=== PATIENT | female | born 1945 | race Caucasian/White ===

== ENCOUNTER 2020-01-23 12:45 | Outpatient (REF) | payer MEDICARE, SELFPAY ==
--- NOTE | 2020-01-23 12:53 | XR_ITS ---
EXAMINATION: XR HIP, LEFT CLINICAL INFORMATION: Follow-up fracture COMPARISON: Previous x-rays most recent November 2019 TECHNIQUE: Two views of the left hip. FINDINGS: There is an intramedullary bruce, proximal compression/lag screw single distal cortical screw transfixing the left femoral intertrochanteric fracture. Orthopedic hardware is unchanged. Fracture lines are still seen. Lesser trochanter fracture is displaced. There is bony callus formation seen adjacent to the greater and lesser trochanters. Soft tissues are unremarkable. IMPRESSION: ORIF of left femoral intertrochanteric fracture. Fracture line still seen.
== END 2020-01-23 12:46 | disposition home or self-care (01) ==
LOC: HO.XRAY 12:45
PROVIDERS: PCP Internal Medicine; Visit Provider Physician Assistant
DX: M25.552 Pain in left hip (principal); S72.143D Displaced intertrochanteric fracture of unspecified femur, subsequent encounter for closed fracture with routine healing
CPT/HCPCS: 73502; 99212

== ENCOUNTER → 2020-02-13 10:11 | Outpatient (BNVA) | payer MEDICARE, SELFPAY | PROVIDERS: PCP Internal Medicine; Visit Provider Surgery | DX: Z76.89 Persons encountering health services in other specified circumstances (principal) ==

== ENCOUNTER → 2020-02-17 11:36 | Outpatient (BNVA) | payer MEDICARE, SELFPAY | PROVIDERS: PCP Internal Medicine; Referring Provider Internal Medicine; Visit Provider Internal Medicine | DX: J44.9 Chronic obstructive pulmonary disease, unspecified (principal); R91.1 Solitary pulmonary nodule; Z79.52 Long term (current) use of systemic steroids | CPT/HCPCS: 99212 ==

== ENCOUNTER 2020-03-12 13:45 | Outpatient (REF) | payer MEDICARE, SELFPAY ==
--- NOTE | 2020-03-12 13:47 | CT_ITS ---
EXAMINATION: CT CHEST WITHOUT CONTRAST CLINICAL INFORMATION: Solitary pulmonary nodule COMPARISON: CT chest 12/21/2019 TECHNIQUE: Multidetector volumetric CT imaging of the chest was done. Axial MIP volume rendering provided. Sagittal and coronal reformatted images were obtained. This CT examination was performed using dose optimization techniques as appropriate, variously including the following: *Automated exposure control *Adjustment of mA and/or kV according to patient size (this includes techniques or standardized protocols for targeted exams where dose is matched to indication/reason for exam; i.e. 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 LUNGS: The lungs are hyperinflated with postsurgical changes in the right upper lobe following partial resection. There is a spiculated noted left lung apex measuring 8 x 7 mm surrounded with spiculations extending to the anterior pleura and adjacent parenchyma. It is suspicious. There is a left upper lobe anterior segment linear reticulation extending from the hilum to the anterior pleural surface consistent with a thick scar or postradiation pneumonitis. Similar findings also seen in the right upper lobe anterior segment at the same level. There is underlying mild emphysema with no new pulmonary nodule or mass seen. MEDIASTINUM: The central trachea and the bronchi are widely patent. The heart size and the great vessels are normal caliber. Small shotty lymph nodes are seen in the mediastinum. There are coronary artery calcifications. No pericardial effusion seen. Partially visualized thyroid lobes are symmetrical. PLEURA: There is no pleural effusion. No pleural mass or thickening. AXILLA: No abnormal sized axillary lymph nodes seen. There is 1.5 x 1.0 cm inferior left breast density on axial image 27/3. It appears unchanged to last exam and as back as CT chest from 2012. The rest of the chest wall is unremarkable. UPPER ABDOMEN: The liver, spleen, pancreas and bilateral adrenal glands are unremarkable. OSSEOUS STRUCTURES: There is moderate dextroscoliosis. There are degenerative disc changes with spondylosis in mid dorsal spine. No lytic or sclerotic process seen. There is S-shaped thoracal lumbar scoliosis with upper dorsal dextroscoliosis. CT/CT chest wo con IMPRESSION: 1. Emphysema with scoliosis. 2. Postsurgical changes right upper lobe posteriorly, stable. 3. Linear atelectasis in both upper lobe anterior segment likely post radiation changes, stable. 4. Spiculated lesion left lung apex is stable. 5. Left breast solitary density unchanged since 2012 likely residual seroma.
== END 2020-03-12 13:46 | disposition home or self-care (01) ==
LOC: HO.CT 13:45
PROVIDERS: Visit Provider Surgery
DX: R91.1 Solitary pulmonary nodule (principal); C34.11 Malignant neoplasm of upper lobe, right bronchus or lung; Z79.01 Long term (current) use of anticoagulants
CPT/HCPCS: 71250; 85610; 99211

== ENCOUNTER → 2020-03-26 10:38 | Outpatient (BNVA) | payer MEDICARE, SELFPAY | PROVIDERS: PCP Internal Medicine; Visit Provider Internal Medicine | DX: I26.99 Other pulmonary embolism without acute cor pulmonale (principal); Z51.81 Encounter for therapeutic drug level monitoring; Z79.01 Long term (current) use of anticoagulants | CPT/HCPCS: 85610; 99211; 99215 ==

== ENCOUNTER 2020-04-06 12:53 | Outpatient (REF) | payer MEDICARE, SELFPAY ==
--- NOTE | 2020-04-06 17:35 | PFT_ITS ---
INDICATION: Pulmonary nodule. SPIROMETRY: The FEV1 to FVC 38% with an FEV1 of 0.79 L, which is 44% predicted and an FVC of 2.05 L, which is 86% predicted. There was a significant response to bronchodilators noted. Maximum voluntary ventilation only 41% predicted. LUNG VOLUMES: Total lung capacity 108% predicted. The residual volume elevated at 132% predicted. DIFFUSION CAPACITY: DLCO 33% predicted. COMPARISONS: None. INTERPRETATION: There is an obstructive ventilatory defect consistent with severe COPD. Significant response to bronchodilators noted. There is also a severe decrease in maximum voluntary ventilation secondary to deconditioning and worsening dynamic inspiratory capacity. Lung volumes do demonstrate significant air trapping due to the COPD. There is severe diffusion impairment secondary to likely emphysema and other lung conditions. If surgery is being considered, a quantitative ventilation study may be warranted. should also be assessed. Clinical correlation warranted. Allen Weaver MD MR/MODL / [id number]
== END 2020-04-06 12:54 | disposition home or self-care (01) ==
LOC: HO.RESP 12:53
PROVIDERS: PCP Internal Medicine; Visit Provider Surgery
DX: R91.1 Solitary pulmonary nodule (principal)
CPT/HCPCS: 94060; 94727; 94729

== ENCOUNTER → 2020-04-08 14:13 | Outpatient (BNVA) | payer MEDICARE, SELFPAY | PROVIDERS: PCP Internal Medicine; Visit Provider Internal Medicine | DX: I26.99 Other pulmonary embolism without acute cor pulmonale (principal); Z51.81 Encounter for therapeutic drug level monitoring; Z79.01 Long term (current) use of anticoagulants | CPT/HCPCS: 85610; 99211 ==

== ENCOUNTER 2020-04-19 09:02 | Outpatient (REF) | payer MEDICARE, SELFPAY ==
[2020-04-19 09:59] LABS: MANUAL DIFF FLAG NO
[2020-04-19 10:02] LABS: Basophils Absolute Auto 0.1 X10*3/uL (0.0-0.2); Eosinophils Absolute Auto 0.3 X10*3/uL (0.0-0.4); Eosinophils Percent Auto 5.3 % (0-4); Hematocrit 41.9 % (37-47); Hemoglobin 13.3 g/dl (12.0-16.0); Imm Gran Abs Auto 0.02 X10*3/uL (0.00-0.03); Imm Gran Pct Auto 0.3 % (0.0-0.4); Lymphocytes Absolute Auto 1.6 X10*3/uL (1.2-4.9); Lymphocytes Percent Auto 26.3 % (20-40); Mean Corpuscular HGB Conc 31.7 g/dl (31.0-35.0); Mean Corpuscular Hemoglobin 32.1 pg (27.0-33.0); Mean Corpuscular Volume 101.2 fL (80-98); Mean Platelet Volume 10.6 fL (9.4-12.3); Monocytes Absolute Auto 0.5 X10*3/uL (0.1-1.2); Monocytes Percent Auto 8.3 % (2-11); Neutrophils Absolute Auto 3.6 X10*3/uL (2.0-8.3); Neutrophils Percent Auto 58.8 % (45-73); Platelet Count 235 X10*3/uL (160-400); Red Blood Count 4.14 X10*6/uL (4.20-5.50); Red Cell Distribution Width 16.5 % (11.0-16.0)
[2020-04-19 10:44] LABS: Alanine Aminotransferase 15 U/L (0-31); Albumin Level 3.9 g/dL (3.5-5.0); Alkaline Phosphatase 70 U/L (39-117); Anion Gap 12 (12-20); Aspartate Amino Transferase 19 U/L (5-31); Bilirubin Total 0.8 mg/dL (0.0-1.0); Blood Urea Nitrogen 18 mg/dL (9-16); Calcium 8.7 mg/dL (8.4-10.2); Carbon Dioxide 31 mmol/L (22-29); Chloride 106 mmol/L (96-108); Cholesterol 253 mg/dL; Estimated Glomerular Filt Rate > 60; Glucose Fasting 82 mg/dL (60-99); HDL Cholesterol 107 mg/dL; LDL Cholesterol Calculated 130 mg/dl; Potassium 4.8 mmol/l (3.3-5.1); Sodium 144 mmol/L (135-145); Total Protein 6.7 g/dL (6.5-8.0); Triglycerides 83 mg/dL
[2020-04-19 11:00] LABS: Vitamin D 25-OH Total 44.9 ng/mL (>30)
[2020-04-19 11:37] LABS: Glucose Urine UA NEG (NEG); Leukocyte Esterase Urine 1+ (NEG); Nitrite Urine NEG (NEG); Urine Blood NEG (NEG); Urine Ketones NEG (NEG); Urine Protein NEG (NEG-TRACE)
[2020-04-19 12:00] LABS: Appearance Urine HAZY; Color Urine YELLOW
[2020-04-19 12:14] LABS: Bacteria Urine 2+ /LPF; RBC Urine 0 /HPF (0); Squamous Epithelial Cell Urine 3+ /LPF
== END 2020-04-19 09:03 | disposition home or self-care (01) ==
LOC: HO.LAB 09:02
PROVIDERS: PCP Internal Medicine; Visit Provider Internal Medicine
DX: E78.00 Pure hypercholesterolemia, unspecified (principal); I10 Essential (primary) hypertension; E87.6 Hypokalemia; E55.9 Vitamin D deficiency, unspecified
CPT/HCPCS: 36415; 80053; 80061; 81001; 81003; 82306; 85025

== ENCOUNTER → 2020-04-29 14:03 | Outpatient (BNVA) | payer MEDICARE, SELFPAY | PROVIDERS: PCP Internal Medicine; Visit Provider Internal Medicine | DX: I26.99 Other pulmonary embolism without acute cor pulmonale (principal); Z51.81 Encounter for therapeutic drug level monitoring; Z79.01 Long term (current) use of anticoagulants | CPT/HCPCS: 85610; 99211 ==

== ENCOUNTER 2020-05-23 09:35 | Emergency (ER) | payer MEDICARE, SELFPAY ==
--- NOTE | ~2020-05-23 | CT_ITS ---
EXAMINATION: CT ANGIOGRAM OF THE CHEST WITH AND WITHOUT CONTRAST (CT PULMONARY ANGIOGRAM FOR PE) CLINICAL INFORMATION: Left lung pain status post VATS, history of lung cancer COMPARISON: CT chest from 03/12/2020 TECHNIQUE: Prior to contrast administration, noncontrast localization images were obtained. Subsequently, multidetector volumetric imaging was performed from the thoracic inlet to below the diaphragms following the administration of 65 mL Omnipaque 350 intravenous contrast. No contrast reaction reported Sagittal, coronal, and MIP oblique sagittal reformatted images were obtained on the CT workstation, uploaded to PACS, and reviewed. This CT examination was performed using dose optimization techniques as appropriate, variously including the following: *Automated exposure control *Adjustment of mA and/or kV according to patient size (this includes techniques or standardized protocols for targeted exams where dose is matched to indication/reason for exam; i.e. extremities or head) *Use of iterative reconstruction technique Total exam dose-length product 276.92 mGy-cm FINDINGS: QUALITY OF STUDY/CONTRAST BOLUS: Satisfactory. PULMONARY ARTERIES: No central or segmental pulmonary emboli. Enlargement of the main pulmonary artery suggesting pulmonary arterial hypertension. THORACIC AORTA: No aneurysm or dissection. Attending aorta measures up to 3.8 cm at the level of the main pulmonary artery. The descending thoracic aorta demonstrates a tortuous configuration with atherosclerotic calcification. LUNG/PLEURA: Stable postsurgical changes of the right upper lobe. New postsurgical changes of the left upper lobe now with a small left apical pneumothorax. The previously identified spiculated focus in the left lung apex is is not definitively visualized though there is a similar appearing region in the left lung apex along the surgical margins. Mild pleural thickening along the left upper lobe anterior pleura (series 10, image 172), possibly postsurgical in etiology. Redemonstration of left upper lobe anterior segment linear reticulations extending from the hilum to the pleural surface likely representing scar versus sequela of radiation. Central airways are otherwise patent. There is a small left pleural effusion with compressive atelectasis. There is right basilar atelectasis. PLEURA: No pleural effusion or pneumothorax. MEDIASTINUM: The heart is not enlarged. There is no pericardial effusion. Coronary artery calcifications are noted. No enlarged lymph nodes per size criteria. Visualized portions of the thyroid are unremarkable. No evidence of septal bowing or right heart strain. Redemonstration of a left breast lesion with a punctate calcification measuring1.6 cm, stable. AXILLA: No axillary or internal mammary lymphadenopathy. OSSEOUS STRUCTURES: Minimally displaced fractures of the left lateral seventh and eighth rib with subcutaneous emphysema. Pronounced S-shaped curvature of the thoracolumbar spine. Multilevel degenerative changes. No large lytic or blastic lesions are noted. UPPER ABDOMEN: Unremarkable. No reflux of contrast into the hepatic veins to suggest elevated right heart pressures. CT/CT angio chest PE protocol IMPRESSION: 1. No central or segmental pulmonary emboli. Enlargement of the main pulmonary artery suggesting pulmonary arterial hypertension. 2. New postsurgical changes of the left upper lobe/apex now with a small left apical pneumothorax. 3. Minimally displaced fractures of the left lateral seventh and eighth rib with subcutaneous emphysema. 4. Small left-sided pleural effusion with compressive atelectasis. 5. Previously identified spiculated focus in the left lung apex is is not definitively visualized though there is a similar appearing region in the left lung apex along the surgical margins. 6. Mild ectatic configuration of the ascending aorta measuring up to 3.8 cm the level of the main pulmonary artery. 7. Redemonstration of a left breast lesion with a punctate calcification measuring 1.6 cm, stable. This critical result was discussed with DARIELA ERIC by telephone on 05/23/2020 1:37 PM and it was ascertained that the content and urgency of the report was understood at the time of direct communication.
--- NOTE | ~2020-05-23 | XR_ITS ---
EXAMINATION: XR CHEST CLINICAL INFORMATION: Left chest pain status post VATS. History lung cancer. COMPARISON: March 12, 2020 and December 21, 2019 TECHNIQUE: AP portable view of the chest was obtained. FINDINGS: There is scoliosis of the thoracic spine convex right with bilateral regions of scarring and suture line in the left upper lobe. Heart normal size. No pulmonary edema. No pneumothorax. Old healed right rib fractures seen. XR/XR chest 1V IMPRESSION: No acute disease.
[2020-05-23 10:17] VITALS: BP 189/84; PULSE 66; RESP 18; TEMP 36.6; O2SAT 95; BMI 3782.9
[2020-05-23 10:52] VITALS: RESP 18
[2020-05-23] MEDS: HYDROmorphone HCl 0.5 MG/0.5 ML SYRINGE IVPUSH ×2 (10:52→13:10)
--- NOTE | 2020-05-23 10:52 | ED.GENADULT ---
HPI - General Adult General Chief complaint: General Medical Stated complaint: LEFT LUNG PAIN POST SURGERY Time Seen by Provider: 05/23/20 10:31 Source: patient Mode of arrival: ambulatory Limitations: no limitations History of Present Illness HPI narrative: 75 y/o female with history of COPD, history of RUL lung cancer s/p resection July 2019, history of PEx2 on Coumadin, history of LLL lung cancer s/p resection [address] Jacques at [facility] who presents to the ER from home with reports severe left lung pain for the last 5 days. She states post-operatively she was doing well and her pain was well controlled. She says on Sunday that she started with left lung pain mild at first and it became more severe by the end of the day. She has been taking Oxycodone and Tylenol for the pain. Today she took 2 Oxycodone with no relief so she came to the ER for further evaluation. She denies SOB or chest pain. She admits to congested cough but the pain inhibits her from taking deep breaths or coughing. No fevers at home. She has been compliant with her Coumadin. MD complaint: left lung pain Related Data Home Medications Medication Instructions Recorded Confirmed albuterol sulfate 4 mg 4 mg PO Q12H 01/23/20 03/26/20 tablet,extended release,12 hr erythromycin 250 mg tablet 250 mg PO BID 01/23/20 03/26/20 prednisone 5 mg tablet 5 mg PO DAILY 01/23/20 03/26/20 warfarin 3 mg tablet 3 mg PO Q OTHER DAY 01/23/20 04/29/20 alendronate 70 mg tablet 70 mg PO QWEEK 02/12/20 03/26/20 cholecalciferol (vitamin D3) 50 50 mcg PO DAILY 02/12/20 03/26/20 mcg (2,000 unit) capsule formoterol fumarate 20 mcg/2 mL 2 ml INHALATION BID 02/12/20 03/26/20 solution for nebulization guaifenesin 600 mg tablet, 600 mg PO Q12H PRN 02/12/20 03/26/20 extended release 12 hr ipratropium 0.5 mg-albuterol 3 mg 3 ml INHALATION Q6H PRN 02/12/20 03/26/20 (2.5 mg base)/3 mL nebulization soln celecoxib 200 mg capsule 200 mg PO DAILY PRN 02/13/20 03/26/20 Previous Rx's Medication Instructions Recorded formoterol fumarate 20 mcg/2 mL 2 ml INHALATION BID #60 ml 02/06/20 solution for nebulization azithromycin 250 mg tablet 250 mg PO Q OTHER DAY 30 Days #15 04/06/20 tab hydromorphone [Dilaudid] 2 mg PO Q4-6H PRN #12 tab 05/23/20 lidocaine [Lidoderm] 1 patch TOPICAL DAILY #15 ea 05/23/20 Allergies Allergy/AdvReac Type Severity Reaction Status Date / Time No Known Allergies Allergy Verified 04/29/20 14:04 Review of Systems Review of Systems: Constitutional: No Fever, No Chills ENT/Mouth: No sore throat, No Rhinorrhea, No Swallowing Difficulty Cardiovascular: + Chest Pain, + SOB (only when in severe pain), No Orthopnea, No Edema Respiratory: + Cough, No Sputum, No Wheezing, No dyspnea Gastrointestinal: No Nausea, No Vomiting, No Diarrhea, No abdominal Pain Genitourinary: No Dysuria, No Urinary Frequency, No Hematuria Musculoskeletal: No joint pain, No Myalgias Skin: No Skin Lesions, No rash Neuro: No Weakness, No Numbness, No Dizziness, No Headache Psych: No Anxiety/Panic, No Depression Heme/Lymph: No Bruising, No Lymphadenopathy Endocrine: No Polyuria, No Polydipsia PMFSH Past Medical History Attestation statement: The following information was validated with the patient. Medical History Chronic bronchitis COPD (chronic obstructive pulmonary disease) COPD (chronic obstructive pulmonary disease) Deficient knowledge of open reduction and internal (ORIF) fixation of hip History of lung cancer Surgical History H/O lumpectomy History of appendectomy History of lung surgery Social History Social History Alcohol intake: never Smoking Status: Former smoker Use of substances other than those prescribed or required for medical reasons: No Advance Directives: No Advance Directives Information Provided: Yes Physical Exam Vital Signs: Vital Signs: Last Vital Signs Temp 98.0 F 05/23/20 16:00 Pulse 57 05/23/20 16:00 Resp 16 05/23/20 16:00 BP 130/71 05/23/20 16:00 Pulse Ox 1 L 05/23/20 16:00 Body Mass Index 3782.9 Appearance: Alert. Oriented X3. No acute distress. Eyes: Pupils equal, round and reactive to light. ENT: Pharynx normal. Neck: Normal inspection. Neck supple. CVS: Normal heart rate and rhythm. Pulses normal. Respiratory: No respiratory distress. Breath sounds diminished at left lower lobe, congested cough noted. Poor inspiratory effort due to pain. 3 small well healed surgical sites on left lateral chest wall consistent with prior VATS Abdomen: Soft and non-tender. +BS x4 Skin: Skin warm and dry. Normal skin color. Normal skin turgor. No rashes. Extremities: No lower extremity edema. Neuro: Oriented X 3. No motor deficit. No sensory deficit. Course Course Course Narrative: 75 y/o female presenting with left lateral chest pain 2 weeks after lung resection done at [facility]. Concern for post-op pneumonia with weak cough, splinting. She also has history of PE x2 and is on Coumadin, will check INR and if subtherapeutic concern for recurrent PE in setting of recent surgery. She is not hypoxic or working to breath but appers uncomfortable. Dilaudid ordered as well as labs, EKG, and CTA chest for further assessment. Reevaluation(s) Reevaluation #1: Pain persists after IV dilaudid. Asking for additional pain control. She feels congested but trying not to cough due to the pain. When she got up to use the commode she desaturated to 82%, placed on 5L NC with recovery. Will repeat dose of IV dilaudid and give Tylenol now for pain. CTA pending. INR is subtherapeutic raising concern for recurrent PE. Reevaluation #2: CT scan showing small apical PTX and non-displaced rib fractures. Small left effusion with compressive atelectasis. Thoracic Surgery paged and discussed results with Reyna Diamond PA-C - apical PTX is normal post-operatively. No further intervention required. Patient continues to have significant pain with any movement. She has received 2 doses of IV dilaudid. She is agreeable to admission to the hospital for pain control and monitoring of respiratory status. Spoke with Riya Collado PA-C who discussed case with medical team - patient is not appropriate for admission to medical team, recommended admission to thoracic with medicine consult. Reevaluation #3: Reyna Diamond spoke with Dr. Altamirano who is unwilling to admit the patient at this time. He does not admit patients for pain control. He recommended changing pain med from oxycodone to oral diaudid, ATC Tylenol, NSAID and lidoderm patches. She was seen in the Thoracic Office on Sunday. Her CT finding of tiny PTX is normal post-operatively. Her hypoxia is chronic and she is supposed to be on chronic home O2 but she doesn't not wear it. He reports discharging patient on 3L NC. Patient states she has not been wearing it because her sats have been 94-95 at home. She monitors them closely. She has not been SOB or having difficulty breathing. Recommend PT evaluation and possible placement to rehab however patient is refusing. She would rather be discharged home with new pain regimen. She agrees to wear her oxygen, use her IS and follow up with her doctor. Will perform ambulatory pulse oximetry prior to d/c. Patient has been ambulated with 2L NC, Spo2 remained 98% without WOB. Her pain is adequately controlled. She is stable for discharge to the care of her son with trial of PO dilaudid. Encouraged to f/u with Thoracic & her PCP for further management. Consultations Consultation #1: Thoracic Surgery - Syed Diamond PA-C. Apical PTX is to be expected. Rib fx 7-8, non-displaced. Rec admission to medicine for pain control. Medical Decision Making Lab Data Result diagrams: 05/23/20 10:43 05/23/20 10:43 Labs: Lab Results 05/23/20 05/23/20 05/23/20 Range/Units 10:43 10:43 10:43 WBC 8.7 (4.8-10.8) X10*3/uL RBC 3.86 L (4.20-5.50) X10*6/uL Hgb 12.6 (12.0-16.0) g/dl Hct 40.1 (37-47) % MCV 103.9 H (80-98) fL MCH 32.6 (27.0-33.0) pg MCHC 31.4 (31.0-35.0) g/dl RDW 15.1 (11.0-16.0) % Plt Count 274 (160-400) X10*3/uL MPV 10.5 (9.4-12.3) fL Immature Gran % (Auto) 0.5 H (0.0-0.4) % Neut % (Auto) 72.9 (45-73) % Lymph % (Auto) 16.3 L (20-40) % [place] % (Auto) 6.7 (2-11) % Eos % (Auto) 3.1 (0-4) % Baso % (Auto) 0.5 (0-2) % Lymph # (Auto) 1.4 (1.2-4.9) X10*3/uL [place]win # (Auto) 0.6 (0.1-1.2) X10*3/uL Eos # (Auto) 0.3 (0.0-0.4) X10*3/uL Baso # (Auto) 0.0 (0.0-0.2) X10*3/uL Abs Immat Gran (auto) 0.04 H (0.00-0.03) X10*3/uL Absolute Neuts (auto) 6.3 (2.0-8.3) X10*3/uL Absolute Nucleated RBC 0.000 (0.0-0.012) X10*3/uL Nucleated RBC % (auto) 0.0 (0.0-0.2) /100WBC PT 17.1 H (10.8-13.0) SEC INR 1.4 H (0.9-1.1) APTT 35.2 (24.1-38.0) SEC Sodium 141 (135-145) mmol/L Potassium 4.1 (3.3-5.1) mmol/L Chloride 105 (96-108) mmol/L Carbon Dioxide 26 (22-29) mmol/L Anion Gap 14 (12-20) BUN 15 (9-16) mg/dL Creatinine 0.86 (0.5-1.4) mg/dL Estim Creat Clear Calc -19.1 Estimated GFR > 60 Random Glucose 82 (60-115) mg/dL Lactic Acid (0.5-2.0) mmol/L Calcium 8.8 (8.4-10.2) mg/dL Magnesium 2.0 (1.6-2.6) mg/dL Total Bilirubin 0.9 (0.0-1.0) mg/dL Direct Bilirubin 0.3 (0.0-0.5) mg/dL AST 36 H D (5-31) U/L ALT 91 H (0-31) U/L Alkaline Phosphatase 205 H D (39-117) U/L Troponin I High Sens (<3.5-17.0) ng/L B-Natriuretic Peptide (<100) pg/mL Total Protein 6.7 (6.5-8.0) g/dL Albumin 3.9 (3.5-5.0) g/dL Procalcitonin ng/mL Urine Color Urine Appearance Urine pH (5.0-8.0) Ur Specific [place] (1.005-1.025) Urine Protein (NEG-TRACE) MG/DL Urine Glucose (UA) (NEG) MG/DL Urine Ketones (NEG) MG/DL Urine Blood (NEG) Urine Nitrite (NEG) Ur Leukocyte Esterase (NEG) COVID-19 (CONSTANZA) (Negative) COVID-19 Clin Com 05/23/20 05/23/20 05/23/20 Range/Units 10:43 10:43 10:43 WBC (4.8-10.8) X10*3/uL RBC (4.20-5.50) X10*6/uL Hgb (12.0-16.0) g/dl Hct (37-47) % MCV (80-98) fL MCH (27.0-33.0) pg MCHC (31.0-35.0) g/dl RDW (11.0-16.0) % Plt Count (160-400) X10*3/uL MPV (9.4-12.3) fL Immature Gran % (Auto) (0.0-0.4) % Neut % (Auto) (45-73) % Lymph % (Auto) (20-40) % Irwin % (Auto) (2-11) % Eos % (Auto) (0-4) % Baso % (Auto) (0-2) % Lymph # (Auto) (1.2-4.9) X10*3/uL [place]win # (Auto) (0.1-1.2) X10*3/uL Eos # (Auto) (0.0-0.4) X10*3/uL Baso # (Auto) (0.0-0.2) X10*3/uL Abs Immat Gran (auto) (0.00-0.03) X10*3/uL Absolute Neuts (auto) (2.0-8.3) X10*3/uL Absolute Nucleated RBC (0.0-0.012) X10*3/uL Nucleated RBC % (auto) (0.0-0.2) /100WBC PT (10.8-13.0) SEC INR (0.9-1.1) APTT (24.1-38.0) SEC Sodium (135-145) mmol/L Potassium (3.3-5.1) mmol/L Chloride (96-108) mmol/L Carbon Dioxide (22-29) mmol/L Anion Gap (12-20) BUN (9-16) mg/dL Creatinine (0.5-1.4) mg/dL Estim Creat Clear Calc Estimated GFR Random Glucose (60-115) mg/dL Lactic Acid 1.0 (0.5-2.0) mmol/L Calcium (8.4-10.2) mg/dL Magnesium (1.6-2.6) mg/dL Total Bilirubin (0.0-1.0) mg/dL Direct Bilirubin (0.0-0.5) mg/dL AST (5-31) U/L ALT (0-31) U/L Alkaline Phosphatase (39-117) U/L Troponin I High Sens 6.1 (<3.5-17.0) ng/L B-Natriuretic Peptide 210 H (<100) pg/mL Total Protein (6.5-8.0) g/dL Albumin (3.5-5.0) g/dL Procalcitonin 0.02 ng/mL Urine Color Urine Appearance Urine pH (5.0-8.0) Ur Specific [place] (1.005-1.025) Urine Protein (NEG-TRACE) MG/DL Urine Glucose (UA) (NEG) MG/DL Urine Ketones (NEG) MG/DL Urine Blood (NEG) Urine Nitrite (NEG) Ur Leukocyte Esterase (NEG) COVID-19 (CONSTANZA) (Negative) COVID-19 Clin Com 05/23/20 05/23/20 05/23/20 Range/Units 13:12 14:06 14:35 WBC (4.8-10.8) X10*3/uL RBC (4.20-5.50) X10*6/uL Hgb (12.0-16.0) g/dl Hct (37-47) % MCV (80-98) fL MCH (27.0-33.0) pg MCHC (31.0-35.0) g/dl RDW (11.0-16.0) % Plt Count (160-400) X10*3/uL MPV (9.4-12.3) fL Immature Gran % (Auto) (0.0-0.4) % Neut % (Auto) (45-73) % Lymph % (Auto) (20-40) % Irwin % (Auto) (2-11) % Eos % (Auto) (0-4) % Baso % (Auto) (0-2) % Lymph # (Auto) (1.2-4.9) X10*3/uL [place] # (Auto) (0.1-1.2) X10*3/uL Eos # (Auto) (0.0-0.4) X10*3/uL Baso # (Auto) (0.0-0.2) X10*3/uL Abs Immat Gran (auto) (0.00-0.03) X10*3/uL Absolute Neuts (auto) (2.0-8.3) X10*3/uL Absolute Nucleated RBC (0.0-0.012) X10*3/uL Nucleated RBC % (auto) (0.0-0.2) /100WBC PT (10.8-13.0) SEC INR (0.9-1.1) APTT (24.1-38.0) SEC Sodium (135-145) mmol/L Potassium (3.3-5.1) mmol/L Chloride (96-108) mmol/L Carbon Dioxide (22-29) mmol/L Anion Gap (12-20) BUN (9-16) mg/dL Creatinine (0.5-1.4) mg/dL Estim Creat Clear Calc Estimated GFR Random Glucose (60-115) mg/dL Lactic Acid (0.5-2.0) mmol/L Calcium (8.4-10.2) mg/dL Magnesium (1.6-2.6) mg/dL Total Bilirubin (0.0-1.0) mg/dL Direct Bilirubin (0.0-0.5) mg/dL AST (5-31) U/L ALT (0-31) U/L Alkaline Phosphatase (39-117) U/L Troponin I High Sens 6.9 (<3.5-17.0) ng/L B-Natriuretic Peptide (<100) pg/mL Total Protein (6.5-8.0) g/dL Albumin (3.5-5.0) g/dL Procalcitonin ng/mL Urine Color YELLOW Urine Appearance CLEAR Urine pH 5.5 (5.0-8.0) Ur Specific [place] 1.010 (1.005-1.025) Urine Protein NEG (NEG-TRACE) MG/DL Urine Glucose (UA) NEG (NEG) MG/DL Urine Ketones NEG (NEG) MG/DL Urine Blood NEG (NEG) Urine Nitrite NEG (NEG) Ur Leukocyte Esterase NEG (NEG) COVID-19 (CONSTANZA) Negative (Negative) COVID-19 Clin Com See Note ECG Data Attestation: I personally reviewed and interpreted this ECG as follows: Interpretation: sinus bradycardia, HR 57 bpm, normal IL interval, normal QTc, isolated t-wave inversion in V1 Discharge Plan Discharge Clinical Impression: Fracture of rib Qualifiers: Encounter type: subsequent encounter Rib fracture type: multiple ribs Fracture type: closed Laterality: left Fracture healing: with routine healing Qualified Code(s): S22.42XD - Multiple fractures of ribs, left side, subsequent encounter for fracture with routine healing Patient Disposition: Home, Self-Care Instructions: Rib Fracture (ED), Video Assisted Thoracoscopic Surgery (DC) Additional Instructions: Your Coumadin level was low with an INR of 1.4. Follow up with your doctor for dosing recommendations. Your CT scan showed 2 rib fractures on the left side. Thoracic team recommends pain control and discharge home with oxygen. Use oxygen at home and monitor your oxygen saturations. Goal is 89-93%. Take the prescribed medication as needed for severe pain. Take Tylenol 1,000 mg every 6 hours around the clock. Maximum dose per day is 4,000 mg. Recommend Mucinex 1,200 mg every 12 hours for the next 5 days. It is very important to use your incentive spirometer every hour while awake at home. Follow up with your doctor on Sunday. If you develop shortness of breath, difficulty breathing, or if your oxygen saturations are less than 88% then come back to the ER. Prescriptions: New hydromorphone [Dilaudid] 2 mg tablet 2 mg PO Q4-6H PRN (Reason: pain) Qty: 12 RF: 0 lidocaine [Lidoderm] 5 % adhesive patch,medicated 1 patch topical DAILY Qty: 15 RF: 0 No Action formoterol fumarate [Perforomist] 20 mcg/2 mL solution for nebulization 2 ml inhalation BID Qty: 60 RF: 11 cholecalciferol (vitamin D3) 50 mcg (2,000 unit) capsule 50 mcg PO DAILY RF: 0 alendronate 70 mg tablet 70 mg PO QWEEK RF: 0 ipratropium-albuterol 0.5 mg-3 mg(2.5 mg base)/3 mL solution for nebulization 3 ml inhalation Q6H PRNRF: 0 Perforomist 20 mcg/2 mL solution for nebulization 2 ml inhalation BID RF: 0 guaifenesin [Mucus Relief ER] 600 mg tablet extended release 12hr 600 mg PO Q12H PRNRF: 0 azithromycin 250 mg tablet 250 mg PO Q OTHER DAY 30 Days Qty: 15 RF: 3 warfarin 3 mg tablet 3 mg PO Q OTHER DAY RF: 0 prednisone 5 mg tablet 5 mg PO DAILY RF: 0 erythromycin 250 mg tablet 250 mg PO BID RF: 0 albuterol sulfate 4 mg tablet extended release 12 hr 4 mg PO Q12H RF: 0 celecoxib 200 mg capsule 200 mg PO DAILY PRNRF: 0 Referrals: Endy Diamond PA [[facility]] - 3 days
[2020-05-23 10:59] LABS: MANUAL DIFF FLAG NO
[2020-05-23 11:01] LABS: INTERNATIONAL NORM RATIO 1.4 (0.9-1.1); Prothrombin Time 17.1 SEC (10.8-13.0)
[2020-05-23 11:03] LABS: Partial Thromboplastin Time 35.2 SEC (24.1-38.0)
[2020-05-23 11:04] LABS: Basophils Percent Auto 0.5 % (0-2); Eosinophils Absolute Auto 0.3 X10*3/uL (0.0-0.4); Eosinophils Percent Auto 3.1 % (0-4); Hematocrit 40.1 % (37-47); Hemoglobin 12.6 g/dl (12.0-16.0); Imm Gran Abs Auto 0.04 X10*3/uL (0.00-0.03); Imm Gran Pct Auto 0.5 % (0.0-0.4); Lymphocytes Absolute Auto 1.4 X10*3/uL (1.2-4.9); Lymphocytes Percent Auto 16.3 % (20-40); Mean Corpuscular HGB Conc 31.4 g/dl (31.0-35.0); Mean Corpuscular Hemoglobin 32.6 pg (27.0-33.0); Mean Corpuscular Volume 103.9 fL (80-98); Mean Platelet Volume 10.5 fL (9.4-12.3); Monocytes Absolute Auto 0.6 X10*3/uL (0.1-1.2); Monocytes Percent Auto 6.7 % (2-11); Neutrophils Absolute Auto 6.3 X10*3/uL (2.0-8.3); Neutrophils Percent Auto 72.9 % (45-73); Platelet Count 274 X10*3/uL (160-400); Red Blood Count 3.86 X10*6/uL (4.20-5.50); Red Cell Distribution Width 15.1 % (11.0-16.0); White Blood Count 8.7 X10*3/uL (4.8-10.8)
--- NOTE | 2020-05-23 11:31 | ECG_ITS ---
Test Reason : LEFT SIDE CHEST PAIN Blood Pressure : / mmHG Vent. Rate : 057 BPM Atrial Rate : 057 BPM P-R Int : 178 ms QRS Dur : 074 ms QT Int : 484 ms P-R-T Axes : 034 -14 042 degrees QTc Int : 471 ms Sinus bradycardia Moderate voltage criteria for LVH, may be normal variant Borderline ECG When compared to the previous EKG of Premature atrial complexes not present Referred By: Viry Patel Electronically Signed By:Philip Nagel
[2020-05-23 11:33] LABS: Alanine Aminotransferase 91 U/L (0-31); Albumin Level 3.9 g/dL (3.5-5.0); Alkaline Phosphatase 205 U/L (39-117); Anion Gap 14 (12-20); Aspartate Amino Transferase 36 U/L (5-31); Bilirubin Direct 0.3 mg/dL (0.0-0.5); Bilirubin Total 0.9 mg/dL (0.0-1.0); Blood Urea Nitrogen 15 mg/dL (9-16); Calcium 8.8 mg/dL (8.4-10.2); Carbon Dioxide 26 mmol/L (22-29); Chloride 105 mmol/L (96-108); Creatinine Clr Calc Pharmacy -19.1; Estimated Glomerular Filt Rate > 60; Glucose Random 82 mg/dL (60-115); Potassium 4.1 mmol/L (3.3-5.1); Sodium 141 mmol/L (135-145); Total Protein 6.7 g/dL (6.5-8.0)
[2020-05-23 11:37] LABS: Procalcitonin 0.02 ng/mL
[2020-05-23 11:41] LABS: B Type Natriuretic Peptide 210 pg/mL (<100)
--- NOTE | 2020-05-23 11:50 | PC.NURSE ---
PT UP TO COMMODE, SPO2 DOWN TO 81% ON RA. TO BE KEPT ON 2L O2 FOR NOW, SPO2>95%
[2020-05-23 11:54] LABS: Troponin-I High Sensitivity 6.1 ng/L (<3.5-17.0)
[2020-05-23 13:00] VITALS: BP 189/92; PULSE 73; RESP 16; TEMP 36.6; O2SAT 92
[2020-05-23] MEDS: iohexoL 350 MG/ML 100 ML INFUS..BTL IV (13:06)
[2020-05-23 13:10] VITALS: RESP 22
[2020-05-23] MEDS: Acetaminophen 325 MG TABLET 975 MG PO (13:10)
[2020-05-23 13:36] LABS: Glucose Urine UA NEG (NEG); Leukocyte Esterase Urine NEG (NEG); Nitrite Urine NEG (NEG); PH 5.5 (5.0-8.0); Urine Blood NEG (NEG); Urine Ketones NEG (NEG); Urine Protein NEG (NEG-TRACE)
[2020-05-23 13:38] LABS: Appearance Urine CLEAR; Color Urine YELLOW
[2020-05-23 14:28] LABS: COVID-19 Test Negative (Negative); IDNOW Serial# 9DD0AD1C
[2020-05-23] MEDS: Ipratropium Bromide 0.5 MG/2.5 ML SOLUTION INHALE (14:47)
[2020-05-23 14:48] VITALS: PULSE 76; O2SAT 99
[2020-05-23 15:06] LABS: Troponin-I High Sensitivity 6.9 ng/L (<3.5-17.0)
[2020-05-23] MEDS: HYDROmorphone HCl 2 MG TABLET PO (15:19)
[2020-05-23] MEDS: Lidocaine 4 % Patch ADH..PATCH 1 PATCH TRANSDERMA (15:20)
[2020-05-23 16:00] VITALS: BP 130/71; PULSE 57; RESP 16; TEMP 36.7; O2SAT 1
--- NOTE | 2020-05-23 17:18 | PC.NURSE ---
PT TOLERATED TRIAL TO AMBULATE WITH 2L O2. SPO2 REMAINED >95% THROUGHOUT. PT STILL C//O PAIN.
== END 2020-05-23 18:18 | disposition home or self-care (01) ==
PROVIDERS: Physician Assistant; Emergency Provider Emergency Medicine Emergency Medical Services; PCP Internal Medicine
DX: S22.42XA Multiple fractures of ribs, left side, initial encounter for closed fracture (principal); R07.9 Chest pain, unspecified; R05 Cough; X58.XXXA Exposure to other specified factors, initial encounter; Y93.9 Activity, unspecified; Y92.9 Unspecified place or not applicable; Y99.9 Unspecified external cause status; Z20.822 Contact with and (suspected) exposure to COVID-19; Z79.899 Other long term (current) drug therapy; Z79.01 Long term (current) use of anticoagulants; Z87.891 Personal history of nicotine dependence; Z91.14 Patient's other noncompliance with medication regimen
CPT/HCPCS: 36415; 71045; 71275; 80048; 80076; 81003; 83605; 83735; 83880; 84145; 84484; 85025; 85610; 85730; 87040; 87635; 93005; 94640; 96374; 96376; 99284; J1170; Q9967

== ENCOUNTER → 2020-06-15 13:28 | Outpatient (BNVA) | payer MEDICARE, SELFPAY | PROVIDERS: PCP Internal Medicine; Visit Provider Internal Medicine | DX: J44.9 Chronic obstructive pulmonary disease, unspecified (principal); R91.1 Solitary pulmonary nodule; Z79.51 Long term (current) use of inhaled steroids; Z87.891 Personal history of nicotine dependence | CPT/HCPCS: 99212 ==

== ENCOUNTER → 2020-06-17 13:03 | Outpatient (BNVA) | payer MEDICARE, SELFPAY | PROVIDERS: PCP Internal Medicine; Visit Provider Internal Medicine | DX: I26.99 Other pulmonary embolism without acute cor pulmonale (principal); Z51.81 Encounter for therapeutic drug level monitoring; Z79.01 Long term (current) use of anticoagulants | CPT/HCPCS: 85610; 99211 ==

== ENCOUNTER → 2020-06-25 14:02 | Outpatient (BNVA) | payer MEDICARE, SELFPAY | PROVIDERS: PCP Internal Medicine; Visit Provider Internal Medicine | DX: I26.99 Other pulmonary embolism without acute cor pulmonale (principal); Z51.81 Encounter for therapeutic drug level monitoring; Z79.01 Long term (current) use of anticoagulants | CPT/HCPCS: 85610; 99211 ==

== ENCOUNTER → 2020-07-09 14:23 | Outpatient (BNVA) | payer MEDICARE, SELFPAY | PROVIDERS: PCP Internal Medicine; Visit Provider Internal Medicine | DX: I26.99 Other pulmonary embolism without acute cor pulmonale (principal); Z51.81 Encounter for therapeutic drug level monitoring; Z79.01 Long term (current) use of anticoagulants | CPT/HCPCS: 85610; 99211 ==

== ENCOUNTER → 2020-07-30 13:18 | Outpatient (BNVA) | payer MEDICARE, SELFPAY | PROVIDERS: PCP Internal Medicine; Visit Provider Internal Medicine | DX: I26.99 Other pulmonary embolism without acute cor pulmonale (principal); Z79.01 Long term (current) use of anticoagulants; Z51.81 Encounter for therapeutic drug level monitoring | CPT/HCPCS: 85610; 99211 ==

== ENCOUNTER 2020-08-18 12:00 | Outpatient (REF) | payer MEDICARE, SELFPAY ==
--- NOTE | ~2020-08-18 | MM_ITS ---
EXAMINATION: MM SCREENING DIGITAL BREAST TOMOSYNTHESIS, BILATERAL CLINICAL INFORMATION: Screening. Asymptomatic. Prior history left lumpectomy for breast cancer 2009. Due for yearly. COMPARISON: Mammography: 05/23/2019, 07/31/2018, 07/30/2017, 07/25/2016 TECHNIQUE: Digital breast tomosynthesis is performed in both the craniocaudal and mediolateral oblique views along with computer-aided detection (CAD). Synthesized 2D images are generated from the tomosynthesis. FINDINGS: There are scattered areas of fibroglandular density (ACR BI-RADS breast composition Category b). Parenchymal pattern is similar to prior exams. The left breast has post surgical changes with mild reduced breast size and stable scarring posterior breast. There are scattered bilateral parenchymal densities, similar pattern to previous exams. No developing density or interval mass or interval architectural changes. No abnormal calcifications. No significant changes. MM/MM tomosynthesis screening BI IMPRESSION: No mammographic evidence of malignancy. Post therapy changes left breast. ASSESSMENT: BI-RADS 2: Benign RECOMMENDATION: Routine annual mammography screening. This patient's information was entered into a reminder system with a target due date for their next mammogram.
== END 2020-08-18 12:01 | disposition home or self-care (01) ==
LOC: HO.MAMMO 12:00
PROVIDERS: Visit Provider Internal Medicine
DX: Z12.31 Encounter for screening mammogram for malignant neoplasm of breast (principal)
CPT/HCPCS: 77063; 77067

== ENCOUNTER → 2020-08-20 13:21 | Outpatient (BNVA) | payer MEDICARE, SELFPAY | PROVIDERS: PCP Internal Medicine; Visit Provider Internal Medicine | DX: I26.99 Other pulmonary embolism without acute cor pulmonale (principal); Z51.81 Encounter for therapeutic drug level monitoring; Z79.01 Long term (current) use of anticoagulants | CPT/HCPCS: 85610; 99211 ==

== ENCOUNTER → 2020-09-03 13:39 | Outpatient (BNVA) | payer MEDICARE, SELFPAY | PROVIDERS: PCP Internal Medicine; Visit Provider Internal Medicine | DX: I26.99 Other pulmonary embolism without acute cor pulmonale (principal); Z51.81 Encounter for therapeutic drug level monitoring; Z79.01 Long term (current) use of anticoagulants | CPT/HCPCS: 85610; 99211 ==

== ENCOUNTER → 2020-09-17 13:35 | Outpatient (BNVA) | payer MEDICARE, SELFPAY | PROVIDERS: PCP Internal Medicine; Visit Provider Internal Medicine | DX: I26.99 Other pulmonary embolism without acute cor pulmonale (principal); Z51.81 Encounter for therapeutic drug level monitoring; Z79.01 Long term (current) use of anticoagulants | CPT/HCPCS: 85610; 99211 ==

== ENCOUNTER → 2020-09-29 13:58 | Outpatient (BNVA) | payer MEDICARE, SELFPAY | PROVIDERS: PCP Internal Medicine; Visit Provider Internal Medicine | DX: Z95.2 Presence of prosthetic heart valve (principal); Z51.81 Encounter for therapeutic drug level monitoring; Z79.01 Long term (current) use of anticoagulants | CPT/HCPCS: 85610; 99211 ==

== ENCOUNTER → 2020-10-18 13:40 | Outpatient (BNVA) | payer MEDICARE, SELFPAY | PROVIDERS: PCP Internal Medicine; Visit Provider Internal Medicine | DX: J44.9 Chronic obstructive pulmonary disease, unspecified (principal); J42 Unspecified chronic bronchitis; C34.11 Malignant neoplasm of upper lobe, right bronchus or lung | CPT/HCPCS: 99212 ==

== ENCOUNTER → 2020-10-20 14:07 | Outpatient (BNVA) | payer MEDICARE, SELFPAY | PROVIDERS: PCP Internal Medicine; Visit Provider Internal Medicine | DX: I26.99 Other pulmonary embolism without acute cor pulmonale (principal); Z51.81 Encounter for therapeutic drug level monitoring; Z79.01 Long term (current) use of anticoagulants | CPT/HCPCS: 85610; 99211 ==

== ENCOUNTER 2020-10-28 13:00 | Outpatient (REF) | payer MEDICARE, SELFPAY ==
--- NOTE | ~2020-10-28 | CT_ITS ---
EXAMINATION: CT CHEST WITHOUT CONTRAST CLINICAL INFORMATION: Solitary pulmonary nodule. COMPARISON: None TECHNIQUE: Multidetector volumetric CT imaging of the chest was done. Axial MIP volume rendering provided. Sagittal and coronal reformatted images were obtained. This CT examination was performed using dose optimization techniques as appropriate, variously including the following: *Automated exposure control *Adjustment of mA and/or kV according to patient size (this includes techniques or standardized protocols for targeted exams where dose is matched to indication/reason for exam; i.e. extremities or head) *Use of iterative reconstruction technique DLP: 150 mGy-cm FINDINGS: BANK BOSS: Well-inflated lungs with moderate dextrorotoscoliosis dorsal spine. LUNGS: The lungs are expanded. There are bilateral postsurgical changes in the upper lobes. There is no spiculated lesion or nodule seen in the left or the right upper lobe. Linear striations extending from the suprahilar region to the anterior pleural space are stable, likely chronic scarring. Minimal atelectatic changes or scarring is seen in the right upper lobe anteriorly. There is a 1 mm nodule left lower lobe axial image 406/7. No additional pulmonary nodules, mass or consolidation seen. MEDIASTINUM: The thyroid lobes are symmetrical and normal. The central trachea and the bronchi are widely patent. The heart size and the great vessels are normal caliber. There are coronary artery calcifications present. No pericardial effusion seen. PLEURA: There is no pleural effusion. No pleural mass or thickening. AXILLA: No lymphadenopathy. There is a 1.9 cm left breast lesion, previously measured 1.6 cm. UPPER ABDOMEN: Visualized liver, spleen, pancreas, and bilateral adrenal glands are unremarkable. OSSEOUS STRUCTURES: There is dextroscoliosis dorsal spine. No lytic or sclerotic process seen. There are healing fractures left lateral 6th through 9th ribs. CT/CT chest wo con IMPRESSION: Postsurgical changes with scarring both upper lobes and reticular interstitial thickening left upper lobe anterior segment, likely chronic scarring or atelectasis. Scoliosis. Healing left 6th through 9th rib fractures.
== END 2020-10-28 13:01 | disposition home or self-care (01) ==
LOC: HO.CT 13:00
PROVIDERS: Visit Provider Surgery
DX: C34.11 Malignant neoplasm of upper lobe, right bronchus or lung (principal); J44.9 Chronic obstructive pulmonary disease, unspecified; R91.1 Solitary pulmonary nodule
CPT/HCPCS: 71250

== ENCOUNTER 2020-10-31 09:18 | Emergency (ER) | payer MEDICARE, SELFPAY ==
--- NOTE | ~2020-10-31 | CT_ITS ---
EXAMINATION: CT ANGIOGRAM OF THE CHEST WITH AND WITHOUT CONTRAST (CT PULMONARY ANGIOGRAM FOR PE) CLINICAL INFORMATION: Reason for Exam Worsening SOB/new oxygen requirement. History of PE COMPARISON: October 28, 2020 and May 23, 2020 TECHNIQUE: Prior to contrast administration, noncontrast localization images were obtained. Subsequently, multidetector volumetric imaging was performed from the thoracic inlet to below the diaphragms following the administration of 65 mL Omnipaque 350 intravenous contrast. No contrast reaction reported Sagittal, coronal, and MIP oblique sagittal reformatted images were obtained on the CT workstation, uploaded to PACS, and reviewed. This CT examination was performed using dose optimization techniques as appropriate, variously including the following: *Automated exposure control *Adjustment of mA and/or kV according to patient size (this includes techniques or standardized protocols for targeted exams where dose is matched to indication/reason for exam; i.e. extremities or head) *Use of iterative reconstruction technique Total exam dose-length product 351 mGy-cm FINDINGS: QUALITY OF STUDY/CONTRAST BOLUS: Satisfactory. PULMONARY ARTERIES: No central or segmental pulmonary emboli. THORACIC AORTA: No aneurysm or dissection. LUNG: There are stable postsurgical change within the central airways are patent. Calcified granulomas present. Adjacent to the left hilum within the left upper lobe there is an 8 mm noncalcified circumscribed density on image 150 of 603 on series #8. This may represent a lung mass or lymph node. This was not definitely identified on previous study of May 23, 2020. PLEURA: No pleural effusion or pneumothorax. MEDIASTINUM: Visualized thyroid gland unremarkable. Normal heart size. No pericardial effusion. Cardia artery calcification present. Pulmonary arteries are prominent consistent with pulmonary artery hypertension. No thoracic aortic aneurysm or dissection. 8 mm either left hilar lymph node or mass. There remains some stable bilateral hilar interstitial prominence. No evidence of septal bowing or right heart strain. CHEST WALL/AXILLA: No axillary or internal mammary lymphadenopathy. OSSEOUS STRUCTURES: There is scoliosis of the thoracic spine convex right and lumbar spine convex left. Multilevel degenerative disc disease is seen. There is calcific tendinitis of the right shoulder. There are bilateral healed rib fractures. There is a nondisplaced left ninth rib fracture posterior laterally with fracture line still being evident and no definite evidence of healing. This may represent an acute fracture. UPPER ABDOMEN: Unremarkable. No reflux of contrast into the hepatic veins to suggest elevated right heart pressures. CT/CT angio chest PE protocol IMPRESSION: No evidence of acute pulmonary artery embolus. No evidence of thoracic aortic aneurysm or dissection. Postsurgical change bilaterally. Prominence of the pulmonary arteries consistent with pulmonary artery hypertension. Question new 8 mm nodular density adjacent to the left hilum which could be related to malignancy. VTE: negative
[2020-10-31 09:26] VITALS: BP 181/91; PULSE 87; RESP 18; TEMP 36.8; O2SAT 88; BMI 28.3
[2020-10-31 09:30] VITALS: O2SAT 97
--- NOTE | 2020-10-31 10:01 | ECG_ITS ---
Test Reason : SOB Blood Pressure : / mmHG Vent. Rate : 082 BPM Atrial Rate : 082 BPM P-R Int : 158 ms QRS Dur : 068 ms QT Int : 410 ms P-R-T Axes : 059 000 031 degrees QTc Int : 479 ms Normal sinus rhythm Normal ECG When compared with ECG of 23-MAY-2020 11:41, Premature atrial complexes are no longer Present Referred By: Nettie Ellis Electronically Signed By:ANAT [email or web address]
--- NOTE | 2020-10-31 10:03 | ED.SOB ---
HPI - SOB/Dyspnea General Chief Complaint: Dyspnea <BRODIE Mccarthy - Last Filed: 10/31/20 15:46> Stated Complaint: DIFF BREATHING <BRODIE Mccarthy - Last Filed: 10/31/20 15:46> Time Seen by Provider: 10/31/20 09:33 <BRODIE Mccarthy - Last Filed: 10/31/20 15:46> Source: patient <BRODIE Mccarthy - Last Filed: 10/31/20 15:46> History of Present Illness HPI Narrative: 75 y/o female with history of COPD on 5 mg of Prednisone daily, bronchitis, Hx RUL lung cancer s/p resection July, Hx of PEx2 on Coumadin, Hx of LLL lung cancer, home O2 p.r.n., presenting to the ED complaining of increased SOB x2 weeks worsening over the past 3 days. Also reports cough, fever T-max 99.7?, LE edema and O2 requirement. Reports pain feels similar to prior PE. Denies chills, chest pain, abdominal pain, nausea/vomiting <BRODIE Mccarthy - Last Filed: 10/31/20 15:46> MD elicited complaint: shortness of breath, cough and pain with inspiration <BRODIE Mccarthy Last Filed: 10/31/20 15:46> Related Data Home Medications: Home Medications Medication Instructions Recorded Confirmed warfarin 3 mg tablet 3 mg PO Q OTHER DAY 01/23/20 10/20/20 alendronate 70 mg tablet 70 mg PO QWEEK 02/12/20 10/20/20 cholecalciferol (vitamin D3) 50 50 mcg PO DAILY 02/12/20 10/20/20 mcg (2,000 unit) capsule guaifenesin 600 mg tablet, 600 mg PO Q12H PRN 02/12/20 10/20/20 extended release 12 hr celecoxib 200 mg capsule 200 mg PO DAILY PRN 02/13/20 10/20/20 COVID-19 vacc,mRNA(Pfizer)(PF) 30 0.3 ml IM Q3W 09/17/20 10/20/20 mcg/0.3 mL IM susp (EUA) Previous Rx's Medication Instructions Recorded formoterol fumarate 20 mcg/2 mL 2 ml INHALATION BID #60 ml 02/05/ solution for nebulization prednisone 5 mg tablet 5 mg PO DAILY #30 tab 06/07/20 Ventolin HFA 90 mcg/actuation 2 puff INHALATION Q4-6H PRN #18 g 06/08/20 aerosol inhaler NS azithromycin 250 mg tablet 250 mg PO 3XW 90 Days #39 tab 06/15/20 prednisone 5 mg tablet 5 mg PO DAILY 90 Days #90 tab 06/15/20 azithromycin 250 mg tablet 250 mg PO Q OTHER DAY #15 cap 07/29/20 azithromycin 250 mg tablet 250 mg PO DAILY 90 Days #90 tab 10/18/20 ipratropium 0.5 mg-albuterol 3 mg 3 ml INHALATION Q6H PRN 30 Days 10/25/20 (2.5 mg base)/3 mL nebulization #270 ml soln prednisone 10 mg PO DAILY #26 tab 10/31/20 <BRODIE Mccarthy - Last Filed: 10/31/20 15:46> Allergies/Adverse Reactions: Allergies Allergy/AdvReac Type Severity Reaction Status Date / Time No Known Allergies Allergy Verified 10/18/20 13:50 <BRODIE Mccarthy Last Filed: 10/31/20 15:46> Review of Systems Review of Systems: Constitutional: +Fever, No Chills, No Night Sweats, No Fatigue, No Malaise ENT/Mouth: No Ear Pain, No Nasal Congestion, No sore throat, No Rhinorrhea Cardiovascular: No Chest Pain, + SOB, + Dyspnea on Exertion, No Orthopnea, + Edema, No Palpitations Respiratory: + Cough, No Sputum, + Wheezing, + Dyspnea Gastrointestinal: No Nausea, No Vomiting, No Abdominal pain Genitourinary: No Dysuria, No Urinary Frequency, No Hematuria Musculoskeletal: No joint pain, No Myalgias Skin: No Skin Lesions, No rash Neuro: No Weakness, No Headache <BRODIE Mccarthy Last Filed: 10/31/20 15:46> Yes all other systems are reviewed and are negative <BRODIE Mccarthy Last Filed: 10/31/20 15:46> PMFSH Past Medical History Attestation statement: The following information was validated with the patient. <BRODIE Mccarthy Last Filed: 10/31/20 15:46> Medical History: Medical History Chronic bronchitis COPD (chronic obstructive pulmonary disease) COPD (chronic obstructive pulmonary disease) Deficient knowledge of open reduction and internal (ORIF) fixation of hip History of lung cancer <BRODIE Mccarthy - Last Filed: 10/31/20 15:46> Surgical History: Surgical History H/O lumpectomy History of appendectomy History of lung surgery <BROIDE Mccarthy - Last Filed: 10/31/20 15:46> Social History Social History: Social History Alcohol intake: never Advance Directives: Yes Advance Directives Information Provided: Yes Advance Directives on File: No <BRODIE Mccarthy - Last Filed: 10/31/20 15:46> Physical Exam Vital Signs: Vital Signs: Last Vital Signs Temp 98.2 F 10/31/20 09:26 Pulse 81 10/31/20 13:16 Resp 18 10/31/20 09:26 BP 181/91 H 10/31/20 09:26 Pulse Ox 97 10/31/20 09:30 Body Mass Index 28.3 <BRODIE Mccarthy - Last Filed: 10/31/20 15:46> Vital Signs: Last Vital Signs Temp 98.2 F 10/31/20 09:26 Pulse 81 10/31/20 13:16 Resp 18 10/31/20 09:26 BP 181/91 H 10/31/20 09:26 Pulse Ox 97 10/31/20 09:30 Body Mass Index 28.3 <Josue Burch MD - Last Filed: 10/31/20 15:34> Const: General: cooperative, alert and awake <BRODIE Mccarthy - Last Filed: 10/31/20 15:46> Orientation/consciousness: patient oriented x3 <BRODIE Mccarthy - Last Filed: 10/31/20 15:46> Limitations: no limitations <BRODIE Mccarthy - Last Filed: 10/31/20 15:46> HENMT: Head: Yes normal to inspection <BRODIE Mccarthy - Last Filed: 10/31/20 15:46> Ears: hearing grossly normal bilaterally <Nettie Rhonda [place] - Last Filed: 10/31/20 15:46> General nose exam: Normal external nose present <Nettie Rhonda [place] - Last Filed: 10/31/20 15:46> Face and sinus: Yes normal facial exam <Nettie Rhonda [place] - Last Filed: 10/31/20 15:46> Eyes: General: appearance normal, both eyes and all related structures <Nettie Rhonda [place] - Last Filed: 10/31/20 15:46> EOM: EOMs intact bilaterally <Nettie Rhonda [place] - Last Filed: 10/31/20 15:46> Neck: Neck: Yes normal visual inspection and Yes no meningeal signs <Nettie Rhonda [place] - Last Filed: 10/31/20 15:46> Resp: Effort & Inspection: normal respiratory effort <Nettie Rhonda [place] - Last Filed: 10/31/20 15:46> Auscultation: wheezes expiratory wheezes and throughout and diminished lung sounds on the right in the lower lung [place] <Nettie Rhonda [place] - Last Filed: 10/31/20 15:46> Cardio: Rate: regular rate <Nettie Ellis [place] - Last Filed: 10/31/20 15:46> Heart sounds: S1 normal heart sound present and S2 normal heart sound present <Nettie [facility] [place] - Last Filed: 10/31/20 15:46> GI: Inspection: Yes normal to inspection <Nettie Rhonda [place] - Last Filed: 10/31/20 15:46> Palpation (GI): Soft to palpation, nontender and no guarding <Nettie Rhonda [place] - Last Filed: 10/31/20 15:46> Skin: Rashes: no rashes <Nettie Rhonda [place] - Last Filed: 10/31/20 15:46> Wounds: no wounds <Nettie Rhonda [place] - Last Filed: 10/31/20 15:46> Neuro: General: patient oriented x3 and no meningeal signs <Nettie Rhonda [place] - Last Filed: 10/31/20 15:46> Gait exam (Neuro): Normal gait present <Nettiemaya Ellis [place] - Last Filed: 10/31/20 15:46> Extrem: General: Yes normal to inspection <BRODIE Mccarthy - Last Filed: 10/31/20 15:46> Course Course Course Narrative: -1130--no leukocytosis, H&H is stable, INR therapeutic at 2.9, troponin elevated at 10.2 elevated in the past >will obtain 3 hour repeat -1251--Lactic negative, COVID-19/influenza/RSV negative CT angio chest PE protocol IMPRESSION: No evidence of acute pulmonary artery embolus. No evidence of thoracic aortic aneurysm or dissection. Postsurgical change bilaterally. Prominence of the pulmonary arteries consistent with pulmonary artery hypertension. Question new 8 mm nodular density adjacent to the left hilum which could be related to malignancy. VTE: negative -1538--repeat troponin without 50% rise. Patient is satting 95-96% on 2L NC which she has at home. Results discussed with patient including possible new nodular density in lungs related to malignancy. Patient would like to be discharged home, attempted to speak with patient's artist relationship manager however was unable to reach. Plan to increase patient's prednisone and DC home with close pulmonology follow-up. Worrisome signs and symptoms and strict return precautions discussed, she verbalized understanding feel safe for discharge <BRODIE Mccarthy - Last Filed: 10/31/20 15:46> Reevaluation(s) Reevaluation #1: I have discussed the case and management with the LAKHW[facility]ER. Would increase steriods and dc home <Josue Burch MD - Last Filed: 10/31/20 15:34> Time: 15:33 <Josue Burch MD - Last Filed: 10/31/20 15:34> MDM - SOB/Dyspnea MDM Narrative Medical decision making narrative: 75 y/o female with history of COPD on 5 mg of Prednisone daily, bronchitis, Hx RUL lung cancer s/p resection July, Hx of PEx2 on Coumadin, Hx of LLL lung cancer, home O2 p.r.n., presenting to the ED complaining of increased SOB x2 weeks worsening over the past 3 days. On exam satting 97% on 2 L NC, prolonged expiratory wheeze, diminished breath sounds in RLL, no pedal edema. Concern for COPD exacerbation vs viral syndrome/COVID-19 vs pneumonia vs PE. Lower concern for CHF Low suspicion for severe sepsis at this time Plan: EKG, labs, CXR, anticipated CTA, DuoNeb, Magnesium, Solu-Medrol, reassess <BRODIE Mccarthy - Last Filed: 10/31/20 15:46> Medical Records Attestation: I reviewed the patient's medical records. <BRODIE Mccarthy - Last Filed: 10/31/20 15:46> Lab Data Attestation: I reviewed the patient's lab results. <BRODIE Mccarthy - Last Filed: 10/31/20 15:46> Result diagrams: : 10/31/20 10:19 10/31/20 10:19 <BRODIE Mccarthy - Last Filed: 10/31/20 15:46> Labs: Lab Results 10/31/20 10/31/20 10/31/20 Range/Units 10:19 10:19 10:19 WBC 7.8 (4.8-10.8) X10*3/uL RBC 3.82 L (4.20-5.50) X10*6/uL Hgb 13.4 (12.0-16.0) g/dl Hct 40.5 (37-47) % MCV 106.0 H (80-98) fL MCH 35.1 H (27.0-33.0) pg MCHC 33.1 (31.0-35.0) g/dl RDW 14.6 (11.0-16.0) % Plt Count 190 D (160-400) X10*3/uL MPV 10.9 (9.4-12.3) fL Immature Gran % (Auto) 0.5 H (0.0-0.4) % Neut % (Auto) 75.6 H (45-73) % Lymph % (Auto) 12.4 L (20-40) % Mcintosh % (Auto) 7.3 (2-11) % Eos % (Auto) 3.7 (0-4) % Baso % (Auto) 0.5 (0-2) % Lymph # (Auto) 1.0 L (1.2-4.9) X10*3/uL Mcintosh # (Auto) 0.6 (0.1-1.2) X10*3/uL Eos # (Auto) 0.3 (0.0-0.4) X10*3/uL Baso # (Auto) 0.0 (0.0-0.2) X10*3/uL Abs Immat Gran (auto) 0.04 H (0.00-0.03) X10*3/uL Absolute Neuts (auto) 5.9 (2.0-8.3) X10*3/uL Absolute Nucleated RBC 0.000 (0.0-0.012) X10*3/uL Nucleated RBC % (auto) 0.0 (0.0-0.2) /100WBC PT (9.9-13.0) SEC INR (0.9-1.1) APTT (24.1-38.0) SEC Sodium 140 (135-145) mmol/L Potassium 4.4 (3.3-5.1) mmol/L Chloride 101 (96-108) mmol/L Carbon Dioxide 28 (22-29) mmol/L Anion Gap 15 (12-20) BUN 14 (9-16) mg/dL Creatinine 0.97 (0.5-1.4) mg/dL Estim Creat Clear Calc 44.5 Estimated GFR 56 Random Glucose 81 (60-115) mg/dL Lactic Acid 1.0 (0.5-2.0) mmol/L Calcium 9.2 (8.4-10.2) mg/dL Magnesium 1.6 (1.6-2.6) mg/dL Total Bilirubin 1.4 H (0.0-1.0) mg/dL Direct Bilirubin 0.5 (0.0-0.5) mg/dL AST 23 (5-31) U/L ALT 14 (0-31) U/L Alkaline Phosphatase 78 D (39-117) U/L Troponin I High Sens (<3.5-17.0) ng/L B-Natriuretic Peptide (<100) pg/mL Total Protein 7.3 (6.5-8.0) g/dL Albumin 4.1 (3.5-5.0) g/dL Coronavirus (PCR) (Negative) Influenza Type A (PCR) (Negative) Influenza Type B (PCR) (Negative) RSV RNA Qual (PCR) (Negative) 10/31/20 10/31/20 10/31/20 Range/Units 10:19 10:45 10:53 WBC (4.8-10.8) X10*3/uL RBC (4.20-5.50) X10*6/uL Hgb (12.0-16.0) g/dl Hct (37-47) % MCV (80-98) fL MCH (27.0-33.0) pg MCHC (31.0-35.0) g/dl RDW (11.0-16.0) % Plt Count (160-400) X10*3/uL MPV (9.4-12.3) fL Immature Gran % (Auto) (0.0-0.4) % Neut % (Auto) (45-73) % Lymph % (Auto) (20-40) % Mcintosh % (Auto) (2-11) % Eos % (Auto) (0-4) % Baso % (Auto) (0-2) % Lymph # (Auto) (1.2-4.9) X10*3/uL Mcintosh # (Auto) (0.1-1.2) X10*3/uL Eos # (Auto) (0.0-0.4) X10*3/uL Baso # (Auto) (0.0-0.2) X10*3/uL Abs Immat Gran (auto) (0.00-0.03) X10*3/uL Absolute Neuts (auto) (2.0-8.3) X10*3/uL Absolute Nucleated RBC (0.0-0.012) X10*3/uL Nucleated RBC % (auto) (0.0-0.2) /100WBC PT 33.3 H (9.9-13.0) SEC INR 2.9 H (0.9-1.1) APTT 47.6 H (24.1-38.0) SEC Sodium (135-145) mmol/L Potassium (3.3-5.1) mmol/L Chloride (96-108) mmol/L Carbon Dioxide (22-29) mmol/L Anion Gap (12-20) BUN (9-16) mg/dL Creatinine (0.5-1.4) mg/dL Estim Creat Clear Calc Estimated GFR Random Glucose (60-115) mg/dL Lactic Acid (0.5-2.0) mmol/L Calcium (8.4-10.2) mg/dL Magnesium (1.6-2.6) mg/dL Total Bilirubin (0.0-1.0) mg/dL Direct Bilirubin (0.0-0.5) mg/dL AST (5-31) U/L ALT (0-31) U/L Alkaline Phosphatase (39-117) U/L Troponin I High Sens 10.2 (<3.5-17.0) ng/L B-Natriuretic Peptide 50 (<100) pg/mL Total Protein (6.5-8.0) g/dL Albumin (3.5-5.0) g/dL Coronavirus (PCR) NEGATIVE (Negative) Influenza Type A (PCR) NEGATIVE (Negative) Influenza Type B (PCR) NEGATIVE (Negative) RSV RNA Qual (PCR) NEGATIVE (Negative) 10/31/20 Range/Units 13:07 WBC (4.8-10.8) X10*3/uL RBC (4.20-5.50) X10*6/uL Hgb (12.0-16.0) g/dl Hct (37-47) % MCV (80-98) fL MCH (27.0-33.0) pg MCHC (31.0-35.0) g/dl RDW (11.0-16.0) % Plt Count (160-400) X10*3/uL MPV (9.4-12.3) fL Immature Gran % (Auto) (0.0-0.4) % Neut % (Auto) (45-73) % Lymph % (Auto) (20-40) % Mcintosh % (Auto) (2-11) % Eos % (Auto) (0-4) % Baso % (Auto) (0-2) % Lymph # (Auto) (1.2-4.9) X10*3/uL Mcintosh # (Auto) (0.1-1.2) X10*3/uL Eos # (Auto) (0.0-0.4) X10*3/uL Baso # (Auto) (0.0-0.2) X10*3/uL Abs Immat Gran (auto) (0.00-0.03) X10*3/uL Absolute Neuts (auto) (2.0-8.3) X10*3/uL Absolute Nucleated RBC (0.0-0.012) X10*3/uL Nucleated RBC % (auto) (0.0-0.2) /100WBC PT (9.9-13.0) SEC INR (0.9-1.1) APTT (24.1-38.0) SEC Sodium (135-145) mmol/L Potassium (3.3-5.1) mmol/L Chloride (96-108) mmol/L Carbon Dioxide (22-29) mmol/L Anion Gap (12-20) BUN (9-16) mg/dL Creatinine (0.5-1.4) mg/dL Estim Creat Clear Calc Estimated GFR Random Glucose (60-115) mg/dL Lactic Acid (0.5-2.0) mmol/L Calcium (8.4-10.2) mg/dL Magnesium (1.6-2.6) mg/dL Total Bilirubin (0.0-1.0) mg/dL Direct Bilirubin (0.0-0.5) mg/dL AST (5-31) U/L ALT (0-31) U/L Alkaline Phosphatase (39-117) U/L Troponin I High Sens 9.0 (<3.5-17.0) ng/L B-Natriuretic Peptide (<100) pg/mL Total Protein (6.5-8.0) g/dL Albumin (3.5-5.0) g/dL Coronavirus (PCR) (Negative) Influenza Type A (PCR) (Negative) Influenza Type B (PCR) (Negative) RSV RNA Qual (PCR) (Negative) <BRODIE Mccarthy - Last Filed: 10/31/20 15:46> Lab Results 10/31/20 10/31/20 10/31/20 Range/Units 10:19 10:19 10:19 WBC 7.8 (4.8-10.8) X10*3/uL RBC 3.82 L (4.20-5.50) X10*6/uL Hgb 13.4 (12.0-16.0) g/dl Hct 40.5 (37-47) % MCV 106.0 H (80-98) fL MCH 35.1 H (27.0-33.0) pg MCHC 33.1 (31.0-35.0) g/dl RDW 14.6 (11.0-16.0) % Plt Count 190 D (160-400) X10*3/uL MPV 10.9 (9.4-12.3) fL Immature Gran % (Auto) 0.5 H (0.0-0.4) % Neut % (Auto) 75.6 H (45-73) % Lymph % (Auto) 12.4 L (20-40) % Mcintosh % (Auto) 7.3 (2-11) % Eos % (Auto) 3.7 (0-4) % Baso % (Auto) 0.5 (0-2) % Lymph # (Auto) 1.0 L (1.2-4.9) X10*3/uL Mcintosh # (Auto) 0.6 (0.1-1.2) X10*3/uL Eos # (Auto) 0.3 (0.0-0.4) X10*3/uL Baso # (Auto) 0.0 (0.0-0.2) X10*3/uL Abs Immat Gran (auto) 0.04 H (0.00-0.03) X10*3/uL Absolute Neuts (auto) 5.9 (2.0-8.3) X10*3/uL Absolute Nucleated RBC 0.000 (0.0-0.012) X10*3/uL Nucleated RBC % (auto) 0.0 (0.0-0.2) /100WBC PT (9.9-13.0) SEC INR (0.9-1.1) APTT (24.1-38.0) SEC Sodium 140 (135-145) mmol/L Potassium 4.4 (3.3-5.1) mmol/L Chloride 101 (96-108) mmol/L Carbon Dioxide 28 (22-29) mmol/L Anion Gap 15 (12-20) BUN 14 (9-16) mg/dL Creatinine 0.97 (0.5-1.4) mg/dL Estim Creat Clear Calc 44.5 Estimated GFR 56 Random Glucose 81 (60-115) mg/dL Lactic Acid 1.0 (0.5-2.0) mmol/L Calcium 9.2 (8.4-10.2) mg/dL Magnesium 1.6 (1.6-2.6) mg/dL Total Bilirubin 1.4 H (0.0-1.0) mg/dL Direct Bilirubin 0.5 (0.0-0.5) mg/dL AST 23 (5-31) U/L ALT 14 (0-31) U/L Alkaline Phosphatase 78 D (39-117) U/L Troponin I High Sens (<3.5-17.0) ng/L B-Natriuretic Peptide (<100) pg/mL Total Protein 7.3 (6.5-8.0) g/dL Albumin 4.1 (3.5-5.0) g/dL Coronavirus (PCR) (Negative) Influenza Type A (PCR) (Negative) Influenza Type B (PCR) (Negative) RSV RNA Qual (PCR) (Negative) 10/31/20 10/31/20 10/31/20 Range/Units 10:19 10:45 10:53 WBC (4.8-10.8) X10*3/uL RBC (4.20-5.50) X10*6/uL Hgb (12.0-16.0) g/dl Hct (37-47) % MCV (80-98) fL MCH (27.0-33.0) pg MCHC (31.0-35.0) g/dl RDW (11.0-16.0) % Plt Count (160-400) X10*3/uL MPV (9.4-12.3) fL Immature Gran % (Auto) (0.0-0.4) % Neut % (Auto) (45-73) % Lymph % (Auto) (20-40) % Mcintosh % (Auto) (2-11) % Eos % (Auto) (0-4) % Baso % (Auto) (0-2) % Lymph # (Auto) (1.2-4.9) X10*3/uL Mcintosh # (Auto) (0.1-1.2) X10*3/uL Eos # (Auto) (0.0-0.4) X10*3/uL Baso # (Auto) (0.0-0.2) X10*3/uL Abs Immat Gran (auto) (0.00-0.03) X10*3/uL Absolute Neuts (auto) (2.0-8.3) X10*3/uL Absolute Nucleated RBC (0.0-0.012) X10*3/uL Nucleated RBC % (auto) (0.0-0.2) /100WBC PT 33.3 H (9.9-13.0) SEC INR 2.9 H (0.9-1.1) APTT 47.6 H (24.1-38.0) SEC Sodium (135-145) mmol/L Potassium (3.3-5.1) mmol/L Chloride (96-108) mmol/L Carbon Dioxide (22-29) mmol/L Anion Gap (12-20) BUN (9-16) mg/dL Creatinine (0.5-1.4) mg/dL Estim Creat Clear Calc Estimated GFR Random Glucose (60-115) mg/dL Lactic Acid (0.5-2.0) mmol/L Calcium (8.4-10.2) mg/dL Magnesium (1.6-2.6) mg/dL Total Bilirubin (0.0-1.0) mg/dL Direct Bilirubin (0.0-0.5) mg/dL AST (5-31) U/L ALT (0-31) U/L Alkaline Phosphatase (39-117) U/L Troponin I High Sens 10.2 (<3.5-17.0) ng/L B-Natriuretic Peptide 50 (<100) pg/mL Total Protein (6.5-8.0) g/dL Albumin (3.5-5.0) g/dL Coronavirus (PCR) NEGATIVE (Negative) Influenza Type A (PCR) NEGATIVE (Negative) Influenza Type B (PCR) NEGATIVE (Negative) RSV RNA Qual (PCR) NEGATIVE (Negative) 10/31/20 Range/Units 13:07 WBC (4.8-10.8) X10*3/uL RBC (4.20-5.50) X10*6/uL Hgb (12.0-16.0) g/dl Hct (37-47) % MCV (80-98) fL MCH (27.0-33.0) pg MCHC (31.0-35.0) g/dl RDW (11.0-16.0) % Plt Count (160-400) X10*3/uL MPV (9.4-12.3) fL Immature Gran % (Auto) (0.0-0.4) % Neut % (Auto) (45-73) % Lymph % (Auto) (20-40) % Mcintosh % (Auto) (2-11) % Eos % (Auto) (0-4) % Baso % (Auto) (0-2) % Lymph # (Auto) (1.2-4.9) X10*3/uL Mcintosh # (Auto) (0.1-1.2) X10*3/uL Eos # (Auto) (0.0-0.4) X10*3/uL Baso # (Auto) (0.0-0.2) X10*3/uL Abs Immat Gran (auto) (0.00-0.03) X10*3/uL Absolute Neuts (auto) (2.0-8.3) X10*3/uL Absolute Nucleated RBC (0.0-0.012) X10*3/uL Nucleated RBC % (auto) (0.0-0.2) /100WBC PT (9.9-13.0) SEC INR (0.9-1.1) APTT (24.1-38.0) SEC Sodium (135-145) mmol/L Potassium (3.3-5.1) mmol/L Chloride (96-108) mmol/L Carbon Dioxide (22-29) mmol/L Anion Gap (12-20) BUN (9-16) mg/dL Creatinine (0.5-1.4) mg/dL Estim Creat Clear Calc Estimated GFR Random Glucose (60-115) mg/dL Lactic Acid (0.5-2.0) mmol/L Calcium (8.4-10.2) mg/dL Magnesium (1.6-2.6) mg/dL Total Bilirubin (0.0-1.0) mg/dL Direct Bilirubin (0.0-0.5) mg/dL AST (5-31) U/L ALT (0-31) U/L Alkaline Phosphatase (39-117) U/L Troponin I High Sens 9.0 (<3.5-17.0) ng/L B-Natriuretic Peptide (<100) pg/mL Total Protein (6.5-8.0) g/dL Albumin (3.5-5.0) g/dL Coronavirus (PCR) (Negative) Influenza Type A (PCR) (Negative) Influenza Type B (PCR) (Negative) RSV RNA Qual (PCR) (Negative) <Josue Burch MD - Last Filed: 10/31/20 15:34> Discharge Plan Discharge Clinical Impression: COPD (chronic obstructive pulmonary disease), Dyspnea <BRODIE Mccarthy - Last Filed: 10/31/20 15:46> Patient Disposition: Home, Self-Care <BRODIE Mccarthy - Last Filed: 10/31/20 15:46> Instructions: COPD (Chronic Obstructive Pulmonary Disease) (ED) <BRODIE Mccarthy - Last Filed: 10/31/20 15:46> Additional Instructions: You have a 8 mm new nodule seen in her lung which is concerning for cancer You also are having likely a COPD exacerbation, continue to use her neb machine in all your home prescribed medication Start taking increased dose of prednisone as prescribed for the next 8 days, you need to follow-up with her artist relationship manager If her symptoms persist or worsen, shortness of breath becomes unbearable, worsening, her oxygen is low, have chest pain or fever please return to the ED immediately <BRODIE Mccarthy - Last Filed: 10/31/20 15:46> Prescriptions: New prednisone 10 mg tablet 10 mg PO DAILY Qty: 26 RF: 0 No Action formoterol fumarate [Perforomist] 20 mcg/2 mL solution for nebulization 2 ml inhalation BID Qty: 60 RF: 11 cholecalciferol (vitamin D3) 50 mcg (2,000 unit) capsule 50 mcg PO DAILY RF: 0 alendronate 70 mg tablet 70 mg PO QWEEK RF: 0 guaifenesin [Mucus Relief ER] 600 mg tablet extended release 12hr 600 mg PO Q12H PRNRF: 0 prednisone 5 mg tablet 5 mg PO DAILY Qty: 30 RF: 0 albuterol sulfate [Ventolin HFA] 90 mcg/actuation HFA aerosol inhaler 2 puff inhalation Q4-6H PRN (Reason: shortness of breath or wheezing) Qty: 18 RF: 2 azithromycin 250 mg tablet 250 mg PO Q OTHER DAY Qty: 15 RF: 3 ipratropium-albuterol 0.5 mg-3 mg(2.5 mg base)/3 mL solution for nebulization 3 ml inhalation Q6H PRN (Reason: COPD) 30 Days Qty: 270 RF: 3 warfarin 3 mg tablet 3 mg PO Q OTHER DAY RF: 0 celecoxib 200 mg capsule 200 mg PO DAILY PRNRF: 0 prednisone 5 mg tablet 5 mg PO DAILY 90 Days Qty: 90 RF: 3 azithromycin 250 mg tablet 250 mg PO 3XW 90 Days Qty: 39 RF: 3 azithromycin 250 mg tablet 250 mg PO DAILY 90 Days Qty: 90 RF: 3 COVID-19 vacc,mRNA([employer])(PF) 30 mcg/0.3 mL suspension for reconstitution 0.3 ml IM Q3W RF: 0 <BRODIE Mccarthy - Last Filed: 10/31/20 15:46> Referrals: Brie Lopez MD [Physician] - 2 days <BRODIE Mccarthy - Last Filed: 10/31/20 15:46>
[2020-10-31] MEDS: Albuterol/Iprat 2.5/0.5MG 3 ML AMPUL.NEB INHALE ×2 (10:13→13:13)
[2020-10-31 10:16] VITALS: PULSE 82; O2SAT 98
[2020-10-31 10:24] LABS: MANUAL DIFF FLAG NO
[2020-10-31 10:28] LABS: Basophils Percent Auto 0.5 % (0-2); Eosinophils Absolute Auto 0.3 X10*3/uL (0.0-0.4); Eosinophils Percent Auto 3.7 % (0-4); Hematocrit 40.5 % (37-47); Hemoglobin 13.4 g/dl (12.0-16.0); Imm Gran Abs Auto 0.04 X10*3/uL (0.00-0.03); Imm Gran Pct Auto 0.5 % (0.0-0.4); Lymphocytes Percent Auto 12.4 % (20-40); Mean Corpuscular HGB Conc 33.1 g/dl (31.0-35.0); Mean Corpuscular Hemoglobin 35.1 pg (27.0-33.0); Mean Platelet Volume 10.9 fL (9.4-12.3); Monocytes Absolute Auto 0.6 X10*3/uL (0.1-1.2); Monocytes Percent Auto 7.3 % (2-11); Neutrophils Absolute Auto 5.9 X10*3/uL (2.0-8.3); Neutrophils Percent Auto 75.6 % (45-73); Platelet Count 190 X10*3/uL (160-400); Red Blood Count 3.82 X10*6/uL (4.20-5.50); Red Cell Distribution Width 14.6 % (11.0-16.0); White Blood Count 7.8 X10*3/uL (4.8-10.8)
[2020-10-31 10:50] LABS: Alanine Aminotransferase 14 U/L (0-31); Albumin Level 4.1 g/dL (3.5-5.0); Alkaline Phosphatase 78 U/L (39-117); Anion Gap 15 (12-20); Aspartate Amino Transferase 23 U/L (5-31); Bilirubin Direct 0.5 mg/dL (0.0-0.5); Bilirubin Total 1.4 mg/dL (0.0-1.0); Blood Urea Nitrogen 14 mg/dL (9-16); Calcium 9.2 mg/dL (8.4-10.2); Carbon Dioxide 28 mmol/L (22-29); Chloride 101 mmol/L (96-108); Creatinine Clr Calc Pharmacy 44.5; Estimated Glomerular Filt Rate 56; Glucose Random 81 mg/dL (60-115); Magnesium 1.6 mg/dL (1.6-2.6); Potassium 4.4 mmol/L (3.3-5.1); Sodium 140 mmol/L (135-145); Total Protein 7.3 g/dL (6.5-8.0)
[2020-10-31 10:51] LABS: B Type Natriuretic Peptide 50 pg/mL (<100); Troponin-I High Sensitivity 10.2 ng/L (<3.5-17.0)
[2020-10-31] MEDS: Magnesium Sulfate/H2O 2 GM/50 ML PIGGYBACK IV (11:01)
[2020-10-31] MEDS: methylPREDNISolone Sod Succ 125 MG/2 ML VIAL IVPUSH (11:01)
[2020-10-31 11:05] LABS: INTERNATIONAL NORM RATIO 2.9 (0.9-1.1); Prothrombin Time 33.3 SEC (9.9-13.0)
[2020-10-31 11:07] LABS: Partial Thromboplastin Time 47.6 SEC (24.1-38.0)
[2020-10-31 11:43] LABS: Influenza A PCR NEGATIVE (Negative); Influenza B PCR NEGATIVE (Negative); Resp Syncy Virus RNA Qual PCR NEGATIVE (Negative); SARS COV2 PCR INHOUSE NEGATIVE (Negative)
[2020-10-31] MEDS: iohexoL 350 MG/ML 100 ML INFUS..BTL IV (12:59)
[2020-10-31 13:16] VITALS: PULSE 81; O2SAT 95
[2020-10-31 14:00] VITALS: O2SAT 97
== END 2020-10-31 16:49 | disposition home or self-care (01) ==
PROVIDERS: Physician Assistant; Emergency Provider Emergency Medicine; PCP Internal Medicine
DX: J44.9 Chronic obstructive pulmonary disease, unspecified (principal); R06.02 Shortness of breath; R91.1 Solitary pulmonary nodule; Z20.822 Contact with and (suspected) exposure to COVID-19; Z86.711 Personal history of pulmonary embolism; Z85.3 Personal history of malignant neoplasm of breast; Z85.118 Personal history of other malignant neoplasm of bronchus and lung
CPT/HCPCS: 0241U; 36415; 71275; 80048; 80076; 83605; 83735; 83880; 84484; 85025; 85610; 85730; 87040; 87147; 87205; 93005; 94640; 96365; 96366; 96374; 96375; 99284; J2930; J3475; Q9967

== ENCOUNTER 2020-11-04 12:19 | Inpatient (IN) | payer MEDICARE, SELFPAY ==
--- NOTE | ~2020-11-04 | XR_ITS ---
EXAMINATION: XR CHEST CLINICAL INFORMATION: Shortness of breath COMPARISON: October 31, 2020 and May 23, 2020 TECHNIQUE: AP portable view of the chest was obtained. FINDINGS: There is scoliosis of the thoracic spine convex right. There is a region of scarring seen within the left lower lung. Patient status post previous left lung surgery with suture lines evident. There is no evidence of acute parenchymal disease, pneumothorax, or pleural effusion. Heart normal size. No evidence of pulmonary edema. Old right rib fractures noted. XR/XR chest 1V IMPRESSION: No acute disease.
[2020-11-04 12:46] VITALS: BP 150/82; PULSE 81; RESP 20; TEMP 36.6; O2SAT 90; BMI 28.3
[2020-11-04 14:46] VITALS: BP 191/98; PULSE 83; RESP 16; O2SAT 89
--- NOTE | 2020-11-04 14:53 | ED.SOB ---
HPI - SOB/Dyspnea General Chief Complaint: Dyspnea Stated Complaint: SOB Time Seen by Provider: 11/04/20 14:48 Source: patient Mode of arrival: wheelchair Limitations: no limitations History of Present Illness HPI Narrative: Pleasant 75-year-old female with past medical history that is significant for COPD currently maintained on maintenance 5 mg prednisone and right now she is taking 10 due to recent ED visit for shortness of breath, right upper lung cancer status post resection in July, history of pulmonary embolism x2 she is maintained on Coumadin, she is chronically on home O2 p.r.n. in addition to other history as noted below she was seen here on the 31 of October for shortness of breath she subsequently underwent extensive testing including PE study which was negative she was sent home with increased prednisone dose however she reports she has been feeling worse with worsening shortness of breath and productive cough with yellow phlegm. There is no fever. Denies any chest pain. Denies any abdominal pain nausea or vomiting. In addition to this she does report she has had some mild left hip pain which she has had since fall of last year after a fall and a hip replacement but no recent fall or injury. She denies any back pain. She denies any GI symptoms. Patient upon arrival having productive cough with SpO2 of 90% on room air. MD elicited complaint: shortness of breath and cough Exacerbating factors: coughing and other (Walking) Relieving factors: nothing Known history of: COPD Associated symptoms: cough and wheezing Treatment prior to arrival: oxygen, bronchodilator and other (Prednisone) Related Data Home oxygen amount: other (P.r.n. at night) Home Medications Medication Instructions Recorded Confirmed warfarin 3 mg tablet 3 mg PO DAILY 01/23/20 11/04/20 cholecalciferol (vitamin D3) 50 50 mcg PO DAILY 02/12/20 11/04/20 mcg (2,000 unit) capsule guaifenesin 600 mg tablet, 600 mg PO Q12H PRN 02/12/20 11/04/20 extended release 12 hr (Mucus Relief ER) Previous Rx's Medication Instructions Recorded formoterol fumarate 20 mcg/2 mL 2 ml INHALATION BID #60 ml 02/06/20 solution for nebulization (Perforomist) prednisone 5 mg tablet 5 mg PO DAILY #30 tab 06/07/20 Ventolin HFA 90 mcg/actuation 2 puff INHALATION Q4-6H PRN #18 g 06/08/20 aerosol inhaler (albuterol sulfate) NS azithromycin 250 mg tablet 250 mg PO DAILY 90 Days #90 tab 10/18/20 ipratropium 0.5 mg-albuterol 3 mg 3 ml INHALATION Q6H PRN 30 Days 10/25/20 (2.5 mg base)/3 mL nebulization #270 ml soln prednisone 10 mg tablet 10 mg PO DAILY #26 tab 10/31/20 Allergies Allergy/AdvReac Type Severity Reaction Status Date / Time No Known Allergies Allergy Verified 10/18/20 13:50 Review of Systems Review of Systems: Constitutional: No Weight loss, No Fever, No Chills, No Night Sweats, No Fatigue, No Malaise ENT/Mouth: No Hearing loss, No Ear Pain, No Nasal Congestion, No Sinus Pain, No Hoarseness, No sore throat, No Rhinorrhea, No Swallowing Difficulty Eyes: No Eye Pain, No Swelling, No Redness, No Foreign Body, No Discharge, No Vision Changes Cardiovascular: No Chest Pain, No SOB, No Dyspnea on Exertion, No Orthopnea, No Edema, No Palpitations Respiratory: + Cough, + Sputum, No Wheezing, No Dyspnea Gastrointestinal: No Nausea, No Vomiting, No Diarrhea, No Constipation, No abdominal Pain, No Hematochezia, No Melena Genitourinary: no irregular bleeding, No Dysuria, No Urinary Frequency, No Hematuria, No Urinary Incontinence, No Urgency, No Flank Pain, No Urinary Flow Changes, No Hesitancy Musculoskeletal: No joint pain, No Myalgias, No Joint Swelling Skin: No Skin Lesions, No rash Neuro: No Weakness, No Numbness, No Paresthesias, No Loss of Consciousness, No Dizziness, No Headache Psych: No Social Issues Heme/Lymph: No Bruising, No Bleeding,No Lymphadenopathy Endocrine: No Polyuria, No Polydipsia, No Temperature Intolerance [facility] Past Medical History Medical History Cancer of upper lobe of left lung (~2020) Cancer of upper lobe of right lung (~2019) Chronic bronchitis Closed intertrochanteric fracture with routine healing (~2019) COPD (chronic obstructive pulmonary disease) Current use of anticoagulant therapy (~2011) History of left breast cancer (~2008) History of pulmonary embolism (~2011) Osteoporosis (~2009) Tubular adenoma of colon (~2014) Surgical History (Updated 11/04/20 @ 09:58 by Concepcion Carranza PA-C) History of appendectomy (~09/2012) History of colonoscopy (~07/2014) History of hip surgery (~11/2019) History of left breast biopsy (~03/2009) History of lumpectomy of left breast (~04/2009) History of lung surgery (~07/2019) History of lung surgery (~05/2020) History of tonsillectomy History of tubal ligation Social History Social History (Updated 11/04/20 @ 08:53 by Concepcion Carranza PA-C) Alcohol intake: never Patient Tobacco Use Status: Former Tobacco user Years Smoked: 35pyh - quit 1997 Advance Directives: No Advance Directives Information Provided: Yes Physical Exam Vital Signs: Vital Signs: Last Vital Signs Temp 97.9 F 11/04/20 12:46 Pulse 72 11/04/20 15:42 Resp 16 11/04/20 14:46 BP 191/98 H 11/04/20 14:46 Pulse Ox 89 L 11/04/20 14:46 Body Mass Index 28.3 Const: General: cooperative and healthy appearing; No acute distress or intoxicated appearing Nutritional Appearance: average body habitus Orientation/consciousness: patient oriented x3 HENMT: Head: Yes normal to inspection Ears: hearing grossly normal bilaterally Eyes: General: appearance normal, both eyes and all related structures Visual Sanchez: normal visual sanchez by confrontation Neck: Neck: Yes normal visual inspection, No positive Brudzinski's sign, No positive Kernig's sign and No tender Thyroid: Thyroid normal Chest: Chest palpation & inspection: normal inspection of the chest Resp: Effort & Inspection: audible wheezes, Actively coughing and labored (Slightly) Auscultation: wheezes Cardio: Jugular venous distension: no JVD Rate: regular rate Rhythm: regular rhythm Heart sounds: S1 normal heart sound present and S2 normal heart sound present GI: Inspection: Yes normal to inspection Percussion: Yes normal to percussion Auscultation: normal bowel sounds : General: Yes no CVA tenderness Back/Spine/Pelvis: Back: no CVA tenderness Skin: General skin exam: no rashes or lesions noted Neuro: General: patient oriented x3 Extrem: General: Yes normal to inspection Course Reevaluation(s) Reevaluation #1: 1450 Interview 75-year-old female with extensive pulmonary history as noted above rib presenting with complaint of shortness of breath in the setting of COPD with productive cough she is on home O2 p.r.n. she on arrival is 89% on room air with productive cough and coarse lung sounds. She will require labs, repeat chest x-ray and will treat her with nebs, IV steroids and likely require admission for COPD exacerbation. Reevaluation #2: Marginal improvement after IV Solu-Medrol, 5 mg neb even being on the phone she will drop to 87% on room air failed ambulation trial she walked about 10 ft became very short of breath and 87%. Patient will be given additional neb plan for admission. Otherwise labs overall reassuring, chest x-ray negative. Consultations Consultation #1: Hospitalist for admission Dr. Sherman MDM - SOB/Dyspnea Lab Data Result diagrams: 11/04/20 15:15 11/04/20 15:15 Labs: Lab Results 11/04/20 11/04/20 11/04/20 Range/Units 15:14 15:14 15:14 WBC (4.8-10.8) X10*3/uL RBC (4.20-5.50) X10*6/uL Hgb (12.0-16.0) g/dl Hct (37-47) % MCV (80-98) fL MCH (27.0-33.0) pg MCHC (31.0-35.0) g/dl RDW (11.0-16.0) % Plt Count (160-400) X10*3/uL MPV (9.4-12.3) fL Immature Gran % (Auto) (0.0-0.4) % Neut % (Auto) (45-73) % Lymph % (Auto) (20-40) % [place] % (Auto) (2-11) % Eos % (Auto) (0-4) % Baso % (Auto) (0-2) % Lymph # (Auto) (1.2-4.9) X10*3/uL [place] # (Auto) (0.1-1.2) X10*3/uL Eos # (Auto) (0.0-0.4) X10*3/uL Baso # (Auto) (0.0-0.2) X10*3/uL Abs Immat Gran (auto) (0.00-0.03) X10*3/uL Absolute Neuts (auto) (2.0-8.3) X10*3/uL Absolute Nucleated RBC (0.0-0.012) X10*3/uL Nucleated RBC % (auto) (0.0-0.2) /100WBC PT 37.5 H (9.9-13.0) SEC INR 3.2 H (0.9-1.1) APTT 41.2 H (24.1-38.0) SEC Sodium (135-145) mmol/L Potassium (3.3-5.1) mmol/L Chloride (96-108) mmol/L Carbon Dioxide (22-29) mmol/L Anion Gap (12-20) BUN (9-16) mg/dL Creatinine (0.5-1.4) mg/dL Estim Creat Clear Calc Estimated GFR Random Glucose (60-115) mg/dL Lactic Acid 1.7 (0.5-2.0) mmol/L Calcium (8.4-10.2) mg/dL Total Bilirubin (0.0-1.0) mg/dL AST (5-31) U/L ALT (0-31) U/L Alkaline Phosphatase (39-117) U/L Troponin I High Sens 9.5 (<3.5-17.0) ng/L B-Natriuretic Peptide (<100) pg/mL Total Protein (6.5-8.0) g/dL Albumin (3.5-5.0) g/dL Coronavirus (PCR) (Negative) Influenza Type A (PCR) (Negative) Influenza Type B (PCR) (Negative) RSV RNA Qual (PCR) (Negative) 11/04/20 11/04/20 11/04/20 Range/Units 15:15 15:15 15:15 WBC (4.8-10.8) X10*3/uL RBC (4.20-5.50) X10*6/uL Hgb (12.0-16.0) g/dl Hct (37-47) % MCV (80-98) fL MCH (27.0-33.0) pg MCHC (31.0-35.0) g/dl RDW (11.0-16.0) % Plt Count (160-400) X10*3/uL MPV (9.4-12.3) fL Immature Gran % (Auto) (0.0-0.4) % Neut % (Auto) (45-73) % Lymph % (Auto) (20-40) % [place] % (Auto) (2-11) % Eos % (Auto) (0-4) % Baso % (Auto) (0-2) % Lymph # (Auto) (1.2-4.9) X10*3/uL [place] # (Auto) (0.1-1.2) X10*3/uL Eos # (Auto) (0.0-0.4) X10*3/uL Baso # (Auto) (0.0-0.2) X10*3/uL Abs Immat Gran (auto) (0.00-0.03) X10*3/uL Absolute Neuts (auto) (2.0-8.3) X10*3/uL Absolute Nucleated RBC (0.0-0.012) X10*3/uL Nucleated RBC % (auto) (0.0-0.2) /100WBC PT (9.9-13.0) SEC INR (0.9-1.1) APTT (24.1-38.0) SEC Sodium 142 (135-145) mmol/L Potassium 4.9 (3.3-5.1) mmol/L Chloride 105 (96-108) mmol/L Carbon Dioxide 25 (22-29) mmol/L Anion Gap 17 (12-20) BUN 18 H (9-16) mg/dL Creatinine 1.03 (0.5-1.4) mg/dL Estim Creat Clear Calc 42.0 Estimated GFR 52 Random Glucose 112 D (60-115) mg/dL Lactic Acid (0.5-2.0) mmol/L Calcium 9.6 (8.4-10.2) mg/dL Total Bilirubin 1.4 H (0.0-1.0) mg/dL AST 23 (5-31) U/L ALT 17 (0-31) U/L Alkaline Phosphatase 60 D (39-117) U/L Troponin I High Sens (<3.5-17.0) ng/L B-Natriuretic Peptide 115 H (<100) pg/mL Total Protein 7.0 (6.5-8.0) g/dL Albumin 4.1 (3.5-5.0) g/dL Coronavirus (PCR) NEGATIVE (Negative) Influenza Type A (PCR) NEGATIVE (Negative) Influenza Type B (PCR) NEGATIVE (Negative) RSV RNA Qual (PCR) NEGATIVE (Negative) 11/04/20 Range/Units 15:15 WBC 10.7 (4.8-10.8) X10*3/uL RBC 3.26 L (4.20-5.50) X10*6/uL Hgb 11.5 L (12.0-16.0) g/dl Hct 35.3 L (37-47) % MCV 108.3 H (80-98) fL MCH 35.3 H (27.0-33.0) pg MCHC 32.6 (31.0-35.0) g/dl RDW 15.1 (11.0-16.0) % Plt Count 221 (160-400) X10*3/uL MPV 10.8 (9.4-12.3) fL Immature Gran % (Auto) 3.9 H (0.0-0.4) % Neut % (Auto) 85.0 H (45-73) % Lymph % (Auto) 5.4 L (20-40) % [place] % (Auto) 5.4 (2-11) % Eos % (Auto) 0.2 (0-4) % Baso % (Auto) 0.1 (0-2) % Lymph # (Auto) 0.6 L (1.2-4.9) X10*3/uL [place] # (Auto) 0.6 (0.1-1.2) X10*3/uL Eos # (Auto) 0.0 (0.0-0.4) X10*3/uL Baso # (Auto) 0.0 (0.0-0.2) X10*3/uL Abs Immat Gran (auto) 0.42 H (0.00-0.03) X10*3/uL Absolute Neuts (auto) 9.1 H (2.0-8.3) X10*3/uL Absolute Nucleated RBC 0.030 H (0.0-0.012) X10*3/uL Nucleated RBC % (auto) 0.3 H (0.0-0.2) /100WBC PT (9.9-13.0) SEC INR (0.9-1.1) APTT (24.1-38.0) SEC Sodium (135-145) mmol/L Potassium (3.3-5.1) mmol/L Chloride (96-108) mmol/L Carbon Dioxide (22-29) mmol/L Anion Gap (12-20) BUN (9-16) mg/dL Creatinine (0.5-1.4) mg/dL Estim Creat Clear Calc Estimated GFR Random Glucose (60-115) mg/dL Lactic Acid (0.5-2.0) mmol/L Calcium (8.4-10.2) mg/dL Total Bilirubin (0.0-1.0) mg/dL AST (5-31) U/L ALT (0-31) U/L Alkaline Phosphatase (39-117) U/L Troponin I High Sens (<3.5-17.0) ng/L B-Natriuretic Peptide (<100) pg/mL Total Protein (6.5-8.0) g/dL Albumin (3.5-5.0) g/dL Coronavirus (PCR) (Negative) Influenza Type A (PCR) (Negative) Influenza Type B (PCR) (Negative) RSV RNA Qual (PCR) (Negative) Discharge Plan Discharge Clinical Impression: Acute exacerbation of chronic obstructive pulmonary disease, Chronic bronchitis with COPD (chronic obstructive pulmonary disease) Patient Disposition: Admitted As Inpatient Prescriptions: No Action formoterol fumarate [Perforomist] 20 mcg/2 mL solution for nebulization 2 ml inhalation BID Qty: 60 RF: 11 cholecalciferol (vitamin D3) 50 mcg (2,000 unit) capsule 50 mcg PO DAILY RF: 0 guaifenesin [Mucus Relief ER] 600 mg tablet extended release 12hr 600 mg PO Q12H PRN (Reason: Congestion) RF: 0 prednisone 5 mg tablet 5 mg PO DAILY Qty: 30 RF: 0 albuterol sulfate [Ventolin HFA] 90 mcg/actuation HFA aerosol inhaler 2 puff inhalation Q4-6H PRN (Reason: shortness of breath or wheezing) Qty: 18 RF: 2 ipratropium-albuterol 0.5 mg-3 mg(2.5 mg base)/3 mL solution for nebulization 3 ml inhalation Q6H PRN (Reason: COPD) 30 Days Qty: 270 RF: 3 prednisone 10 mg tablet 10 mg PO DAILY Qty: 26 RF: 0 warfarin 3 mg tablet 3 mg PO DAILY RF: 0 azithromycin 250 mg tablet 250 mg PO DAILY 90 Days Qty: 90 RF: 3
--- NOTE | 2020-11-04 14:58 | ECG_ITS ---
Test Reason : SOB Blood Pressure : / mmHG Vent. Rate : 070 BPM Atrial Rate : 070 BPM P-R Int : 162 ms QRS Dur : 070 ms QT Int : 416 ms P-R-T Axes : 060 -03 024 degrees QTc Int : 449 ms Normal sinus rhythm Left ventricular hypertrophy with repolarization abnormality Abnormal ECG When compared with ECG of 31-OCT-2020 10:36, Nonspecific T wave abnormality no longer evident in Anterior leads Referred By: Jose David Daley Electronically Signed By:ANAT ZEPEDA
[2020-11-04 15:20] LABS: MANUAL DIFF FLAG NO
[2020-11-04] MEDS: methylPREDNISolone Sod Succ 125 MG/2 ML VIAL IVPUSH (15:21)
[2020-11-04 15:22] LABS: Basophils Percent Auto 0.1 % (0-2); Eosinophils Percent Auto 0.2 % (0-4); Hematocrit 35.3 % (37-47); Hemoglobin 11.5 g/dl (12.0-16.0); Imm Gran Abs Auto 0.42 X10*3/uL (0.00-0.03); Imm Gran Pct Auto 3.9 % (0.0-0.4); Lymphocytes Absolute Auto 0.6 X10*3/uL (1.2-4.9); Lymphocytes Percent Auto 5.4 % (20-40); Mean Corpuscular HGB Conc 32.6 g/dl (31.0-35.0); Mean Corpuscular Hemoglobin 35.3 pg (27.0-33.0); Mean Corpuscular Volume 108.3 fL (80-98); Mean Platelet Volume 10.8 fL (9.4-12.3); Monocytes Absolute Auto 0.6 X10*3/uL (0.1-1.2); Monocytes Percent Auto 5.4 % (2-11); NRBC Pct Auto 0.3 /100WBC (0.0-0.2); Neutrophils Absolute Auto 9.1 X10*3/uL (2.0-8.3); Platelet Count 221 X10*3/uL (160-400); Red Blood Count 3.26 X10*6/uL (4.20-5.50); Red Cell Distribution Width 15.1 % (11.0-16.0); White Blood Count 10.7 X10*3/uL (4.8-10.8)
[2020-11-04] MEDS: 0.9 % Sodium Chloride 500 ML IV (15:24)
[2020-11-04] MEDS: cefTRIAXone sodium 1 GM in 0.9 % Sodium Chloride 50 ML IV (15:26)
[2020-11-04 15:30] LABS: INTERNATIONAL NORM RATIO 3.2 (0.9-1.1); Prothrombin Time 37.5 SEC (9.9-13.0)
[2020-11-04 15:33] LABS: Partial Thromboplastin Time 41.2 SEC (24.1-38.0)
[2020-11-04 15:41] LABS: Lactic Acid 1.7 mmol/L (0.5-2.0)
[2020-11-04] MEDS: Albuterol Sulfate (0.083%) 2.5 MG/3 ML VIAL.NEB 5 MG INHALE (15:41)
[2020-11-04 15:42] VITALS: PULSE 72; O2SAT 97
--- NOTE | 2020-11-04 15:43 | PHA.MEDREC ---
Pharmacy Consult ? Medication Reconciliation Pharmacy has completed the medication reconciliation. PT reports taking first dose of prednisone 20mg x 2 days (as part of taper) today. She reports she will return to prednisone 5mg daily when done with taper. She reports her warfarin dosing has been changed to 3mg every day and that she took her dose this morning.
[2020-11-04 15:47] LABS: Alanine Aminotransferase 17 U/L (0-31); Albumin Level 4.1 g/dL (3.5-5.0); Alkaline Phosphatase 60 U/L (39-117); Anion Gap 17 (12-20); Aspartate Amino Transferase 23 U/L (5-31); Bilirubin Total 1.4 mg/dL (0.0-1.0); Blood Urea Nitrogen 18 mg/dL (9-16); Calcium 9.6 mg/dL (8.4-10.2); Carbon Dioxide 25 mmol/L (22-29); Chloride 105 mmol/L (96-108); Estimated Glomerular Filt Rate 52; Glucose Random 112 mg/dL (60-115); Potassium 4.9 mmol/L (3.3-5.1); Sodium 142 mmol/L (135-145)
[2020-11-04 15:50] LABS: Troponin-I High Sensitivity 9.5 ng/L (<3.5-17.0)
[2020-11-04 15:50] LABS: B Type Natriuretic Peptide 115 pg/mL (<100)
[2020-11-04 16:25] LABS: Influenza A PCR NEGATIVE (Negative); Influenza B PCR NEGATIVE (Negative); Resp Syncy Virus RNA Qual PCR NEGATIVE (Negative); SARS COV2 PCR INHOUSE NEGATIVE (Negative)
[2020-11-04 17:14] LABS: Glucose Urine UA NEG (NEG); Leukocyte Esterase Urine 1+ (NEG); Nitrite Urine NEG (NEG); Specific Gravity - Urine 1.015 (1.005-1.025); UACC Culture Trigger YES; Urine Blood NEG (NEG); Urine Ketones NEG (NEG); Urine Protein NEG (NEG-TRACE)
[2020-11-04 17:25] LABS: Appearance Urine CLEAR; Color Urine YELLOW
[2020-11-04 17:28] LABS: UACC CULT YES
[2020-11-04 17:31] LABS: RBC Urine 0 /HPF (0)
[2020-11-04 17:32] LABS: Bacteria Urine 1+ /LPF; Squamous Epithelial Cell Urine 3+ /LPF
[2020-11-04] MEDS: Heparin Sodium,Porcine 5,000 UNIT/ML VIAL 5000 UNIT SUBCUT (17:54)
[2020-11-04] MEDS: Folic Acid 1 MG TABLET PO (17:54)
[2020-11-04] MEDS: guaiFENesin 100 MG/5 ML LIQUID PO ×2 (17:54→21:33)
[2020-11-04] MEDS: Thiamine HCL 100 MG TABLET PO (17:54)
[2020-11-04] MEDS: Albuterol/Iprat 2.5/0.5MG 3 ML AMPUL.NEB INHALE ×2 (17:58→23:51)
[2020-11-04 17:59] VITALS: PULSE 81; O2SAT 84
--- NOTE | 2020-11-04 18:22 | PC.NURSE ---
ATTEMPTED TO CALL REPORT X1
--- NOTE | 2020-11-04 18:42 | PM.IMHP ---
History of Present Illness Date of Service: 11/04/20 Chief Complaint: shortness of breath ,cough 75-year-old female who came to the hospital because of having cough and shortness of breath for few days- she has history of COPD/ lung cancer probably- status post surgery in May 2020 and also in November 2019 as per patient: she follows up with Dr. Jacques, she says that her shortness of breath was getting worse and was having difficulty talking as well as with mild adjacent she was getting short of breath so decided to go come to the hospital- recent workup including CTA 2days back negative. she has cough and phlegm yellowish. lab imaging reviewed. Review of Systems Review of Systems: patient still short of breath, speaks in short sentences. , cough denies any nausea or vomiting or abdominal pain or diarrhea or chills or weakness or numbness or any rash denies any falling down denies any rhinorrhea or otorrhea [facility] Medical History Cancer of upper lobe of left lung (~2020) Cancer of upper lobe of right lung (~2019) Chronic bronchitis Closed intertrochanteric fracture with routine healing (~2019) COPD (chronic obstructive pulmonary disease) Current use of anticoagulant therapy (~2011) History of left breast cancer (~2008) History of pulmonary embolism (~2011) Osteoporosis (~2009) Tubular adenoma of colon (~2014) Surgical History History of appendectomy (~09/2012) History of colonoscopy (~07/2014) History of hip surgery (~11/2019) History of left breast biopsy (~03/2009) History of lumpectomy of left breast (~04/2009) History of lung surgery (~07/2019) History of lung surgery (~05/2020) History of tonsillectomy History of tubal ligation Social History Household Members: Children Housing: House Alcohol intake: never Patient Tobacco Use Status: Former Tobacco user Years Smoked: 35pyh - quit 1998 Use of substances other than those prescribed or required for medical reasons: No Currently Displaying Signs/Symptoms of Drug Intoxication Withdrawal: No Have you been hit, kicked, punched, or otherwise hurt by someone within the past year? If so, by whom?: No Do you feel safe in your current relationship?: No Current Relationship Is there a partner from a previous relationship who is making you feel unsafe now?: No Are you made to feel afraid or neglected: No Advance Directives: No Advance Directives Information Provided: Yes Do you have thoughts of harming others: None Do you have a plan to hurt others: No Plan Recently lost weight without trying: No Nutrition Risks: No Nutritional Risk service: No Current occupational status: disabled Meds Allergies Allergy/AdvReac Type Severity Reaction Status Date / Time No Known Allergies Allergy Verified 10/18/20 13:50 Active Medications: Current Medications Generic Name Dose Route Start Last Admin Trade Name Freq PRN Reason Stop Dose Admin Albuterol/Ipratropium 3 ml 11/04/20 20:00 Albuterol/Iprat 2.5/0.5mg 3 Ml Ampul.Neb INHALE RQ4H [facility] Guaifenesin 5 ml 11/04/20 17:45 11/04/20 17:54 Guaifenesin 100 Mg/5 Ml Liquid PO 5 ml Q4H ANJELICA Administration Heparin Sodium (Porcine) 5,000 unit 11/04/20 18:00 11/04/20 17:54 Heparin Sodium,Porcine 5,000 Unit/Ml Vial SUBCUT 5,000 unit Q8H ANJELICA Administration Melatonin 6 mg 11/05/20 09:00 Melatonin 3 Mg Tablet PO DAILY [facility] Methylprednisolone Sodium Succinate 40 mg 11/04/20 21:00 Methylprednisolone Sod Succ 40 Mg/Ml Vial IVPUSH BID [facility] Pharmacy Consult 1 each 11/04/20 15:00 Consult Rx Perform Med Rec MISCELLANE ONCE PRN Consult order Sodium Chloride 3 ml 11/05/20 00:00 0.9 % Sodium Chloride Flush 3 Ml Syringe IVFLUSH QSHIFT [facility] Home Medications Medication Instructions Recorded Confirmed Last Taken Type warfarin 3 mg tablet 3 mg PO DAILY 01/23/20 11/04/20 11/04/20 History cholecalciferol (vitamin D3) 50 50 mcg PO DAILY 02/12/20 11/04/20 11/04/20 History mcg (2,000 unit) capsule guaifenesin 600 mg tablet, 600 mg PO Q12H PRN 02/12/20 11/04/20 Unknown History extended release 12 hr (Mucus Relief ER) Physical Exam Vital Signs and Narrative: Vital Signs: Last Vital Signs Temp 97.9 F 11/04/20 12:46 Pulse 81 11/04/20 17:59 Resp 16 11/04/20 14:46 BP 191/98 H 11/04/20 14:46 Pulse Ox 89 L 11/04/20 14:46 Body Mass Index 28.3 Phsyical exam: ?physical exam: Constitutional:? ? speaking in short sentences short of breath, pleasant female heent:eye: anicteric , no discharge oral mucosa moist. cvs: RRR, S1-S2 heard ?pulmonary:? air entry diminished at bases, bilateral wheezing. Musculoskeletal: Reports no additional musculoskeletal complaints. ?abdominal: ? soft no, nondistended, nontender, bowel sounds are present. Skin:? no? swelling, no rashes Psychiatric: Reports no additional psychiatric complaints Results Labs CBC and Chem 7: 11/04/20 15:15 11/04/20 15:15 Labs: Laboratory Results - last 24 hr 11/04/20 11/04/20 11/04/20 15:14 15:14 15:14 MCV MCH MCHC RDW Plt Count MPV Immature Gran % (Auto) Neut % (Auto) Lymph % (Auto) [place] % (Auto) Eos % (Auto) Baso % (Auto) Lymph # (Auto) [place] # (Auto) Eos # (Auto) Baso # (Auto) Abs Immat Gran (auto) Absolute Neuts (auto) Absolute Nucleated RBC Nucleated RBC % (auto) PT 37.5 H INR 3.2 H APTT 41.2 H Anion Gap Estim Creat Clear Calc Estimated GFR Random Glucose Lactic Acid 1.7 Calcium Total Bilirubin AST ALT Alkaline Phosphatase Troponin I High Sens 9.5 B-Natriuretic Peptide Total Protein Albumin Urine Color Urine Appearance Urine pH Ur Specific [place] Urine Protein Urine Glucose (UA) Urine Ketones Urine Blood Urine Nitrite Ur Leukocyte Esterase Urine RBC Urine WBC Ur Squamous Epith Cells Urine Bacteria Coronavirus (PCR) Influenza Type A (PCR) Influenza Type B (PCR) RSV RNA Qual (PCR) 11/04/20 11/04/20 11/04/20 15:15 15:15 15:15 MCV MCH MCHC RDW Plt Count MPV Immature Gran % (Auto) Neut % (Auto) Lymph % (Auto) [place] % (Auto) Eos % (Auto) Baso % (Auto) Lymph # (Auto) [place] # (Auto) Eos # (Auto) Baso # (Auto) Abs Immat Gran (auto) Absolute Neuts (auto) Absolute Nucleated RBC Nucleated RBC % (auto) PT INR APTT Anion Gap 17 Estim Creat Clear Calc 42.0 Estimated GFR 52 Random Glucose 112 D Lactic Acid Calcium 9.6 Total Bilirubin 1.4 H AST 23 ALT 17 Alkaline Phosphatase 60 D Troponin I High Sens B-Natriuretic Peptide 115 H Total Protein 7.0 Albumin 4.1 Urine Color Urine Appearance Urine pH Ur Specific [place] Urine Protein Urine Glucose (UA) Urine Ketones Urine Blood Urine Nitrite Ur Leukocyte Esterase Urine RBC Urine WBC Ur Squamous Epith Cells Urine Bacteria Coronavirus (PCR) NEGATIVE Influenza Type A (PCR) NEGATIVE Influenza Type B (PCR) NEGATIVE RSV RNA Qual (PCR) NEGATIVE 11/04/20 11/04/20 15:15 17:06 MCV 108.3 H MCH 35.3 H MCHC 32.6 RDW 15.1 Plt Count 221 MPV 10.8 Immature Gran % (Auto) 3.9 H Neut % (Auto) 85.0 H Lymph % (Auto) 5.4 L [place] % (Auto) 5.4 Eos % (Auto) 0.2 Baso % (Auto) 0.1 Lymph # (Auto) 0.6 L [place] # (Auto) 0.6 Eos # (Auto) 0.0 Baso # (Auto) 0.0 Abs Immat Gran (auto) 0.42 H Absolute Neuts (auto) 9.1 H Absolute Nucleated RBC 0.030 H Nucleated RBC % (auto) 0.3 H PT INR APTT Anion Gap Estim Creat Clear Calc Estimated GFR Random Glucose Lactic Acid Calcium Total Bilirubin AST ALT Alkaline Phosphatase Troponin I High Sens B-Natriuretic Peptide Total Protein Albumin Urine Color YELLOW Urine Appearance CLEAR Urine pH 6.0 Ur Specific [place] 1.015 Urine Protein NEG Urine Glucose (UA) NEG Urine Ketones NEG Urine Blood NEG Urine Nitrite NEG Ur Leukocyte Esterase 1+ H Urine RBC 0 Urine WBC 1-4 Ur Squamous Epith Cells 3+ Urine Bacteria 1+ Coronavirus (PCR) Influenza Type A (PCR) Influenza Type B (PCR) RSV RNA Qual (PCR) Imaging Radiologist's Impressions: Impressions Chest X-Ray 11/04/20 14:58 IMPRESSION: No acute disease. Assessment and Plan (1) Acute exacerbation of chronic obstructive pulmonary disease: Status: Acute (2) Cancer of upper lobe of right lung: Status: Acute (3) Current use of anticoagulant therapy: Status: Acute 1. COPD exacerbation: continue Solu-Medrol, nebs, antibiotic ceftriaxone also given by ED. Patient is on baseline 2 L oxygen at home Cough syrup 2. history of lung cancer: She follows up with Dr. Chavira and also outpatient. 3. History of pulmonary embolism: On warfarin, INR is 3.2 we will hold warfarin today and will check INR in the morning again. Quality Stroke Does the patient have a stroke diagnosis?: No VTE Prior VTE?: No VTE Risk Level:: Medical - moderate - high VTE Device Contraindication: N/A - Device Ordered VTE Drug Contraindication: N/A - Med Ordered
[2020-11-04 19:00] VITALS: BP 158/78; PULSE 88; RESP 22; TEMP 36.2; O2SAT 89
--- NOTE | 2020-11-04 20:49 | PC.NURSE ---
Admission to [facility] Room 376. Active order for telemetry air sampling and monitoring. Patient arrived to unit without a air sampling and monitoring. Notified Dr. Ahumada regarding the need for air sampling and monitoring. Per MD, no need for quality assurance monitor body.
[2020-11-04] MEDS: Melatonin 3 MG TABLET 6 MG PO (21:33)
[2020-11-04] MEDS: methylPREDNISolone Sod Succ 40 MG/ML VIAL IVPUSH (21:33)
[2020-11-04 23:31] VITALS: BP 150/65; PULSE 83; RESP 20; TEMP 36.1; O2SAT 91
[2020-11-04] MEDS: 0.9 % Sodium Chloride Flush 3 ML SYRINGE IVFLUSH (23:33)
[2020-11-04] MEDS: traZODone HCL 25 MG HALFTAB PO (23:59)
[2020-11-05] VITALS (15 sets, daily range): BP systolic 134–165; BP diastolic 63–77; PULSE 60–81; RESP 14–20; TEMP 36.1–36.6; O2SAT 92–98; BMI 29.0
[2020-11-05] MEDS: guaiFENesin 100 MG/5 ML LIQUID PO ×6 (02:47→20:49)
[2020-11-05] MEDS: Heparin Sodium,Porcine 5,000 UNIT/ML VIAL 5000 UNIT SUBCUT ×3 (02:50→18:22)
[2020-11-05] MEDS: Albuterol/Iprat 2.5/0.5MG 3 ML AMPUL.NEB INHALE ×6 (04:44→23:55)
[2020-11-05 07:00] LABS: INTERNATIONAL NORM RATIO 2.7 (0.9-1.1)
[2020-11-05] MEDS: Warfarin Sodium 3 MG TABLET PO (08:32)
[2020-11-05] MEDS: methylPREDNISolone Sod Succ 40 MG/ML VIAL IVPUSH ×2 (08:32→20:49)
[2020-11-05] MEDS: 0.9 % Sodium Chloride Flush 3 ML SYRINGE IVFLUSH ×3 (08:33→20:49)
--- NOTE | 2020-11-05 08:55 | P.CDIC_ITS ---
CDI Concurrent Query Service Date: 11/08/20 Documentation Clarification: Please clarify if you are treating a proba ble/suspected/likely or confirmed: Type: - Respiratory failure with hypoxia - Other (please specify): - Unable to determine Acuity: - Chronic - Acute on chronic - Unable to determine Provider Response: Other Other Diagnosis: never saw the patient PLEASE DO NOT DELETE/MODIFY EXISTING CONTENT Additional information is needed in order to code to the highest accuracy and appropriate Severity of Illness (SOI). Please clarify the information noted below in your progress notes and discharge summary. Risk Factors/Clinical Indicators/Treatments Respiratory rate 16 - 22 shortness of breath, speaks in short sentences On oxygen at 2L NC at home ED Impression: Acute Exacerbation COPD CDS: Alicia Brady RN Contact Number: [phone] Please Review the information above and exercise your independent professional judgment in responding to the query. If you concur, pleas document in the PROGRESS NOTES and DISCHARGE SUMMARY. If you do not agree with the query, pleas e document in the query above. THIS QUERY IS PART OF THE PERMANENT MEDICAL RECORD
--- NOTE | 2020-11-05 12:26 | MHC.CLN ---
NUTRITION PATIENT REPORTS WEIGHT GAIN IN PAST 8 MONTHS BUT UNABLE TO QUANTIFY. REPORTS GOOD INTAKE. ASKED FOR REGULAR RATHER THAN LOW SODIUM DIET. DIET CHANGED TO REGULAR.
--- NOTE | 2020-11-05 14:11 | MHC.CM.PN ---
NURSE BENCH LOOM WEAVER NOTE ELECTRONIC MEDICAL RECORD REVIEWED ALONG WITH CASE DISCUSSED WITH STAFF NURSE AND ON MULTIPLE DISCIPLINARY ROUNDS. MET WITH PATIENT AWAKE ALERT , SHE REPORTED HER SON LIVES WITH HER , SHE BEFORE GETTING SICK WAS INDEPENDENT IN ALL ALDS AND MOBILITY AND USED A WALKER FOR LONGER DISTANCES. SHE REPORTED SHE ALSO HAS A NEBULIZER AND HOME OXYGEN FROM [facility], SHE ATTENDS THE [facility] FOR HER INRS AND IS FOLLOWED BY HER PCP DR Jack COOPER , DR FLYNN PULMONARY,, NAHUM MONTEZ AT [facility] , DR VARGAS HER SURGEON FOR HER LUNG HERE AT [facility] DISCHARGE PLAN AT THIS TIME PATIENT DOES NOT WANT THE VNA (ACTIVE, INDEPENDENT IN HER OWN HOUSECLEANING,COOKING LAUNDRY AND GROCERY SHOPPING) AND CONTINUES TO DRIVE HER CARE. SELF RESUMPTION OF HER [facility] SELF RESUMPTION OF HER [facility] FOR HER HOME OXYGEN AND NEBULIZER PCP DR TONI COOPER PATIENT TO CALL [facility] DISCHARGE FOLLOW UP TRANSPORTATION FAMILY
--- NOTE | 2020-11-05 16:15 | HO.PM.IMPN ---
Subjective Subjective Date of Service: 11/05/20 Interval History: copd exceerbation Review of Systems still sob with little walking, denies any chest pain abdominal pain pain or abdominal pain Physical Exam Vital Signs: Vital Signs: Last Vital Signs Temp 97.3 F 11/05/20 15:21 Pulse 76 11/05/20 15:49 Resp 16 11/05/20 15:21 BP 152/75 H 11/05/20 15:21 Pulse Ox 96 11/05/20 15:21 Body Mass Index 29.0 Physical exam: talking with short sentences Cvs: rrr, [id number] , no murmur res: dimished bretah sounds , has wheezing abd: no rebound or guarding ,nt, bs present. ext pulses present , no cyanosis neuro: axo3 , nonfocal. Objective Data Current Medications Generic Name Dose Route Start Last Admin Trade Name Freq PRN Reason Stop Dose Admin Albuterol/Ipratropium 3 ml 11/04/20 20:00 11/05/20 15:47 Albuterol/Iprat 2.5/0.5mg 3 Ml Ampul.Neb INHALE 3 ml RQ4H ANJELICA Administration Cefuroxime Axetil 500 mg 11/05/20 12:00 11/05/20 14:17 Cefuroxime Axetil 500 Mg Tablet PO 500 mg Q12H ANJELICA Administration Guaifenesin 5 ml 11/04/20 17:45 11/05/20 14:17 Guaifenesin 100 Mg/5 Ml Liquid PO 5 ml Q4H ANJELICA Administration Heparin Sodium (Porcine) 5,000 unit 11/04/20 18:00 11/05/20 08:32 Heparin Sodium,Porcine 5,000 Unit/Ml Vial SUBCUT 5,000 unit Q8H ANJELICA Administration Melatonin 6 mg 11/04/20 21:25 11/05/20 08:33 Melatonin 3 Mg Tablet PO Not Given DAILY ANJELICA Methylprednisolone Sodium Succinate 40 mg 11/04/20 21:00 11/05/20 08:32 Methylprednisolone Sod Succ 40 Mg/Ml Vial IVPUSH 40 mg BID ANJELICA Administration Pharmacy Consult 1 each 11/04/20 15:00 Consult Rx Perform Med Rec MISCELLANE ONCE PRN Consult order Sodium Chloride 3 ml 11/05/20 00:00 11/05/20 14:19 0.9 % Sodium Chloride Flush 3 Ml Syringe IVFLUSH 3 ml QSHIFT ANJELICA Administration Warfarin Sodium 3 mg 11/05/20 09:00 11/05/20 08:32 Warfarin Sodium 3 Mg Tablet PO 3 mg DAILY ANJELICA Administration Labs CBC & Chem 7: 11/04/20 15:15 11/04/20 15:15 Labs: Laboratory Results - last 24 hr 11/04/20 11/04/20 11/05/20 15:15 17:06 06:12 PT 31.0 H INR 2.7 H Urine Color YELLOW Urine Appearance CLEAR Urine pH 6.0 Ur Specific [place] 1.015 Urine Protein NEG Urine Glucose (UA) NEG Urine Ketones NEG Urine Blood NEG Urine Nitrite NEG Ur Leukocyte Esterase 1+ H Urine RBC 0 Urine WBC 1-4 Ur Squamous Epith Cells 3+ Urine Bacteria 1+ Coronavirus (PCR) NEGATIVE Influenza Type A (PCR) NEGATIVE Influenza Type B (PCR) NEGATIVE RSV RNA Qual (PCR) NEGATIVE Microbiology Microbiology Results: Microbiology 11/04/20 17:33 Urine Culture - Preliminary Urine clean catch - Urine luna top No growth to date. Assessment and Plan (1) Acute exacerbation of chronic obstructive pulmonary disease: Status: Acute Assessment and Plan: 1.? COPD exacerbation: throat culture ? ? Patient is on baseline 2 L oxygen at home continue Solu-Medrol, nebs, antibiotic ceftriaxone also given by ED, switched to ceftin . ? Cough syrup, incentive spirometry, , chest physio 2. history of lung cancer:? She follows up with Dr. Lopez and also outpatient. 3.? History of pulmonary embolism:? On warfarin, INR is 2.7 ?started warfarin today and will check INR in the morning again. Quality Stroke Does the patient have a stroke diagnosis?: No VTE Prior VTE?: No VTE Risk Level:: Medical - moderate - high VTE Device Contraindication: N/A - Device Ordered VTE Drug Contraindication: N/A - Med Ordered
[2020-11-05] MEDS: traZODone HCL 25 MG HALFTAB PO (23:30)
[2020-11-06] MEDS: guaiFENesin 100 MG/5 ML LIQUID PO ×3 (03:04→08:58)
[2020-11-06] MEDS: Heparin Sodium,Porcine 5,000 UNIT/ML VIAL 5000 UNIT SUBCUT ×2 (03:04→08:58)
[2020-11-06 04:00] VITALS: BP 135/69; PULSE 64; RESP 19; TEMP 36.1; O2SAT 96
[2020-11-06 06:34] VITALS: PULSE 65; O2SAT 94
[2020-11-06] MEDS: Albuterol/Iprat 2.5/0.5MG 3 ML AMPUL.NEB INHALE ×2 (06:34→11:46)
[2020-11-06 07:23] LABS: INTERNATIONAL NORM RATIO 2.6 (0.9-1.1); Prothrombin Time 29.9 SEC (9.9-13.0)
[2020-11-06 08:00] VITALS: BP 160/78; PULSE 73; RESP 19; TEMP 36.7; O2SAT 97
[2020-11-06] MEDS: methylPREDNISolone Sod Succ 40 MG/ML VIAL IVPUSH (08:58)
[2020-11-06] MEDS: 0.9 % Sodium Chloride Flush 3 ML SYRINGE IVFLUSH (08:59)
--- NOTE | 2020-11-06 09:09 | HO.PM.IMPN ---
Subjective Subjective Date of Service: 11/06/20 Interval History: Seen in f/u for COPD exacerbation, still feels SOB, Review of Systems Gen: no fever Resp: + sob, + cough CV: no chest, no NIELSEN, no leg edema GI: No n/v, no abd pain Neuro: No confusion Physical Exam Vital Signs: Vital Signs: Last Vital Signs Temp 98.1 F 11/06/20 08:00 Pulse 73 11/06/20 08:00 Resp 19 11/06/20 08:00 BP 160/78 H 11/06/20 08:00 Pulse Ox 97 11/06/20 08:00 Body Mass Index 29.0 General: AO X 3, no acute distress Resp: Festus rhconchi, rare use CVS: S1,S2,RRR GI: +BS, NT, no distention Skin: No rash Neuro: motor grossly intact Psych: appropriate affect Objective Data Current Medications Generic Name Dose Route Start Last Admin Trade Name Freq PRN Reason Stop Dose Admin Albuterol/Ipratropium 3 ml 11/04/20 20:00 11/06/20 06:34 Albuterol/Iprat 2.5/0.5mg 3 Ml Ampul.Neb INHALE 3 ml RQ4H ANJELICA Administration Cefuroxime Axetil 500 mg 11/05/20 12:00 11/05/20 23:30 Cefuroxime Axetil 500 Mg Tablet PO 500 mg Q12H ANJELICA Administration Guaifenesin 5 ml 11/04/20 17:45 11/06/20 08:58 Guaifenesin 100 Mg/5 Ml Liquid PO 5 ml Q4H ANJELICA Administration Heparin Sodium (Porcine) 5,000 unit 11/04/20 18:00 11/06/20 08:58 Heparin Sodium,Porcine 5,000 Unit/Ml Vial SUBCUT 5,000 unit Q8H ANJELICA Administration Melatonin 6 mg 11/06/20 21:00 Melatonin 3 Mg Tablet PO BEDTIME ANJELICA Methylprednisolone Sodium Succinate 40 mg 11/04/20 21:00 11/06/20 08:58 Methylprednisolone Sod Succ 40 Mg/Ml Vial IVPUSH 40 mg BID ANJELICA Administration Pharmacy Consult 1 each 11/04/20 15:00 Consult Rx Perform Med Rec MISCELLANE ONCE PRN Consult order Sodium Chloride 3 ml 11/05/20 00:00 11/06/20 08:59 0.9 % Sodium Chloride Flush 3 Ml Syringe IVFLUSH 3 ml QSHIFT [facility] Administration Warfarin Sodium 3 mg 11/06/20 18:00 Warfarin Sodium 3 Mg Tablet PO DAILY@1800 [facility] Labs CBC & Chem 7: 11/04/20 15:15 11/04/20 15:15 Labs: Laboratory Results - last 24 hr 11/06/20 11/06/20 06:30 06:30 PT 29.9 H Cancelled INR 2.6 H Cancelled Microbiology Microbiology Results: Microbiology 11/05/20 12:30 Throat Culture - Preliminary Throat No Group A Beta-hemolytic Streptococci isolated to date. 11/04/20 17:33 Urine Culture - Final Urine clean catch - Urine luna top 11/04/20 15:29 Blood Culture - Preliminary Blood - Venous No growth after 24 hours. 11/04/20 15:14 Blood Culture - Preliminary Blood - Venous No growth after 24 hours. Assessment and Plan (1) Acute exacerbation of chronic obstructive pulmonary disease: Status: Acute (2) Current use of anticoagulant therapy: Status: Acute Assessment and Plan: 75/F with exacerbation of COPD 1.? COPD exacerbation: Improving -[place] to oral steroid -Continue Bronchodilation -Ceftin for bronchitis. -cough syrup PRN -continue O2, uses it at [place] ? \2.? History of pulmonary embolism:? On warfarin, INR is 2.6 ?started warfarin today and will check INR in the morning again. Possible DC later today if better Quality Stroke Does the patient have a stroke diagnosis?: No VTE Prior VTE?: No VTE Risk Level:: Medical - moderate - high VTE Device Contraindication: N/A - Device Ordered VTE Drug Contraindication: N/A - Med Ordered
--- NOTE | 2020-11-06 10:37 | PM.DS ---
DS: Providers Provider Date of Service: 11/06/20 Date of admission: 11/04/20 17:40 Primary care physician: Angel Montiel MD DS: Diagnosis Discharge Diagnosis (1) Acute exacerbation of chronic obstructive pulmonary disease: Status: Acute (2) Current use of anticoagulant therapy: Status: Acute DS: Medications Discharge Medications Home Medications: Home Medications Medication Instructions Recorded Confirmed warfarin 3 mg tablet 3 mg PO DAILY 01/23/20 11/04/20 cholecalciferol (vitamin D3) 50 50 mcg PO DAILY 02/12/20 11/04/20 mcg (2,000 unit) capsule guaifenesin 600 mg tablet, 600 mg PO Q12H PRN 02/12/20 11/04/20 extended release 12 hr (Mucus Relief ER) Previous Rx's Medication Instructions Recorded formoterol fumarate 20 mcg/2 mL 2 ml INHALATION BID #60 ml 02/06/20 solution for nebulization (Perforomist) prednisone 5 mg tablet 5 mg PO DAILY #30 tab 06/07/20 Ventolin HFA 90 mcg/actuation 2 puff INHALATION Q4-6H PRN #18 g 06/08/20 aerosol inhaler (albuterol sulfate) NS azithromycin 250 mg tablet 250 mg PO DAILY 90 Days #90 tab 10/18/20 ipratropium 0.5 mg-albuterol 3 mg 3 ml INHALATION Q6H PRN 30 Days 10/25/20 (2.5 mg base)/3 mL nebulization #270 ml soln prednisone 10 mg tablet 10 mg PO DAILY #26 tab 10/31/20 prednisone 20 mg tablet 40 mg PO DAILY #4 tab 11/06/20 DS: Summary Hospital Course Hospital Course: Chief Complaint:? shortness of breath ,cough ?75-year-old female who came to the hospital because of having cough and shortness of breath for few days- she has history of COPD/ lung? cancer probably- status post surgery in May 2020 and also in November 2019 as per patient:? she follows up with Dr. Jacques,? she says that her shortness of breath was getting worse and was having difficulty talking as well as with mild adjacent she was getting short of breath so decided to go come to the hospital- recent workup including CTA 2days back negative. Hospital course: Patient was admitted with exacerbation of COPD and treated with IV steroid and bronchodilaors by Neb until she improved and then was transitioned to oral Prednisone and to continue home Oxygen and inhlers. She feels comfortable going home today. Time Spent with Patient Time attestation: Total time spent providing and/or coordinating discharge services: Discharge coordination time: Greater than 30 minutes Quality: Stroke Does the patient have a stroke diagnosis?: No Physical Exam Vital Signs: Vital Signs: Last Vital Signs Temp 98.1 F 11/06/20 08:00 Pulse 73 11/06/20 08:00 Resp 19 11/06/20 08:00 BP 160/78 H 11/06/20 08:00 Pulse Ox 97 11/06/20 08:00 Body Mass Index 29.0 .see pogress note DS: Data Data Completed and Pending Labs on day of discharge: Laboratory Results - last 24 hr 11/06/20 11/06/20 06:30 06:30 PT 29.9 H Cancelled INR 2.6 H Cancelled Preliminary micro results at discharge 11/05/20 12:30 Throat Culture - Preliminary Throat No Group A Beta-hemolytic Streptococci isolated to date. 11/04/20 15:29 Blood Culture - Preliminary Blood - Venous No growth after 24 hours. 11/04/20 15:14 Blood Culture - Preliminary Blood - Venous No growth after 24 hours. Discharge Plan Discharge Anticipated Discharge Date/Time: 11/06/20 10:31 Patient Disposition: Home, Self-Care Discharge Diagnosis: COPD exacacerbation Referrals: Angel Montiel MD [Primary Care Provider] - 1 Week Discharge Medications: New prednisone 20 mg tablet 40 mg PO DAILY Qty: 4 RF: 0 Continued formoterol fumarate [Perforomist] 20 mcg/2 mL solution for nebulization 2 ml inhalation BID Qty: 60 RF: 11 cholecalciferol (vitamin D3) 50 mcg (2,000 unit) capsule 50 mcg PO DAILY RF: 0 guaifenesin [Mucus Relief ER] 600 mg tablet extended release 12hr 600 mg PO Q12H PRN (Reason: Congestion) RF: 0 prednisone 5 mg tablet 5 mg PO DAILY Qty: 30 RF: 0 albuterol sulfate [Ventolin HFA] 90 mcg/actuation HFA aerosol inhaler 2 puff inhalation Q4-6H PRN (Reason: shortness of breath or wheezing) Qty: 18 RF: 2 ipratropium-albuterol 0.5 mg-3 mg(2.5 mg base)/3 mL solution for nebulization 3 ml inhalation Q6H PRN (Reason: COPD) 30 Days Qty: 270 RF: 3 prednisone 10 mg tablet 10 mg PO DAILY Qty: 26 RF: 0 warfarin 3 mg tablet 3 mg PO DAILY RF: 0 azithromycin 250 mg tablet 250 mg PO DAILY 90 Days Qty: 90 RF: 3 Discharge Orders: Discharge Order (Routine); Ordered 11/06/20 Ordered By: Anderson Gr Diet: advance to usual diet Activity on Discharge: As tolerated Stand Alone Forms: Patient Portal Discharge page Care Plan Goals: prevent rehospitalization from COPD Health Concerns: COPD on home O2 Plan of Treatment: Use inhaler and take Prednisone as directed and follow up with your Doctor in a week Assessment: As above
--- NOTE | 2020-11-06 11:43 | MHC.CM.PN ---
nurse transitional care liaison note electronic medical record reviewed along with case discussed with hospitlist and staff nurse , met with patient , she reported that she just wants to go home, orders were written and she will be dischagred home no services discharge plan home no new services aself resumption of her home nebulier and home oxygen from [facility] - dr demi hodge patient instructed to call for post hospitla discharge follow up transportation family encouraged her if still not better yo call her pcp for appointment or to order the visisting nurses , at this time she is still declining the servcies and does not want to be home bound,
[2020-11-06 11:48] VITALS: PULSE 63; O2SAT 94
== END 2020-11-06 13:32 | disposition home or self-care (01) | DRG 192 ==
LOC: HO.ED 17:37 → HO.S3 18:02
PROVIDERS: Nurse Practitioner Primary Care; Admitting Provider Internal Medicine; Emergency Provider Emergency Medicine Emergency Medical Services; PCP Internal Medicine; Visit Provider Internal Medicine
DX: J44.1 Chronic obstructive pulmonary disease with (acute) exacerbation (principal); Z20.822 Contact with and (suspected) exposure to COVID-19; Z86.711 Personal history of pulmonary embolism; Z99.81 Dependence on supplemental oxygen; Z85.118 Personal history of other malignant neoplasm of bronchus and lung; Z87.891 Personal history of nicotine dependence; Z79.01 Long term (current) use of anticoagulants; Z79.52 Long term (current) use of systemic steroids; Z79.899 Other long term (current) drug therapy
CPT/HCPCS: 0241U; 36415; 71045; 80053; 81001; 83605; 83880; 84484; 85025; 85610; 85730; 87040; 87071; 87086; 93005; 94640; 99285; J0696; J2920; J2930

== ENCOUNTER → 2020-11-17 14:08 | Outpatient (BNVA) | payer MEDICARE, SELFPAY | PROVIDERS: PCP Internal Medicine; Visit Provider Internal Medicine | DX: I26.99 Other pulmonary embolism without acute cor pulmonale (principal); Z79.01 Long term (current) use of anticoagulants; Z51.81 Encounter for therapeutic drug level monitoring | CPT/HCPCS: 85610; 99211 ==

== ENCOUNTER → 2020-11-18 14:44 | Outpatient (BNVA) | payer MEDICARE, SELFPAY | PROVIDERS: PCP Internal Medicine; Visit Provider Internal Medicine | DX: J44.9 Chronic obstructive pulmonary disease, unspecified (principal); C34.12 Malignant neoplasm of upper lobe, left bronchus or lung; C34.11 Malignant neoplasm of upper lobe, right bronchus or lung; F41.9 Anxiety disorder, unspecified | CPT/HCPCS: 99212 ==

== ENCOUNTER → 2020-11-19 10:27 | Outpatient (BNVA) | payer MEDICARE, SELFPAY | PROVIDERS: PCP Internal Medicine; Visit Provider Surgery | DX: C34.12 Malignant neoplasm of upper lobe, left bronchus or lung (principal); C34.11 Malignant neoplasm of upper lobe, right bronchus or lung; Z79.899 Other long term (current) drug therapy; Z79.01 Long term (current) use of anticoagulants; Z99.81 Dependence on supplemental oxygen | CPT/HCPCS: 99212 ==

== ENCOUNTER → 2020-12-08 14:16 | Outpatient (BNVA) | payer MEDICARE, SELFPAY | PROVIDERS: PCP Internal Medicine; Visit Provider Internal Medicine | DX: I26.99 Other pulmonary embolism without acute cor pulmonale (principal); Z51.81 Encounter for therapeutic drug level monitoring; Z79.01 Long term (current) use of anticoagulants | CPT/HCPCS: 85610; 99211 ==

== ENCOUNTER → 2020-12-15 14:08 | Outpatient (BNVA) | payer MEDICARE, SELFPAY | PROVIDERS: PCP Internal Medicine; Visit Provider Internal Medicine | DX: I26.99 Other pulmonary embolism without acute cor pulmonale (principal); Z51.81 Encounter for therapeutic drug level monitoring; Z79.01 Long term (current) use of anticoagulants | CPT/HCPCS: 85610; 99211 ==

== ENCOUNTER → 2020-12-21 13:11 | Outpatient (BNVA) | payer MEDICARE, SELFPAY | PROVIDERS: PCP Internal Medicine; Visit Provider Internal Medicine | DX: J44.1 Chronic obstructive pulmonary disease with (acute) exacerbation (principal); J44.9 Chronic obstructive pulmonary disease, unspecified; J42 Unspecified chronic bronchitis; C34.12 Malignant neoplasm of upper lobe, left bronchus or lung; C34.11 Malignant neoplasm of upper lobe, right bronchus or lung | CPT/HCPCS: 85610; 99211; 99212 ==

== ENCOUNTER → 2020-12-29 13:58 | Outpatient (BNVA) | payer MEDICARE, SELFPAY | PROVIDERS: PCP Internal Medicine; Visit Provider Internal Medicine | DX: I26.99 Other pulmonary embolism without acute cor pulmonale (principal); Z51.81 Encounter for therapeutic drug level monitoring; Z79.01 Long term (current) use of anticoagulants | CPT/HCPCS: 85610; 99211 ==

== ENCOUNTER → 2021-01-12 14:39 | Outpatient (BNVA) | payer MEDICARE, SELFPAY | PROVIDERS: PCP Internal Medicine; Visit Provider Internal Medicine | DX: I26.99 Other pulmonary embolism without acute cor pulmonale (principal); Z51.81 Encounter for therapeutic drug level monitoring; Z79.01 Long term (current) use of anticoagulants | CPT/HCPCS: 85610; 99211 ==

== ENCOUNTER → 2021-01-26 14:15 | Outpatient (BNVA) | payer MEDICARE, SELFPAY | PROVIDERS: PCP Internal Medicine; Visit Provider Internal Medicine | DX: I26.99 Other pulmonary embolism without acute cor pulmonale (principal); Z51.81 Encounter for therapeutic drug level monitoring; Z79.01 Long term (current) use of anticoagulants | CPT/HCPCS: 85610; 99211 ==

== ENCOUNTER → 2021-02-01 13:56 | Outpatient (BNVA) | payer MEDICARE, SELFPAY | PROVIDERS: PCP Internal Medicine; Visit Provider Internal Medicine | DX: J44.9 Chronic obstructive pulmonary disease, unspecified (principal); J42 Unspecified chronic bronchitis; F41.9 Anxiety disorder, unspecified; C34.11 Malignant neoplasm of upper lobe, right bronchus or lung; C34.12 Malignant neoplasm of upper lobe, left bronchus or lung | CPT/HCPCS: 99212 ==

== ENCOUNTER 2021-02-08 12:50 | Outpatient (REF) | payer MEDICARE, SELFPAY ==
--- NOTE | ~2021-02-08 | CT_ITS ---
EXAMINATION: CT CHEST WITH CONTRAST CLINICAL INFORMATION: Follow-up pulmonary nodule COMPARISON: Previous chest CT scans, most recent August CTA of the chest from October 2020 TECHNIQUE: Multidetector volumetric CT imaging of the chest was obtained after the administration of 65 mL of Omnipaque 350 intravenous contrast without immediate adverse reactions. Axial MIP volume rendering provided. Sagittal and coronal reformatted images were obtained. This CT examination was performed using dose optimization techniques as appropriate, variously including the following: *Automated exposure control *Adjustment of mA and/or kV according to patient size (this includes techniques or standardized protocols for targeted exams where dose is matched to indication/reason for exam; i.e. extremities or head) *Use of iterative reconstruction technique DLP: 133 mGy-cm FINDINGS: LUNGS: There are postsurgical changes to the bilateral upper lobes. There is a 3 mm calcified right lower lobe nodule axial image 58 series 7 that is stable. There is a 2 mm right lower lobe nodule axial image 76 series 7 that is stable. There is a 2 mm left lower lobe nodule axial image 133 series 7 that is stable. There is an 8 x 11 mm central left upper lobe nodule versus hilar lymphadenopathy axial image 58 series 7. This measured 4 x 8 mm on October 2020 exam and is slightly increased in size. There is a peripheral scarring seen in the anterior left upper lobe and right anterior lateral lower lobe that appears unchanged. No endobronchial or endotracheal lesion is seen. MEDIASTINUM: There is a 1.3 cm right thyroid nodule that is stable. No imaging follow-up needed. There is a likely increasing left superior hilar lymph node that is upper normal in size as described above. There are additional smaller mediastinal and hilar lymph nodes. The heart is upper normal in size. There is coronary artery calcification. The thoracic aorta is tortuous but normal in caliber. The pulmonary arteries appear prominent, main pulmonary artery measuring 3.3 cm. PLEURA: There is no pleural effusion. No pleural mass or thickening. AXILLA: No lymphadenopathy. UPPER ABDOMEN: There is diverticulosis of the colon. OSSEOUS STRUCTURES: There is scoliosis of the spine and degenerative changes. There are multiple bilateral rib rib fractures of varying ages. No new rib fracture the in the interval from October [address]/CT chest w con IMPRESSION: Stable postsurgical changes. Increasing central left upper lobe nodule probably representing a left suprahilar lymph node. This is upper normal in size now measuring 8 x 11 mm. Other small pulmonary nodules are stable.
[2021-02-08 13:14] LABS: Blood Urea Nitrogen 17 mg/dL (9-16); Estimated Glomerular Filt Rate 50
[2021-02-08] MEDS: iohexoL 350 MG/ML 100 ML INFUS..BTL IV (14:49)
== END 2021-02-08 12:51 | disposition home or self-care (01) ==
LOC: HO.CT 12:50
PROVIDERS: PCP Internal Medicine; Visit Provider Surgery
DX: R91.1 Solitary pulmonary nodule (principal)
CPT/HCPCS: 36415; 71260; 82565; 84520; Q9967

== ENCOUNTER → 2021-02-16 14:32 | Outpatient (BNVA) | payer MEDICARE, SELFPAY | PROVIDERS: PCP Internal Medicine; Visit Provider Internal Medicine | DX: I26.99 Other pulmonary embolism without acute cor pulmonale (principal); Z51.81 Encounter for therapeutic drug level monitoring; Z79.01 Long term (current) use of anticoagulants | CPT/HCPCS: 85610; 99211 ==

== ENCOUNTER → 2021-02-18 11:16 | Outpatient (BNVA) | payer MEDICARE, SELFPAY | PROVIDERS: PCP Internal Medicine; Visit Provider Surgery | DX: C34.12 Malignant neoplasm of upper lobe, left bronchus or lung (principal); C34.11 Malignant neoplasm of upper lobe, right bronchus or lung; R91.1 Solitary pulmonary nodule; Z79.899 Other long term (current) drug therapy; Z79.01 Long term (current) use of anticoagulants; Z90.2 Acquired absence of lung [part of]; Z99.81 Dependence on supplemental oxygen; Z87.891 Personal history of nicotine dependence | CPT/HCPCS: 99212 ==

== ENCOUNTER → 2021-03-09 14:31 | Outpatient (BNVA) | payer MEDICARE, SELFPAY | PROVIDERS: PCP Internal Medicine; Visit Provider Internal Medicine | DX: I26.99 Other pulmonary embolism without acute cor pulmonale (principal); Z51.81 Encounter for therapeutic drug level monitoring; Z79.01 Long term (current) use of anticoagulants | CPT/HCPCS: 85610; 99211 ==

== ENCOUNTER → 2021-03-31 14:32 | Outpatient (BNVA) | payer MEDICARE, SELFPAY | PROVIDERS: PCP Internal Medicine; Visit Provider Internal Medicine | DX: I26.99 Other pulmonary embolism without acute cor pulmonale (principal); Z51.81 Encounter for therapeutic drug level monitoring; Z79.01 Long term (current) use of anticoagulants | CPT/HCPCS: 85610; 99211 ==

== ENCOUNTER → 2021-04-14 14:12 | Outpatient (BNVA) | payer MEDICARE, SELFPAY | PROVIDERS: PCP Internal Medicine; Visit Provider Internal Medicine | DX: J44.9 Chronic obstructive pulmonary disease, unspecified (principal); F41.9 Anxiety disorder, unspecified; C34.12 Malignant neoplasm of upper lobe, left bronchus or lung; I26.99 Other pulmonary embolism without acute cor pulmonale; Z87.891 Personal history of nicotine dependence; Z99.81 Dependence on supplemental oxygen; Z79.899 Other long term (current) drug therapy; Z51.81 Encounter for therapeutic drug level monitoring; Z79.01 Long term (current) use of anticoagulants | CPT/HCPCS: 85610; 99211; 99212 ==

== ENCOUNTER 2021-04-26 10:30 | Outpatient (REF) | payer MEDICARE, SELFPAY ==
[2021-04-26 10:33] LABS: MANUAL DIFF FLAG NO
[2021-04-26 11:02] LABS: Basophils Percent Auto 0.4 % (0-2); Eosinophils Absolute Auto 0.1 X10*3/uL (0.0-0.4); Eosinophils Percent Auto 1.5 % (0-4); Hematocrit 43.2 % (37.0-47.0); Hemoglobin 13.8 g/dl (12.0-16.0); Imm Gran Abs Auto 0.11 X10*3/uL (0.00-0.03); Imm Gran Pct Auto 1.2 % (0.0-0.4); Lymphocytes Absolute Auto 2.2 X10*3/uL (1.2-4.9); Lymphocytes Percent Auto 23.9 % (20-40); Mean Corpuscular HGB Conc 31.9 g/dl (31.0-35.0); Mean Corpuscular Volume 109.6 fL (80.0-98.0); Mean Platelet Volume 11.2 fL (9.4-12.3); Monocytes Absolute Auto 0.8 X10*3/uL (0.1-1.2); Neutrophils Absolute Auto 5.9 x10*3/uL (2.0-8.3); Platelet Count 250 X10*3/uL (160-400); Red Blood Count 3.94 X10*6/uL (4.20-5.50); Red Cell Distribution Width 15.2 % (11.0-16.0); White Blood Count 9.3 X10*3/uL (4.8-10.8)
[2021-04-26 11:17] LABS: Appearance Urine CLOUDY; Color Urine YELLOW; Glucose Urine UA NEG (NEG); Leukocyte Esterase Urine 2+ (NEG); Nitrite Urine NEG (NEG); PH 5.5 (5.0-8.0); Specific Gravity - Urine 1.025 (1.005-1.025); Urine Blood NEG (NEG); Urine Ketones NEG (NEG); Urine Protein NEG (NEG-TRACE)
[2021-04-26 11:48] LABS: Alanine Aminotransferase 17 U/L (0-31); Albumin Level 3.5 g/dL (3.5-5.0); Alkaline Phosphatase 50 U/L (39-117); Anion Gap 15 (12-20); Aspartate Amino Transferase 17 U/L (5-31); Blood Urea Nitrogen 24 mg/dL (9-16); Calcium 9.2 mg/dL (8.4-10.2); Carbon Dioxide 30 mmol/L (22-29); Chloride 106 mmol/L (96-108); Cholesterol 293 mg/dL; Estimated Glomerular Filt Rate 45; Glucose Fasting 78 mg/dL (60-99); HDL Cholesterol 108 mg/dL; LDL Cholesterol Calculated 161 mg/dl; Potassium 4.6 mmol/L (3.3-5.1); Sodium 146 mmol/L (135-145); Total Protein 5.8 g/dL (6.5-8.0); Triglycerides 121 mg/dL
[2021-04-26 11:51] LABS: Amorphous Sediment Urine 1+ /LPF; Bacteria Urine 2+ /LPF; RBC Urine 0 /HPF (0); Squamous Epithelial Cell Urine 2+ /LPF
== END 2021-04-26 10:31 | disposition home or self-care (01) ==
LOC: HO.LNP 10:30
PROVIDERS: Visit Provider Internal Medicine
DX: I10 Essential (primary) hypertension (principal)
CPT/HCPCS: 80053; 80061; 81001; 81003; 82306; 85025

== ENCOUNTER → 2021-04-28 14:35 | Outpatient (BNVA) | payer MEDICARE, SELFPAY | PROVIDERS: PCP Internal Medicine; Visit Provider Internal Medicine | DX: I26.99 Other pulmonary embolism without acute cor pulmonale (principal); Z51.81 Encounter for therapeutic drug level monitoring; Z79.01 Long term (current) use of anticoagulants | CPT/HCPCS: 85610; 99211 ==

== ENCOUNTER 2021-05-03 14:01 | Outpatient (REF) | payer MEDICARE, SELFPAY ==
--- NOTE | ~2021-05-03 | CT_ITS ---
EXAMINATION: CT CHEST WITH CONTRAST CLINICAL INFORMATION: Solitary pulmonary nodule. COMPARISON: Previous chest CT most recent October 2020 TECHNIQUE: Multidetector volumetric CT imaging of the chest was obtained after the administration of 65 mL of Omnipaque 350 intravenous contrast without immediate adverse reactions. Axial MIP volume rendering provided. Sagittal and coronal reformatted images were obtained. This CT examination was performed using dose optimization techniques as appropriate, variously including the following: *Automated exposure control. *Adjustment of mA and/or kV according to patient size (this includes techniques or standardized protocols for targeted exams where dose is matched to indication/reason for exam; i.e. extremities or head). *Use of iterative reconstruction technique. DLP: 118 mGy-cm FINDINGS: LUNGS: There are postsurgical changes to both upper lobes. There is a right upper lobe lobectomy and partial left upper lobe lobectomy. The 8 x 11 mm question central left upper lobe nodule versus hilar lymph node appears unchanged, axial image 153 series 7. Other smaller micronodules are stable. There is peripheral scarring seen in the anterior left upper lobe and anterior lateral right lower lobe that is stable. MEDIASTINUM: There is a 1.5 cm right thyroid nodule that is stable. Heart does not appear enlarged. There is no pericardial effusion. The thoracic aorta is very tortuous. There are small hilar and mediastinal lymph nodes that are stable. The pulmonary arteries are upper normal in size. PLEURA: There is no pleural effusion. No pleural mass or thickening. AXILLA: There is a left breast nodule that measures 6 x 13 mm. This does not appear appreciably changed. There may be postsurgical changes to the left breast. There are are no enlarged axillary lymph nodes. UPPER ABDOMEN: Unremarkable. OSSEOUS STRUCTURES: There is severe thoracolumbar scoliosis. There are degenerative changes of the spine. There are multiple bilateral old or healing rib fractures, left greater than right. CT/CT chest w con IMPRESSION: Stable 8 x 11 mm central left upper lobe nodule versus hilar lymph node. Fleischner guidelines were followed.
[2021-05-03] MEDS: iohexoL 350 MG/ML 100 ML INFUS..BTL IV (14:50)
== END 2021-05-03 14:02 | disposition home or self-care (01) ==
LOC: HO.CT 14:01
PROVIDERS: PCP Internal Medicine; Visit Provider Surgery
DX: R91.1 Solitary pulmonary nodule (principal)
CPT/HCPCS: 71260; Q9967

== ENCOUNTER → 2021-05-20 11:15 | Outpatient (BNVA) | payer MEDICARE, SELFPAY | PROVIDERS: PCP Internal Medicine; Visit Provider Surgery | DX: I26.99 Other pulmonary embolism without acute cor pulmonale (principal); Z51.81 Encounter for therapeutic drug level monitoring; Z79.01 Long term (current) use of anticoagulants; C34.12 Malignant neoplasm of upper lobe, left bronchus or lung; C34.11 Malignant neoplasm of upper lobe, right bronchus or lung; R91.1 Solitary pulmonary nodule | CPT/HCPCS: 85610; 99211; 99212 ==

== ENCOUNTER → 2021-05-27 14:41 | Outpatient (BNVA) | payer MEDICARE, SELFPAY | PROVIDERS: PCP Internal Medicine; Visit Provider Internal Medicine | DX: I26.99 Other pulmonary embolism without acute cor pulmonale (principal); Z51.81 Encounter for therapeutic drug level monitoring; Z79.01 Long term (current) use of anticoagulants | CPT/HCPCS: 85610; 99211 ==

== ENCOUNTER → 2021-06-07 15:06 | Outpatient (BNVA) | payer MEDICARE, SELFPAY | PROVIDERS: PCP Internal Medicine; Visit Provider Internal Medicine | DX: I26.99 Other pulmonary embolism without acute cor pulmonale (principal); Z51.81 Encounter for therapeutic drug level monitoring; Z79.01 Long term (current) use of anticoagulants | CPT/HCPCS: 85610; 99211 ==

== ENCOUNTER → 2021-06-14 14:11 | Outpatient (BNVA) | payer MEDICARE, SELFPAY | PROVIDERS: PCP Internal Medicine; Visit Provider Internal Medicine | DX: J44.9 Chronic obstructive pulmonary disease, unspecified (principal); C34.12 Malignant neoplasm of upper lobe, left bronchus or lung; C34.11 Malignant neoplasm of upper lobe, right bronchus or lung; M81.0 Age-related osteoporosis without current pathological fracture; F41.9 Anxiety disorder, unspecified; Z87.891 Personal history of nicotine dependence; Z85.3 Personal history of malignant neoplasm of breast; Z79.52 Long term (current) use of systemic steroids; Z79.01 Long term (current) use of anticoagulants; Z79.899 Other long term (current) drug therapy | CPT/HCPCS: 99212 ==

== ENCOUNTER → 2021-06-21 14:56 | Outpatient (BNVA) | payer MEDICARE, SELFPAY | PROVIDERS: PCP Internal Medicine; Visit Provider Internal Medicine | DX: I26.99 Other pulmonary embolism without acute cor pulmonale (principal); Z51.81 Encounter for therapeutic drug level monitoring; Z79.01 Long term (current) use of anticoagulants | CPT/HCPCS: 85610; 99211 ==

== ENCOUNTER → 2021-07-07 15:43 | Outpatient (BNVA) | payer MEDICARE, SELFPAY | PROVIDERS: PCP Internal Medicine; Visit Provider Internal Medicine | DX: J44.9 Chronic obstructive pulmonary disease, unspecified (principal); F41.9 Anxiety disorder, unspecified; C34.12 Malignant neoplasm of upper lobe, left bronchus or lung; C34.11 Malignant neoplasm of upper lobe, right bronchus or lung | CPT/HCPCS: 99212 ==

== ENCOUNTER → 2021-07-12 14:14 | Outpatient (BNVA) | payer MEDICARE, SELFPAY | PROVIDERS: PCP Internal Medicine; Visit Provider Internal Medicine | DX: I26.99 Other pulmonary embolism without acute cor pulmonale (principal); Z51.81 Encounter for therapeutic drug level monitoring; Z79.01 Long term (current) use of anticoagulants | CPT/HCPCS: 85610; 99211 ==

== ENCOUNTER 2021-07-24 12:52 | Emergency (ER) | payer MEDICARE, SELFPAY ==
--- NOTE | ~2021-07-24 | XR_ITS ---
EXAMINATION: XR CHEST CLINICAL INFORMATION: SOB and hypoxia COMPARISON: CT chest 05/03/2021 TECHNIQUE: 2 views of the chest were obtained. FINDINGS: The lungs are hyperinflated but clear of acute process. There is minimal atelectatic changes left lung base. The heart size and pulmonary vascularity is normal. There is dextroscoliosis dorsal spine. XR/XR chest 2V IMPRESSION: No acute cardiopulmonary process seen. Hyperinflated lungs with minimal atelectatic changes left lung base.
--- NOTE | ~2021-07-24 | CT_ITS ---
EXAMINATION: CT ANGIOGRAM OF THE CHEST WITH AND WITHOUT CONTRAST (CT PULMONARY ANGIOGRAM FOR PE) CLINICAL INFORMATION: Reason for Exam SOB, congestion, right lower rib pain COMPARISON: None TECHNIQUE: Prior to contrast administration, noncontrast localization images were obtained. Subsequently, multidetector volumetric imaging was performed from the thoracic inlet to below the diaphragms following the administration of 80 mL Omnipaque 350 intravenous contrast. No contrast reaction reported Sagittal, coronal, and MIP oblique sagittal reformatted images were obtained on the CT workstation, uploaded to PACS, and reviewed. This CT examination was performed using dose optimization techniques as appropriate, variously including the following: *Automated exposure control *Adjustment of mA and/or kV according to patient size (this includes techniques or standardized protocols for targeted exams where dose is matched to indication/reason for exam; i.e. extremities or head) *Use of iterative reconstruction technique Total exam dose-length product 315 mGy-cm FINDINGS: QUALITY OF STUDY/CONTRAST BOLUS: Satisfactory. PULMONARY ARTERIES: No central or segmental pulmonary emboli. THORACIC AORTA: No aneurysm or dissection. LUNG: There is mild emphysematous both lungs with right upper lobectomy and postsurgical sutures medially and partial lobectomy left upper lobe anterior segment. There is an 11 mm round nodule in the suprahilar region of axial image 19/5 and image 50/12 with adjacent vessels traversing the the lesion. This may represent a intrathoracic or suprahilar lymph node. PLEURA: There is minimal left posterior pleural thickening. MEDIASTINUM: Enlarged right thyroid gland with a small nodule, stable. The heart size is normal. There is no pericardial effusion. Central trachea and the bronchi widely patent. The right thyroid lobe is slightly enlarged. No evidence of septal bowing or right heart strain. CHEST WALL/AXILLA: No axillary or internal mammary lymphadenopathy. OSSEOUS STRUCTURES: No lytic or sclerotic process seen. There is mild rotoscoliosis of dorsal spine. UPPER ABDOMEN: Unremarkable. No reflux of contrast into the hepatic veins to suggest elevated right heart pressures. CT/CT angio chest PE protocol IMPRESSION: No evidence of PE. No evidence of aortic dissection or aneurysm. Left suprahilar nodule measuring 1.1 cm, stable. Bilateral upper lobe surgical changes with hyperinflated lungs but no acute pneumonic process. Right thyroid nodule, stable. VTE: negative
[2021-07-24 13:14] VITALS: BP 146/87; PULSE 84; RESP 18; TEMP 36.3; O2SAT 95; BMI 27.4
--- NOTE | 2021-07-24 15:30 | ECG_ITS ---
Test Reason : DYSPNEA Blood Pressure : / mmHG Vent. Rate : 066 BPM Atrial Rate : 066 BPM P-R Int : 156 ms QRS Dur : 070 ms QT Int : 430 ms P-R-T Axes : 047 -10 037 degrees QTc Int : 450 ms Sinus rhythm with Premature ventricular complexes Otherwise normal ECG When compared with ECG of 04-NOV-2020 15:10, Premature ventricular complexes are now Present Referred By: Viry Patel Electronically Signed By:JOHN RECINOS MD
--- NOTE | 2021-07-24 15:38 | ED.SOB ---
HPI - SOB/Dyspnea General Chief Complaint: Dyspnea Stated Complaint: r rib pain diff beathing Time Seen by Provider: 07/24/21 15:28 Source: patient Mode of arrival: ambulatory Limitations: no limitations History of Present Illness HPI Narrative: 76 y/o female with history of COPD, RUL lung cancer s/p resection July 2019, history of PE on Coumadin x2, LLL lung cancer s/p resection 2020, hx breast cancer s/p chemo/radiation who presents to the ER with worsening SOB, congested cough and need for constant oxygen in the last 3 days. She reports rib pain on the right side below her breast and around her back, she feels like she broke a rib from coughing. She has been taking Mucinex and using her nebulizers Q4 at home with minimal relief. She states at baseline she would be able to take her O2 off to go out to dinner and only use her O2 PRN (Dr. Lopez told her to use 2L 30/10). She says the last 3 days when she takes her O2 off she desaturates to 83% within 1 minute. She denies any fever or chills. No known sick contacts. She is fully vaccinated for COVID-19. MD elicited complaint: shortness of breath Pertinent past history: COPD Onset (ago): day(s) (3) Timing: constant Severity: moderate Exacerbating factors: exertion Relieving factors: oxygen and rest Known history of: COPD and PE Associated symptoms: chest pain, pain with inspiration, cough, sputum production and chest congestion Treatment prior to arrival: oxygen and bronchodilator Related Data Home oxygen amount: 2 liters Home Medications Medication Instructions Recorded Confirmed warfarin 3 mg tablet 3 mg PO DAILY 01/23/20 07/12/21 cholecalciferol (vitamin D3) 50 50 mcg PO DAILY 02/12/20 07/12/21 mcg (2,000 unit) capsule ciclopirox 0.77 % topical cream appl TOPICAL BID 11/18/20 07/12/21 azithromycin 250 mg tablet 250 mg PO .qod tab 04/14/21 07/12/21 cholecalciferol (vitamin D3) 50 50 mcg PO DAILY 06/14/21 07/12/21 mcg (2,000 unit) capsule omega 7-nnn-poy-fish oil 60 mg-90 1 cap PO DAILY 06/14/21 07/12/21 mg-500 mg capsule (Fish Oil) Previous Rx's Medication Instructions Recorded formoterol fumarate 20 mcg/2 mL 2 ml INHALATION BID #60 ml 02/06/20 solution for nebulization (Perforomist) Ventolin HFA 90 mcg/actuation 2 puff INHALATION Q4-6H PRN #18 g 06/08/20 aerosol inhaler (albuterol sulfate) NS ipratropium 0.5 mg-albuterol 3 mg 3 ml INHALATION Q6H PRN #270 ml 03/15/21 (2.5 mg base)/3 mL nebulization soln lorazepam 0.5 mg tablet 0.5 mg PO TID PRN #30 tab 04/22/21 prednisone 20 mg tablet 20 mg PO DAILY #30 tab 07/06/21 Allergies Allergy/AdvReac Type Severity Reaction Status Date / Time No Known Allergies Allergy Verified 07/12/21 14:28 Review of Systems Review of Systems: Constitutional: No Fever, No Chills ENT/Mouth: No sore throat, No Rhinorrhea, No Swallowing Difficulty Cardiovascular: + Chest Pain, + SOB, No Orthopnea, No Edema Respiratory: + Cough, + Sputum, + Wheezing, + dyspnea Gastrointestinal: No Nausea, No Vomiting, No Diarrhea, No abdominal Pain Genitourinary: No Dysuria, No Urinary Frequency, No Hematuria Musculoskeletal: No joint pain, No Myalgias Skin: No Skin Lesions, No rash Neuro: No Weakness, No Numbness, No Dizziness, + Headache Psych: No Anxiety/Panic, No Depression Heme/Lymph: No Bruising, No Lymphadenopathy Endocrine: No Polyuria, No Polydipsia PMFSH Past Medical History Attestation statement: The following information was validated with the patient. Source: unable to obtain Medical History Anxiety Cancer of upper lobe of left lung (~2020) Cancer of upper lobe of right lung (~2019) Chronic bronchitis Closed intertrochanteric fracture with routine healing (~2019) COPD (chronic obstructive pulmonary disease) Current use of anticoagulant therapy (~2011) History of left breast cancer (~2008) History of pulmonary embolism (~2011) Osteoporosis (~2009) Tubular adenoma of colon (~2014) Surgical History History of appendectomy (~09/2012) History of colonoscopy (~07/2014) History of hip surgery (~11/2019) History of left breast biopsy (~03/2009) History of lumpectomy of left breast (~04/2009) History of lung surgery (~07/2019) History of lung surgery (~05/2020) History of tonsillectomy History of tubal ligation Social History Social History Household Members: Children Housing: House Alcohol intake: never Patient Tobacco Use Status: Former Tobacco user Years Smoked: 35pyh - quit 1997 Advance Directives: No Advance Directives Information Provided: No service: No Current occupational status: disabled Physical Exam Vital Signs: Vital Signs: Last Vital Signs Temp 98.3 F 07/24/21 17:05 Pulse 69 07/24/21 17:05 Resp 18 07/24/21 17:05 BP 153/86 H 07/24/21 17:05 Pulse Ox 95 07/24/21 17:05 BMI result Body Mass Index 27.4 Appearance: Alert. Oriented X3. No acute distress. Eyes: Pupils equal, round and reactive to light. ENT: Pharynx normal. Neck: Normal inspection. Neck supple. CVS: Normal heart rate and rhythm. Pulses normal. Respiratory: No respiratory distress. Breath sounds coarse, with diminished at the bases, splinting due to pain Abdomen: Soft and nontender. +BS x4 Skin: Skin warm and dry. Normal skin color. Normal skin turgor. No rashes. Extremities: Trace lower extremity edema, LE cool with 1+ dp pulses bilaterally. Neuro: Oriented X 3. No motor deficit. No sensory deficit. No asterixis, nonfocal. Course Course Course Narrative: 76-year-old female with a history of bilateral lung cancer status post resection x2, COPD, history of PE x2 on lifelong anticoagulation with Coumadin who presents to the ER with SOB, congested cough, increased O2 requirement. On arrival to the ED SpO2 95% on 3L NC, splinting due to right rib pain with Diminished lung sounds at the bilateral bases and diffuse scattered rhonchi throughout. She is not in any respiratory distress. Will plan to check two-view chest x-ray, lab workup including INR to make sure INR is therapeutic. Reevaluation(s) Reevaluation #1: INR 1.9. Her chest x-ray is clear. Will plan to do a CTA to rule out recurrent pulmonary embolism. Her white blood cell count is 15.4, she is chronically on either 10 or 20 mg of prednisone she cannot recall which. She is also on azithromycin for prophylaxis. Given concern for acute bronchitis and respiratory infection will cover with a dose of IV Levaquin now. Anticipate she will require admission given her increased O2 demands and shortness of breath. She is complaining of worsening shortness of breath, time for her neb treatment - DuoNeb ordered. MDM - SOB/Dyspnea Medical Records Attestation: I reviewed the patient's medical records. Lab Data Attestation: I reviewed the patient's lab results. Result diagrams: 07/24/21 16:24 07/24/21 16:24 Labs: Lab Results 07/24/21 07/24/21 07/24/21 Range/Units 16:24 16:24 16:24 WBC 15.4 H (4.8-10.8) X10*3/uL RBC 3.70 L (4.20-5.50) X10*6/uL Hgb 13.1 (12.0-16.0) g/dl Hct 40.3 (37.0-47.0) % MCV 108.9 H (80.0-98.0) fL MCH 35.4 H (27.0-33.0) pg MCHC 32.5 (31.0-35.0) g/dl RDW 14.8 (11.0-16.0) % Plt Count 241 (160-400) X10*3/uL MPV 11.2 (9.4-12.3) fL Immature Gran % (Auto) 0.8 H (0.0-0.4) % Neut % (Auto) 93.9 H (45-73) % Lymph % (Auto) 2.1 L (20-40) % Travis % (Auto) 2.9 (2-11) % Eos % (Auto) 0.2 (0-4) % Baso % (Auto) 0.1 (0-2) % Lymph # (Auto) 0.3 L (1.2-4.9) X10*3/uL Travis # (Auto) 0.4 (0.1-1.2) X10*3/uL Eos # (Auto) 0.0 (0.0-0.4) X10*3/uL Baso # (Auto) 0.0 (0.0-0.2) X10*3/uL Abs Immat Gran (auto) 0.13 H (0.00-0.03) X10*3/uL Absolute Neuts (auto) 14.5 H (2.0-8.3) x10*3/uL Absolute Nucleated RBC 0.000 (0.0-0.012) X10*3/uL Nucleated RBC % (auto) 0.0 (0.0-0.2) /100WBC Smear Tech's Comments VERIFIED PT (9.9-13.0) SEC INR (0.9-1.1) APTT (24.1-38.0) SEC Sodium 141 (135-145) mmol/L Potassium 4.6 (3.3-5.1) mmol/L Chloride 104 (96-108) mmol/L Carbon Dioxide 25 (22-29) mmol/L Anion Gap 17 (12-20) BUN 17 H (9-16) mg/dL Creatinine 0.87 (0.5-1.4) mg/dL Estim Creat Clear Calc 48.1 Estimated GFR > 60 Random Glucose 116 H (60-115) mg/dL Calcium 9.0 (8.4-10.2) mg/dL Magnesium 1.9 (1.6-2.6) mg/dL Total Bilirubin 1.1 H (0.0-1.0) mg/dL Direct Bilirubin 0.3 (0.0-0.5) mg/dL AST 25 D (5-31) U/L ALT 15 (0-31) U/L Alkaline Phosphatase 51 (39-117) U/L Troponin I High Sens 12.8 (<3.5-17.0) ng/L B-Natriuretic Peptide (<100) pg/mL Total Protein 6.0 L (6.5-8.0) g/dL Albumin 3.3 L (3.5-5.0) g/dL COVID-19 ([facility]) (Negative) COVID-19 Clin Com 04/17/22 04/17/22 04/17/22 Range/Units 16:24 16:24 16:59 WBC (4.8-10.8) X10*3/uL RBC (4.20-5.50) X10*6/uL Hgb (12.0-16.0) g/dl Hct (37.0-47.0) % MCV (80.0-98.0) fL MCH (27.0-33.0) pg MCHC (31.0-35.0) g/dl RDW (11.0-16.0) % Plt Count (160-400) X10*3/uL MPV (9.4-12.3) fL Immature Gran % (Auto) (0.0-0.4) % Neut % (Auto) (45-73) % Lymph % (Auto) (20-40) % Travis % (Auto) (2-11) % Eos % (Auto) (0-4) % Baso % (Auto) (0-2) % Lymph # (Auto) (1.2-4.9) X10*3/uL Travis # (Auto) (0.1-1.2) X10*3/uL Eos # (Auto) (0.0-0.4) X10*3/uL Baso # (Auto) (0.0-0.2) X10*3/uL Abs Immat Gran (auto) (0.00-0.03) X10*3/uL Absolute Neuts (auto) (2.0-8.3) x10*3/uL Absolute Nucleated RBC (0.0-0.012) X10*3/uL Nucleated RBC % (auto) (0.0-0.2) /100WBC Smear Tech's Comments PT 22.4 H (9.9-13.0) SEC INR 1.9 H (0.9-1.1) APTT 36.6 (24.1-38.0) SEC Sodium (135-145) mmol/L Potassium (3.3-5.1) mmol/L Chloride (96-108) mmol/L Carbon Dioxide (22-29) mmol/L Anion Gap (12-20) BUN (9-16) mg/dL Creatinine (0.5-1.4) mg/dL Estim Creat Clear Calc Estimated GFR Random Glucose (60-115) mg/dL Calcium (8.4-10.2) mg/dL Magnesium (1.6-2.6) mg/dL Total Bilirubin (0.0-1.0) mg/dL Direct Bilirubin (0.0-0.5) mg/dL AST (5-31) U/L ALT (0-31) U/L Alkaline Phosphatase (39-117) U/L Troponin I High Sens (<3.5-17.0) ng/L B-Natriuretic Peptide 127 H (<100) pg/mL Total Protein (6.5-8.0) g/dL Albumin (3.5-5.0) g/dL COVID-19 ([facility]) Negative (Negative) COVID-19 Clin Com See Note ECG Data Attestation: I personally reviewed and interpreted this ECG as follows: ECG interpretation date: 07/24/21 ECG interpretation time: 17:55 Prior ECG tracings: available for review Interpretation: normal sinus rhythm with PVCs noted, heart rate 66 beats per minute, normal OH interval, no ST segment elevations or depressions. Critical Care Time Critical Care Time Critical Care Time: Yes Total Critical Care Time: 35 Attestation: I have personally provided critical care time exclusive of time spent on separately billable procedures. Time includes review of lab data, radiology results, frequent bedside reassessment, and monitoring for potential decompensation. Intervention performed as documented. Discharge Plan Discharge Clinical Impression: COPD (chronic obstructive pulmonary disease), Acute bronchitis, Rib pain on right side Patient Disposition: Still a Patient Prescriptions: No Action formoterol fumarate [Perforomist] 20 mcg/2 mL solution for nebulization 2 ml inhalation BID Qty: 60 11RF cholecalciferol (vitamin D3) 50 mcg (2,000 unit) capsule 50 mcg PO DAILY 0RF albuterol sulfate [Ventolin HFA] 90 mcg/actuation HFA aerosol inhaler 2 puff inhalation Q4-6H PRN (Reason: shortness of breath or wheezing) Qty: 18 2RF ipratropium-albuterol 0.5 mg-3 mg(2.5 mg base)/3 mL solution for nebulization 3 ml inhalation Q6H PRN (Reason: shortness of breath or wheezing) Qty: 270 3RF lorazepam 0.5 mg tablet 0.5 mg PO TID PRN (Reason: anxiety) Qty: 30 2RF prednisone 20 mg tablet 20 mg PO DAILY Qty: 30 1RF warfarin 3 mg tablet 3 mg PO DAILY 0RF Protocol: Dose Management Condition: Sunday ( One) Dose/Route: 3 mg Instruction: 1 x 3 mg tablet Condition: Sunday Dose/Route: 1.5 mg Instruction: 0.5 x 3 mg tablets Condition: Sunday Dose/Route: 3 mg Instruction: 1 x 3 mg tablet Condition: Sunday Dose/Route: 3 mg Instruction: 1 x 3 mg tablet Condition: Dose/Route: 3 mg Instruction: 1 x 3 mg tablet Condition: Sunday Dose/Route: 3 mg Instruction: 1 x 3 mg tablet Condition: Sunday Dose/Route: 3 mg Instruction: 1 x 3 mg tablet Condition: Sunday ( Two) Dose/Route: 3 mg Instruction: 1 x 3 mg tablet Condition: Sunday Dose/Route: 1.5 mg Instruction: 0.5 x 3 mg tablets Condition: Sunday Dose/Route: 3 mg Instruction: 1 x 3 mg tablet Condition: Sunday Dose/Route: 3 mg Instruction: 1 x 3 mg tablet Condition: Dose/Route: 3 mg Instruction: 1 x 3 mg tablet Condition: Sunday Dose/Route: 3 mg Instruction: 1 x 3 mg tablet Condition: Sunday Dose/Route: 3 mg Instruction: 1 x 3 mg tablet Protocol Text: Adjustment Start Date: Sunday07/12/21 INR Value: 2.5 INR Date: 07/12/21 Recheck Date: 08/02/21 Additional Instructions: INR is in range continue same warfarin dosing balance greens and reds in diet ciclopirox 0.77 % cream topical BID 0RF azithromycin 250 mg tablet 250 mg PO .qod 0RF Rx Instructions: start on day 2 of therapy omega 9-ovz-oez-fish oil [Fish Oil] 60-90-500 mg capsule 1 cap PO DAILY 0RF cholecalciferol (vitamin D3) 50 mcg (2,000 unit) capsule 50 mcg PO DAILY 0RF
[2021-07-24 16:33] LABS: Basophils Percent Auto 0.1 % (0-2); Eosinophils Percent Auto 0.2 % (0-4); Hematocrit 40.3 % (37.0-47.0); Hemoglobin 13.1 g/dl (12.0-16.0); Imm Gran Abs Auto 0.13 X10*3/uL (0.00-0.03); Imm Gran Pct Auto 0.8 % (0.0-0.4); Lymphocytes Absolute Auto 0.3 X10*3/uL (1.2-4.9); Lymphocytes Percent Auto 2.1 % (20-40); MANUAL DIFF FLAG SCAN; Mean Corpuscular HGB Conc 32.5 g/dl (31.0-35.0); Mean Corpuscular Hemoglobin 35.4 pg (27.0-33.0); Mean Corpuscular Volume 108.9 fL (80.0-98.0); Mean Platelet Volume 11.2 fL (9.4-12.3); Monocytes Absolute Auto 0.4 X10*3/uL (0.1-1.2); Monocytes Percent Auto 2.9 % (2-11); Neutrophils Absolute Auto 14.5 x10*3/uL (2.0-8.3); Neutrophils Percent Auto 93.9 % (45-73); Platelet Count 241 X10*3/uL (160-400); Red Cell Distribution Width 14.8 % (11.0-16.0); SCAN SMEAR FLAG 1; White Blood Count 15.4 X10*3/uL (4.8-10.8)
[2021-07-24 16:48] LABS: COVID-19 Test Negative (Negative); IDNOW Serial# 16C4AD1C
[2021-07-24 16:52] LABS: Alanine Aminotransferase 15 U/L (0-31); Albumin Level 3.3 g/dL (3.5-5.0); Alkaline Phosphatase 51 U/L (39-117); Anion Gap 17 (12-20); Aspartate Amino Transferase 25 U/L (5-31); Bilirubin Direct 0.3 mg/dL (0.0-0.5); Bilirubin Total 1.1 mg/dL (0.0-1.0); Blood Urea Nitrogen 17 mg/dL (9-16); Carbon Dioxide 25 mmol/L (22-29); Chloride 104 mmol/L (96-108); Creatinine Clr Calc Pharmacy 48.1; Estimated Glomerular Filt Rate > 60; Glucose Random 116 mg/dL (60-115); Magnesium 1.9 mg/dL (1.6-2.6); Potassium 4.6 mmol/L (3.3-5.1); Sodium 141 mmol/L (135-145)
[2021-07-24 16:54] LABS: Troponin-I High Sensitivity 12.8 ng/L (<3.5-17.0)
[2021-07-24 16:55] LABS: B Type Natriuretic Peptide 127 pg/mL (<100)
[2021-07-24 17:01] LABS: SLIDE REVIEW VERIFIED
[2021-07-24 17:05] VITALS: BP 153/86; PULSE 69; RESP 18; TEMP 36.8; O2SAT 95
[2021-07-24 17:09] LABS: INTERNATIONAL NORM RATIO 1.9 (0.9-1.1); Prothrombin Time 22.4 SEC (9.9-13.0)
[2021-07-24 17:11] LABS: Partial Thromboplastin Time 36.6 SEC (24.1-38.0)
[2021-07-24] MEDS: Albuterol/Iprat 2.5/0.5MG 3 ML AMPUL.NEB INHALE (18:05)
[2021-07-24 18:06] VITALS: PULSE 69; RESP 20; O2SAT 95
[2021-07-24] MEDS: iohexoL 350 MG/ML 100 ML INFUS..BTL IV (18:27)
[2021-07-24] MEDS: levoFLOXacin/D5W 750 MG/150 ML PIGGYBACK 100 MG IV (18:28)
[2021-07-24] MEDS: methylPREDNISolone Sod Succ 125 MG/2 ML VIAL IVPUSH (18:28)
[2021-07-24 18:45] LABS: Procalcitonin 0.03 ng/mL
--- NOTE | 2021-07-24 18:56 | PHA.MEDREC ---
Pharmacy Consult ? Medication Reconciliation Pharmacy has completed the medication reconciliation. Spoke with patient in ED who had a list of her medications with her. She took all her morning medications. She takes warfarin 3 mg on all days except sunday she takes 1.5 mg.
[2021-07-24 19:23] LABS: Appearance Urine CLEAR; Color Urine YELLOW; Glucose Urine UA 100 MG/DL (NEG); Leukocyte Esterase Urine NEG (NEG); Nitrite Urine NEG (NEG); PH 5.5 (5.0-8.0); Urine Blood NEG (NEG); Urine Ketones 5 MG/DL (NEG); Urine Protein NEG (NEG-TRACE)
[2021-07-24] MEDS: HYDROmorphone HCl 2 MG TABLET PO (19:37)
[2021-07-24] MEDS: Morphine Sulfate 2 MG/ML CARTRIDGE IVPUSH (19:37)
[2021-07-24] MEDS: LORazepam 2 MG/ML VIAL 0.5 MG IVPUSH (19:38)
== END 2021-07-24 21:21 | disposition home or self-care (01) ==
PROVIDERS: Physician Assistant; Emergency Provider Emergency Medicine; PCP Internal Medicine
DX: J44.0 Chronic obstructive pulmonary disease with (acute) lower respiratory infection (principal); J20.9 Acute bronchitis, unspecified; R07.81 Pleurodynia; Z85.118 Personal history of other malignant neoplasm of bronchus and lung; Z85.3 Personal history of malignant neoplasm of breast; Z86.711 Personal history of pulmonary embolism; Z79.01 Long term (current) use of anticoagulants; Z92.21 Personal history of antineoplastic chemotherapy; Z92.3 Personal history of irradiation; Z20.822 Contact with and (suspected) exposure to COVID-19
CPT/HCPCS: 36415; 71046; 71275; 80048; 80076; 81003; 83735; 83880; 84145; 84484; 85025; 85610; 85730; 87635; 93005; 94640; 96365; 96375; 99284; 99291; J1956; J2060; J2270; J2930; Q9967

== ENCOUNTER → 2021-08-04 13:57 | Outpatient (BNVA) | payer MEDICARE, SELFPAY | PROVIDERS: PCP Internal Medicine; Visit Provider Internal Medicine | DX: I26.99 Other pulmonary embolism without acute cor pulmonale (principal); Z79.01 Long term (current) use of anticoagulants; Z51.81 Encounter for therapeutic drug level monitoring | CPT/HCPCS: 85610; 99211 ==

== ENCOUNTER 2021-08-19 13:13 | Outpatient (REF) | payer MEDICARE, SELFPAY ==
--- NOTE | ~2021-08-19 | MM_ITS ---
EXAMINATION: MM SCREENING DIGITAL BREAST TOMOSYNTHESIS, BILATERAL CLINICAL INFORMATION: Screening. Asymptomatic. Prior left lumpectomy for breast cancer, 2009. COMPARISON: Mammography: 08/18/2020, 05/23/2019, 07/31/2018, 07/30/2017 TECHNIQUE: Digital breast tomosynthesis is performed in both the craniocaudal and mediolateral oblique views along with computer-aided detection (CAD). Synthesized 2D images are generated from the tomosynthesis. FINDINGS: There are scattered areas of fibroglandular density (ACR BI-RADS breast composition Category b). Parenchymal pattern is similar to prior exams and there is no interval mass or architectural abnormality or abnormal calcifications. Again, there are post therapy changes on the left with reduced breast size and stable scarring posterior central breast. There are scattered bilateral predominantly vascular calcifications. The skin contours are smooth. No significant changes. MM/MM tomosynthesis screening BI IMPRESSION: No mammographic evidence of malignancy. Post therapy changes left breast, stable. ASSESSMENT: BI-RADS 2: Benign RECOMMENDATION: Routine annual mammography screening. This patient's information was entered into a reminder system with a target due date for their next mammogram.
== END 2021-08-19 13:14 | disposition home or self-care (01) ==
LOC: HO.MAMMO 13:13
PROVIDERS: Visit Provider Internal Medicine
DX: Z13.89 Encounter for screening for other disorder (principal)
CPT/HCPCS: 77063; 77067; 85610; 99212

== ENCOUNTER 2021-08-19 15:02 | Outpatient (REF) | payer MEDICARE, SELFPAY ==
[2021-08-19 15:38] LABS: Hematocrit 37.7 % (37.0-47.0); Hemoglobin 12.1 g/dl (12.0-16.0); Mean Corpuscular HGB Conc 32.1 g/dl (31.0-35.0); Mean Corpuscular Hemoglobin 33.8 pg (27.0-33.0); Mean Corpuscular Volume 105.3 fL (80.0-98.0); Mean Platelet Volume 10.4 fL (9.4-12.3); Platelet Count 194 X10*3/uL (160-400); Red Blood Count 3.58 X10*6/uL (4.20-5.50); Red Cell Distribution Width 14.5 % (11.0-16.0); White Blood Count 12.4 X10*3/uL (4.8-10.8)
[2021-08-19 15:51] LABS: Prothrombin Time 71.1 SEC (9.9-13.0)
== END 2021-08-19 15:03 | disposition home or self-care (01) ==
LOC: HO.LAB 15:02
PROVIDERS: Visit Provider Internal Medicine
DX: I26.99 Other pulmonary embolism without acute cor pulmonale (principal); Z12.31 Encounter for screening mammogram for malignant neoplasm of breast; Z51.81 Encounter for therapeutic drug level monitoring; Z79.01 Long term (current) use of anticoagulants
CPT/HCPCS: 36415; 77063; 77067; 85027; 85610; 99212

== ENCOUNTER → 2021-08-22 14:55 | Outpatient (BNVA) | payer MEDICARE, SELFPAY | PROVIDERS: PCP Internal Medicine; Visit Provider Internal Medicine | DX: I26.99 Other pulmonary embolism without acute cor pulmonale (principal); Z79.01 Long term (current) use of anticoagulants; Z51.81 Encounter for therapeutic drug level monitoring | CPT/HCPCS: 85610; 99211 ==

== ENCOUNTER → 2021-08-29 14:35 | Outpatient (BNVA) | payer MEDICARE, SELFPAY | PROVIDERS: PCP Internal Medicine; Visit Provider Internal Medicine | DX: I26.99 Other pulmonary embolism without acute cor pulmonale (principal); Z79.01 Long term (current) use of anticoagulants; Z51.81 Encounter for therapeutic drug level monitoring | CPT/HCPCS: 85610; 99211 ==

== ENCOUNTER → 2021-09-13 14:24 | Outpatient (BNVA) | payer MEDICARE, SELFPAY | PROVIDERS: PCP Internal Medicine; Visit Provider Internal Medicine | DX: J44.9 Chronic obstructive pulmonary disease, unspecified (principal); C34.11 Malignant neoplasm of upper lobe, right bronchus or lung; C34.12 Malignant neoplasm of upper lobe, left bronchus or lung; I48.91 Unspecified atrial fibrillation; F41.9 Anxiety disorder, unspecified; Z79.52 Long term (current) use of systemic steroids; Z79.899 Other long term (current) drug therapy; I26.99 Other pulmonary embolism without acute cor pulmonale; Z51.81 Encounter for therapeutic drug level monitoring; Z79.01 Long term (current) use of anticoagulants | CPT/HCPCS: 85610; 99211; 99212 ==

== ENCOUNTER → 2021-09-30 11:04 | Outpatient (REF) | payer MEDICARE, SELFPAY ==
--- NOTE | ~2021-09-30 | NM_ITS ---
EXAMINATION: NM BONE SCAN OF THE WHOLE BODY CLINICAL INFORMATION: Pleurodynia. Rib pain. History of lung and breast cancer. History of osteoporosis. COMPARISON: CTA chest 07/24/2021 TECHNIQUE: Multiple gamma scintillation camera images of the whole body were performed 3 hours following the intravenous administration of 25 mCi Tc-99m MDP. FINDINGS: In the head, no abnormal activity seen. In the thoracic cage and upper extremities, there is moderate levoscoliosis of lumbar spine. Moderate activity seen at the right T10 costovertebral junction and T9 posterior vertebra likely related to traumatic injury. There is moderate activity seen in the right glenohumeral joint likely related to degenerative arthritis. A fracture cannot be excluded no bony abnormality was seen on the CT chest exam 07/24/2021. Nonspecific mild activity seen in bilateral lateral 8th ribs which corresponds to healing fractures on the CT chest exam In the spine, there is moderate levoscoliosis with no abnormal metallic activity seen within the vertebra. In the pelvis, no abnormal activity seen. In the lower extremities, there is mild increase activity seen in left femoral neck question healing fracture. No other definite bony abnormalities are noted. The urinary bladder and faint visualization of both kidneys are noted. NM/NM bone scan whole body IMPRESSION: Mild activity seen in bilateral lateral eighth ribs corresponding to healing fractures on CTA chest exam 07/24/2021. There is significant increased activity seen in the right T10 costovertebral junction and T9 posterior ribs. This is likely related to recent trauma. Abnormality was not seen on the previous CTA chest exam. However there is significant left facet joint hypertrophy and arthropathy on the left T10 11-12, T10-T11 and T9-T10 facet joints. Mild increased activity left femoral neck likely healing fracture. Moderate levoscoliosis lumbar spine.
== END ==
LOC: HO.NUCMED 11:04
PROVIDERS: Visit Provider Internal Medicine
DX: R07.81 Pleurodynia (principal)
CPT/HCPCS: 78306; A9503

== ENCOUNTER → 2021-10-04 14:59 | Outpatient (BNVA) | payer MEDICARE, SELFPAY | PROVIDERS: PCP Internal Medicine; Visit Provider Internal Medicine | DX: I26.99 Other pulmonary embolism without acute cor pulmonale (principal); Z79.01 Long term (current) use of anticoagulants; Z51.81 Encounter for therapeutic drug level monitoring | CPT/HCPCS: 85610; 99211 ==

== ENCOUNTER → 2021-10-27 14:01 | Outpatient (BNVA) | payer MEDICARE, SELFPAY | PROVIDERS: PCP Internal Medicine; Visit Provider Internal Medicine | DX: I26.99 Other pulmonary embolism without acute cor pulmonale (principal); Z79.01 Long term (current) use of anticoagulants; Z51.81 Encounter for therapeutic drug level monitoring | CPT/HCPCS: 85610; 99211 ==

== ENCOUNTER → 2021-11-08 14:26 | Outpatient (BNVA) | payer MEDICARE, SELFPAY | PROVIDERS: PCP Internal Medicine; Visit Provider Internal Medicine | DX: J44.9 Chronic obstructive pulmonary disease, unspecified (principal); J42 Unspecified chronic bronchitis; C34.11 Malignant neoplasm of upper lobe, right bronchus or lung; C34.12 Malignant neoplasm of upper lobe, left bronchus or lung; F41.9 Anxiety disorder, unspecified | CPT/HCPCS: 99212 ==

== ENCOUNTER → 2021-11-10 14:01 | Outpatient (BNVA) | payer MEDICARE, SELFPAY | PROVIDERS: PCP Internal Medicine; Visit Provider Internal Medicine | DX: I26.99 Other pulmonary embolism without acute cor pulmonale (principal); Z79.01 Long term (current) use of anticoagulants; Z51.81 Encounter for therapeutic drug level monitoring | CPT/HCPCS: 85610; 99211 ==

== ENCOUNTER 2021-11-18 12:55 | Outpatient (REF) | payer MEDICARE, SELFPAY ==
--- NOTE | ~2021-11-18 | CT_ITS ---
EXAMINATION: CT CHEST WITHOUT CONTRAST CLINICAL INFORMATION: Solitary pulmonary nodule COMPARISON: CT chest 05/03/[address] angiogram of 07/24/2021. TECHNIQUE: Multidetector volumetric CT imaging of the chest was done. Axial MIP volume rendering provided. Sagittal and coronal reformatted images were obtained. This CT examination was performed using dose optimization techniques as appropriate, variously including the following: *Automated exposure control *Adjustment of mA and/or kV according to patient size (this includes techniques or standardized protocols for targeted exams where dose is matched to indication/reason for exam; i.e. extremities or head) *Use of iterative reconstruction technique DLP: 155 mGy-cm FINDINGS: NIP WRAPPER: Unremarkable. LUNGS: There are postsurgical changes bilateral upper lobes likely partial lobectomy or wedge resection similar to previous study. Previously described left suprahilar nodule likely is a partial volume averaging with end on vessel or a lymph node. It is unchanged. No additional nodules, mass or consolidation seen. No ground-glass attenuation. Punctate 1 mm calcification seen in left lower lobe on axial image 372/7. MEDIASTINUM: There is mild asymmetrical thyroid lobes, right larger than left, but otherwise unremarkable. The trachea and the bronchi are widely patent. No abnormal size mediastinal or hilar lymph nodes seen. Heart size and the great vessels are normal caliber. There is mild coronary artery calcifications. No pericardial effusion seen. PLEURA: There is no pleural effusion. No pleural mass or thickening. AXILLA: No abnormal axillary lymph nodes seen. There is a 1.9 cm density, left breast, oriented in AP direction. Previously it was directed in oblique view. The chest wall otherwise is unremarkable. UPPER ABDOMEN: Visualized liver, spleen, pancreas and bilateral adrenal glands unremarkable. . OSSEOUS STRUCTURES: No gross bony abnormality seen. There are healed fractures left lateral ribs. There is scoliosis, unchanged. CT/CT chest wo con IMPRESSION: 1. Bilateral upper lobectomy or wedge resection surgical changes are stable. Suprahilar nodule is likely a lymph node or a volume averaging or end on vessel. There are no abnormal-sized pulmonary nodules, mass, consolidation. Punctate 1 mm calcification left lung base and smaller micronodules described. 2. 1.9 cm density left breast is stable. Fleischner guidelines were followed.
== END 2021-11-18 12:56 | disposition home or self-care (01) ==
LOC: HO.CT 12:55
PROVIDERS: PCP Internal Medicine; Visit Provider Surgery
DX: R91.1 Solitary pulmonary nodule (principal)
CPT/HCPCS: 71250

== ENCOUNTER → 2021-11-25 10:36 | Outpatient (BNVA) | payer MEDICARE, SELFPAY | PROVIDERS: PCP Internal Medicine; Visit Provider Surgery | DX: C34.12 Malignant neoplasm of upper lobe, left bronchus or lung (principal); C34.11 Malignant neoplasm of upper lobe, right bronchus or lung; R91.1 Solitary pulmonary nodule | CPT/HCPCS: 99212 ==

== ENCOUNTER → 2021-12-01 13:55 | Outpatient (BNVA) | payer MEDICARE, SELFPAY | PROVIDERS: PCP Internal Medicine; Visit Provider Internal Medicine | DX: I26.99 Other pulmonary embolism without acute cor pulmonale (principal); Z79.01 Long term (current) use of anticoagulants; Z51.81 Encounter for therapeutic drug level monitoring | CPT/HCPCS: 85610; 99211 ==

== ENCOUNTER → 2021-12-22 14:17 | Outpatient (BNVA) | payer MEDICARE, SELFPAY | PROVIDERS: PCP Internal Medicine; Visit Provider Internal Medicine | DX: I26.99 Other pulmonary embolism without acute cor pulmonale (principal); Z79.01 Long term (current) use of anticoagulants; Z51.81 Encounter for therapeutic drug level monitoring | CPT/HCPCS: 85610; 99211 ==

== ENCOUNTER → 2022-01-10 14:23 | Outpatient (BNVA) | payer MEDICARE, SELFPAY | PROVIDERS: PCP Internal Medicine; Visit Provider Internal Medicine | DX: J44.1 Chronic obstructive pulmonary disease with (acute) exacerbation (principal); R91.1 Solitary pulmonary nodule; C34.11 Malignant neoplasm of upper lobe, right bronchus or lung; C34.12 Malignant neoplasm of upper lobe, left bronchus or lung; F41.9 Anxiety disorder, unspecified | CPT/HCPCS: 99212 ==

== ENCOUNTER → 2022-01-12 14:21 | Outpatient (BNVA) | payer MEDICARE, SELFPAY | PROVIDERS: PCP Internal Medicine; Visit Provider Internal Medicine | DX: I26.99 Other pulmonary embolism without acute cor pulmonale (principal); Z51.81 Encounter for therapeutic drug level monitoring; Z79.01 Long term (current) use of anticoagulants | CPT/HCPCS: 85610; 99211 ==

== ENCOUNTER → 2022-01-19 14:27 | Outpatient (BNVA) | payer MEDICARE, SELFPAY | PROVIDERS: PCP Internal Medicine; Visit Provider Internal Medicine | DX: I26.99 Other pulmonary embolism without acute cor pulmonale (principal); Z79.01 Long term (current) use of anticoagulants; Z51.81 Encounter for therapeutic drug level monitoring | CPT/HCPCS: 85610; 99211 ==

== ENCOUNTER → 2022-01-24 14:45 | Outpatient (BNVA) | payer MEDICARE, SELFPAY | PROVIDERS: PCP Internal Medicine; Visit Provider Internal Medicine | DX: I26.99 Other pulmonary embolism without acute cor pulmonale (principal); Z79.01 Long term (current) use of anticoagulants; Z51.81 Encounter for therapeutic drug level monitoring | CPT/HCPCS: 85610; 99211 ==

== ENCOUNTER 2022-01-31 10:37 | Emergency (ER) | payer MEDICARE, SELFPAY ==
[2022-01-31] VITALS (7 sets, daily range): BP systolic 140–203; BP diastolic 11–153; PULSE 76–83; RESP 18–22; TEMP 36.6; O2SAT 96–100; BMI 28.1
--- NOTE | ~2022-01-31 | XR_ITS ---
EXAMINATION: XR LUMBOSACRAL SPINE CLINICAL INFORMATION: Back pain. COMPARISON: None TECHNIQUE: Three views of the lumbosacral spine. FINDINGS: There is an approximate 50 degree thoracolumbar levoscoliosis with apex at L2. Moderate to severe multilevel degenerative changes are seen. There is generalized osteopenia. No overt acute fracture. The soft tissues are unremarkable. Moderate to severe atherosclerosis is noted in the abdominal aorta and iliac vessels. Surgical clips overlie the right hemipelvis. XR/XR lumbar spine 2-3V IMPRESSION: Thoracolumbar levoscoliosis, generalized osteopenia and multilevel degenerative changes without acute abnormality.
--- NOTE | ~2022-01-31 | CT_ITS ---
EXAMINATION: NONCONTRAST HEAD CT NONCONTRAST CERVICAL SPINE CT INDICATION INFORMATION: Trauma COMPARISON: PET/CT dated 08/19/2014 TECHNIQUE: Separate noncontrast CT examinations of the head and cervical spine were performed. Coronal and sagittal images were created for each examination at the technologist workstation. This CT examination was performed using dose optimization techniques as appropriate, variously including the following: *Automated exposure control *Adjustment of mA and/or kV according to patient size (this includes techniques or standardized protocols for targeted exams where dose is matched to indication/reason for exam; i.e. extremities or head) *Use of iterative reconstruction technique DLP: 1012 mGy-cm FINDINGS: Head: There is no evidence of acute intracranial hemorrhage or territorial infarction. No abnormal mass effect or midline shift is seen. Benson to white matter differentiation is well preserved. No extra-axial fluid collections are identified. No hydrocephalus. No significant volume loss. Patchy periventricular and deep white matter hypoattenuation is consistent with moderate small vessel ischemic changes. No acute osseous or soft tissue abnormality. The mastoid air cells and visualized portions of the paranasal sinuses are well aerated. Cervical spine: There is anatomic alignment of the vertebral bodies and posterior elements. The atlantoaxial and atlantooccipital articulations are intact. Vertebral body heights maintained. Moderate loss of disc space height at C4-C5, C5-C6 and C6-C7 with accompanying endplate osteophytes. Facet arthropathy present throughout the cervical spine, worse on the left. No evidence of acute fracture. No prevertebral soft tissue swelling. Postsurgical changes at the lung apices bilaterally. There is a 2.0 cm nodule within the right thyroid. CT/CT cervical spine wo IV con IMPRESSION: * No acute intracranial bleed or territorial infarction. * No acute fracture or malalignment of the cervical spine. * Incidental 2.0 cm nodule right thyroid gland. This was not present in 2015. Recommend dedicated thyroid ultrasound on a nonemergent basis.
--- NOTE | 2022-01-31 11:16 | ED.GENADULT ---
HPI - General Adult General Chief complaint: Fall Stated complaint: l side/neck pain,hit head Time Seen by Provider: 01/31/22 11:16 Source: patient and EMS Mode of arrival: EMS Limitations: no limitations History of Present Illness HPI narrative: Patient is a 77 year old assigned female at with a history of lung cancer, COPD, and anti-coagulant use presenting to the emergency department today with neck pain after a fall. Patient states that she tripped and fell and now her neck hurts. Patient states that she always has left leg, left hip, and low back pain / weakness and is concerned it might be worse now. Patient denies hitting her head with the fall. Patient denies any loss of consciousness. Patient denies any dizziness, lightheadedness, abdominal pain, nausea, vomiting, fever, chills, blurry vision, double vision, loss of vision, chest pain, difficulty breathing, shortness of breath, back pain, night sweats, pain with urination, increased urinary frequency, increased urinary urgency, blood in her urine or stool, syncope or a near syncopal episode, bowel incontinence, bladder incontinence, bowel retention, bladder retention, or any other complaints at this time. Onset (ago): hour(s) Location: neck Radiation: non-radiation Severity: mild Severity scale (1-10): 3 Quality: dull Relieving factors: none Exacerbating factors: none Associated symptoms: denies other symptoms Treatments prior to arrival: none Related Data Home Medications Medication Instructions Recorded Confirmed cholecalciferol (vitamin D3) 50 50 mcg PO DAILY 06/14/21 01/24/22 mcg (2,000 unit) capsule omega 5-gun-eye-fish oil 60 mg-90 1 cap PO DAILY 06/14/21 01/24/22 mg-500 mg capsule (Fish Oil) warfarin 3 mg tablet 1.5 mg PO MO@1800 07/24/21 01/24/22 warfarin 3 mg tablet (Jantoven) 3 mg PO SUTUWETHFRSA@1800 07/24/21 01/24/22 Previous Rx's Medication Instructions Recorded formoterol fumarate 20 mcg/2 mL 2 ml inhalation BID #60 mL 02/05/ solution for nebulization (Perforomist) Ventolin HFA 90 mcg/actuation 2 puff inhalation Q4-6H PRN 09/27/21 aerosol inhaler (albuterol sulfate) shortness of breath or wheezing #18 grams ipratropium 0.5 mg-albuterol 3 mg 1 ml inhalation Q6H PRN for 12/06/21 (2.5 mg base)/3 mL nebulization wheezing #270 mL soln prednisone 20 mg tablet 20 mg PO DAILY #30 tabs 01/09/22 azithromycin 250 mg tablet 250 mg PO .every other day #90 tabs 01/19/22 lorazepam 0.5 mg tablet 0.5 mg PO TID PRN anxiety/rESP. 01/26/22 DISTRESS #45 tabs Allergies Allergy/AdvReac Type Severity Reaction Status Date / Time No Known Allergies Allergy Verified 01/24/22 14:47 Review of Systems Constitutional: Constitutional: Reports no additional constitutional complaints, Denies chills, Denies fever(s) and Denies night sweats Eyes: Eyes: Reports no additional eye complaints, Denies blurry vision, Denies change in vision, Denies diplopia, Denies eye discharge, Denies loss of vision and Denies eye pain ENT: Denies dizziness and Reports neck pain Cardiovascular: Cardiovascular: Reports no additional cardiovascular complaints, Denies chest pain, Denies lightheadedness, Denies Loss of Consciousness and Denies dyspnea Respiratory: Respiratory: Reports no additional respiratory complaints and Denies dyspnea Gastrointestinal: Gastrointestinal: Reports no additional gastrointestinal complaints, Denies abdominal pain, Denies melena, Denies hematochezia, Denies change in bowel habits and Denies change in stool character Genitourinary: Genitourinary: Denies hematuria, Denies urinary frequency, Denies dysuria, Denies urinary incontinence, Denies urinary hesitancy and Denies urinary urgency Musculoskeletal: Musculoskeletal: Reports no additional musculoskeletal complaints, Reports neck pain, Denies numbness and Denies tingling Neurologic: Denies dizziness, Denies loss of vision, Denies numbness and Denies tingling Psychiatric: Psychiatric: Reports no additional psychiatric complaints Endocrine: Endocrine: Reports no additional endocrine complaints Hematologic/Lymphatic: Hematologic/Lymphatic: Reports no additional hematologic/lymphatic complaints Allergic/Immunologic: Allergic/Immunologic: Reports no additional allergic/immunologic complaints PMFSH Past Medical History Attestation statement: The following information was validated with the patient. Source: old records reviewed Medical History Anxiety Cancer of upper lobe of left lung (~2020) Cancer of upper lobe of right lung (~2019) Chronic bronchitis Closed intertrochanteric fracture with routine healing (~2019) COPD (chronic obstructive pulmonary disease) Current use of anticoagulant therapy (~2011) History of left breast cancer (~2008) History of pulmonary embolism (~2011) Osteoporosis (~2009) Tubular adenoma of colon (~2014) Surgical History History of appendectomy (~09/2012) History of colonoscopy (~07/2014) History of hip surgery (~11/2019) History of left breast biopsy (~03/2009) History of lumpectomy of left breast (~04/2009) History of lung surgery (~07/2019) History of lung surgery (~05/2020) History of tonsillectomy History of tubal ligation Social History Social History Household Members: Children Housing: House Alcohol intake: never Patient Tobacco Use Status: Former Tobacco user Years Smoked: 35pyh - quit 1997 Advance Directives: No service: No Current occupational status: disabled Physical Exam ED Vital Signs: Vital Signs - 24 hr 01/31/22 11:16 01/31/22 12:25 01/31/22 13:17 Temperature 97.9 F Pulse Rate 81 80 83 Respiratory Rate 22 H 18 Blood Pressure 203/153 H 192/11 H Pulse Oximetry 100 Oxygen Delivery Method Nasal Cannula Oxygen Flow Rate 01/31/22 13:26 01/31/22 14:43 Temperature Pulse Rate 78 78 Respiratory Rate 20 Blood Pressure 144/100 H 162/103 H Pulse Oximetry 99 98 Oxygen Delivery Method Nasal Cannula Room Air Oxygen Flow Rate 2 BMI result Body Mass Index 28.1 Const General: cooperative, no acute distress, alert and awake Nutritional Appearance: well nourished Orientation/consciousness: patient oriented x3 Limitations: no limitations HENMT Head: Yes normal to inspection and Yes atraumatic Ears: hearing grossly normal bilaterally and external ears normal General nose exam: Normal external nose present, no nasal discharge noted and no epistaxis Face and sinus: Yes normal facial exam, No abrasion and No laceration Mouth: Normal oral and palatal mucosa present, no drooling and no muffled voice Eyes General: appearance normal, both eyes and all related structures Periorbital: periorbital findings normal Eyelids: Yes eyelids normal Conjunctivae: conjunctivae normal Pupils: Equal, round and reactive pupils present EOM: EOMs intact bilaterally Neck Neck: Yes normal visual inspection, Yes full ROM and Yes no lymphadenopathy Chest Chest palpation & inspection: normal inspection of the chest Resp Effort & Inspection: normal respiratory effort and able to speak in complete sentences Auscultation: clear to auscultation bilaterally Cardio Rate: regular rate Rhythm: regular rhythm GI Inspection: Yes normal to inspection Neuro General: patient oriented x3 and moves all extremities Cranial nerves: Yes Equal, round and reactive pupils present Cognition (Neuro): normal cognition Motor exam (neuro): 5/5 motor strength present throughout Sensory Exam: Normal double simultaneous stimulation for sensation Coordination: [id number] test normal Extrem General: Yes normal to inspection, Yes full ROM and Yes capillary refill normal Psych Appearance: grossly normal Mental Status: mental status grossly normal Affect: normal affect Attitude: cooperative Thought process: Normal thought process present Thought content: Normal thought content present Insight: Good insight present (Psych) Medical Decision Making [facility] Narrative Medical decision making narrative: Patient is a 77 year old assigned female at with a history of COPD and lung cancer presenting to the emergency department today after a trip and fall. Patient's physical exam was unremarkable. Patient's blood work showed a troponin of 25.9 with a repeat of 37.0 which is less than a 50% delta. Patient's EKG was unremarkable. Patient's chest and lumbar spine x-rays showed no acute process. Patient's CT head, chest, and c-spine showed no acute process. Patient's neck pain resolved while in the department. I explained my physical exam findings as well as all test results to the patient. I answered all questions asked by the patient. I stressed the importance of the patient taking his medication as prescribed. I stressed the importance of the patient following up with her primary care provider. I stressed the importance of the patient returning to the emergency department immediately if her symptoms were to worsen or if she were to develop any dizziness, shortness of breath, difficulty breathing, chest pain, blurry vision, loss of vision, nausea, vomiting, abdominal pain, fever, chills, back pain, or any other complaints. Patient verbalized agreement and understanding with this treatment plan and discharge. Medical Records Medical records reviewed: Yes I reviewed the patient's medical records. Lab Data Lab results reviewed: Yes I reviewed the patient's lab results. Result diagrams: 01/31/22 12:04 01/31/22 12:04 Labs: Lab Results 01/31/22 01/31/22 01/31/22 Range/Units 12:04 12:04 12:04 WBC 11.6 H (4.8-10.8) X10*3/uL RBC 3.40 L (4.20-5.50) X10*6/uL Hgb 11.4 L (12.0-16.0) g/dl Hct 35.0 L (37.0-47.0) % MCV 102.9 H (80.0-98.0) fL MCH 33.5 H (27.0-33.0) pg MCHC 32.6 (31.0-35.0) g/dl RDW 14.5 (11.0-16.0) % Plt Count 162 (160-400) X10*3/uL MPV 10.3 (9.4-12.3) fL Immature Gran % (Auto) 0.7 H (0.0-0.4) % Neut % (Auto) 85.0 H (45-73) % Lymph % (Auto) 5.5 L (20-40) % [place] % (Auto) 7.7 (2-11) % Eos % (Auto) 0.9 (0-4) % Baso % (Auto) 0.2 (0-2) % Lymph # (Auto) 0.6 L (1.2-4.9) X10*3/uL [place] # (Auto) 0.9 (0.1-1.2) X10*3/uL Eos # (Auto) 0.1 (0.0-0.4) X10*3/uL Baso # (Auto) 0.0 (0.0-0.2) X10*3/uL Abs Immat Gran (auto) 0.08 H (0.00-0.03) X10*3/uL Absolute Neuts (auto) 9.9 H (2.0-8.3) x10*3/uL Absolute Nucleated RBC 0.000 (0.0-0.012) X10*3/uL Nucleated RBC % (auto) 0.0 (0.0-0.2) /100WBC PT (10.0-13.1) SEC INR (0.9-1.1) APTT (26.0-36.4) SEC Sodium 141 (135-145) mmol/L Potassium 4.0 (3.3-5.1) mmol/L Chloride 101 (96-108) mmol/L Carbon Dioxide 28 (22-29) mmol/L Anion Gap 16 (12-20) BUN 20 H (9-16) mg/dL Creatinine 1.25 (0.5-1.4) mg/dL Estim Creat Clear Calc 33.3 Estimated GFR 41 Random Glucose 92 (60-115) mg/dL Calcium 8.7 (8.4-10.2) mg/dL Magnesium 1.8 (1.6-2.6) mg/dL Total Bilirubin 0.8 (0.0-1.0) mg/dL AST 16 (5-31) U/L ALT 11 (0-31) U/L Alkaline Phosphatase 45 (39-117) U/L Total Creatine Kinase 48 (26-140) U/L Troponin I High Sens 25.9 H D (<3.5-17.0) ng/L Total Protein 5.0 L (6.5-8.0) g/dL Albumin 3.1 L (3.5-5.0) g/dL COVID-19 (CONSTANZA) (Negative) COVID-19 Clin Com 01/31/22 01/31/22 01/31/22 Range/Units 12:04 12:04 14:31 WBC (4.8-10.8) X10*3/uL RBC (4.20-5.50) X10*6/uL Hgb (12.0-16.0) g/dl Hct (37.0-47.0) % MCV (80.0-98.0) fL MCH (27.0-33.0) pg MCHC (31.0-35.0) g/dl RDW (11.0-16.0) % Plt Count (160-400) X10*3/uL MPV (9.4-12.3) fL Immature Gran % (Auto) (0.0-0.4) % Neut % (Auto) (45-73) % Lymph % (Auto) (20-40) % [place] % (Auto) (2-11) % Eos % (Auto) (0-4) % Baso % (Auto) (0-2) % Lymph # (Auto) (1.2-4.9) X10*3/uL [place] # (Auto) (0.1-1.2) X10*3/uL Eos # (Auto) (0.0-0.4) X10*3/uL Baso # (Auto) (0.0-0.2) X10*3/uL Abs Immat Gran (auto) (0.00-0.03) X10*3/uL Absolute Neuts (auto) (2.0-8.3) x10*3/uL Absolute Nucleated RBC (0.0-0.012) X10*3/uL Nucleated RBC % (auto) (0.0-0.2) /100WBC PT 20.2 H (10.0-13.1) SEC INR 1.7 H D (0.9-1.1) APTT 31.9 (26.0-36.4) SEC Sodium (135-145) mmol/L Potassium (3.3-5.1) mmol/L Chloride (96-108) mmol/L Carbon Dioxide (22-29) mmol/L Anion Gap (12-20) BUN (9-16) mg/dL Creatinine (0.5-1.4) mg/dL Estim Creat Clear Calc Estimated GFR Random Glucose (60-115) mg/dL Calcium (8.4-10.2) mg/dL Magnesium (1.6-2.6) mg/dL Total Bilirubin (0.0-1.0) mg/dL AST (5-31) U/L ALT (0-31) U/L Alkaline Phosphatase (39-117) U/L Total Creatine Kinase (26-140) U/L Troponin I High Sens 37.0 H (<3.5-17.0) ng/L Total Protein (6.5-8.0) g/dL Albumin (3.5-5.0) g/dL COVID-19 (CONSTANZA) Negative (Negative) COVID-19 Clin Com See Note Imaging Data Lumbar spine x-ray: Attestation: I personally reviewed and interpreted this imaging study as follows: My impression: No acute process. Radiologist's impression: EXAMINATION: XR LUMBOSACRAL SPINE CLINICAL INFORMATION: Back pain. COMPARISON: None TECHNIQUE: Three views of the lumbosacral spine. FINDINGS: There is an approximate 50 degree thoracolumbar levoscoliosis with apex at L2. Moderate to severe multilevel degenerative changes are seen. There is generalized osteopenia. No overt acute fracture. The soft tissues are unremarkable. Moderate to severe atherosclerosis is noted in the abdominal aorta and iliac vessels. Surgical clips overlie the right hemipelvis. XR/XR lumbar spine 2-3V IMPRESSION: Thoracolumbar levoscoliosis, generalized osteopenia and multilevel degenerative changes without acute abnormality. Dictated By: Emiliano Jacques MD Signed By: Electronically signed by Emiliano Jacques MD 01/31/[address] scan - head and C-Spine: Attestation: I personally reviewed and interpreted this imaging study as follows: My impression: No acute process. Radiologist's impression: EXAMINATION: NONCONTRAST HEAD CT NONCONTRAST CERVICAL SPINE CT INDICATION INFORMATION: Trauma COMPARISON: PET/CT dated 08/19/2014 TECHNIQUE: Separate noncontrast CT examinations of the head and cervical spine were performed. Coronal and sagittal images were created for each examination at the technologist workstation. This CT examination was performed using dose optimization techniques as appropriate, variously including the following: *Automated exposure control *Adjustment of mA and/or kV according to patient size (this includes techniques or standardized protocols for targeted exams where dose is matched to indication/reason for exam; i.e. extremities or head) *Use of iterative reconstruction technique DLP: 1012 mGy-cm FINDINGS: Head: There is no evidence of acute intracranial hemorrhage or territorial infarction. No abnormal mass effect or midline shift is seen. Benson to white matter differentiation is well preserved. No extra-axial fluid collections are identified. No hydrocephalus. No significant volume loss. Patchy periventricular and deep white matter hypoattenuation is consistent with moderate small vessel ischemic changes. No acute osseous or soft tissue abnormality. The mastoid air cells and visualized portions of the paranasal sinuses are well aerated. Cervical spine: There is anatomic alignment of the vertebral bodies and posterior elements. The atlantoaxial and atlantooccipital articulations are intact. Vertebral body heights maintained. Moderate loss of disc space height at C4-C5, C5-C6 and C6-C7 with accompanying endplate osteophytes. Facet arthropathy present throughout the cervical spine, worse on the left. No evidence of acute fracture. No prevertebral soft tissue swelling. Postsurgical changes at the lung apices bilaterally. There is a 2.0 cm nodule within the right thyroid. CT/CT head/brain wo IV con IMPRESSION: *? No acute intracranial bleed or territorial infarction. *? No acute fracture or malalignment of the cervical spine. *? Incidental 2.0 cm nodule right thyroid gland. This was not present in 2015. Recommend dedicated thyroid ultrasound on a nonemergent basis. Dictated By: Raul Siu MD Signed By: Electronically signed by Raul Siu MD 01/31/[address] scan - chest: Attestation: I personally reviewed and interpreted this imaging study as follows: My impression: No acute process. Radiologist's impression: EXAMINATION: CT CHEST WITHOUT CONTRAST CLINICAL INFORMATION: Solitary pulmonary nodule? COMPARISON: CT chest 05/03/[address] angiogram of 07/24/2021. TECHNIQUE: Multidetector volumetric CT imaging of the chest was done. Axial MIP volume rendering provided. Sagittal and coronal reformatted images were obtained.? This CT examination was performed using dose optimization techniques as appropriate, variously including the following: *Automated exposure control *Adjustment of mA and/or kV according to patient size (this includes techniques or standardized protocols for targeted exams where dose is matched to indication/reason for exam; i.e. extremities or head) *Use of iterative reconstruction technique DLP: 155 mGy-cm FINDINGS: WHITE SOURER: Unremarkable. LUNGS: There are postsurgical changes bilateral upper lobes likely partial lobectomy or wedge resection similar to previous study. Previously described left suprahilar nodule likely is a partial volume averaging with end on? vessel or a lymph node. It is unchanged. No additional nodules, mass or consolidation seen. No ground-glass attenuation. Punctate 1 mm calcification seen in left lower lobe on axial image 372/7. MEDIASTINUM: There is mild asymmetrical thyroid lobes, right larger than left, but otherwise unremarkable. The trachea and the bronchi are widely patent. No abnormal size mediastinal or hilar lymph nodes seen. Heart size and the great vessels are normal caliber. There is mild coronary artery calcifications. No pericardial effusion seen.? PLEURA: There is no pleural effusion. No pleural mass or thickening.? AXILLA: No abnormal axillary lymph nodes seen. There is a 1.9 cm density, left breast, oriented in AP direction. Previously it was directed in oblique view. The chest wall otherwise is unremarkable.? UPPER ABDOMEN: Visualized liver, spleen, pancreas and bilateral adrenal glands unremarkable. .? OSSEOUS STRUCTURES: No gross bony abnormality seen. There are healed fractures left lateral ribs. There is scoliosis, unchanged.? CT/CT chest wo con IMPRESSION: 1. Bilateral upper lobectomy or wedge resection surgical changes are stable. Suprahilar nodule is likely a lymph node or a volume averaging or end on vessel. There are no abnormal-sized pulmonary nodules, mass, consolidation. Punctate 1 mm calcification left lung base and smaller micronodules described. ? 2. 1.9 cm density left breast is stable. ? Fleischner guidelines were followed. Dictated By: aMximino Hummel MD Signed By: Electronically signed by Maximino Hummel MD 11/21/21 1611 ECG Data Attestation: I personally reviewed and interpreted this ECG as follows: Prior ECG tracings: available for review Interpretation: Vent. Rate: 082 BPM ? ? Atrial Rate: 082 BPM P-R Int: 162 ms? QRS Dur: 072 ms QT Int: 408 ms ? ? ? P-R-T Axes: 054 -12 031 degrees QTc Int: 476 ms ? Sinus rhythm with Premature atrial complexes with Aberrant conduction Minimal voltage criteria for LVH, may be normal variant ( R in aVL ) Left axis deviation Nonspecific ST abnormality Lateral leads Abnormal ECG When compared with ECG of 24-JUL-2021 16:40, Premature ventricular complexes are no longer Present Aberrant conduction is now Present ? Electronically Signed By:CAITIE WHITE MD Dictated By: Leonardo White MD Signed By: Electronically signed by Leonardo White MD 01/31/22 1219 Discharge Plan Discharge Clinical Impression: Fall, Sciatica Patient Disposition: Home, Self-Care Instructions: Fall Prevention for Older Adults (ED) Additional Instructions: Follow up with your primary care provider and a neurologist. Return to the emergency department immediately if your symptoms worsen or if you develop any dizziness, shortness of breath, difficulty breathing, chest pain, blurry vision, loss of vision, nausea, vomiting, abdominal pain, fever, chills, back pain, or any other complaints. Prescriptions: No Action formoterol fumarate [Perforomist] 20 mcg/2 mL solution for nebulization 2 ml inhalation BID Qty: 60 11RF albuterol sulfate [Ventolin HFA] 90 mcg/actuation HFA aerosol inhaler 2 puff inhalation Q4-6H PRN (Reason: shortness of breath or wheezing) Qty: 18 2RF ipratropium-albuterol 0.5 mg-3 mg(2.5 mg base)/3 mL solution for nebulization 1 ml inhalation Q6H PRN (Reason: for wheezing) Qty: 270 3RF prednisone 20 mg tablet 20 mg PO DAILY Qty: 30 1RF lorazepam 0.5 mg tablet 0.5 mg PO TID PRN (Reason: anxiety/rESP. DISTRESS) Qty: 45 3RF warfarin [Jantoven] 3 mg tablet 3 mg PO SUTUWETHFRSA@1800 Protocol: Dose Management Condition: Sunday (Week One) Dose/Route: 3 mg Instruction: 1 x 3 mg tablet Condition: Sunday Dose/Route: 3 mg Instruction: 1 x 3 mg tablet Condition: Sunday Dose/Route: 3 mg Instruction: 1 x 3 mg tablet Condition: Sunday Dose/Route: 1.5 mg Instruction: 0.5 x 3 mg tablets Condition: Dose/Route: 3 mg Instruction: 1 x 3 mg tablet Condition: Sunday Dose/Route: 3 mg Instruction: 1 x 3 mg tablet Condition: Sunday Dose/Route: 3 mg Instruction: 1 x 3 mg tablet Condition: Sunday (Week Two) Dose/Route: 3 mg Instruction: 1 x 3 mg tablet Condition: Sunday Dose/Route: 3 mg Instruction: 1 x 3 mg tablet Condition: Sunday Dose/Route: 3 mg Instruction: 1 x 3 mg tablet Condition: Sunday Dose/Route: 1.5 mg Instruction: 0.5 x 3 mg tablets Condition: Dose/Route: 3 mg Instruction: 1 x 3 mg tablet Condition: Sunday Dose/Route: 3 mg Instruction: 1 x 3 mg tablet Condition: Sunday Dose/Route: 3 mg Instruction: 1 x 3 mg tablet Protocol Text: Adjustment Start Date: Sunday01/24/22 INR Value: 2.5 INR Date: 01/24/22 Recheck Date: 02/07/22 Additional Instructions: INR is PERFECT!! continue usual dosing balance greens and reds in diet Rx Instructions: 3 MG ALL DAYS EXCEPT SUNDAY 1.5 MG warfarin 3 mg Tablet 1.5 mg PO MO@1800 Protocol: Dose Management Condition: Sunday (Week One) Dose/Route: 3 mg Instruction: 1 x 3 mg tablet Condition: Sunday Dose/Route: 3 mg Instruction: 1 x 3 mg tablet Condition: Sunday Dose/Route: 3 mg Instruction: 1 x 3 mg tablet Condition: Sunday Dose/Route: 1.5 mg Instruction: 0.5 x 3 mg tablets Condition: Dose/Route: 3 mg Instruction: 1 x 3 mg tablet Condition: Sunday Dose/Route: 3 mg Instruction: 1 x 3 mg tablet Condition: Sunday Dose/Route: 3 mg Instruction: 1 x 3 mg tablet Condition: Sunday ( Two) Dose/Route: 3 mg Instruction: 1 x 3 mg tablet Condition: Sunday Dose/Route: 3 mg Instruction: 1 x 3 mg tablet Condition: Sunday Dose/Route: 3 mg Instruction: 1 x 3 mg tablet Condition: Sunday Dose/Route: 1.5 mg Instruction: 0.5 x 3 mg tablets Condition: Dose/Route: 3 mg Instruction: 1 x 3 mg tablet Condition: Sunday Dose/Route: 3 mg Instruction: 1 x 3 mg tablet Condition: Sunday Dose/Route: 3 mg Instruction: 1 x 3 mg tablet Protocol Text: Adjustment Start Date: Sunday01/24/22 INR Value: 2.5 INR Date: 01/24/22 Recheck Date: 02/07/22 Additional Instructions: INR is PERFECT!! continue usual dosing balance greens and reds in diet Rx Instructions: 3 MG ALL DAYS EXCEPT SUNDAY 1.5 MG azithromycin 250 mg tablet 250 mg PO .every other day Qty: 90 3RF omega 7-bvi-xrx-fish oil [Fish Oil] 60-90-500 mg capsule 1 cap PO DAILY cholecalciferol (vitamin D3) 50 mcg (2,000 unit) capsule 50 mcg PO DAILY Referrals: Angel Montiel MD [Primary Care Provider] - Print Language: Georgian
--- NOTE | 2022-01-31 11:40 | ECG_ITS ---
Test Reason : weakness Blood Pressure : / mmHG Vent. Rate : 082 BPM Atrial Rate : 082 BPM P-R Int : 162 ms QRS Dur : 072 ms QT Int : 408 ms P-R-T Axes : 054 -12 031 degrees QTc Int : 476 ms Sinus rhythm with Premature atrial complexes with Aberrant conduction Minimal voltage criteria for LVH, may be normal variant ( R in aVL ) Left axis deviation Nonspecific ST abnormality Lateral leads Abnormal ECG When compared with ECG of 24-JUL-2021 16:40, Premature ventricular complexes are no longer Present Aberrant conduction is now Present Referred By: Jennifer Dao Electronically Signed By:CAITIE WHITE MD
[2022-01-31 12:08] LABS: MANUAL DIFF FLAG NO
[2022-01-31 12:10] LABS: Basophils Percent Auto 0.2 % (0-2); Eosinophils Absolute Auto 0.1 X10*3/uL (0.0-0.4); Eosinophils Percent Auto 0.9 % (0-4); Hemoglobin 11.4 g/dl (12.0-16.0); Imm Gran Abs Auto 0.08 X10*3/uL (0.00-0.03); Imm Gran Pct Auto 0.7 % (0.0-0.4); Lymphocytes Absolute Auto 0.6 X10*3/uL (1.2-4.9); Lymphocytes Percent Auto 5.5 % (20-40); Mean Corpuscular HGB Conc 32.6 g/dl (31.0-35.0); Mean Corpuscular Hemoglobin 33.5 pg (27.0-33.0); Mean Corpuscular Volume 102.9 fL (80.0-98.0); Mean Platelet Volume 10.3 fL (9.4-12.3); Monocytes Absolute Auto 0.9 X10*3/uL (0.1-1.2); Monocytes Percent Auto 7.7 % (2-11); Neutrophils Absolute Auto 9.9 x10*3/uL (2.0-8.3); Platelet Count 162 X10*3/uL (160-400); Red Cell Distribution Width 14.5 % (11.0-16.0); White Blood Count 11.6 X10*3/uL (4.8-10.8)
[2022-01-31 12:21] LABS: INTERNATIONAL NORM RATIO 1.7 (0.9-1.1); Prothrombin Time 20.2 SEC (10.0-13.1)
[2022-01-31 12:24] LABS: Partial Thromboplastin Time 31.9 SEC (26.0-36.4)
[2022-01-31 12:28] LABS: COVID-19 Test Negative (Negative); IDNOW Serial# 55D5AD1C
[2022-01-31 12:32] LABS: Alanine Aminotransferase 11 U/L (0-31); Albumin Level 3.1 g/dL (3.5-5.0); Alkaline Phosphatase 45 U/L (39-117); Anion Gap 16 (12-20); Aspartate Amino Transferase 16 U/L (5-31); Bilirubin Total 0.8 mg/dL (0.0-1.0); Blood Urea Nitrogen 20 mg/dL (9-16); Calcium 8.7 mg/dL (8.4-10.2); Carbon Dioxide 28 mmol/L (22-29); Chloride 101 mmol/L (96-108); Creatinine Clr Calc Pharmacy 33.3; Estimated Glomerular Filt Rate 41; Glucose Random 92 mg/dL (60-115); Magnesium 1.8 mg/dL (1.6-2.6); Sodium 141 mmol/L (135-145)
[2022-01-31 12:36] LABS: Troponin-I High Sensitivity 25.9 ng/L (<3.5-17.0)
[2022-01-31] MEDS: Albuterol/Iprat 2.5/0.5MG 3 ML AMPUL.NEB INHALE ×2 (13:16→16:51)
[2022-01-31] MEDS: Morphine Sulfate 2 MG/ML CARTRIDGE 1 MG IM (14:47)
--- NOTE | 2022-01-31 15:12 | PC.NURSE ---
PT WAS MEDICATED FOR PAIN. SHE WILL REPOSITION HERSELF PRN. SHE REMAINS ON O2 NC
--- NOTE | 2022-01-31 16:26 | PC.NURSE ---
PT ASSISTED TO WC IN PREPARATION FOR DISCHARGE HOME. SHE IS REQUESTING AN NEB TREATMENT WHILE WAITING FOR HER SON FOR TRANSPORT
== END 2022-01-31 17:07 | disposition home or self-care (01) ==
PROVIDERS: Physician Assistant Medical; Emergency Provider Emergency Medicine Emergency Medical Services; PCP Internal Medicine
DX: M54.42 Lumbago with sciatica, left side (principal); M54.2 Cervicalgia; R91.1 Solitary pulmonary nodule; R51.9 Headache, unspecified; Z20.822 Contact with and (suspected) exposure to COVID-19; Z87.891 Personal history of nicotine dependence; Z79.899 Other long term (current) drug therapy
CPT/HCPCS: 36415; 70450; 72100; 72125; 80053; 82550; 83735; 84484; 85025; 85610; 85730; 87635; 93005; 94640; 96372; 99284; J2270

== ENCOUNTER → 2022-02-14 14:46 | Outpatient (BNVA) | payer MEDICARE, SELFPAY | PROVIDERS: PCP Internal Medicine; Visit Provider Internal Medicine | DX: I26.99 Other pulmonary embolism without acute cor pulmonale (principal); Z79.01 Long term (current) use of anticoagulants; Z51.81 Encounter for therapeutic drug level monitoring | CPT/HCPCS: 85610; 99211 ==

== ENCOUNTER 2022-02-16 13:03 | Emergency (ER) | payer MEDICARE, SELFPAY ==
--- NOTE | ~2022-02-16 | CT_ITS ---
EXAMINATION: CT PELVIS WITHOUT CONTRAST CLINICAL INFORMATION: Pain COMPARISON: 08/18/2018 AP pelvis same date TECHNIQUE: Helical scanning was performed with submillimeter collimation through the pelvis. Sagittal and coronal multiplanar 2-D reconstructions were obtained. This CT examination was performed using dose optimization techniques as appropriate, variously including the following: *Automated exposure control *Adjustment of mA and/or kV according to patient size (this includes techniques or standardized protocols for targeted exams where dose is matched to indication/reason for exam; i.e. extremities or head) *Use of iterative reconstruction technique DLP: 287.77 mGy-cm FINDINGS: PELVIS: Marked sigmoid diverticulosis. Bilateral diverticulosis without diverticulitis. High intensity foci near the cecal tip likely appendectomy. Small fat-containing left inguinal hernia without bowel involvement. Uterus and adnexa within normal limits. No pelvic free fluid or adenopathy. OSSEOUS STRUCTURES: ORIF left proximal femur with exuberant hypertrophic calcifications. No acute pelvic fracture identified. Degenerative changes in the sacroiliac joints and lower lumbar spine. CT/CT pelvis wo IV con IMPRESSION: ORIF left proximal femur. No acute pelvic fracture identified. Bilateral diverticulosis without diverticulitis. Appendectomy.
--- NOTE | ~2022-02-16 | CT_ITS ---
EXAMINATION: CT HEAD WITHOUT CONTRAST CT CERVICAL SPINE WITHOUT CONTRAST CLINICAL INFORMATION: Fall. On blood thinners. COMPARISON: CT head CT cervical spine 01/31/2022 TECHNIQUE: Imaging was performed from the skull base to vertex without intravenous administration of contrast. In addition, helical noncontrast CT imaging was acquired through the cervical spine and source images were reviewed along with axial reconstructions and sagittal and coronal MPRs. [This CT examination was performed using dose optimization techniques as appropriate, variously including the following: *Automated exposure control *Adjustment of mA and/or kV according to patient size (this includes techniques or standardized protocols for targeted exams where dose is matched to indication/reason for exam; i.e. extremities or head) *Use of iterative reconstruction technique] DLP: 1138 mGy-cm FINDINGS: HEAD: No intracranial mass, hemorrhage, or midline shift is visualized. There is generalized global volume loss. There is moderate prominence of the ventricles and the sulci . There is mild hypodensity of the periventricular white matter due to chronic small vessel ischemic disease. There are vascular calcifications of the internal carotid arteries bilaterally. No extra-axial collections are identified. The paranasal sinuses and mastoid air cells are well aerated. CERVICAL SPINE: There is no evidence of acute cervical spine fracture. Vertebral bodies remain normal in height. Cervical vertebrae have normal alignment. There is multilevel degenerative spondylosis of the cervical spine with disc height narrowing and endplate spurs and facet joint arthrosis Redemonstration of the 2 cm nodule in the right lobe of thyroid. Linear postsurgical scarring at both lung apices. Vascular calcifications of aorta and carotid arteries. CT/CT cervical spine wo IV con IMPRESSION: 1. No acute intracranial pathology. 2. No CT evidence of acute cervical spine fracture or traumatic subluxation. 3. Redemonstration of 2 cm right lobe thyroid nodule. Recommend follow-up thyroid ultrasound.
--- NOTE | ~2022-02-16 | XR_ITS ---
EXAMINATION: XR HIP, RIGHT CLINICAL INFORMATION: Question of right hip fracture COMPARISON: Left hip 01/23/2020 TECHNIQUE: Single view pelvis with 3 additional views of the right hip. FINDINGS: There is an intramedullary bruce and screw present in the left hip. Surgical clips are present in the pelvis. Some minimal degenerative changes are seen in the right hip but no fractures are identified. No pelvic fracture is seen. XR/XR hip RT w PEL1V IMPRESSION: No evidence of an acute fracture. Postoperative changes as described above on the left.
[2022-02-16 13:31] VITALS: BP 138/75; BP 152/104; PULSE 70; PULSE 81; RESP 16; TEMP 36.8; O2SAT 94; O2SAT 96; BMI 27.4
--- NOTE | 2022-02-16 13:59 | PC.NURSE ---
PT reports fall early this AM. Denies LOC, unknown head strike, c/o right hip pain and unable to bare weight. Reports pain 09/16. Received fentanyl from EMS. Reports 3 falls since January. PT on 2-3L o2 baseline. LSCTA. Reports cough.
--- NOTE | 2022-02-16 14:16 | ED_ITS ---
HPI - Fall General Chief Complaint: Fall Stated Complaint: FALL W/HIP PAIN THIS AM PER EMS Time Seen by Provider: 02/16/22 14:03 Source: patient and EMS Mode of arrival: EMS Limitations: no limitations History of Present Illness HPI Narrative: Patient comes to the emergency room complaining of a fall and right-sided hip pain. Patient states that in the last 2 weeks she has had 3 falls. Today, patient states that she was trying to walk across the room, there was a bump in the carpet, patient fell. Patient states that she was unable to get up, dragged herself to a coffee table and pulled the phone to call for help. Patient states that she did not hit her head, did not lose consciousness. Patient is on blood thinners for history of pulmonary embolisms. Patient denies chest pain or shortness of breath. Patient states that she is unable to put any weight on the right hip. Patient has history of left hip fracture Related Data Home Medications Medication Instructions Recorded Confirmed cholecalciferol (vitamin D3) 50 50 mcg PO DAILY 06/14/21 02/14/22 mcg (2,000 unit) capsule omega 4-wkk-pub-fish oil 60 mg-90 1 cap PO DAILY 06/14/21 02/14/22 mg-500 mg capsule (Fish Oil) warfarin 3 mg tablet 1.5 mg PO MO@1800 07/24/21 02/14/22 warfarin 3 mg tablet (Jantoven) 3 mg PO SUTUWETHFRSA@1800 07/24/21 02/14/22 Previous Rx's Medication Instructions Recorded formoterol fumarate 20 mcg/2 mL 2 ml inhalation BID #60 mL 02/06/20 solution for nebulization (Perforomist) Ventolin HFA 90 mcg/actuation 2 puff inhalation Q4-6H PRN 09/27/21 aerosol inhaler (albuterol sulfate) shortness of breath or wheezing #18 grams ipratropium 0.5 mg-albuterol 3 mg 1 ml inhalation Q6H PRN for 12/06/21 (2.5 mg base)/3 mL nebulization wheezing #270 mL soln azithromycin 250 mg tablet 250 mg PO .every other day #90 tabs 01/19/22 lorazepam 0.5 mg tablet 0.5 mg PO TID PRN anxiety/rESP. 01/26/22 DISTRESS #45 tabs prednisone 20 mg tablet 20 mg PO DAILY #30 tabs 02/10/22 Allergies Allergy/AdvReac Type Severity Reaction Status Date / Time No Known Allergies Allergy Verified 02/14/22 14:59 Review of Systems Review of Systems: Constitutional : No Weight loss, No Fever, No Chills, No Night Sweats, No Fatigue, No Malaise ENT/Mouth : No Hearing loss, No Ear Pain, No Nasal Congestion, No Sinus Pain, No Hoarseness, No sore throat, No Rhinorrhea, No Swallowing Difficulty Eyes: No Eye Pain, No Swelling, No Redness, No Foreign Body, No Discharge, No Vision Changes Cardiovascular : No Chest Pain, No SOB, No Dyspnea on Exertion, No Orthopnea, No Edema, No Palpitations Respiratory : No Cough, No Sputum, No Wheezing, No Smoke Exposure, No Dyspnea Gastrointestinal : No Nausea, No Vomiting, No Diarrhea, No Constipation, No abdominal Pain, No Hematochezia, No Melena Genitourinary : no irregular bleeding, No Dysuria, No Urinary Frequency, No Hematuria, No Urinary Incontinence, No Urgency, No Flank Pain, No Urinary Flow Changes, No Hesitancy Musculoskeletal : Patient complaining of right-sided hip pain Skin : No Skin Lesions, No rash Neuro : No Weakness, No Numbness, No Paresthesias, No Loss of Consciousness, No Dizziness, No Headache Psych : No Anxiety/Panic, No Depression, No SI/HI/AH/VH, No Social Issues, Heme/Lymph: No Bruising, No Bleeding,No Lymphadenopathy Endocrine : No Polyuria, No Polydipsia, No Temperature Intolerance PMFSH Past Medical History Medical History Anxiety Cancer of upper lobe of left lung (~2020) Cancer of upper lobe of right lung (~2019) Chronic bronchitis Closed intertrochanteric fracture with routine healing (~2019) COPD (chronic obstructive pulmonary disease) Current use of anticoagulant therapy (~2011) History of left breast cancer (~2008) History of pulmonary embolism (~2011) Osteoporosis (~2009) Tubular adenoma of colon (~2014) Surgical History History of appendectomy (~09/2012) History of colonoscopy (~07/2014) History of hip surgery (~11/2019) History of left breast biopsy (~03/2009) History of lumpectomy of left breast (~04/2009) History of lung surgery (~07/2019) History of lung surgery (~05/2020) History of tonsillectomy History of tubal ligation Social History Social History Household Members: Children Housing: House Alcohol intake: never Patient Tobacco Use Status: Former Tobacco user Years Smoked: 35pyh - quit 1997 Advance Directives: Yes Advance Directives Information Provided: No Advance Directives on File: No service: No Current occupational status: disabled Physical Exam Vital Signs: Vital Signs: Last Vital Signs Temp 98.2 F 02/16/22 13:31 Pulse 72 02/16/22 22:26 Resp 16 02/16/22 22:26 BP 145/73 H 02/16/22 22:26 Pulse Ox 95 02/16/22 22:26 O2 Del Method 02/16/22 22:26 O2 Flow Rate 2 02/16/22 14:25 Oxygen Flow Rate 2 02/16/22 13:31 BMI result Body Mass Index 27.4 Const: Other: Appearance: Alert. Oriented X3. No acute distress. Eyes: Pupils equal, round and reactive to light. ENT: Pharynx normal. Neck: Normal inspection. Neck supple. No lymph nodes noted. No crepitus CVS: Normal heart rate and rhythm. Pulses normal. Normal S1 and S2 Respiratory: No respiratory distress. Breath sounds normal. No Wheezing. No rales Abdomen: Soft and nontender. No rigidity. No distention. Skin: Skin warm and dry. Normal skin color. Normal skin turgor. Extremities: No lower extremity edema. Patient is able to flex and extend the left hip, no pain. Patient is able to flex and extend the right hip but with pain doing so Neuro: Oriented X 3. No motor deficit. No sensory deficit. Moving all extremities. No slurred speech. CN 2 through 12 grossly intact Psych: calm, cooperative, normal affect Course Course Course Narrative: Patient's labs and imaging are pending. Patient received 975 mg of acetaminophen X-ray does not show any fracture. However, patient is very uncomfortable, has significant pain trying to stand up. Possibly x-ray did not show a smaller fracture. CT scan is pending Head and cervical spine CT does not show any significant abnormality. Patient's blood cell count elevation is likely reactive leukocytosis, lactic acid normal, no fever, vitals within normal limits. CT scan of the hip does not show any fractures. Patient is insistent that she wants to go home. We attempted to have the patient walk. Patient had difficulty time standing up but she was able to do so. However patient was unable to walk at all. Patient is still insistent that she would like to go home in the morning. But throughout the night, she will reconsider getting a physical therapy and Case Management consult. Urinalysis pending. Physician observation started at 23:00 Sign-out given to Dr. Gillis Medications Administered Discontinued Medications Generic Name Dose Route Start Last Admin Trade Name Freq PRN Reason Stop Dose Admin Acetaminophen 975 mg 02/16/22 14:13 02/16/22 14:29 Acetaminophen 325 Mg Tablet PO 02/16/22 14:14 975 mg ONCE ONE Administration Albuterol Sulfate 2.5 mg/ 0 mg 02/16/22 18:22 02/16/22 18:29 Albuterol/Ipratropium 3 ml INHALE 02/16/22 18:23 5 each ONCE ONE Administration MDM - Fall Lab Data Result diagrams: 02/16/22 14:40 02/16/22 14:40 Labs: Lab Results 02/16/22 02/16/22 02/16/22 Range/Units 14:40 14:40 14:40 WBC 14.9 H (4.8-10.8) X10*3/uL RBC 3.50 L (4.20-5.50) X10*6/uL Hgb 11.5 L (12.0-16.0) g/dl Hct 36.3 L (37.0-47.0) % MCV 103.7 H (80.0-98.0) fL MCH 32.9 (27.0-33.0) pg MCHC 31.7 (31.0-35.0) g/dl RDW 14.6 (11.0-16.0) % Plt Count 330 D (160-400) X10*3/uL MPV 10.1 (9.4-12.3) fL Immature Gran % (Auto) 1.2 H (0.0-0.4) % Neut % (Auto) 92.2 H (45-73) % Lymph % (Auto) 2.8 L (20-40) % Woodward % (Auto) 3.2 (2-11) % Eos % (Auto) 0.4 (0-4) % Baso % (Auto) 0.2 (0-2) % Lymph # (Auto) 0.4 L (1.2-4.9) X10*3/uL Woodward # (Auto) 0.5 (0.1-1.2) X10*3/uL Eos # (Auto) 0.1 (0.0-0.4) X10*3/uL Baso # (Auto) 0.0 (0.0-0.2) X10*3/uL Abs Immat Gran (auto) 0.18 H (0.00-0.03) X10*3/uL Absolute Neuts (auto) 13.7 H (2.0-8.3) x10*3/uL Absolute Nucleated RBC 0.000 (0.0-0.012) X10*3/uL Nucleated RBC % (auto) 0.0 (0.0-0.2) /100WBC Smear Tech's Comments VERIFIED PT 30.3 H (10.0-13.1) SEC INR 2.5 H (0.9-1.1) Sodium 146 H (135-145) mmol/L Potassium 4.1 (3.3-5.1) mmol/L Chloride 107 (96-108) mmol/L Carbon Dioxide 27 (22-29) mmol/L Anion Gap 16 (12-20) BUN 17 H (9-16) mg/dL Creatinine 1.14 (0.5-1.4) mg/dL Estim Creat Clear Calc 36.1 Estimated GFR 46 Random Glucose 110 (60-115) mg/dL Calcium 8.6 (8.4-10.2) mg/dL Total Creatine Kinase (26-140) U/L 02/16/22 Range/Units 14:40 WBC (4.8-10.8) X10*3/uL RBC (4.20-5.50) X10*6/uL Hgb (12.0-16.0) g/dl Hct (37.0-47.0) % MCV (80.0-98.0) fL MCH (27.0-33.0) pg MCHC (31.0-35.0) g/dl RDW (11.0-16.0) % Plt Count (160-400) X10*3/uL MPV (9.4-12.3) fL Immature Gran % (Auto) (0.0-0.4) % Neut % (Auto) (45-73) % Lymph % (Auto) (20-40) % Woodward % (Auto) (2-11) % Eos % (Auto) (0-4) % Baso % (Auto) (0-2) % Lymph # (Auto) (1.2-4.9) X10*3/uL Woodward # (Auto) (0.1-1.2) X10*3/uL Eos # (Auto) (0.0-0.4) X10*3/uL Baso # (Auto) (0.0-0.2) X10*3/uL Abs Immat Gran (auto) (0.00-0.03) X10*3/uL Absolute Neuts (auto) (2.0-8.3) x10*3/uL Absolute Nucleated RBC (0.0-0.012) X10*3/uL Nucleated RBC % (auto) (0.0-0.2) /100WBC Smear Tech's Comments PT (10.0-13.1) SEC INR (0.9-1.1) Sodium (135-145) mmol/L Potassium (3.3-5.1) mmol/L Chloride (96-108) mmol/L Carbon Dioxide (22-29) mmol/L Anion Gap (12-20) BUN (9-16) mg/dL Creatinine (0.5-1.4) mg/dL Estim Creat Clear Calc Estimated GFR Random Glucose (60-115) mg/dL Calcium (8.4-10.2) mg/dL Total Creatine Kinase 43 (26-140) U/L Imaging Data Head and cervical spine CT: Radiologist's impression: HEAD: No intracranial mass, hemorrhage, or midline shift is visualized. There is generalized global volume loss. There is moderate prominence of the ventricles and the sulci . There is mild hypodensity of the periventricular white matter due to chronic small vessel ischemic disease. There are vascular calcifications of the internal carotid arteries bilaterally. No extra-axial collections are identified. The paranasal sinuses and mastoid air cells are well aerated. CERVICAL SPINE: There is no evidence of acute cervical spine fracture. Vertebral bodies remain normal in height. Cervical vertebrae have normal alignment. There is multilevel degenerative spondylosis of the cervical spine with disc height narrowing and endplate spurs and facet joint arthrosis Redemonstration of the 2 cm nodule in the right lobe of thyroid. Linear postsurgical scarring at both lung apices. Vascular calcifications of aorta and carotid arteries. CT/CT head/brain wo IV con IMPRESSION: 1.? No acute intracranial pathology. 2.? No CT evidence of acute cervical spine fracture or traumatic subluxation. 3.? Redemonstration of 2 cm right lobe thyroid nodule. Recommend follow-up thyroid ultrasound. Pelvis CT scan: Radiologist's impression: FINDINGS: PELVIS: Marked sigmoid diverticulosis. Bilateral diverticulosis without diverticulitis. High intensity foci near the cecal tip likely appendectomy. Small fat-containing left inguinal hernia without bowel involvement. Uterus and adnexa within normal limits. No pelvic free fluid or adenopathy.? OSSEOUS STRUCTURES: ORIF left proximal femur with exuberant hypertrophic calcifications. No acute pelvic fracture identified. Degenerative changes in the sacroiliac joints and lower lumbar spine. CT/CT pelvis wo IV con IMPRESSION: ORIF left proximal femur. ? No acute pelvic fracture identified. ? Bilateral diverticulosis without diverticulitis. ? Appendectomy.? Discharge Plan Discharge Clinical Impression: Fall, Acute hip pain Patient Disposition: Still a Patient Prescriptions: No Action formoterol fumarate [Perforomist] 20 mcg/2 mL solution for nebulization 2 ml inhalation BID Qty: 60 11RF albuterol sulfate [Ventolin HFA] 90 mcg/actuation HFA aerosol inhaler 2 puff inhalation Q4-6H PRN (Reason: shortness of breath or wheezing) Qty: 18 2RF ipratropium-albuterol 0.5 mg-3 mg(2.5 mg base)/3 mL solution for nebulization 1 ml inhalation Q6H PRN (Reason: for wheezing) Qty: 270 3RF lorazepam 0.5 mg tablet 0.5 mg PO TID PRN (Reason: anxiety/rESP. DISTRESS) Qty: 45 3RF prednisone 20 mg tablet 20 mg PO DAILY Qty: 30 1RF warfarin [] 3 mg tablet 3 mg PO UWETH@1800 Protocol: Dose Management Condition: Sunday (Week One) Dose/Route: 3 mg Instruction: 1 x 3 mg tablet Condition: Sunday Dose/Route: 3 mg Instruction: 1 x 3 mg tablet Condition: Sunday Dose/Route: 0 mg Instruction: 0 tablets Condition: Sunday Dose/Route: 1.5 mg Instruction: 0.5 x 3 mg tablets Condition: Dose/Route: 3 mg Instruction: 1 x 3 mg tablet Condition: Sunday Dose/Route: 3 mg Instruction: 1 x 3 mg tablet Condition: Sunday Dose/Route: 3 mg Instruction: 1 x 3 mg tablet Condition: Sunday ( Two) Dose/Route: 3 mg Instruction: 1 x 3 mg tablet Condition: Sunday Dose/Route: 3 mg Instruction: 1 x 3 mg tablet Condition: Sunday Dose/Route: 3 mg Instruction: 1 x 3 mg tablet Condition: Sunday Dose/Route: 1.5 mg Instruction: 0.5 x 3 mg tablets Condition: Dose/Route: 3 mg Instruction: 1 x 3 mg tablet Condition: Sunday Dose/Route: 3 mg Instruction: 1 x 3 mg tablet Condition: Sunday Dose/Route: 3 mg Instruction: 1 x 3 mg tablet Protocol Text: Adjustment Start Date: Sunday02/14/22 INR Value: 4.2 INR Date: 02/14/22 Recheck Date: 02/17/22 Additional Instructions: INR is elevated do not take warfarin today resume usual dosing Sunday have a serving dark leafy greens today then balance greens and reds in diet Rx Instructions: 3 MG ALL DAYS EXCEPT SUNDAY 1.5 MG warfarin 3 mg Tablet 1.5 mg PO MO@1800 Protocol: Dose Management Condition: Sunday ( One) Dose/Route: 3 mg Instruction: 1 x 3 mg tablet Condition: Sunday Dose/Route: 3 mg Instruction: 1 x 3 mg tablet Condition: Sunday Dose/Route: 0 mg Instruction: 0 tablets Condition: Sunday Dose/Route: 1.5 mg Instruction: 0.5 x 3 mg tablets Condition: Dose/Route: 3 mg Instruction: 1 x 3 mg tablet Condition: Sunday Dose/Route: 3 mg Instruction: 1 x 3 mg tablet Condition: Sunday Dose/Route: 3 mg Instruction: 1 x 3 mg tablet Condition: Sunday (Week Two) Dose/Route: 3 mg Instruction: 1 x 3 mg tablet Condition: Sunday Dose/Route: 3 mg Instruction: 1 x 3 mg tablet Condition: Sunday Dose/Route: 3 mg Instruction: 1 x 3 mg tablet Condition: Sunday Dose/Route: 1.5 mg Instruction: 0.5 x 3 mg tablets Condition: Dose/Route: 3 mg Instruction: 1 x 3 mg tablet Condition: Sunday Dose/Route: 3 mg Instruction: 1 x 3 mg tablet Condition: Sunday Dose/Route: 3 mg Instruction: 1 x 3 mg tablet Protocol Text: Adjustment Start Date: Sunday02/14/22 INR Value: 4.2 INR Date: 02/14/22 Recheck Date: 02/17/22 Additional Instructions: INR is elevated do not take warfarin today resume usual dosing Sunday have a serving dark leafy greens today then balance greens and reds in diet Rx Instructions: 3 MG ALL DAYS EXCEPT SUNDAY 1.5 MG azithromycin 250 mg tablet 250 mg PO .every other day Qty: 90 3RF omega 4-gae-xko-fish oil [Fish Oil] 60-90-500 mg capsule 1 cap PO DAILY cholecalciferol (vitamin D3) 50 mcg (2,000 unit) capsule 50 mcg PO DAILY
[2022-02-16 14:25] VITALS: BP 144/81; PULSE 67; RESP 18; O2SAT 98
[2022-02-16] MEDS: Acetaminophen 325 MG TABLET 975 MG PO (14:29)
[2022-02-16 14:50] LABS: Basophils Percent Auto 0.2 % (0-2); Eosinophils Absolute Auto 0.1 X10*3/uL (0.0-0.4); Eosinophils Percent Auto 0.4 % (0-4); Hematocrit 36.3 % (37.0-47.0); Hemoglobin 11.5 g/dl (12.0-16.0); Imm Gran Abs Auto 0.18 X10*3/uL (0.00-0.03); Imm Gran Pct Auto 1.2 % (0.0-0.4); Lymphocytes Absolute Auto 0.4 X10*3/uL (1.2-4.9); Lymphocytes Percent Auto 2.8 % (20-40); MANUAL DIFF FLAG SCAN; Mean Corpuscular HGB Conc 31.7 g/dl (31.0-35.0); Mean Corpuscular Hemoglobin 32.9 pg (27.0-33.0); Mean Corpuscular Volume 103.7 fL (80.0-98.0); Mean Platelet Volume 10.1 fL (9.4-12.3); Monocytes Absolute Auto 0.5 X10*3/uL (0.1-1.2); Monocytes Percent Auto 3.2 % (2-11); Neutrophils Absolute Auto 13.7 x10*3/uL (2.0-8.3); Neutrophils Percent Auto 92.2 % (45-73); Platelet Count 330 X10*3/uL (160-400); Red Cell Distribution Width 14.6 % (11.0-16.0); SCAN SMEAR FLAG 1; White Blood Count 14.9 X10*3/uL (4.8-10.8)
[2022-02-16 15:00] LABS: INTERNATIONAL NORM RATIO 2.5 (0.9-1.1); Prothrombin Time 30.3 SEC (10.0-13.1)
[2022-02-16 15:12] LABS: Anion Gap 16 (12-20); Blood Urea Nitrogen 17 mg/dL (9-16); Calcium 8.6 mg/dL (8.4-10.2); Carbon Dioxide 27 mmol/L (22-29); Chloride 107 mmol/L (96-108); Creatinine Clr Calc Pharmacy 36.1; Estimated Glomerular Filt Rate 46; Glucose Random 110 mg/dL (60-115); Potassium 4.1 mmol/L (3.3-5.1); Sodium 146 mmol/L (135-145)
[2022-02-16 15:36] LABS: SLIDE REVIEW VERIFIED
[2022-02-16] MEDS: Albuterol Sulfate 2.5 MG, Albuterol/Iprat 2.5/0.5MG 3 ML 3 ML INHALE (18:29)
[2022-02-16 18:30] VITALS: PULSE 84; RESP 16
[2022-02-16 22:26] VITALS: BP 145/73; PULSE 72; RESP 16; O2SAT 95
--- NOTE | 2022-02-16 22:59 | PC.NURSE ---
provider approached me to see if we can do an ambulation test on the pt. pt was able to get herself sitting upright on the bed and up but when it came to ambulation pt needed help. I explained to pt that she will be here for tonight and we will figure out a plan for her tomorrow. pt stated she is very uncomfortable so I spoke with charge nurse and is agreeable to getting the pt a hospital bed. RN and Provider aware
[2022-02-16] MEDS: Albuterol Sulfate (0.083%) 2.5 MG/3 ML VIAL.NEB INHALE (23:25)
[2022-02-16 23:26] VITALS: PULSE 68; RESP 16; O2SAT 93
[2022-02-17 00:04] VITALS: BP 169/90; PULSE 76; RESP 17; TEMP 36.5; O2SAT 93
[2022-02-17 00:21] LABS: Appearance Urine Clear; Color Urine Yellow; Glucose Urine UA Negative (Negative); Leukocyte Esterase Urine Large (3+) (Negative); Nitrite Urine Negative (Negative); PH 5.5 (5.0-9.0); UMIC TRIGGER UACC YES; Urine Blood Negative (Negative); Urine Ketones Trace mg/dL (Negative); Urine Protein Negative (Neg-Trace)
[2022-02-17 00:35] LABS: Bacteria Urine Trace (None Seen); Hyaline Casts Urine 0-2 /LPF (0-2); Leucine Crystal Present; RBC Urine 0-2 /HPF (0-2); UACC Culture Trigger YES; WBC Urine 21-50 /HPF (0-5)
[2022-02-17 04:28] VITALS: BP 151/77; PULSE 63; RESP 18; TEMP 36.6; O2SAT 99
[2022-02-17 05:40] VITALS: BP 165/90; PULSE 74; RESP 13; TEMP 36.4; O2SAT 96
[2022-02-17] MEDS: Acetaminophen 325 MG TABLET 650 MG PO (06:48)
[2022-02-17 07:36] VITALS: PULSE 74; O2SAT 96
--- NOTE | 2022-02-17 09:05 | PHA.MEDREC ---
Pharmacy Consult ? Medication Reconciliation Pharmacy has completed the medication reconciliation. Patient reports alternating Formoterol and Duoneb taking one every 6 hours. Patient confirmed all other medications. Sana Selby, RahelD
[2022-02-17] MEDS: Albuterol/Iprat 2.5/0.5MG 3 ML AMPUL.NEB INHALE ×2 (09:34→16:44)
[2022-02-17 09:37] VITALS: PULSE 67; RESP 16; O2SAT 97
[2022-02-17] MEDS: predniSONE 20 MG TABLET PO (09:41)
[2022-02-17] MEDS: Cholecalciferol (Vitamin D3) 25 MCG TABLET 50 MCG PO (09:41)
[2022-02-17] MEDS: Azithromycin 250 MG TABLET PO (09:41)
--- NOTE | 2022-02-17 10:07 | MHC.CM.ED ---
Recieved CM consult for assessment of d/c needs: pt resides alone and uses a walker - no services at present time - drives or has family who assist her. PT eval recommends STR; Pt has been to acute and STR in the past - would consider a return to [facility] - discussed criteria for admission and obtained secondary STR choices. Covid vax x3. HCP on file. Will refer to [facility] and then to broad STR sites.
[2022-02-17 10:45] LABS: INTERNATIONAL NORM RATIO 2.3 (0.9-1.1); Prothrombin Time 27.3 SEC (10.0-13.1)
--- NOTE | 2022-02-17 12:57 | MHC.CM.ED ---
Pt has accepted an offer from [facility] for a private room with a [facility] time [facility] 3:30 pm [facility] Pt's dtr in law updated with plan. ED Care team aware and in agreement with above.
[2022-02-17 13:22] LABS: COVID-19 Test Negative (Negative)
--- NOTE | 2022-02-17 16:31 | PC.NURSE ---
Melinda called at 1630 for an update on transfer.Dispatch said within the hour,Rn aware
[2022-02-17 16:45] VITALS: PULSE 73; RESP 20; O2SAT 95
== END 2022-02-17 18:57 | disposition skilled nursing facility (03) ==
PROVIDERS: Physician Assistant; Emergency Provider Emergency Medicine; PCP Internal Medicine
DX: M25.551 Pain in right hip (principal); N39.0 Urinary tract infection, site not specified; R29.6 Repeated falls; Z91.81 History of falling; Z20.822 Contact with and (suspected) exposure to COVID-19; Z86.711 Personal history of pulmonary embolism; Z85.118 Personal history of other malignant neoplasm of bronchus and lung; Z85.3 Personal history of malignant neoplasm of breast; Z79.01 Long term (current) use of anticoagulants; Z79.899 Other long term (current) drug therapy
CPT/HCPCS: 36415; 70450; 72125; 72192; 73502; 80048; 81001; 82550; 85025; 85610; 87086; 87635; 94640; 97162; 99284; 99285

== ENCOUNTER 2022-03-10 14:53 | Outpatient (REF) | payer MEDICARE, SELFPAY ==
--- NOTE | ~2022-03-10 | XR_ITS ---
EXAMINATION: XR HUMERUS, LEFT CLINICAL INFORMATION: Left upper extremity pain. COMPARISON: None TECHNIQUE: AP and lateral views of the left humerus. FINDINGS: There is mild cephalic migration of humeral head in relation to glenoid. There is lateral acromial spurring. The glenohumeral and AC joint space appears preserved. There is soft tissue calcification laterally. No visible acute fracture or dislocation seen. XR/XR humerus LT IMPRESSION: 1. Cephalic migration of humeral head in relation to glenoid suggestive of rotator cuff tear. There is lateral acromial spurring. 2. There is soft tissue calcification laterally.
== END 2022-03-10 14:54 | disposition home or self-care (01) ==
LOC: HO.XRAY 14:53
PROVIDERS: PCP Internal Medicine; Visit Provider Internal Medicine
DX: M79.602 Pain in left arm (principal)
CPT/HCPCS: 73060

== ENCOUNTER → 2022-03-16 14:04 | Outpatient (BNVA) | payer MEDICARE, SELFPAY | PROVIDERS: PCP Internal Medicine; Visit Provider Internal Medicine | DX: J44.9 Chronic obstructive pulmonary disease, unspecified (principal); J96.91 Respiratory failure, unspecified with hypoxia; F41.9 Anxiety disorder, unspecified; Z85.118 Personal history of other malignant neoplasm of bronchus and lung; Z79.52 Long term (current) use of systemic steroids; Z79.899 Other long term (current) drug therapy | CPT/HCPCS: 99212 ==

== ENCOUNTER → 2022-03-27 14:54 | Outpatient (BNVA) | payer MEDICARE, SELFPAY | PROVIDERS: PCP Internal Medicine; Visit Provider Internal Medicine | DX: Z79.01 Long term (current) use of anticoagulants (principal) ==

== ENCOUNTER → 2022-04-04 12:24 | Outpatient (BNVA) | payer MEDICARE, SELFPAY | PROVIDERS: PCP Internal Medicine; Visit Provider Internal Medicine | DX: Z79.01 Long term (current) use of anticoagulants (principal) ==

== ENCOUNTER → 2022-04-11 12:08 | Outpatient (BNVA) | payer MEDICARE, SELFPAY | PROVIDERS: PCP Internal Medicine; Visit Provider Internal Medicine | DX: Z79.01 Long term (current) use of anticoagulants (principal) ==

== ENCOUNTER → 2022-04-21 14:12 | Outpatient (BNVA) | payer MEDICARE, SELFPAY | PROVIDERS: PCP Internal Medicine; Visit Provider Internal Medicine | DX: I26.99 Other pulmonary embolism without acute cor pulmonale (principal); Z79.01 Long term (current) use of anticoagulants; Z51.81 Encounter for therapeutic drug level monitoring | CPT/HCPCS: 85610; 99211 ==

== ENCOUNTER → 2022-04-24 13:59 | Outpatient (BNVA) | payer MEDICARE, SELFPAY | PROVIDERS: PCP Internal Medicine; Visit Provider Internal Medicine | DX: I26.99 Other pulmonary embolism without acute cor pulmonale (principal); Z79.01 Long term (current) use of anticoagulants; Z51.81 Encounter for therapeutic drug level monitoring | CPT/HCPCS: 85610; 99211 ==

== ENCOUNTER → 2022-04-28 14:13 | Outpatient (BNVA) | payer MEDICARE, SELFPAY | PROVIDERS: PCP Internal Medicine; Visit Provider Internal Medicine | DX: I26.99 Other pulmonary embolism without acute cor pulmonale (principal); Z79.01 Long term (current) use of anticoagulants; Z51.81 Encounter for therapeutic drug level monitoring | CPT/HCPCS: 85610; 99211 ==

== ENCOUNTER → 2022-05-05 14:40 | Outpatient (BNVA) | payer MEDICARE, SELFPAY | PROVIDERS: PCP Internal Medicine; Visit Provider Internal Medicine | DX: I26.99 Other pulmonary embolism without acute cor pulmonale (principal); Z79.01 Long term (current) use of anticoagulants; Z51.81 Encounter for therapeutic drug level monitoring | CPT/HCPCS: 85610; 99211 ==

== ENCOUNTER → 2022-05-11 15:40 | Outpatient (BNVA) | payer MEDICARE, SELFPAY | PROVIDERS: PCP Internal Medicine; Visit Provider Internal Medicine | DX: I26.99 Other pulmonary embolism without acute cor pulmonale (principal); Z79.01 Long term (current) use of anticoagulants; Z51.81 Encounter for therapeutic drug level monitoring | CPT/HCPCS: 85610; 99211 ==

== ENCOUNTER 2022-05-15 16:34 | Outpatient (REF) | payer MEDICARE, SELFPAY ==
--- NOTE | ~2022-05-15 | US_ITS ---
EXAMINATION: US THYROID CLINICAL INFORMATION: Thyroid nodule. COMPARISON: CT cervical spine 02/16/2022. TECHNIQUE: Linear transducer grayscale and color Doppler examination with attention to the region of the thyroid. FINDINGS: SIZE: Measurements of the thyroid lobes and nodules are given in sagittal, anteroposterior and transverse dimensions respectively. Right Thyroid Lobe: 4.4 x 1.8 x 2.0 cm, volume 8.3 mL. Parenchyma: The gland echotexture is homogeneous. Thyroid vascularity is normal. Left Thyroid Lobe: 4.0 x 1.3 x 1.1 cm, volume 3.0 mL. Parenchyma: The gland echotexture is homogeneous. Thyroid vascularity is normal. Isthmus: 0.4 cm in maximum AP dimension. Estimated total number of nodules greater than or equal to 1 cm: 2. [employer] nodules are described as follows: 1. Location: Right mid pole. Size: 2.1 x 1.4 x 2.0 cm, volume 3.1 mL. Nodule characteristics: Composition: Mixed cystic and solid (1). Echogenicity: Anechoic (0). Shape: Not taller than wide (0). Margins: Irregular (2). Echogenic Foci: None (0). ACR TI-RADS total points: 3 ACR TI-RADS category: 3 2. Location: Left upper pole. Size: 1.0 x 0.8 x 1.1 cm, volume 0.5 mL. Nodule characteristics: Composition: Mixed cystic and solid (1). Echogenicity: Anechoic (0). Shape: Not taller than wide (0). Margins: Irregular (2). Echogenic Foci: None (0). ACR TI-RADS total points: 3 ACR TI-RADS category: 3 There are multiple anechoic cysts seen in both thyroid lobes. NODES: No lymphadenopathy is seen in the tissue surrounding the thyroid gland. US/US thyroid IMPRESSION: 1. Multiple bilateral thyroid nodules. The largest nodule is in the midpole right lobe measuring 2.1 cm. The nodules are nonsuspicious. 2. Multiple bilateral small thyroid cysts. 3. TR1 (0 point) and TR 2 (2 points): 4. TR4 (4-6 points): FNA if more than or equal to 1.5 cm in maximum dimension, followup ultrasound in 1, 2, 3 and 5 years if 1 to 1.4 cm in maximum dimension. 5. TR5 (more than or equal to 7 points): FNA if more than or equal to 1 cm in maximum dimension, followup ultrasound every year for 5 years if 0.5 to 0.9 cm in maximum dimension.
== END 2022-05-15 16:35 | disposition home or self-care (01) ==
LOC: HO.US 16:34
PROVIDERS: PCP Internal Medicine; Visit Provider Internal Medicine
DX: E05.31 Thyrotoxicosis from ectopic thyroid tissue with thyrotoxic crisis or storm (principal)
CPT/HCPCS: 76536

== ENCOUNTER 2022-05-19 12:21 | Outpatient (REF) | payer MEDICARE, SELFPAY ==
--- NOTE | ~2022-05-19 | CT_ITS ---
EXAMINATION: CT CHEST WITHOUT CONTRAST CLINICAL INFORMATION: Solitary pulmonary nodule COMPARISON: 11/18/2021 and studies dating back to 03/12/2020 TECHNIQUE: Multidetector volumetric CT imaging of the chest was done. Axial MIP volume rendering provided. Sagittal and coronal reformatted images were obtained. This CT examination was performed using dose optimization techniques as appropriate, variously including the following: *Automated exposure control *Adjustment of mA and/or kV according to patient size (this includes techniques or standardized protocols for targeted exams where dose is matched to indication/reason for exam; i.e. extremities or head) *Use of iterative reconstruction technique DLP: 136 mGy-cm FINDINGS: LUNGS: Patient is again noted to be status post bilateral upper lobe lung surgery. Central airways are patent. There is mild bronchial wall thickening seen bilaterally without evidence of bronchiectasis. No confluent parenchymal disease is noted. Mild changes of centrilobular emphysema seen bilaterally. There are some sub-4 mm densities present. There are some normal-appearing perifissural lymph nodes. Calcified granulomas present. The left suprahilar region appears similar to other post surgical studies with no specific mass appreciated in this location. MEDIASTINUM: The right thyroid gland is larger than the left without definite nodule identified. Heart normal size. Coronary artery calcification present. Aortic valve calcification is seen. No pericardial effusion. The main pulmonary artery is prominent at 4 cm in diameter. The left pulmonary artery is prominent at 3 cm in diameter. The right pulmonary artery measures 2.7 cm in diameter. There is dilatation of the distal ascending thoracic aorta to approximately 4 cm in diameter just proximal to the takeoff of the right innominate artery. There is nonocclusive calcified plaque seen in the aortic arch. There is mild scattered calcified plaque within the descending thoracic aorta. No mediastinal or hilar lymphadenopathy is appreciated. CORONARY ARTERY CALCIFICATION: Moderate coronary artery calcification is present. PLEURA: There is no pleural effusion. AXILLA: No lymphadenopathy. There is a left breast 1.4 x 1.0 cm soft tissue mass in this patient status post left lumpectomy. This likely represents postsurgical change and is stable. UPPER ABDOMEN: Unremarkable. OSSEOUS STRUCTURES: Old bilateral rib fractures present. There is calcific tendinitis of the right shoulder as well as loss of the glenohumeral joint space. There is scoliosis of the thoracic spine with multilevel degenerative disc disease without significant change. No suspicious destructive lesions identified. CT/CT chest wo IV con IMPRESSION: 1. Bilateral upper lobe postsurgical change. Old granulomatous disease without new suspicious lung nodule identified. No lymphadenopathy is seen. 2. Prominent thoracic aorta and pulmonary arteries. Fleischner guidelines were followed.
[2022-05-19 12:57] LABS: MANUAL DIFF FLAG NO
[2022-05-19 13:18] LABS: Appearance Urine Clear; Color Urine Yellow; Glucose Urine UA Negative (Negative); Leukocyte Esterase Urine Moderate (2+) (Negative); Nitrite Urine Negative (Negative); PH 5.5 (5.0-9.0); Specific Gravity - Urine 1.025 (1.005-1.025); UMIC TRIGGER UACC YES; Urine Blood Negative (Negative); Urine Ketones Trace mg/dL (Negative); Urine Protein Negative (Neg-Trace)
[2022-05-19 13:19] LABS: Basophils Percent Auto 0.4 % (0-2); Eosinophils Absolute Auto 0.1 X10*3/uL (0.0-0.4); Eosinophils Percent Auto 1.2 % (0-4); Hematocrit 39.1 % (37.0-47.0); Hemoglobin 12.4 g/dl (12.0-16.0); Lymphocytes Absolute Auto 1.3 X10*3/uL (1.2-4.9); Lymphocytes Percent Auto 13.3 % (20-40); Mean Corpuscular HGB Conc 31.7 g/dl (31.0-35.0); Mean Corpuscular Hemoglobin 32.9 pg (27.0-33.0); Mean Corpuscular Volume 103.7 fL (80.0-98.0); Mean Platelet Volume 10.5 fL (9.4-12.3); Monocytes Absolute Auto 0.7 X10*3/uL (0.1-1.2); Monocytes Percent Auto 7.5 % (2-11); Neutrophils Absolute Auto 7.5 x10*3/uL (2.0-8.3); Neutrophils Percent Auto 76.6 % (45-73); Platelet Count 265 X10*3/uL (160-400); Red Blood Count 3.77 X10*6/uL (4.20-5.50); White Blood Count 9.8 X10*3/uL (4.8-10.8)
[2022-05-19 13:21] LABS: Bacteria Urine None Seen (None Seen); Hyaline Casts Urine 0-2 /LPF (0-2); RBC Urine 0-2 /HPF (0-2); UACC Culture Trigger YES
[2022-05-19 14:01] LABS: Alanine Aminotransferase 10 U/L (0-31); Albumin Level 3.4 g/dL (3.5-5.0); Alkaline Phosphatase 65 U/L (39-117); Anion Gap 14 (12-20); Aspartate Amino Transferase 14 U/L (5-31); Blood Urea Nitrogen 24 mg/dL (9-16); Calcium 8.9 mg/dL (8.4-10.2); Carbon Dioxide 27 mmol/L (22-29); Chloride 105 mmol/L (96-108); Cholesterol 237 mg/dL; Estimated Glomerular Filt Rate 51; Glucose Random 75 mg/dL (60-115); HDL Cholesterol 85 mg/dL; LDL Cholesterol Calculated 121 mg/dl; Potassium 4.2 mmol/L (3.3-5.1); Sodium 142 mmol/L (135-145); Total Protein 5.3 g/dL (6.5-8.0); Triglycerides 155 mg/dL
[2022-05-19 14:15] LABS: Vitamin D 25-OH Total 44.6 ng/mL (>30)
== END 2022-05-19 12:22 | disposition home or self-care (01) ==
LOC: HO.CT 12:21
PROVIDERS: Absent Provider Internal Medicine; PCP Internal Medicine; Visit Provider Surgery
DX: I26.99 Other pulmonary embolism without acute cor pulmonale (principal); R91.1 Solitary pulmonary nodule; Z51.81 Encounter for therapeutic drug level monitoring; Z79.01 Long term (current) use of anticoagulants; I10 Essential (primary) hypertension; E87.6 Hypokalemia; E78.00 Pure hypercholesterolemia, unspecified; E55.9 Vitamin D deficiency, unspecified; E04.1 Nontoxic single thyroid nodule; R82.71 Bacteriuria
CPT/HCPCS: 36415; 71250; 80053; 80061; 81001; 82306; 85025; 85610; 87086; 87088; 87186; 99211

== ENCOUNTER → 2022-05-22 13:26 | Outpatient (BNVA) | payer MEDICARE, SELFPAY | PROVIDERS: PCP Internal Medicine; Visit Provider Internal Medicine | DX: J96.91 Respiratory failure, unspecified with hypoxia (principal); J44.9 Chronic obstructive pulmonary disease, unspecified; C34.12 Malignant neoplasm of upper lobe, left bronchus or lung; C34.11 Malignant neoplasm of upper lobe, right bronchus or lung; F41.1 Generalized anxiety disorder; Z85.3 Personal history of malignant neoplasm of breast; Z99.81 Dependence on supplemental oxygen; Z51.5 Encounter for palliative care | CPT/HCPCS: 99212 ==

== ENCOUNTER → 2022-05-25 13:59 | Outpatient (BNVA) | payer MEDICARE, SELFPAY | PROVIDERS: PCP Internal Medicine; Visit Provider Internal Medicine | DX: I26.99 Other pulmonary embolism without acute cor pulmonale (principal); Z79.01 Long term (current) use of anticoagulants; Z51.81 Encounter for therapeutic drug level monitoring | CPT/HCPCS: 85610; 99211 ==

== ENCOUNTER → 2022-05-26 11:06 | Outpatient (BNVA) | payer MEDICARE, SELFPAY | PROVIDERS: PCP Internal Medicine; Visit Provider Surgery | DX: C34.12 Malignant neoplasm of upper lobe, left bronchus or lung (principal); C34.11 Malignant neoplasm of upper lobe, right bronchus or lung; R91.1 Solitary pulmonary nodule | CPT/HCPCS: 99212 ==

== ENCOUNTER 2022-06-08 11:15 | Emergency (ER) | payer MEDICARE, SELFPAY ==
--- NOTE | ~2022-06-08 | XR_ITS ---
EXAMINATION: XR CHEST CLINICAL INFORMATION: Cough. COMPARISON: 07/24/2021 chest radiographs. TECHNIQUE: Frontal view of the chest was obtained. FINDINGS: The lungs are clear. The heart and mediastinal structures are unremarkable. Moderate thoracic dextro scoliosis without interval change. XR/XR chest 1V IMPRESSION: No acute cardiopulmonary process.
[2022-06-08 11:25] VITALS: BP 146/86; BP 155/79; PULSE 89; RESP 17; TEMP 35.9; O2SAT 95; BMI 24.7
--- NOTE | 2022-06-08 11:59 | ED_ITS ---
HPI - Back Pain/Injury General Chief Complaint: Back Pain/Injury Stated Complaint: L SIDE BACK PAIN,NO INJURY,HOME O2 @2LPM PER EMS Time Seen by Provider: 06/08/22 11:52 Source: patient and EMS Mode of arrival: EMS History of Present Illness HPI Narrative: 77y/o female with PMHx of COPD on chronic O2, lung CA, chronic bronchitis, PE on Coumadin, presenting to the ED complaining left flank pain since Sunday. Patient reports took Toradol this morning without relief. Admits pain worse with movement & coughing. Reports chronic SOB. Denies fever, chills, new or worsening cough, abdominal pain, nausea/vomiting, hematuria/dysuria, injury/fall or trauma MD elicited complaint: back pain and back injury Onset (ago): day(s) Related Data Home Medications Medication Instructions Recorded Confirmed cholecalciferol (vitamin D3) 50 50 mcg PO DAILY 06/14/21 05/26/22 mcg (2,000 unit) capsule warfarin 3 mg tablet 1.5 mg PO WE@1800 07/24/21 05/26/22 warfarin 3 mg tablet (Jantoven) 3 mg PO SUTUWETHFRSA@1800 07/24/21 05/26/22 albuterol sulfate 90 mcg/actuation 2 puff inhalation Q4-6H PRN 02/17/22 05/26/22 aerosol inhaler (Ventolin HFA) Wheezing formoterol fumarate 20 mcg/2 mL 2 ml inhalation BID@0000,1200 02/17/22 05/26/22 solution for nebulization (Perforomist) tramadol 50 mg tablet 50 mg PO TID PRN 05/19/22 05/26/22 Previous Rx's Medication Instructions Recorded formoterol fumarate 20 mcg/2 mL 2 ml inhalation Q12H 15 days #60 mL 02/17/22 solution for nebulization (Perforomist) azithromycin 250 mg tablet 250 mg PO Q48H copd/chronic 03/09/22 Bronchitis 90 days #45 tabs prednisone 20 mg tablet 20 mg PO DAILY #30 tabs 05/08/22 ipratropium 0.5 mg-albuterol 3 mg 3 ml inhalation Q6H PRN for 05/09/22 (2.5 mg base)/3 mL nebulization wheezing #270 mL soln lorazepam 0.5 mg tablet 0.5 mg PO TID PRN anxiety 30 days 06/05/22 #90 tabs lorazepam 0.5 mg tablet 0.5 mg PO TID PRN anxiety/resp. 06/05/22 distress 30 days #45 tabs gabapentin 100 mg capsule 100 mg PO TID PRN pain (scale 06/08/22 score 4-6) #15 caps hydrocodone 5 mg-acetaminophen 325 1 tab PO Q8H PRN pain, severe 3 06/08/22 mg tablet days #5 tabs valacyclovir 1 gram tablet 1,000 mg PO TID 7 days #21 tabs 06/08/22 Allergies Allergy/AdvReac Type Severity Reaction Status Date / Time No Known Allergies Allergy Verified 05/26/22 11:20 Review of Systems Review of Systems: Constitutional: No Fever, No Chills, No Fatigue, No Malaise ENT/Mouth: No Ear Pain, No Nasal Congestion, No sore throat, No Rhinorrhea, No Swallowing Difficulty Eyes: No Eye Pain, No Swelling, No Redness, No Vision Changes Cardiovascular: No Chest Pain, +chronic SOB, No Dyspnea on Exertion, No Edema, No Palpitations Respiratory: +chronic Cough, No Sputum, No Wheezing, No Dyspnea Gastrointestinal: No Nausea, No Vomiting, No Diarrhea, No Constipation, No Abdominal pain, Genitourinary: No irregular bleeding, No Dysuria, No Urinary Frequency, No Hematuria, No Urinary Incontinence/retention, No Urgency, + Flank Pain Musculoskeletal: + joint pain, +Myalgias, No Joint Swelling Skin: No Skin Lesions, No rash Neuro: No Weakness, No Dizziness, No Headache Yes all other systems are reviewed and are negative Constitutional: Constitutional: Reports as per [facility] Past Medical History Attestation statement: The following information was validated with the patient. Medical History Anxiety Cancer of upper lobe of left lung (~2020) Cancer of upper lobe of right lung (~2019) Chronic bronchitis Closed intertrochanteric fracture with routine healing (~2019) COPD (chronic obstructive pulmonary disease) Current use of anticoagulant therapy (~2011) History of left breast cancer (~2008) History of pulmonary embolism (~2011) Osteoporosis (~2018) Respiratory failure with hypoxia Tubular adenoma of colon (~2014) Surgical History History of appendectomy (~09/2012) History of colonoscopy (~07/2014) History of hip surgery (~11/2019) History of left breast biopsy (~03/2009) History of lumpectomy of left breast (~04/2009) History of lung surgery (~07/2019) History of lung surgery (~05/2020) History of tonsillectomy History of tubal ligation Social History Social History Household Members: Children Housing: House Alcohol intake: never Patient Tobacco Use Status: Former Tobacco user Years Smoked: 35pyh - quit 1997 Advance Directives: Yes Advance Directives Information Provided: No Advance Directives on File: No service: No Current occupational status: disabled Physical Exam Vital Signs: Vital Signs: Last Vital Signs Temp 96.7 F L 06/08/22 11:25 Pulse 98 06/08/22 14:45 Resp 18 06/08/22 14:45 BP 144/75 H 06/08/22 14:45 Pulse Ox 96 06/08/22 14:45 O2 Del Method 06/08/22 14:45 O2 Flow Rate 2 06/08/22 14:45 Oxygen Flow Rate 2 06/08/22 11:25 BMI result Body Mass Index 24.7 Const: Other: in pain General: cooperative and no acute distress Orie ntation/consciousness: patient oriented x3 Limitations: no limitations HEENT: Head: Yes normal to inspection and Yes atraumatic Ears: hearing grossly normal bilaterally (Pt hard of hearing) General nose exam: Normal external nose present Face and sinus: Yes normal facial exam Eyes: General: appearance normal, both eyes and all related structures EOM: EOMs intact bilaterally Neck: Neck: Yes normal visual inspection and Yes no meningeal signs Resp: Effort & Inspection: normal respiratory effort (on chronic O2) and no respiratory distress Auscultation: clear to auscultation bilaterally, no rales, no rhonchi and no wheezes Cardio: Rate: regular rate Heart sounds: S1 normal heart sound present and S2 normal heart sound present GI: Inspection: Yes normal to inspection Palpation (GI): Soft to palpation, nontender, no guarding and not rigid : General: Yes no CVA tenderness Back/Spine/Pelvis: Back: no CVA tenderness Thoracic/Lumbar Spine: paraspinal muscle tenderness Skin: Other: + vesicular rash noted to left flank extending beneath the left breast with slight erythematous base. No open wounds/lesions. Rashes: rashes noted Wounds: no wounds Neuro: General: patient oriented x3, tone normal and no meningeal signs Gait exam (Neuro): Normal gait present Extrem: General: Yes normal to inspection and Yes no pedal edema Course Course Course Narrative: XR chest 1V IMPRESSION: No acute cardiopulmonary process. Results discussed with patient including worrisome signs and symptoms and strict return precautions, and when to return to the emergency department. They verbalized understanding and feel safe for discharge at this time. Medications Administered Discontinued Medications Generic Name Dose Route Start Last Admin Trade Name Freq PRN Reason Stop Dose Admin Albuterol Sulfate 2.5 mg/ 0 mg 06/08/22 13:26 06/08/22 13:59 [employer]pr[employer] 0.5 mg INHALE 06/08/22 13:27 2.5 each ONCE ONE Administration Gabapentin 300 mg 06/08/22 12:32 06/08/22 13:22 Gabapentin 300 Mg Capsule PO 06/08/22 12:33 300 mg ONCE ONE Administration Oxycodone HCl 5 mg 06/08/22 14:11 06/08/22 14:32 Oxycodone Hcl Immed Release 5 Mg Tablet PO 06/08/22 14:12 5 mg ONCE ONE Administration Valacyclovir HCl 1,000 mg 06/08/22 12:32 06/08/22 13:22 Valacyclovir Hcl 1,000 Mg Tablet PO 06/08/22 12:33 1,000 mg ONCE ONE Administration Medical Decision Making Medical Decision Making MDM Narrative: 77y/o female with PMHx of COPD on chronic O2, lung CA, chronic bronchitis, PE on Coumadin, presenting to the ED complaining left flank pain since Sunday. On exam vital signs stable, lungs CTA, patient on baseline O2, no pedal edema. Zoster rash noted to left flank extending to left abdomen in a dermatomal fashion. No overlying/underlying cellulitis. No open wounds. Plan: P.o. Valtrex, gabapentin, CXR Please refer to course for remaining clinical decision making, interpretation of labs/imaging results, and discussions with consultants and/or family members. Differential Diagnosis Differential Diagnoses: The differential diagnosis associated with the presentation includes Radiology Impression Discussion of test interpretation with radiology: I have reviewed the radiologist's reading. External Record Review External record reviewed: Office record, Outpatient record, Prior outpatient labs, Prior outpatient radiology and Primary care record Prescription Management I considered prescription management with: Pain Medication and Antiviral Chronic Conditions Patient?s care impacted by: Cancer and Other Discharge Plan Discharge Clinical Impression: Herpes zoster Patient Disposition: Home, Self-Care Instructions: Shingles (ED) Additional Instructions: You shingles. Valtrex is a antiviral medication please take as prescribed. Gabapentin is for neuropathic pain, take as needed [place] as an opiate pain medication, take only when pain is severe for the next 3 days Continue home prescribed medications This disease can be spread, avoid older people, people and children. Rash is contagious until fully crusts over If area begins look infected, is red, you fever or drainage from area return to the emergency department Shingles, also known as herpes zoster, is a painful rash caused by varicella- zoster virus (the same virus that causes chickenpox). After a person has had chickenpox, the virus continues to reside in the body, causing no symptoms. Later in life, it can become active again, causing the shingles rash. The term shingles comes from the Latin word cingulum, which means belt or girdle; this is because the rash usually appears in a band or belt-like pattern. Shingles can affect people of all ages. It is particularly common in adults over age 50 years. It is also more common in people of all ages with conditions that weaken the immune system. Prescriptions: New valacyclovir 1 gram tablet 1,000 mg PO TID 7 Days Qty: 21 0RF gabapentin 100 mg capsule 100 mg PO TID PRN (Reason: pain (scale score 4-6)) Qty: 15 0RF hydrocodone-acetaminophen 5-325 mg tablet 1 tab PO Q8H PRN (Reason: pain, severe) 3 Days Qty: 5 0RF Rx Instructions: Partial Fill upon patient request. No Action formoterol fumarate [Perforomist] 20 mcg/2 mL solution for nebulization 2 ml inhalation Q12H 15 Days Qty: 60 0RF azithromycin 250 mg tablet 250 mg PO Q48H 90 Days Qty: 45 2RF prednisone 20 mg tablet 20 mg PO DAILY Qty: 30 1RF ipratropium-albuterol 0.5 mg-3 mg(2.5 mg base)/3 mL solution for nebulization 3 ml inhalation Q6H PRN (Reason: for wheezing) Qty: 270 3RF lorazepam 0.5 mg tablet 0.5 mg PO TID PRN (Reason: anxiety/resp. distress) 30 Days Qty: 45 3RF lorazepam 0.5 mg tablet 0.5 mg PO TID PRN (Reason: anxiety) 30 Days Qty: 90 2RF albuterol sulfate [Ventolin HFA] 90 mcg/actuation HFA aerosol inhaler 2 puff INHALATION Q4-6H PRN (Reason: Wheezing) formoterol fumarate [Perforomist] 20 mcg/2 mL solution for nebulization 2 ml inhalation BID@0000,1200 warfarin [Jantoven] 3 mg tablet 3 mg PO SUTUWETHFRSA@1800 Protocol: Dose Management Condition: Sunday (Week One) Dose/Route: 1.5 mg Instruction: 0.5 x 3 mg tablets Condition: Sunday Dose/Route: 0 mg Instruction: 0 tablets Condition: Sunday Dose/Route: 1.5 mg Instruction: 0.5 x 3 mg tablets Condition: Sunday Dose/Route: 1.5 mg Instruction: 0.5 x 3 mg tablets Condition: Dose/Route: 3 mg Instruction: 1 x 3 mg tablet Condition: Sunday Dose/Route: 3 mg Instruction: 1 x 3 mg tablet Condition: Sunday Dose/Route: 1.5 mg Instruction: 0.5 x 3 mg tablets Condition: Sunday (Week Two) Dose/Route: 1.5 mg Instruction: 0.5 x 3 mg tablets Condition: Sunday Dose/Route: 1.5 mg Instruction: 0.5 x 3 mg tablets Condition: Sunday Dose/Route: 1.5 mg Instruction: 0.5 x 3 mg tablets Condition: Sunday Dose/Route: 1.5 mg Instruction: 0.5 x 3 mg tablets Condition: Dose/Route: 3 mg Instruction: 1 x 3 mg tablet Condition: Sunday Dose/Route: 1.5 mg Instruction: 0.5 x 3 mg tablets Condition: Sunday Dose/Route: 1.5 mg Instruction: 0.5 x 3 mg tablets Protocol Text: Adjustment Start Date: 05/25/22 INR Value: 1.9 INR Date: 05/25/22 Recheck Date: 06/08/22 Additional Instructions: take 3mg today and tomm then cont prev dosing no greens for 2 days call with any medication changes warfarin 3 mg Tablet 1.5 mg PO WE@1800 Protocol: Dose Management Condition: Sunday (Week One) Dose/Route: 1.5 mg Instruction: 0.5 x 3 mg tablets Condition: Sunday Dose/Route: 0 mg Instruction: 0 tablets Condition: Sunday Dose/Route: 1.5 mg Instruction: 0.5 x 3 mg tablets Condition: Sunday Dose/Route: 1.5 mg Instruction: 0.5 x 3 mg tablets Condition: Dose/Route: 3 mg Instruction: 1 x 3 mg tablet Condition: Sunday Dose/Route: 3 mg Instruction: 1 x 3 mg tablet Condition: Sunday Dose/Route: 1.5 mg Instruction: 0.5 x 3 mg tablets Condition: Sunday (Week Two) Dose/Route: 1.5 mg Instruction: 0.5 x 3 mg tablets Condition: Sunday Dose/Route: 1.5 mg Instruction: 0.5 x 3 mg tablets Condition: Sunday Dose/Route: 1.5 mg Instruction: 0.5 x 3 mg tablets Condition: Sunday Dose/Route: 1.5 mg Instruction: 0.5 x 3 mg tablets Condition: Dose/Route: 3 mg Instruction: 1 x 3 mg tablet Condition: Sunday Dose/Route: 1.5 mg Instruction: 0.5 x 3 mg tablets Condition: Sunday Dose/Route: 1.5 mg Instruction: 0.5 x 3 mg tablets Protocol Text: Adjustment Start Date: 05/25/22 INR Value: 1.9 INR Date: 05/25/22 Recheck Date: 06/08/22 Additional Instructions: take 3mg today and tomm then cont prev dosing no greens for 2 days call with any medication changes tramadol 50 mg tablet 50 mg PO TID PRN cholecalciferol (vitamin D3) 50 mcg (2,000 unit) capsule 50 mcg PO DAILY Referrals: Angel Montiel MD [Primary Care Provider] - 5 days Interventions: ED Discharge Assessment Last Done: 06/08/22 16:09 Discharge Date/Time: 06/08/22 16:10
[2022-06-08] MEDS: Gabapentin 300 MG CAPSULE PO (13:22)
[2022-06-08] MEDS: valACYclovir HCL 1,000 MG TABLET 1000 MG PO (13:22)
[2022-06-08 13:59] VITALS: PULSE 89; RESP 18; O2SAT 98
[2022-06-08] MEDS: oxyCODONE HCl Immed Release 5 MG TABLET PO (14:32)
[2022-06-08 14:45] VITALS: BP 144/75; PULSE 98; RESP 18; O2SAT 96
== END 2022-06-08 16:10 | disposition home or self-care (01) ==
PROVIDERS: Emergency Provider Student in an Organized Health Care Education/Training Program; PCP Internal Medicine
DX: M54.50 Low back pain, unspecified (principal); B02.9 Zoster without complications; Z87.891 Personal history of nicotine dependence; J44.9 Chronic obstructive pulmonary disease, unspecified; Z79.01 Long term (current) use of anticoagulants; Z99.81 Dependence on supplemental oxygen
CPT/HCPCS: 71045; 94640; 99284

== ENCOUNTER 2022-06-09 12:45 | Outpatient (REF) | payer MEDICARE, SELFPAY ==
[2022-06-09 12:34] LABS: INTERNATIONAL NORM RATIO 2.1 (0.9-1.1); Prothrombin Time 25.3 SEC (10.0-13.1)
== END 2022-06-09 12:46 | disposition home or self-care (01) ==
LOC: HO.LHD 12:45
PROVIDERS: Visit Provider Internal Medicine
DX: Z86.711 Personal history of pulmonary embolism (principal)
CPT/HCPCS: 36415; 85610

== ENCOUNTER 2022-06-09 15:20 | Outpatient (REF) | payer MEDICARE, SELFPAY | END 2022-06-09 15:21 | disposition home or self-care (01) | LOC: HO.LAB 15:20 | PROVIDERS: Visit Provider Internal Medicine | DX: Z13.89 Encounter for screening for other disorder (principal) ==

== ENCOUNTER 2022-06-16 05:43 | Outpatient (REF) | payer MEDICARE, SELFPAY ==
[2022-06-16 08:58] LABS: INTERNATIONAL NORM RATIO 1.7 (0.9-1.1); Prothrombin Time 19.9 SEC (10.0-13.1)
== END 2022-06-16 05:44 | disposition home or self-care (01) ==
LOC: HO.LHD 05:43
PROVIDERS: Visit Provider Internal Medicine
DX: I26.99 Other pulmonary embolism without acute cor pulmonale (principal); Z51.81 Encounter for therapeutic drug level monitoring; Z79.01 Long term (current) use of anticoagulants
CPT/HCPCS: 36415; 85610

== ENCOUNTER 2022-06-23 12:42 | Outpatient (REF) | payer MEDICARE, SELFPAY ==
[2022-06-23 10:21] LABS: INTERNATIONAL NORM RATIO 3.3 (0.9-1.1); Prothrombin Time 39.8 SEC (10.0-13.1)
== END 2022-06-23 12:43 | disposition home or self-care (01) ==
LOC: HO.LHD 12:42
PROVIDERS: Visit Provider Internal Medicine
DX: I26.99 Other pulmonary embolism without acute cor pulmonale (principal); Z51.81 Encounter for therapeutic drug level monitoring; Z79.01 Long term (current) use of anticoagulants
CPT/HCPCS: 36415; 85610

== ENCOUNTER → 2022-06-30 13:58 | Outpatient (BNVA) | payer MEDICARE, SELFPAY | PROVIDERS: PCP Internal Medicine; Visit Provider Internal Medicine | DX: Z79.01 Long term (current) use of anticoagulants (principal) ==

== ENCOUNTER 2022-07-03 07:10 | Outpatient (REF) | payer MEDICARE, SELFPAY ==
[2022-07-03 10:50] LABS: INTERNATIONAL NORM RATIO 1.9 (0.9-1.1); Prothrombin Time 22.8 SEC (10.0-13.1)
== END 2022-07-03 07:11 | disposition home or self-care (01) ==
LOC: HO.LHD 07:10
PROVIDERS: Visit Provider Internal Medicine
DX: I26.99 Other pulmonary embolism without acute cor pulmonale (principal)
CPT/HCPCS: 36415; 85610

== ENCOUNTER 2022-07-10 09:31 | Outpatient (REF) | payer MEDICARE, SELFPAY ==
[2022-07-10 11:42] LABS: INTERNATIONAL NORM RATIO 1.6 (0.9-1.1); Prothrombin Time 18.9 SEC (10.0-13.1)
== END 2022-07-10 09:32 | disposition home or self-care (01) ==
LOC: HO.LHD 09:31
PROVIDERS: Visit Provider Internal Medicine
DX: I26.99 Other pulmonary embolism without acute cor pulmonale (principal); Z51.81 Encounter for therapeutic drug level monitoring; Z79.01 Long term (current) use of anticoagulants
CPT/HCPCS: 36415; 85610

== ENCOUNTER → 2022-07-11 11:54 | Outpatient (BNVA) | payer MEDICARE, SELFPAY | PROVIDERS: PCP Internal Medicine; Visit Provider Internal Medicine ==

== ENCOUNTER 2022-07-17 06:41 | Outpatient (REF) | payer MEDICARE, SELFPAY ==
[2022-07-17 11:05] LABS: INTERNATIONAL NORM RATIO 1.2 (0.9-1.1); Prothrombin Time 13.5 SEC (10.0-13.1)
== END 2022-07-17 06:42 | disposition home or self-care (01) ==
LOC: HO.LHD 06:41
PROVIDERS: Visit Provider Internal Medicine
DX: I26.99 Other pulmonary embolism without acute cor pulmonale (principal); Z51.81 Encounter for therapeutic drug level monitoring; Z79.01 Long term (current) use of anticoagulants
CPT/HCPCS: 36415; 85610

== ENCOUNTER → 2022-07-18 13:48 | Outpatient (BNVA) | payer MEDICARE, SELFPAY | PROVIDERS: PCP Internal Medicine; Visit Provider Internal Medicine | DX: J44.9 Chronic obstructive pulmonary disease, unspecified (principal); J96.91 Respiratory failure, unspecified with hypoxia; J42 Unspecified chronic bronchitis; F41.9 Anxiety disorder, unspecified | CPT/HCPCS: 99212 ==

== ENCOUNTER 2022-07-21 | Outpatient (REF) | payer MEDICARE, SELFPAY ==
[2022-07-21 10:26] LABS: INTERNATIONAL NORM RATIO 4.1 (0.9-1.1); Prothrombin Time 49.8 SEC (10.0-13.1)
== END 2022-07-21 00:01 | disposition home or self-care (01) ==
LOC: HO.LHD
PROVIDERS: Visit Provider Internal Medicine
DX: I26.99 Other pulmonary embolism without acute cor pulmonale (principal); Z51.81 Encounter for therapeutic drug level monitoring; Z79.01 Long term (current) use of anticoagulants
CPT/HCPCS: 36415; 85610

== ENCOUNTER 2022-07-23 07:58 | Emergency (ER) | payer MEDICARE, SELFPAY ==
[2022-07-23] VITALS (16 sets, daily range): BP systolic 132–186; BP diastolic 69–110; PULSE 54–99; RESP 16–20; TEMP 36.6–36.9; O2SAT 94–100; BMI 22.8
--- NOTE | ~2022-07-23 | CT_ITS ---
EXAMINATION: CT CHEST, ABDOMEN AND PELVIS WITH CONTRAST CLINICAL INFORMATION: Fall. Pain. Patient on Coumadin. Patient with history of lung cancer and bilateral VATS procedure. COMPARISON: CT scan of the pelvis dated 02/16/2022 CT scan of the chest dated 11/18/[address] scans of the chest dating back to at least 05/23/2020. CT scan of the abdomen and pelvis dated 08/18/2018. TECHNIQUE: Multidetector CT helical images of the chest, abdomen and pelvis were performed following the administration of 85 mL of intravenous Omnipaque 350. The data set was reformatted in the coronal and sagittal planes and reviewed on an independent workstation. This CT examination was performed using dose optimization techniques as appropriate, variously including the following: *Automated exposure control *Adjustment of mA and/or kV according to patient size (this includes techniques or standardized protocols for targeted exams where dose is matched to indication/reason for exam; i.e. extremities or head) *Use of iterative reconstruction technique DLP: 272 mGy-cm. FINDINGS: CHEST: LUNGS: There is evidence of bilateral procedure in the lung apices bilaterally. Chronic linear areas of scarring noted bilaterally. Some subpleural reticulation and linear opacity in the anterolateral right lower lobe seen, consistent with atelectasis or scarring. Moderate centrilobular emphysema seen. No effusion or pneumothorax is seen. Central airways are patent. Please see lymphovascular structures section for description upper left hilar nodular area. LYMPHOVASCULAR STRUCTURES: Ascending aorta borderline normal in size with maximal AP diameter at the level of the right main pulmonary artery measuring 3.7 cm. Mild atherosclerotic calcifications of the aorta and great vessels. Mild coronary artery calcifications. Heart size are normal. No pericardial effusion is seen. No significant mediastinal or axillary adenopathy is present. There is again noted left hilar adenopathy, measuring 1.6 cm in short axis and 2.4 cm anteroposteriorly (series 29, images 155 through 174), causing extrinsic mass effect upon the pulmonary arterial bifurcation. Alternatively, this finding may represent a central enlarging pulmonary nodule. Asymmetric chronic pulmonary arterial thrombus could be considered in the differential, though is felt to be less likely given components of this structure which appear to be definitely outside of the central pulmonary arteries. THYROID GLAND: There is a smoothly marginated 1.8 x 1.5 cm hypoenhancing nodule in the right lobe of the thyroid gland, only minimally included on previous CT scans. Further evaluation of this finding with thyroid ultrasound is recommended. CHEST: Again noted is a lobulated 1.3 x 0.9 cm nodular asymmetry in the inner left breast at the level of the nipple (series 27, image 35), unchanged dating back to at least 05/23/2020, consistent with a benign finding. BONES: There are multiple old fracture deformities seen bilaterally, including the following: Right anterior fourth rib, right lateral sixth rib, right posterior ninth rib, right lateral eighth rib, right posterior medial 10th rib at the costovertebral junction, the right anterior seventh rib, right anterolateral eighth rib (fractured in 2 places), right anterior ninth rib, and right lateral 10th rib Left anterolateral sixth rib, left lateral seventh rib, left lateral ninth rib, left anterior eighth rib left lateral 10th rib ABDOMEN AND PELVIS: LIVER, GALLBLADDER, BILIARY TREE: Liver normal size and attenuation. No focal cystic or solid mass or intra-or extrahepatic ductal dilatation. Hepatic and portal veins patent. The gallbladder partially distended and within normal limits. PANCREAS: Diffuse pancreatic parenchymal atrophy with fatty infiltration, most prominent in the pancreatic head. No ductal dilatation, mass, or surrounding stranding. SPLEEN: Normal size and appearance. Splenic vein patent. ADRENAL GLANDS AND KIDNEYS: Adrenal glands normal. Kidneys bilaterally symmetric in size and function. A few punctate 1 to 2 mm calcifications are seen in the mid and upper pole of the right kidney and in the upper pole of the left kidney, question vascular calcifications versus tiny nonobstructing calculi. No focal mass, hydronephrosis, or perinephric stranding. URETERS AND BLADDER: Ureters decompressed and within normal limits. Bladder partially distended and within normal limits. PELVIC VISCERA: Unremarkable. BOWEL LOOPS: Moderate sigmoid colonic diverticulosis and other scattered pancolonic diverticula are noted. No evidence of acute diverticulitis. Small and large bowel loops decompressed. Appendix surgically absent. ABDOMINAL WALL: There is a tiny fat-containing umbilical hernia. LYMPHOVASCULAR STRUCTURES: Abdominal aorta normal in caliber with moderate atherosclerotic calcification seen. Course of the aorta is tortuous, paralleling the prominent convex left lumbar scoliosis.. No periaortic collections. No abdominal or pelvic adenopathy or free fluid collection. No intra-abdominal hematoma MUSCULOSKELETAL STRUCTURES: No soft tissue contusion. Fatty marbling of the gluteal, paraspinal, and abdominal wall muscles is seen, consistent with deconditioning. Subacute/old fracture deformity of the posterior right ninth rib is seen. There is also acute fracture of the left superior and inferior pubic rami, nondisplaced. The pubic symphysis remains intact. Prominent convex left thoracolumbar scoliosis is seen with diffuse osteopenia and multilevel mild to moderate vertebral spondylosis, most prominent in the mid and upper lumbar spine. Superior endplate compression deformity at T10 partially included, new compared to 08/18/2018. Prominent Schmorl's node seen at T11 and T12 at the superior endplates, similar to the prior exam. Severe facet arthropathy is seen in the lumbar spine. Left femoral compression screw with long stem intramedullary bruce is partially imaged. Extensive surrounding hypertrophic/heterotopic bone formation noted. Abnormal sclerotic densities in the femoral head seen bilaterally, consistent with chronic AVN. CT/CT abdomen pelvis w IV con IMPRESSION: 1. Acute nondisplaced fractures of the left superior and inferior pubic rami. 2. Superior endplate compression deformity at T10, new compared to 08/18/2018. 3. No evidence of intra-abdominal or retroperitoneal hematoma. 4. Multiple old bilateral rib fractures are seen, similar to the prior exam. 5. Persistent left hilar adenopathy is seen, similar to the previous exam. As discussed above, this structure causes extrinsic mass effect upon the pulmonary arterial bifurcation. Alternatively, this finding may represent a central pulmonary nodule. Asymmetric chronic pulmonary arterial thrombus could be considered in the differential, though is felt to be less likely given components of this structure which appear to be definitely outside of the central pulmonary arteries. Consider further evaluation with nonemergent PET CT scan. 6. Chronic nodular asymmetry in the inner left breast, unchanged dating back to at least 05/23/2020, consistent with a benign finding. 7. Hypodense 1.8 cm nodule in the right lobe of the thyroid gland. Further evaluation with thyroid ultrasound is recommended in the nonemergent setting. 8. Pancolonic diverticulosis with no evidence of acute diverticulitis. 9. Tiny fat-containing umbilical hernia.
--- NOTE | ~2022-07-23 | XR_ITS ---
EXAMINATION: XR SHOULDER, RIGHT CLINICAL INFORMATION: Fall. Pain. COMPARISON: Right shoulder CT dated 04/28/2019. TECHNIQUE: AP, Grashey, and scapular Y views of the right shoulder. FINDINGS: Chronic superior subluxation of the humeral head indicating underlying rotator cuff tendon tears. Bony remodeling of the acromial undersurface. Severe glenohumeral joint space narrowing with bony remodeling of the superior glenoid and marginal osteophytes, increased when compared to the prior CT. No acute fracture. No abnormal soft tissue calcification. XR/XR shoulder RT min 2V IMPRESSION: 1. Chronic superior subluxation of the humeral head with thickening of the underlying rotator cuff tendon tears. Bony remodeling of the acromial undersurface. 2. Severe glenohumeral osteoarthritis, increased when compared to the prior CT. 3. No acute fracture or dislocation.
--- NOTE | ~2022-07-23 | CT_ITS ---
EXAMINATION: CT HEAD WITHOUT CONTRAST CT CERVICAL SPINE WITHOUT CONTRAST CLINICAL INFORMATION: Fall on anticoagulation. Neck pain. COMPARISON: Most recent CT head and cervical spine dated 02/16/2022. TECHNIQUE: Contiguous axial imaging was performed from the skull base to vertex without intravenous administration of contrast. Contiguous axial CT images of the cervical spine were obtained without contrast. Sagittal and coronal reformats were provided and reviewed. This CT examination was performed using dose optimization techniques as appropriate, variously including the following: *Automated exposure control *Adjustment of mA and/or kV according to patient size (this includes techniques or standardized protocols for targeted exams where dose is matched to indication/reason for exam; i.e. extremities or head) *Use of iterative reconstruction technique DLP: 1827 mGy-cm FINDINGS: HEAD: There is no evidence of acute intracranial hemorrhage or territorial infarction. No abnormal mass effect or midline shift is seen. Benson to white matter differentiation is well preserved. No extra-axial fluid collections are identified. Prominence of the ventricles and sulci with periventricular hypoattenuation, consistent with diffuse atrophy and chronic microvascular ischemic disease, similar when compared to the prior examination. The osseous structures and soft tissues are normal. The mastoid air cells and visualized portions of the paranasal sinuses are well aerated. CERVICAL SPINE: Mild reversal of the normal cervical lordosis, unchanged. Grade 1 anterolisthesis of C4 on C5 and C5 on C6, unchanged. No acute fracture or subluxation. No loss of vertebral body height. Multilevel loss of intervertebral disc height with degenerative endplate changes, similar when compared to the prior examination. Prominent multilevel bilateral facet arthropathy and associated facet effusions, unchanged. No lytic or blastic osseous lesion. Unremarkable prevertebral soft tissues. No abnormal soft tissue mass or fluid collection. Stable right thyroid nodule. Visualized lung apices are clear. Multilevel bilateral neural foraminal stenosis, unchanged. CT/CT cervical spine wo IV con IMPRESSION: HEAD: No acute intracranial hemorrhage or mass effect. Diffuse atrophy and chronic microvascular ischemic disease, similar when compared to the prior examination. CERVICAL SPINE: No acute fracture or subluxation. Reversal of the normal cervical lordosis, unchanged. Grade 1 anterolisthesis of C4 on C5 and C5 on C6, unchanged. Multilevel degenerative disc disease and bilateral facet arthropathy with bilateral neural foraminal stenosis, unchanged.
--- NOTE | 2022-07-23 08:08 | ECG_ITS ---
Test Reason : FALL Blood Pressure : / mmHG Vent. Rate : 096 BPM Atrial Rate : 096 BPM P-R Int : 152 ms QRS Dur : 068 ms QT Int : 382 ms P-R-T Axes : 000 -17 135 degrees QTc Int : 482 ms Sinus rhythm with Premature atrial complexes Left ventricular hypertrophy with repolarization abnormality ( R in aVL ) Abnormal ECG When compared with ECG of 31-JAN-2022 11:51, T wave inversion now evident in Anterolateral leads Referred By: Dalia Lincoln Electronically Signed By:JOHN RECINOS MD
--- NOTE | 2022-07-23 08:13 | ED_ITS ---
HPI - Fall General Chief Complaint: Fall <Dalia Lincoln NP - Last Filed: 07/23/22 16:19> Stated Complaint: Fall, R shoulder injury per EMS <Dalia Lincoln NP - Last Filed: 07/23/22 16:19> Time Seen by Provider: 07/23/22 08:12 <Dalia Lincoln NP - Last Filed: 07/23/22 16:19> Source: patient and EMS <Dalia Lincoln NP - Last Filed: 07/23/22 16:19> Mode of arrival: EMS <Dalia Lincoln NP - Last Filed: 07/23/22 16:19> Limitations: no limitations <Dalia Lincoln NP - Last Filed: 07/23/22 16:19> History of Present Illness HPI Narrative: 77-year-old female with a history of COPD who is on 2 L of oxygen chronically, history of pulmonary embolism on Coumadin, lung cancer who presents to the ER after a fall yesterday. Patient reports she was walking and she went to hold on to a plastic cigarette container but the container fell so she fell landing on her back. She denies hitting her head or loss of consciousness. She reports right shoulder pain, left hip pain, back pain. Unable to walk since the fall <Dalia Lincoln NP - Last Filed: 07/23/22 16:19> Related Data Home Medications: Home Medications Medication Instructions Recorded Confirmed cholecalciferol (vitamin D3) 50 50 mcg PO DAILY 06/14/21 07/23/22 mcg (2,000 unit) capsule warfarin 3 mg tablet 3 mg PO MOTH@1800 07/24/21 07/23/22 warfarin 3 mg tablet (Jantoven) 1.5 mg PO SUTUWEFRSA@1800 07/24/21 07/23/22 diclofenac sodium 1 % topical gel 1 ea topical TID PRN Pain 06/09/22 07/23/22 oxycodone 5 mg tablet 5 - 10 mg PO Q6H 06/09/22 07/23/22 albuterol sulfate 90 mcg/actuation 2 puff PO Q6H 07/23/22 07/23/22 aerosol inhaler (Ventolin HFA) azithromycin 250 mg tablet 250 mg PO Q OTHER DAY copd/chronic 07/23/22 07/23/22 Bronchitis formoterol fumarate 20 mcg/2 mL 2 ml inhalation Q4H 07/23/22 07/23/22 solution for nebulization (Perforomist) ipratropium 0.5 mg-albuterol 3 mg 3 ml inhalation Q6H 07/23/22 07/23/22 (2.5 mg base)/3 mL nebulization soln lorazepam 0.5 mg tablet 0.5 mg PO BID PRN anxiety/resp. 07/23/22 07/23/22 distress Previous Rx's Medication Instructions Recorded prednisone 20 mg tablet 20 mg PO DAILY #30 tabs 07/11/22 <Dalia Lincoln NP - Last Filed: 07/23/22 16:19> Allergies/Adverse Reactions: Allergies Allergy/AdvReac Type Severity Reaction Status Date / Time No Known Allergies Allergy Verified 07/21/22 17:50 <Dalia Lincoln NP - Last Filed: 07/23/22 16:19> Review of Systems Review of Systems: Yes all other systems are reviewed and are negative <Dalia Lincoln NP - Last Filed: 07/23/22 16:19> Constitutional: Constitutional: Reports no additional constitutional complaints, Denies body ache(s), Denies chills, Denies fever(s), Denies headac he(s) and Denies weakness <Dalia Lincoln NP - Last Filed: 07/23/22 16:19> Eyes: Eyes: Reports no additional eye complaints and Denies change in vision <Dalia Lincoln NP - Last Filed: 07/23/22 16:19> ENT: Reports system reviewed and no additional complaints, except as documented, Denies dizziness, Denies headache(s), Denies nasal congestion, Denies nasal discharge and Denies neck pain <Dalia Lincoln NP - Last Filed: 07/23/22 16:19> Cardiovascular: Cardiovascular: Reports no additional cardiovascular complaints, Denies chest pain, Denies leg edema and Denies dyspnea <Dalia Lincoln NP - Last Filed: 07/23/22 16:19> Respiratory: Respiratory: Reports no additional respiratory complaints, Denies cough and Denies dyspnea <Dalia Lincoln NP - Last Filed: 07/23/22 16:19> Gastrointestinal: Gastrointestinal: Reports no additional gastrointestinal complaints, Denies abdominal pain, Denies diarrhea, Denies nausea and Denies vomiting <Dalia Lincoln NP - Last Filed: 07/23/22 16:19> Genitourinary: Genitourinary: Reports no additional female genitourinary complaints and Denies urinary incontinence <Dalia Lincoln NP - Last Filed: 07/23/22 16:19> Musculoskeletal: Musculoskeletal: Reports no additional musculoskeletal complaints, Denies back pain, Reports arthralgias, Denies joint swelling, Reports limited range of motion, Denies neck pain, Denies numbness and Denies tingling <Dalia Lincoln NP - Last Filed: 07/23/22 16:19> Integumentary/Breasts: Skin/Breast: Reports system reviewed and no additional complaints, except as docu and Denies rash <Dalia Lincoln NP - Last Filed: 07/23/22 16:19> Neurologic: Reports system reviewed and no additional complaints, except as documented, Denies Abnormal speech present, Denies dizziness, Denies headache(s), Denies numbness, Denies tingling and Denies weakness <Dalia Lincoln NP - Last Filed: 07/23/22 16:19> PMFSH Past Medical History Attestation statement: The following information was validated with the patient. <Dalia Lincoln NP - Last Filed: 07/23/22 16:19> Source: old records reviewed and nursing notes reviewed <Dalia Lincoln NP - Last Filed: 07/23/22 16:19> Medical History: Medical History Anxiety Cancer of upper lobe of left lung (~2020) Cancer of upper lobe of right lung (~2019) Chronic bronchitis Closed intertrochanteric fracture with routine healing (~2019) COPD (chronic obstructive pulmonary disease) Current use of anticoagulant therapy (~2011) History of left breast cancer (~2008) History of pulmonary embolism (~2011) Osteoporosis (~2018) Respiratory failure with hypoxia Tubular adenoma of colon (~2014) <Dalia Lincoln NP - Last Filed: 07/23/22 16:19> Surgical History: Surgical History History of appendectomy (~09/2012) History of colonoscopy (~07/2014) History of hip surgery (~11/2019) History of left breast biopsy (~03/2009) History of lumpectomy of left breast (~04/2009) History of lung surgery (~07/2019) History of lung surgery (~05/2020) History of tonsillectomy History of tubal ligation <Dalia Lincoln NP - Last Filed: 07/23/22 16:19> Social History Social History: Social History Household Members: Children Housing: House Alcohol intake: never Patient Tobacco Use Status: Former Tobacco user Years Smoked: 35pyh - quit 1998 Smoked in Last 30 Days: No Use of substances other than those prescribed or required for medical reasons: No Advance Directives: Yes Advance Directives Information Provided: Yes Advance Directives on File: No service: No Current occupational status: disabled <Dalia Lincoln NP - Last Filed: 07/23/22 16:19> Physical Exam Vital Signs: Vital Signs: Last Vital Signs Temp 98.3 F 07/24/22 05:30 Pulse 78 07/24/22 07:41 Resp 20 07/24/22 07:41 BP 153/95 H 07/24/22 05:30 Pulse Ox 96 07/24/22 07:41 O2 Del Method Room Air 07/24/22 07:41 O2 Flow Rate 2 07/24/22 05:30 Oxygen Flow Rate 2 07/23/22 08:05 BMI result Body Mass Index 22.8 <Dalia Lincoln NP - Last Filed: 07/23/22 16:19> Vital Signs: Last Vital Signs Temp 98.3 F 07/24/22 05:30 Pulse 78 07/24/22 07:41 Resp 20 07/24/22 07:41 BP 153/95 H 07/24/22 05:30 Pulse Ox 96 07/24/22 07:41 O2 Del Method Room Air 07/24/22 07:41 O2 Flow Rate 2 07/24/22 05:30 Oxygen Flow Rate 2 07/23/22 08:05 BMI result Body Mass Index 22.8 <BRODIE Cox - Last Filed: 07/24/22 08:24> Const: General: cooperative, healthy appearing, comfortable and no acute distress <Dalia Lincoln NP - Last Filed: 07/23/22 16:19> Orientation/consciousness: patient oriented x3 <Dalia Lincoln NP - Last Filed: 07/23/22 16:19> Limitations: no limitations <Dalia Lincoln NP - Last Filed: 07/23/22 16:19> HEENT: Head: Yes normal to inspection, No Hardy's sign and No raccoon eyes <Dalia Lincoln NP - Last Filed: 07/23/22 16:19> Ears: hearing grossly normal bilaterally and TM's normal bilaterally <Dalia Lincoln NP - Last Filed: 07/23/22 16:19> General nose exam: Normal external nose present <Dalia Lincoln NP - Last Filed: 07/23/22 16:19> Face and sinus: Yes normal facial exam <Dalia Lincoln NP - Last Filed: 07/23/22 16:19> Mouth: Normal oral and palatal mucosa present <Dalia Lincoln NP - Last Filed: 07/23/22 16:19> Throat: Yes posterior oropharynx normal <Dalia Lincoln NP - Last Filed: 07/23/22 16:19> Eyes: General: appearance normal, both eyes and all related structures <Dalia Lincoln NP - Last Filed: 07/23/22 16:19> Pupils: Equal, round and reactive pupils present <Dalia Lincoln NP - Last Filed: 07/23/22 16:19> Neck: Other: No cervical midline tenderness, step-offs or deformities <Dalia Lincoln NP - Last Filed: 07/23/22 16:19> Neck: Yes normal visual inspection <Dalia Lincoln NP - Last Filed: 07/23/22 16:19> Chest: Chest palpation & inspection: normal inspection of the chest <Dalia Lincoln LEAD MANUFACTURING ENGINEERING TECH - Last Filed: 07/23/22 16:19> Resp: Effort & Inspection: normal respiratory effort <Dalia Lincoln LEAD MANUFACTURING ENGINEERING TECH - Last Filed: 07/23/22 16:19> Auscultation: clear to auscultation bilaterally <Dlaia Lincoln LEAD MANUFACTURING ENGINEERING TECH - Last Filed: 07/23/22 16:19> Cardio: Rate: regular rate <Dalia Lincoln LEAD MANUFACTURING ENGINEERING TECH - Last Filed: 07/23/22 16:19> Rhythm: regular rhythm <Dalia Lincoln LEAD MANUFACTURING ENGINEERING TECH - Last Filed: 07/23/22 16:19> Peripheral pulses: Peripheral pulses 2+ throughout <Dalia Lincoln LEAD MANUFACTURING ENGINEERING TECH - Last Filed: 07/23/22 16:19> GI: Inspection: Yes normal to inspection <Dalia Lincoln LEAD MANUFACTURING ENGINEERING TECH - Last Filed: 07/23/22 16:19> Palpation (GI): Soft to palpation and nontender <Dalia Lincoln LEAD MANUFACTURING ENGINEERING TECH - Last Filed: 07/23/22 16:19> Auscultation: normal bowel sounds <Dalia Lincoln LEAD MANUFACTURING ENGINEERING TECH - Last Filed: 07/23/22 16:19> Back/Spine/Pelvis: Back/spine/pelvis image: 1. Small abrasion an area of ecchymosis <Dalia Lincoln LEAD MANUFACTURING ENGINEERING TECH - Last Filed: 07/23/22 16:19> Skin: General skin exam: no rashes or lesions noted <Dalia Lincoln LEAD MANUFACTURING ENGINEERING TECH - Last Filed: 07/23/22 16:19> Neuro: General: patient oriented x3, no focal motor deficits and normal sensation to monofilament <Dalia Lincoln LEAD MANUFACTURING ENGINEERING TECH - Last Filed: 07/23/22 16:19> Cranial nerves: Yes Equal, round and reactive pupils present <Dalia Lincoln LEAD MANUFACTURING ENGINEERING TECH - Last Filed: 07/23/22 16:19> Cognition (Neuro): normal cognition <Dalia Lincoln LEAD MANUFACTURING ENGINEERING TECH - Last Filed: 07/23/22 16:19> Speech: No Abnormal speech present <Dalia Lincoln NP - Last Filed: 07/23/22 16:19> Gait exam (Neuro): Normal gait present <Dalia Lincoln NP - Last Filed: 07/23/22 16:19> Motor exam (neuro): 5/5 motor strength present throughout <Dalia Lincoln NP - Last Filed: 07/23/22 16:19> Extrem: Other: There is tenderness the right proximal humerus with no obvious swelling or deformity. There is limited abduction due to pain. There are palpable radial and ulnar pulses. Sensation is intact distally. There is tenderness over the left anterior groin with no shortening, rotation, deformity of left lower extremity. Without palpable DP and PT pulses <Dalia Lincoln NP - Last Filed: 07/23/22 16:19> General: Yes normal to inspection <Dalia Lincoln NP - Last Filed: 07/23/22 16:19> Course Course Course Narrative: CT head and cervical spine show no acute finding. CT of the abdomen and pelvis shows an acute nondisplaced fracture of the left superior and inferior pubic rami, compression deformity at T10. Multiple old rib fractures are seen. No intra-abdominal or retroperitoneal hematoma. There is persistent left hilar adenopathy seen. This is causing some extrinsic mass effect upon the pulmonary artery bifurcation. Report spencer on this may represent a central pulmonary nodule or chronic arterial thrombus. Doubt thrombus as patient is currently on Coumadin with a therapeutic INR. Patient has history of lung cancer which she tells me was treated surgically at [facility]. She has not received any chemo or radiation and she tells me that this was not required. Patient is still having a considerable amount of pain. I do feel that she would need short-term rehab and physical therapy. I spoke to her and her family. We will place a physical therapy evaluation, case management consultation so patien t may go to short-term rehab. placed in physician observation <Dalia Lincoln NP - Last Filed: 07/23/22 16:19> Reevaluation(s) Reevaluation #1: 07/24/2022--822--Physician observation continued. Vital signs stable. Labs and imaging reviewed. Patient with nondisplaced left superior and inferior pubic rami fracture as well as compression deformity of T10. Pending PT/case management for suspected STR <BRODIE Cox - Last Filed: 07/24/22 08:24> Medications Administered Generic Name Dose Route Start Last Admin Trade Name Freq PRN Reason Stop Dose Admin Albuterol Sulfate 2 puff 07/23/22 14:30 07/24/22 07:45 Albuterol Sulfate 90 Mcg 8 Gm Inhaler INHALE 2 puff Q6H ANJELICA Administration Albuterol/Ipratropium 3 ml 07/23/22 18:00 07/24/22 06:08 Albuterol/Iprat 2.5/0.5mg 3 Ml Ampul.Neb INHALE Not Given RQ6H ANJELICA Lorazepam 0.5 mg 07/23/22 14:16 07/23/22 22:44 Lorazepam 0.5 Mg Tablet PO 0.5 mg BID PRN Administration anxiety/resp. distress Oxycodone HCl 10 mg 07/23/22 14:13 07/24/22 05:22 Oxycodone Hcl Immed Release 5 Mg Tablet PO 10 mg Q6H PRN Administration Pain, Moderate (Pain Scale 4-6 Discontinued Medications Generic Name Dose Route Start Last Admin Trade Name Freq PRN Reason Stop Dose Admin Albuterol Sulfate 5 mg 07/23/22 13:56 07/23/22 14:10 Albuterol Sulfate (0.083%) 2.5 Mg/3 Ml Vial.Neb INHALE 07/23/22 13:57 5 mg ONCE ONE Administration Albuterol/Ipratropium 3 ml 07/23/22 10:17 07/23/22 10:36 Albuterol/Iprat 2.5/0.5mg 3 Ml Ampul.Neb INHALE 07/23/22 10:18 3 ml ONCE ONE Administration Iohexol 100 ml 07/23/22 09:58 07/23/22 09:58 Iohexol 350 Mg/Ml 100 Ml Infus..Btl IV 07/23/22 09:59 85 ml ONCE ONE Administration Morphine Sulfate 2 mg 07/23/22 08:07 07/23/22 08:48 Morphine Sulfate 2 Mg/Ml Cartridge IVPUSH 07/23/22 08:08 2 mg ONCE ONE Administration Protocol Morphine Sulfate 2 mg 07/23/22 09:17 07/23/22 09:38 Morphine Sulfate 2 Mg/Ml Cartridge IVPUSH 07/23/22 09:18 2 mg ONCE ONE Administration Protocol Morphine Sulfate 4 mg 07/23/22 10:56 07/23/22 11:03 Morphine Sulfate 4 Mg/Ml Cartridge IVPUSH 07/23/22 10:57 4 mg ONCE ONE Administration Protocol Ondansetron HCl 4 mg 07/23/22 08:07 07/23/22 08:46 Ondansetron Hcl 4 Mg/2 Ml Vial IVPUSH 07/23/22 08:08 4 mg ONCE ONE Administration Oxycodone HCl 10 mg 07/23/22 11:24 07/23/22 12:36 Oxycodone Hcl Immed Release 5 Mg Tablet PO 07/23/22 11:25 10 mg ONCE ONE Administration Oxycodone HCl 10 mg 07/23/22 18:18 07/23/22 19:19 Oxycodone Hcl Immed Release 5 Mg Tablet PO 07/23/22 18:19 10 mg ONCE ONE Administration <Dalia Lincoln LEAD MANUFACTURING ENGINEERING TECH - Last Filed: 07/23/22 16:19> Medications Administered Generic Name Dose Route Start Last Admin Trade Name Freq PRN Reason Stop Dose Admin Albuterol Sulfate 2 puff 07/23/22 14:30 07/24/22 07:45 Albuterol Sulfate 90 Mcg 8 Gm Inhaler INHALE 2 puff Q6H ANJELICA Administration Albuterol/Ipratropium 3 ml 07/23/22 18:00 07/24/22 06:08 Albuterol/Iprat 2.5/0.5mg 3 Ml Ampul.Neb INHALE Not Given RQ6H ANJELICA Lorazepam 0.5 mg 07/23/22 14:16 07/23/22 22:44 Lorazepam 0.5 Mg Tablet PO 0.5 mg BID PRN Administration anxiety/resp. distress Oxycodone HCl 10 mg 07/23/22 14:13 07/24/22 05:22 Oxycodone Hcl Immed Release 5 Mg Tablet PO 10 mg Q6H PRN Administration Pain, Moderate (Pain Scale 4-6 Discontinued Medications Generic Name Dose Route Start Last Admin Trade Name Freq PRN Reason Stop Dose Admin Albuterol Sulfate 5 mg 07/23/22 13:56 07/23/22 14:10 Albuterol Sulfate (0.083%) 2.5 Mg/3 Ml Vial.Neb INHALE 07/23/22 13:57 5 mg ONCE ONE Administration Albuterol/Ipratropium 3 ml 07/23/22 10:17 07/23/22 10:36 Albuterol/Iprat 2.5/0.5mg 3 Ml Ampul.Neb INHALE 07/23/22 10:18 3 ml ONCE ONE Administration Iohexol 100 ml 07/23/22 09:58 07/23/22 09:58 Iohexol 350 Mg/Ml 100 Ml Infus..Btl IV 07/23/22 09:59 85 ml ONCE ONE Administration Morphine Sulfate 2 mg 07/23/22 08:07 07/23/22 08:48 Morphine Sulfate 2 Mg/Ml Cartridge IVPUSH 07/23/22 08:08 2 mg ONCE ONE Administration Protocol Morphine Sulfate 2 mg 07/23/22 09:17 07/23/22 09:38 Morphine Sulfate 2 Mg/Ml Cartridge IVPUSH 07/23/22 09:18 2 mg ONCE ONE Administration Protocol Morphine Sulfate 4 mg 07/23/22 10:56 07/23/22 11:03 Morphine Sulfate 4 Mg/Ml Cartridge IVPUSH 07/23/22 10:57 4 mg ONCE ONE Administration Protocol Ondansetron HCl 4 mg 07/23/22 08:07 07/23/22 08:46 Ondansetron Hcl 4 Mg/2 Ml Vial IVPUSH 07/23/22 08:08 4 mg ONCE ONE Administration Oxycodone HCl 10 mg 07/23/22 11:24 07/23/22 12:36 Oxycodone Hcl Immed Release 5 Mg Tablet PO 07/23/22 11:25 10 mg ONCE ONE Administration Oxycodone HCl 10 mg 07/23/22 18:18 07/23/22 19:19 Oxycodone Hcl Immed Release 5 Mg Tablet PO 07/23/22 18:19 10 mg ONCE ONE Administration <BRODIE Cox - Last Filed: 07/24/22 08:24> Medical Decision Making Medical Decision Making MDM Narrative: This is a 77-year-old female who had a mechanical fall yesterday who presents to the ER with complaints of right shoulder pain, left anterior hip pain and lower back pain. She is on the Coumadin for history of pulmonary embolisms. There is no reports of hitting of the head or loss of consciousness. Patient with swelling, tenderness over the right shoulder with limited range of motion, left anterior hip pain with no obvious shortening, rotation or deformity. Patient also with some abrasions and ecchymosis over the lower back with no midline tenderness, step-offs deformities. No flank tenderness. No abdominal pain. Patient has shortness of breath which she tells me is chronic for her. She is on oxygen as a history of COPD and lung cancer. Will obtain CT head/cervical spine/chest/abdomen, x-rays of right shoulder, l abs, EKG <Dalia Lincoln NP - Last Filed: 07/23/22 16:19> Differential Diagnosis Differential Diagnoses: The differential diagnosis associated with the presentation includes <Dalia Lincoln NP - Last Filed: 07/23/22 16:19> Retroperitoneal bleed, fracture, contusion <Dalia Lincoln NP - Last Filed: 07/23/22 16:19> Lab Data MDM Lab Attestation statement: I reviewed the patient's lab results. <Dalia Lincoln NP - Last Filed: 07/23/22 16:19> Result Diagrams: 07/23/22 08:41 07/23/22 08:42 <Dalia Lincoln NP - Last Filed: 07/23/22 16:19> Labs: Lab Results 07/23/22 07/23/22 07/23/22 Range/Units 08:41 08:41 08:41 WBC 13.6 H (4.8-10.8) X10*3/uL RBC 3.74 L (4.20-5.50) X10*6/uL Hgb 12.3 (12.0-16.0) g/dl Hct 38.9 (37.0-47.0) % MCV 104.0 H (80.0-98.0) fL MCH 32.9 (27.0-33.0) pg MCHC 31.6 (31.0-35.0) g/dl RDW 15.0 (11.0-16.0) % Plt Count 189 D (160-400) X10*3/uL MPV 10.3 (9.4-12.3) fL Immature Gran % (Auto) 1.2 H (0.0-0.4) % Neut % (Auto) 89.6 H (45-73) % Lymph % (Auto) 4.4 L (20-40) % Reagan % (Auto) 4.4 (2-11) % Eos % (Auto) 0.3 (0-4) % Baso % (Auto) 0.1 (0-2) % Lymph # (Auto) 0.6 L (1.2-4.9) X10*3/uL Reagan # (Auto) 0.6 (0.1-1.2) X10*3/uL Eos # (Auto) 0.0 (0.0-0.4) X10*3/uL Baso # (Auto) 0.0 (0.0-0.2) X10*3/uL Abs Immat Gran (auto) 0.16 H (0.00-0.03) X10*3/uL Absolute Neuts (auto) 12.2 H (2.0-8.3) x10*3/uL Absolute Nucleated RBC 0.000 (0.0-0.012) X10*3/uL Nucleated RBC % (auto) 0.0 (0.0-0.2) /100WBC PT 40.0 H (10.0-13.1) SEC INR 3.3 H (0.9-1.1) Sodium (135-145) mmol/L Potassium (3.3-5.1) mmol/L Chloride (96-108) mmol/L Carbon Dioxide (22-29) mmol/L Anion Gap (12-20) BUN (9-16) mg/dL Creatinine (0.5-1.4) mg/dL Estim Creat Clear Calc Estimated GFR Random Glucose (60-115) mg/dL Calcium (8.4-10.2) mg/dL Magnesium (1.6-2.6) mg/dL Total Bilirubin (0.0-1.0) mg/dL Direct Bilirubin (0.0-0.5) mg/dL AST (5-31) U/L ALT (0-31) U/L Alkaline Phosphatase (39-117) U/L Total Creatine Kinase (26-140) U/L Troponin I High Sens 40.4 H (<3.5-17.0) ng/L Total Protein (6.5-8.0) g/dL Albumin (3.5-5.0) g/dL COVID-19 ([facility]ANZA) (Negative) COVID-19 Clin Com 07/23/22 07/23/22 07/23/22 Range/Units 08:41 08:42 10:14 WBC (4.8-10.8) X10*3/uL RBC (4.20-5.50) X10*6/uL Hgb (12.0-16.0) g/dl Hct (37.0-47.0) % MCV (80.0-98.0) fL MCH (27.0-33.0) pg MCHC (31.0-35.0) g/dl RDW (11.0-16.0) % Plt Count (160-400) X10*3/uL MPV (9.4-12.3) fL Immature Gran % (Auto) (0.0-0.4) % Neut % (Auto) (45-73) % Lymph % (Auto) (20-40) % Reagan % (Auto) (2-11) % Eos % (Auto) (0-4) % Baso % (Auto) (0-2) % Lymph # (Auto) (1.2-4.9) X10*3/uL Reagan # (Auto) (0.1-1.2) X10*3/uL Eos # (Auto) (0.0-0.4) X10*3/uL Baso # (Auto) (0.0-0.2) X10*3/uL Abs Immat Gran (auto) (0.00-0.03) X10*3/uL Absolute Neuts (auto) (2.0-8.3) x10*3/uL Absolute Nucleated RBC (0.0-0.012) X10*3/uL Nucleated RBC % (auto) (0.0-0.2) /100WBC PT (10.0-13.1) SEC INR (0.9-1.1) Sodium 140 (135-145) mmol/L Potassium 4.3 (3.3-5.1) mmol/L Chloride 104 (96-108) mmol/L Carbon Dioxide 28 (22-29) mmol/L Anion Gap 12 (12-20) BUN 22 H (9-16) mg/dL Creatinine 1.12 (0.5-1.4) mg/dL Estim Creat Clear Calc 32.1 Estimated GFR 47 Random Glucose 83 (60-115) mg/dL Calcium 8.6 (8.4-10.2) mg/dL Magnesium 1.9 (1.6-2.6) mg/dL Total Bilirubin 1.7 H (0.0-1.0) mg/dL Direct Bilirubin 0.5 (0.0-0.5) mg/dL AST 16 (5-31) U/L ALT 25 (0-31) U/L Alkaline Phosphatase 66 (39-117) U/L Total Creatine Kinase 33 (26-140) U/L Troponin I High Sens (<3.5-17.0) ng/L Total Protein 5.3 L (6.5-8.0) g/dL Albumin 3.5 (3.5-5.0) g/dL COVID-19 ([facility]ZA) Negative (Negative) COVID-19 Clin Com See Note 07/23/22 Range/Units 12:28 WBC (4.8-10.8) X10*3/uL RBC (4.20-5.50) X10*6/uL Hgb (12.0-16.0) g/dl Hct (37.0-47.0) % MCV (80.0-98.0) fL MCH (27.0-33.0) pg MCHC (31.0-35.0) g/dl RDW (11.0-16.0) % Plt Count (160-400) X10*3/uL MPV (9.4-12.3) fL Immature Gran % (Auto) (0.0-0.4) % Neut % (Auto) (45-73) % Lymph % (Auto) (20-40) % Reagan % (Auto) (2-11) % Eos % (Auto) (0-4) % Baso % (Auto) (0-2) % Lymph # (Auto) (1.2-4.9) X10*3/uL Reagan # (Auto) (0.1-1.2) X10*3/uL Eos # (Auto) (0.0-0.4) X10*3/uL Baso # (Auto) (0.0-0.2) X10*3/uL Abs Immat Gran (auto) (0.00-0.03) X10*3/uL Absolute Neuts (auto) (2.0-8.3) x10*3/uL Absolute Nucleated RBC (0.0-0.012) X10*3/uL Nucleated RBC % (auto) (0.0-0.2) /100WBC PT (10.0-13.1) SEC INR (0.9-1.1) Sodium (135-145) mmol/L Potassium (3.3-5.1) mmol/L Chloride (96-108) mmol/L Carbon Dioxide (22-29) mmol/L Anion Gap (12-20) BUN (9-16) mg/dL Creatinine (0.5-1.4) mg/dL Estim Creat Clear Calc Estimated GFR Random Glucose (60-115) mg/dL Calcium (8.4-10.2) mg/dL Magnesium (1.6-2.6) mg/dL Total Bilirubin (0.0-1.0) mg/dL Direct Bilirubin (0.0-0.5) mg/dL AST (5-31) U/L ALT (0-31) U/L Alkaline Phosphatase (39-117) U/L Total Creatine Kinase (26-140) U/L Troponin I High Sens (<3.5-17.0) ng/L Total Protein (6.5-8.0) g/dL Albumin (3.5-5.0) g/dL COVID-19 ([facility]) Negative (Negative) COVID-19 Clin Com See Note <Dalia Lincoln NP - Last Filed: 07/23/22 16:19> Lab Results 07/23/22 07/23/22 07/23/22 Range/Units 08:41 08:41 08:41 WBC 13.6 H (4.8-10.8) X10*3/uL RBC 3.74 L (4.20-5.50) X10*6/uL Hgb 12.3 (12.0-16.0) g/dl Hct 38.9 (37.0-47.0) % MCV 104.0 H (80.0-98.0) fL MCH 32.9 (27.0-33.0) pg MCHC 31.6 (31.0-35.0) g/dl RDW 15.0 (11.0-16.0) % Plt Count 189 D (160-400) X10*3/uL MPV 10.3 (9.4-12.3) fL Immature Gran % (Auto) 1.2 H (0.0-0.4) % Neut % (Auto) 89.6 H (45-73) % Lymph % (Auto) 4.4 L (20-40) % Reagan % (Auto) 4.4 (2-11) % Eos % (Auto) 0.3 (0-4) % Baso % (Auto) 0.1 (0-2) % Lymph # (Auto) 0.6 L (1.2-4.9) X10*3/uL Reagan # (Auto) 0.6 (0.1-1.2) X10*3/uL Eos # (Auto) 0.0 (0.0-0.4) X10*3/uL Baso # (Auto) 0.0 (0.0-0.2) X10*3/uL Abs Immat Gran (auto) 0.16 H (0.00-0.03) X10*3/uL Absolute Neuts (auto) 12.2 H (2.0-8.3) x10*3/uL Absolute Nucleated RBC 0.000 (0.0-0.012) X10*3/uL Nucleated RBC % (auto) 0.0 (0.0-0.2) /100WBC PT 40.0 H (10.0-13.1) SEC INR 3.3 H (0.9-1.1) Sodium (135-145) mmol/L Potassium (3.3-5.1) mmol/L Chloride (96-108) mmol/L Carbon Dioxide (22-29) mmol/L Anion Gap (12-20) BUN (9-16) mg/dL Creatinine (0.5-1.4) mg/dL Estim Creat Clear Calc Estimated GFR Random Glucose (60-115) mg/dL Calcium (8.4-10.2) mg/dL Magnesium (1.6-2.6) mg/dL Total Bilirubin (0.0-1.0) mg/dL Direct Bilirubin (0.0-0.5) mg/dL AST (5-31) U/L ALT (0-31) U/L Alkaline Phosphatase (39-117) U/L Total Creatine Kinase (26-140) U/L Troponin I High Sens 40.4 H (<3.5-17.0) ng/L Total Protein (6.5-8.0) g/dL Albumin (3.5-5.0) g/dL COVID-19 (CONSTANZA) (Negative) COVID-19 Clin Com 07/23/22 07/23/22 07/23/22 Range/Units 08:41 08:42 10:14 WBC (4.8-10.8) X10*3/uL RBC (4.20-5.50) X10*6/uL Hgb (12.0-16.0) g/dl Hct (37.0-47.0) % MCV (80.0-98.0) fL MCH (27.0-33.0) pg MCHC (31.0-35.0) g/dl RDW (11.0-16.0) % Plt Count (160-400) X10*3/uL MPV (9.4-12.3) fL Immature Gran % (Auto) (0.0-0.4) % Neut % (Auto) (45-73) % Lymph % (Auto) (20-40) % Reagan % (Auto) (2-11) % Eos % (Auto) (0-4) % Baso % (Auto) (0-2) % Lymph # (Auto) (1.2-4.9) X10*3/uL Reagan # (Auto) (0.1-1.2) X10*3/uL Eos # (Auto) (0.0-0.4) X10*3/uL Baso # (Auto) (0.0-0.2) X10*3/uL Abs Immat Gran (auto) (0.00-0.03) X10*3/uL Absolute Neuts (auto) (2.0-8.3) x10*3/uL Absolute Nucleated RBC (0.0-0.012) X10*3/uL Nucleated RBC % (auto) (0.0-0.2) /100WBC PT (10.0-13.1) SEC INR (0.9-1.1) Sodium 140 (135-145) mmol/L Potassium 4.3 (3.3-5.1) mmol/L Chloride 104 (96-108) mmol/L Carbon Dioxide 28 (22-29) mmol/L Anion Gap 12 (12-20) BUN 22 H (9-16) mg/dL Creatinine 1.12 (0.5-1.4) mg/dL Estim Creat Clear Calc 32.1 Estimated GFR 47 Random Glucose 83 (60-115) mg/dL Calcium 8.6 (8.4-10.2) mg/dL Magnesium 1.9 (1.6-2.6) mg/dL Total Bilirubin 1.7 H (0.0-1.0) mg/dL Direct Bilirubin 0.5 (0.0-0.5) mg/dL AST 16 (5-31) U/L ALT 25 (0-31) U/L Alkaline Phosphatase 66 (39-117) U/L Total Creatine Kinase 33 (26-140) U/L Troponin I High Sens (<3.5-17.0) ng/L Total Protein 5.3 L (6.5-8.0) g/dL Albumin 3.5 (3.5-5.0) g/dL COVID-19 ([facility]) Negative (Negative) COVID-19 Clin Com See Note 07/23/22 Range/Units 12:28 WBC (4.8-10.8) X10*3/uL RBC (4.20-5.50) X10*6/uL Hgb (12.0-16.0) g/dl Hct (37.0-47.0) % MCV (80.0-98.0) fL MCH (27.0-33.0) pg MCHC (31.0-35.0) g/dl RDW (11.0-16.0) % Plt Count (160-400) X10*3/uL MPV (9.4-12.3) fL Immature Gran % (Auto) (0.0-0.4) % Neut % (Auto) (45-73) % Lymph % (Auto) (20-40) % Reagan % (Auto) (2-11) % Eos % (Auto) (0-4) % Baso % (Auto) (0-2) % Lymph # (Auto) (1.2-4.9) X10*3/uL Reagan # (Auto) (0.1-1.2) X10*3/uL Eos # (Auto) (0.0-0.4) X10*3/uL Baso # (Auto) (0.0-0.2) X10*3/uL Abs Immat Gran (auto) (0.00-0.03) X10*3/uL Absolute Neuts (auto) (2.0-8.3) x10*3/uL Absolute Nucleated RBC (0.0-0.012) X10*3/uL Nucleated RBC % (auto) (0.0-0.2) /100WBC PT (10.0-13.1) SEC INR (0.9-1.1) Sodium (135-145) mmol/L Potassium (3.3-5.1) mmol/L Chloride (96-108) mmol/L Carbon Dioxide (22-29) mmol/L Anion Gap (12-20) BUN (9-16) mg/dL Creatinine (0.5-1.4) mg/dL Estim Creat Clear Calc Estimated GFR Random Glucose (60-115) mg/dL Calcium (8.4-10.2) mg/dL Magnesium (1.6-2.6) mg/dL Total Bilirubin (0.0-1.0) mg/dL Direct Bilirubin (0.0-0.5) mg/dL AST (5-31) U/L ALT (0-31) U/L Alkaline Phosphatase (39-117) U/L Total Creatine Kinase (26-140) U/L Troponin I High Sens (<3.5-17.0) ng/L Total Protein (6.5-8.0) g/dL Albumin (3.5-5.0) g/dL COVID-19 ([facility]) Negative (Negative) COVID-19 Clin Com See Note <BRODIE Cox - Last Filed: 07/24/22 08:24> Independent Interpretation I performed an independent interpretation of an: EKG <Dalia Lincoln NP - Last Filed: 07/23/22 16:19> Interpretation: I indepedentely reviewed the EKG which shows sinus rhythm with PACs with a rate 96, normal QRS, normal QT I independently reviewed the x-ray, ct head/neck/abdomen/pelvis/chest and agree with radiologist's report <Dalia Lincoln NP - Last Filed: 07/23/22 16:19> Radiology Impression Discussion of test interpretation with radiology: I have reviewed the radiologist's reading. <Dalia Lincoln NP - Last Filed: 07/23/22 16:19> Radiologist Impression: FINDINGS: Chronic superior subluxation of the humeral head indicating underlying rotator cuff tendon tears. Bony remodeling of the acromial undersurface. Severe glenohumeral joint space narrowing with bony remodeling of the superior glenoid and marginal osteophytes, increased when compared to the prior CT. No acute fracture. No abnormal soft tissue calcification.? XR/XR shoulder RT min 2V IMPRESSION: 1. Chronic superior subluxation of the humeral head with thickening of the underlying rotator cuff tendon tears. Bony remodeling of the acromial undersurface. ? 2. Severe glenohumeral osteoarthritis, increased when compared to the prior CT. ? 3. No acute fracture or dislocation. IMPRESSION: HEAD: No acute intracranial hemorrhage or mass effect. Diffuse atrophy and chronic microvascular ischemic disease, similar when compared to the prior examination. ? CERVICAL SPINE: No acute fracture or subluxation. Reversal of the normal cervical lordosis, unchanged. Grade 1 anterolisthesis of C4 on C5 and C5 on C6, unchanged. Multilevel degenerative disc disease and bilateral facet arthropathy with bilateral neural foraminal stenosis, unchanged. CT/CT abdomen pelvis w IV con IMPRESSION: 1.? Acute nondisplaced fractures of the left superior and inferior pubic rami. 2.? Superior endplate compression deformity at T10, new compared to 08/18/2018. 3.? No evidence of intra-abdominal or retroperitoneal hematoma. 4.? Multiple old bilateral rib fractures are seen, similar to the prior exam. 5.? Persistent left hilar adenopathy is seen, similar to the previous exam. As discussed above, this structure causes extrinsic mass effect upon the pulmonary arterial bifurcation. Alternatively, this finding may represent a central pulmonary nodule. Asymmetric chronic pulmonary arterial thrombus could be considered in the differential, though is felt to be less likely given components of this structure which appear to be definitely outside of the central pulmonary arteries. Consider further evaluation with nonemergent PET CT scan. 6.? Chronic nodular asymmetry in the inner left breast, unchanged dating back to at least 05/23/2020, consistent with a benign finding. 7.? Hypodense 1.8 cm nodule in the right lobe of the thyroid gland. Further evaluation with thyroid ultrasound is recommended in the nonemergent setting. 8.? Pancolonic diverticulosis with no evidence of acute diverticulitis. 9.? Tiny fat-containing umbilical hernia. <Dalia Lincoln NP - Last Filed: 07/23/22 16:19> Independent Historian Clinical information obtained from an independent historian. History obtained from or confirmed by: EMS <Dalia Lincoln NP - Last Filed: 07/23/22 16:19> Discharge Plan Discharge Clinical Impression: Closed fracture of pubic ramus <Dalia Lincoln NP - Last Filed: 07/23/22 16:19> Patient Disposition: Still a Patient <Dalia Lincoln NP - Last Filed: 07/23/22 16:19> Prescriptions: No Action prednisone 20 mg tablet 20 mg PO DAILY Qty: 30 1RF warfarin [Jantoven] 3 mg tablet 1.5 mg PO [id number]@1800 Protocol: Dose Management Condition: Sunday (Week One) Dose/Route: 1.5 mg Instruction: 0.5 x 3 mg tablets Condition: Sunday Dose/Route: 3 mg Instruction: 1 x 3 mg tablet Condition: Sunday Dose/Route: 3 mg Instruction: 1 x 3 mg tablet Condition: Sunday Dose/Route: 3 mg Instruction: 1 x 3 mg tablet Condition: Dose/Route: 3 mg Instruction: 1 x 3 mg tablet Condition: Sunday Dose/Route: 0 mg Instruction: 0 tablets Condition: Sunday Dose/Route: 1.5 mg Instruction: 0.5 x 3 mg tablets Condition: Sunday (Week Two) Dose/Route: 1.5 mg Instruction: 0.5 x 3 mg tablets Condition: Sunday Dose/Route: 3 mg Instruction: 1 x 3 mg tablet Condition: Sunday Dose/Route: 1.5 mg Instruction: 0.5 x 3 mg tablets Condition: Sunday Dose/Route: 1.5 mg Instruction: 0.5 x 3 mg tablets Condition: Dose/Route: 3 mg Instruction: 1 x 3 mg tablet Condition: Sunday Dose/Route: 1.5 mg Instruction: 0.5 x 3 mg tablets Condition: Sunday Dose/Route: 1.5 mg Instruction: 0.5 x 3 mg tablets Protocol Text: Adjustment Start Date: Sunday07/21/22 INR Value: 4.1 INR Date: 07/21/22 Recheck Date: 07/28/22 Additional Instructions: INR is above range hold warfarin today take 1.5mg tomorr and Sunday, 3mg on sunday, 1.5mg Sunday and Sunday, 3mg on warfarin 3 mg Tablet 3 mg PO [id number]@1800 Protocol: Dose Management Condition: Sunday (Week One) Dose/Route: 1.5 mg Instruction: 0.5 x 3 mg tablets Condition: Sunday Dose/Route: 3 mg Instruction: 1 x 3 mg tablet Condition: Sunday Dose/Route: 3 mg Instruction: 1 x 3 mg tablet Condition: Sunday Dose/Route: 3 mg Instruction: 1 x 3 mg tablet Condition: Dose/Route: 3 mg Instruction: 1 x 3 mg tablet Condition: Sunday Dose/Route: 0 mg Instruction: 0 tablets Condition: Sunday Dose/Route: 1.5 mg Instruction: 0.5 x 3 mg tablets Condition: Sunday (Week Two) Dose/Route: 1.5 mg Instruction: 0.5 x 3 mg tablets Condition: Sunday Dose/Route: 3 mg Instruction: 1 x 3 mg tablet Condition: Sunday Dose/Route: 1.5 mg Instruction: 0.5 x 3 mg tablets Condition: Sunday Dose/Route: 1.5 mg Instruction: 0.5 x 3 mg tablets Condition: Dose/Route: 3 mg Instruction: 1 x 3 mg tablet Condition: Sunday Dose/Route: 1.5 mg Instruction: 0.5 x 3 mg tablets Condition: Sunday Dose/Route: 1.5 mg Instruction: 0.5 x 3 mg tablets Protocol Text: Adjustment Start Date: Sunday07/21/22 INR Value: 4.1 INR Date: 07/21/22 Recheck Date: 07/28/22 Additional Instructions: INR is above range hold warfarin today take 1.5mg tomorrow and Sunday, 3mg on sunday, 1.5mg Sunday and Sunday, 3mg on ipratropium-albuterol 0.5 mg-3 mg(2.5 mg base)/3 mL solution for nebulization 3 ml inhalation Q6H Rx Instructions: alternate with perforomist azithromycin 250 mg tablet 250 mg PO Q OTHER DAY lorazepam 0.5 mg tablet 0.5 mg PO BID PRN (Reason: anxiety/resp. distress) albuterol sulfate [Ventolin HFA] 90 mcg/actuation HFA aerosol inhaler 2 puff PO Q6H formoterol fumarate [Perforomist] 20 mcg/2 mL solution for nebulization 2 ml inhalation Q4H Rx Instructions: alternate with ipratropium cholecalciferol (vitamin D3) 50 mcg (2,000 unit) capsule 50 mcg PO DAILY oxycodone 5 mg tablet 5 - 10 mg PO Q6H diclofenac sodium 1 % gel 1 ea topical TID PRN (Reason: Pain) <Dalia Lincoln NP - Last Filed: 07/23/22 16:19>
[2022-07-23 08:46] LABS: MANUAL DIFF FLAG NO
[2022-07-23] MEDS: ondansetron HCL 4 MG/2 ML VIAL IVPUSH (08:46)
[2022-07-23] MEDS: Morphine Sulfate 2 MG/ML CARTRIDGE IVPUSH ×2 (08:48→09:38)
[2022-07-23 08:50] LABS: Basophils Percent Auto 0.1 % (0-2); Eosinophils Percent Auto 0.3 % (0-4); Hematocrit 38.9 % (37.0-47.0); Hemoglobin 12.3 g/dl (12.0-16.0); Imm Gran Abs Auto 0.16 X10*3/uL (0.00-0.03); Imm Gran Pct Auto 1.2 % (0.0-0.4); Lymphocytes Absolute Auto 0.6 X10*3/uL (1.2-4.9); Lymphocytes Percent Auto 4.4 % (20-40); Mean Corpuscular HGB Conc 31.6 g/dl (31.0-35.0); Mean Corpuscular Hemoglobin 32.9 pg (27.0-33.0); Mean Platelet Volume 10.3 fL (9.4-12.3); Monocytes Absolute Auto 0.6 X10*3/uL (0.1-1.2); Monocytes Percent Auto 4.4 % (2-11); Neutrophils Absolute Auto 12.2 x10*3/uL (2.0-8.3); Neutrophils Percent Auto 89.6 % (45-73); Platelet Count 189 X10*3/uL (160-400); Red Blood Count 3.74 X10*6/uL (4.20-5.50); White Blood Count 13.6 X10*3/uL (4.8-10.8)
[2022-07-23 08:53] LABS: INTERNATIONAL NORM RATIO 3.3 (0.9-1.1)
[2022-07-23 09:07] LABS: Alanine Aminotransferase 25 U/L (0-31); Albumin Level 3.5 g/dL (3.5-5.0); Alkaline Phosphatase 66 U/L (39-117); Anion Gap 12 (12-20); Aspartate Amino Transferase 16 U/L (5-31); Bilirubin Direct 0.5 mg/dL (0.0-0.5); Bilirubin Total 1.7 mg/dL (0.0-1.0); Blood Urea Nitrogen 22 mg/dL (9-16); Calcium 8.6 mg/dL (8.4-10.2); Carbon Dioxide 28 mmol/L (22-29); Chloride 104 mmol/L (96-108); Creatinine Clr Calc Pharmacy 32.1; Estimated Glomerular Filt Rate 47; Glucose Random 83 mg/dL (60-115); Magnesium 1.9 mg/dL (1.6-2.6); Potassium 4.3 mmol/L (3.3-5.1); Sodium 140 mmol/L (135-145); Total Protein 5.3 g/dL (6.5-8.0)
[2022-07-23 09:08] LABS: Troponin-I High Sensitivity 40.4 ng/L (<3.5-17.0)
--- NOTE | 2022-07-23 09:46 | PC.NURSE ---
pt a&ox4, hard of hearing, on 2L O2 via NC at baseline. changed over to hospotal gown, IV placed, labs drawn, EKG done. significant pain to the right side and back, medicated per jun. currently in CT. vss. wctm
[2022-07-23] MEDS: iohexoL 350 MG/ML 100 ML INFUS..BTL IV (09:58)
[2022-07-23 10:29] LABS: COVID-19 Test Negative (Negative); IDNOW Serial# 08D9AD1C
[2022-07-23] MEDS: Albuterol/Iprat 2.5/0.5MG 3 ML AMPUL.NEB INHALE ×2 (10:36→18:12)
[2022-07-23] MEDS: Morphine Sulfate 4 MG/ML CARTRIDGE IVPUSH (11:03)
--- NOTE | 2022-07-23 11:58 | MHC.CM.ED ---
PATIENT ASKS FOR A REFERRAL TO [facility], NOW PLACED. SHE DOES NOT HAVE ANOTHER CHOICE AT THIS TIME. HCP IS IN FILE AND VERIFIED. AWAITING PT EVAL.
--- NOTE | 2022-07-23 12:30 | MHC.EDTECH ---
Covid swab collected and sent
[2022-07-23] MEDS: oxyCODONE HCl Immed Release 5 MG TABLET 10 MG PO ×3 (12:36→22:44)
[2022-07-23 12:50] LABS: COVID-19 Test Negative (Negative); IDNOW Serial# 6674DD1D
[2022-07-23] MEDS: Albuterol Sulfate (0.083%) 2.5 MG/3 ML VIAL.NEB 5 MG INHALE (14:10)
--- NOTE | 2022-07-23 14:16 | PHA.MEDREC ---
Pharmacy Consult ? Medication Reconciliation Pharmacy has completed the medication reconciliation. spoke with patient. She was only unsure about the warfarin dosing since she has been switching regimens lately due to out of range INR. Per AC note from 07/21/22 in medical record: pt will hold her 1.5mg warfarin today then resume usual dosing 3mg Sunday and and 1.5mg all other days, pt noted dosing and read back accurate days and dosing
--- NOTE | 2022-07-23 15:04 | PC.NURSE ---
pt pleasant, calm, and cooperative. confused to the time of day but alert and oriented otherwise. still complaining of pain to the right side of the pt's body and mid back after medicated multiple times per mar. uses bedpan to void as too painful for the pt to get out of bed and complains of left hip pain. pt has complained of sob/needing breathing treatments and given an updraft x2 today by respiratory staff. audible crackles on inspiration. currently resting quietly in stretcher. rr even/unlabored. awaiting PT consult. vss. wctm
--- NOTE | 2022-07-23 19:55 | MHC.EDTECH ---
pt ate 50 % of dinner ,drank 240 ml fluids ,pt was given a bed bath ,bedding pure pure wick in place .
--- NOTE | 2022-07-23 21:41 | MHC.EDTECH ---
2200 rounding done ,vitals sign taken ,pt w3as reposition and boosted up in bed ,pt is dry and is resting quietly in bed .
[2022-07-23] MEDS: LORazepam 0.5 MG TABLET PO (22:44)
[2022-07-24] VITALS (8 sets, daily range): BP systolic 153–160; BP diastolic 77–95; PULSE 54–86; RESP 16–20; TEMP 36.2–36.8; O2SAT 95–97
[2022-07-24] MEDS: Albuterol/Iprat 2.5/0.5MG 3 ML AMPUL.NEB INHALE ×4 (00:49→23:02)
--- NOTE | 2022-07-24 01:54 | MHC.EDTECH ---
PT WAS TRANSFER TO HOSPITAL BED .
[2022-07-24] MEDS: Albuterol Sulfate 90 MCG 8 GM INHALER 2 PUFF INHALE ×2 (04:11→07:45)
--- NOTE | 2022-07-24 04:32 | PC.NURSE ---
Pt had lorazepam and oxycodone in purse at bedside meds taken and counted with second nurse, placed in white envelope and sealed. Pt refused to sign envelope, states I need those, I am leaving tomorrow, my son is picking me up, I will not sign .
[2022-07-24] MEDS: oxyCODONE HCl Immed Release 5 MG TABLET 10 MG PO ×3 (05:22→22:23)
--- NOTE | 2022-07-24 05:32 | MHC.EDTECH ---
ROUNDING DONE VITALS SIGN TAKEN PT AWAKE ALL NIGHT LONG .
--- NOTE | 2022-07-24 07:38 | PC.NURSE ---
Pt A&Ox2, states I can't breath, I need my breathing treatment that is in my purse, I need you to call the fourth floor . Pt speaking in full sentences, RR 20, sat O2 96% on 2L via NC. Lung sounds clear.
--- NOTE | 2022-07-24 08:26 | PC.NURSE ---
Physical therapist at bedside.
[2022-07-24] MEDS: predniSONE 20 MG TABLET PO (08:31)
[2022-07-24] MEDS: Cholecalciferol (Vitamin D3) 25 MCG TABLET 50 MCG PO (08:31)
[2022-07-24] MEDS: Azithromycin 250 MG TABLET PO (09:36)
[2022-07-24 10:21] LABS: INTERNATIONAL NORM RATIO 1.7 (0.9-1.1); Prothrombin Time 20.4 SEC (10.0-13.1)
[2022-07-24] MEDS: LORazepam 0.5 MG TABLET PO ×2 (11:01→23:02)
--- NOTE | 2022-07-24 12:03 | PC.NURSE ---
PT DAUGHTER IN LAW [employer] AT BEDSIDE. PT HAS BEEN DISGRUNTLED WITH NOT HAVING PAIN MEDICATIONS AT BEDSIDE, FRUSTRATED WITH HAVING TO BE HERE. ATTEMPTED TO EXPLAIN PROCESS OF ADMISSION TO SNF, AND DELAYS GIVEN HOLIDAY WEEKEND. PT HAS BEEN MEDICATED WITH ALL PRNS, REPOSITIONED FOR COMFORT, DIFFICULT TO SATISFY.
--- NOTE | 2022-07-24 14:32 | PC.NURSE ---
PT SLEEPING THIS AFTERNOON, WOKEN TO EAT LUNCH. NO COMPLAINTS OFFERED AT THIS TIME.
--- NOTE | 2022-07-24 17:15 | PC.NURSE ---
LINENS & PUREWICK CHANGED. PT PROVIDED WITH BED BATH, SKIN BARRIER LOTION APPLIED. NO OPEN AREAS AREAS NOTED. ABLE TO REPOSITION SELF WITH MINIMAL ASSISTANCE IN BED. ALERT, ORIENTED X2.
[2022-07-24] MEDS: Warfarin Sodium 3 MG TABLET PO (19:21)
[2022-07-25 00:28] VITALS: BP 142/92; PULSE 83; RESP 18; O2SAT 97
[2022-07-25] MEDS: Morphine Sulfate 4 MG/ML CARTRIDGE IVPUSH (00:30)
[2022-07-25] MEDS: ondansetron HCL 4 MG/2 ML VIAL IVPUSH (00:33)
--- NOTE | 2022-07-25 02:11 | PC.NURSE ---
pt appears to be more comfortable s/p previous medication administration. the pt is no longer yelling out for assistance and/or pain and appears to be more relaxed at this moment. call diaz remains in place, pt requires frequent repeating/reminding of what is to come and why she has the pain she is experiencing
[2022-07-25] MEDS: oxyCODONE HCl Immed Release 5 MG TABLET 10 MG PO ×2 (04:23→11:33)
[2022-07-25 05:48] VITALS: PULSE 83; RESP 18; O2SAT 95
[2022-07-25] MEDS: Albuterol/Iprat 2.5/0.5MG 3 ML AMPUL.NEB INHALE ×2 (05:48→11:48)
[2022-07-25 06:22] LABS: INTERNATIONAL NORM RATIO 1.6 (0.9-1.1); Prothrombin Time 18.6 SEC (10.0-13.1)
[2022-07-25 06:52] VITALS: BP 163/78; PULSE 78; RESP 16; O2SAT 94
[2022-07-25] MEDS: Acetaminophen 325 MG TABLET 650 MG PO (07:08)
[2022-07-25] MEDS: Cholecalciferol (Vitamin D3) 25 MCG TABLET 50 MCG PO (08:05)
[2022-07-25] MEDS: predniSONE 20 MG TABLET PO (08:05)
--- NOTE | 2022-07-25 08:36 | MHC.CM.ED ---
Addendum entered by Veronique Mcgarry 07/25/22 09:19: [facility] is able to accept patient. Patient can leave at 2pm. Melinda MACHADO booked. [facility] with chart. Patient aware and agreeable. T/W offered to call patient's family. Patient will contact her family. Patient, Jose David PARKER and Nettie CALLOWAY aware. Original Note: Patient remains in ER. Physical therapy eval completed. Short term rehab is recommended. Clinical updates sent to [facility]. Continue to monitor for d/c needs.
[2022-07-25 10:22] VITALS: BP 123/84; PULSE 93; RESP 16; O2SAT 97
[2022-07-25] MEDS: Azithromycin 250 MG TABLET PO (11:34)
[2022-07-25 11:50] VITALS: PULSE 93; RESP 16; O2SAT 96
[2022-07-25] MEDS: LORazepam 0.5 MG TABLET PO (12:25)
--- NOTE | 2022-07-25 13:50 | PC.NURSE ---
Nurse to nurse report sr to [facility]
[2022-07-25 13:51] VITALS: BP 150/82; PULSE 80; RESP 16; O2SAT 94
== END 2022-07-25 14:13 | disposition skilled nursing facility (03) ==
PROVIDERS: Nurse Practitioner Family; Emergency Provider Emergency Medicine; PCP Internal Medicine
DX: S40.011A Contusion of right shoulder, initial encounter (principal); S79.912A Unspecified injury of left hip, initial encounter; W01.10XA Fall on same level from slipping, tripping and stumbling with subsequent striking against unspecified object, initial encounter; Y93.9 Activity, unspecified; Y92.9 Unspecified place or not applicable; Y99.9 Unspecified external cause status; M54.50 Low back pain, unspecified; M54.2 Cervicalgia; R51.9 Headache, unspecified; R26.81 Unsteadiness on feet; R10.30 Lower abdominal pain, unspecified; R94.31 Abnormal electrocardiogram [ECG] [EKG]; R07.89 Other chest pain; M25.552 Pain in left hip; M25.511 Pain in right shoulder; Z20.822 Contact with and (suspected) exposure to COVID-19; Z20.828 Contact with and (suspected) exposure to other viral communicable diseases; Z79.899 Other long term (current) drug therapy; Z87.891 Personal history of nicotine dependence
CPT/HCPCS: 36415; 70450; 71260; 72125; 73030; 74177; 80048; 80076; 82550; 83735; 84484; 85025; 85610; 87635; 93005; 94640; 96374; 96375; 96376; 97162; 99285; J2270; J2405; Q9967

== ENCOUNTER → 2022-08-18 17:22 | Outpatient (BNVA) | payer MEDICARE, SELFPAY | PROVIDERS: PCP Internal Medicine; Visit Provider Internal Medicine ==

== ENCOUNTER → 2022-08-22 16:02 | Outpatient (BNVA) | payer MEDICARE, SELFPAY | PROVIDERS: PCP Internal Medicine; Visit Provider Internal Medicine ==

== ENCOUNTER 2022-08-25 06:41 | Outpatient (REF) | payer MEDICARE, SELFPAY ==
[2022-08-25 10:48] LABS: INTERNATIONAL NORM RATIO 2.2 (0.9-1.1); Prothrombin Time 26.6 SEC (10.0-13.1)
== END 2022-08-25 06:42 | disposition home or self-care (01) ==
LOC: HO.LHD 06:41
PROVIDERS: Visit Provider Internal Medicine
DX: I26.99 Other pulmonary embolism without acute cor pulmonale (principal); Z51.81 Encounter for therapeutic drug level monitoring; Z79.01 Long term (current) use of anticoagulants
CPT/HCPCS: 36415; 85610

== ENCOUNTER 2022-09-01 06:07 | Outpatient (REF) | payer MEDICARE, SELFPAY ==
--- NOTE | ~2022-09-01 | XR_ITS ---
EXAMINATION: XR PELVIS CLINICAL INFORMATION: Pain COMPARISON: Abdominal and pelvic CT July 2022 TECHNIQUE: AP view of the pelvis. FINDINGS: There is an intramedullary bruce and compression/lag screw in the left proximal femur. There is an old left femoral intertrochanteric fracture. This appears unchanged. There is mild arthritis at the hip joints with small osteophytes. Increased subchondral sclerosis in both femoral head suggestive of mild bilateral femoral head AVN. Nondisplaced left superior-inferior pubic rami fractures unchanged from previous CT. Question new fracture of the lateral left superior ramus/ischial bone/acetabulum. Bones of the pelvis are otherwise normal. Sacroiliac joints are normal. Degenerative changes and scoliosis of the visualized lower lumbar spine. Constipation and atherosclerotic disease. XR/XR pelvis 1-2V IMPRESSION: Nondisplaced left superior-inferior pubic rami fractures similar to recent CT. Question new fracture of the lateral superior pubic ramus/medial ischial bone/acetabulum. ORIF of left proximal femoral fracture unchanged. 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 Findings will be communicated by the [place] work flow transplanter
--- NOTE | ~2022-09-01 | XR_ITS ---
EXAMINATION: XR SHOULDER, RIGHT CLINICAL INFORMATION: Pain COMPARISON: Prior study 07/23/2022 TECHNIQUE: Chest frontal and scapular Y view of the right shoulder. FINDINGS: Redemonstration of chronic cephalad superior dislocation, there is abutment of the humeral head against the acromion process, this is commonly associated with chronic underlying rotator cuff derangement's. Included adjacent lungs and ribs are intact. Advanced arthritis of the AC joint. XR/XR shoulder RT min 2V IMPRESSION: Redemonstration of chronic cephalad superior dislocation of the humeral head against the acromion process, this is commonly associated with chronic underlying rotator cuff derangement's. MRI could be utilized to assess for possible underlying soft tissue derangement's.
== END 2022-09-01 06:08 | disposition home or self-care (01) ==
LOC: HO.HOSX 06:07
PROVIDERS: Visit Provider Physician Assistant
DX: S32.591A Other specified fracture of right pubis, initial encounter for closed fracture (principal); M12.811 Other specific arthropathies, not elsewhere classified, right shoulder; Z86.711 Personal history of pulmonary embolism
CPT/HCPCS: 20610; 36415; 72170; 73030; 85610; 99202; J1040

== ENCOUNTER 2022-09-01 09:48 | Outpatient (REF) | payer MEDICARE, SELFPAY ==
[2022-09-01 11:06] LABS: Prothrombin Time 36.5 SEC (10.0-13.1)
== END 2022-09-01 09:49 | disposition home or self-care (01) ==
LOC: HO.10HDL 09:48
PROVIDERS: Visit Provider Internal Medicine
DX: Z13.89 Encounter for screening for other disorder (principal)
CPT/HCPCS: 36415; 85610

== ENCOUNTER 2022-09-11 07:58 | Outpatient (REF) | payer MEDICARE, SELFPAY | END 2022-09-11 07:59 | disposition home or self-care (01) | LOC: HO.LHD 07:58 | PROVIDERS: Visit Provider Internal Medicine | DX: Z13.89 Encounter for screening for other disorder (principal) ==

== ENCOUNTER 2022-09-15 07:35 | Outpatient (REF) | payer MEDICARE, SELFPAY ==
[2022-09-15 11:56] LABS: INTERNATIONAL NORM RATIO 1.5 (0.9-1.1); Prothrombin Time 16.9 SEC (10.0-13.1)
== END 2022-09-15 07:36 | disposition home or self-care (01) ==
LOC: HO.LHD 07:35
PROVIDERS: Visit Provider Internal Medicine
DX: J42 Unspecified chronic bronchitis (principal); Z86.718 Personal history of other venous thrombosis and embolism; Z51.81 Encounter for therapeutic drug level monitoring; Z79.01 Long term (current) use of anticoagulants
CPT/HCPCS: 36415; 85610

== ENCOUNTER → 2022-09-22 14:54 | Outpatient (BNVA) | payer MEDICARE, SELFPAY | PROVIDERS: PCP Internal Medicine; Visit Provider Internal Medicine | DX: I26.99 Other pulmonary embolism without acute cor pulmonale (principal); Z79.01 Long term (current) use of anticoagulants; Z51.81 Encounter for therapeutic drug level monitoring | CPT/HCPCS: 85610; 99211 ==

== ENCOUNTER → 2022-09-29 13:41 | Outpatient (BNVA) | payer MEDICARE, SELFPAY | PROVIDERS: PCP Internal Medicine; Visit Provider Internal Medicine | DX: I26.99 Other pulmonary embolism without acute cor pulmonale (principal); Z79.01 Long term (current) use of anticoagulants; Z51.81 Encounter for therapeutic drug level monitoring | CPT/HCPCS: 85610; 99211 ==

== ENCOUNTER 2022-10-13 12:33 | Outpatient (REF) | payer MEDICARE, SELFPAY ==
--- NOTE | ~2022-10-13 | XR_ITS ---
EXAMINATION: XR PELVIS CLINICAL INFORMATION: Pain COMPARISON: Pelvis radiographs 08/12/2022 TECHNIQUE: AP view of the pelvis. FINDINGS: Degenerative disc disease of the visualized lower lumbosacral spine. Advanced degenerative changes of the pubic symphysis with complete loss of joint space. Mild degenerative changes of the hips with subchondral sclerosis. Healing fractures of the left superior and inferior pubic rami. Interval clips in the right pelvis. Status post ORIF of the left femur with intramedullary nail and screw fixation incompletely imaged with similar appearance of a left chronic intertrochanteric fracture. No evidence of hardware fracture or complication. XR/XR pelvis 1-2V IMPRESSION: 1. Status post ORIF of the left femur with intramedullary nail and screw fixation incompletely imaged with similar appearance of a remote left intertrochanteric fracture. 2. Healing fractures of the left superior and inferior pubic rami. 3. Advanced degenerative changes of the pubic symphysis with complete loss of joint space. 4. Mild degenerative changes of the hips with subchondral sclerosis. 5. Degenerative disc disease of the visualized lower lumbosacral spine.
== END 2022-10-13 12:34 | disposition home or self-care (01) ==
LOC: HO.HOSX 12:33
PROVIDERS: Visit Provider Physician Assistant
DX: S32.592D Other specified fracture of left pubis, subsequent encounter for fracture with routine healing (principal); M12.811 Other specific arthropathies, not elsewhere classified, right shoulder
CPT/HCPCS: 72170

== ENCOUNTER 2022-10-17 14:12 | Outpatient (AMB) | payer MEDICARE, SELFPAY ==
--- NOTE | 2022-10-17 14:18 | MHC.OFFVISCO ---
Intake Intake Visit Reasons: Anticoagulation Allergies No Known Allergies Allergy (Verified 10/17/22 14:14) Medication List - Last Reconciled 10/17/22 by Danette Pugh RN albuterol sulfate 90 mcg/actuation (Ventolin HFA) 2 puffs PO Q6H azithromycin 250 mg PO Q OTHER DAY cholecalciferol (vitamin D3) 50 mcg PO DAILY diclofenac sodium 1% 1 ea topical TID PRN formoterol fumarate (Perforomist) 20 mcg (2 mL) inhalation BID ipratropium-albuterol 0.5 mg-3 mg(2.5 mg base)/3 mL 3 mL inhalation Q6H PRN lorazepam 0.5 mg PO BID PRN oxycodone 5 - 10 mg PO Q6H oxycodone 10 mg PO Q6H PRN prednisone 20 mg PO DAILY warfarin (Jantoven) 1.5 mg See Protocol PO SUTUWEFRSA@1800 warfarin 3 mg See Protocol PO MOTH@1800 Nursing Note INR 4.5 out of therapeutic range Medications and supplements reviewed Patient status: TAKING TYLNOL AND OXYCODONE FOR SHOULDER PAIN, HAS A F/U APPT TODAY WITH DR FLYNN Medications or supplements: NO OTHER CHANGES Diet: GOOD Denies any signs and symptoms of bleeding or clotting or unusual bruising Bleeding, bruising, clotting discussed Nutritional guidance given: EAT GREENS TODAY Dose: HOLD TODAY THEN DECREASE WEEKLY DOSE 3MG X 1 DAY/ 1.5MG X 6 DAYS F/U INR Date : 1 WEEK?? Patient verbalizing understanding of instructions given. Anti-Coag Initial Assessment Social Hx Patient Tobacco Use Status: Former Tobacco user alcohol intake: never Alcohol intake frequency: 0-2 drinks per day Coding Level of Care Code Est Patient Level 1 Diagnoses Current use of anticoagulant therapy Z79.01 Assessment & Plan Assessment & Plan (1) Current use of anticoagulant therapy: Onset Date: ~2011 Comment: (On Warfarin - hx PE & Right leg DVT 05/2011) Code(s): Z79.01 - [facility] (current) use of anticoagulants Category: Medical Medications: Discontinued azithromycin 250 mg PO Q48H 90 days 45 tabs 2RF copd/chronic Bronchitis J42 - Unspecified chronic bronchitis, J44.9 - Chronic obstructive pulmonary disease, unspecified lorazepam 0.5 mg PO TID 30 days PRN 45 tabs 3RF anxiety/resp. distress formoterol fumarate 2 mL inhalation Q12H 15 days 60 mL 0RF ipratropium-albuterol 0.5 mg-3 mg(2.5 mg base)/3 mL 3 mL inhalation Q6H PRN 270 mL 3RF for wheezing J44.9 - Chronic obstructive pulmonary disease, unspecified Ventolin HFA 90 mcg/actuation 2 puffs PO Q4-6H PRN 18 ea 2RF shortness of breath or wheezing NS
[2022-10-17 14:19] LABS: Prothrombin Time Whole Bld POC 54.2 sec (11.1-13.5); ~PT, ~INR - Anti Coag Clinic 4.5 (0.9-1.1)
== END 2022-10-17 14:32 | disposition home or self-care (01) ==
LOC: HO.ACS 14:12
PROVIDERS: PCP Internal Medicine; Visit Provider Internal Medicine
DX: Z79.01 Long term (current) use of anticoagulants (principal)

== ENCOUNTER → 2022-10-17 14:12 | Outpatient (BNVA) | payer MEDICARE, SELFPAY | PROVIDERS: PCP Internal Medicine; Visit Provider Internal Medicine | DX: J44.9 Chronic obstructive pulmonary disease, unspecified (principal); J96.91 Respiratory failure, unspecified with hypoxia; C34.11 Malignant neoplasm of upper lobe, right bronchus or lung; F41.9 Anxiety disorder, unspecified; I26.99 Other pulmonary embolism without acute cor pulmonale; Z79.01 Long term (current) use of anticoagulants; Z51.81 Encounter for therapeutic drug level monitoring | CPT/HCPCS: 85610; 99211; 99212 ==

== ENCOUNTER 2022-10-17 14:51 | Outpatient (AMB) | payer MEDICARE, SELFPAY ==
[2022-10-17 14:55] VITALS: BP 130/60; PULSE 66; O2SAT 97; BMI 21.0
--- NOTE | 2022-10-17 14:55 | MHC.OFFVIS ---
Intake Vital Signs 10/17/22 14:55 Height 5 ft 2 in Weight 115 lb BMI 21.0 BP 130/60 Blood Pressure Location Lt brachial Position Sitting Pulse 66 Pulse Source Pulse Oximeter Pulse Oximetry (%) 97 Oxygen Delivery Method Nasal Cannula Oxygen Flow Rate 2 Intake Visit Reasons: COPD Intake Note: pt is here for follow up and states she is at her baseline, using updraft duoneb and performist also. Tire Room Supervisor Required: No Allergies No Known Allergies Allergy (Verified 10/17/22 15:12) Medication List - Last Reconciled 10/17/22 by Brie Lopez MD albuterol sulfate 90 mcg/actuation (Ventolin HFA) 2 puffs PO Q6H azithromycin 250 mg PO Q OTHER DAY cholecalciferol (vitamin D3) 50 mcg PO DAILY diclofenac sodium 1% 1 ea topical TID PRN formoterol fumarate (Perforomist) 20 mcg (2 mL) inhalation BID ipratropium-albuterol 0.5 mg-3 mg(2.5 mg base)/3 mL 3 mL inhalation Q6H PRN lorazepam 0.5 mg PO BID PRN oxycodone 5 - 10 mg PO Q6H oxycodone 10 mg PO Q6H PRN prednisone 20 mg PO DAILY warfarin (Jantoven) 1.5 mg See Protocol PO SUTUWEFRSA@1800 warfarin 3 mg See Protocol PO MOTH@1800 Do you need a note to return to daycare/school/sports/work: No HPI COPD HPI Details 77 years old female is a case of end-stage chronic obstructive pulmonary disease with ongoing respiratory failure, past history of pulmonary embolism, 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 Comes after 2 months for follow-up. She remains severely disabled and dyspneic almost all the times. She is mostly in the wheelchair but at home can walk short distance with the walker. She remains on maximum treatment including DuoNeb updrafts Q i.d., Perforomist 20 mcg in nebulizer b.i.d. prednisone 20 mg daily. And lorazepam 0.5 mg b.i.d. For pain control she is on oxycodone 5-10 mg Q 6 hours p.r.n.. which is prescribed by her primary care physician Dr. Angel Edgar. PATIENT IS BEING TREATED AT A PALLIATIVE CARE LEVEL. SHE IS FULLY AWARE OF POOR MEDICAL PROGNOSIS. [facility] Medical History Anxiety Cancer of upper lobe of left lung (~2020) Cancer of upper lobe of right lung (~2019) Chronic bronchitis Closed intertrochanteric fracture with routine healing (~2019) COPD (chronic obstructive pulmonary disease) Current use of anticoagulant therapy (~2011) History of left breast cancer (~2008) History of pulmonary embolism (~2011) Osteoporosis (~2018) Respiratory failure with hypoxia Tubular adenoma of colon (~2014) Surgical History History of appendectomy (~09/2012) History of colonoscopy (~07/2014) History of hip surgery (~11/2019) History of left breast biopsy (~03/2009) History of lumpectomy of left breast (~04/2009) History of lung surgery (~07/2019) History of lung surgery (~05/2020) History of tonsillectomy History of tubal ligation Social History Household Members: Children Housing: House Alcohol intake: never Patient Tobacco Use Status: Former Tobacco user Years Smoked: 35pyh - quit 1997 service: No Current occupational status: disabled Review of Systems Const All systems reviewed & are unremarkable except as noted in HPI and below Eyes Reports no additional complaints ENT Reports no additional complaints, Reports nasal congestion and Reports nasal discharge (Mild postnasal discharge) Card Denies chest pain, Reports irregular heart rhythm and Denies leg edema Resp Reports as per HPI GI Reports no additional complaints Reports no additional complaints Musc Reports back pain (MILD) Skin/Breast Reports system reviewed and no additional complaints, except as documented Neuro Reports no additional complaints Psych Reports anxiety Physical Exam Const General: comfortable (BUT SOMEWHAT DEPRESSED AND SLOW), no acute distress, alert and awake Orientation/consciousness: patient oriented x3 HEENT Head: Yes normal to inspection General nose exam: No nasal polyps present and No nasal discharge present Face and sinus: Yes sinuses nontender Mouth: oropharynx normal Throat: Yes posterior oropharynx normal Eyes General: appearance normal, both eyes and all related structures Neck Neck: Yes normal visual inspection, Yes no lymphadenopathy, Yes trachea midline and Yes no JVD Thyroid: Thyroid normal Chest Chest palpation & inspection: normal inspection of the chest, normal palpation of entire chest wall and no tenderness Resp Other: Percussion note is resonant, breath sounds are very distant with prolonged expiratory phase. No wheezes rhonchi A few crepitations are heard over bases . Cardio Palpation: normal PMI Rate: regular rate Rhythm: abnormal rhythm (Atrial fibrillation) Heart sounds: no gallops and no murmurs GI Palpation (GI): Soft to palpation, nontender, No hepatosplenomegaly present and no masses Auscultation: normal bowel sounds Back/Spine/Pelvis Thoracic/Lumbar Spine: thoracic and lumbar spine normal to inspection Skin General skin exam: no rashes or lesions noted Neuro General: patient oriented x3 and no focal motor deficits Cranial nerves: Yes CN's II-XII intact bilaterally Extrem General: Yes normal to inspection, Yes no calf tenderness, Yes edema (Moderate edema around the ankles and of both feet) and Yes venous stasis dermatitis (Both legs) Psych Appearance: grossly normal and well kempt Speech and movement: Normal speech and movement present Assessment & Plan Assessment & Plan (1) COPD (chronic obstructive pulmonary disease): Comment: (Advanced COPD, currently stable) TX: continue on maximum treatment, including: Perforomist 2 ml in nebulizer twice a day. DuoNeb updrafts Q 4-6 hours during the daytime and may also use about once during the night. Prednisone 20 mg to continue . Ventolin 2 puffs Q 4-6 hours p.r.n. when outdoors Azithromycin 250 mg p.o. on alt. days . Do use Oxygen 2-3 L/minute use all the times . * Explained to the patient that she is already on maximum medical treatment for her COPD. There is not much else that we can add. Prognosis is poor. She should think about, and plan for palliative care's/comfort measures only. Code(s): J44.9 - Chronic obstructive pulmonary disease, unspecified (2) Respiratory failure with hypoxia: Comment: (Hypoxemia secondary to advanced COPD) TX : Advised to continue on oxygen 2-3 L/minute 24 hours 7 days a week. Goal is to keep O2 sat at or above 92 % Code(s): J96.91 - Respiratory failure, unspecified with hypoxia (3) Cancer of upper lobe of right lung: Onset Date: ~2019 Comment: (RUL Stage I Adenocarcinoma - s/p resection 07/2019) Code(s): C34.11 - Malignant neoplasm of upper lobe, right bronchus or lung (4) Anxiety: Comment: BECAUSE OF HER SEVERE OBSTRUCTIVE AIRWAY DISORDER AND MARKEDLY LIMITED PHYSICAL ACTIVITY, SHE IS HAVING FREQUENT ANXIETY ATTACKS . SHE IS AT A STAGE WHERE SHE WOULD NEED JUST PALLIATIVE/COMFORT LEVEL OF CARE. TO ALLEVIATE HER RESPIRATORY DISTRESS SHE CAN EITHER USE ANXIOLYTIC AGENT SMALL DOSE OF LORAZEPAM P.R.N. OR WE CAN GO TO MORPHINE SULFATE 5 MG Q 4-6 HOURS P.R.N.. SHE HAS OPTED TO STAY ON LORAZEPAM BUT LIKES TO INCREASE THE DOSE TO 0.5 MG TID . I DID TELL HER THAT SHE HAS TO LIMIT HER EXPECTATIONS FOR PHYSICAL ACTIVITY , OR DOING MORE WORK. TX NEEDS LOT OF EMOTIONAL SUPPORT. TALKED TO HER IN DETAIL AND TRIED TO REASSURE. WILL PRESCRIBE LORAZEPAM 0.5 MG TO TAKE Q 4-6 HOURS P.R.N. FOR ANXIETY. ( MAY USE 0.5 MG UP TO THREE TIMES A DAY ) Code(s): F41.9 - Anxiety disorder, unspecified Medications: Discontinued azithromycin 250 mg PO Q48H 90 days 45 tabs 2RF copd/chronic Bronchitis J42 - Unspecified chronic bronchitis, J44.9 - Chronic obstructive pulmonary disease, unspecified lorazepam 0.5 mg PO TID 30 days PRN 45 tabs 3RF anxiety/resp. distress formoterol fumarate 2 mL inhalation Q12H 15 days 60 mL 0RF ipratropium-albuterol 0.5 mg-3 mg(2.5 mg base)/3 mL 3 mL inhalation Q6H PRN 270 mL 3RF for wheezing J44.9 - Chronic obstructive pulmonary disease, unspecified Ventolin HFA 90 mcg/actuation 2 puffs PO Q4-6H PRN 18 ea 2RF shortness of breath or wheezing NS Coding Level of Care Code Est Pt Level 4 (72136) Diagnoses COPD (chronic obstructive pulmonary disease) J44.9 Respiratory failure with hypoxia J96.91 Cancer of upper lobe of right lung C34.11 Anxiety F41.9
== END 2022-10-17 15:15 | disposition home or self-care (01) ==
PROVIDERS: PCP Internal Medicine; Visit Provider Internal Medicine
DX: J44.9 Chronic obstructive pulmonary disease, unspecified (principal); J96.91 Respiratory failure, unspecified with hypoxia; C34.11 Malignant neoplasm of upper lobe, right bronchus or lung; F41.9 Anxiety disorder, unspecified
CPT/HCPCS: 99214

== ENCOUNTER 2022-10-26 13:56 | Outpatient (AMB) | payer MEDICARE, SELFPAY ==
[2022-10-26 14:06] LABS: Prothrombin Time Whole Bld POC 23.5 sec (11.1-13.5)
--- NOTE | 2022-10-26 14:13 | MHC.OFFVISCO ---
Intake Intake Visit Reasons: Anticoagulation Allergies No Known Allergies Allergy (Verified 10/26/22 13:57) Medication List - Last Reconciled 10/26/22 by Jhoana Egan, RN albuterol sulfate 90 mcg/actuation (Ventolin HFA) 2 puffs PO Q6H azithromycin 250 mg PO Q OTHER DAY cholecalciferol (vitamin D3) 50 mcg PO DAILY diclofenac sodium 1% 1 ea topical TID PRN formoterol fumarate (Perforomist) 20 mcg (2 mL) inhalation BID ipratropium-albuterol 0.5 mg-3 mg(2.5 mg base)/3 mL 3 mL inhalation Q6H PRN lorazepam 0.5 mg PO BID PRN oxycodone 5 - 10 mg PO Q6H oxycodone 10 mg PO Q6H PRN prednisone 20 mg PO DAILY warfarin (Jantoven) 1.5 mg See Protocol PO SUTUWEFRSA@1800 warfarin 3 mg See Protocol PO MOTH@1800 Nursing Note To [facility] via WC, accomp by daughter, feeling good, indicates that breathing not going to get any better no O2 on today, no noted SOB, sts because she is WC. Sts no pelvic pain and pain in shoulders has decreased to 3-4/10 sts she has stopped the tylenol and is taking oxy most days twice a day and occ 3 times a day Medications and supplements reviewed No other changes in health, diet, medications, or supplements Denies any unusual signs and symptoms of bruising, bleeding, continues with noted areas of ecchymosis both arms, superficial, no noted swelling Denies any new Chest pain, SOB, or clotting INR: 2.0 just in therapeutic range after previous 4.5 Nutritional guidance given: no greens today then balance greens and reds in diet, if notices needs tylenol encouraged to increase greens Dose: continue usual dosing;3mg Mondays and 1.5mg all other days F/U INR: 2 weeks Patient verbalizes understanding of instructions given with accurate read back/ teach back of dosing Anti-Coag Initial Assessment Social Hx Patient Tobacco Use Status: Former Tobacco user alcohol intake: never Alcohol intake frequency: 0-2 drinks per day Coding Level of Care Code Est Patient Level 1 Diagnoses Current use of anticoagulant therapy Z79.01 Time Spent (min) 15 Assessment & Plan Assessment & Plan (1) Current use of anticoagulant therapy: Onset Date: ~2011 Comment: (On Warfarin - hx PE & Right leg DVT 05/2011) Code(s): Z79.01 - [facility] (current) use of anticoagulants Category: Medical Medications: Discontinued azithromycin 250 mg PO Q48H 90 days 45 tabs 2RF copd/chronic Bronchitis J42 - Unspecified chronic bronchitis, J44.9 - Chronic obstructive pulmonary disease, unspecified lorazepam 0.5 mg PO TID 30 days PRN 45 tabs 3RF anxiety/resp. distress formoterol fumarate 2 mL inhalation Q12H 15 days 60 mL 0RF ipratropium-albuterol 0.5 mg-3 mg(2.5 mg base)/3 mL 3 mL inhalation Q6H PRN 270 mL 3RF for wheezing J44.9 - Chronic obstructive pulmonary disease, unspecified Ventolin HFA 90 mcg/actuation 2 puffs PO Q4-6H PRN 18 ea 2RF shortness of breath or wheezing NS
== END 2022-10-26 14:21 | disposition home or self-care (01) ==
LOC: HO.ACS 13:56
PROVIDERS: PCP Internal Medicine; Visit Provider Internal Medicine
DX: Z79.01 Long term (current) use of anticoagulants (principal)

== ENCOUNTER → 2022-10-26 13:56 | Outpatient (BNVA) | payer MEDICARE, SELFPAY | PROVIDERS: PCP Internal Medicine; Visit Provider Internal Medicine | DX: I26.99 Other pulmonary embolism without acute cor pulmonale (principal); Z79.01 Long term (current) use of anticoagulants; Z51.81 Encounter for therapeutic drug level monitoring | CPT/HCPCS: 85610; 99211 ==

== ENCOUNTER 2022-11-09 13:45 | Outpatient (AMB) | payer MEDICARE, SELFPAY ==
--- NOTE | 2022-11-09 13:55 | MHC.OFFVISCO ---
Intake Intake Visit Reasons: Anticoagulation Allergies No Known Allergies Allergy (Verified 11/09/22 13:49) Medication List - Last Reconciled 11/09/22 by Shyla Rojas RN albuterol sulfate 90 mcg/actuation (Ventolin HFA) 2 puffs PO Q6H azithromycin 250 mg PO Q OTHER DAY cholecalciferol (vitamin D3) 50 mcg PO DAILY diclofenac sodium 1% 1 ea topical TID PRN formoterol fumarate (Perforomist) 20 mcg (2 mL) inhalation BID ipratropium-albuterol 0.5 mg-3 mg(2.5 mg base)/3 mL 3 mL inhalation Q6H PRN lorazepam 0.5 mg PO BID PRN lorazepam 0.5 mg PO TID PRN 30 days oxycodone 5 - 10 mg PO Q6H oxycodone 10 mg PO Q6H PRN prednisone 20 mg PO DAILY warfarin (Jantoven) 1.5 mg See Protocol PO SUTUWEFRSA@1800 warfarin 3 mg See Protocol PO MOTH@1800 Nursing Note INR 1.7-?? out of therapeutic range Medications and supplements reviewed Patient status: pt to acs in w/c accompanied by family, c.o back pain Medications or supplements: no changes Diet: appetite is fair Denies any signs and symptoms of bleeding or clotting or unusual bruising Bleeding, bruising, clotting discussed Nutritional guidance given: no greens for 2 days, eat a red today Dose: 3mg today then cont reg -3mg x 1. 1.5mg x 6 F/U INR Date : 1 week per pt req? Patient verbalizing understanding of instructions given. Anti-Coag Initial Assessment Social Hx Patient Tobacco Use Status: Former Tobacco user alcohol intake: never Alcohol intake frequency: 0-2 drinks per day Coding Level of Care Code Est Patient Level 1 Diagnoses Current use of anticoagulant therapy Z79.01 Assessment & Plan Assessment & Plan (1) Current use of anticoagulant therapy: Onset Date: ~2011 Comment: (On Warfarin - hx PE & Right leg DVT 05/2011) Code(s): Z79.01 - [facility] ([facility]) use of anticoagulants Category: Medical Medications: Discontinued azithromycin 250 mg PO Q48H 90 days 45 tabs 2RF copd/chronic Bronchitis J42 - Unspecified chronic bronchitis, J44.9 - Chronic obstructive pulmonary disease, unspecified lorazepam 0.5 mg PO TID 30 days PRN 45 tabs 3RF anxiety/resp. distress formoterol fumarate 2 mL inhalation Q12H 15 days 60 mL 0RF ipratropium-albuterol 0.5 mg-3 mg(2.5 mg base)/3 mL 3 mL inhalation Q6H PRN 270 mL 3RF for wheezing J44.9 - Chronic obstructive pulmonary disease, unspecified Ventolin HFA 90 mcg/actuation 2 puffs PO Q4-6H PRN 18 ea 2RF shortness of breath or wheezing NS
[2022-11-09 13:56] LABS: Prothrombin Time Whole Bld POC 20.8 sec (11.1-13.5); ~PT, ~INR - Anti Coag Clinic 1.7 (0.9-1.1)
== END 2022-11-09 14:02 | disposition home or self-care (01) ==
LOC: HO.ACS 13:45
PROVIDERS: PCP Internal Medicine; Visit Provider Internal Medicine
DX: Z79.01 Long term (current) use of anticoagulants (principal)

== ENCOUNTER → 2022-11-09 13:45 | Outpatient (BNVA) | payer MEDICARE, SELFPAY | PROVIDERS: PCP Internal Medicine; Visit Provider Internal Medicine | DX: I26.99 Other pulmonary embolism without acute cor pulmonale (principal); Z79.01 Long term (current) use of anticoagulants; Z51.81 Encounter for therapeutic drug level monitoring | CPT/HCPCS: 85610; 99211 ==

== ENCOUNTER 2022-11-17 14:20 | Outpatient (AMB) | payer MEDICARE, SELFPAY ==
[2022-11-17 14:29] LABS: Prothrombin Time Whole Bld POC 17.4 sec (11.1-13.5); ~PT, ~INR - Anti Coag Clinic 1.4 (0.9-1.1)
--- NOTE | 2022-11-17 14:39 | MHC.OFFVISCO ---
Intake Intake Visit Reasons: Anticoagulation Allergies No Known Allergies Allergy (Verified 11/17/22 14:23) Medication List - Last Reconciled 11/17/22 by Jhoana Egan RN albuterol sulfate 90 mcg/actuation (Ventolin HFA) 2 puffs PO Q6H azithromycin 250 mg PO Q OTHER DAY cholecalciferol (vitamin D3) 50 mcg PO DAILY diclofenac sodium 1% 1 ea topical TID PRN formoterol fumarate (Perforomist) 20 mcg (2 mL) inhalation BID ipratropium-albuterol 0.5 mg-3 mg(2.5 mg base)/3 mL 3 mL inhalation Q6H PRN lorazepam 0.5 mg PO BID PRN lorazepam 0.5 mg PO TID PRN 30 days oxycodone 5 - 10 mg PO Q6H oxycodone 10 mg PO Q6H PRN prednisone 20 mg PO DAILY warfarin (Jantoven) 1.5 mg See Protocol PO SUTUWEFRSA@1800 warfarin 3 mg See Protocol PO MOTH@1800 Nursing Note To [facility] via WC feeling ok, accomp by daughter Medications and supplements reviewed No changes in health, diet, medications, or supplements other than sts not taking any tylenol, cutting back on oxycodones, and not really eating any vegetables I really have a hard time standing to cook them when questioned regarding meals on wheels sts had it before and really didn't like it sts only pain is in shoulders Denies any unusual signs and symptoms of bruising, bleeding Denies any new Chest pain, SOB, or clotting INR:1.4 critical low, denies any missed doses Nutritional guidance given: no greens until seen, have osage tomatoes and other reds to help raise Dose: increase dose today and tomorrow to 3mg (vs 1.5 mg) then resume usual dosing and will increase weekly back to 3mg x 2 days and 1.5mg x 5 days; F/U INR: Wednesday 11/22 Patient verbalizes understanding of instructions given with accurate read back/ teach back of dosing Call to PCP Dr Montiel, spoke with Lise critical INR 1.4 reported, dosing plan, no S/S clotting, diet, and F/U Anti-Coag Initial Assessment Social Hx Patient Tobacco Use Status: Former Tobacco user alcohol intake: never Alcohol intake frequency: 0-2 drinks per day Coding Level of Care Code Est Patient Level 1 Diagnoses Current use of anticoagulant therapy Z79.01 Time Spent (min) 20 Assessment & Plan Assessment & Plan (1) Current use of anticoagulant therapy: Onset Date: ~2011 Comment: (On Warfarin - hx PE & Right leg DVT 05/2011) Code(s): Z79.01 - term[facility] (current) use of anticoagulants Category: Medical Medications: Discontinued azithromycin 250 mg PO Q48H 90 days 45 tabs 2RF copd/chronic Bronchitis J42 - Unspecified chronic bronchitis, J44.9 - Chronic obstructive pulmonary disease, unspecified lorazepam 0.5 mg PO TID 30 days PRN 45 tabs 3RF anxiety/resp. distress formoterol fumarate 2 mL inhalation Q12H 15 days 60 mL 0RF ipratropium-albuterol 0.5 mg-3 mg(2.5 mg base)/3 mL 3 mL inhalation Q6H PRN 270 mL 3RF for wheezing J44.9 - Chronic obstructive pulmonary disease, unspecified Ventolin HFA 90 mcg/actuation 2 puffs PO Q4-6H PRN 18 ea 2RF shortness of breath or wheezing NS
== END 2022-11-17 14:55 | disposition home or self-care (01) ==
LOC: HO.ACS 14:20
PROVIDERS: PCP Internal Medicine; Visit Provider Internal Medicine
DX: Z79.01 Long term (current) use of anticoagulants (principal)

== ENCOUNTER → 2022-11-17 14:20 | Outpatient (BNVA) | payer MEDICARE, SELFPAY | PROVIDERS: PCP Internal Medicine; Visit Provider Internal Medicine | DX: I26.99 Other pulmonary embolism without acute cor pulmonale (principal); Z79.01 Long term (current) use of anticoagulants; Z51.81 Encounter for therapeutic drug level monitoring | CPT/HCPCS: 85610; 99211 ==

== ENCOUNTER 2022-11-22 14:02 | Outpatient (AMB) | payer MEDICARE, SELFPAY ==
[2022-11-22 14:17] LABS: Prothrombin Time Whole Bld POC 21.1 sec (11.1-13.5); ~PT, ~INR - Anti Coag Clinic 1.8 (0.9-1.1)
--- NOTE | 2022-11-22 14:19 | MHC.OFFVISCO ---
Intake Intake Visit Reasons: Anticoagulation Allergies No Known Allergies Allergy (Verified 11/17/22 14:23) Nursing Note INR 1.8 out of therapeutic range BUT IS UP FROM 1.4 Medications and supplements reviewed Patient status: UNCHANGED, COMIN VIA WHEEEL CHAIR WITH FAMILY Medications or supplements: TAKING OXYCODONE FOR PAIN, SHE ASKED IF STOPPING THE PAIN WOULD HELP HER BREATHING- IT WAS EXPLAINED THE HER PAIN MED COULD SLIGHTLY DECREASE HER BREATHING IT MAY IMPROVE SOME - BUT ALSO DEPENDS ON HER LUNG STATUS Diet: GOOD Denies any signs and symptoms of bleeding or clotting or unusual bruising Bleeding, bruising, clotting discussed Nutritional guidance given: AVOID GREENS TODAY AND TOMORROW, EATO ORANGE AND REDS Dose: 3MG X 2 DAYS/ 1.5MG X 5 DAYS F/U INR Date : 11/23/22?? Patient verbalizing understanding of instructions given. Anti-Coag Initial Assessment Social Hx Patient Tobacco Use Status: Former Tobacco user alcohol intake: never Alcohol intake frequency: 0-2 drinks per day Coding Level of Care Code Est Patient Level 1 Diagnoses Current use of anticoagulant therapy Z79.01 Results AMB INR Fingerstick AMB INR Fingerstick 1.8 Last Edit by Danette Pugh RN on 11/22/22 14:12 MANUAL ENTRY Assessment & Plan Assessment & Plan (1) Current use of anticoagulant therapy: Onset Date: ~2011 Comment: (On Warfarin - hx PE & Right leg DVT 05/2011) Code(s): Z79.01 - long-term (current) use of anticoagulants Category: Medical Medications: Discontinued azithromycin 250 mg PO Q48H 90 days 45 tabs 2RF copd/chronic Bronchitis J42 - Unspecified chronic bronchitis, J44.9 - Chronic obstructive pulmonary disease, unspecified lorazepam 0.5 mg PO TID 30 days PRN 45 tabs 3RF anxiety/resp. distress formoterol fumarate 2 mL inhalation Q12H 15 days 60 mL 0RF ipratropium-albuterol 0.5 mg-3 mg(2.5 mg base)/3 mL 3 mL inhalation Q6H PRN 270 mL 3RF for wheezing J44.9 - Chronic obstructive pulmonary disease, unspecified Ventolin HFA 90 mcg/actuation 2 puffs PO Q4-6H PRN 18 ea 2RF shortness of breath or wheezing NS
== END 2022-11-22 14:26 | disposition home or self-care (01) ==
LOC: HO.ACS 14:02
PROVIDERS: PCP Internal Medicine; Visit Provider Internal Medicine
DX: Z79.01 Long term (current) use of anticoagulants (principal)

== ENCOUNTER → 2022-11-22 14:02 | Outpatient (BNVA) | payer MEDICARE, SELFPAY | PROVIDERS: PCP Internal Medicine; Visit Provider Internal Medicine | DX: I26.99 Other pulmonary embolism without acute cor pulmonale (principal); Z79.01 Long term (current) use of anticoagulants; Z51.81 Encounter for therapeutic drug level monitoring | CPT/HCPCS: 85610; 99211 ==

== ENCOUNTER 2022-12-01 14:31 | Outpatient (AMB) | payer MEDICARE, SELFPAY ==
--- NOTE | 2022-12-01 14:46 | MHC.OFFVISCO ---
Intake Intake Visit Reasons: Anticoagulation Allergies No Known Allergies Allergy (Verified 12/01/22 14:34) Medication List - Last Reconciled 12/01/22 by Danette Pugh RN albuterol sulfate 90 mcg/actuation (Ventolin HFA) 2 puffs PO Q6H azithromycin 250 mg PO Q OTHER DAY cholecalciferol (vitamin D3) 50 mcg PO DAILY diclofenac sodium 1% 1 ea topical TID PRN formoterol fumarate (Perforomist) 20 mcg (2 mL) inhalation BID ipratropium-albuterol 0.5 mg-3 mg(2.5 mg base)/3 mL 3 mL inhalation Q6H PRN lorazepam 0.5 mg PO BID PRN lorazepam 0.5 mg PO TID PRN 30 days oxycodone 5 - 10 mg PO Q6H oxycodone 10 mg PO Q6H PRN prednisone 20 mg PO DAILY warfarin (Jantoven) 1.5 mg See Protocol PO SUTUWEFRSA@1800 warfarin 3 mg See Protocol PO MOTH@1800 Nursing Note PT CAME WITH DAUGHTER AND GRANDAUGTHER INR: 1.7 NOT in therapeutic range- HAVE BEEN LOW SEVERAL WEEKS Medications and supplements reviewed- NO CHANGES Denies any signs and symptoms of bleeding or bruising or clotting. Bleeding, bruising, clotting discussed Nutritional guidance given - AVOID GREENS TODAY AND TOMORROW - HAVE REDS TODAY Dose: INCREASE DOSE 3MG X 3 DAYS/ 1.5MG X 4 DAYS F/U INR: 1 WEEK AFTER HER PODIETRY APPT Patient verbalizes understanding of instructions given Anti-Coag Initial Assessment Social Hx Patient Tobacco Use Status: Former Tobacco user alcohol intake: never Alcohol intake frequency: 0-2 drinks per day Coding Level of Care Code Est Patient Level 1 Diagnoses Current use of anticoagulant therapy Z79.01 Results AMB INR Fingerstick AMB INR Fingerstick 1.7 Last Edit by Danette Pugh RN on 12/01/22 14:42 MANUAL ENTRY Assessment & Plan Assessment & Plan (1) Current use of anticoagulant therapy: Onset Date: ~2011 Comment: (On Warfarin - hx PE & Right leg DVT 05/2011) Code(s): Z79.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 distress formoterol fumarate 2 mL inhalation Q12H 15 days 60 mL 0RF ipratropium-albuterol 0.5 mg-3 mg(2.5 mg base)/3 mL 3 mL inhalation Q6H PRN 270 mL 3RF for wheezing J44.9 - Chronic obstructive pulmonary disease, unspecified Ventolin HFA 90 mcg/actuation 2 puffs PO Q4-6H PRN 18 ea 2RF shortness of breath or wheezing NS
[2022-12-02 11:10] LABS: Prothrombin Time Whole Bld POC 20.5 sec (11.1-13.5); ~PT, ~INR - Anti Coag Clinic 1.7 (0.9-1.1)
== END 2022-12-01 14:50 | disposition home or self-care (01) ==
LOC: HO.ACS 14:31
PROVIDERS: PCP Internal Medicine; Visit Provider Internal Medicine
DX: Z79.01 Long term (current) use of anticoagulants (principal)

== ENCOUNTER → 2022-12-01 14:31 | Outpatient (BNVA) | payer MEDICARE, SELFPAY | PROVIDERS: PCP Internal Medicine; Visit Provider Internal Medicine | DX: I26.99 Other pulmonary embolism without acute cor pulmonale (principal); Z79.01 Long term (current) use of anticoagulants; Z51.81 Encounter for therapeutic drug level monitoring | CPT/HCPCS: 85610; 99211 ==

== ENCOUNTER 2022-12-08 14:00 | Outpatient (AMB) | payer MEDICARE, SELFPAY ==
[2022-12-08 14:07] LABS: Prothrombin Time Whole Bld POC 29.8 sec (11.1-13.5); ~PT, ~INR - Anti Coag Clinic 2.5 (0.9-1.1)
--- NOTE | 2022-12-08 14:24 | MHC.OFFVISCO ---
Intake Intake Visit Reasons: Anticoagulation Allergies No Known Allergies Allergy (Verified 12/08/22 14:10) Medication List - Last Reconciled 12/08/22 by Rosana Felipe RN albuterol sulfate 90 mcg/actuation (Ventolin HFA) 2 puffs PO Q6H azithromycin 250 mg PO Q OTHER DAY cholecalciferol (vitamin D3) 50 mcg PO DAILY diclofenac sodium 1% 1 ea topical TID PRN formoterol fumarate (Perforomist) 20 mcg (2 mL) inhalation BID ipratropium-albuterol 0.5 mg-3 mg(2.5 mg base)/3 mL 3 mL inhalation Q6H PRN lorazepam 0.5 mg PO BID PRN lorazepam 0.5 mg PO TID PRN 30 days oxycodone 5 - 10 mg PO Q6H oxycodone 10 mg PO Q6H PRN prednisone 20 mg PO DAILY warfarin (Jantoven) 1.5 mg See Protocol PO SUTUWEFRSA@1800 warfarin 3 mg See Protocol PO MOTH@1800 Nursing Note NO CP,SOB,DIET/MED CHANGES,FALLS OR SX OF BLEEDING. CONTINUE PRESENT DOSE AND FOLLOW-UP IN 2 WEEKS. GOOD UNDERSTANDING OF DOSING INSTR. Anti-Coag Initial Assessment Social Hx Patient Tobacco Use Status: Former Tobacco user alcohol intake: never Alcohol intake frequency: 0-2 drinks per day Coding Level of Care Code Est Patient Level 1 Diagnoses Current use of anticoagulant therapy Z79.01 Assessment & Plan Assessment & Plan (1) Current use of anticoagulant therapy: Onset Date: ~2011 Comment: (On Warfarin - hx PE & Right leg DVT 05/2011) Code(s): Z79.01 - longterm (current) use of anticoagulants Category: Medical Medications: Discontinued azithromycin 250 mg PO Q48H 90 days 45 tabs 2RF copd/chronic Bronchitis J42 - Unspecified chronic bronchitis, J44.9 - Chronic obstructive pulmonary disease, unspecified lorazepam 0.5 mg PO TID 30 days PRN 45 tabs 3RF anxiety/resp. distress formoterol fumarate 2 mL inhalation Q12H 15 days 60 mL 0RF ipratropium-albuterol 0.5 mg-3 mg(2.5 mg base)/3 mL 3 mL inhalation Q6H PRN 270 mL 3RF for wheezing J44.9 - Chronic obstructive pulmonary disease, unspecified Ventolin HFA 90 mcg/actuation 2 puffs PO Q4-6H PRN 18 ea 2RF shortness of breath or wheezing NS
== END 2022-12-08 14:28 | disposition home or self-care (01) ==
LOC: HO.ACS 14:00
PROVIDERS: PCP Internal Medicine; Visit Provider Internal Medicine
DX: Z79.01 Long term (current) use of anticoagulants (principal)

== ENCOUNTER → 2022-12-08 14:00 | Outpatient (BNVA) | payer MEDICARE, SELFPAY | PROVIDERS: PCP Internal Medicine; Visit Provider Internal Medicine | DX: I26.99 Other pulmonary embolism without acute cor pulmonale (principal); Z79.01 Long term (current) use of anticoagulants; Z51.81 Encounter for therapeutic drug level monitoring | CPT/HCPCS: 85610; 99211 ==

== ENCOUNTER 2022-12-22 13:01 | Outpatient (AMB) | payer MEDICARE, SELFPAY ==
[2022-12-22 13:13] LABS: Prothrombin Time Whole Bld POC 22.5 sec (11.1-13.5); ~PT, ~INR - Anti Coag Clinic 1.9 (0.9-1.1)
--- NOTE | 2022-12-22 13:18 | MHC.OFFVISCO ---
Intake Intake Visit Reasons: Anticoagulation Allergies No Known Allergies Allergy (Verified 12/22/22 13:08) Medication List - Last Reconciled 12/22/22 by Jhoana Egan, RN albuterol sulfate 90 mcg/actuation (Ventolin HFA) 2 puffs PO Q6H azithromycin 250 mg PO Q OTHER DAY cholecalciferol (vitamin D3) 50 mcg PO DAILY diclofenac sodium 1% 1 ea topical TID PRN formoterol fumarate (Perforomist) 20 mcg (2 mL) inhalation BID ipratropium-albuterol 0.5 mg-3 mg(2.5 mg base)/3 mL 3 mL inhalation Q6H PRN lorazepam 0.5 mg PO BID PRN lorazepam 0.5 mg PO TID PRN 30 days oxycodone 5 - 10 mg PO Q6H oxycodone 10 mg PO Q6H PRN prednisone 20 mg PO DAILY warfarin (Jantoven) 1.5 mg See Protocol PO SUTUWEFRSA@1800 warfarin 3 mg See Protocol PO MOTH@1800 Nursing Note To [facility] via WC accomp by daughter and grandaughter feeling ok tired not wearing O2 here today Medications and supplements reviewed No changes in health, diet, medications, or supplements Denies any unusual signs and symptoms of bruising, bleeding Denies any new Chest pain, SOB, or clotting INR: 1.9 just below therapeutic range (recent increases in weekly dosing) pt denies any missed doses or increase in greens sts eating more sweets even though I haven't been able to taste anything for a couple years Nutritional guidance given: balance greens and reds in diet Dose: increase dose today to 3mg then resume usual dosing; 3mg x 3 days and 1.5mg x 4 days F/U INR: 01/02 as has an appointment with Dr Lopez same day Patient verbalizes understanding of instructions given with accurate read back/ teach back of dosing Anti-Coag Initial Assessment Social Hx Patient Tobacco Use Status: Former Tobacco user alcohol intake: never Alcohol intake frequency: 0-2 drinks per day Coding Level of Care Code Est Patient Level 1 Diagnoses Current use of anticoagulant therapy Z79.01 Time Spent (min) 15 Assessment & Plan Assessment & Plan (1) Current use of anticoagulant therapy: Onset Date: ~2011 Comment: (On Warfarin - hx PE & Right leg DVT 05/2011) Code(s): 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
== END 2022-12-22 13:25 | disposition home or self-care (01) ==
LOC: HO.ACS 13:02
PROVIDERS: PCP Internal Medicine; Visit Provider Internal Medicine
DX: Z79.01 Long term (current) use of anticoagulants (principal)

== ENCOUNTER → 2022-12-22 13:01 | Outpatient (BNVA) | payer MEDICARE, SELFPAY | PROVIDERS: PCP Internal Medicine; Visit Provider Internal Medicine | DX: I26.99 Other pulmonary embolism without acute cor pulmonale (principal); Z79.01 Long term (current) use of anticoagulants; Z51.81 Encounter for therapeutic drug level monitoring | CPT/HCPCS: 85610; 99211 ==

== ENCOUNTER 2022-12-29 08:18 | Outpatient (RCR) | payer MEDICARE, SELFPAY | END 2023-03-28 17:00 | disposition home or self-care (01) | LOC: HO.WCC 08:18 | PROVIDERS: PCP Internal Medicine; Referring Provider Internal Medicine; Visit Provider Physician Assistant | DX: L97.312 Non-pressure chronic ulcer of right ankle with fat layer exposed (principal); I87.022 Postthrombotic syndrome with inflammation of left lower extremity; I73.9 Peripheral vascular disease, unspecified; I26.99 Other pulmonary embolism without acute cor pulmonale; Z79.891 Long term (current) use of opiate analgesic; Z79.52 Long term (current) use of systemic steroids; Z87.891 Personal history of nicotine dependence; Z86.711 Personal history of pulmonary embolism | CPT/HCPCS: 11042; 99212 ==

== ENCOUNTER 2023-01-02 13:53 | Outpatient (AMB) | payer MEDICARE, SELFPAY ==
[2023-01-02 13:58] LABS: Prothrombin Time Whole Bld POC 19.8 sec (11.1-13.5); ~PT, ~INR - Anti Coag Clinic 1.6 (0.9-1.1)
--- NOTE | 2023-01-02 14:19 | MHC.OFFVISCO ---
Intake Intake Visit Reasons: Anticoagulation Allergies No Known Allergies Allergy (Verified 01/02/23 14:31) Medication List - Last Reconciled 01/02/23 by Danette Pugh, RN albuterol sulfate 90 mcg/actuation (Ventolin HFA) 2 puffs PO Q6H azithromycin 250 mg PO Q OTHER DAY cholecalciferol (vitamin D3) 50 mcg PO DAILY ciclopirox 0.77% topical diclofenac sodium 1% 1 ea topical TID PRN formoterol fumarate (Perforomist) 20 mcg (2 mL) inhalation BID ipratropium-albuterol 0.5 mg-3 mg(2.5 mg base)/3 mL 3 mL inhalation Q6H PRN lorazepam 0.5 mg PO BID PRN lorazepam 0.5 mg PO TID PRN 30 days oxycodone 5 - 10 mg PO Q6H oxycodone 10 mg PO Q6H PRN prednisone 20 mg PO DAILY warfarin (Jantoven) 1.5 mg See Protocol PO SUTUWEFRSA@1800 warfarin 3 mg See Protocol PO MOTH@1800 Nursing Note INR 1.6?? out of therapeutic range Medications and supplements reviewed Patient status: bruising on chest and arms, appetite ok i just dont have the energy to stand and cook for myself has a wound that she has wound clinic managing Medications or supplements: no changes Diet: ok -eating quick easy meals due to lack of strength/ or sob to prepare her own meals Denies any signs and symptoms of bleeding or clotting or unusual bruising Bleeding, bruising, clotting discussed Nutritional guidance given: avoid greens x 3 days, eat orange and reds to help raise the INR, Dose: increase weekly dose 4.5mg today then increase 3mg x 4 days/ 1.5mg x 3 days F/U INR Date : 2 weeks or sooner per MD or any med changes will wait until md appt to see if she has any labs drawn- may see pt in 1 week instead of 2 due to bruising and increased warfarin dose ?? Patient verbalizing understanding of instructions given. Anti-Coag Initial Assessment Social Hx Patient Tobacco Use Status: Former Tobacco user alcohol intake: never Alcohol intake frequency: 0-2 drinks per day Coding Level of Care Code Est Patient Level 1 Diagnoses Current use of anticoagulant therapy Z79.01 Results AMB INR Fingerstick AMB INR Fingerstick 1.6 Last Edit by Danette Pugh RN on 01/02/23 13:59 MANUAL ENTRY DELAYED INTERFACING Assessment & Plan Assessment & Plan (1) Current use of anticoagulant therapy: Onset Date: ~2011 Comment: (On Warfarin - hx PE & Right leg DVT 05/2011) Code(s): Z79.01 - detention (current) use of anticoagulants Category: Medical
== END 2023-01-02 14:35 | disposition home or self-care (01) ==
LOC: HO.ACS 13:53
PROVIDERS: PCP Internal Medicine; Visit Provider Internal Medicine
DX: Z79.01 Long term (current) use of anticoagulants (principal)

== ENCOUNTER → 2023-01-02 13:53 | Outpatient (BNVA) | payer MEDICARE, SELFPAY | PROVIDERS: PCP Internal Medicine; Visit Provider Internal Medicine | DX: J44.9 Chronic obstructive pulmonary disease, unspecified (principal); J42 Unspecified chronic bronchitis; J96.91 Respiratory failure, unspecified with hypoxia; R91.1 Solitary pulmonary nodule; F41.9 Anxiety disorder, unspecified; I26.99 Other pulmonary embolism without acute cor pulmonale; Z79.01 Long term (current) use of anticoagulants; Z51.81 Encounter for therapeutic drug level monitoring | CPT/HCPCS: 85610; 99211; 99212 ==

== ENCOUNTER 2023-01-02 14:16 | Outpatient (AMB) | payer MEDICARE, SELFPAY ==
[2023-01-02 14:27] VITALS: BP 140/80; PULSE 81; O2SAT 95; BMI 21.8
--- NOTE | 2023-01-02 14:27 | MHC.OFFVIS ---
Intake Vital Signs 01/02/23 14:27 Height 5 ft 2 in Weight 119 lb BMI 21.8 BP 140/80 H Blood Pressure Location Rt brachial Position Sitting Pulse 81 Pulse Source Pulse Oximeter Pulse Oximetry (%) 95 Oxygen Delivery Method Room Air Intake Visit Reasons: COPD Intake Note: pt is here for follow up and states her breathing is getting worse, but expected, using oxygen prn Pesticide Control Inspector Required: No Allergies No Known Allergies Allergy (Verified 01/02/23 14:42) Medication List - Last Reconciled 01/02/23 by Brie Lopez MD albuterol sulfate 90 mcg/actuation (Ventolin HFA) 2 puffs PO Q6H azithromycin 250 mg PO Q OTHER DAY cholecalciferol (vitamin D3) 50 mcg PO DAILY ciclopirox 0.77% topical diclofenac sodium 1% 1 ea topical TID PRN formoterol fumarate (Perforomist) 20 mcg (2 mL) inhalation BID ipratropium-albuterol 0.5 mg-3 mg(2.5 mg base)/3 mL 3 mL inhalation Q6H PRN lorazepam 0.5 mg PO BID PRN lorazepam 0.5 mg PO TID PRN 30 days oxycodone 5 - 10 mg PO Q6H oxycodone 10 mg PO Q6H PRN prednisone 20 mg PO DAILY warfarin (Jantoven) 1.5 mg See Protocol PO SUTUWEFRSA@1800 warfarin 3 mg See Protocol PO MOTH@1800 Do you need a note to return to daycare/school/sports/work: No HPI COPD HPI Details SUSANNE IS 77 YEARS OLD VERY PLEASANT FEMALE WITH END-STAGE CHRONIC OBSTRUCTIVE PULMONARY DISEASE. SHE IS HERE AFTER. 2 MONTHS FOR FOLLOW-UP SHE GETS SHORT OF BREATH WITH ANY MOVEMENTS BUT AT REST SHE SHE IS DOING OKAY. SHE DOES HAVE MILD INTERMITTENT. COUGH BUT NOT MUCH EXPECTORATION DOES NOT. 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 AND IS BEING TREATED WITH OXYCODONE FOR PAIN CONTROL. THUS SHE IS NOT USING LORAZEPAM AT THIS TIME. SHE STAYS MOSTLY IN THE CHAIR, LUCKILY SHE HAS HAD NO ACUTE EXACERBATION OR ACUTE INFECTION. [facility] Medical History Respiratory failure with hypoxia Anxiety Tubular adenoma of colon (~2014) Cancer of upper lobe of left lung (~2020) Osteoporosis (~2018) History of pulmonary embolism (~2011) History of left breast cancer (~2008) Current use of anticoagulant therapy (~2011) Chronic bronchitis COPD (chronic obstructive pulmonary disease) Cancer of upper lobe of right lung (~2019) Closed intertrochanteric fracture with routine healing (~2019) Surgical History History of colonoscopy (~07/2014) History of tubal ligation History of lung surgery (~05/2020) History of tonsillectomy History of left breast biopsy (~03/2009) History of hip surgery (~11/2019) History of lumpectomy of left breast (~04/2009) History of appendectomy (~09/2012) History of lung surgery (~07/2019) Social History Household Members: Children Housing: House Alcohol intake: never Patient Tobacco Use Status: Former Tobacco user Years Smoked: 35pyh - quit 1997 service: No Current occupational status: disabled Review of Systems Const All systems reviewed & are unremarkable except as noted in HPI and below Eyes Reports no additional complaints ENT Reports no additional complaints, Reports nasal congestion and Reports nasal discharge (Mild postnasal discharge) Card Denies chest pain, Reports irregular heart rhythm and Denies leg edema Resp Reports as per HPI GI Reports no additional complaints Reports no additional complaints Musc Reports back pain (MILD) Skin/Breast Reports system reviewed and no additional complaints, except as documented Neuro Reports no additional complaints Psych Reports anxiety Physical Exam Vital Signs: Last Vital Signs Pulse 81 01/02/23 14:27 BP 140/80 H 01/02/23 14:27 Pulse Ox 95 01/02/23 14:27 Oxygen Delivery Method Room Air 01/02/23 14:27 BMI result Body Mass Index 21.8 Const General: comfortable (BUT SOMEWHAT DEPRESSED AND SLOW), no acute distress, alert and awake Orientation/consciousness: patient oriented x3 HEENT Head: Yes normal to inspection General nose exam: No nasal polyps present and No nasal discharge present Face and sinus: Yes sinuses nontender Mouth: oropharynx normal Throat: Yes posterior oropharynx normal Eyes General: appearance normal, both eyes and all related structures Neck Neck: Yes normal visual inspection, Yes no lymphadenopathy, Yes trachea midline and Yes no JVD Thyroid: Thyroid normal Chest Chest palpation & inspection: normal inspection of the chest, normal palpation of entire chest wall and no tenderness Resp Other: Percussion note is resonant, breath sounds are very distant with prolonged expiratory phase. No wheezes rhonchior crepitations . Cardio Palpation: normal PMI Rate: regular rate Rhythm: abnormal rhythm (Atrial fibrillation) Heart sounds: no gallops and no murmurs GI Palpation (GI): Soft to palpation, nontender, No hepatosplenomegaly present and no masses Auscultation: normal bowel sounds Back/Spine/Pelvis Thoracic/Lumbar Spine: thoracic and lumbar spine normal to inspection Skin General skin exam: no rashes or lesions noted Neuro General: patient oriented x3 and no focal motor deficits Cranial nerves: Yes CN's II-XII intact bilaterally Extrem General: Yes normal to inspection, Yes no calf tenderness, Yes edema (Moderate edema around the ankles and of both feet) and Yes venous stasis dermatitis (chronic venestasis of casas legs, has an ulcer on lateral aspect of rt leg ) Psych Appearance: grossly normal and well kempt Speech and movement: Normal speech and movement present Results AMB INR Fingerstick AMB INR Fingerstick 1.6 Last Edit by Danette Pugh RN on 01/02/23 13:59 MANUAL ENTRY DELAYED INTERFACING Assessment & Plan Assessment & Plan (1) COPD (chronic obstructive pulmonary disease): Comment: (Advanced COPD, currently stable) TX: continue on maximum treatment, including: Perforomist 2 ml in nebulizer twice a day. DuoNeb updrafts Q 4-6 hours during the daytime and may also use about once during the night. Prednisone 20 mg to continue . Ventolin 2 puffs Q 4-6 hours p.r.n. when outdoors Azithromycin 250 mg p.o. on alt. days . Do use Oxygen 2-3 L/minute use all the times . * Explained to the patient that she is already on maximum medical treatment for her COPD. There is not much else that we can add. Prognosis is poor. She should think about, and plan for palliative care's/comfort measures only. Code(s): J44.9 - Chronic obstructive pulmonary disease, unspecified (2) Pulmonary nodule: Comment: Patient being followed closely by thoracic surgery for pulmonary nodules. Code(s): R91.1 - Solitary pulmonary nodule (3) Chronic bronchitis: Comment: (continued low-grade bronchitis. - Will keep her on azithromycin 250 on alternate days.Dose of prednisone 20 mg a day, and will continue this for indefinite period. She fully understands the risks and side effects from continued use of steroids) Code(s): J42 - Unspecified chronic bronchitis (4) Anxiety: Comment: BECAUSE OF HER SEVERE OBSTRUCTIVE AIRWAY DISORDER AND MARKEDLY LIMITED PHYSICAL ACTIVITY, SHE IS HAVING FREQUENT ANXIETY ATTACKS . SHE IS AT A STAGE WHERE SHE WOULD NEED JUST PALLIATIVE/COMFORT LEVEL OF CARE. TO ALLEVIATE HER RESPIRATORY DISTRESS SHE CAN EITHER USE ANXIOLYTIC AGENT SMALL DOSE OF LORAZEPAM P.R.N. OR WE CAN GO TO MORPHINE SULFATE 5 MG Q 4-6 HOURS P.R.N.. CURRENTLY SHE IS BEING TREATED WITH OXYCODONE 3 TIMES A DAY FOR CONTROL OF PAIN IN THE SHOULDERS. SO SHE HAS NOT BEEN TAKING LORAZEPAM. Code(s): F41.9 - Anxiety disorder, unspecified (5) Respiratory failure with hypoxia: Comment: (Hypoxemia secondary to advanced COPD) TX : Advised to continue on oxygen 2-3 L/minute 24 hours 7 days a week. Goal is to keep O2 sat at or above 92 % Code(s): J96.91 - Respiratory failure, unspecified with hypoxia Coding Level of Care Code Est Pt Level 3 (60531) Diagnoses COPD (chronic obstructive pulmonary disease) J44.9 Pulmonary nodule R91.1 Chronic bronchitis J42 Anxiety F41.9 Respiratory failure with hypoxia J96.91
== END 2023-01-02 14:43 | disposition home or self-care (01) ==
PROVIDERS: PCP Internal Medicine; Visit Provider Internal Medicine
DX: J44.9 Chronic obstructive pulmonary disease, unspecified (principal); R91.1 Solitary pulmonary nodule; J96.91 Respiratory failure, unspecified with hypoxia; F41.9 Anxiety disorder, unspecified
CPT/HCPCS: 99213

== ENCOUNTER 2023-01-03 13:46 | Outpatient (AMB) | payer MEDICARE, SELFPAY ==
[2023-01-03 13:48] VITALS: BMI 21.8
--- NOTE | 2023-01-03 13:48 | A.OFFVIS_ITS ---
Intake Vital Signs 01/03/23 13:48 Height 5 ft 2 in Weight 119 lb BMI 21.8 Intake Visit Reasons: Newprob-B/L shoulder pain Intake Note: Blessing a 77 year old right hand dominant female who presents today with complaints of bilateral shoulder pain. Patient reports pain has been present for about 2-3 years with her right shoulder being the worse. Her pain comes with movement of her arm. Finds little relief with oxycodone 5mg. She had attended PT for right shoulder but stopped due to pandemic. Denies numbness or tingling. States in the past she had bilateral shoulder injection at [facility] that gave her minimal relief. Requesting bilateral shoulder injections. Patient reports surgery with Dr. Garza 11/2019 for her hip, states having discomfort/pain with getting up and moving. her pain radiates down her leg. Allergies No Known Allergies Allergy (Verified 01/03/23 13:49) HPI Newprob-B/L shoulder pain HPI Details 77-year-old right hand dominant female denise chirinos presents to the office today for evaluation of bilateral shoulder pain for about 2 years. She states she has bilateral shoulder pain which is worse in her right shoulder. Her pain is aggravated with ROM of her arm. She denies any numbness or tingling. She finds mild relief with oxycodone 5 mg. She had attended physical therapy for her right shoulder but had to discontinue due to the pandemic. She has had injections in the right shoulder in the past with significant relief. She does not have a history of diabetes. [facility] Medical History Respiratory failure with hypoxia Anxiety Tubular adenoma of colon (~2014) Cancer of upper lobe of left lung (~2020) Osteoporosis (~2018) History of pulmonary embolism (~2011) History of left breast cancer (~2008) Current use of anticoagulant therapy (~2011) Chronic bronchitis COPD (chronic obstructive pulmonary disease) Cancer of upper lobe of right lung (~2019) Closed intertrochanteric fracture with routine healing (~2019) Surgical History History of colonoscopy (~07/2014) History of tubal ligation History of lung surgery (~05/2020) History of tonsillectomy History of left breast biopsy (~03/2009) History of hip surgery (~11/2019) History of lumpectomy of left breast (~04/2009) History of appendectomy (~09/2012) History of lung surgery (~07/2019) Social History Household Members: Children Housing: House Alcohol intake: never Patient Tobacco Use Status: Former Tobacco user Years Smoked: 35pyh - quit 1997 service: No Current occupational status: disabled Review of Systems Const All systems reviewed & are unremarkable except as noted in HPI and below Physical Exam Vital Signs: BMI result Body Mass Index 21.8 Const General: cooperative and no acute distress Orientation/consciousness: patient oriented x3 Resp Effort & Inspection: normal respiratory effort and able to speak in complete sentences Cardio Peripheral pulses: Peripheral pulses 2+ throughout Neuro General: patient oriented x3 Extrem Other: Right shoulder: Normal to inspection. She has very limited ROM of shoulder with associated tenderness on movement. Left shoulder : Normal to inspection Limited ROM with tenderness. NVI. Office Procedures Joint Injection/Drain Joint Injection/Drain Primary Site: left shoulder Secondary Site: right shoulder Prep: site was prepped using aseptic technique, ethochloride spray was applied and injection warnings given Injected: 40 mg of, 80 mg of, with 8 mL of, 1% plain lidocaine and in the subcromial space Approach Used: posterolateral Procedure: The patient tolerated the procedure well and there was some relief with the local anesthesia Coding 11843 - Glenohumeral/Tronchanteric Bursa/Intraarticular Procedure code (CPT) selection complete Results Reviewed Results Reviewed: 01/03/23 14:12 Lidocaine HCl 2 % MPF [Xylocaine 2 % MPF] 5 ml .ROUTE .STK-MED ONE methylPREDNISolone acetate [DEPO-MedroL] 40 mg .ROUTE .STK-MED ONE Assessment & Plan Assessment & Plan (1) Rotator cuff arthropathy of right shoulder: Code(s): M12.811 - Other specific arthropathies, not elsewhere classified, right shoulder (2) Rotator cuff arthropathy of left shoulder: Code(s): M12.812 - Other specific arthropathies, not elsewhere classified, left shoulder Plan We discussed options today which include steroid injection. They did consent to move forward with the bilateral shoulder injection, which was tolerated well. I recommended rest, ice and elevation and OTC anti-inflammatories PRN for discomfort. If symptoms persist or worsens over the next 6-8 weeks, patient will contact the office, otherwise follow-up as needed. Patient Instructions: Scribed for Adolfo Real PA-C, by Sanju Coyne emergency medical technician basic, on 01/03/2023 at 2:00 PM EST. Adolfo Krishnan PA-C, have personally reviewed and agree with the information entered by the scribe. Coding Level of Care Code Est Pt Level 3 (22104) Diagnoses Rotator cuff arthropathy of right shoulder M12.811 Rotator cuff arthropathy of left shoulder M12.812 CPT Codes Coding - Joint 7: 74095 - Glenohumeral/Tronchanteric Bursa/Intraarticular ([id number])
== END 2023-01-03 14:46 | disposition home or self-care (01) ==
PROVIDERS: PCP Internal Medicine; Visit Provider Physician Assistant
DX: M12.811 Other specific arthropathies, not elsewhere classified, right shoulder (principal); M12.812 Other specific arthropathies, not elsewhere classified, left shoulder
CPT/HCPCS: 20610; 99213

== ENCOUNTER → 2023-01-03 13:46 | Outpatient (BNVA) | payer MEDICARE, SELFPAY | PROVIDERS: PCP Internal Medicine; Visit Provider Physician Assistant | DX: M12.811 Other specific arthropathies, not elsewhere classified, right shoulder (principal); M12.812 Other specific arthropathies, not elsewhere classified, left shoulder | CPT/HCPCS: 20610; 99212; J1020 ==

== ENCOUNTER 2023-01-11 14:34 | Outpatient (AMB) | payer MEDICARE, SELFPAY ==
--- NOTE | 2023-01-11 14:53 | MHC.OFFVISCO ---
Intake Intake Visit Reasons: Anticoagulation Allergies No Known Allergies Allergy (Verified 01/11/23 14:39) Medication List - Last Reconciled 01/11/23 by Rosana Felipe RN albuterol sulfate 90 mcg/actuation (Ventolin HFA) 2 puffs PO Q6H azithromycin 250 mg PO Q OTHER DAY cholecalciferol (vitamin D3) 50 mcg PO DAILY ciclopirox 0.77% topical diclofenac sodium 1% 1 ea topical TID PRN formoterol fumarate (Perforomist) 20 mcg (2 mL) inhalation BID ipratropium-albuterol 0.5 mg-3 mg(2.5 mg base)/3 mL 3 mL inhalation Q6H PRN lorazepam 0.5 mg PO BID PRN lorazepam 0.5 mg PO TID PRN 30 days oxycodone 5 - 10 mg PO Q6H oxycodone 10 mg PO Q6H PRN prednisone 20 mg PO DAILY warfarin (Jantoven) 1.5 mg See Protocol PO SUTUWEFRSA@1800 warfarin 3 mg See Protocol PO MOTH@1800 Nursing Note NO CP, INCREASED SOB,DIET/MED CHANGES,FALLS OR SX OF BLEEDING. CONTINUE PRESENT DOSE AND FOLLOW-UP IN 2 WEEKS. GOOD UNDERSTANDING OF DOSING INSTR. 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
== END 2023-01-11 14:55 | disposition home or self-care (01) ==
LOC: HO.ACS 14:34
PROVIDERS: PCP Internal Medicine; Visit Provider Internal Medicine
DX: Z79.01 Long term (current) use of anticoagulants (principal)

== ENCOUNTER → 2023-01-11 14:34 | Outpatient (BNVA) | payer MEDICARE, SELFPAY | PROVIDERS: PCP Internal Medicine; Visit Provider Internal Medicine | DX: I26.99 Other pulmonary embolism without acute cor pulmonale (principal); Z51.81 Encounter for therapeutic drug level monitoring; Z79.01 Long term (current) use of anticoagulants | CPT/HCPCS: 85610; 99211 ==

== ENCOUNTER 2023-01-24 11:24 | Outpatient (AMB) | payer MEDICARE, SELFPAY ==
--- NOTE | 2023-01-24 11:32 | MHC.OFFVIS ---
Intake Vital Signs 01/24/23 11:36 Height 5 ft 2 in Weight 119 lb BMI 21.8 Intake Visit Reasons: New Prob- Left hip pain possible injection Intake Note: Blessing trejo 77 year old female presents today for an evaluation of left hip pain. Patient reports pain has been present for about a year. Pain is intermittent, currently no pain. Her pain is located at the hip and radiates into her back. She is interested in discussing a cortisone injection. Allergies No Known Allergies Allergy (Verified 01/11/23 14:39) HPI HPI Comments History of Present Illness Details 77 yo female with left hip pain that radiates down the lateral aspect of the leg. Denies groin pain. Pain with sleeping on the left side. Denies n.t down the leg . S/p IMN left intertroch fx. [facility] Medical History Respiratory failure with hypoxia Anxiety Tubular adenoma of colon (~2014) Cancer of upper lobe of left lung (~2020) Osteoporosis (~2018) History of pulmonary embolism (~2011) History of left breast cancer (~2008) Current use of anticoagulant therapy (~2011) Chronic bronchitis COPD (chronic obstructive pulmonary disease) Cancer of upper lobe of right lung (~2019) Closed intertrochanteric fracture with routine healing (~2019) Surgical History History of colonoscopy (~07/2014) History of tubal ligation History of lung surgery (~05/2020) History of tonsillectomy History of left breast biopsy (~03/2009) History of hip surgery (~11/2019) History of lumpectomy of left breast (~04/2009) History of appendectomy (~09/2012) History of lung surgery (~07/2019) Social History Household Members: Children Housing: House Alcohol intake: never Patient Tobacco Use Status: Former Tobacco user Years Smoked: 35pyh - quit 1997 service: No Current occupational status: disabled Review of Systems Const All systems reviewed & are unremarkable except as noted in HPI and below Physical Exam Vital Signs: BMI result Body Mass Index 21.8 Const General: cooperative, healthy appearing and no acute distress Resp Effort & Inspection: normal respiratory effort and able to speak in complete sentences Cardio Rate: regular rate Peripheral pulses: Peripheral pulses 2+ throughout GI Palpation (GI): Soft to palpation Skin General skin exam: no rashes or lesions noted Extrem Other: Left hip normal to inspection. No pain with ROM of the hip. Pain along the greater trochanter. No pain with hip flexion or abduction.There is no tenderness along the si joint, Negative SLR. NVI. Office Procedures Joint Injection/Drain Joint Injection/Drain Details: left trochanteric bursa Prep: site was prepped using aseptic technique, ethochloride spray was applied and injection warnings given Injected: 80 mg of, DepoMedrol, with 8 mL of and 1% plain lidocaine Procedure: The patient tolerated the procedure well and there was some relief with the local anesthesia Coding 31494 - Glenohumeral/Tronchanteric Bursa/Intraarticular Procedure code (CPT) selection complete Assessment & Plan Assessment & Plan (1) Trochanteric bursitis, left hip: Code(s): M70.62 - Trochanteric bursitis, left hip Plan We discussed options today, which include steroid injection. The patient did consent to move forward with the injection in the left hip, which was tolerated well.? I recommended rest, ice and elevation and OTC antiinflammatories prn for discomfort. If symptoms persist over the next 6-8 weeks, they will contact our office, otherwise, prn Coding Level of Care Code Est Pt Level 3 (00189) Diagnoses Trochanteric bursitis, left hip M70.62 CPT Codes Coding - Joint 7: 91894 - Glenohumeral/Tronchanteric Bursa/Intraarticular ([id number])
[2023-01-24 11:36] VITALS: BMI 21.8
== END 2023-01-24 13:09 | disposition home or self-care (01) ==
PROVIDERS: PCP Internal Medicine; Visit Provider Physician Assistant
DX: M70.62 Trochanteric bursitis, left hip (principal)
CPT/HCPCS: 20610; 99213

== ENCOUNTER → 2023-01-24 11:24 | Outpatient (BNVA) | payer MEDICARE, SELFPAY | PROVIDERS: PCP Internal Medicine; Visit Provider Physician Assistant | DX: M70.62 Trochanteric bursitis, left hip (principal) | CPT/HCPCS: 20610; 99212; J1040 ==

== ENCOUNTER 2023-01-25 13:27 | Outpatient (AMB) | payer MEDICARE, SELFPAY ==
--- NOTE | 2023-01-25 13:32 | MHC.OFFVISCO ---
Intake Intake Visit Reasons: Anticoagulation Allergies No Known Allergies Allergy (Verified 01/25/23 13:28) Medication List - Last Reconciled 01/25/23 by Shyla Rojas RN albuterol sulfate 90 mcg/actuation (Ventolin HFA) 2 puffs PO Q6H azithromycin 250 mg PO Q OTHER DAY cholecalciferol (vitamin D3) 50 mcg PO DAILY ciclopirox 0.77% topical diclofenac sodium 1% 1 ea topical TID PRN formoterol fumarate (Perforomist) 20 mcg (2 mL) inhalation BID ipratropium-albuterol 0.5 mg-3 mg(2.5 mg base)/3 mL 3 mL inhalation Q6H PRN lorazepam 0.5 mg PO BID PRN lorazepam 0.5 mg PO TID PRN 30 days oxycodone 5 - 10 mg PO Q6H oxycodone 10 mg PO Q6H PRN prednisone 20 mg PO DAILY warfarin (Jantoven) 1.5 mg See Protocol PO SUTUWEFRSA@1800 warfarin 3 mg See Protocol PO MOTH@1800 Nursing Note INR: 2.7- in therapeutic range Medications and supplements reviewed No changes in health, diet, medications, or supplements, Denies any signs and symptoms of bleeding or bruising or clotting. Bleeding, bruising, clotting discussed Nutritional guidance given Dose: 1.5mg x 3, 3mg x 4 F/U INR: 2 weeks Patient verbalizes understanding of instructions given pt has small ulcer on left lower extrem, dressing intact, pt states goes to wound clinic. she states is having ultrasound of lower extrem today pt to acs in wheelchair acompanied by abrahan Anti-Coag Initial Assessment Social Hx Patient Tobacco Use Status: Former Tobacco user alcohol intake: never Alcohol intake frequency: 0-2 drinks per day Coding Level of Care Code Est Patient Level 1 Diagnoses Current use of anticoagulant therapy Z79.01 Results AMB INR Fingerstick AMB INR Fingerstick 2.7 Last Edit by Shyla Rojas RN on 01/25/23 13:34 Assessment & Plan Assessment & Plan (1) Current use of anticoagulant therapy: Onset Date: ~2011 Comment: (On Warfarin - hx PE & Right leg DVT 05/2011) 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
[2023-01-25 13:34] LABS: Prothrombin Time Whole Bld POC 32.4 sec (11.1-13.5); ~PT, ~INR - Anti Coag Clinic 2.7 (0.9-1.1)
== END 2023-01-25 13:41 | disposition home or self-care (01) ==
LOC: HO.ACS 13:27
PROVIDERS: PCP Internal Medicine; Visit Provider Internal Medicine
DX: Z79.01 Long term (current) use of anticoagulants (principal)

== ENCOUNTER 2023-01-25 13:41 | Outpatient (REF) | payer MEDICARE, SELFPAY ==
--- NOTE | ~2023-01-25 | US_ITS ---
EXAMINATION: NONINVASIVE ASSESSMENT OF THE ARTERIES OF BOTH LOWER EXTREMITIES WITH PVR EXAM AND BILATERAL LOWER EXTREMITY DUPLEX Annabelle Chiu MD CLINICAL INFORMATION: Peripheral vascular disease TECHNIQUE: Ankle pulse volume recordings, ankle pressure measurements and ankle brachial indices were obtained of the lower extremity arterial system bilaterally in addition to duplex Doppler techniques (on the right) with wave form analysis and measurement of velocities in the common femoral, profunda femoral, superficial femoral, popliteal and tibial arteries. The study was performed only at rest. COMPARISON: None FINDINGS: Incidental note is made of cardiac arrhythmia. a) AT REST: RIGHT LE. The right ankle-brachial index is: 1.32 * >0.97-1.25 = normal - no significant arterial disease * 0.75-0.96 = mild peripheral arterial disease * 0.5-0.74 = moderate peripheral arterial disease * <0.50 = severe peripheral arterial disease 2. Right ankle pressure: Abnormal 3. Right ankle PVR waveform: Abnormal 4. Right direct duplex Doppler findings: Common femoral artery: 157 cm/s, Multiphasic Profunda femoris artery: 90 cm/s, Multiphasic Superficial femoral artery (proximal): 82 cm/s, Multiphasic Superficial femoral artery (mid): 153 cm/s, Multiphasic Superficial femoral artery (distal): 81 cm/s, Multiphasic Proximal Popliteal artery: 62 cm/s, Multiphasic Mid posterior tibial artery: Occluded Peroneal artery: Occluded Anterior tibial artery: 51 cm/s, monophasic Dorsalis pedis artery: 50 cm/s, multiphasic LEFT LE. The left ankle-brachial index is: 1.32 * >0.97-1.25 = normal - no significant arterial disease * 0.75-0.96 = mild peripheral arterial disease * 0.5-0.74 = moderate peripheral arterial disease * <0.50 = severe peripheral arterial disease 2. Left ankle pressure: Abnormal 3. Left ankle PVR waveform: Abnormal US/US arterial duplex LE RT IMPRESSION: RIGHT LEG: Elevated ABIs suggesting atherosclerotic calcification. Abnormal PVR.The mid posterior tibial and peroneal arteries are occluded. The anterior tibial artery is patent. LEFT LEG: Elevated ABIs suggesting atherosclerotic calcification. Abnormal PVR.
--- NOTE | ~2023-01-25 | US_ITS ---
EXAMINATION: NONINVASIVE ASSESSMENT OF THE ARTERIES OF BOTH LOWER EXTREMITIES WITH PVR EXAM AND BILATERAL LOWER EXTREMITY DUPLEX Annabelle Chiu MD CLINICAL INFORMATION: Peripheral vascular disease TECHNIQUE: Ankle pulse volume recordings, ankle pressure measurements and ankle brachial indices were obtained of the lower extremity arterial system bilaterally in addition to duplex Doppler techniques (on the right) with wave form analysis and measurement of velocities in the common femoral, profunda femoral, superficial femoral, popliteal and tibial arteries. The study was performed only at rest. COMPARISON: None FINDINGS: Incidental note is made of cardiac arrhythmia. a) AT REST: RIGHT LE. The right ankle-brachial index is: 1.32 * >0.97-1.25 = normal - no significant arterial disease * 0.75-0.96 = mild peripheral arterial disease * 0.5-0.74 = moderate peripheral arterial disease * <0.50 = severe peripheral arterial disease 2. Right ankle pressure: Abnormal 3. Right ankle PVR waveform: Abnormal 4. Right direct duplex Doppler findings: Common femoral artery: 157 cm/s, Multiphasic Profunda femoris artery: 90 cm/s, Multiphasic Superficial femoral artery (proximal): 82 cm/s, Multiphasic Superficial femoral artery (mid): 153 cm/s, Multiphasic Superficial femoral artery (distal): 81 cm/s, Multiphasic Proximal Popliteal artery: 62 cm/s, Multiphasic Mid posterior tibial artery: Occluded Peroneal artery: Occluded Anterior tibial artery: 51 cm/s, monophasic Dorsalis pedis artery: 50 cm/s, multiphasic LEFT LE. The left ankle-brachial index is: 1.32 * >0.97-1.25 = normal - no significant arterial disease * 0.75-0.96 = mild peripheral arterial disease * 0.5-0.74 = moderate peripheral arterial disease * <0.50 = severe peripheral arterial disease 2. Left ankle pressure: Abnormal 3. Left ankle PVR waveform: Abnormal US/US MAGDALENA complete IMPRESSION: RIGHT LEG: Elevated ABIs suggesting atherosclerotic calcification. Abnormal PVR.The mid posterior tibial and peroneal arteries are occluded. The anterior tibial artery is patent. LEFT LEG: Elevated ABIs suggesting atherosclerotic calcification. Abnormal PVR.
== END 2023-01-25 13:42 | disposition home or self-care (01) ==
LOC: HO.US 13:41
PROVIDERS: PCP Internal Medicine; Visit Provider Physician Assistant
DX: L97.812 Non-pressure chronic ulcer of other part of right lower leg with fat layer exposed (principal); I73.9 Peripheral vascular disease, unspecified; I26.99 Other pulmonary embolism without acute cor pulmonale; Z51.81 Encounter for therapeutic drug level monitoring; Z79.01 Long term (current) use of anticoagulants
CPT/HCPCS: 85610; 93923; 93926; 99211

== ENCOUNTER 2023-01-31 07:06 | Emergency (ER) | payer MEDICARE, SELFPAY ==
--- NOTE | ~2023-01-31 | XR_ITS ---
EXAMINATION: XR CHEST CLINICAL INFORMATION: Shortness of breath and bloody sputum COMPARISON: Chest radiograph 06/08/2022, CT chest 07/23/2022 TECHNIQUE: Frontal view of the chest was obtained. FINDINGS: Heart size within normal limits. There is no evidence of CHF. Marked biconvex thoracolumbar scoliosis is present. Old healed/healing fractures are seen. A chain suture line is present at the left lung apex. The lungs are otherwise clear without infiltrates, pleural effusions or lung masses. Severe degenerative changes and evidence of rotator cuff tear noted in both shoulders. XR/XR chest 1V IMPRESSION: No acute intrathoracic disease. Other incidental findings as described above.
--- NOTE | ~2023-01-31 | CT_ITS ---
EXAMINATION: CT ANGIOGRAM OF THE CHEST WITH AND WITHOUT CONTRAST (CT PULMONARY ANGIOGRAM FOR PE) CLINICAL INFORMATION: Reason for Exam coughing up blood, lung cancer, sob COMPARISON: CT chest 07/23/20172022 TECHNIQUE: Prior to contrast administration, noncontrast localization images were obtained. Subsequently, multidetector volumetric imaging was performed from the thoracic inlet to below the diaphragms following the administration of 65 mL Omnipaque 350 intravenous contrast. No contrast reaction reported Sagittal, coronal, and MIP oblique sagittal reformatted images were obtained on the CT workstation, uploaded to PACS, and reviewed. This CT examination was performed using dose optimization techniques as appropriate, variously including the following: *Automated exposure control *Adjustment of mA and/or kV according to patient size (this includes techniques or standardized protocols for targeted exams where dose is matched to indication/reason for exam; i.e. extremities or head) *Use of iterative reconstruction technique Total exam dose-length product 304 mGy-cm FINDINGS: QUALITY OF STUDY/CONTRAST BOLUS: Satisfactory. PULMONARY ARTERIES: No pulmonary emboli. THORACIC AORTA: No aneurysm. The descending thoracic aorta is tortuous. LUNG: Postop changes with suture lines are noted in both upper lobes. There is an enlarging nodule in the left suprahilar region measuring 3.1 x 3.1 x 3.4 cm on today's study whereas previously this measured 2.4 x 1.9 x 2.6 cm (8:158 compare prior 29:154). No other pulmonary nodules are seen. PLEURA: No pleural effusion or pneumothorax. MEDIASTINUM: Normal heart size. No pericardial effusion. Again noted are thyroid masses the largest measuring 2 cm on the right better evaluated with prior ultrasound No hilar or mediastinal lymphadenopathy-the exception of the above-mentioned abnormality which could represent either a perihilar lymph node or possibly a central lung mass. No evidence of septal bowing or right heart strain. CORONARY ARTERY CALCIFICATION: None visualized on this study. CHEST WALL/AXILLA: No axillary or internal mammary lymphadenopathy. Lobular mass in the left breast appears smaller on the current study consistent with a benign finding. OSSEOUS STRUCTURES: Multiple old healing rib fractures are seen. No acute fractures are identified. There is a healing right scapular fracture. No acute or suspicious osseous abnormality. UPPER ABDOMEN: No reflux of contrast into the hepatic veins to suggest elevated right heart pressures. CT/CT angio chest PE protocol IMPRESSION: 1. No evidence of pulmonary emboli. 2. Enlarging left suprahilar mass. This would be easily amenable to bronchoscopic guided navigational biopsy or percutaneous CT-guided lung biopsy. 3. Other benign-appearing findings as described above including decreased size of left breast mass, chronic bilateral rib fractures VTE: negative.
[2023-01-31 07:16] VITALS: BP 164/105; PULSE 96; RESP 26; TEMP 36.4; O2SAT 96; BMI 21.9
--- NOTE | 2023-01-31 07:22 | ECG_ITS ---
Test Reason : SOB Blood Pressure : / mmHG Vent. Rate : 086 BPM Atrial Rate : 086 BPM P-R Int : 148 ms QRS Dur : 066 ms QT Int : 382 ms P-R-T Axes : 064 -28 026 degrees QTc Int : 457 ms Sinus rhythm with Premature atrial complexes Moderate voltage criteria for LVH, may be normal variant ( R in aVL , Sokolow-Gautam ) Borderline ECG When compared with ECG of 23-JUL-2022 08:29, T wave inversion no longer evident in Anterolateral leads Referred By: Josue Burch Electronically Signed By:CAITIE WHITE MD
[2023-01-31 07:44] VITALS: PULSE 89; RESP 15; O2SAT 95
[2023-01-31] MEDS: Albuterol Sulfate 5 MG, Albuterol/Iprat 2.5/0.5MG 3 ML 3 ML INHALE (07:44)
[2023-01-31 08:31] LABS: MANUAL DIFF FLAG NO
[2023-01-31 08:33] LABS: VBG Base Excess 3.6 mmol/L; VBG HCO3 30 mmol/L (22-26); VBG pCO2 57 mmHg; VBG pH 7.34 (7.32-7.43); VBG pO2 43 mmHg
[2023-01-31 08:34] VITALS: BP 180/92; PULSE 98; RESP 18; TEMP 36.9; O2SAT 95
[2023-01-31 08:34] LABS: Venous Blood Gas Refer to POC result
[2023-01-31 08:38] LABS: Basophils Percent Auto 0.2 % (0-2); Eosinophils Absolute Auto 0.1 X10*3/uL (0.0-0.4); Eosinophils Percent Auto 0.3 % (0-4); Hematocrit 43.3 % (37.0-47.0); Hemoglobin 13.5 g/dl (12.0-16.0); Imm Gran Abs Auto 0.24 X10*3/uL (0.00-0.03); Imm Gran Pct Auto 1.3 % (0.0-0.4); Lymphocytes Absolute Auto 0.8 X10*3/uL (1.2-4.9); Lymphocytes Percent Auto 4.4 % (20-40); Mean Corpuscular HGB Conc 31.2 g/dl (31.0-35.0); Mean Corpuscular Hemoglobin 30.5 pg (27.0-33.0); Mean Corpuscular Volume 97.7 fL (80.0-98.0); Mean Platelet Volume 10.6 fL (9.4-12.3); Monocytes Absolute Auto 0.9 X10*3/uL (0.1-1.2); Monocytes Percent Auto 4.9 % (2-11); Neutrophils Absolute Auto 16.6 x10*3/uL (2.0-8.3); Neutrophils Percent Auto 88.9 % (45-73); Platelet Count 292 X10*3/uL (160-400); Red Blood Count 4.43 X10*6/uL (4.20-5.50); Red Cell Distribution Width 15.7 % (11.0-16.0); White Blood Count 18.7 X10*3/uL (4.8-10.8)
[2023-01-31 08:47] LABS: D Dimer High Sensitivity 316 NG/ML
[2023-01-31 08:56] LABS: Anion Gap 15 (12-20); Blood Urea Nitrogen 23 mg/dL (9-16); Calcium 9.2 mg/dL (8.4-10.2); Carbon Dioxide 28 mmol/L (22-29); Chloride 104 mmol/L (96-108); Creatinine Clr Calc Pharmacy 44.9; Estimated Glomerular Filt Rate > 60; Glucose Random 84 mg/dL (60-115); Potassium 4.1 mmol/L (3.3-5.1); Sodium 143 mmol/L (135-145)
[2023-01-31 09:05] LABS: Troponin-I High Sensitivity 26.3 ng/L (<3.5-17.0)
[2023-01-31] MEDS: methylPREDNISolone Sod Succ 125 MG/2 ML VIAL IVPUSH (09:11)
[2023-01-31] MEDS: oxyCODONE HCl Immed Release 5 MG TABLET 10 MG PO ×2 (09:27→15:51)
[2023-01-31 09:39] LABS: Influenza A PCR NEGATIVE (Negative); Influenza B PCR NEGATIVE (Negative); Resp Syncy Virus RNA Qual PCR NEGATIVE (Negative); SARS COV2 PCR INHOUSE NEGATIVE (Negative)
--- NOTE | 2023-01-31 09:56 | PC.NURSE ---
able to ambulate to commode with one assist. medicated per the MAR for chronic shoulder pain. EMS IV removed d/t patient reporting pain at the site. new IV established, labs obtained. awaiting CT scan at this time, call diaz/son at bedside.
[2023-01-31 10:17] LABS: INTERNATIONAL NORM RATIO 2.3 (0.9-1.1)
[2023-01-31] MEDS: iohexoL 350 MG/ML 100 ML INFUS..BTL 65 ML IV (10:55)
[2023-01-31 12:49] VITALS: PULSE 91; RESP 20; O2SAT 93
[2023-01-31] MEDS: Albuterol/Iprat 2.5/0.5MG 3 ML AMPUL.NEB INHALE (12:49)
[2023-01-31 13:16] VITALS: BP 141/93; PULSE 95; RESP 20; TEMP 37.1; O2SAT 93
--- NOTE | 2023-01-31 14:51 | ED_ITS ---
HPI - SOB/Dyspnea General Chief Complaint: Dyspnea Stated Complaint: SOB,HIGH BP 194/103, COUGH W/BLOOD PER EMS Time Seen by Provider: 01/31/23 07:16 Source: patient and EMS Mode of arrival: EMS Limitations: no limitations History of Present Illness HPI Narrative: Increasing shortness of breath for the past few days, in addition patient states she is having hemoptysis. She has a remote history of Lung cancer with 2 resections MD elicited complaint: shortness of breath and cough Onset (ago): day(s) Timing: constant Severity: moderate Known history of: COPD and other (lung cancer) Related Data Home Medications Medication Instructions Recorded Confirmed cholecalciferol (vitamin D3) 50 50 mcg PO DAILY 06/14/21 01/02/23 mcg (2,000 unit) capsule warfarin 3 mg tablet 3 mg PO MOTH@1800 07/24/21 01/25/23 warfarin 3 mg tablet (Jantoven) 1.5 mg PO SUTUWEFRSA@1800 07/24/21 01/25/23 diclofenac sodium 1 % topical gel 1 ea topical TID PRN Pain 06/09/22 01/02/23 oxycodone 5 mg tablet 5 - 10 mg PO Q6H 06/09/22 01/02/23 albuterol sulfate 90 mcg/actuation 2 puff PO Q6H 07/23/22 01/02/23 aerosol inhaler (Ventolin HFA) lorazepam 0.5 mg tablet 0.5 mg PO BID PRN anxiety/resp. 07/23/22 01/02/23 distress oxycodone 10 mg tablet 10 mg PO Q6H PRN 09/15/22 01/02/23 ciclopirox 0.77 % topical gel topical 01/02/23 01/02/23 Previous Rx's Medication Instructions Recorded formoterol fumarate 20 mcg/2 mL 20 mcg (2 mL) inhalation BID #60 ea 08/07/22 solution for nebulization (Perforomist) prednisone 20 mg tablet 20 mg PO DAILY #30 tabs 09/13/22 ipratropium 0.5 mg-albuterol 3 mg 3 ml inhalation Q6H PRN for 10/13/22 (2.5 mg base)/3 mL nebulization wheezing #1,080 mL soln lorazepam 0.5 mg tablet 0.5 mg PO TID PRN anxiety 30 days 11/01/22 #90 tabs azithromycin 250 mg tablet 250 mg PO Q OTHER DAY #45 tabs 12/22/22 Allergies Allergy/AdvReac Type Severity Reaction Status Date / Time No Known Allergies Allergy Verified 01/25/23 13:28 Review of Systems 2 Review of Systems: Yes all other systems are reviewed and are negative Neurologic: Denies Sensory deficit (Neuro) [facility] Past Medical History Medical History Respiratory failure with hypoxia Anxiety Tubular adenoma of colon (~2014) Cancer of upper lobe of left lung (~2020) Osteoporosis (~2018) History of pulmonary embolism (~2011) History of left breast cancer (~2008) Current use of anticoagulant therapy (~2011) Chronic bronchitis COPD (chronic obstructive pulmonary disease) Cancer of upper lobe of right lung (~2019) Closed intertrochanteric fracture with routine healing (~2019) Surgical History History of colonoscopy (~07/2014) History of tubal ligation History of lung surgery (~05/2020) History of tonsillectomy History of left breast biopsy (~03/2009) History of hip surgery (~11/2019) History of lumpectomy of left breast (~04/2009) History of appendectomy (~09/2012) History of lung surgery (~07/2019) Social History Social History Household Members: Children Housing: House Alcohol intake: never Patient Tobacco Use Status: Former Tobacco user Years Smoked: 35pyh - quit 1997 Advance Directives: No Advance Directives Information Provided: Yes service: No Current occupational status: disabled Physical Exam 2 Vital Signs: Vital Signs: Last Vital Signs Temp 98.7 F 01/31/23 13:16 Pulse 95 01/31/23 13:16 Resp 20 01/31/23 13:16 BP 141/93 H 01/31/23 13:16 Pulse Ox 93 01/31/23 13:16 O2 Del Method Room Air 01/31/23 13:16 BMI result Body Mass Index 21.9 Const: Other: cachectic ill appearing with shortness of breath Orientation/consciousness: oriented to person and patient oriented x3 L imitations: no limitations HEENT: Head: Yes normal to inspection Ears: external ears normal General nose exam: Normal external nose present Mouth: Normal oral and palatal mucosa present and oropharynx normal Throat: Yes posterior oropharynx normal Eyes: General: appearance normal, both eyes and all related structures Neck: Other: supple Neck: Yes normal visual inspection Chest: Chest palpation & inspection: normal inspection of the chest Resp: Other: very wet cough with distant BS Cardio: Jugular venous distension: no JVD Rate: regular rate Rhythm: r egular rhythm Heart sounds: S1 normal heart sound present and S2 normal heart sound present GI: Inspection: Yes normal to inspection Palpation (GI): Soft to palpation, nontender and No hepatosplenomegaly present Auscultation: normal bowel sounds : General: Yes no CVA tenderness Back/Spine/Pelvis: Back: no CVA tenderness Skin: General skin exam: no rashes or lesions noted Neuro: General: oriented to person and patient oriented x3 Cranial nerves: Yes CN's II-XII intact bilaterally Motor exam (neuro): 5/5 motor strength present throughout Sensory Exam: No Sensory deficit (Neuro) Extrem: General: Yes normal to inspection Psych: Appearance: grossly normal Course Reevaluation(s) Reevaluation #1: Discussed with Dr. Botello and interventional radiology they [place] [facility]: 15:10 Reevaluation #2: smoking cessation: patient counseled for 5 minutes on ways to stop smoking Time: 15:18 Reevaluation #3: patient accepted to [facility] Time: 15:47 Medications Administered Discontinued Medications Generic Name Dose Route Start Last Admin Trade Name Freq PRN Reason Stop Dose Admin Albuterol/Ipratropium 3 ml 01/31/23 12:43 01/31/23 12:49 Albuterol/Iprat 2.5/0.5mg 3 Ml Ampul.Neb INHALE 01/31/23 12:44 3 ml ONCE ONE Administration Albuterol Sulfate 5 mg/ 0 mg 01/31/23 07:37 01/31/23 07:44 Albuterol/Ipratropium 3 ml INHALE 01/31/23 07:38 5 each ONCE ONE Administration Iohexol 65 ml 01/31/23 10:55 01/31/23 10:55 Iohexol 350 Mg/Ml 100 Ml Infus..Btl IV 01/31/23 10:56 65 ml ONCE ONE Administration Methylprednisolone Sodium Succinate 125 mg 01/31/23 08:47 01/31/23 09:11 Methylprednisolone Sod Succ 125 Mg/2 Ml Vial IVPUSH 01/31/23 08:48 125 mg ONCE ONE Administration Oxycodone HCl 10 mg 01/31/23 09:23 01/31/23 09:27 Oxycodone Hcl Immed Release 5 Mg Tablet PO 01/31/23 09:24 10 mg ONCE ONE Administration Medical Decision Making Differential Diagnosis Differential Diagnoses: The differential diagnosis associated with the presentation includes (COPD exacerbation, pneumonia, covid, lung mass, hemoptysis) Admission/Observation Consideration of admission/observation: Escalation of care including admission/observation considered (upon arrival patient considered for admission) Consult Healthcare Provider Management of the patient was discussed with: 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 (elevated WBC noted) 01/31/23 08:17 01/31/23 08:17 Labs: Lab Results 01/31/23 01/31/23 01/31/23 Range/Units 08:17 08:28 09:39 WBC 18.7 H (4.8-10.8) X10*3/uL RBC 4.43 (4.20-5.50) X10*6/uL Hgb 13.5 (12.0-16.0) g/dl Hct 43.3 (37.0-47.0) % MCV 97.7 (80.0-98.0) fL MCH 30.5 (27.0-33.0) pg MCHC 31.2 (31.0-35.0) g/dl RDW 15.7 (11.0-16.0) % Plt Count 292 D (160-400) X10*3/uL MPV 10.6 (9.4-12.3) fL Immature Gran % (Auto) 1.3 H (0.0-0.4) % Neut % (Auto) 88.9 H (45-73) % Lymph % (Auto) 4.4 L (20-40) % [place] % (Auto) 4.9 (2-11) % Eos % (Auto) 0.3 (0-4) % Baso % (Auto) 0.2 (0-2) % Lymph # (Auto) 0.8 L (1.2-4.9) X10*3/uL [place] # (Auto) 0.9 (0.1-1.2) X10*3/uL Eos # (Auto) 0.1 (0.0-0.4) X10*3/uL Baso # (Auto) 0.0 (0.0-0.2) X10*3/uL Abs Immat Gran (auto) 0.24 H (0.00-0.03) X10*3/uL Absolute Neuts (auto) 16.6 H (2.0-8.3) x10*3/uL Absolute Nucleated RBC 0.000 (0.0-0.012) X10*3/uL Nucleated RBC % (auto) 0.0 (0.0-0.2) /100WBC PT 28.0 H (11.1-13.3) SEC INR 2.3 H (0.9-1.1) D-Dimer High Sensitivty 316 NG/ML VBG pH 7.34 (7.32-7.43) VBG pCO2 57 mmHg VBG pO2 43 mmHg VBG HCO3 30 H (22-26) mmol/L VBG O2 Saturation 62.0 % VBG Base Excess 3.6 mmol/L Sodium 143 (135-145) mmol/L Potassium 4.1 (3.3-5.1) mmol/L Chloride 104 (96-108) mmol/L Carbon Dioxide 28 (22-29) mmol/L Anion Gap 15 (12-20) BUN 23 H (9-16) mg/dL Creatinine 0.79 (0.5-1.4) mg/dL Estim Creat Clear Calc 44.9 Estimated GFR > 60 Random Glucose 84 (60-115) mg/dL Calcium 9.2 D (8.4-10.2) mg/dL Troponin I High Sens 26.3 H (<3.5-17.0) ng/L Influenza Type A (PCR) NEGATIVE (Negative) Influenza Type B (PCR) NEGATIVE (Negative) RSV RNA Qual (PCR) NEGATIVE (Negative) SARS-CoV-2 RNA (RT-PCR) NEGATIVE (Negative) Independent Interpretation I performed an independent interpretation of an: EKG (sinus 85, no st or twave changes) and Plain X-Ray (no infiltrate, left upper lobe nodule) Radiology Impression Discussion of test interpretation with radiology: I have reviewed the radiologist's reading. (CT with worsening left upper lobe mass) Independent Historian Clinical information obtained from an independent historian. History obtained from or confirmed by: EMS External Record Review External record reviewed: Outpatient record and Prior outpatient radiology Chronic Conditions Patient?s care impacted by: Other (COPD) Social Determinants Patient?s care significantly limited by Social Determinants of Health including: Other Social Determinant of Health (smoker) Discharge Plan Discharge Clinical Impression: Lung mass, COPD (chronic obstructive pulmonary disease), Cough with hemoptysis Patient Disposition: [facility] Transfer Details: needs interventional radiology Prescriptions: No Action formoterol fumarate [Perforomist] 20 mcg/2 mL solution for nebulization 20 mcg inhalation BID Qty: 60 11RF prednisone 20 mg tablet 20 mg PO DAILY Qty: 30 1RF ipratropium-albuterol 0.5 mg-3 mg(2.5 mg base)/3 mL solution for nebulization 3 ml inhalation Q6H PRN (Reason: for wheezing) Qty: 1080 0RF lorazepam 0.5 mg tablet 0.5 mg PO TID PRN (Reason: anxiety) 30 Days Qty: 90 3RF azithromycin 250 mg tablet 250 mg PO Q OTHER DAY Qty: 45 2RF warfarin [Jantoven] 3 mg tablet 1.5 mg PO SUTUWEFRSA@1800 Protocol: Dose Management Condition: Sunday (Week One) Dose/Route: 3 mg Instruction: 1 x 3 mg tablet Condition: Sunday Dose/Route: 1.5 mg Instruction: 0.5 x 3 mg tablets Condition: Sunday Dose/Route: 3 mg Instruction: 1 x 3 mg tablet Condition: Sunday Dose/Route: 1.5 mg Instruction: 0.5 x 3 mg tablets Condition: Dose/Route: 3 mg Instruction: 1 x 3 mg tablet Condition: Sunday Dose/Route: 1.5 mg Instruction: 0.5 x 3 mg tablets Condition: Sunday Dose/Route: 3 mg Instruction: 1 x 3 mg tablet Condition: Sunday (Week Two) Dose/Route: 3 mg Instruction: 1 x 3 mg tablet Condition: Sunday Dose/Route: 1.5 mg Instruction: 0.5 x 3 mg tablets Condition: Sunday Dose/Route: 3 mg Instruction: 1 x 3 mg tablet Condition: Sunday Dose/Route: 1.5 mg Instruction: 0.5 x 3 mg tablets Condition: Dose/Route: 3 mg Instruction: 1 x 3 mg tablet Condition: Sunday Dose/Route: 1.5 mg Instruction: 0.5 x 3 mg tablets Condition: Sunday Dose/Route: 3 mg Instruction: 1 x 3 mg tablet Protocol Text: Adjustment Start Date: 01/25/23 INR Value: 2.7 INR Date: 01/25/23 Recheck Date: 02/08/23 Additional Instructions: cont same dosing call with any changes in medications warfarin 3 mg Tablet 3 mg PO MOTH@1800 Protocol: Dose Management Condition: Sunday (Week One) Dose/Route: 3 mg Instruction: 1 x 3 mg tablet Condition: Sunday Dose/Route: 1.5 mg Instruction: 0.5 x 3 mg tablets Condition: Sunday Dose/Route: 3 mg Instruction: 1 x 3 mg tablet Condition: Sunday Dose/Route: 1.5 mg Instruction: 0.5 x 3 mg tablets Condition: Dose/Route: 3 mg Instruction: 1 x 3 mg tablet Condition: Sunday Dose/Route: 1.5 mg Instruction: 0.5 x 3 mg tablets Condition: Sunday Dose/Route: 3 mg Instruction: 1 x 3 mg tablet Condition: Sunday (Week Two) Dose/Route: 3 mg Instruction: 1 x 3 mg tablet Condition: Sunday Dose/Route: 1.5 mg Instruction: 0.5 x 3 mg tablets Condition: Sunday Dose/Route: 3 mg Instruction: 1 x 3 mg tablet Condition: Sunday Dose/Route: 1.5 mg Instruction: 0.5 x 3 mg tablets Condition: Dose/Route: 3 mg Instruction: 1 x 3 mg tablet Condition: Sunday Dose/Route: 1.5 mg Instruction: 0.5 x 3 mg tablets Condition: Sunday Dose/Route: 3 mg Instruction: 1 x 3 mg tablet Protocol Text: Adjustment Start Date: 01/25/23 INR Value: 2.7 INR Date: 01/25/23 Recheck Date: 02/08/23 Additional Instructions: cont same dosing call with any changes in medications lorazepam 0.5 mg tablet 0.5 mg PO BID PRN (Reason: anxiety/resp. distress) albuterol sulfate [Ventolin HFA] 90 mcg/actuation HFA aerosol inhaler 2 puff PO Q6H cholecalciferol (vitamin D3) 50 mcg (2,000 unit) capsule 50 mcg PO DAILY oxycodone 5 mg tablet 5 - 10 mg PO Q6H diclofenac sodium 1 % gel 1 ea topical TID PRN (Reason: Pain) oxycodone 10 mg tablet 10 mg PO Q6H PRN ciclopirox 0.77 % gel topical
--- NOTE | 2023-01-31 15:45 | PC.NURSE ---
patient remains in emergency room - continues to have a cough. resting quietly in room. reported coughing up large amount of blood prior to this RN entering room, unable to assess amount d/t being discarded before entering the room. patient to be transferred, aware of this.
[2023-01-31 16:00] VITALS: BP 141/90; PULSE 89; RESP 19; TEMP 37.3; O2SAT 93
--- NOTE | 2023-01-31 17:03 | PC.NURSE ---
attempted to call to give report with no answer
== END 2023-01-31 17:52 | disposition short-term general hospital (02) ==
PROVIDERS: Emergency Provider Emergency Medicine; PCP Internal Medicine
DX: J44.9 Chronic obstructive pulmonary disease, unspecified (principal); R05.9 Cough, unspecified; R04.2 Hemoptysis; R91.8 Other nonspecific abnormal finding of lung field; C34.11 Malignant neoplasm of upper lobe, right bronchus or lung; C34.12 Malignant neoplasm of upper lobe, left bronchus or lung; R06.02 Shortness of breath; Z20.822 Contact with and (suspected) exposure to COVID-19; Z20.828 Contact with and (suspected) exposure to other viral communicable diseases; F17.200 Nicotine dependence, unspecified, uncomplicated; Z79.01 Long term (current) use of anticoagulants; Z79.899 Other long term (current) drug therapy; Z71.6 Tobacco abuse counseling
CPT/HCPCS: 0241U; 36415; 71045; 71275; 80048; 82803; 84484; 85025; 85379; 85610; 87040; 93005; 94640; 96374; 99285; J2930; Q9967

== ENCOUNTER 2023-02-10 12:06 | Inpatient (IN) | payer MEDICARE, SELFPAY ==
[2023-02-10] VITALS (7 sets, daily range): BP systolic 136–180; BP diastolic 82–106; PULSE 81–92; RESP 16–20; TEMP 36.4–36.8; O2SAT 92–98; BMI 21.0; BMI 21.6
--- NOTE | 2023-02-10 | ECG_ITS ---
Test Reason : SOB Blood Pressure : / mmHG Vent. Rate : 089 BPM Atrial Rate : 089 BPM P-R Int : 136 ms QRS Dur : 068 ms QT Int : 382 ms P-R-T Axes : 033 -25 082 degrees QTc Int : 464 ms Sinus rhythm with Premature supraventricular complexes Minimal voltage criteria for LVH, may be normal variant ( R in aVL ) Nonspecific ST and T wave abnormality Abnormal ECG When compared with ECG of 31-JAN-2023 07:44, Nonspecific T wave abnormality now evident in Lateral leads Referred By: Generic ED Physician Electronically Signed By:CAITIE WHITE MD
--- NOTE | ~2023-02-10 | CT_ITS ---
EXAMINATION: CTA CHEST PE STUDY CLINICAL INFORMATION: SOB, dyspnea COMPARISON: 01/31/2023 TECHNIQUE: Prior to contrast administration, noncontrast localization images were obtained. After the administration of 65 mL of Omnipaque nonionic IV contrast, contiguous thin slice helical images were obtained through the thorax. Reformatted MIP images in the coronal and sagittal planes were obtained at the acquisition workstation. This CT examination was performed using dose optimization techniques as appropriate, variously including the following: *Automated exposure control *Adjustment of mA and/or kV according to patient size (this includes techniques or standardized protocols for targeted exams where dose is matched to indication/reason for exam; i.e. extremities or head) *Use of iterative reconstruction technique DLP: 247 mGy-cm. FINDINGS: The bolus timing on this study was acceptable for visualization of the pulmonary arterial tree. There are no intraluminal pulmonary arterial filling defects present to suggest pulmonary embolism. The left suprahilar soft tissue mass is again seen not significantly changed from the recent prior CT scan no new airspace disease. No significant hilar or mediastinal adenopathy. There is no evidence of pleural effusion or pneumothorax. Extensive vascular calcification in aorta. Otherwise the mediastinum is unremarkable. There is no pericardial effusion or pericardial thickening. Marked degenerative changes in the scoliotic spine and old healed bilateral rib fractures. Limited evaluation of the upper abdominal viscera is unremarkable. CT/CT angio chest PE protocol IMPRESSION: 1. No evidence for pulmonary emboli. 2. Left suprahilar soft tissue mass is again seen not significantly changed from the recent prior study. VTE: Negative.
[2023-02-10] MEDS: Albuterol Sulfate 2.5 MG, Albuterol/Iprat 2.5/0.5MG 3 ML 3 ML INHALE (12:16)
[2023-02-10 12:57] LABS: MANUAL DIFF FLAG NO
[2023-02-10 12:59] LABS: Basophils Percent Auto 0.2 % (0-2); Eosinophils Absolute Auto 0.1 X10*3/uL (0.0-0.4); Eosinophils Percent Auto 0.8 % (0-4); Hematocrit 36.8 % (37.0-47.0); Hemoglobin 11.7 g/dl (12.0-16.0); Imm Gran Abs Auto 0.23 X10*3/uL (0.00-0.03); Lymphocytes Percent Auto 9.1 % (20-40); Mean Corpuscular HGB Conc 31.8 g/dl (31.0-35.0); Mean Corpuscular Hemoglobin 30.2 pg (27.0-33.0); Mean Corpuscular Volume 95.1 fL (80.0-98.0); Monocytes Absolute Auto 0.6 X10*3/uL (0.1-1.2); Monocytes Percent Auto 5.4 % (2-11); Neutrophils Absolute Auto 9.4 x10*3/uL (2.0-8.3); Neutrophils Percent Auto 82.5 % (45-73); Platelet Count 228 X10*3/uL (160-400); Red Blood Count 3.87 X10*6/uL (4.20-5.50); White Blood Count 11.4 X10*3/uL (4.8-10.8)
[2023-02-10 13:04] LABS: VBG Base Excess 7.2 mmol/L; VBG HCO3 31 mmol/L (22-26); VBG pCO2 44 mmHg; VBG pH 7.45 (7.32-7.43); VBG pO2 51 mmHg
[2023-02-10 13:08] LABS: Venous Blood Gas Refer to POC result
[2023-02-10 13:13] LABS: D Dimer High Sensitivity 1651 NG/ML
[2023-02-10 13:17] LABS: Anion Gap 12 (12-20); Blood Urea Nitrogen 24 mg/dL (9-16); Calcium 8.7 mg/dL (8.4-10.2); Carbon Dioxide 27 mmol/L (22-29); Chloride 105 mmol/L (96-108); Creatinine Clr Calc Pharmacy 37.7; Estimated Glomerular Filt Rate 57; Glucose Random 88 mg/dL (60-115); Potassium 3.9 mmol/L (3.3-5.1); Sodium 140 mmol/L (135-145)
[2023-02-10] MEDS: methylPREDNISolone Sod Succ 125 MG/2 ML VIAL IVPUSH (13:27)
[2023-02-10 13:32] LABS: INTERNATIONAL NORM RATIO 0.8 (0.9-1.1); Prothrombin Time 10.2 SEC (11.1-13.3)
--- NOTE | 2023-02-10 13:42 | PC.NURSE ---
Late entry: Patient brought in via [facility] from home. Pt was seen last week for similar presentation and was found to have a PE. Pt was subsequently transferred to [facility] where per patient, she underwent a procedure to remove the blood clots . Pt was discharged from [place] a few days ago when she had sudden onset of SOB this am. Pt is baseline on 2L of O2, on room air she was satting at 89%. Pt stated she felt like she could not catch her breath. Pt also has non-productive cough. Lung sound coarse bilaterally. Pt came in with 20g IV in RW, this RN placed second IV 20g in RAC. Labs obtained, EKG obtained, pt on monitor. Pt medicated per JUN. Pt offers no complaints at this time. respirations even and unlabored, skin pwd, alert and oriented x4
--- NOTE | 2023-02-10 13:44 | ED.SOB ---
HPI - SOB/Dyspnea General Chief Complaint: Dyspnea Stated Complaint: SOB PER EMS Time Seen by Provider: 02/10/23 12:40 Source: patient and EMS Mode of arrival: EMS Limitations: no limitations History of Present Illness HPI Narrative: Patient is an 78-year-old female Presenting to the emergency department via EMS for evaluation of shortness of breath. She reports sudden onset of progressive shortness of breath yesterday while at rest, significantly worse today. She reports a history of lung cancer COPD, recent admission to [facility] 1 week ago as she was experiencing hemoptysis reporting that she had a blood clot that they removed? Or cleaned up by going down her throat, explaining of procedure sending similar to bronchoscopy. Upon review of her chart I noted that she was previously on long-term anticoagulation with warfarin, she states that she was on warfarin at the time that she presented to [facility], unclear whether this was a true pulmonary embolism. Nonetheless, she reports that after the procedure her warfarin was stopped for 1 week, she was discharged the same day and denies receiving any alternative anticoagulants or Lovenox injections. Her chronic cough has been worse, more persistent, but no productive phlegm. Reporting diffuse chest discomfort predominantly when coughing. Upon EMS arrival her O2 saturation was 89% on room air which improved to 96% on 2 L and had some improvement with DuoNeb . At home she has p.r.n. O2 via nasal cannula but states that she infrequently needs to use this. Related Data Home Medications Medication Instructions Recorded Confirmed cholecalciferol (vitamin D3) 50 50 mcg PO DAILY 06/14/21 01/02/23 mcg (2,000 unit) capsule warfarin 3 mg tablet 3 mg PO MOTH@1800 07/24/21 01/25/23 warfarin 3 mg tablet (Jantoven) 1.5 mg PO SUTUWEFRSA@1800 07/24/21 01/25/23 diclofenac sodium 1 % topical gel 1 ea topical TID PRN Pain 06/09/22 01/02/23 oxycodone 5 mg tablet 5 - 10 mg PO Q6H 06/09/22 01/02/23 albuterol sulfate 90 mcg/actuation 2 puff PO Q6H 07/23/22 01/02/23 aerosol inhaler (Ventolin HFA) lorazepam 0.5 mg tablet 0.5 mg PO BID PRN anxiety/resp. 07/23/22 01/02/23 distress oxycodone 10 mg tablet 10 mg PO Q6H PRN 09/15/22 01/02/23 ciclopirox 0.77 % topical gel topical 01/02/23 01/02/23 Previous Rx's Medication Instructions Recorded formoterol fumarate 20 mcg/2 mL 20 mcg (2 mL) inhalation BID #60 ea 08/07/22 solution for nebulization (Perforomist) prednisone 20 mg tablet 20 mg PO DAILY #30 tabs 09/13/22 ipratropium 0.5 mg-albuterol 3 mg 3 ml inhalation Q6H PRN for 10/13/22 (2.5 mg base)/3 mL nebulization wheezing #1,080 mL soln lorazepam 0.5 mg tablet 0.5 mg PO TID PRN anxiety 30 days 11/01/22 #90 tabs azithromycin 250 mg tablet 250 mg PO Q OTHER DAY #45 tabs 12/22/22 Allergies Allergy/AdvReac Type Severity Reaction Status Date / Time No Known Allergies Allergy Verified 01/25/23 13:28 Review of Systems Review of Systems: Yes all other systems are reviewed and are negative [facility] Past Medical History Attestation statement: The following information was validated with the patient. Source: old records reviewed Medical History Respiratory failure with hypoxia Anxiety Tubular adenoma of colon (~2014) Cancer of upper lobe of left lung (~2020) Osteoporosis (~2018) History of pulmonary embolism (~2011) History of left breast cancer (~2008) Current use of anticoagulant therapy (~2011) Chronic bronchitis COPD (chronic obstructive pulmonary disease) Cancer of upper lobe of right lung (~2019) Closed intertrochanteric fracture with routine healing (~2019) Surgical History History of colonoscopy (~07/2014) History of tubal ligation History of lung surgery (~05/2020) History of tonsillectomy History of left breast biopsy (~03/2009) History of hip surgery (~11/2019) History of lumpectomy of left breast (~04/2009) History of appendectomy (~09/2012) History of lung surgery (~07/2019) Social History Social History Household Members: Children Housing: House Alcohol intake: never Patient Tobacco Use Status: Former Tobacco user Years Smoked: 35pyh - quit 1998 Smoked in Last 30 Days: No Use of substances other than those prescribed or required for medical reasons: No Advance Directives: Yes Advance Directives on File: Yes Advance Directives Date on File: 07/25/22 service: No Current occupational status: disabled Physical Exam Vital Signs: Vital Signs: Last Vital Signs Temp 97.6 F 02/10/23 13:24 Pulse 91 02/10/23 13:24 Resp 18 02/10/23 13:24 BP 165/95 H 02/10/23 13:24 Pulse Ox 97 02/10/23 13:24 O2 Del Method Nasal Cannula 02/10/23 13:24 O2 Flow Rate 2 02/10/23 13:24 Oxygen Flow Rate 2 02/10/23 12:15 BMI result Body Mass Index 21.0 Appearance: Alert.?Oriented to person, place and time. No acute distress.?Normal affect. Eyes: Pupils equal, round and reactive to light.? ENT: Pharynx normal.?? Neck: Normal inspection.? Neck supple.?? CVS: Heart sounds normal. Normal heart rate and rhythm.? Pulses normal.?? Respiratory: No respiratory distress.? Lung sounds diminished, no overt wheezing Abdomen: Soft and non-tender. Normoactive bowel sounds. Skin: Skin warm and dry.? Normal skin color.? Extremities: No lower extremity edema.? No calf ttp? Neuro: Moves all extremities spontaneously. Sensation intact bilaterally. CN II-XII intact. No focal neuro deficits. Ambulates with normal steady gait. Course Reevaluation(s) Reevaluation #1: CBC revealing mild leukocytosis of 11.4 with left shift, not meeting criteria for SIRS, at this time continued to have low suspicion for sepsis. Microcytic anemia not needing transfusion criteria with no active bleeding. INR subtherapeutic at 0.8, patient has only taken a single dose since reinitiating. D- dimer is elevated, CT angio of the chest with PE protocol is pending. BMP is overall unremarkable. EKG revealing sinus rhythm without acute ischemic abnormalities. She reports some improvement after receiving albuterol nebulizer and is feeling increasingly anxious which she reports is worsening her sensation of shortness of breath, takes lorazepam 0.5 mg orally at home and requesting at this time which I think is reasonable. Time: 14:20 Reevaluation #2: CT angio of the chest without evidence of pulmonary emboli, left suprahilar soft tissue mass visualized again without significant change from prior study, no adenopathy, no pleural effusion, pneumothorax. BNP and troponin is pending, low suspicion for acute CHF exacerbation /ACS. She continues to report significant shortness of breath with minimal exertion. Patient signed out to Rosio CALLOWAY pending re-evaluation and labs Time: 15:28 Medications Administered Discontinued Medications Generic Name Dose Route Start Last Admin Trade Name Freq PRN Reason Stop Dose Admin Albuterol Sulfate 2.5 mg/ 0 mg 02/10/23 12:10 02/10/23 12:16 Albuterol/Ipratropium 3 ml INHALE 02/10/23 12:11 1 dose ONCE ONE Administration Iohexol 65 ml 02/10/23 14:08 02/10/23 14:08 Iohexol 350 Mg/Ml 100 Ml Infus..Btl IV 02/10/23 14:09 65 ml ONCE ONE Administration Lorazepam 0.5 mg 02/10/23 14:28 02/10/23 14:33 Lorazepam 0.5 Mg Tablet PO 02/10/23 14:29 0.5 mg ONCE ONE Administration Methylprednisolone Sodium Succinate 125 mg 02/10/23 13:20 02/10/23 13:27 Methylprednisolone Sod Succ 125 Mg/2 Ml Vial IVPUSH 02/10/23 13:21 125 mg ONCE ONE Administration Medical Decision Making Medical Decision Making MDM Narrative: patient is an 78-year-old female past medical history of 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 At the time of my examination she is noted to have increased work of be thing, speaking short but clear sentences, mild tachypnea, no hypoxia on 2 L via nasal cannula. Given history and physical examination concern at this time for COPD exacerbation verses pneumonia versus pulmonary embolism , less likely ACS, pulmonary mass. currently, not meeting sirs criteria , unlikely sepsis. Will obtain CBC to evaluate for leukocytosis/ anemia, CMP and lipase to evaluate for abnormal electrolytes /abnormal renal function/ abnormal hepatic/biliary function, EKG and troponin to evaluate for ischemia/ACS CT angio of the chest. placed orders for ED bronch protocol in addition to Solu-Medrol 125 mg IV.. Differential Diagnosis Differential Diagnoses: The differential diagnosis associated with the presentation includes Admission/Observation Consideration of admission/observation: Escalation of care including admission/observation considered ( I considered admission for shortness of breath, see narrative above in course narrative for further detail) Lab Data MDM Lab Attestation statement: I reviewed the patient's lab results. ( see course narrative for further detail) 02/10/23 12:52 02/10/23 12:52 Labs: Lab Results 02/10/23 02/10/23 Range/Units 12:52 12:59 WBC 11.4 H (4.8-10.8) X10*3/uL RBC 3.87 L (4.20-5.50) X10*6/uL Hgb 11.7 L (12.0-16.0) g/dl Hct 36.8 L (37.0-47.0) % MCV 95.1 (80.0-98.0) fL MCH 30.2 (27.0-33.0) pg MCHC 31.8 (31.0-35.0) g/dl RDW 16.0 (11.0-16.0) % Plt Count 228 (160-400) X10*3/uL MPV 10.0 (9.4-12.3) fL Immature Gran % (Auto) 2.0 H (0.0-0.4) % Neut % (Auto) 82.5 H (45-73) % Lymph % (Auto) 9.1 L (20-40) % [place] % (Auto) 5.4 (2-11) % Eos % (Auto) 0.8 (0-4) % Baso % (Auto) 0.2 (0-2) % Lymph # (Auto) 1.0 L (1.2-4.9) X10*3/uL [place] # (Auto) 0.6 (0.1-1.2) X10*3/uL Eos # (Auto) 0.1 (0.0-0.4) X10*3/uL Baso # (Auto) 0.0 (0.0-0.2) X10*3/uL Abs Immat Gran (auto) 0.23 H (0.00-0.03) X10*3/uL Absolute Neuts (auto) 9.4 H (2.0-8.3) x10*3/uL Absolute Nucleated RBC 0.000 (0.0-0.012) X10*3/uL Nucleated RBC % (auto) 0.0 (0.0-0.2) /100WBC PT 10.2 L D (11.1-13.3) SEC INR 0.8 L (0.9-1.1) D-Dimer High Sensitivty 1651 NG/ML VBG pH 7.45 H (7.32-7.43) VBG pCO2 44 mmHg VBG pO2 51 mmHg VBG HCO3 31 H (22-26) mmol/L VBG O2 Saturation 79.0 % VBG Base Excess 7.2 mmol/L Sodium 140 (135-145) mmol/L Potassium 3.9 (3.3-5.1) mmol/L Chloride 105 (96-108) mmol/L Carbon Dioxide 27 (22-29) mmol/L Anion Gap 12 (12-20) BUN 24 H (9-16) mg/dL Creatinine 0.94 (0.5-1.4) mg/dL Estim Creat Clear Calc 37.7 Estimated GFR 57 Random Glucose 88 (60-115) mg/dL Calcium 8.7 (8.4-10.2) mg/dL B-Natriuretic Peptide Cancelled Independent Interpretation I performed an independent interpretation of an: EKG and CT Scan Interpretation: Rate: 89 Rhythm:? sinus rhythm premature ventricular complex Normal P waves.? Normal GERRI.?? Normal QRS complex.?? ST T wave :?? no ST elevation, no ST depression qTC: 464 The study has been interpreted contemporaneously by me. Radiology Impression Discussion of test interpretation with radiology: I have reviewed the radiologist's reading. Independent Historian Clinical information obtained from an independent historian. History obtained from or confirmed by: EMS External Record Review External record reviewed: Outpatient record Critical Care Time Critical Care Time Critical Care Time: Yes Total Critical Care Time: 35 Attestation: I personally attest to this critical care time spent taking care of the patient exclusive of all other billable procedures was approximately 35 minutes including initial evaluation of patient, ordering tests, x-ray interpretation, EKG interpretation, medical consultation, documentation, re-evaluation. Discharge Plan Discharge Clinical Impression: Shortness of breath Patient Disposition: Still a Patient Prescriptions: No Action formoterol fumarate [Perforomist] 20 mcg/2 mL solution for nebulization 20 mcg inhalation BID Qty: 60 11RF prednisone 20 mg tablet 20 mg PO DAILY Qty: 30 1RF ipratropium-albuterol 0.5 mg-3 mg(2.5 mg base)/3 mL solution for nebulization 3 ml inhalation Q6H PRN (Reason: for wheezing) Qty: 1080 0RF lorazepam 0.5 mg tablet 0.5 mg PO TID PRN (Reason: anxiety) 30 Days Qty: 90 3RF azithromycin 250 mg tablet 250 mg PO Q OTHER DAY Qty: 45 2RF warfarin [Jantoven] 3 mg tablet 1.5 mg PO SUTUWEFRSA@1800 Protocol: Dose Management Condition: Sunday (Week One) Dose/Route: 3 mg Instruction: 1 x 3 mg tablet Condition: Sunday Dose/Route: 1.5 mg Instruction: 0.5 x 3 mg tablets Condition: Sunday Dose/Route: 3 mg Instruction: 1 x 3 mg tablet Condition: Sunday Dose/Route: 1.5 mg Instruction: 0.5 x 3 mg tablets Condition: Dose/Route: 3 mg Instruction: 1 x 3 mg tablet Condition: Sunday Dose/Route: 1.5 mg Instruction: 0.5 x 3 mg tablets Condition: Sunday Dose/Route: 3 mg Instruction: 1 x 3 mg tablet Condition: Sunday (Week Two) Dose/Route: 3 mg Instruction: 1 x 3 mg tablet Condition: Sunday Dose/Route: 1.5 mg Instruction: 0.5 x 3 mg tablets Condition: Sunday Dose/Route: 3 mg Instruction: 1 x 3 mg tablet Condition: Sunday Dose/Route: 1.5 mg Instruction: 0.5 x 3 mg tablets Condition: Dose/Route: 3 mg Instruction: 1 x 3 mg tablet Condition: Sunday Dose/Route: 1.5 mg Instruction: 0.5 x 3 mg tablets Condition: Sunday Dose/Route: 3 mg Instruction: 1 x 3 mg tablet Protocol Text: Adjustment Start Date: 01/25/23 INR Value: 2.7 INR Date: 01/25/23 Recheck Date: 02/08/23 Additional Instructions: cont same dosing call with any changes in medications warfarin 3 mg Tablet 3 mg PO MOTH@1800 Protocol: Dose Management Condition: Sunday (Week One) Dose/Route: 3 mg Instruction: 1 x 3 mg tablet Condition: Sunday Dose/Route: 1.5 mg Instruction: 0.5 x 3 mg tablets Condition: Sunday Dose/Route: 3 mg Instruction: 1 x 3 mg tablet Condition: Sunday Dose/Route: 1.5 mg Instruction: 0.5 x 3 mg tablets Condition: Dose/Route: 3 mg Instruction: 1 x 3 mg tablet Condition: Sunday Dose/Route: 1.5 mg Instruction: 0.5 x 3 mg tablets Condition: Sunday Dose/Route: 3 mg Instruction: 1 x 3 mg tablet Condition: Sunday (Week Two) Dose/Route: 3 mg Instruction: 1 x 3 mg tablet Condition: Sunday Dose/Route: 1.5 mg Instruction: 0.5 x 3 mg tablets Condition: Sunday Dose/Route: 3 mg Instruction: 1 x 3 mg tablet Condition: Sunday Dose/Route: 1.5 mg Instruction: 0.5 x 3 mg tablets Condition: Dose/Route: 3 mg Instruction: 1 x 3 mg tablet Condition: Sunday Dose/Route: 1.5 mg Instruction: 0.5 x 3 mg tablets Condition: Sunday Dose/Route: 3 mg Instruction: 1 x 3 mg tablet Protocol Text: Adjustment Start Date: 01/25/23 INR Value: 2.7 INR Date: 01/25/23 Recheck Date: 02/08/23 Additional Instructions: cont same dosing call with any changes in medications lorazepam 0.5 mg tablet 0.5 mg PO BID PRN (Reason: anxiety/resp. distress) albuterol sulfate [Ventolin HFA] 90 mcg/actuation HFA aerosol inhaler 2 puff PO Q6H cholecalciferol (vitamin D3) 50 mcg (2,000 unit) capsule 50 mcg PO DAILY oxycodone 5 mg tablet 5 - 10 mg PO Q6H diclofenac sodium 1 % gel 1 ea topical TID PRN (Reason: Pain) oxycodone 10 mg tablet 10 mg PO Q6H PRN ciclopirox 0.77 % gel topical
[2023-02-10] MEDS: iohexoL 350 MG/ML 100 ML INFUS..BTL 65 ML IV (14:08)
[2023-02-10] MEDS: LORazepam 0.5 MG TABLET PO (14:33)
--- NOTE | 2023-02-10 14:43 | PC.NURSE ---
pt reports needing to urinate. This RN and [place] PCT placed patient on purewick. Pt using well with no issue at this time. Pt now resting, respirations even and unlabored, skin pwd, alert and oriented x4.
[2023-02-10 15:54] LABS: Troponin-I High Sensitivity 31.5 ng/L (<3.5-17.0)
[2023-02-10] MEDS: guaiFENesin LA 600 MG TAB.ER.12H PO (16:40)
[2023-02-10 17:06] LABS: Troponin-I High Sensitivity 32.2 ng/L (<3.5-17.0)
[2023-02-10 17:21] LABS: Influenza A PCR NEGATIVE (Negative); Influenza B PCR NEGATIVE (Negative); Resp Syncy Virus RNA Qual PCR NEGATIVE (Negative); SARS COV2 PCR INHOUSE NEGATIVE (Negative)
--- NOTE | 2023-02-10 17:45 | PM.IMHP ---
History of Present Illness Date of Service: 02/10/23 Attending physician on admission: Frida Sherman Chief Complaint: SOB, difficulty breathing Pt is an 78-year-old female with a PMH significant for?end-stage COPD, multiple PEs, hx of breast cancer, hx of lung cancer with two separate resections in right upper lobe (2019) and left upper lobe (2019), and osteoarthritis who presents to the ED with?worsening shortness of breath x2 days. Patient has a long and complex pulmonary history including severe COPD and history of lung cancer with two separate resections and right and left upper lobes. Patient has chronic shortness of breath and home O2 prn, though she states she rarely uses it. Patient last presented to the ED 10 days ago on 01/31/2023 for evaluation of hemoptysis. Patient was transferred to [place] where she underwent a procedure to ?clean it up?. Patient is unclear exactly what happened, but sounds like possible bronchoscopy. She was released from [place] on Sunday02/02/2023 and states she has not had any hemoptysis since. Patient's warfarin was held for 7 days and restarted today. She reports feeling ?okay? since discharge up until yesterday when she suddenly ?could not breathe? or ?catch my breath?. Had increasing SOB and dyspnea with the slightest movement. Symptoms worsened today and patient got scared, deciding to present to the ED for further evaluation. Has chronic cough which seems around baseline, but has been wet sounding but nonproductive. Patient states it feels like she is coughing up mucus that gets stuck in her throat and she is unable to cough anything up. Denies fever, chills, nausea, vomiting, abdominal pain. No chest pain/pressure, palpitations. Denies pleuritic inspiratory chest pain. No headache. In the ED patient was afebrile with heart rate as high as 92, slightly hypertensive at 170/99, and desatting to 88% on RA with movement. Labs were significant for leukocytosis of 11.4, H&H 11.7/36.8, initial troponin 31.5 with repeat flat at 32.2, D-dimer elevated at 1651. Electrolytes WNL. Renal function baseline. CTA of chest negative for pulmonary emboli, but redemonstrated left suprahilar soft tissue mass?not significantly changed from prior study 1 week ago. EKG demonstrated sinus rhythm with PVCs and nonspecific ST and T-wave abnormalities. Pt was treated with guaifenesin, Ativan, Solu-Medrol, and DuoNebs. Pt will be admitted to the hospital for treatment and further evaluation of acute hypoxic respiratory failure in the setting of acute COPD exacerbation. Review of Systems Review of Systems: Increasing SOB, dyspnea Increased mucus production, unable to cough up Denies chest pain/pressure, palpitations No fever, chills, nausea, vomiting, abdominal pain Denies hemoptysis [facility] Medical History Respiratory failure with hypoxia Anxiety Tubular adenoma of colon (~2014) Cancer of upper lobe of left lung (~2020) Osteoporosis (~2018) History of pulmonary embolism (~2011) History of left breast cancer (~2008) Current use of anticoagulant therapy (~2011) Chronic bronchitis COPD (chronic obstructive pulmonary disease) Cancer of upper lobe of right lung (~2019) Closed intertrochanteric fracture with routine healing (~2019) Surgical History History of colonoscopy (~07/2014) History of tubal ligation History of lung surgery (~05/2020) History of tonsillectomy History of left breast biopsy (~03/2009) History of hip surgery (~11/2019) History of lumpectomy of left breast (~04/2009) History of appendectomy (~09/2012) History of lung surgery (~07/2019) Social History Household Members: Children Housing: House Alcohol intake: never Patient Tobacco Use Status: Former Tobacco user Years Smoked: 35pyh - quit 1998 Smoked in Last 30 Days: No Use of substances other than those prescribed or required for medical reasons: No Advance Directives: Yes Advance Directives on File: Yes Advance Directives Date on File: 07/25/22 Nutrition Risks: No Nutritional Risk service: No Current occupational status: disabled Meds Allergies Allergy/AdvReac Type Severity Reaction Status Date / Time No Known Allergies Allergy Verified 01/25/23 13:28 Home Medications Medication Instructions Recorded Confirmed Last Taken Type cholecalciferol (vitamin D3) 50 50 mcg PO DAILY 06/14/21 02/10/2323 History mcg (2,000 unit) capsule warfarin 3 mg tablet 3 mg PO SUTUTHSA@1800 07/24/21 02/10/23 07/18/21 History warfarin 3 mg tablet (Jantoven) 1.5 mg PO MOWEFR@1800 07/24/21 02/10/23 02/09/23 History albuterol sulfate 90 mcg/actuation 2 puff PO Q6H PRN Shortness Of 07/23/22 02/10/23 Unknown History aerosol inhaler (Ventolin HFA) Breath Or Wheezing oxycodone 10 mg tablet 10 mg PO Q6H PRN Moderate Pain 09/15/22 02/10/23 02/09/23 History (Scale Score 5-6) ciclopirox 0.77 % topical gel 1 appl topical DAILY 01/02/23 02/10/23 02/09/23 History diclofenac sodium 1 % topical gel 2 g topical BID PRN Pain 02/10/23 02/10/23 Unknown History formoterol fumarate 20 mcg/2 mL 20 mcg inhalation BID@0900,1700 02/10/23 02/10/23 02/09/23 History solution for nebulization (Perforomist) ipratropium 0.5 mg-albuterol 3 mg 3 ml inhalation BID@1300,2100 for 02/10/23 02/10/23 02/09/23 History (2.5 mg base)/3 mL nebulization wheezing soln prednisone 20 mg tablet 20 mg PO DAILY 02/10/23 02/10/23 02/09/23 History Physical Exam Vital Signs and Narrative: Vital Signs: Last Vital Signs Temp 98.3 F 02/10/23 16:40 Pulse 82 02/10/23 16:40 Resp 20 02/10/23 16:40 BP 136/83 02/10/23 16:40 Pulse Ox 96 02/10/23 16:40 O2 Del Method Room Air 02/10/23 16:40 O2 Flow Rate 2 02/10/23 13:24 Oxygen Flow Rate 2 02/10/23 12:15 BMI result Body Mass Index 21.0 Constitutional: Alert, frail-looking, in no acute distress. Mental Status: Oriented to person, place and time. Eyes: Pupils are equal, round, and reactive to light. Ear, Nose, and Throat: Oropharynx clear, mucous membranes moist. Ears and nose without deformities. Trachea midline. Respiratory: Lung sounds diminished bilaterally, though clear to auscultation clear to auscultation. No wheezing, rales, or rhonchi. Cardiovascular: S1, S2 regular. No murmurs, rubs, or gallops. Gastrointestinal: Abdomen soft, non-tender, non-distended. Normal bowel sounds. Neurologic: Cranial nerves II-XII are grossly intact bilaterally. No focal neurological deficits. Moves all extremities spontaneously. Skin: Warm, dry. Musculoskeletal: No cyanosis or clubbing. Extremities: No edema. Psychiatric: Normal mood and affect. Results Labs 02/10/23 12:52 02/10/23 12:52 Labs: Laboratory Results - last 24 hr 02/10/23 02/10/23 02/10/23 12:52 12:52 12:59 MCV 95.1 MCH 30.2 MCHC 31.8 RDW 16.0 Plt Count 228 MPV 10.0 Immature Gran % (Auto) 2.0 H Neut % (Auto) 82.5 H Lymph % (Auto) 9.1 L [place] % (Auto) 5.4 Eos % (Auto) 0.8 Baso % (Auto) 0.2 Lymph # (Auto) 1.0 L [place] # (Auto) 0.6 Eos # (Auto) 0.1 Baso # (Auto) 0.0 Abs Immat Gran (auto) 0.23 H Absolute Neuts (auto) 9.4 H Absolute Nucleated RBC 0.000 Nucleated RBC % (auto) 0.0 PT 10.2 L D INR 0.8 L D-Dimer High Sensitivty 1651 VBG pH 7.45 H VBG pCO2 44 VBG pO2 51 VBG HCO3 31 H VBG O2 Saturation 79.0 VBG Base Excess 7.2 Anion Gap 12 Estim Creat Clear Calc 37.7 Estimated GFR 57 Random Glucose 88 Calcium 8.7 B-Natriuretic Peptide Cancelled Cancelled Influenza Type A (PCR) Influenza Type B (PCR) RSV RNA Qual (PCR) SARS-CoV-2 RNA (RT-PCR) 02/10/23 16:38 MCV MCH MCHC RDW Plt Count MPV Immature Gran % (Auto) Neut % (Auto) Lymph % (Auto) [place] % (Auto) Eos % (Auto) Baso % (Auto) Lymph # (Auto) [place] # (Auto) Eos # (Auto) Baso # (Auto) Abs Immat Gran (auto) Absolute Neuts (auto) Absolute Nucleated RBC Nucleated RBC % (auto) PT INR D-Dimer High Sensitivty VBG pH VBG pCO2 VBG pO2 VBG HCO3 VBG O2 Saturation VBG Base Excess Anion Gap Estim Creat Clear Calc Estimated GFR Random Glucose Calcium B-Natriuretic Peptide Influenza Type A (PCR) NEGATIVE Influenza Type B (PCR) NEGATIVE RSV RNA Qual (PCR) NEGATIVE SARS-CoV-2 RNA (RT-PCR) NEGATIVE Imaging Radiologist's Impressions: Impressions Chest CTA 02/10/23 14:10 IMPRESSION: 1. No evidence for pulmonary emboli. 2. Left suprahilar soft tissue mass is again seen not significantly changed from the recent prior study. VTE: Negative. Assessment and Plan (1) Acute hypoxic respiratory failure: Status: Acute (2) Acute exacerbation of chronic obstructive pulmonary disease: Status: Inactive Plan Pt is an 78-year-old female with a PMH significant for?end-stage COPD, multiple PEs, hx of breast cancer, hx of lung cancer with two separate resections in right upper lobe (2019) and left upper lobe (2019), and osteoarthritis who presents to the ED with?worsening shortness of breath x2 days. Pt will be admitted to the hospital for treatment and further evaluation of acute hypoxic respiratory failure in the setting of acute COPD exacerbation. Acute hypoxic respiratory failure in the setting of COPD exacerbation Patient with sudden onset severe SOB, dyspnea since yesterday, satting at 88% on RA CTA of chest negative for pulmonary embolism Patient does not meet sepsis criteria: HR>90, but no tachypnea, leukocytosis, or fever Will treat with DuoNebs, Solu-Medrol, doxycycline 100 mg p.o. b.i.d. x5 days, started 02/10/2023 Titrate supplemental O2 >92, wean as tolerated Continue home maintenance inhalers Hold home prednisone, azithromycin Monitor respiratory status Pulmonary nodule Chest CTA on 01/31/2023 found enlarging left suprahilar mass Should follow up outpatient with pulmonology for possible biopsy Hx of PE Continue warfarin Anxiety Continue Ativan prn Osteoporosis of bilateral shoulders Continued oxycodone Full Code Attending:?Dr. Cronin DVT Prophylaxis: On warfarin Pt will require a hospitalization of at least two nights for treatment of? with . Quality Stroke Does the patient have a stroke diagnosis?: No VTE Prior VTE?: No VTE Risk Level:: Medical - moderate - high VTE Device Contraindication: Treatment Not Indicated VTE Drug Contraindication: N/A - Med Ordered
--- NOTE | 2023-02-10 18:05 | PHA.MEDREC ---
Pharmacy Consult ? Medication Reconciliation Pharmacy has completed the medication reconciliation. Patient states they take both nebulizers on a Q4H alternating basis and takes warfarin 3mg for 4 days, and 1.5mg for 3 days.
--- NOTE | 2023-02-10 18:22 | PC.NURSE ---
Patient sleeping at this time, respirations even and unlabored, no apparent distress at this time. Awaiting admit orders at this time
--- NOTE | 2023-02-10 19:26 | PC.NURSE ---
assumed care of patient at this time; pt is sleeping in bed; resps are even and unlabored. appears to be in no apparent distress. bed is in lowest position. side rails up. brakes on. call diaz in place. will continue to monitor.
[2023-02-10] MEDS: oxyCODONE HCl Immed Release 5 MG TABLET 10 MG PO (19:56)
[2023-02-10] MEDS: Albuterol/Iprat 2.5/0.5MG 3 ML AMPUL.NEB INHALE (19:59)
[2023-02-10] MEDS: Warfarin Sodium 3 MG TABLET PO (20:36)
[2023-02-10] MEDS: Doxycycline Monohydrate 100 MG CAPSULE PO (20:36)
--- NOTE | 2023-02-10 21:06 | PC.NURSE ---
report called to nurse on S3
[2023-02-10] MEDS: 0.9 % Sodium Chloride Flush 3 ML SYRINGE IVFLUSH (23:28)
[2023-02-11] VITALS (9 sets, daily range): BP systolic 128–167; BP diastolic 70–94; PULSE 69–85; RESP 14–24; TEMP 36.2–36.8; O2SAT 95–99
[2023-02-11] MEDS: methylPREDNISolone Sod Succ 40 MG/ML VIAL IVPUSH ×2 (01:36→13:01)
[2023-02-11] MEDS: Albuterol/Iprat 2.5/0.5MG 3 ML AMPUL.NEB INHALE ×5 (04:07→19:31)
[2023-02-11 06:20] LABS: INTERNATIONAL NORM RATIO 0.8 (0.9-1.1); Prothrombin Time 10.2 SEC (11.1-13.3)
--- NOTE | 2023-02-11 09:26 | MHC.CM.PN ---
PT REPORTS SHE LIVES WITH HER SON AND IS INDEPENDENT WITH SELF CARE SHE SAYS SHE IS ACTIVE WITH [facility] AND HAS NO OTHER SERVICES PT REPORTS SHE HAS HOME O2 AND A NEBULIZER, SHE USES BOTH PRN HCP ON FILE PCP: ROSEM[facility] IMM DELIVERED DCP: HOME, RESUME [facility] TO TRANSPORT
[2023-02-11] MEDS: Enoxaparin Sodium 40 MG/0.4 ML SYRINGE SUBCUT (09:44)
[2023-02-11] MEDS: Warfarin Sodium 2.5 MG TABLET PO (09:44)
[2023-02-11] MEDS: Doxycycline Monohydrate 100 MG CAPSULE PO ×2 (09:44→21:00)
[2023-02-11] MEDS: Cholecalciferol (Vitamin D3) 25 MCG TABLET 50 MCG PO (09:44)
[2023-02-11] MEDS: guaiFENesin LA 600 MG TAB.ER.12H 1200 MG PO ×2 (09:45→21:00)
[2023-02-11] MEDS: 0.9 % Sodium Chloride Flush 3 ML SYRINGE IVFLUSH ×3 (09:45→19:12)
[2023-02-11] MEDS: oxyCODONE HCl Immed Release 5 MG TABLET 10 MG PO ×2 (09:47→15:47)
[2023-02-11] MEDS: guaiFENesin DM 200/20/10 ML 10 ML SYRUP PO ×2 (09:47→14:16)
--- NOTE | 2023-02-11 11:26 | P.PNIM_ITS ---
Subjective Subjective Date of Service: 02/11/23 Interval History: Seen and evaluated this morning difficulties breathing and wheezing no fever or chills on O2 supplement Review of Systems Review of Systems: Yes all other systems are reviewed and are negative Physical Exam 2 Vital Signs: Vital Signs: Last Vital Signs Temp 97.2 F 02/11/23 07:35 Pulse 85 02/11/23 08:16 Resp 16 02/11/23 08:16 BP 138/78 02/11/23 07:35 Pulse Ox 98 02/11/23 07:35 O2 Del Method Nasal Cannula 02/11/23 07:35 O2 Flow Rate 2 02/11/23 07:35 Oxygen Flow Rate 2 02/10/23 12:15 BMI result Body Mass Index 21.6 Const: Other: Constitutional : Awake, interactive, not in distress Neck : Normal inspection, Supple Cardiovascular : RRR, no JVP, no lower extremity edema Respiratory : expiratory wheezes with decrease air entry bilaterally Gastrointestinal: soft, lax, Normal bowel sounds, Non tender Skin : Warm, Dry Neurological : Alert & oriented x3, No focal deficit Objective Data Active Medications Acetaminophen (Acetaminophen 325 Mg Tablet) 650 mg PO Q6H PRN PRN Reason: Pain, Mild (Pain Scale 1-3) Albuterol Sulfate (Albuterol Sulfate 90 Mcg 8 Gm Inhaler) 2 puff INHALE Q6H PRN PRN Reason: Shortness Of Breath Or Wheezing Albuterol/Ipratropium (Albuterol/Iprat 2.5/0.5mg 3 Ml Ampul.Neb) 3 ml INHALE RQ4H WHILE AWAKE [facility] Last Admin: 02/11/23 08:15 Dose: 3 ml Documented By: TARIQ Docusate Sodium (Docusate Sodium 100 Mg Capsule) 100 mg PO DAILY PRN PRN Reason: Constipation Doxycycline Monohydrate (Doxycycline Monohydrate 100 Mg Capsule) 100 mg PO Q12H [facility] Stop: 02/15/23 20:59 Last Admin: 02/11/23 09:44 Dose: 100 mg Documented By: HEIKE Enoxaparin Sodium (Enoxaparin Sodium 40 Mg/0.4 Ml Syringe) 40 mg SUBCUT Q24H [facility] Last Admin: 02/11/23 09:44 Dose: 40 mg Documented By: HEIKE Guaifenesin (Guaifenesin La 600 Mg Tab.Er.12h) 1,200 mg PO BID [facility] Last Admin: 02/11/23 09:45 Dose: 1,200 mg Documented By: COTEMA Guaifenesin/Dextromethorphan (Guaifenesin Dm 200/20/10 Ml 10 Ml Syrup) 10 ml PO Q4H PRN PRN Reason: Cough Last Admin: 02/11/23 09:47 Dose: 10 ml Documented By: COTEMA Lorazepam (Lorazepam 0.5 Mg Tablet) 0.5 mg PO TID PRN PRN Reason: anxiety Melatonin (Melatonin 3 Mg Tablet) 6 mg PO BEDTIME PRN PRN Reason: Insomnia Methylprednisolone Sodium Succinate (Methylprednisolone Sod Succ 40 Mg/Ml Vial) 40 mg IVPUSH Q12H [facility] Last Admin: 02/11/23 01:36 EDT Dose: 40 mg Documented By: KAVITA Non-Formulary Medication (Formoterol Fumarate [Perforomist]) 20 mcg INHALE BID@0900,1700 [facility] Ondansetron HCl (Ondansetron Hcl 4 Mg/2 Ml Vial) 4 mg IVPUSH Q8H PRN PRN Reason: Nausea and Vomiting Oxycodone HCl (Oxycodone Hcl Immed Release 5 Mg Tablet) 10 mg PO Q6H PRN PRN Reason: Moderate Pain (Scale Score 5-6) Last Admin: 02/11/23 09:47 Dose: 10 mg Documented By: TJEMA Sodium Chloride (0.9 % Sodium Chloride Flush 3 Ml Syringe) 3 ml IVFLUSH QSHIFT [facility] Last Admin: 02/11/23 09:45 Dose: 3 ml Documented By: HEIKE Vitamin D (Cholecalciferol (Vitamin D3) 25 Mcg Tablet) 50 mcg PO DAILY [facility] Last Admin: 02/11/23 09:44 Dose: 50 mcg Documented By: COTEMA Warfarin Sodium (Warfarin Sodium 0.5 Mg Halftab) 1.5 mg PO MOWEFR@1800 [facility] Warfarin Sodium (Warfarin Sodium 3 Mg Tablet) 3 mg PO SUTUTHSA@1800 [facility] Last Admin: 02/10/23 20:36 Dose: 3 mg Documented By: COURNOS Labs 02/10/23 12:52 02/10/23 12:52 Labs: Laboratory Results - last 24 hr 02/10/23 02/10/23 02/10/23 12:52 12:52 12:59 MCV 95.1 MCH 30.2 MCHC 31.8 RDW 16.0 Plt Count 228 MPV 10.0 Immature Gran % (Auto) 2.0 H Neut % (Auto) 82.5 H Lymph % (Auto) 9.1 L [place] % (Auto) 5.4 Eos % (Auto) 0.8 Baso % (Auto) 0.2 Lymph # (Auto) 1.0 L [place] # (Auto) 0.6 Eos # (Auto) 0.1 Baso # (Auto) 0.0 Abs Immat Gran (auto) 0.23 H Absolute Neuts (auto) 9.4 H Absolute Nucleated RBC 0.000 Nucleated RBC % (auto) 0.0 PT 10.2 L D INR 0.8 L D-Dimer High Sensitivty 1651 VBG pH 7.45 H VBG pCO2 44 VBG pO2 51 VBG HCO3 31 H VBG O2 Saturation 79.0 VBG Base Excess 7.2 Anion Gap 12 Estim Creat Clear Calc 37.7 Estimated GFR 57 Random Glucose 88 Calcium 8.7 B-Natriuretic Peptide Cancelled Cancelled Influenza Type A (PCR) Influenza Type B (PCR) RSV RNA Qual (PCR) SARS-CoV-2 RNA (RT-PCR) 02/10/23 02/11/23 16:38 05:54 MCV MCH MCHC RDW Plt Count MPV Immature Gran % (Auto) Neut % (Auto) Lymph % (Auto) [place] % (Auto) Eos % (Auto) Baso % (Auto) Lymph # (Auto) [place] # (Auto) Eos # (Auto) Baso # (Auto) Abs Immat Gran (auto) Absolute Neuts (auto) Absolute Nucleated RBC Nucleated RBC % (auto) PT 10.2 L INR 0.8 L D-Dimer High Sensitivty VBG pH VBG pCO2 VBG pO2 VBG HCO3 VBG O2 Saturation VBG Base Excess Anion Gap Estim Creat Clear Calc Estimated GFR Random Glucose Calcium B-Natriuretic Peptide Influenza Type A (PCR) NEGATIVE Influenza Type B (PCR) NEGATIVE RSV RNA Qual (PCR) NEGATIVE SARS-CoV-2 RNA (RT-PCR) NEGATIVE Assessment and Plan (1) Acute hypoxic respiratory failure: Status: Acute (2) Shortness of breath: Status: Acute (3) COPD (chronic obstructive pulmonary disease): Status: Acute Plan Pt is an 78-year-old female with a PMH significant for?end-stage COPD, multiple PEs, hx of breast cancer, hx of lung cancer with two separate resections in right upper lobe (2019) and left upper lobe (2019), and osteoarthritis who presents to the ED with?worsening shortness of breath x2 days. Pt will be admitted to the hospital for treatment and further evaluation of acute hypoxic respiratory failure in the setting of acute COPD exacerbation. Acute hypoxic respiratory failure in the setting of COPD exacerbation CTA of chest negative for PE Jose Solu-Medrol, doxycycline 100 mg p.o. b.i.d. x5 days, started 02/10/2023 Titrate supplemental O2 >92, wean as tolerated Continue home maintenance inhalers Hold home prednisone, azithromycin Monitor respiratory status Pulmonary nodule Chest CTA on 01/31/2023 found enlarging left suprahilar mass Should follow up outpatient with pulmonology for possible biopsy Hx of PE Continue warfarin Anxiety Continue Ativan prn Osteoporosis of bilateral shoulders Continued oxycodone Full Code DVT Prophylaxis: On warfarin, Lovenox Pt will require a hospitalization overnight for treatment of? with COPD exacerbation Quality Stroke Does the patient have a stroke diagnosis?: No VTE Prior VTE?: No VTE Risk Level:: Medical - moderate - high VTE Device Contraindication: Treatment Not Indicated VTE Drug Contraindication: N/A - Med Ordered
[2023-02-11] MEDS: LORazepam 0.5 MG TABLET PO (14:16)
[2023-02-11] MEDS: Warfarin Sodium 3 MG TABLET PO (18:04)
[2023-02-12] VITALS (8 sets, daily range): BP systolic 124–173; BP diastolic 67–80; PULSE 65–84; RESP 17–20; TEMP 36.3–37; O2SAT 97–99
[2023-02-12] MEDS: methylPREDNISolone Sod Succ 40 MG/ML VIAL IVPUSH ×2 (01:28→14:07)
[2023-02-12] MEDS: LORazepam 0.5 MG TABLET PO ×2 (05:10→14:58)
[2023-02-12] MEDS: Albuterol/Iprat 2.5/0.5MG 3 ML AMPUL.NEB INHALE ×4 (05:15→19:15)
[2023-02-12 06:22] LABS: Hematocrit 36.1 % (37.0-47.0); Hemoglobin 11.2 g/dl (12.0-16.0); Mean Corpuscular Volume 96.8 fL (80.0-98.0); Mean Platelet Volume 10.5 fL (9.4-12.3); Platelet Count 215 X10*3/uL (160-400); Red Blood Count 3.73 X10*6/uL (4.20-5.50); Red Cell Distribution Width 15.6 % (11.0-16.0); White Blood Count 15.3 X10*3/uL (4.8-10.8)
[2023-02-12 06:34] LABS: Anion Gap 15 (12-20); Blood Urea Nitrogen 28 mg/dL (9-16); Calcium 8.7 mg/dL (8.4-10.2); Carbon Dioxide 27 mmol/L (22-29); Chloride 104 mmol/L (96-108); Creatinine Clr Calc Pharmacy 35.4; Estimated Glomerular Filt Rate 53; Glucose Random 124 mg/dL (60-115); Sodium 141 mmol/L (135-145)
[2023-02-12 07:06] LABS: INTERNATIONAL NORM RATIO 1.2 (0.9-1.1); Prothrombin Time 14.6 SEC (11.1-13.3)
[2023-02-12] MEDS: oxyCODONE HCl Immed Release 5 MG TABLET 10 MG PO ×2 (08:38→17:41)
[2023-02-12] MEDS: Cholecalciferol (Vitamin D3) 25 MCG TABLET 50 MCG PO (08:38)
[2023-02-12] MEDS: Enoxaparin Sodium 40 MG/0.4 ML SYRINGE SUBCUT (08:38)
[2023-02-12] MEDS: guaiFENesin LA 600 MG TAB.ER.12H 1200 MG PO ×2 (08:39→20:03)
[2023-02-12] MEDS: Doxycycline Monohydrate 100 MG CAPSULE PO ×2 (08:39→20:04)
[2023-02-12] MEDS: 0.9 % Sodium Chloride Flush 3 ML SYRINGE IVFLUSH ×3 (08:42→20:08)
--- NOTE | 2023-02-12 10:51 | P.PNIM_ITS ---
Subjective Subjective Date of Service: 02/12/23 Interval History: Complaining of chest congestion and cough unable to bring up phlegm, denies fever, no chills use 2-3 L of oxygen as needed on home, tolerating diet no nausea no vomiting no abdominal pain no other acute issues overnight. Review of Systems All other system reviewed and negative Physical Exam 2 Vital Signs: Vital Signs: Last Vital Signs Temp 98 F 02/12/23 07:20 Pulse 82 02/12/23 07:20 Resp 18 02/12/23 07:20 BP 173/80 H 02/12/23 07:20 Pulse Ox 99 02/12/23 07:20 O2 Del Method Nasal Cannula 02/12/23 07:20 O2 Flow Rate 2 02/12/23 07:20 Oxygen Flow Rate 2 02/10/23 12:15 BMI result Body Mass Index 21.6 Const: Other: General: Alert oriented x3, no acute distress Anicteric sclera Neck no JVD Resp: Clear to auscultation no wheeze, no rhonchi prolonged expiratory phase CVS: S1,S2,RRR GI: +BS, NT, no distention Skin: No rash Neuro: motor grossly intact Psych: appropriate affect Objective Data Active Medications Acetaminophen (Acetaminophen 325 Mg Tablet) 650 mg PO Q6H PRN PRN Reason: Pain, Mild (Pain Scale 1-3) Albuterol Sulfate (Albuterol Sulfate 90 Mcg 8 Gm Inhaler) 2 puff INHALE Q6H PRN PRN Reason: Shortness Of Breath Or Wheezing Albuterol/Ipratropium (Albuterol/Iprat 2.5/0.5mg 3 Ml Ampul.Neb) 3 ml INHALE RQ4H WHILE AWAKE [facility] Last Admin: 02/12/23 05:15 Dose: 3 ml Documented By: ELIZABETH Docusate Sodium (Docusate Sodium 100 Mg Capsule) 100 mg PO DAILY PRN PRN Reason: Constipation Doxycycline Monohydrate (Doxycycline Monohydrate 100 Mg Capsule) 100 mg PO Q12H [facility] Stop: 02/15/23 20:59 Last Admin: 02/12/23 08:39 Dose: 100 mg Documented By: CHRISTOPHER Enoxaparin Sodium (Enoxaparin Sodium 40 Mg/0.4 Ml Syringe) 40 mg SUBCUT Q24H [facility] Last Admin: 02/12/23 08:38 Dose: 40 mg Documented By: CHRISTOPHER Guaifenesin (Guaifenesin La 600 Mg Tab.Er.12h) 1,200 mg PO BID [facility] Last Admin: 02/12/23 08:39 Dose: 1,200 mg Documented By: CHRISTOPHER Guaifenesin/Dextromethorphan (Guaifenesin Dm 200/20/10 Ml 10 Ml Syrup) 10 ml PO Q4H PRN PRN Reason: Cough Last Admin: 02/11/23 14:16 Dose: 10 ml Documented By: COTSUSHILA Lorazepam (Lorazepam 0.5 Mg Tablet) 0.5 mg PO TID PRN PRN Reason: anxiety Last Admin: 02/12/23 05:10 Dose: 0.5 mg Documented By: MARICRUZ Melatonin (Melatonin 3 Mg Tablet) 6 mg PO BEDTIME PRN PRN Reason: Insomnia Methylprednisolone Sodium Succinate (Methylprednisolone Sod Succ 40 Mg/Ml Vial) 40 mg IVPUSH Q12H [facility] Last Admin: 02/12/23 01:28 Dose: 40 mg Documented By: MARICRUZ Non-Formulary Medication (Formoterol Fumarate [Perforomist]) 20 mcg INHALE BID@0900,1700 [facility] Ondansetron HCl (Ondansetron Hcl 4 Mg/2 Ml Vial) 4 mg IVPUSH Q8H PRN PRN Reason: Nausea and Vomiting Oxycodone HCl (Oxycodone Hcl Immed Release 5 Mg Tablet) 10 mg PO Q6H PRN PRN Reason: Moderate Pain (Scale Score 5-6) Last Admin: 02/12/23 08:38 Dose: 10 mg Documented By: CHRISTOPHER Sodium Chloride (0.9 % Sodium Chloride Flush 3 Ml Syringe) 3 ml IVFLUSH QSHIFT [facility] Last Admin: 02/12/23 08:42 Dose: 3 ml Documented By: CHRISTOPHER Vitamin D (Cholecalciferol (Vitamin D3) 25 Mcg Tablet) 50 mcg PO DAILY [facility] Last Admin: 02/12/23 08:38 Dose: 50 mcg Documented By: CHRISTOPHER Warfarin Sodium (Warfarin Sodium 0.5 Mg Halftab) 1.5 mg PO MOWEFR@1800 [facility] Warfarin Sodium (Warfarin Sodium 3 Mg Tablet) 3 mg PO SUTUTHSA@1800 [facility] Last Admin: 02/11/23 18:04 Dose: 3 mg Documented By: HEIKE Labs 02/12/23 06:13 02/12/23 06:13 Labs: Laboratory Results - last 24 hr 02/12/23 06:13 MCV 96.8 MCH 30.0 MCHC 31.0 RDW 15.6 Plt Count 215 MPV 10.5 Absolute Nucleated RBC 0.000 Nucleated RBC % (auto) 0.0 PT 14.6 H D INR 1.2 H Anion Gap 15 Estim Creat Clear Calc 35.4 Estimated GFR 53 Random Glucose 124 H Calcium 8.7 Assessment and Plan (1) Acute hypoxic respiratory failure: Status: Acute (2) Shortness of breath: Status: Acute (3) COPD (chronic obstructive pulmonary disease): Status: Acute Plan Pt is an 78-year-old female with a PMH significant for?end-stage COPD, multiple PEs, hx of breast cancer, hx of lung cancer with two separate resections in right upper lobe (2019) and left upper lobe (2019), and osteoarthritis who presents to the ED with?worsening shortness of breath x2 days. Pt will be admitted to the hospital for treatment and further evaluation of acute hypoxic respiratory failure in the setting of acute COPD exacerbation. Acute hypoxic respiratory failure in the setting of COPD exacerbation CTA of chest negative for PE Persistent chest congestion cough and shortness of breath Continue scheduled DuoNebs, Solu-Medrol, doxycycline 100 mg p.o. b.i.d. x5 days, started 02/10/2023, transition to by mouth prednisone, on maintenance dose of prednisone 20 mg at home Titrate supplemental O2 >92, wean as tolerated Will add flutter valve Continue home maintenance inhalers Hold home prednisone, azithromycin Monitor respiratory status Pulmonary nodule Chest CTA on 01/31/2023 found enlarging left suprahilar mass outpatient follow-up with pulmonology for possible biopsy Hx of PE Continue warfarin, subtherapeutic INR will give additional Coumadin 2.5 mg follow PT INR closely Anxiety Continue Ativan prn Osteoporosis of bilateral shoulders Continued oxycodone Full Code DVT Prophylaxis: On warfarin, Lovenox Pt will require continued inpatient hospitalization for treatment of?COPD exacerbation, subtherapeutic INR need close PT INR monitoring and dosage adjustment Quality Stroke Does the patient have a stroke diagnosis?: No VTE Prior VTE?: No VTE Risk Level:: Medical - moderate - high VTE Device Contraindication: Treatment Not Indicated VTE Drug Contraindication: N/A - Med Ordered
--- NOTE | 2023-02-12 12:20 | MHC.CM.PN ---
PER ROUNDS PT FROM HOME WHERE SHE WILL RETURN WHEN DC PT IS SOB NO ANTICAPATED DC DATE AT THIS TIME
--- NOTE | 2023-02-12 15:42 | HO.WOUND ---
Wound Consult: Initial 78yr old female admitted to [facility] on? No02/10/23 18:35 - See progress notes and H&P for detailed history. Pt follows with [facility] - at time of discharge recommend continued followup with outpt clinic. Right Lateral Ankle Etiology: Vascular wound Measurements:see charting for detailed measurements Wound Bed: desiccated yellow slough Drainage / Odor: None Edges: ? Well defined Carmina wound: ? pink red intact tissue difficult to observe given Triad / Zinc product in place - extremely tender to touch No Induration, No Fluctuance, and No Warmth Pain: Pain reported Goals of Treatment: ? Moist wound healing and autolytic debridement Recommendations: 1. Turn and Reposition every 2 hours and as needed for patient comfort consider use of wedges available in the storeroom. 2. Off Load all bony prominences with use of pillows, wedges and heel boots. 3. Monitor for incontinence and moisture control. 4. Provide adequate and supplemental nutrition. 5. Order or Continue low air loss mattress. 6. Right Lateral Lower Leg - Off Load Pressure - Cleanse with Saline, Pat dry. Apply Triad to periwound, pack wound bed with small piece of gauze impregnated with wound gel. Cover with Foam dressing or ABD PAd gauze wrap per pt preference. Change Daily.
[2023-02-12] MEDS: Warfarin Sodium 0.5 MG HALFTAB 1.5 MG PO (17:55)
[2023-02-12] MEDS: Warfarin Sodium 2.5 MG TABLET PO (17:56)
[2023-02-13] VITALS (10 sets, daily range): BP systolic 133–165; BP diastolic 71–87; PULSE 63–79; RESP 15–20; TEMP 36.3–37.3; O2SAT 2–99
[2023-02-13] MEDS: methylPREDNISolone Sod Succ 40 MG/ML VIAL IVPUSH ×2 (01:35→13:47)
[2023-02-13] MEDS: Albuterol/Iprat 2.5/0.5MG 3 ML AMPUL.NEB INHALE ×6 (01:51→23:27)
[2023-02-13] MEDS: LORazepam 0.5 MG TABLET PO ×3 (02:29→21:07)
[2023-02-13 06:20] LABS: INTERNATIONAL NORM RATIO 1.7 (0.9-1.1); Prothrombin Time 21.2 SEC (11.1-13.3)
[2023-02-13] MEDS: Cholecalciferol (Vitamin D3) 25 MCG TABLET 50 MCG PO (08:18)
[2023-02-13] MEDS: Doxycycline Monohydrate 100 MG CAPSULE PO ×2 (08:18→21:07)
[2023-02-13] MEDS: 0.9 % Sodium Chloride Flush 3 ML SYRINGE IVFLUSH ×2 (08:18→21:08)
[2023-02-13] MEDS: guaiFENesin LA 600 MG TAB.ER.12H 1200 MG PO ×2 (08:18→21:07)
[2023-02-13] MEDS: Enoxaparin Sodium 40 MG/0.4 ML SYRINGE SUBCUT (08:18)
[2023-02-13] MEDS: oxyCODONE HCl Immed Release 5 MG TABLET 10 MG PO ×3 (08:22→21:07)
--- NOTE | 2023-02-13 13:36 | HO.PM.IMPN ---
Subjective Subjective Date of Service: 02/13/23 Interval History: Complaining of persistent shortness of breath, chest congestion and cough unable to bring up phlegm using flutter valve, feels more short of breath today than yesterday denies fever chills, tolerating diet no nausea ,no vomiting ,no abdominal pain, no diarrhea. Review of Systems All other system reviewed and negative Physical Exam Vital Signs: Vital Signs: Last Vital Signs Temp 98.1 F 02/13/23 07:44 Pulse 76 02/13/23 12:29 Resp 15 02/13/23 12:29 BP 134/84 02/13/23 07:44 Pulse Ox 98 02/13/23 07:44 O2 Del Method Nasal Cannula 02/13/23 07:44 O2 Flow Rate 2.0 02/13/23 07:44 Oxygen Flow Rate 2 02/10/23 12:15 BMI result Body Mass Index 21.6 Const: Other: General: Alert oriented x3,coughing, in no acute distress Anicteric sclera Neck no JVD Resp: Clear to auscultation no wheeze, no rhonchi prolonged expiratory phase CVS: S1,S2,RRR GI: +BS, Nontender ,no distention Skin: No rash Neuro: motor grossly intact Psych: appropriate affect Objective Data Active Medications Acetaminophen (Acetaminophen 325 Mg Tablet) 650 mg PO Q6H PRN PRN Reason: Pain, Mild (Pain Scale 1-3) Albuterol Sulfate (Albuterol Sulfate 90 Mcg 8 Gm Inhaler) 2 puff INHALE Q6H PRN PRN Reason: Shortness Of Breath Or Wheezing Albuterol/Ipratropium (Albuterol/Iprat 2.5/0.5mg 3 Ml Ampul.Neb) 3 ml INHALE RQ4H WHILE AWAKE [facility] Last Admin: 02/13/23 12:26 Dose: 3 ml Documented By: CHASTITY Docusate Sodium (Docusate Sodium 100 Mg Capsule) 100 mg PO DAILY PRN PRN Reason: Constipation Doxycycline Monohydrate (Doxycycline Monohydrate 100 Mg Capsule) 100 mg PO Q12H [facility] Stop: 02/15/23 20:59 Last Admin: 02/13/23 08:18 Dose: 100 mg Documented By: BEATRIZ Enoxaparin Sodium (Enoxaparin Sodium 40 Mg/0.4 Ml Syringe) 40 mg SUBCUT Q24H [facility] Last Admin: 02/13/23 08:18 Dose: 40 mg Documented By: BEATRIZ Guaifenesin (Guaifenesin La 600 Mg Tab.Er.12h) 1,200 mg PO BID [facility] Last Admin: 02/13/23 08:18 Dose: 1,200 mg Documented By: BEATRIZ Guaifenesin/Dextromethorphan (Guaifenesin Dm 200/20/10 Ml 10 Ml Syrup) 10 ml PO Q4H PRN PRN Reason: Cough Last Admin: 02/11/23 14:16 Dose: 10 ml Documented By: COTEMA Lorazepam (Lorazepam 0.5 Mg Tablet) 0.5 mg PO TID PRN PRN Reason: anxiety Last Admin: 02/13/23 02:29 Dose: 0.5 mg Documented By: MARICRUZ Melatonin (Melatonin 3 Mg Tablet) 6 mg PO BEDTIME PRN PRN Reason: Insomnia Methylprednisolone Sodium Succinate (Methylprednisolone Sod Succ 40 Mg/Ml Vial) 40 mg IVPUSH Q12H [facility] Last Admin: 02/13/23 01:35 Dose: 40 mg Documented By: MARICRUZ Non-Formulary Medication (Formoterol Fumarate [Perforomist]) 20 mcg INHALE BID@0900,1700 [facility] Ondansetron HCl (Ondansetron Hcl 4 Mg/2 Ml Vial) 4 mg IVPUSH Q8H PRN PRN Reason: Nausea and Vomiting Oxycodone HCl (Oxycodone Hcl Immed Release 5 Mg Tablet) 10 mg PO Q6H PRN PRN Reason: Moderate Pain (Scale Score 5-6) Last Admin: 02/13/23 08:22 Dose: 10 mg Documented By: BEATRIZ Sodium Chloride (0.9 % Sodium Chloride Flush 3 Ml Syringe) 3 ml IVFLUSH QSHIFT [facility] Last Admin: 02/13/23 08:18 Dose: 3 ml Documented By: BEATRIZ Vitamin D (Cholecalciferol (Vitamin D3) 25 Mcg Tablet) 50 mcg PO DAILY [facility] Last Admin: 02/13/23 08:18 Dose: 50 mcg Documented By: BEATRIZ Warfarin Sodium (Warfarin Sodium 0.5 Mg Halftab) 1.5 mg PO MOWEFR@1800 [facility] Last Admin: 02/12/23 17:55 Dose: 1.5 mg Documented By: EDER Warfarin Sodium (Warfarin Sodium 3 Mg Tablet) 3 mg PO SUTUTHSA@1800 [facility] Last Admin: 02/11/23 18:04 Dose: 3 mg Documented By: HEIKE Warfarin Sodium (Warfarin Sodium 0.5 Mg Halftab) 1.5 mg PO ONCE@1800 [facility] Stop: 02/13/23 18:01 Labs 02/12/23 06:13 02/12/23 06:13 Labs: Laboratory Results - last 24 hr 02/13/23 02/13/23 05:40 06:07 Hold Purple Top SEE NOTE PT 21.2 H D INR 1.7 H Assessment and Plan (1) Acute hypoxic respiratory failure: Status: Acute (2) Shortness of breath: Status: Acute (3) COPD (chronic obstructive pulmonary disease): Status: Acute Plan Pt is an 78-year-old female with a PMH significant for?end-stage COPD, multiple PEs, hx of breast cancer, hx of lung cancer with two separate resections in right upper lobe (2019) and left upper lobe (2019), and osteoarthritis who presents to the ED with?worsening shortness of breath x2 days. Pt will be admitted to the hospital for treatment and further evaluation of acute hypoxic respiratory failure in the setting of acute COPD exacerbation. Acute hypoxic respiratory failure in the setting of COPD exacerbation CTA of chest negative for PE Persistent chest congestion cough and shortness of breath on scheduled DuoNebs, iv Solu-Medrol, doxycycline 100 mg p.o. b.i.d. x5 days, started 02/10/2023, will transition to by mouth prednisone, and gradually wean to maintenance dose of prednisone 20 mg at home Titrate supplemental O2 >92, wean as tolerated Encourage flutter valve, encourage out of bed to ambulation Continue home maintenance inhalers resume azithromycin upon dc Monitor respiratory status Pulmonary nodule Chest CTA on 01/31/2023 found enlarging left suprahilar mass outpatient follow-up with pulmonology for possible biopsy Hx of PE Continue warfarin, subtherapeutic INR will give additional Coumadin 1.5 mg, follow PT INR closely Anxiety Continue Ativan prn Osteoporosis of bilateral shoulders Continued oxycodone Full Code DVT Prophylaxis: On warfarin, Lovenox Pt will require continued inpatient hospitalization for treatment of?COPD exacerbation, subtherapeutic INR need close PT INR monitoring and dosage adjustment Quality Stroke Does the patient have a stroke diagnosis?: No VTE Prior VTE?: No VTE Risk Level:: Medical - moderate - high VTE Device Contraindication: Treatment Not Indicated VTE Drug Contraindication: N/A - Med Ordered
[2023-02-13] MEDS: Warfarin Sodium 3 MG TABLET PO (19:09)
[2023-02-13] MEDS: Warfarin Sodium 0.5 MG HALFTAB 1.5 MG PO (19:10)
[2023-02-14] MEDS: methylPREDNISolone Sod Succ 40 MG/ML VIAL IVPUSH (01:14)
[2023-02-14 04:00] VITALS: BP 135/84; PULSE 70; RESP 18; TEMP 36.3; O2SAT 96
[2023-02-14] MEDS: Albuterol/Iprat 2.5/0.5MG 3 ML AMPUL.NEB INHALE ×3 (06:23→15:41)
[2023-02-14 06:25] VITALS: PULSE 69; RESP 16; O2SAT 98
[2023-02-14] MEDS: oxyCODONE HCl Immed Release 5 MG TABLET 10 MG PO ×2 (06:26→13:26)
[2023-02-14 07:04] LABS: INTERNATIONAL NORM RATIO 2.1 (0.9-1.1); Prothrombin Time 25.8 SEC (11.1-13.3)
[2023-02-14 07:17] VITALS: BP 144/76; PULSE 71; RESP 18; TEMP 36.1; O2SAT 96
[2023-02-14] MEDS: 0.9 % Sodium Chloride Flush 3 ML SYRINGE IVFLUSH (07:58)
[2023-02-14] MEDS: Enoxaparin Sodium 40 MG/0.4 ML SYRINGE SUBCUT (08:00)
[2023-02-14] MEDS: Doxycycline Monohydrate 100 MG CAPSULE PO (08:00)
[2023-02-14] MEDS: Cholecalciferol (Vitamin D3) 25 MCG TABLET 50 MCG PO (08:00)
[2023-02-14] MEDS: guaiFENesin LA 600 MG TAB.ER.12H 1200 MG PO (08:00)
[2023-02-14] MEDS: LORazepam 0.5 MG TABLET PO (08:10)
[2023-02-14] MEDS: predniSONE 10 MG TABLET 30 MG PO (08:10)
--- NOTE | 2023-02-14 09:37 | HO.WOUND ---
Wound Consult: Follow up 78yr old female admitted to [facility] on? No02/10/23 18:35 - See progress notes and H&P for detailed history. Pt follows with [facility] - at time of discharge recommend continued followup with outpt clinic. Pt reports in the clinic and [facility] they were using Hydrophera Blue but no improvement noted according to the patient. The wound bed remains extremely dry and will benefit from moisture. Recommend moist wound healing with wound gel and continued treatment with outpt for further evaluation and treatment. 02/12/23 Assessment Right Lateral Ankle 02/14/23 Right Lateral Ankle - relatively unchanged Right Lateral Ankle Etiology: Vascular wound - Not pressure related wound Wound Bed: dry yellow slough Drainage / Odor: dired yellow melvin drainage on gauze stuck to wound bed Edges: ? Well defined Carmina wound: ? pink red intact tissue difficult to observe given Triad / Zinc product in place - extremely tender to touch No Induration, No Fluctuance, and No Warmth Pain: Significant Pain reported to touch Goals of Treatment: ? Moist wound healing and autolytic debridement No new recoomendations - Patient set for D/C to home today - recommend continue with [facility] for continued treatment - discussed with pt and she is aware. Recommendations: 1. Turn and Reposition every 2 hours and as needed for patient comfort consider use of wedges available in the storeroom. 2. Off Load all bony prominences with use of pillows, wedges and heel boots. 3. Monitor for incontinence and moisture control. 4. Provide adequate and supplemental nutrition. 5. Order or Continue low air loss mattress. 6. Right Lateral Lower Leg - Off Load Pressure - Cleanse with Saline, Pat dry. Apply Triad to periwound, pack wound bed with small piece of gauze impregnated with wound gel. Cover with Foam dressing or ABD PAd gauze wrap per pt preference. Change Daily.
[2023-02-14 11:47] VITALS: PULSE 71; RESP 18; O2SAT 97
--- NOTE | 2023-02-14 13:11 | P.DS_ITS ---
DS: Providers Provider Date of Service: 02/19/23 Date of admission: 02/10/23 18:35 Primary care physician: Angel Montiel MD Consults: 02/10/23 22:05 Consult to Wound Care Routine Reason for consultation: chronic ulcer right lower leg DS: Diagnosis Discharge Diagnosis (1) Acute hypoxic respiratory failure: Status: Acute (2) Shortness of breath: Status: Acute (3) COPD (chronic obstructive pulmonary disease): Status: Acute DS: Summary Hospital Course Hospital Course: History of presenting illness: Date of Service: 02/10/23 Attending physician on admission: Frida Sherman Chief Complaint: SOB, difficulty breathing Pt is an 78-year-old female with a PMH significant for?end-stage COPD, multiple PEs, hx of breast cancer, hx of lung cancer with two separate resections in right upper lobe (2019) and left upper lobe (2019), and osteoarthritis who presents to the ED with?worsening shortness of breath x2 days. Patient has a long and complex pulmonary history including severe COPD and history of lung cancer with two separate resections and right and left upper lobes. Patient has chronic shortness of breath and home O2 prn, though she states she rarely uses it. Patient last presented to the ED 10 days ago on 01/31/2023 for evaluation of hemoptysis. Patient was transferred to [place] where she underwent a procedure to ?clean it up?. Patient is unclear exactly what happened, but sounds like possible bronchoscopy. She was released from [place] on Sunday02/02/2023 and states she has not had any hemoptysis since. Patient's warfarin was held for 7 days and restarted today. She reports feeling ?okay? since discharge up until yesterday when she suddenly ?could not breathe? or ?catch my breath?. Had increasing SOB and dyspnea with the slightest movement. Symptoms worsened today and patient got scared, deciding to present to the ED for further evaluation. Has chronic cough which seems around baseline, but has been wet sounding but nonproductive. Patient states it feels like she is coughing up mucus that gets stuck in her throat and she is unable to cough anything up. Denies fever, chills, nausea, vomiting, abdominal pain. No chest pain/pressure, palpitations. Denies pleuritic inspiratory chest pain. No headache. In the ED patient was afebrile with heart rate as high as 92, slightly hypertensive at 170/99, and desatting to 88% on RA with movement. Labs were significant for leukocytosis of 11.4, H&H 11.7/36.8, initial troponin 31.5 with repeat flat at 32.2, D-dimer elevated at 1651. Electrolytes WNL. Renal function baseline. CTA of chest negative for pulmonary emboli, but redemonstrated left suprahilar soft tissue mass?not significantly changed from prior study 1 week ago. EKG demonstrated sinus rhythm with PVCs and nonspecific ST and T-wave abnormalities. Pt was treated with guaifenesin, Ativan, Solu- Medrol, and DuoNebs. Pt will be admitted to the hospital for treatment and further evaluation of acute hypoxic respiratory failure in the setting of acute COPD exacerbation. Hospital course 78-year-old female with a PMH significant for?end-stage COPD, multiple PEs, hx of breast cancer, hx of lung cancer with two separate resections in right upper lobe (2019) and left upper lobe (2019), and osteoarthritis who presents to the ED with?worsening shortness of breath x2 days. Pt will be admitted to the hospital for treatment and further evaluation of acute hypoxic respiratory failure in the setting of acute COPD exacerbation. Acute hypoxic respiratory failure in the setting of COPD exacerbation, admitted to medical floor treated with DuoNeb, IV Solu-Medrol , flutter valve and doxycycline patient slowly responded to above treatment, CTA of chest negative for PE, since patient seem to be at baseline, with chronic chest congestion and shortness of breath due to end-stage COPD she is being discharged home on tapering dose of steroids and cough medication she finished course of antibiotic recommend to continue home O2 at all times and have close outpatient follow-up with pulmonology Pulmonary nodule history of lung CA ,Chest CTA on 01/31/2023 found enlarging left suprahilar mass, outpatient follow-up with pulmonology for possible biopsy. Hx of PE Continue warfarin, inr 2.1 follow PT INR closely keep INR between 2-3 Anxiety Continue Ativan prn Osteoporosis of bilateral shoulders Continued oxycodone Time Attestation Discharge coordination time: Greater than 30 minutes Quality: Safe Use of Opioids Does Pt have an Active Cancer Diagnosis on the Problem List?: No Quality: Stroke Does the patient have a stroke diagnosis?: No Physical Exam Vital Signs: Vital Signs: Last Vital Signs Temp 97.0 F 02/14/23 07:17 Pulse 71 02/14/23 11:47 Resp 18 02/14/23 11:47 BP 144/76 H 02/14/23 07:17 Pulse Ox 96 02/14/23 07:17 O2 Del Method Nasal Cannula 02/14/23 07:17 O2 Flow Rate 2 02/14/23 07:17 Oxygen Flow Rate 2 02/10/23 12:15 BMI result Body Mass Index 21.6 Const: Other: General: Alert oriented x3, in no acute distress, mild shortness of breath with activity Anicteric sclera Neck no JVD Resp: Clear to auscultation no wheeze, no rhonchi prolonged expiratory phase CVS: S1,S2,RRR GI: +BS, Non tender ,no distention Skin: No rash Neuro: motor grossly intact Psych: appropriate affect DS: Data Data Completed and Pending Labs on day of discharge: Laboratory Results - last 24 hr 02/14/23 05:03 Hold Purple Top SEE NOTE PT 25.8 H D INR 2.1 H Discharge Plan Discharge Anticipated Discharge Date/Time: 02/14/23 13:00 Patient Disposition: Home Health Service Discharge Diagnosis: Acute on chronic hypoxic respiratory failure Acute COPD exacerbation Referrals: Johnny [facility] [Outside] - 1 Week Angel Montiel MD [Primary Care Provider] - 1 Week Discharge Medications: New prednisone 10 mg Tablet 30 mg PO DAILY Qty: 9 0RF dextromethorphan-guaifenesin 10-100 mg/5 mL Syrup 10 ml PO Q4H PRN (Reason: Cough) Qty: 237 0RF Continued lorazepam 0.5 mg tablet 0.5 mg PO TID PRN (Reason: anxiety) 30 Days Qty: 90 3RF azithromycin 250 mg tablet 250 mg PO Q OTHER DAY Qty: 45 2RF warfarin [Jantoven] 3 mg tablet 1.5 mg PO MOWEFR@1800 Protocol: Dose Management Condition: Sunday (Week One) Dose/Route: 3 mg Instruction: 1 x 3 mg tablet Condition: Sunday Dose/Route: 1.5 mg Instruction: 0.5 x 3 mg tablets Condition: Sunday Dose/Route: 3 mg Instruction: 1 x 3 mg tablet Condition: Sunday Dose/Route: 1.5 mg Instruction: 0.5 x 3 mg tablets Condition: Dose/Route: 3 mg Instruction: 1 x 3 mg tablet Condition: Sunday Dose/Route: 1.5 mg Instruction: 0.5 x 3 mg tablets Condition: Sunday Dose/Route: 3 mg Instruction: 1 x 3 mg tablet Condition: Sunday ( Two) Dose/Route: 3 mg Instruction: 1 x 3 mg tablet Condition: Sunday Dose/Route: 1.5 mg Instruction: 0.5 x 3 mg tablets Condition: Sunday Dose/Route: 3 mg Instruction: 1 x 3 mg tablet Condition: Sunday Dose/Route: 1.5 mg Instruction: 0.5 x 3 mg tablets Condition: Dose/Route: 3 mg Instruction: 1 x 3 mg tablet Condition: Sunday Dose/Route: 1.5 mg Instruction: 0.5 x 3 mg tablets Condition: Sunday Dose/Route: 3 mg Instruction: 1 x 3 mg tablet Protocol Text: Adjustment Start Date: 01/25/23 INR Value: 2.7 INR Date: 01/25/23 Recheck Date: 02/08/23 Additional Instructions: cont same dosing call with any changes in medications warfarin 3 mg Tablet 3 mg PO SUTUTHSA@1800 Protocol: Dose Management Condition: Sunday (Week One) Dose/Route: 3 mg Instruction: 1 x 3 mg tablet Condition: Sunday Dose/Route: 1.5 mg Instruction: 0.5 x 3 mg tablets Condition: Sunday Dose/Route: 3 mg Instruction: 1 x 3 mg tablet Condition: Sunday Dose/Route: 1.5 mg Instruction: 0.5 x 3 mg tablets Condition: Dose/Route: 3 mg Instruction: 1 x 3 mg tablet Condition: Sunday Dose/Route: 1.5 mg Instruction: 0.5 x 3 mg tablets Condition: Sunday Dose/Route: 3 mg Instruction: 1 x 3 mg tablet Condition: Sunday ( Two) Dose/Route: 3 mg Instruction: 1 x 3 mg tablet Condition: Sunday Dose/Route: 1.5 mg Instruction: 0.5 x 3 mg tablets Condition: Sunday Dose/Route: 3 mg Instruction: 1 x 3 mg tablet Condition: Sunday Dose/Route: 1.5 mg Instruction: 0.5 x 3 mg tablets Condition: Dose/Route: 3 mg Instruction: 1 x 3 mg tablet Condition: Sunday Dose/Route: 1.5 mg Instruction: 0.5 x 3 mg tablets Condition: Sunday Dose/Route: 3 mg Instruction: 1 x 3 mg tablet Protocol Text: Adjustment Start Date: 01/25/23 INR Value: 2.7 INR Date: 01/25/23 Recheck Date: 02/08/23 Additional Instructions: cont same dosing call with any changes in medications diclofenac sodium 1 % gel 2 g topical BID PRN (Reason: Pain) Rx Instructions: apply to shoulders ipratropium-albuterol 0.5 mg-3 mg(2.5 mg base)/3 mL solution for nebulization 3 ml inhalation BID@1300,2100 formoterol fumarate [Perforomist] 20 mcg/2 mL solution for nebulization 20 mcg inhalation BID@0900,1700 albuterol sulfate [Ventolin HFA] 90 mcg/actuation HFA aerosol inhaler 2 puff PO Q6H PRN (Reason: Shortness Of Breath Or Wheezing) cholecalciferol (vitamin D3) 50 mcg (2,000 unit) capsule 50 mcg PO DAILY oxycodone 10 mg tablet 10 mg PO Q6H PRN (Reason: Moderate Pain (Scale Score 5-6)) ciclopirox 0.77 % gel 1 appl topical DAILY Held prednisone 20 mg Tablet 20 mg PO DAILY Hold Instructions: Resume on 02/18/23. Discharge Orders: Discharge Order (Routine); Ordered 02/14/23 Ordered By: Luis Mccullough Diet: Advance to usual diet Activity on Discharge: As tolerated Stand Alone Forms: Patient Portal Discharge page Activity Restrictions/Additional Instructions: Recommend continue with [facility] for continued treatment - discussed with pt and she is aware. Recommendations: Right Lateral Lower Leg - Off Load Pressure - Cleanse with Saline, Pat dry. Apply Triad to periwound, pack wound bed with small piece of gauze impregnated with wound gel. Cover with Foam dressing or ABD PAd gauze wrap per pt preference. Change Daily. Care Plan Goals: Take prednisone 30 mg (3x10mg tabs) daily for 3 days then resume home dose of prednisone 20 mg daily on 02/18/23 Take cough medication as needed Use 2-3 L of oxygen at home all the time Health Concerns: End-stage COPD Plan of Treatment: Outpatient follow-up with primary care physician and pulmonology as previously planned Assessment: As above Discharge Date/Time: 02/14/23 16:13
--- NOTE | 2023-02-14 13:24 | MHC.CM.PN ---
IMM 02/14/23 Patient is discharged to home today with resumption of [facility]. [facility] met with patient. She is considering services for home making. Patients son will provide transport home. Patient lives with her son.
[2023-02-14 15:42] VITALS: PULSE 71; RESP 18; O2SAT 98
--- NOTE | 2023-02-15 07:23 | P.CDIM_ITS ---
PROVIDER RESPONSE TEXT: To clarify, the appropriate diagnosis supported by the clinical indicators: Venous stasis ulcer: unstageable QUERY TEXT: PHYSICIAN'S DOCUMENTATION REQUEST Date of Query: 02/14/2023 10:49 AM EST Patient Name: [facility] Nails Admit Date: 02/10/2023 Dear Luis Mccullough, A review of the medical record indicates additional documentation may be needed. Please review below and update the documentation accordingly. Clinical Indicators: Per Wound Note 02/14/23: Right lateral ankle vascular wound moist wound healing and autolytic debridement Based on the above, could you please provide further information regarding the type and depth of the ulcer/wound: Venous stasis ulcer Please specify the depth of the ulcer/wound Arterial (ischemic) ulcer Please specify the depth of the ulcer/wound Other (explain)Clinically unable to determine (explain)Thank you, Alicia Brady RN Use of terms such as suspected, likely, concern for, or probable (associated with a specific diagnosi s that is being evaluated, monitored, or treated as if it exists) are acceptable and can be coded in the inpatient se tting, when documented at the time of discharge. Please use your independent medical judgment in providing your response. THIS QUERY IS PART OF THE PERMANENT MEDICAL RECORD
== END 2023-02-14 16:13 | disposition home health service (06) | DRG 190 ==
LOC: HO.ED 15:29 → HO.EDOVER 19:16 → HO.S3 20:29
PROVIDERS: Nurse Practitioner Family; Physician Assistant Medical; Student in an Organized Health Care Education/Training Program; Admitting Provider Student in an Organized Health Care Education/Training Program; Emergency Provider Emergency Medicine; PCP Internal Medicine; Visit Provider Hospitalist
DX: J44.1 Chronic obstructive pulmonary disease with (acute) exacerbation (principal); J96.01 Acute respiratory failure with hypoxia; L97.319 Non-pressure chronic ulcer of right ankle with unspecified severity; F41.9 Anxiety disorder, unspecified; M81.0 Age-related osteoporosis without current pathological fracture; I87.8 Other specified disorders of veins; R91.1 Solitary pulmonary nodule; R79.1 Abnormal coagulation profile; Z20.822 Contact with and (suspected) exposure to COVID-19; Z87.891 Personal history of nicotine dependence; Z85.3 Personal history of malignant neoplasm of breast; Z86.711 Personal history of pulmonary embolism; Z85.118 Personal history of other malignant neoplasm of bronchus and lung; Z90.2 Acquired absence of lung [part of]; Z79.01 Long term (current) use of anticoagulants; Z79.52 Long term (current) use of systemic steroids; Z79.899 Other long term (current) drug therapy
CPT/HCPCS: 0241U; 36415; 71275; 80048; 82803; 83880; 84484; 85025; 85027; 85379; 85610; 93005; 94640; 99285; J1650; J2920; J2930; Q9967

== ENCOUNTER → 2023-02-10 18:35 | Outpatient (BNV) | payer MEDICARE, SELFPAY | PROVIDERS: Admitting Provider Student in an Organized Health Care Education/Training Program; Emergency Provider Emergency Medicine; PCP Internal Medicine; Visit Provider Student in an Organized Health Care Education/Training Program | DX: J96.01 Acute respiratory failure with hypoxia (principal); J44.1 Chronic obstructive pulmonary disease with (acute) exacerbation | CPT/HCPCS: 99223; 99232; 99239 ==

== ENCOUNTER 2023-03-20 15:00 | Inpatient (IN) | payer MEDICARE, SELFPAY ==
[2023-03-20] VITALS (9 sets, daily range): BP systolic 96–138; BP diastolic 50–79; PULSE 74–95; RESP 16–18; TEMP 36.4–38.5; O2SAT 93–99; BMI 19.1; BMI 18.9
--- NOTE | ~2023-03-20 | XR_ITS ---
EXAMINATION: PORTABLE CHEST 1 VIEW CLINICAL INFORMATION: weakness. COMPARISON: 01/31/2023. TECHNIQUE: Portable frontal view of the chest was obtained. FINDINGS: The lungs are well expanded. Chronic appearing reticular markings are again seen bilaterally. Chain staple line in the left lung apex again noted. No focal infiltrate, effusion, edema, or pneumothorax. Cardiac and mediastinal silhouettes are within normal limits for size for this rotated scoliotic technique. There are multiple healed bilateral rib fractures, distal left clavicle fracture, and significant degenerative changes in the shoulders.. No acute bony abnormality seen. XR/XR chest 1V IMPRESSION: Chronic appearing and postoperative changes but no acute superimposed airspace disease.
--- NOTE | ~2023-03-20 | CT_ITS ---
Examination: CT lower leg RT w IV con Indication: severe pain, swelling Comparison: Ultrasound earlier today Technique: Multiple sequential thin slice CT images through the right lower extremity were obtained. Soft tissue and bony algorithms utilized. Coronal and sagittal reformatted images were obtained on the technologist workstation This CT examination was performed using dose optimization techniques as appropriate, variously including the following: *Automated exposure control *Adjustment of mA and/or kV according to patient size (this includes techniques or standardized protocols for targeted exams where dose is matched to indication/reason for exam; i.e. extremities or head) *Use of iterative reconstruction technique DLP: 355 mGy cm Findings: Extensive vascular calcification within the arterial system. The degree of vascular calcification limits assessment for arterial patency. Prominent varicosities are seen in the superficial subcutaneous fat. Please see the prior ultrasound report for right popliteal vein DVT description. I do not appreciate any suspicious mass lesion or abnormal fluid collection. No radiopaque foreign body or soft tissue gas. No acute fracture or dislocation no bony destructive lesions. No obvious periosteal reaction. Degenerative changes in the visualized knee and ankle. CT/CT lower leg RT w IV con Impression: I do not appreciate any suspicious mass lesion or abnormal fluid collection. No acute bony abnormality seen. Extensive vascular calcification limits assessment for arterial patency. Prominent varicosities are seen in the superficial subcutaneous fat.
--- NOTE | ~2023-03-20 | US_ITS ---
EXAMINATION: US VENOUS ULTRASOUND WITH DOPPLER LOWER EXTREMITY, RIGHT CLINICAL INFORMATION: Lower extremity edema and pain COMPARISON: None available. TECHNIQUE: Ultrasound of the deep veins is performed from the hip to the calf with compression sonography and color and pulse Doppler assessment. Spectral analysis with color-flow imaging is performed. FINDINGS: There is nonobstructive thrombus present in the right popliteal vein. The exam is otherwise unremarkable with normal venous compression and respiratory variation and augmented flow elsewhere. The visualized common femoral vein, superficial femoral vein, profunda femoral vein, and the visualized posterior tibial vein. The peroneal vein was not seen. There is no significant popliteal fossa cyst. US/US venous duplex LE RT IMPRESSION: DVT demonstrated in the right popliteal vein.
--- NOTE | 2023-03-20 16:35 | ECG_ITS ---
Test Reason : SOB Blood Pressure : / mmHG Vent. Rate : 093 BPM Atrial Rate : 000 BPM P-R Int : 000 ms QRS Dur : 066 ms QT Int : 398 ms P-R-T Axes : 000 -27 122 degrees QTc Int : 494 ms Normal sinus rhythm with PACs Left ventricular hypertrophy with repolarization abnormality ( R in aVL ) Abnormal ECG When compared with ECG of 10-FEB-2023 12:46, No significant changes seen Referred By: Delfina Calderon Electronically Signed By:Philip Nagel
[2023-03-20 16:57] LABS: MANUAL DIFF FLAG NO
--- NOTE | 2023-03-20 16:58 | ED.EXTPRO ---
HPI - Extremity Problem General Chief complaint: Extremity Injury, Lower Stated complaint: R FOOT PAIN/SWELLING,AMS FROM HOME PER EMS Time Seen by Provider: 03/20/23 16:12 Source: patient and old records reviewed Mode of arrival: EMS Limitations: other (poor historian ) History of Present Illness HPI Narrative: 78 yo female from home who is a very poor historian - hx of COPD, PE on coumadin, s/p multiple lung resections, lung cancer, she was just admitted here 02/10 - 02/14 for COPD her coumadin was held back in January for hemoptysis she comes in today after noticing redness, swelling, severe pain to R leg near ankle and foot. She denies trauma. She can wiggle toes, she can feel foot and pulses are felt but the foot is very swollen and painful. She has chills. MD Complaint: extremity pain and extremity swelling Onset (ago): hour(s) (upon waking this AM) Pain Consistency: constant Location: right and lower extremity Quality: stabbing Relieving factors: rest Exacerbating factors: range of motion, weight bearing, walking and palpation Associated symptoms: other (swelling, chills) Context: immobilization and history of DVT Related Data Home Medications Medication Instructions Recorded Confirmed cholecalciferol (vitamin D3) 50 50 mcg PO DAILY 06/14/21 03/20/23 mcg (2,000 unit) capsule albuterol sulfate 90 mcg/actuation 2 puff PO Q6H PRN Shortness Of 07/23/22 03/20/23 aerosol inhaler (Ventolin HFA) Breath Or Wheezing oxycodone 10 mg tablet 10 mg PO BID PRN Moderate Pain 09/15/22 03/20/23 (Scale Score 5-6) formoterol fumarate 20 mcg/2 mL 20 mcg inhalation BID@0900,1700 02/10/23 03/20/23 solution for nebulization (Perforomist) ipratropium 0.5 mg-albuterol 3 mg 3 ml inhalation BID@1300,2100 for 02/10/23 03/20/23 (2.5 mg base)/3 mL nebulization wheezing soln prednisone 20 mg tablet 20 mg PO Q48H copd 03/20/23 03/20/23 warfarin 2 mg tablet 2 mg PO DAILY 03/20/23 03/20/23 Previous Rx's Medication Instructions Recorded lorazepam 0.5 mg tablet 0.5 mg PO TID PRN anxiety 30 days 11/01/22 #90 tabs azithromycin 250 mg tablet 250 mg PO Q OTHER DAY #45 tabs 03/09/23 Allergies Allergy/AdvReac Type Severity Reaction Status Date / Time No Known Allergies Allergy Verified 01/25/23 13:28 Review of Systems Review of Systems: Constitutional : No Fever, pos Chills ENT/Mouth : No sore throat, No Rhinorrhea Eyes: No Eye Pain, No Swelling, No Redness Cardiovascular : No Chest Pain, No SOB, pos edema Respiratory : No Cough, No Sputum Gastrointestinal : No Nausea, No Vomiting, No Diarrhea, No abdominal Pain Genitourinary : No Dysuria, No Hematuria Musculoskeletal : pos joint pain, No Myalgias, pos Joint Swelling Skin : No Skin Lesions, positive skin rash Neuro : No Weakness, No Numbness, No Headache Psych : No Anxiety, No Depression Heme/Lymph: No Bruising, No Bleeding,No Lymphadenopathy Endocrine : No Polyuria, No Polydipsia All other systems reviewed and are negative [facility] Past Medical History Source: old records reviewed Medical History Shortness of breath Respiratory failure with hypoxia Anxiety Tubular adenoma of colon (~2014) Cancer of upper lobe of left lung (~2020) Osteoporosis (~2018) History of pulmonary embolism (~2011) History of left breast cancer (~2008) Current use of anticoagulant therapy (~2011) Chronic bronchitis COPD (chronic obstructive pulmonary disease) Cancer of upper lobe of right lung (~2019) Closed intertrochanteric fracture with routine healing (~2019) Surgical History History of colonoscopy (~07/2014) History of tubal ligation History of lung surgery (~05/2020) History of tonsillectomy History of left breast biopsy (~03/2009) History of hip surgery (~11/2019) History of lumpectomy of left breast (~04/2009) History of appendectomy (~09/2012) History of lung surgery (~07/2019) Social History Social History Household Members: Children Housing: House Do you presently have visiting nurse or other home services: Yes (VNA's every other day) Alcohol intake: never Comment: rings appropriately Patient Tobacco Use Status: Former Tobacco user Quit Date: 1996 Years Smoked: 35pyh - quit 1997 Smoked in Last 30 Days: No Patient Interested in Nicotine Replacement: No Patient Given Instructions on How to Stop Smoking: No Second Hand Smoke Exposure: No Use of substances other than those prescribed or required for medical reasons: No Currently Displaying Signs/Symptoms of Drug Intoxication Withdrawal: No Have you been hit, kicked, punched, or otherwise hurt by someone within the past year? If so, by whom?: No Do you feel safe in your current relationship?: No Current Relationship Is there a partner from a previous relationship who is making you feel unsafe now?: No Are you made to feel afraid or neglected: No Advance Directives: Yes Advance Directives on File: Yes Advance Directives Date on File: 07/25/22 Do you have thoughts of harming others: None Do you have a plan to hurt others: No Plan Recently lost weight without trying: No How much weight loss: Not applicable Eating poorly because of decreased appetite: No Nutrition screen score: 0 Nutrition Risks: No Nutritional Risk Patient : No : No Poor oral hygiene: No service: No Current occupational status: disabled Physical Exam Vital Signs: Vital Signs: Last Vital Signs Temp 97.1 F 03/21/23 00:04 Pulse 85 03/21/23 00:04 Resp 18 03/21/23 00:04 BP 136/60 03/21/23 00:04 Pulse Ox 100 03/21/23 00:04 O2 Del Method Nasal Cannula 03/21/23 00:04 O2 Flow Rate 3 03/21/23 00:04 Oxygen Flow Rate 2 03/20/23 15:09 BMI result Body Mass Index 19.1 Appearance: Alert. Oriented X2. No acute distress. Eyes: Pupils equal, round and reactive to light. ENT: Pharynx normal. Neck: Normal inspection. Neck supple. CVS: Normal heart rate and rhythm. Pulses normal. Respiratory: No respiratory distress. Breath sounds diminished bilaterally Abdomen: Soft and nontender. Skin: Skin warm and dry. pale skin color. Normal skin turgor. Extremities: R leg hot to touch, pitting 2+ edema foot to mid akhtar, small ulcer without purulence or fluctuance noted to medial calf, she can wiggle toes, compartments are soft, SILT intact but reports pain throughout the leg and will not move the leg Neuro: Oriented X 2. No motor deficit. No sensory deficit. Medications Administered Generic Name Dose Route Start Last Admin Trade Name Freq PRN Reason Stop Dose Admin Cefazolin Sodium/Dextrose 2 gm in 50 mls @ 100 mls/hr 03/20/23 22:00 03/20/23 23:24 Ancef IV Infused Q12H ANJELICA Infusion Morphine Sulfate 2 mg 03/20/23 21:08 03/21/23 00:17 Morphine Sulfate 4 Mg/Ml Cartridge IVPUSH 2 mg Q4H PRN Administration Pain, Severe (Pain Scale 7-10) Protocol Oxycodone HCl 5 mg 03/20/23 21:08 03/20/23 21:53 Oxycodone Hcl Immed Release 5 Mg Tablet PO 5 mg Q6H PRN Administration Pain, Severe (Pain Scale 7-10) Sodium Chloride 3 ml 03/21/23 00:00 03/21/23 00:08 0.9 % Sodium Chloride Flush 3 Ml Syringe IVFLUSH Not Given QSHIFT ANJELICA Discontinued Medications Generic Name Dose Route Start Last Admin Trade Name Freq PRN Reason Stop Dose Admin Acetaminophen 650 mg 03/20/23 16:33 03/20/23 17:43 Acetaminophen 325 Mg Tablet PO 03/20/23 16:34 650 mg ONCE ONE Administration Albuterol Sulfate 2.5 mg/ 0 mg 03/20/23 18:02 03/20/23 18:06 Albuterol/Ipratropium 3 ml INHALE 03/20/23 18:03 5 dose ONCE ONE Administration Enoxaparin Sodium 50 mg 03/20/23 18:19 03/20/23 19:22 Enoxaparin Sodium 60 Mg/0.6 Ml Syringe 1 mg/kg (50 mg) 03/20/23 18:20 50 mg SUBCUT Administration ONCE ONE Piperacillin Sod/Tazobactam 50 mls @ 100 mls/hr 03/20/23 16:33 03/20/23 18:40 Sod 3.375 gm/ Sodium Chloride IV 03/20/23 17:02 Infused ONCE ONE Infusion Sodium Chloride 1,000 mls @ 999 mls/hr 03/20/23 16:45 03/20/23 23:09 Ns IV 03/20/23 17:45 Infused .Q1H1M ANJELICA Infusion Sodium Chloride 1,000 mls @ 999 mls/hr 03/20/23 20:00 03/21/23 01:26 Ns IV 03/20/23 21:00 Infused .Q1H1M ANJELICA Infusion Sodium Chloride 1,000 mls @ 250 mls/hr 03/20/23 21:30 03/21/23 01:20 Ns IVCONT 03/21/23 01:29 250 mls/hr .Q4H ANJELICA Administration Iohexol 85 ml 03/20/23 19:14 03/20/23 19:14 Iohexol 350 Mg/Ml 100 Ml Infus..Btl IV 03/20/23 19:15 85 ml ONCE ONE Administration Medical Decision Making Medical Decision Making MDM Narrative: 78 yo female from home who is a very poor historian - hx of COPD, PE on coumadin, s/p multiple lung resections, lung cancer, she was just admitted here 02/10 - 02/14 for COPD her coumadin was held back in January for hemoptysis at this time comes in with atraumatic R leg pain with signs of cellulitis she does have palpable and dopplerable pulse in the foot can wiggle toes compartments are soft - I feel no crepitus but her pain is out of proportion. Her exam is not consistent with compartment syndrome - I am ordered labs, cultures, DVT study but also CT scan for any signs of gas she is on coumadin and is high risk with reversing due to hx of multiple PE. IV zosyn is ordered. Differential Diagnosis Differential Diagnoses: The differential diagnosis associated with the presentation includes cellulitis, DVT, necrotizing infectio Admission/Observation Consideration of admission/observation: Escalation of care including admission/observation considered admit for further treatment Consult Healthcare Provider Management of the patient was discussed with: Hospitalist (will admit) and Aged Or Disabled Carer (spoke to Dr. Lin given clot she recommends switch to lovenox) Lab Data [facility] Lab Attestation statement: I reviewed the patient's lab results. 03/20/23 16:52 03/20/23 16:52 Labs: Lab Results 03/20/23 03/20/23 03/20/23 Range/Units 16:52 19:41 19:46 WBC 17.9 H (4.8-10.8) X10*3/uL RBC 4.04 L (4.20-5.50) X10*6/uL Hgb 12.1 (12.0-16.0) g/dl Hct 39.0 (37.0-47.0) % MCV 96.5 (80.0-98.0) fL MCH 30.0 (27.0-33.0) pg MCHC 31.0 (31.0-35.0) g/dl RDW 15.8 (11.0-16.0) % Plt Count 237 (160-400) X10*3/uL MPV 11.0 (9.4-12.3) fL Immature Gran % (Auto) 1.1 H (0.0-0.4) % Neut % (Auto) 87.4 H (45-73) % Lymph % (Auto) 3.6 L (20-40) % [place] % (Auto) 7.6 (2-11) % Eos % (Auto) 0.1 (0-4) % Baso % (Auto) 0.2 (0-2) % Lymph # (Auto) 0.6 L (1.2-4.9) X10*3/uL [place] # (Auto) 1.4 H (0.1-1.2) X10*3/uL Eos # (Auto) 0.0 (0.0-0.4) X10*3/uL Baso # (Auto) 0.0 (0.0-0.2) X10*3/uL Abs Immat Gran (auto) 0.19 H (0.00-0.03) X10*3/uL Absolute Neuts (auto) 15.7 H (2.0-8.3) x10*3/uL Absolute Nucleated RBC 0.000 (0.0-0.012) X10*3/uL Nucleated RBC % (auto) 0.0 (0.0-0.2) /100WBC PT 36.6 H D (11.1-13.3) SEC INR 3.0 H (0.9-1.1) Sodium 139 (135-145) mmol/L Potassium 4.0 (3.3-5.1) mmol/L Chloride 105 (96-108) mmol/L Carbon Dioxide 22 (22-29) mmol/L Anion Gap 16 (12-20) BUN 21 H (9-16) mg/dL Creatinine 0.87 (0.5-1.4) mg/dL Estim Creat Clear Calc 42.3 Estimated GFR > 60 Random Glucose 63 (60-115) mg/dL Lactic Acid 1.1 (0.5-2.0) mmol/L Calcium 9.2 (8.4-10.2) mg/dL Magnesium 1.7 (1.6-2.6) mg/dL Total Bilirubin 1.6 H (0.0-1.0) mg/dL Direct Bilirubin 0.5 (0.0-0.5) mg/dL AST 16 (5-31) U/L ALT 7 (0-31) U/L Alkaline Phosphatase 52 (39-117) U/L Total Creatine Kinase 20 L (26-140) U/L Troponin I High Sens 24.5 H (<3.5-17.0) ng/L B-Natriuretic Peptide 95 (<100) pg/mL Total Protein 5.6 L (6.5-8.0) g/dL Albumin 3.0 L (3.5-5.0) g/dL Procalcitonin 2.14 ng/mL Urine Color Yellow Urine Appearance Cloudy Urine pH 5.5 (5.0-9.0) Ur Specific [place] 1.015 (1.005-1.025) Urine Protein 100 (2+) H (Neg-Trace) mg/dL Urine Glucose (UA) Negative (Negative) mg/dL Urine Ketones 15 (Negative) mg/dL Urine Blood Large (3+) H (Negative) Urine Nitrite Negative (Negative) Ur Leukocyte Esterase Moderate (2+) H (Negative) Urine RBC >20 H (0-2) /HPF Urine WBC 21-50 H (0-5) /HPF Ur Squamous Epith Cells 11-20 (0-2) /HPF Urine Bacteria 1+ (None Seen) Hyaline Casts 0-2 (0-2) /LPF Influenza Type A (PCR) NEGATIVE (Negative) Influenza Type B (PCR) NEGATIVE (Negative) RSV RNA Qual (PCR) NEGATIVE (Negative) SARS-CoV-2 RNA (RT-PCR) NEGATIVE (Negative) Blood Type O Positive Antibody Screen NEGATIVE Independent Interpretation I performed an independent interpretation of an: EKG, Plain X-Ray, Ultrasound (+ DVT R pop fossa) and CT Scan Interpretation: Rate: 93 Rhythm: irregular [place]:left, LVH. Normal QRS complex. ST T wave : inverted t wave V3-V6. qTC: normal prior studies: no sig change though it is irregular unsure if p waves noted given artifact The study has been interpreted contemporaneously by me. . Radiology Impression Discussion of test interpretation with radiology: I have reviewed the radiologist's reading. External Record Review External record reviewed: Inpatient record Critical Care Time Critical Care Time Critical Care Time: Yes Total Critical Care Time: 45 Attestation: medical consults, review of records, management of leg infection I attest to this time spent taking care of the patient Discharge Plan Discharge Clinical Impression: Cellulitis Qualifiers: Site of cellulitis: extremity Site of cellulitis of extremity: lower extremity Laterality: right Qualified Code(s): L03.115 - Cellulitis of right lower limb Elevated WBC count Qualifiers: Leukocytosis type: unspecified Qualified Code(s): D72.829 - Elevated white blood cell count, unspecified DVT (deep venous thrombosis) Qualifiers: DVT location: lower extremity Affected thrombotic vein of extremity: popliteal Chronicity: acute Laterality: right Qualified Code(s): I82.431 - Acute embolism and thrombosis of right popliteal vein Patient Disposition: Admitted As Inpatient Interventions: Admission Worksheet (ED) Last Done: 03/20/23 23:18 Discharge Date/Time: 03/20/23 23:40
[2023-03-20 17:05] LABS: Basophils Percent Auto 0.2 % (0-2); Eosinophils Percent Auto 0.1 % (0-4); Hemoglobin 12.1 g/dl (12.0-16.0); Imm Gran Abs Auto 0.19 X10*3/uL (0.00-0.03); Imm Gran Pct Auto 1.1 % (0.0-0.4); Lymphocytes Absolute Auto 0.6 X10*3/uL (1.2-4.9); Lymphocytes Percent Auto 3.6 % (20-40); Mean Corpuscular Volume 96.5 fL (80.0-98.0); Monocytes Absolute Auto 1.4 X10*3/uL (0.1-1.2); Monocytes Percent Auto 7.6 % (2-11); Neutrophils Absolute Auto 15.7 x10*3/uL (2.0-8.3); Neutrophils Percent Auto 87.4 % (45-73); Platelet Count 237 X10*3/uL (160-400); Red Blood Count 4.04 X10*6/uL (4.20-5.50); Red Cell Distribution Width 15.8 % (11.0-16.0); White Blood Count 17.9 X10*3/uL (4.8-10.8)
[2023-03-20 17:06] LABS: Prothrombin Time 36.6 SEC (11.1-13.3)
[2023-03-20 17:09] LABS: Lactic Acid 1.1 mmol/L (0.5-2.0)
[2023-03-20 17:19] LABS: B Type Natriuretic Peptide 95 pg/mL (<100); Troponin-I High Sensitivity 24.5 ng/L (<3.5-17.0)
[2023-03-20 17:21] LABS: Alanine Aminotransferase 7 U/L (0-31); Alkaline Phosphatase 52 U/L (39-117); Anion Gap 16 (12-20); Aspartate Amino Transferase 16 U/L (5-31); Bilirubin Direct 0.5 mg/dL (0.0-0.5); Bilirubin Total 1.6 mg/dL (0.0-1.0); Blood Urea Nitrogen 21 mg/dL (9-16); Calcium 9.2 mg/dL (8.4-10.2); Carbon Dioxide 22 mmol/L (22-29); Chloride 105 mmol/L (96-108); Creatinine Clr Calc Pharmacy 42.3; Estimated Glomerular Filt Rate > 60; Glucose Random 63 mg/dL (60-115); Magnesium 1.7 mg/dL (1.6-2.6); Sodium 139 mmol/L (135-145); Total Protein 5.6 g/dL (6.5-8.0)
[2023-03-20 17:34] LABS: Procalcitonin 2.14 ng/mL
[2023-03-20 17:42] LABS: Influenza A PCR NEGATIVE (Negative); Influenza B PCR NEGATIVE (Negative); Resp Syncy Virus RNA Qual PCR NEGATIVE (Negative); SARS COV2 PCR INHOUSE NEGATIVE (Negative)
[2023-03-20] MEDS: Acetaminophen 325 MG TABLET 650 MG PO (17:43)
[2023-03-20] MEDS: 0.9 % Sodium Chloride 1,000 ML 999 ML IV ×2 (17:43→23:08)
[2023-03-20] MEDS: Piperacillin Sodium/Tazobactam 3.375 GM in 0.9 % Sodium Chloride 50 ML IV (17:44)
[2023-03-20] MEDS: Albuterol Sulfate 2.5 MG, Albuterol/Iprat 2.5/0.5MG 3 ML 3 ML INHALE (18:06)
--- NOTE | 2023-03-20 18:22 | PC.NURSE ---
Per MD Calderon fluid orders adjust d/t pt not being hypotensive, and lactic negative (less than 4). pt rec zosyn, and NS as ordered. call diaz within reach- imaging results pending
--- NOTE | 2023-03-20 18:45 | PC.NURSE ---
pt continues to bend arm occluding flow of IVF- this nurse reminded pt to keep arm outstretched to allow fluids to infuse- pt has 800cc of fluid remaining at this time.
[2023-03-20] MEDS: iohexoL 350 MG/ML 100 ML INFUS..BTL 85 ML IV (19:14)
[2023-03-20] MEDS: Enoxaparin Sodium 60 MG/0.6 ML SYRINGE 50 MG SUBCUT (19:22)
[2023-03-20 19:57] LABS: Appearance Urine Cloudy; Color Urine Yellow; Glucose Urine UA Negative (Negative); Leukocyte Esterase Urine Moderate (2+) (Negative); Nitrite Urine Negative (Negative); PH 5.5 (5.0-9.0); Specific Gravity - Urine 1.015 (1.005-1.025); UMIC TRIGGER UACC YES; Urine Blood Large (3+) (Negative); Urine Ketones 15 mg/dL (Negative); Urine Protein 100 (2+) mg/dL (Neg-Trace)
--- NOTE | 2023-03-20 20:02 | MHC.EDTECH ---
Pt found to be incontinent of large amount of urine. Complete bedding change done and pt gown changed. Pt repositioned in bed and purewick placed correctly. RN aware
--- NOTE | 2023-03-20 20:14 | PC.NURSE ---
ua sent- purewick adjusted, new 20g IV in L-AC MD Calderon aware
[2023-03-20 20:22] LABS: Bacteria Urine 1+ (None Seen); Hyaline Casts Urine 0-2 /LPF (0-2); RBC Urine >20 /HPF (0-2); UACC Culture Trigger YES; WBC Urine 21-50 /HPF (0-5)
--- NOTE | 2023-03-20 20:43 | PHA.MEDREC ---
Pharmacy Consult ? Medication Reconciliation Pharmacy has completed the medication reconciliation. Patient reported medications. Patient reports that she was put on warfarin 2 mg daily by her PCP, and was told to take it until they called her. Sana Selby, RahelD
--- NOTE | 2023-03-20 21:18 | PM.IMHP ---
History of Present Illness Date of Service: 03/20/23 Attending physician on admission: Marcin Cronin Chief Complaint: severe pain R foot 78-year-old female with history of bilateral lung cancer s/p multiple resections, chronic hypoxemic respiratory failure on 2-3 L supplemental O2 p.r.n., history of breast cancer s/p chemotherapy and radiation, COPD, history of recurrent pulmonary emboli anticoagulated with Coumadin, and osteoporosis presented to the ED via EMS earlier today for evaluation of severe pain in the left foot associated swelling and erythema. She denies any fevers or chills. Denies any pain proximally in the right lower extremity. She reports compliance with her Coumadin. She did have an episode of hemoptysis several months ago and her Coumadin was briefly held but quickly resumed without recurrence of symptoms. She does follow with Dr. Jacques in thoracic surgery. Was previously following with Dr. Lomas in Hematology/Oncology but states now her PCP is managing her Coumadin. She does have a visiting nurse in the home who checks her INR which was 3.1 when last checked so her PCP decreased her Coumadin to 2 mg. She is ambulatory at baseline, but unable to walk today secondary to pain. On arrival, vital signs stable. However did develop fever of 101.3 with tachycardia of 114 on admission. Blood pressure is also noted to be soft on admission. No acute hypoxia. There is a leukocytosis of 17.9. PT 30 6.6, INR 3.0. Renal function baseline, electrolyte levels normal. Initial troponin 24.5, repeat pending. Procalcitonin 2.14. Urinalysis significant for 2+ leukocytes, 3+ blood, negative nitrites, positive urinary sediment, 1+ bacteria. Negative for influenza, COVID-19, RSV. Venous duplex of the right lower extremity shows DVT demonstrated right popliteal vein. Chest x-ray shows chronic appearing postoperative changes but no acute superimposed airspace disease. CT of the right lower extremity negative for any abscess or acute bony abnormality. No soft tissue gas. There is noted to be extensive vascular calcification and prominent varicosities in the superficial, subcutaneous fat. EKG shows atrial fibrillation which appears to be new onset, rate 93 with T-wave inversions in the inferolateral leads. Review of Systems Review of Systems: General: No fevers, malaise, unintentional weight loss HEENT: No blurred vision, diplopia. No sore throat, nasal congestion, rhinorrhea, sinus pain, ear pain Cardiovascular: No chest pain, palpitations, or leg edema Respiratory: No shortness of breath, wheezing, cough GI: No abdominal pain, nausea, vomiting, diarrhea, constipation, melena, hematochezia : No dysuria, hematuria, increased urinary frequency, decreased urinary output MSK: No myalgia, back pain. +pain/swelling R foot Neuro: No headaches, weakness, paresthesias Skin: No rashes or lesions [facility] Medical History Shortness of breath Respiratory failure with hypoxia Anxiety Tubular adenoma of colon (~2014) Cancer of upper lobe of left lung (~2020) Osteoporosis (~2018) History of pulmonary embolism (~2011) History of left breast cancer (~2008) Current use of anticoagulant therapy (~2011) Chronic bronchitis COPD (chronic obstructive pulmonary disease) Cancer of upper lobe of right lung (~2019) Closed intertrochanteric fracture with routine healing (~2019) Surgical History History of colonoscopy (~07/2014) History of tubal ligation History of lung surgery (~05/2020) History of tonsillectomy History of left breast biopsy (~03/2009) History of hip surgery (~11/2019) History of lumpectomy of left breast (~04/2009) History of appendectomy (~09/2012) History of lung surgery (~07/2019) Social History Household Members: Family Housing: House Do you presently have visiting nurse or other home services: Yes Alcohol intake: never Comment: rings appropriately Patient Tobacco Use Status: Former Tobacco user Years Smoked: 35pyh - quit 1998 Smoked in Last 30 Days: No Advance Directives: Yes Advance Directives on File: Yes Advance Directives Date on File: 07/25/22 Nutrition Risks: No Nutritional Risk service: No Current occupational status: disabled Meds Allergies Allergy/AdvReac Type Severity Reaction Status Date / Time No Known Allergies Allergy Verified 01/25/23 13:28 Active Medications: Current Medications Acetaminophen (Acetaminophen Supp 650 Mg Supp.Rect) 650 mg DC Q6H PRN PRN Reason: Pain, Mild (Pain Scale 1-3) Enoxaparin Sodium (Enoxaparin Sodium 40 Mg/0.4 Ml Syringe) 50 mg SUBCUT Q12H [facility] Cefazolin Sodium/Dextrose (Ancef) 2 gm in 50 mls @ 100 mls/hr IV Q8H [facility] Morphine Sulfate (Morphine Sulfate 4 Mg/Ml Cartridge) 2 mg IVPUSH Q4H PRN; Protocol PRN Reason: Pain, Severe (Pain Scale 7-10) Ondansetron HCl (Ondansetron Hcl 4 Mg/2 Ml Vial) 4 mg IVPUSH Q8H PRN PRN Reason: Nausea and Vomiting Oxycodone HCl (Oxycodone Hcl Immed Release 5 Mg Tablet) 5 mg PO Q6H PRN PRN Reason: Pain, Severe (Pain Scale 7-10) Senna (Sennosides 8.6 Mg Tablet) 17.2 mg PO BEDTIME PRN PRN Reason: Constipation Sodium Chloride (0.9 % Sodium Chloride Flush 3 Ml Syringe) 3 ml IVFLUSH QSHIFT [facility] Home Medications Medication Instructions Recorded Confirmed Last Taken Type cholecalciferol (vitamin D3) 50 50 mcg PO DAILY 06/14/21 03/20/23 02/09/23 History mcg (2,000 unit) capsule albuterol sulfate 90 mcg/actuation 2 puff PO Q6H PRN Shortness Of 07/23/22 03/20/23 Unknown History aerosol inhaler (Ventolin HFA) Breath Or Wheezing oxycodone 10 mg tablet 10 mg PO BID PRN Moderate Pain 09/15/22 03/20/23 02/09/23 History (Scale Score 5-6) formoterol fumarate 20 mcg/2 mL 20 mcg inhalation BID@0900,1700 02/10/23 03/20/23 02/09/23 History solution for nebulization (Perforomist) ipratropium 0.5 mg-albuterol 3 mg 3 ml inhalation BID@1300,2100 for 02/10/23 03/20/23 02/09/23 History (2.5 mg base)/3 mL nebulization wheezing soln prednisone 20 mg tablet 20 mg PO Q48H copd 03/20/23 03/20/23 Unknown History warfarin 2 mg tablet 2 mg PO DAILY 03/20/23 03/20/23 Unknown History Physical Exam Vital Signs and Narrative: Vital Signs: Last Vital Signs Temp 98.0 F 03/20/23 19:44 Pulse 83 03/20/23 19:44 Resp 18 03/20/23 19:44 BP 96/55 L 03/20/23 19:44 Pulse Ox 97 03/20/23 19:44 O2 Del Method Nasal Cannula 03/20/23 19:44 O2 Flow Rate 2 03/20/23 19:44 Oxygen Flow Rate 2 03/20/23 15:09 BMI result Body Mass Index 19.1 Constitutional - Awake and Alert, No apparent distress Eyes - PERRLA, EOMI Cardiovascular - S1S2, RRR, No edema Respiratory - Normal lung expansion, Normal respiratory effort, No respiratory distress, CTA bilaterally Gastrointestinal - NT / ND; +BS; No rebound or guarding Extremities - no calf tenderness bilaterally, mild swelling right lower leg, significant swelling R foot Skin - Warm/Dry. Significant swelling, erythema, warmth R foot. There is also mild erythema and scabbing of the b/l legs with shallow ulceration anterior R lower leg without any purulent drainage Neurological - Alert & oriented x3, CN II-XII in tact, 4/5 strength BLE Psychological - Appropriate affect Results Labs 03/20/23 16:52 03/20/23 16:52 Labs: Laboratory Results - last 24 hr 03/20/23 03/20/23 03/20/23 16:52 19:41 19:46 MCV 96.5 MCH 30.0 MCHC 31.0 RDW 15.8 Plt Count 237 MPV 11.0 Immature Gran % (Auto) 1.1 H Neut % (Auto) 87.4 H Lymph % (Auto) 3.6 L [place] % (Auto) 7.6 Eos % (Auto) 0.1 Baso % (Auto) 0.2 Lymph # (Auto) 0.6 L [place] # (Auto) 1.4 H Eos # (Auto) 0.0 Baso # (Auto) 0.0 Abs Immat Gran (auto) 0.19 H Absolute Neuts (auto) 15.7 H Absolute Nucleated RBC 0.000 Nucleated RBC % (auto) 0.0 PT 36.6 H D INR 3.0 H Anion Gap 16 Estim Creat Clear Calc 42.3 Estimated GFR > 60 Random Glucose 63 Lactic Acid 1.1 Calcium 9.2 Magnesium 1.7 Total Bilirubin 1.6 H Direct Bilirubin 0.5 AST 16 ALT 7 Alkaline Phosphatase 52 Total Creatine Kinase 20 L B-Natriuretic Peptide 95 Total Protein 5.6 L Albumin 3.0 L Procalcitonin 2.14 Urine Color Yellow Urine Appearance Cloudy Urine pH 5.5 Ur Specific [place] 1.015 Urine Protein 100 (2+) H Urine Glucose (UA) Negative Urine Ketones 15 Urine Blood Large (3+) H Urine Nitrite Negative Ur Leukocyte Esterase Moderate (2+) H Urine RBC >20 H Urine WBC 21-50 H Ur Squamous Epith Cells 11-20 Urine Bacteria 1+ Hyaline Casts 0-2 Influenza Type A (PCR) NEGATIVE Influenza Type B (PCR) NEGATIVE RSV RNA Qual (PCR) NEGATIVE SARS-CoV-2 RNA (RT-PCR) NEGATIVE Blood Type O Positive Antibody Screen NEGATIVE Imaging Radiologist's Impressions: Impressions Venous Duplex 03/20/23 17:25 IMPRESSION: DVT demonstrated in the right popliteal vein. Chest X-Ray 03/20/23 17:57 IMPRESSION: Chronic appearing and postoperative changes but no acute superimposed airspace disease. Lower Extremity CT 03/20/23 19:18 Impression: I do not appreciate any suspicious mass lesion or abnormal fluid collection. No acute bony abnormality seen. Extensive vascular calcification limits assessment for arterial patency. Prominent varicosities are seen in the superficial subcutaneous fat. Assessment and Plan (1) DVT (deep venous thrombosis): Qualifiers: Affected thrombotic vein of extremity: popliteal Chronicity: acute DVT location: lower extremity Laterality: right Qualified Code(s): I82.431 - Acute embolism and thrombosis of right popliteal vein Status: Acute (2) Sepsis: Status: Acute (3) Cellulitis: Qualifiers: Laterality: right Site of cellulitis: extremity Site of cellulitis of extremity: lower extremity Qualified Code(s): L03.115 - Cellulitis of right lower limb Status: Acute Plan 78-year-old female with history of bilateral lung cancer s/p multiple resections, chronic hypoxemic respiratory failure on 2-3 L supplemental O2 p.r.n., history of breast cancer s/p chemotherapy and radiation, COPD, history of recurrent pulmonary emboli anticoagulated with Coumadin, and osteoporosis admitted for cellulitis R foot with sepsis and recurrent VTE RLE. #Acute cellulitis R foot with sepsis -leukocytosis 17.8, febrile to 101.8, tachycardic to 115. No lactic acidosis or end-organ damage. No hypotension. -procalcitonin 2.14 -IV cefazolin renally adjusted to g b.i.d. (initiated 03/20) -pain management using pain scale p.r.n. -follow CBC, cultures, trend PCT # acute versus chronic DVT right lower extremity -has had recurrent VTE despite anticoagulation with Coumadin -therapeutic Lovenox b.i.d. per Hematology -INR therapeutic at 3.0. Hold Coumadin given possible failure of treatment -hematology consult # new onset atrial fibrillation-rate controlled on admission -anticoagulation as above -echocardiogram -cardiology consult -monitor on telemetry # elevated troponin -initial troponin 26.5, repeat pending. Likely demand -EKG showed new onset atrial fibrillation, rate 83 with T-wave inversions in anterolateral leads -denies chest pain -monitor on telemetry #Asymptomatic bacteruria -On cefazolin above -await cultures # COPD with chronic hypoxemic respiratory failure -continue supplemental O2 to maintain oximetry >90% -continue maintenance inhalers, albuterol p.r.n. -continue prednisone and azithromycin every other day # history of lung cancer/breast cancer -outpatient follow-up with Dr. Eubanks/Dr. Lomas #Moderate malnutrition due to protein deficiency -ensure bid, nutrition to follow DVT prophylaxis-therapeutic Lovenox DNR/DNI Patient requires inpatient stay at least 2 midnights for management of cellulitis of right foot with sepsis and intractable pain with elevated PCT requiring IV antibiotics and IV narcotics for pain management as well as further evaluation of recurrent VTE having failed Coumadin requiring parental anticoagulation expert consultation Quality Stroke Does the patient have a stroke diagnosis?: No VTE Prior VTE?: Yes VTE Risk Level:: Medical - moderate - high VTE Device Contraindication: Treatment Not Indicated VTE Drug Contraindication: N/A - Med Ordered
[2023-03-20] MEDS: oxyCODONE HCl Immed Release 5 MG TABLET PO (21:53)
--- NOTE | 2023-03-20 21:56 | PC.NURSE ---
pt medicated per MAR for 7/10 right foot pain- pt repositioned, IVF still infusing
[2023-03-20] MEDS: ceFAZolin Sodium/Dextrose,Iso 2 GM/50 ML PIGGYBACK IV (22:52)
--- NOTE | 2023-03-20 22:57 | PC.NURSE ---
DELAY IN FLUID ADMINISTRATION DUE TO FIRST ROUND OF FLUIDS STILL HANGING
[2023-03-20 23:41] LABS: Troponin-I High Sensitivity 31.9 ng/L (<3.5-17.0)
[2023-03-21] VITALS (8 sets, daily range): BP systolic 100–136; BP diastolic 58–68; PULSE 65–90; RESP 16–20; TEMP 36.1–36.7; O2SAT 3–100; BMI 18.9
[2023-03-21] MEDS: Morphine Sulfate 4 MG/ML CARTRIDGE 2 MG IVPUSH ×4 (00:17→19:32)
--- NOTE | 2023-03-21 00:43 | HO.SKINPHOTO ---
Location: right ankle Category: ulcer Stage: Length: Width: Depth: cm Location: Category: Stage: Length: Width: Depth: cm Location: Category: Stage: Length: Width: Depth: cm Location: Category: Stage: Length: Width: Depth: cm Location: Category: Stage: Length: Width: Depth: cm Location: Category: Stage: Length: Width: Depth: cm
[2023-03-21] MEDS: 0.9 % Sodium Chloride 1,000 ML 250 ML IVCONT (01:20)
[2023-03-21 06:23] LABS: MANUAL DIFF FLAG NO
[2023-03-21] MEDS: Albuterol Sulfate (0.083%) 2.5 MG/3 ML VIAL.NEB INHALE ×3 (06:34→21:49)
[2023-03-21 06:54] LABS: Basophils Percent Auto 0.3 % (0-2); Eosinophils Percent Auto 0.3 % (0-4); Hematocrit 30.5 % (37.0-47.0); Hemoglobin 9.4 g/dl (12.0-16.0); Imm Gran Abs Auto 0.09 X10*3/uL (0.00-0.03); Imm Gran Pct Auto 0.8 % (0.0-0.4); Lymphocytes Absolute Auto 0.5 X10*3/uL (1.2-4.9); Lymphocytes Percent Auto 4.4 % (20-40); Mean Corpuscular HGB Conc 30.8 g/dl (31.0-35.0); Mean Corpuscular Hemoglobin 29.9 pg (27.0-33.0); Mean Corpuscular Volume 97.1 fL (80.0-98.0); Mean Platelet Volume 11.5 fL (9.4-12.3); Monocytes Absolute Auto 0.7 X10*3/uL (0.1-1.2); Monocytes Percent Auto 6.7 % (2-11); Neutrophils Absolute Auto 9.5 x10*3/uL (2.0-8.3); Neutrophils Percent Auto 87.5 % (45-73); Platelet Count 180 X10*3/uL (160-400); Red Blood Count 3.14 X10*6/uL (4.20-5.50); Red Cell Distribution Width 15.9 % (11.0-16.0)
--- NOTE | 2023-03-21 07:00 | CA_ITS ---
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 There is mildly increased left ventricular wall thickness. The visually estimated ejection fraction is between 55-60%. Diastolic function is normal for age. - Normal right ventricular cavity size and systolic function. - There is mild to moderate aortic valve stenosis. - There is mild dilatation of the ascending aorta measuring 3.60 cm. Findings Left Ventricle Normal left ventricular size and systolic function. There is mildly increased left ventricular wall thickness. The visually estimated ejection fraction is between 55-60%. Diastolic function is normal for age. Right Ventricle Normal right ventricular cavity size and systolic function. Atria The left atrium is normal in size. Aortic Valve There is a normal trileaflet aortic valve. There is severe calcification of the aortic valve. There is mild to moderate aortic valve stenosis. The peak aortic velocity is 2.58 m/s. The mean gradient is 12 mmHg. The aortic valve area is 1.17 cm2. There is no aortic valve regurgitation. Mitral Valve The mitral valve appears normal. There is trace mitral valve regurgitation. There is no mitral valve stenosis. Pulmonic Valve The pulmonic valve is likely normal. Tricuspid Valve Normal tricuspid valve structure. There is trace tricuspid valve regurgitation. Normal right atrial pressure. There is no evidence of pulmonary hypertension. Great Vessels The pulmonary artery was not well visualized. There is mild dilatation of the ascending aorta measuring 3.60 cm. Venous The inferior vena cava is normal in size and collapses greater than 50% with inspiration. Pericardium/Pleural There is no evidence of pericardial effusion. Measurements 2D Linear Measurements IVSd: 1.11 0.6-0.9/0.6-1.0 cm LVIDd: 4.84 3.9-5.3/4.2-5.9 cm LVIDd Index: 3.23 2.4-3.2/2.2-3.1 cm/m2 LVIDs: 3.35 2.0-3.6 cm LVPWd: 1.06 0.7-1.1 cm Ao Root: 3.40 2.1-3.5 cm LA Diam: 2.90 2.7-3.8/3.0-4.0 cm LAIDs Index: 1.93 1.5-2.3 cm/m2 LV Mass: 240.34 67-162/88-224 g LV Mass Index: 160.22 43-95/49-115 g/m2 LVOT Diam: 2.00 3.0+(-)1.3 cm Mitral Valve MV Pk E: 0.44 MV PK A: 0.97 MV Decel Time: 128.00 E/A: 0.40 E'Lateral: 6.09 E'Medial: 4.68 E/E' Med: 9.30 E/E' Lat: 7.20 PHT: 37.00 MVA PHT: 5.95 Decel [place]: 3.42 Aortic Valve AoV Pk Moreno: 2.58 AoV Mn Moreno: 1.57 AoV VTI: 0.45 AoV Pk Grad: 27.00 Aov Mn Grad: 12.00 ROMAIN Cont.VTI: 1.17 LVOT LVOT Pk Moreno: 0.82 LVOT Mn Moreno: 0.59 LVOT VTI: 0.17 LVOT Pk Grad: 3.00 LVOT Mn Grad: 2.00 LVOT Diam: 2.00 LVOT Area: 3.14 Diastolic Function MV Pk E: 0.44 MV Pk A: 0.97 E/A: 0.40 E'Medial: 4.68 E/E' Med: 9.30 E' Laterial: 6.09 E/E' Lat: 7.20 Right Ventricle TAPSE (mm): 26.00 TVS' Moreno: 15.00 Tricuspid Valve TR Pk Moreno: 2.50 TR Pk Grad: 25.00 RA Press: 3.00 RVSP: 28.00 Great Vessels Aorta Ao Root-2D: 3.40 2.0-3.7 cm Ao Asc: 3.60 2.1-3.4 cm Pulmonary Valve PV Pk Moreno: 1.19 Peak PV Grad: 6.00 Updated in Other Vendor System with Status of Final Philip Nagel MD electronically signed on 03/21/2023 6:37:48 PM with status of Final
[2023-03-21 07:05] LABS: Anion Gap 10 (12-20); Blood Urea Nitrogen 20 mg/dL (9-16); Calcium 7.7 mg/dL (8.4-10.2); Carbon Dioxide 24 mmol/L (22-29); Chloride 110 mmol/L (96-108); Creatinine Clr Calc Pharmacy 38.7; Estimated Glomerular Filt Rate 57; Glucose Random 130 mg/dL (60-115); Potassium 3.9 mmol/L (3.3-5.1); Sodium 140 mmol/L (135-145)
[2023-03-21 07:20] LABS: White Blood Count 10.8 X10*3/uL (4.8-10.8)
[2023-03-21] MEDS: Enoxaparin Sodium 60 MG/0.6 ML SYRINGE 50 MG SUBCUT ×2 (08:44→19:33)
[2023-03-21] MEDS: predniSONE 20 MG TABLET PO (08:44)
[2023-03-21] MEDS: Azithromycin 250 MG TABLET PO (08:44)
[2023-03-21] MEDS: Cholecalciferol (Vitamin D3) 25 MCG TABLET 50 MCG PO (08:44)
[2023-03-21] MEDS: 0.9 % Sodium Chloride Flush 3 ML SYRINGE IVFLUSH ×3 (08:50→21:27)
[2023-03-21] MEDS: oxyCODONE HCl Immed Release 5 MG TABLET PO ×2 (08:57→15:27)
--- NOTE | 2023-03-21 09:15 | MHC.CM.PN ---
CM MET WITH PATIENT AT BEDSIDE. IMM DELIVERED. PATIENT IS FROM HOME WITH SON GABBY. ACTIVE WITH [facility] FOR SN (INR CHECKS AND WOUND CARE EVERY OTHER DAY). RETURN REFERRAL IN [facility]. AMBULATES WITH A WALKER, USES W/C PRN - THIS IS NEW THIS YEAR AFTER PELVIC FX. STANDBY ASSIST FOR ADL'S ([facility] OR [facility]). HOME O2 2-3L AND NEBULIZER THROUGH [facility]. HAS BEEN TO SNF/AR IN THE PAST - CARE [facility] AND [facility]. PREFERS [facility]. PCP: ROSEMARY COOPER MD HCP: BRANDY GHOSH [phone] DCP: ?PT EVAL. HOME RESUME SERVICES VIA FAMILY TRANSPORT VS STR VIA BLS. CM WILL CONTINUE TO FOLLOW.
[2023-03-21] MEDS: ceFAZolin Sodium/Dextrose,Iso 2 GM/50 ML PIGGYBACK IV ×2 (10:27→21:27)
--- NOTE | 2023-03-21 10:57 | HO.WOUND ---
Wound Consult: Intial 78yr old female admitted to [facility] on?03/20/23 21:09 - See progress notes and H&P for detailed history. Pt follows with [facility] - at time of discharge recommend continued followup with outpt clinic. Last visit with outpt Wound clinic was 03/12/23 and wound collagen gel was continued for topical treatment. Patient was last seen by this bid writer in February 2023 during her admission to [facility]. Photo review below shows significant wound bed improvement. S/S of Cellulitis observed. Pt reports continued significant pain at site dispute wound bed improvement - chart review reveals Outpt Wound Program Or Project Administrator aware. 02/14/23 Right Lateral Ankle - Last admission Todays assessment 03/21/23 03/21/23 - wound bed Right Lateral Ankle Etiology: Vascular wound - Not pressure related wound Measurements: .05cm x 0.2cm x 0.2cm Wound Bed: dry yellow slough Drainage / Odor: No drainage noted Edges: ? Well defined [place] wound: ? pink red intact dry tissue - extremely tender to touch No Induration, No Fluctuance Pain: Significant Pain reported to touch Goals of Treatment: ? Moist wound healing and autolytic debridement Recommend continue with Outpatient Wound Center for continued treatment at time of discharge. Recommendations: 1. Turn and Reposition every 2 hours and as needed for patient comfort. 2. Off Load all bony prominences with use of pillows and heel boots. 3. Monitor for incontinence and moisture control. 4. Provide adequate and supplemental nutrition. 5. Order low air loss mattress. 6. Right Lateral Lower Leg - Elevate on pillow - Cleanse with Saline, Pat dry. Apply Triad to periwound, pack wound bed with small piece of gauze impregnated with wound gel. Cover with ABD pad and gauze wrap. Change Daily. Re-consult wound care Nurse for wound deterioration or wound changes.
--- NOTE | 2023-03-21 11:35 | P.PNIM_ITS ---
Subjective Subjective Date of Service: 03/21/23 Interval History: No acute issues overnight. Left leg still painful Review of Systems Denies chest pain Denies shortness of breath Denies nausea vomiting diarrhea Denies fever chills Physical Exam 2 Vital Signs: Vital Signs: Last Vital Signs Temp 97.4 F 03/21/23 07:19 Pulse 82 03/21/23 11:22 Resp 20 03/21/23 11:22 BP 116/59 L 03/21/23 07:19 Pulse Ox 3 L 03/21/23 07:19 O2 Del Method Nasal Cannula 03/21/23 07:19 O2 Flow Rate 3 03/21/23 03:34 Oxygen Flow Rate 2 03/20/23 15:09 BMI result Body Mass Index 18.9 Const: Other: Ill-appearing. No acute distress Resp: Other: Diminished throughout with scant expiratory wheezes at bases Cardio: Other: No S4; positive S1-S2; no S3 murmurs rubs or gallops GI: Other: Soft nontender nondistended normoactive bowel sounds Extrem: Other: Persistent erythema left lower extremity Objective Data Active Medications Acetaminophen (Acetaminophen Supp 650 Mg Supp.Rect) 650 mg [place] Q6H PRN PRN Reason: Pain, Mild (Pain Scale 1-3) Albuterol Sulfate (Albuterol Sulfate 90 Mcg 8 Gm Inhaler) 2 puff INHALE Q6H PRN PRN Reason: Shortness Of Breath Or Wheezing Albuterol Sulfate (Albuterol Sulfate (0.083%) 2.5 Mg/3 Ml Vial.Neb) 2.5 mg INHALE Q4H PRN PRN Reason: Shortness of Breath/Wheezing Last Admin: 03/21/23 11:21 Dose: 2.5 mg Documented By: AIXA Azithromycin (Azithromycin 250 Mg Tablet) 250 mg PO Q48H [facility] Last Admin: 03/21/23 08:44 Dose: 250 mg Documented By: BEATRIZ Enoxaparin Sodium (Enoxaparin Sodium 60 Mg/0.6 Ml Syringe) 50 mg SUBCUT Q12H [facility] Last Admin: 03/21/23 08:44 Dose: 50 mg Documented By: BEATRIZ Cefazolin Sodium/Dextrose (Ancef) 2 gm in 50 mls @ 100 mls/hr IV Q12H [facility] Last Infusion: 03/21/23 11:24 Dose: Infused Documented By: BEATRIZ Lorazepam (Lorazepam 0.5 Mg Tablet) 0.5 mg PO TID PRN PRN Reason: anxiety Morphine Sulfate (Morphine Sulfate 4 Mg/Ml Cartridge) 2 mg IVPUSH Q4H PRN; Protocol PRN Reason: Pain, Severe (Pain Scale 7-10) Last Admin: 03/21/23 04:53 Dose: 2 mg Documented By: RANDY Non-Formulary Medication (Formoterol Fumarate [Perforomist]) 20 mcg INHALE BID@0900,1700 [facility] Ondansetron HCl (Ondansetron Hcl 4 Mg/2 Ml Vial) 4 mg IVPUSH Q8H PRN PRN Reason: Nausea and Vomiting Oxycodone HCl (Oxycodone Hcl Immed Release 5 Mg Tablet) 5 mg PO Q6H PRN PRN Reason: Pain, Severe (Pain Scale 7-10) Last Admin: 03/21/23 08:57 Dose: 5 mg Documented By: BEATRIZ Prednisone (Prednisone 20 Mg Tablet) 20 mg PO Q48H [facility] Last Admin: 03/21/23 08:44 Dose: 20 mg Documented By: BEATRIZ Senna (Sennosides 8.6 Mg Tablet) 17.2 mg PO BEDTIME PRN PRN Reason: Constipation Sodium Chloride (0.9 % Sodium Chloride Flush 3 Ml Syringe) 3 ml IVFLUSH QSHIFT [facility] Last Admin: 03/21/23 08:50 Dose: 3 ml Documented By: BEATRIZ Vitamin D (Cholecalciferol (Vitamin D3) 25 Mcg Tablet) 50 mcg PO DAILY [facility] Last Admin: 03/21/23 08:44 Dose: 50 mcg Documented By: BEATRIZ Labs 03/21/23 05:35 03/21/23 05:35 Labs: Laboratory Results - last 24 hr 03/20/23 03/20/23 03/20/23 16:52 19:41 19:46 MCV 96.5 MCH 30.0 MCHC 31.0 RDW 15.8 Plt Count 237 MPV 11.0 Immature Gran % (Auto) 1.1 H Neut % (Auto) 87.4 H Lymph % (Auto) 3.6 L [place] % (Auto) 7.6 Eos % (Auto) 0.1 Baso % (Auto) 0.2 Lymph # (Auto) 0.6 L [place] # (Auto) 1.4 H Eos # (Auto) 0.0 Baso # (Auto) 0.0 Abs Immat Gran (auto) 0.19 H Absolute Neuts (auto) 15.7 H Absolute Nucleated RBC 0.000 Nucleated RBC % (auto) 0.0 PT 36.6 H D INR 3.0 H Anion Gap 16 Estim Creat Clear Calc 42.3 Estimated GFR > 60 Random Glucose 63 Lactic Acid 1.1 Calcium 9.2 Magnesium 1.7 Total Bilirubin 1.6 H Direct Bilirubin 0.5 AST 16 ALT 7 Alkaline Phosphatase 52 Total Creatine Kinase 20 L B-Natriuretic Peptide 95 Total Protein 5.6 L Albumin 3.0 L Procalcitonin 2.14 Urine Color Yellow Urine Appearance Cloudy Urine pH 5.5 Ur Specific [place] 1.015 Urine Protein 100 (2+) H Urine Glucose (UA) Negative Urine Ketones 15 Urine Blood Large (3+) H Urine Nitrite Negative Ur Leukocyte Esterase Moderate (2+) H Urine RBC >20 H Urine WBC 21-50 H Ur Squamous Epith Cells 11-20 Urine Bacteria 1+ Hyaline Casts 0-2 Influenza Type A (PCR) NEGATIVE Influenza Type B (PCR) NEGATIVE RSV RNA Qual (PCR) NEGATIVE SARS-CoV-2 RNA (RT-PCR) NEGATIVE Blood Type O Positive Antibody Screen NEGATIVE 03/21/23 05:35 MCV 97.1 MCH 29.9 MCHC 30.8 L RDW 15.9 Plt Count 180 MPV 11.5 Immature Gran % (Auto) 0.8 H Neut % (Auto) 87.5 H Lymph % (Auto) 4.4 L [place] % (Auto) 6.7 Eos % (Auto) 0.3 Baso % (Auto) 0.3 Lymph # (Auto) 0.5 L [place] # (Auto) 0.7 Eos # (Auto) 0.0 Baso # (Auto) 0.0 Abs Immat Gran (auto) 0.09 H Absolute Neuts (auto) 9.5 H Absolute Nucleated RBC 0.000 Nucleated RBC % (auto) 0.0 PT INR Anion Gap 10 L Estim Creat Clear Calc 38.7 Estimated GFR 57 Random Glucose 130 H Lactic Acid Calcium 7.7 L D Magnesium Total Bilirubin Direct Bilirubin AST ALT Alkaline Phosphatase Total Creatine Kinase B-Natriuretic Peptide Total Protein Albumin Procalcitonin Urine Color Urine Appearance Urine pH Ur Specific [place] Urine Protein Urine Glucose (UA) Urine Ketones Urine Blood Urine Nitrite Ur Leukocyte Esterase Urine RBC Urine WBC Ur Squamous Epith Cells Urine Bacteria Hyaline Casts Influenza Type A (PCR) Influenza Type B (PCR) RSV RNA Qual (PCR) SARS-CoV-2 RNA (RT-PCR) Blood Type Antibody Screen Assessment and Plan (1) Cellulitis: Status: Acute (2) Sepsis: Status: Acute Plan 78-year-old female with history of bilateral lung cancer s/p multiple resections, chronic hypoxemic respiratory failure on 2-3 L supplemental O2 p.r.n., history of breast cancer s/p chemotherapy and radiation, COPD, history of recurrent pulmonary emboli anticoagulated with Coumadin, and osteoporosis admitted for cellulitis R foot with sepsis and recurrent VTE RLE. 1.Acute cellulitis R foot/sepsis -cefazolin (3) -pain management using pain scale p.r.n. -follow CBC, cultures, trend PCT 2.Acute versus chronic DVT right lower extremity -therapeutic Lovenox b.i.d. per Hematology -INR therapeutic at 3.0. Hold Coumadin given possible failure of treatment 3.New onset atrial fibrillation-rate -acceptable rate control -adjust therapies as indicated -echocardiogram pending -telemetry 4.Asymptomatic bacteruria -On cefazolin above -await cultures 5.COPD with chronic hypoxemic respiratory failure -continue supplemental O2 to maintain oximetry >90% -continue maintenance inhalers, albuterol p.r.n. -continue prednisone and azithromycin every other day Lovenox DNR/DNI Patient requires inpatient stay for management of cellulitis of right foot with sepsis and intractable pain with elevated PCT requiring IV antibiotics and IV narcotics for pain management as well as further evaluation of recurrent VTE having failed Coumadin requiring parental anticoagulation expert consultation Quality Stroke Does the patient have a stroke diagnosis?: No VTE Prior VTE?: Yes VTE Risk Level:: Medical - moderate - high VTE Device Contraindication: Treatment Not Indicated VTE Drug Contraindication: N/A - Med Ordered
--- NOTE | 2023-03-21 12:04 | P.CONCA_ITS ---
History of Present Illness History of Present Illness Date of Service: 03/21/23 Requesting physician: José Devi Chief complaint: Cellulitis RLE, DVT RLE? Afib Narrative: 78-year-old female presenting with lower extremity pain and erythema and has been diagnosed with cellulitis. She also had ultrasound which raise concern for deep vein thrombosis but it is unclear whether this is acute versus chronic as she has been on chronic Coumadin therapy for previous DVT. She has COPD. She was getting fevers at home. She still has a lot of pain and legs. We have been asked to see her because there is some concern for atrial fibrillation raised on EKG. EKG was reviewed and in fact she has sinus rhythm with premature atrial complexes. Telemetry also has not shown any obvious evidence of atrial fibrillation currently. [facility] Past Medical History Medical History Shortness of breath Respiratory failure with hypoxia Anxiety Tubular adenoma of colon (~2014) Cancer of upper lobe of left lung (~2020) Osteoporosis (~2018) History of pulmonary embolism (~2011) History of left breast cancer (~2008) Current use of anticoagulant therapy (~2011) Chronic bronchitis COPD (chronic obstructive pulmonary disease) Cancer of upper lobe of right lung (~2019) Closed intertrochanteric fracture with routine healing (~2019) Surgical History Surgical History History of colonoscopy (~07/2014) History of tubal ligation History of lung surgery (~05/2020) History of tonsillectomy History of left breast biopsy (~03/2009) History of hip surgery (~11/2019) History of lumpectomy of left breast (~04/2009) History of appendectomy (~09/2012) History of lung surgery (~07/2019) Social History Social History Household Members: Children Housing: House Do you presently have visiting nurse or other home services: Yes (VNA's every other day) Alcohol intake: never Comment: rings appropriately Patient Tobacco Use Status: Former Tobacco user Quit Date: 1996 Years Smoked: 35pyh - quit 1997 Smoked in Last 30 Days: No Patient Interested in Nicotine Replacement: No Patient Given Instructions on How to Stop Smoking: No Second Hand Smoke Exposure: No Use of substances other than those prescribed or required for medical reasons: No Currently Displaying Signs/Symptoms of Drug Intoxication Withdrawal: No Have you been hit, kicked, punched, or otherwise hurt by someone within the past year? If so, by whom?: No Do you feel safe in your current relationship?: No Current Relationship Is there a partner from a previous relationship who is making you feel unsafe now?: No Are you made to feel afraid or neglected: No Advance Directives: Yes Advance Directives on File: Yes Advance Directives Date on File: 07/25/22 Do you have thoughts of harming others: None Do you have a plan to hurt others: No Plan Recently lost weight without trying: No How much weight loss: Not applicable Eating poorly because of decreased appetite: No Nutrition screen score: 0 Nutrition Risks: No Nutritional Risk Patient : No : No Poor oral hygiene: No service: No Current occupational status: disabled [employer] Allergies Allergy/AdvReac Type Severity Reaction Status Date / Time No Known Allergies Allergy Verified 01/25/23 13:28 Active Medications: Current Medications Acetaminophen (Acetaminophen Supp 650 Mg Supp.Rect) 650 mg [place] Q6H PRN PRN Reason: Pain, Mild (Pain Scale 1-3) Albuterol Sulfate (Albuterol Sulfate 90 Mcg 8 Gm Inhaler) 2 puff INHALE Q6H PRN PRN Reason: Shortness Of Breath Or Wheezing Albuterol Sulfate (Albuterol Sulfate (0.083%) 2.5 Mg/3 Ml Vial.Neb) 2.5 mg INHALE Q4H PRN PRN Reason: Shortness of Breath/Wheezing Last Admin: 03/21/23 11:21 Dose: 2.5 mg Azithromycin (Azithromycin 250 Mg Tablet) 250 mg PO Q48H [facility] Last Admin: 03/21/23 08:44 Dose: 250 mg Enoxaparin Sodium (Enoxaparin Sodium 60 Mg/0.6 Ml Syringe) 50 mg SUBCUT Q12H [facility] Last Admin: 03/21/23 08:44 Dose: 50 mg Cefazolin Sodium/Dextrose (Ancef) 2 gm in 50 mls @ 100 mls/hr IV Q12H [facility] Last Infusion: 03/21/23 11:24 Dose: Infused Lorazepam (Lorazepam 0.5 Mg Tablet) 0.5 mg PO TID PRN PRN Reason: anxiety Morphine Sulfate (Morphine Sulfate 4 Mg/Ml Cartridge) 2 mg IVPUSH Q4H PRN; Protocol PRN Reason: Pain, Severe (Pain Scale 7-10) Last Admin: 03/21/23 04:53 Dose: 2 mg Non-Formulary Medication (Formoterol Fumarate [Perforomist]) 20 mcg INHALE BID@0900,1700 [facility] Ondansetron HCl (Ondansetron Hcl 4 Mg/2 Ml Vial) 4 mg IVPUSH Q8H PRN PRN Reason: Nausea and Vomiting Oxycodone HCl (Oxycodone Hcl Immed Release 5 Mg Tablet) 5 mg PO Q6H PRN PRN Reason: Pain, Severe (Pain Scale 7-10) Last Admin: 03/21/23 08:57 Dose: 5 mg Prednisone (Prednisone 20 Mg Tablet) 20 mg PO Q48H [facility] Last Admin: 03/21/23 08:44 Dose: 20 mg Senna (Sennosides 8.6 Mg Tablet) 17.2 mg PO BEDTIME PRN PRN Reason: Constipation Sodium Chloride (0.9 % Sodium Chloride Flush 3 Ml Syringe) 3 ml IVFLUSH QSHIFT [facility] Last Admin: 03/21/23 08:50 Dose: 3 ml Vitamin D (Cholecalciferol (Vitamin D3) 25 Mcg Tablet) 50 mcg PO DAILY [facility] Last Admin: 03/21/23 08:44 Dose: 50 mcg Home Medications Medication Instructions Recorded Confirmed Last Taken Type cholecalciferol (vitamin D3) 50 50 mcg PO DAILY 06/14/21 03/20/23 02/09/23 History mcg (2,000 unit) capsule albuterol sulfate 90 mcg/actuation 2 puff PO Q6H PRN Shortness Of 07/23/22 03/20/23 Unknown History aerosol inhaler (Ventolin HFA) Breath Or Wheezing oxycodone 10 mg tablet 10 mg PO BID PRN Moderate Pain 09/15/22 03/20/23 02/09/23 History (Scale Score 5-6) formoterol fumarate 20 mcg/2 mL 20 mcg inhalation BID@0900,1700 02/10/23 03/20/23 02/09/23 History solution for nebulization (Perforomist) ipratropium 0.5 mg-albuterol 3 mg 3 ml inhalation BID@1300,2100 for 02/10/23 03/20/23 02/09/23 History (2.5 mg base)/3 mL nebulization wheezing soln prednisone 20 mg tablet 20 mg PO Q48H [facility] 03/20/23 03/20/23 Unknown History warfarin 2 mg tablet 2 mg PO DAILY 03/20/23 03/20/23 Unknown History Physical Exam 2 Vital Signs: Vital Signs: Last Vital Signs Temp 97.4 F 03/21/23 07:19 Pulse 82 03/21/23 11:22 Resp 20 03/21/23 11:22 BP 116/59 L 03/21/23 07:19 Pulse Ox 3 L 03/21/23 07:19 O2 Del Method Nasal Cannula 03/21/23 07:19 O2 Flow Rate 3 03/21/23 03:34 Oxygen Flow Rate 2 03/20/23 15:09 BMI result Body Mass Index 18.9 GENERAL APPEARANCE: in no acute distress, pleasant. NECK: no carotid bruit, no jugular venous distention. SKIN: Erythema right lower extremity. HEART: no murmurs, regular rate and rhythm. LUNGS: clear to auscultation bilaterally. ABDOMEN: soft, nontender. EXTREMITIES: no edema. PERIPHERAL PULSES: equal. NEUROLOGIC: No gross deficits, AAO X 3 Objective Labs and Meds 03/21/23 05:35 03/21/23 05:35 Lab results: Laboratory Results - last 24 hr 03/20/23 03/20/23 03/20/23 16:52 19:41 19:46 WBC 17.9 H RBC 4.04 L Hgb 12.1 Hct 39.0 MCV 96.5 MCH 30.0 MCHC 31.0 RDW 15.8 Plt Count 237 MPV 11.0 Immature Gran % (Auto) 1.1 H Neut % (Auto) 87.4 H Lymph % (Auto) 3.6 L [place] % (Auto) 7.6 Eos % (Auto) 0.1 Baso % (Auto) 0.2 Lymph # (Auto) 0.6 L [place] # (Auto) 1.4 H Eos # (Auto) 0.0 Baso # (Auto) 0.0 Abs Immat Gran (auto) 0.19 H Absolute Neuts (auto) 15.7 H Absolute Nucleated RBC 0.000 Nucleated RBC % (auto) 0.0 PT 36.6 H D INR 3.0 H Sodium 139 Potassium 4.0 Chloride 105 Carbon Dioxide 22 Anion Gap 16 BUN 21 H Creatinine 0.87 Estim Creat Clear Calc 42.3 Estimated GFR > 60 Random Glucose 63 Lactic Acid 1.1 Calcium 9.2 Magnesium 1.7 Total Bilirubin 1.6 H Direct Bilirubin 0.5 AST 16 ALT 7 Alkaline Phosphatase 52 Total Creatine Kinase 20 L Troponin I High Sens 24.5 H B-Natriuretic Peptide 95 Total Protein 5.6 L Albumin 3.0 L Procalcitonin 2.14 Urine Color Yellow Urine Appearance Cloudy Urine pH 5.5 Ur Specific [place] 1.015 Urine Protein 100 (2+) H Urine Glucose (UA) Negative Urine Ketones 15 Urine Blood Large (3+) H Urine Nitrite Negative Ur Leukocyte Esterase Moderate (2+) H Urine RBC >20 H Urine WBC 21-50 H Ur Squamous Epith Cells 11-20 Urine Bacteria 1+ Hyaline Casts 0-2 Influenza Type A (PCR) NEGATIVE Influenza Type B (PCR) NEGATIVE RSV RNA Qual (PCR) NEGATIVE SARS-CoV-2 RNA (RT-PCR) NEGATIVE Blood Type O Positive Antibody Screen NEGATIVE 03/20/23 03/21/23 22:53 05:35 WBC 10.8 RBC 3.14 L D Hgb 9.4 L D Hct 30.5 L D MCV 97.1 MCH 29.9 MCHC 30.8 L RDW 15.9 Plt Count 180 MPV 11.5 Immature Gran % (Auto) 0.8 H Neut % (Auto) 87.5 H Lymph % (Auto) 4.4 L [place] % (Auto) 6.7 Eos % (Auto) 0.3 Baso % (Auto) 0.3 Lymph # (Auto) 0.5 L [place] # (Auto) 0.7 Eos # (Auto) 0.0 Baso # (Auto) 0.0 Abs Immat Gran (auto) 0.09 H Absolute Neuts (auto) 9.5 H Absolute Nucleated RBC 0.000 Nucleated RBC % (auto) 0.0 PT INR Sodium 140 Potassium 3.9 Chloride 110 H Carbon Dioxide 24 Anion Gap 10 L BUN 20 H Creatinine 0.94 Estim Creat Clear Calc 38.7 Estimated GFR 57 Random Glucose 130 H Lactic Acid Calcium 7.7 L D Magnesium Total Bilirubin Direct Bilirubin AST ALT Alkaline Phosphatase Total Creatine Kinase Troponin I High Sens 31.9 H B-Natriuretic Peptide Total Protein Albumin Procalcitonin Urine Color Urine Appearance Urine pH Ur Specific [place] Urine Protein Urine Glucose (UA) Urine Ketones Urine Blood Urine Nitrite Ur Leukocyte Esterase Urine RBC Urine WBC Ur Squamous Epith Cells Urine Bacteria Hyaline Casts Influenza Type A (PCR) Influenza Type B (PCR) RSV RNA Qual (PCR) SARS-CoV-2 RNA (RT-PCR) Blood Type Antibody Screen Imaging Radiologist's impression: Impressions Venous Duplex 03/20/23 17:25 IMPRESSION: DVT demonstrated in the right popliteal vein. Chest X-Ray 03/20/23 17:57 IMPRESSION: Chronic appearing and postoperative changes but no acute superimposed airspace disease. Lower Extremity CT 03/20/23 19:18 Impression: I do not appreciate any suspicious mass lesion or abnormal fluid collection. No acute bony abnormality seen. Extensive vascular calcification limits assessment for arterial patency. Prominent varicosities are seen in the superficial subcutaneous fat. Assessment and Plan (1) DVT (deep venous thrombosis): Qualifiers: Affected thrombotic vein of extremity: popliteal Chronicity: acute DVT location: lower extremity Laterality: right Qualified Code(s): I82.431 - Acute embolism and thrombosis of right popliteal vein Status: Acute (2) Cellulitis: Qualifiers: Laterality: right Site of cellulitis: extremity Site of cellulitis of extremity: lower extremity Qualified Code(s): L03.115 - Cellulitis of right lower limb Status: Acute Plan Pleasant 78-year-old female who is in the hospital for DVT and cellulitis lower extremities. We have been asked to assess for atrial fibrillation. EKG in fact is showing sinus rhythm with premature atrial complexes and the computer read was atrial fibrillation. We will correct that. Currently no obvious evidence of atrial fibrillation. She is on anticoagulation for DVT. If there is any concern again please message us. Signing off for now. Thank you for allowing me to participate in the care of your patient. Please feel free to contact me if you have any questions. Procedures Date of Service Date of Service: 03/21/23
--- NOTE | 2023-03-21 12:25 | PM.HEMONCCN ---
Subjective - Subjective Chief complaint: Right foot pain and swelling Patient: new to practice Consult date: 03/21/23 Primary Care Provider: Lee Montiel MD HPI - Consult Narrative Reason for consult: Right leg DVT Narrative: Blessing Nails is a 78 year old female with history of bilateral lung cancer, status post resections, COPD, history of breast cancer, history of DVT/pulmonary embolism is admitted for DVT of right lower extremity and cellulitis. He says in the last few weeks she is being treated at the wound clinic at [facility] for open wound on her right foot. She was also evaluated for peripheral vascular disease which she has but she was told that she might not be a surgical candidate. She presented to emergency department yesterday with sudden onset of pain and swelling in the right foot. Ultrasound revealed nonocclusive thrombus in the right popliteal vein. She has been on warfarin for many years, her INR was therapeutic, 3.1. Patient does not recall if she had a DVT in the same leg before. She used to see oncologist Dr. Lomas for a lung mass which has been stable in size over the years. She also sees Dr. Altamirano. As per history, she was briefly taken off warfarin because of episode of hemoptysis which seem to have resolved. She denies any hemoptysis, pleuritic chest pain at this time. She has chronic shortness of breath because of COPD. She says this is her baseline. Review of Systems - Constitutional Reports as per HPI - Cardiovascular Reports no additional cardiovascular complaints - Respiratory Reports no additional respiratory complaints Oncology Screenings - ECOG Performance Status ECOG Performance Status: 3 [facility] Medical History: Medical History (Last Reviewed 03/20/23 @ 21:28 by BRODIE Machado) Anxiety Cancer of upper lobe of left lung Onset Date: ~2020 Cancer of upper lobe of right lung Onset Date: ~2019 Chronic bronchitis Closed intertrochanteric fracture with routine healing Onset Date: ~2019 COPD (chronic obstructive pulmonary disease) Current use of anticoagulant therapy Onset Date: ~2011 History of left breast cancer Onset Date: ~2008 History of pulmonary embolism Onset Date: ~2011 Osteoporosis Onset Date: ~2018 Respiratory failure with hypoxia Shortness of breath Tubular adenoma of colon Onset Date: ~2014 Surgical History: Surgical History (Last Reviewed 03/20/23 @ 21:28 by BRODIE Machado) History of appendectomy Onset Date: ~09/2012 History of colonoscopy Onset Date: ~07/2014 History of hip surgery Onset Date: ~11/2019 History of left breast biopsy Onset Date: ~03/2009 History of lumpectomy of left breast Onset Date: ~04/2009 History of lung surgery Onset Date: ~07/2019 History of lung surgery Onset Date: ~05/2020 History of tonsillectomy History of tubal ligation Social History: Social History (Last Reviewed 03/20/23 @ 21:28 by BRODIE Machado) Living Situation History: Household Members: Children Housing: House Do you presently have visiting nurse or other home services: Yes Do you presently have visiting nurse or other home services comment: VNA's every other day Alcohol History Details: 1. How often do you have a drink containing alcohol?: a. Never AUDIT-C Alcohol total score: 0 Currently Displaying Signs/Symptoms of Alcohol Withdrawal: No Tobacco History: Patient Tobacco Use Status: Former Tobacco user Years Smoked: 35pyh - quit 1997 Smoked in Last 30 Days: No Smoke Quit Date: 1996 Patient Interested in Nicotine Replacement: No Patient Given Instructions on How to Stop Smoking: No Second Hand Smoke Exposure: No Substance Use History: Use of substances other than those prescribed or required for medical reasons: No Currently Displaying Signs/Symptoms of Drug Intoxication Withdrawal: No Domestic Abuse History: Have you been hit, kicked, punched, or otherwise hurt by someone within the past year? If so, by whom?: No Do you feel safe in your current relationship?: No Current Relationship Is there a partner from a previous relationship who is making you feel unsafe now?: No Are you made to feel afraid or neglected: No Advance Directives: Advance Directives: Yes Advance Directives on File: Yes Advance Directives Date on File: 07/25/22 Homicidal Assessment: Do you have thoughts of harming others: None Do you have a plan to hurt others: No Plan Nutrition Assessment: Recently lost weight without trying: No How much weight loss: Not applicable Eating poorly because of decreased appetite: No Nutrition screen score: 0 Nutrition Risks: No Nutritional Risk Patient : No : No Poor oral hygiene: No Occupation Assessmet: service: No Current occupational status: disabled Home Medications and Allergies Current Medications: Current Medications Acetaminophen (Acetaminophen Supp 650 Mg Supp.Rect) 650 mg [place] Q6H PRN PRN Reason: Pain, Mild (Pain Scale 1-3) Albuterol Sulfate (Albuterol Sulfate 90 Mcg 8 Gm Inhaler) 2 puff INHALE Q6H PRN PRN Reason: Shortness Of Breath Or Wheezing Albuterol Sulfate (Albuterol Sulfate (0.083%) 2.5 Mg/3 Ml Vial.Neb) 2.5 mg INHALE Q4H PRN PRN Reason: Shortness of Breath/Wheezing Last Admin: 03/21/23 11:21 Dose: 2.5 mg Azithromycin (Azithromycin 250 Mg Tablet) 250 mg PO Q48H [facility] Last Admin: 03/21/23 08:44 Dose: 250 mg Enoxaparin Sodium (Enoxaparin Sodium 60 Mg/0.6 Ml Syringe) 50 mg SUBCUT Q12H [facility] Last Admin: 03/21/23 08:44 Dose: 50 mg Cefazolin Sodium/Dextrose (Ancef) 2 gm in 50 mls @ 100 mls/hr IV Q12H [facility] Last Infusion: 03/21/23 11:24 Dose: Infused Lorazepam (Lorazepam 0.5 Mg Tablet) 0.5 mg PO TID PRN PRN Reason: anxiety Morphine Sulfate (Morphine Sulfate 4 Mg/Ml Cartridge) 2 mg IVPUSH Q4H PRN; Protocol PRN Reason: Pain, Severe (Pain Scale 7-10) Last Admin: 03/21/23 12:17 Dose: 2 mg Non-Formulary Medication (Formoterol Fumarate [Perforomist]) 20 mcg INHALE BID@0900,1700 [facility] Ondansetron HCl (Ondansetron Hcl 4 Mg/2 Ml Vial) 4 mg IVPUSH Q8H PRN PRN Reason: Nausea and Vomiting Oxycodone HCl (Oxycodone Hcl Immed Release 5 Mg Tablet) 5 mg PO Q6H PRN PRN Reason: Pain, Severe (Pain Scale 7-10) Last Admin: 03/21/23 08:57 Dose: 5 mg Prednisone (Prednisone 20 Mg Tablet) 20 mg PO Q48H [facility] Last Admin: 03/21/23 08:44 Dose: 20 mg Senna (Sennosides 8.6 Mg Tablet) 17.2 mg PO BEDTIME PRN PRN Reason: Constipation Sodium Chloride (0.9 % Sodium Chloride Flush 3 Ml Syringe) 3 ml IVFLUSH QSHIFT [facility] Last Admin: 03/21/23 08:50 Dose: 3 ml Vitamin D (Cholecalciferol (Vitamin D3) 25 Mcg Tablet) 50 mcg PO DAILY [facility] Last Admin: 03/21/23 08:44 Dose: 50 mcg Home Medications Medication Instructions Recorded Confirmed Type cholecalciferol (vitamin D3) 50 50 mcg PO DAILY 06/14/21 03/20/23 History mcg (2,000 unit) capsule albuterol sulfate 90 mcg/actuation 2 puff PO Q6H PRN Shortness Of 07/23/22 03/20/23 History aerosol inhaler (Ventolin HFA) Breath Or Wheezing oxycodone 10 mg tablet 10 mg PO BID PRN Moderate Pain 09/15/22 03/20/23 History (Scale Score 5-6) formoterol fumarate 20 mcg/2 mL 20 mcg inhalation BID@0900,1700 02/10/23 03/20/23 History solution for nebulization (Perforomist) ipratropium 0.5 mg-albuterol 3 mg 3 ml inhalation BID@1300,2100 for 02/10/23 03/20/23 History (2.5 mg base)/3 mL nebulization wheezing soln prednisone 20 mg tablet 20 mg PO Q48H copd 03/20/23 03/20/23 History warfarin 2 mg tablet 2 mg PO DAILY 03/20/23 03/20/23 History Allergies Allergy/AdvReac Type Severity Reaction Status Date / Time No Known Allergies Allergy Verified 01/25/23 13:28 Physical Exam Vital signs: Vital Signs Temp 97.4 F 03/21/23 07:19 Pulse 82 03/21/23 11:22 Resp 20 03/21/23 11:22 BP 116/59 L 03/21/23 07:19 Pulse Ox 3 L 03/21/23 07:19 O2 Del Method Nasal Cannula 03/21/23 07:19 O2 Flow Rate 3 03/21/23 03:34 Intake & Output 03/20/23 03/21/23 03/21/23 18:59 06:59 18:59 Intake Total 50 / 3300 3250 / 3300 50 / 50 Output Total 450 / 450 Balance 50 / 2850 2800 / 2850 50 / 50 Urine Output (Average ml/kg/hr) 0.73 0.73 Intake: Intake, Oral Amount 200 / 200 Intake, IV Amount 50 / 3100 3050 / 3100 50 / 50 0.9 % Sodium Chloride 1,000 ml 2000 / 2000 @ 999 mls/hr IV .Q1H1M [facility] Rx#: [id number] Piperacillin Sodium/Tazobactam 50 / 50 3.375 gm In 0.9 % Sodium Chloride 50 ml @ 100 mls/hr IV ONCE ONE Rx#:[id number] ceFAZolin Sodium/Dextrose,Iso 2 50 / 50 50 / 50 gm In 50 ml @ 100 mls/hr IV Q12H [facility] Rx#:[id number] 0.9 % Sodium Chloride 1,000 ml 1000 / 1000 @ 250 mls/hr IVCONT .Q4H [facility] Rx #:[id number] Output: Output, Urine Amount 150 / 150 Output, Urine Amount (Catheter) 300 / 300 purewick 300 / 300 Other: Last Bowel Movement 03/15/23 Weight 52 kg 51.4 kg Weight in Grams 40576 Weight 51.4 kg - Constitutional Present: mild distress, chronically ill appearing - Routine HEENT Exam Eye: Present: normal appearance, conjunctivae pale - Routine Neck Exam Absent: lymphadenopathy - Routine Respiratory Exam Present: accessory muscle use, rhonchi - Routine Cardiovascular Exam Cardiovascular: Present: S1, S2 - Routine Abdominal Exam Present: soft - Routine Extremities Exam Present: pedal edema, tenderness Hem/Onc Consult Result - Labs CBC & Chem 7: 03/21/23 05:35 03/21/23 05:35 Labs: Short CBC 03/20/23 03/21/23 Range/Units 16:52 05:35 WBC 17.9 H 10.8 (4.8-10.8) X10*3/uL Hgb 12.1 9.4 L D (12.0-16.0) g/dl Hct 39.0 30.5 L D (37.0-47.0) % Plt Count 237 180 (160-400) X10*3/uL BMP 03/20/23 03/21/23 16:52 05:35 Sodium 139 140 Potassium 4.0 3.9 Chloride 105 110 H Carbon Dioxide 22 24 BUN 21 H 20 H Creatinine 0.87 0.94 Calcium 9.2 7.7 L D Cardiac Enzymes 03/20/23 Range/Units 16:52 Total Creatine Kinase 20 L (26-140) U/L Liver Function 03/20/23 Range/Units 16:52 Total Bilirubin 1.6 H (0.0-1.0) mg/dL Direct Bilirubin 0.5 (0.0-0.5) mg/dL AST 16 (5-31) U/L ALT 7 (0-31) U/L Alkaline Phosphatase 52 (39-117) U/L Albumin 3.0 L (3.5-5.0) g/dL Urine 03/20/23 Range/Units 19:46 Urine Color Yellow Urine Appearance Cloudy Urine pH 5.5 (5.0-9.0) Ur Specific [place] 1.015 (1.005-1.025) Urine Protein 100 (2+) H (Neg-Trace) mg/dL Urine Glucose (UA) Negative (Negative) mg/dL Assessment and Plan Patient Active problem list reviewed?: Yes (1) DVT (deep venous thrombosis) Status: Acute Assessment and plan: 1. This is a 78-year-old woman with history of lung cancer, status post bilateral resections, severe COPD, peripheral vascular disease and remote history of thromboembolism presenting with right lower extremity DVT while on warfarin. Patient has been on warfarin for many years, she thinks it could be related to previous thromboembolism but she is not sure. She used to follow Dr. Lomas at [facility], she last saw him 2 years ago. She says she did not have to see him anymore because the lung mass has remained stable and not grown in size. She presented with acute symptoms of pain and swelling for about a day. She has had a chronic wound right foot for which she goes to the wound clinic at [facility]. She did not have similar pain with the foot ulcer. She appears to have failed warfarin therapy since she was therapeutic when she developed symptomatic nonocclusive thrombus in the right popliteal vein as evidenced by her recent venous duplex scan performed 03/20/2023. She has been switched to Lovenox 1 mg/kg b.i.d.. She is also being treated for cellulitis. She can be switched to oral anticoagulants such as apixaban or rivaroxaban at the time of discharge. Thank you for the consultation. - Time Spent With Patient Time Spent with Patient (in minutes): 20
--- NOTE | 2023-03-21 14:34 | MHC.CLN ---
NUTRITION CONSULT FOR SKIN INTEGRITY. PATIENT WITH VENOUS STASIS ULCER TO RIGHT ANKLE. DIET=REGULAR. ENSURE BID PROVIDES ADDITIONAL 700 KCALS, 40 G PROTEIN. QUALIFIES NON SEVERE MALNUTRITION IN THE CONTEXT OF CHRONIC ILLNESS. SIGNIFICANT WEIGHT LOSS X ONE YEAR -20%. MILD DEPLETION OF BODY FAT AND MUSCLE MASS NOTED. CONTINUE REGULAR DIET WITH ENSURE SUPPLEMENT. FOLLOW FOR INTAKE. SEE CLINICAL NUTRITION ASSESSMENT 03/21/23.
[2023-03-21 18:55] LABS: INTERNATIONAL NORM RATIO 3.6 (0.9-1.1); Prothrombin Time 43.7 SEC (11.1-13.3)
[2023-03-21] MEDS: Sennosides 8.6 MG TABLET 17.2 MG PO (20:01)
[2023-03-22] VITALS (10 sets, daily range): BP systolic 117–136; BP diastolic 63–73; PULSE 74–100; RESP 18–19; TEMP 36.2–37.3; O2SAT 92–99
[2023-03-22] MEDS: Albuterol Sulfate (0.083%) 2.5 MG/3 ML VIAL.NEB INHALE ×4 (01:40→20:19)
[2023-03-22] MEDS: Morphine Sulfate 4 MG/ML CARTRIDGE 2 MG IVPUSH ×3 (02:04→20:49)
[2023-03-22 06:06] LABS: Alanine Aminotransferase < 5 U/L (0-31); Albumin Level 2.2 g/dL (3.5-5.0); Alkaline Phosphatase 41 U/L (39-117); Anion Gap 8 (12-20); Aspartate Amino Transferase 9 U/L (5-31); Bilirubin Total 0.3 mg/dL (0.0-1.0); Blood Urea Nitrogen 18 mg/dL (9-16); Calcium 8.3 mg/dL (8.4-10.2); Carbon Dioxide 24 mmol/L (22-29); Chloride 109 mmol/L (96-108); Creatinine Clr Calc Pharmacy 49.8; Estimated Glomerular Filt Rate > 60; Glucose Fasting 127 mg/dL (60-99); Potassium 3.4 mmol/L (3.3-5.1); Sodium 138 mmol/L (135-145); Total Protein 4.3 g/dL (6.5-8.0)
[2023-03-22] MEDS: Cholecalciferol (Vitamin D3) 25 MCG TABLET 50 MCG PO (07:45)
[2023-03-22] MEDS: oxyCODONE HCl Immed Release 5 MG TABLET PO ×2 (07:45→14:59)
[2023-03-22] MEDS: Enoxaparin Sodium 60 MG/0.6 ML SYRINGE 50 MG SUBCUT (07:46)
[2023-03-22] MEDS: 0.9 % Sodium Chloride Flush 3 ML SYRINGE IVFLUSH ×2 (07:50→20:52)
[2023-03-22 08:29] LABS: Hematocrit 30.3 % (37.0-47.0); Hemoglobin 9.4 g/dl (12.0-16.0); Mean Corpuscular Hemoglobin 29.6 pg (27.0-33.0); Mean Corpuscular Volume 95.3 fL (80.0-98.0); Platelet Count 187 X10*3/uL (160-400); Red Blood Count 3.18 X10*6/uL (4.20-5.50); Red Cell Distribution Width 15.8 % (11.0-16.0); White Blood Count 11.7 X10*3/uL (4.8-10.8)
[2023-03-22 08:34] LABS: INTERNATIONAL NORM RATIO 3.5 (0.9-1.1); Prothrombin Time 42.7 SEC (11.1-13.3)
[2023-03-22] MEDS: ceFAZolin Sodium/Dextrose,Iso 2 GM/50 ML PIGGYBACK IV ×2 (09:33→20:52)
--- NOTE | 2023-03-22 16:36 | HO.PM.IMPN ---
Subjective Subjective Date of Service: 03/22/23 Interval History: seen and examined this morning follow up for cellulitis, DVT, new afib feeling better, no sob; leg pain improving Review of Systems Review of Systems: Yes all other systems are reviewed and are negative Constitutional Constitutional: Denies chills and Denies fever(s) Cardiovascular Cardiovascular: Denies chest pain Physical Exam Vital Signs: Vital Signs: Last Vital Signs Temp 97.1 F 03/22/23 15:14 Pulse 100 03/22/23 15:26 Resp 18 03/22/23 15:26 BP 117/67 03/22/23 15:14 Pulse Ox 96 03/22/23 15:14 O2 Del Method Room Air 03/22/23 15:14 O2 Flow Rate 3 03/21/23 03:34 Oxygen Flow Rate 2 03/20/23 15:09 BMI result Body Mass Index 18.9 Const: General: cooperative, comfortable, no acute distress, alert and awake Nutritional Appearance: thin Orientation/consciousness: patient oriented x3 Resp: Effort & Inspection: normal respiratory effort, able to speak in complete sentences, no respiratory distress and no use of accessory muscles GI: Inspection: No distended Palpation (GI): Soft to palpation and nontender Skin: Other: right foot swelling with erythema; mild tenderness; no abscess or drainage; small shallow ulceration Neuro: General: patient oriented x3 and CN's II-XI intact bilaterally Objective Data Active Medications Acetaminophen (Acetaminophen Supp 650 Mg Supp.Rect) 650 mg [place] Q6H PRN PRN Reason: Pain, Mild (Pain Scale 1-3) Albuterol Sulfate (Albuterol Sulfate 90 Mcg 8 Gm Inhaler) 2 puff INHALE Q6H PRN PRN Reason: Shortness Of Breath Or Wheezing Albuterol Sulfate (Albuterol Sulfate (0.083%) 2.5 Mg/3 Ml Vial.Neb) 2.5 mg INHALE Q4H PRN PRN Reason: Shortness of Breath/Wheezing Last Admin: 03/22/23 11:52 Dose: 2.5 mg Documented By: CHASTITY Azithromycin (Azithromycin 250 Mg Tablet) 250 mg PO Q48H [facility] Last Admin: 03/21/23 08:44 Dose: 250 mg Documented By: BEATRIZ Cefazolin Sodium/Dextrose (Ancef) 2 gm in 50 mls @ 100 mls/hr IV Q12H [facility] Last Infusion: 03/22/23 10:42 Dose: Infused Documented By: BEATRIZ Lorazepam (Lorazepam 0.5 Mg Tablet) 0.5 mg PO TID PRN PRN Reason: anxiety Morphine Sulfate (Morphine Sulfate 4 Mg/Ml Cartridge) 2 mg IVPUSH Q4H PRN; Protocol PRN Reason: Pain, Severe (Pain Scale 7-10) Last Admin: 03/22/23 13:32 Dose: 2 mg Documented By: BEATRIZ Non-Formulary Medication (Formoterol Fumarate [Perforomist]) 20 mcg INHALE BID@0900,1700 [facility] Ondansetron HCl (Ondansetron Hcl 4 Mg/2 Ml Vial) 4 mg IVPUSH Q8H PRN PRN Reason: Nausea and Vomiting Oxycodone HCl (Oxycodone Hcl Immed Release 5 Mg Tablet) 5 mg PO Q6H PRN PRN Reason: Pain, Severe (Pain Scale 7-10) Last Admin: 03/22/23 14:59 Dose: 5 mg Documented By: BEATRIZ Prednisone (Prednisone 20 Mg Tablet) 20 mg PO Q48H [facility] Last Admin: 03/21/23 08:44 Dose: 20 mg Documented By: BEATRIZ Senna (Sennosides 8.6 Mg Tablet) 17.2 mg PO BEDTIME PRN PRN Reason: Constipation Last Admin: 03/21/23 20:01 Dose: 17.2 mg Documented By: RANDY Sodium Chloride (0.9 % Sodium Chloride Flush 3 Ml Syringe) [address] [facility] Last Admin: 03/22/23 16:36 Dose: Not Given Documented By: BEATRIZ Non-Admin Reason: Previously Administered Vitamin D (Cholecalciferol (Vitamin D3) 25 Mcg Tablet) 50 mcg PO DAILY [facility] Last Admin: 03/22/23 07:45 Dose: 50 mcg Documented By: BEATRIZ Labs 03/22/23 08:22 03/22/23 05:04 Labs: Laboratory Results - last 24 hr 03/21/23 03/22/23 03/22/23 18:36 05:04 08:22 MCV 95.3 MCH 29.6 MCHC 31.0 RDW 15.8 Plt Count 187 MPV 11.0 Absolute Nucleated RBC 0.000 Nucleated RBC % (auto) 0.0 Hold Purple Top SEE NOTE PT 43.7 H 42.7 H INR 3.6 H 3.5 H Anion Gap 8 L Estim Creat Clear Calc 49.8 Estimated GFR > 60 Fasting Glucose 127 H Calcium 8.3 L D Total Bilirubin 0.3 AST 9 ALT < 5 Alkaline Phosphatase 41 Total Protein 4.3 L Albumin 2.2 L Microbiology Microbiology Results: Microbiology 03/20/23 Unknown Urine Culture - Final Urine clean catch - Urine luna top 03/20/23 17:16 Blood Culture - Preliminary Blood - Venous No growth after 24 hours. 03/20/23 16:52 Blood Culture - Preliminary Blood - Venous No growth after 24 hours. Assessment and Plan (1) DVT (deep venous thrombosis): Status: Acute (2) Cellulitis: Status: Acute Plan 78-year-old female with history of bilateral lung cancer s/p multiple resections, chronic hypoxemic respiratory failure on 2-3 L supplemental O2 p.r.n., history of breast cancer s/p chemotherapy and radiation, COPD, history of recurrent pulmonary emboli anticoagulated with Coumadin, and osteoporosis admitted for cellulitis R foot with sepsis and recurrent VTE RLE. Sepsis due to Acute cellulitis R foot continue IV cefazolin, started 03/20 blood cultures negative seen by wound care- see note for full recs Acute versus chronic DVT right lower extremity nonocclusive thrombus in the right popliteal vein seen on US INR still therapeutic at 3.5 coumadin d/c due to possible failure of treatment will stop lovenox as INR still therapeutic follow INR in am seen by hematology - plan for doac on d/c New onset atrial fibrillation-ruled out seen by cardiology - no afib, EKG with sinus rhythms with PACs no afib on telemetry echo obtained - mild to moderate - outpatient follow up Asymptomatic bacteruria urine culture - mixed bacterial conrad elevated troponin trops flat, no chest pain; appears chronic COPD with chronic hypoxemic respiratory failure no acute exacerbation continue supplemental O2 to maintain oximetry >90% continue maintenance inhalers, albuterol p.r.n. continue baseline prednisone and azithromycin every other day history of lung cancer/breast cancer outpatient follow-up with Dr. Eubanks/Dr. Lomas dvt ppx - INR therapeutic DNR/DNI attending - Dr. garcia dispo - TBD will have PT assess Patient requires inpatient stay for management of cellulitis of right foot with sepsis and intractable pain with elevated PCT requiring IV antibiotics and IV narcotics for pain management as well as further evaluation of recurrent VTE having failed Coumadin requiring parental anticoagulation expert consultation Quality Stroke Does the patient have a stroke diagnosis?: No VTE Prior VTE?: Yes VTE Risk Level:: Medical - moderate - high VTE Device Contraindication: Treatment Not Indicated VTE Drug Contraindication: N/A - Med Ordered
[2023-03-23] VITALS (10 sets, daily range): BP systolic 140–150; BP diastolic 68–74; PULSE 81–86; RESP 18; TEMP 36.6–37.4; O2SAT 91–98
[2023-03-23] MEDS: Albuterol Sulfate (0.083%) 2.5 MG/3 ML VIAL.NEB INHALE ×4 (00:03→13:19)
[2023-03-23] MEDS: LORazepam 0.5 MG TABLET PO (01:01)
[2023-03-23] MEDS: oxyCODONE HCl Immed Release 5 MG TABLET PO ×3 (01:01→14:58)
--- NOTE | 2023-03-23 01:03 | PC.NURSE ---
At 0050 pt had a 20 beat of VTach on patient monitor. Pt is asymptomatic and vitals are stable. Dr. Roseanne muse.
[2023-03-23] MEDS: Morphine Sulfate 4 MG/ML CARTRIDGE 2 MG IVPUSH (04:40)
[2023-03-23 08:27] LABS: INTERNATIONAL NORM RATIO 2.3 (0.9-1.1); Prothrombin Time 28.5 SEC (11.1-13.3)
[2023-03-23] MEDS: Cholecalciferol (Vitamin D3) 25 MCG TABLET 50 MCG PO (08:29)
[2023-03-23] MEDS: Azithromycin 250 MG TABLET PO (08:29)
[2023-03-23] MEDS: predniSONE 20 MG TABLET PO (08:29)
[2023-03-23] MEDS: 0.9 % Sodium Chloride Flush 3 ML SYRINGE IVFLUSH (08:34)
[2023-03-23] MEDS: ceFAZolin Sodium/Dextrose,Iso 2 GM/50 ML PIGGYBACK IV (10:15)
--- NOTE | 2023-03-23 11:21 | MHC.CLN ---
F/U PATIENT WITH VENOUS STASIS ULCER TO RIGHT ANKLE. DIET=REGULAR. ENSURE BID PROVIDES ADDITIONAL 700 KCALS, 40 G PROTEIN. INTAKE VARIABLE, 25-100%. CONTINUE REGULAR DIET WITH ENSURE SUPPLEMENT. FOLLOW FOR INTAKE.
--- NOTE | 2023-03-23 13:27 | MHC.CM.PN ---
EMR REVIEWED. PER PA PATIENT IS MEDICALLY CLEARED FOR DC. PHYSICAL THERAPY RECOMMENDING STR. PATIENT 1ST CHOICE IS [facility]. REFERRAL PLACED BUT NOT ACCEPTED, PATIENT DOES NOT MEET LEVEL OF CARE. PT DOES NOT HAVE ANOTHER PREFERENCE. REFERRALS PLACED TO LOCAL SNF'S, BED OFFER FROM [facility]. PT ACCEPTED BED. BLS TRANSPORTATION SCHEDULED FOR 4PM. SON, PATIENT, RN AND PA AWARE. IMM DELIVERED.
--- NOTE | 2023-03-23 13:52 | PM.DS ---
DS: Providers Provider Date of Service: 03/23/23 Date of admission: 03/20/23 21:09 Date of discharge: 03/23/23 Primary care physician: Angel Montiel MD Consults: 03/20/23 21:08 Consult to Hematology / Oncology Routine Consulting Provider: Carmela Lin Reason for consultation: DVT RLE, recurrent PE on coumadin 03/20/23 21:13 Consult to Cardiology Routine Consulting Provider: [facility] Cardiovascular Services Reason for consultation: new onset afib Has provider been notified: Yes 03/21/23 00:06 Consult to Wound Care Routine Reason for consultation: ulcer to right ankle Attending physician on discharge: Lc Rosales Discharging clinician: Cony Collado DS: Diagnosis Discharge Diagnosis (1) DVT (deep venous thrombosis): Status: Acute (2) Cellulitis: Status: Acute DS: Summary Hospital Course Hospital Course: From H&P on day of admission 78-year-old female with history of bilateral lung cancer s/p multiple resections, chronic hypoxemic respiratory failure on 2-3 L supplemental O2 p.r.n., history of breast cancer s/p chemotherapy and radiation, COPD, history of recurrent pulmonary emboli anticoagulated with Coumadin, and osteoporosis presented to the ED via EMS earlier today for evaluation of severe pain in the left foot associated swelling and erythema. She denies any fevers or chills. Denies any pain proximally in the right lower extremity. She reports compliance with her Coumadin. She did have an episode of hemoptysis several months ago and her Coumadin was briefly held but quickly resumed without recurrence of symptoms. She does follow with Dr. Jacques in thoracic surgery. Was previously following with Dr. Lomas in Hematology/Oncology but states now her PCP is managing her Coumadin. She does have a visiting nurse in the home who checks her INR which was 3.1 when last checked so her PCP decreased her Coumadin to 2 mg. She is ambulatory at baseline, but unable to walk today secondary to pain. On arrival, vital signs stable. However did develop fever of 101.3 with tachycardia of 114 on admission. Blood pressure is also noted to be soft on admission. No acute hypoxia. There is a leukocytosis of 17.9. PT 30 6.6, INR 3.0. Renal function baseline, electrolyte levels normal. Initial troponin 24.5, repeat pending. Procalcitonin 2.14. Urinalysis significant for 2+ leukocytes, 3+ blood, negative nitrites, positive urinary sediment, 1+ bacteria. Negative for influenza, COVID-19, RSV. Venous duplex of the right lower extremity shows DVT demonstrated right popliteal vein. Chest x-ray shows chronic appearing postoperative changes but no acute superimposed airspace disease. CT of the right lower extremity negative for any abscess or acute bony abnormality. No soft tissue gas. There is noted to be extensive vascular calcification and prominent varicosities in the superficial, subcutaneous fat. EKG shows atrial fibrillation which appears to be new onset, rate 93 with T-wave inversions in the inferolateral leads. Sepsis due to Acute cellulitis R foot IV cefazolin, started 03/20, complete two more days of po antibiotics. blood cultures negative seen by wound care- Pt follows with [facility] - at time of discharge recommend continued followup with outpt clinic. Last visit with outpt Wound clinic was 03/12/23 and wound collagen gel was continued for topical treatment. Patient was last seen by this contract technical writer in February 2023 during her admission to [facility]. Photo review below shows significant wound bed improvement Acute versus chronic DVT right lower extremity nonocclusive thrombus in the right popliteal vein seen on US. coumadin d/c due to possible failure of treatment. INR down to 2.3 will transition to Eliquis. Did receive two days of lovenox. will need 5 days of loading dose of eliquis 10 mg bid and then 5 mg bid after that. New onset atrial fibrillation-ruled out seen by cardiology - no afib, EKG with sinus rhythms with PACs. no afib on telemetry. echo obtained - mild to moderate - outpatient follow up with cardiology Time Attestation Discharge coordination time: Greater than 30 minutes Quality: Safe Use of Opioids Does Pt have an Active Cancer Diagnosis on the Problem List?: No Quality: Stroke Does the patient have a stroke diagnosis?: No Physical Exam Vital Signs: Vital Signs: Last Vital Signs Temp 98.3 F 03/23/23 07:38 Pulse 81 03/23/23 13:20 Resp 18 03/23/23 13:20 BP 142/72 H 03/23/23 07:38 Pulse Ox 94 03/23/23 07:38 O2 Del Method Room Air 03/23/23 07:38 O2 Flow Rate 1 03/23/23 04:00 Oxygen Flow Rate 2 03/20/23 15:09 BMI result Body Mass Index 18.9 Const: General: cooperative, comfortable, no acute distress, alert and awake Nutritional Appearance: thin Orientation/consciousness: patient oriented x3 Resp: Effort & Inspection: normal respiratory effort, able to speak in complete sentences, no respiratory distress and no use of accessory muscles GI: Inspection: No distended Palpation (GI): Soft to palpation and nontender Skin: Other: right foot swelling with erythema; mild tenderness; no abscess or drainage; small shallow ulceration Neuro: General: patient oriented x3 and CN's II-XI intact bilaterally DS: Data Data Completed and Pending Labs on day of discharge: Laboratory Results - last 24 hr 03/23/23 07:42 Hold Purple Top SEE NOTE PT 28.5 H D INR 2.3 H Preliminary micro results at discharge 03/20/23 17:16 Blood Culture - Preliminary Blood - Venous No growth after 48 hours. 03/20/23 16:52 Blood Culture - Preliminary Blood - Venous No growth after 48 hours. Discharge Plan Discharge Anticipated Discharge Date/Time: 03/23/23 13:45 Patient Disposition: Xfer SNF Discharge Diagnosis: cellulitis DVT Referrals: Lidia Mcguire [Outside] - 1 Day (SHORT TERM REHAB) Angel Montiel MD [Primary Care Provider] - 1 Week Discharge Medications: New Eliquis 5 mg tablet 5 mg PO BID Qty: 40 0RF cefuroxime axetil 500 mg tablet 500 mg PO Q12H 2 Days Qty: 4 0RF oxycodone 5 mg tablet 5 mg PO Q8H PRN (Reason: pain (scale score 7-10)) Qty: 10 0RF Rx Instructions: Partial Fill upon patient request. Continued lorazepam 0.5 mg tablet 0.5 mg PO TID PRN (Reason: anxiety) 30 Days Qty: 90 3RF azithromycin 250 mg tablet 250 mg PO Q OTHER DAY Qty: 45 2RF ipratropium-albuterol 0.5 mg-3 mg(2.5 mg base)/3 mL solution for nebulization 3 ml inhalation BID@1300,2100 formoterol fumarate [Perforomist] 20 mcg/2 mL solution for nebulization 20 mcg inhalation BID@0900,1700 prednisone 20 mg tablet 20 mg PO Q48H albuterol sulfate [Ventolin HFA] 90 mcg/actuation HFA aerosol inhaler 2 puff PO Q6H PRN (Reason: Shortness Of Breath Or Wheezing) cholecalciferol (vitamin D3) 50 mcg (2,000 unit) capsule 50 mcg PO DAILY Discontinued warfarin 2 mg tablet 2 mg PO DAILY oxycodone 10 mg tablet 10 mg PO BID PRN (Reason: Moderate Pain (Scale Score 5-6)) Discharge Orders: Discharge Order (Routine); Ordered 03/23/23 Ordered By: Cony Collado Activity on Discharge: As tolerated Stand Alone Forms: Patient Portal Discharge page Care Plan Goals: see below Health Concerns: RLE DVT and cellulitis Plan of Treatment: two more days of antibiotics for DVT. stop taking coumadin. start taking eliquis - 5 more days of loading dose 10 mg twice daily and then maintenance dose 5 mg twice daily after that no other changes to baseline medications azithromycin and prednisone are chronic related to copd use tylenol when able to minimize use of narcotics, can use ozycodone for severe pain call to schedule follow up appointment with PCP echo showed mild to moderate aortic stenosis, outpatient follow up with cardiology keep leg elevated follow up with wound care clinic Assessment: see discharge summary
== END 2023-03-23 16:57 | disposition skilled nursing facility (03) | DRG 872 ==
LOC: HO.ED 20:07 → HO.EDOVER 21:55 → HO.S3 23:05
PROVIDERS: Hospitalist; Admitting Provider Physician Assistant; Emergency Provider Emergency Medicine; PCP Internal Medicine; Visit Provider Physician Assistant Medical
DX: A41.9 Sepsis, unspecified organism (principal); I82.431 Acute embolism and thrombosis of right popliteal vein; L03.115 Cellulitis of right lower limb; E44.0 Moderate protein-calorie malnutrition; Z68.1 Body mass index [BMI] 19.9 or less, adult; I82.531 Chronic embolism and thrombosis of right popliteal vein; J44.9 Chronic obstructive pulmonary disease, unspecified; L97.519 Non-pressure chronic ulcer of other part of right foot with unspecified severity; I48.91 Unspecified atrial fibrillation; Z90.2 Acquired absence of lung [part of]; Z20.822 Contact with and (suspected) exposure to COVID-19; Z66 Do not resuscitate; Z86.711 Personal history of pulmonary embolism; Z85.3 Personal history of malignant neoplasm of breast; Z85.118 Personal history of other malignant neoplasm of bronchus and lung; Z87.891 Personal history of nicotine dependence; Z79.01 Long term (current) use of anticoagulants; Z79.52 Long term (current) use of systemic steroids; Z79.899 Other long term (current) drug therapy
CPT/HCPCS: 0241U; 36415; 71045; 73701; 80048; 80053; 80076; 81001; 81003; 82550; 83605; 83735; 83880; 84145; 84484; 85025; 85027; 85610; 86850; 86900; 86901; 87040; 87086; 93005; 93306; 93971; 94640; 97162; 97530; 99285; J0690; J1650; J2270; J2543; Q9967

== ENCOUNTER 2023-03-20 21:09 | Outpatient (BNV) | payer MEDICARE, SELFPAY | END 2023-03-21 07:00 | PROVIDERS: Admitting Provider Physician Assistant; Emergency Provider Emergency Medicine; PCP Internal Medicine; Visit Provider Internal Medicine Cardiovascular Disease | DX: I35.0 Nonrheumatic aortic (valve) stenosis (principal) | CPT/HCPCS: 93306 ==

== ENCOUNTER → 2023-03-20 21:09 | Outpatient (BNV) | payer MEDICARE, SELFPAY | PROVIDERS: Admitting Provider Physician Assistant; Emergency Provider Emergency Medicine; Visit Provider Physician Assistant | DX: I82.431 Acute embolism and thrombosis of right popliteal vein (principal); L03.115 Cellulitis of right lower limb | CPT/HCPCS: 99223; 99232; 99233; 99239 ==

== ENCOUNTER → 2023-03-20 21:09 | Outpatient (BNV) | payer MEDICARE, SELFPAY | PROVIDERS: Admitting Provider Physician Assistant; Emergency Provider Emergency Medicine; Visit Provider Internal Medicine Cardiovascular Disease | DX: I82.431 Acute embolism and thrombosis of right popliteal vein (principal); L03.115 Cellulitis of right lower limb; I49.1 Atrial premature depolarization; R94.31 Abnormal electrocardiogram [ECG] [EKG] | CPT/HCPCS: 93010; 99222 ==

== ENCOUNTER → 2023-03-20 21:09 | Outpatient (BNV) | payer MEDICARE, SELFPAY | PROVIDERS: Admitting Provider Physician Assistant; Emergency Provider Emergency Medicine; Visit Provider Internal Medicine | DX: I82.431 Acute embolism and thrombosis of right popliteal vein (principal); L03.115 Cellulitis of right lower limb | CPT/HCPCS: 99222 ==

== ENCOUNTER 2023-04-01 19:36 | Inpatient (IN) | payer MEDICARE, SELFPAY ==
--- NOTE | ~2023-04-01 | XR_ITS ---
EXAMINATION: XR CHEST CLINICAL INFORMATION: Shortness of breath COMPARISON: 04/02/2023 TECHNIQUE: Frontal view of the chest was obtained. FINDINGS: The endotracheal tube and nasogastric tube is been removed. There are still patchy infiltrates at the lung bases. Some of this may be chronic. Upper lungs clear. Suture material is seen in the left upper lung. Heart size borderline with normal caliber pulmonary vessels. There is end-stage arthritic change in both shoulders. XR/XR chest 1V IMPRESSION: Persistent bibasilar infiltrates.
--- NOTE | ~2023-04-01 | XR_ITS ---
EXAMINATION: XR chest 1V CLINICAL INFORMATION: Reason for Exam ETT plcement COMPARISON: 1 day earlier TECHNIQUE: Single portable frontal view. Tubes and lines: Endotracheal tube tip is approximately a 3 cm above katey. Gastric tube passing below the diaphragm, the tip of outside field of view. Lungs and pleura: Crowding of interstitial lung marking at lung bases suggesting probably mild infiltrate/atelectasis. Blunting of left costophrenic angle probably small pleural effusion. Heart and mediastinum: Widened mediastinum, unchanged, exaggerated by AP technique and oblique projection.. Bones/soft tissue: Severe dextroscoliosis. Degenerative arthritis of the shoulders. XR/XR chest 1V IMPRESSION: * ET tube and gastric tube in place properly positioned. * Crowding of interstitial lung markings at lung bases probably mild infiltrate/atelectasis. * Blunting of left costophrenic angle suggesting small pleural effusion.
--- NOTE | ~2023-04-01 | XR_ITS ---
EXAMINATION: XR CHEST CLINICAL INFORMATION: Cough COMPARISON: Chest x-ray 03/20/2023 TECHNIQUE: Frontal view of the chest was obtained. FINDINGS: Lungs are clear without focal airspace consolidation. Hyperlucent upper lobes, consistent with emphysema. No pneumothorax or pleural effusion. Cardiomediastinal silhouette remains unchanged, including its tortuous and rightward coursing descending aorta. Chain sutures are seen in the left upper lobe with associated scarring. Right distal clavicular resection. Chronic deformity of the left distal clavicle. Bilateral rotator cuff injury with high riding humeral heads and associated osteoarthritis. Healing bilateral rib fractures. XR/XR chest 1V IMPRESSION: 1. No acute pulmonary process. 2. Emphysema.
--- NOTE | ~2023-04-01 | CT_ITS ---
EXAMINATION: CT ABDOMEN AND PELVIS WITH CONTRAST CLINICAL INFORMATION: Diverticular disease, pain COMPARISON: Baseline 07/23/2022 TECHNIQUE: Multidetector volumetric images were obtained from the superior aspect of the liver through the pubic symphysis following administration 85 mL of Omnipaque 350 intravenous contrast. Sagittal and coronal reformatted images were obtained on the technologist's workstation. Oral contrast: No This CT examination was performed using dose optimization techniques as appropriate, variously including the following: *Automated exposure control *Adjustment of mA and/or kV according to patient size (this includes techniques or standardized protocols for targeted exams where dose is matched to indication/reason for exam; i.e. extremities or head) *Use of iterative reconstruction technique DLP: 450 mGy-cm FINDINGS: LUNG BASES: Panlobular emphysematous changes. LIVER, GALLBLADDER, AND BILIARY TREE: The liver is normal in size, shape, and attenuation. No focal hepatic lesion or biliary ductal dilatation is present. The gallbladder is unremarkable with no evidence of radiopaque gallstones, gallbladder wall thickening, or obvious pericholecystic inflammatory changes. PANCREAS: Unremarkable. SPLEEN: Unremarkable. ADRENAL GLANDS: Unremarkable. KIDNEYS AND URETERS: The kidneys are normal in size, shape, and attenuation. No hydronephrosis, hydroureter, or calculi seen. No perinephric stranding. BLADDER: Unremarkable. GASTROINTESTINAL TRACT: There is extraluminal air seen within the right mesentery adjacent to the right colon. Right colon is distended to 9 cm. The cecum is relatively medially oriented suggesting a cecal bascule. There is relatively severe diverticular disease within the left colon which is decompressed. There is notable circumferential thickening of the rectum which should be correlated with digital rectal exam. This may be on the basis of a mass lesion versus inflammation. There is moderate distention of the small bowel is well which is fluid-filled measuring up to 2.5 cm. ABDOMINAL WALL: No significant hernia is appreciated. LYMPH NODES: Normal. VASCULAR: Severe atherosclerosis is evident throughout the abdomen. PELVIC VISCERA: Unremarkable. OSSEOUS STRUCTURES: Severe scoliosis. Displaced unfused fracture noted involving the left pubic bones as well as evidence for ORIF of the proximal left femur. Acute deformity. CT/CT abdomen pelvis w IV con IMPRESSION: 1. Extraluminal air within the right mesentery adjacent to the right colon. The right colon is distended to 9 cm. The cecum is relatively medially oriented suggesting a cecal bascule. 2. There is notable circumferential thickening of the rectum which should be correlated with digital rectal exam. This may be on the basis of a mass lesion versus inflammation. 3. There is moderate distention of the small bowel which is fluid-filled measuring up to 2.5 cm. 4. Severe diverticular disease left colon. Fleischner guidelines were followed. Results of extraluminal air called at approximately 1:07 PM on the date of exam.
[2023-04-01 19:43] VITALS: BP 104/74; PULSE 74; O2SAT 96
[2023-04-01 19:54] VITALS: BP 108/73; PULSE 83; RESP 20; TEMP 37.4; O2SAT 94; BMI 22.2
[2023-04-01 20:24] VITALS: BP 93/69; PULSE 104; RESP 18; TEMP 36.6; O2SAT 90
[2023-04-01 20:26] LABS: Basophils Absolute Auto 0.1 X10*3/uL (0.0-0.2); Basophils Percent Auto 0.2 % (0-2); Hematocrit 36.5 % (37.0-47.0); Hemoglobin 11.6 g/dl (12.0-16.0); Imm Gran Abs Auto 0.34 X10*3/uL (0.00-0.03); Imm Gran Pct Auto 1.3 % (0.0-0.4); Lymphocytes Absolute Auto 0.8 X10*3/uL (1.2-4.9); Lymphocytes Percent Auto 3.2 % (20-40); MANUAL DIFF FLAG SCAN; Mean Corpuscular HGB Conc 31.8 g/dl (31.0-35.0); Mean Corpuscular Hemoglobin 29.7 pg (27.0-33.0); Mean Corpuscular Volume 93.6 fL (80.0-98.0); Mean Platelet Volume 9.9 fL (9.4-12.3); Monocytes Absolute Auto 0.9 X10*3/uL (0.1-1.2); Monocytes Percent Auto 3.6 % (2-11); Neutrophils Absolute Auto 23.7 x10*3/uL (2.0-8.3); Neutrophils Percent Auto 91.7 % (45-73); Platelet Count 482 X10*3/uL (160-400); Red Cell Distribution Width 15.8 % (11.0-16.0); SCAN SMEAR FLAG 1; White Blood Count 25.8 X10*3/uL (4.8-10.8)
[2023-04-01 20:30] VITALS: TEMP 38.1
--- NOTE | 2023-04-01 20:37 | MHC.EDTECH ---
patient incontintent of bowel. Pt cleaned and repositioned. VSS
[2023-04-01 20:41] LABS: Alanine Aminotransferase < 5 U/L (0-31); Albumin Level 2.7 g/dL (3.5-5.0); Alkaline Phosphatase 75 U/L (39-117); Anion Gap 14 (12-20); Aspartate Amino Transferase 13 U/L (5-31); Bilirubin Direct 0.2 mg/dL (0.0-0.5); Bilirubin Total 0.6 mg/dL (0.0-1.0); Blood Urea Nitrogen 15 mg/dL (9-16); Calcium 8.6 mg/dL (8.4-10.2); Carbon Dioxide 28 mmol/L (22-29); Chloride 100 mmol/L (96-108); Creatinine Clr Calc Pharmacy 43.3; Estimated Glomerular Filt Rate > 60; Glucose Random 127 mg/dL (60-115); Lipase 6 U/L (8-78); Potassium 4.1 mmol/L (3.3-5.1); Sodium 138 mmol/L (135-145); Total Protein 5.7 g/dL (6.5-8.0)
[2023-04-01 20:57] LABS: SLIDE REVIEW VERIFIED
[2023-04-01 21:03] LABS: Influenza A PCR NEGATIVE (Negative); Influenza B PCR NEGATIVE (Negative); Resp Syncy Virus RNA Qual PCR NEGATIVE (Negative); SARS COV2 PCR INHOUSE NEGATIVE (Negative)
--- NOTE | 2023-04-01 21:16 | ED_ITS ---
HPI - Abdominal Pain General Chief Complaint: Abdominal Pain Stated Complaint: abdominal pain, nausea x2 weeks, 2L O2 Time Seen by Provider: 04/01/23 21:16 Source: patient Mode of arrival: ambulatory Limitations: no limitations History of Present Illness HPI narrative: Patient with History of bilateral lung cancer status post multiple resections chronic hypoxemic respiratory failure on supplemental oxygen history of breast cancer status post chemo and radiation treatment, COPD, recurrent pulmonary emboli on Coumadin, diverticulitis UTI constipation been constipated for last 2 weeks having diffuse abdominal pain for last 2-3 weeks got worse last few days and today was the worst pain which is more in the right lower abdomen feel nauseated were in oral intake feels bloated temperature 100.6 was given enema at a long term and patient still having the loose bowel Related Data Home Medications Medication Instructions Recorded Confirmed cholecalciferol (vitamin D3) 50 50 mcg PO DAILY 06/14/21 03/20/23 mcg (2,000 unit) capsule albuterol sulfate 90 mcg/actuation 2 puff PO Q6H PRN Shortness Of 07/23/22 03/20/23 aerosol inhaler (Ventolin HFA) Breath Or Wheezing formoterol fumarate 20 mcg/2 mL 20 mcg inhalation BID@0900,1700 02/10/23 03/20/23 solution for nebulization (Perforomist) ipratropium 0.5 mg-albuterol 3 mg 3 ml inhalation BID@1300,2100 for 02/10/23 03/20/23 (2.5 mg base)/3 mL nebulization wheezing soln prednisone 20 mg tablet 20 mg PO Q48H copd 03/20/23 03/20/23 Previous Rx's Medication Instructions Recorded lorazepam 0.5 mg tablet 0.5 mg PO TID PRN anxiety 30 days 11/01/22 #90 tabs azithromycin 250 mg tablet 250 mg PO Q OTHER DAY #45 tabs 03/09/23 apixaban 5 mg tablet (Eliquis) 5 mg PO BID #40 tabs 03/23/23 cefuroxime axetil 500 mg tablet 500 mg PO Q12H 2 days #4 tabs 03/23/23 oxycodone 5 mg tablet 5 mg PO Q8H PRN pain (scale score 03/23/23 7-10) #10 tabs Allergies Allergy/AdvReac Type Severity Reaction Status Date / Time No Known Allergies Allergy Verified 04/01/23 20:03 Review of Systems Review of Systems Yes all other systems are reviewed and are negative [facility] Past Medical History Medical History (Updated 04/02/23 @ 01:00 by Leonardo Bai MD) Peripheral vascular disease Perforated viscus Shortness of breath Respiratory failure with hypoxia Anxiety Tubular adenoma of colon (~2014) Cancer of upper lobe of left lung (~2020) Osteoporosis (~2018) History of pulmonary embolism (~2011) History of left breast cancer (~2008) Current use of anticoagulant therapy (~2011) Chronic bronchitis COPD (chronic obstructive pulmonary disease) Cancer of upper lobe of right lung (~2019) Closed intertrochanteric fracture with routine healing (~2019) Surgical History History of colonoscopy (~07/2014) History of tubal ligation History of lung surgery (~05/2020) History of tonsillectomy History of left breast biopsy (~03/2009) History of hip surgery (~11/2019) History of lumpectomy of left breast (~04/2009) History of appendectomy (~09/2012) History of lung surgery (~07/2019) Social History Social History Household Members: Children Housing: House Do you presently have visiting nurse or other home services: Yes (VNA's every other day) Alcohol intake: never Comment: rings appropriately Patient Tobacco Use Status: Former Tobacco user Quit Date: 1996 Years Smoked: 35pyh - quit 1997 Smoked in Last 30 Days: No Second Hand Smoke Exposure: No Use of substances other than those prescribed or required for medical reasons: No Advance Directives: Yes Advance Directives on File: Yes Advance Directives Date on File: 07/25/22 service: No Current occupational status: disabled Physical Exam ED Vital Signs: Vital Signs - 24 hr 04/01/23 19:54 04/01/23 20:24 04/01/23 20:30 Temperature 99.3 F 97.9 F 100.6 F H Pulse Rate 83 104 H Respiratory Rate 20 18 Blood Pressure 108/73 93/69 Pulse Oximetry 94 90 L Oxygen Delivery Method Room Air Room Air Oxygen Flow Rate 04/01/23 21:51 04/01/23 22:36 04/02/23 01:20 Temperature 98.9 F 98.1 F Pulse Rate 93 76 Respiratory Rate 18 18 16 Blood Pressure 108/54 L 115/65 Pulse Oximetry 93 Oxygen Delivery Method Nasal Cannula Oxygen Flow Rate 2.5 04/02/23 01:40 04/02/23 02:20 04/02/23 02:29 Temperature 98.4 F 97.4 F 97.4 F Pulse Rate 89 83 81 Respiratory Rate 18 16 15 Blood Pressure 117/59 L 136/66 140/68 H Pulse Oximetry Oxygen Delivery Method Oxygen Flow Rate 04/02/23 02:46 04/02/23 02:56 Temperature 98.1 F Pulse Rate 82 86 Respiratory Rate 18 14 Blood Pressure 132/59 L Pulse Oximetry Oxygen Delivery Method Oxygen Flow Rate BMI result Body Mass Index 22.2 Appearance: Alert. Oriented X3. No acute distress. Eyes: PERRLA, No Nystagmus ENT: Pharynx normal. Oral Mucosa moist Neck: Normal inspection. Neck supple. CVS: Normal heart rate and rhythm. Pulses normal. Respiratory: No respiratory distress. Equal air entry bilateral, no wheezing/rales/rhonchi Abdomen: Soft gaseous distended tender to touch right lower abdomen with guarding and rebound tenderness. Bowel sounds are present, no mass palpable, no CVA tenderness rectum: Watery brown stool nontender Skin: Skin warm and dry. Normal skin color. Normal skin turgor. Extremities: No lower extremity edema. No calf tenderness Neuro: Oriented X 3. No motor deficit. No sensory deficit.No cerebellar signs , cranial nerves II-XII intact Medical Decision Making Medical Decision Making [facility] Narrative: Patient with acute abdomen with distended right lower with guarding and rebound tenderness CT scan showed extraluminal air within the right sent right colon Distended up to 9 cm. Patient has normal lactic acid level 1.3 2315:Case discussed with surgeon Dr. Bai will come and see the patient Patient was given 2 units of FFP vitamin K for reversal Coumadin effect repeat INR after 1 unit of FFP was 1.6 Differential Diagnosis Differential Diagnoses: The differential diagnosis associated with the presentation includes Small bowel obstruction/ bowel perforation /diverticulitis/volvulus Admission/Observation Consideration of admission/observation: Escalation of care including admission/observation considered Consult Healthcare Provider Management of the patient was discussed with: High Pressure Cleaner Surgeon Dr. Bai Lab Data [facility] Lab Attestation statement: I reviewed the patient's lab results. 12/24/23 20:21 04/01/23 20:21 Labs: Lab Results 04/01/23 04/01/23 04/02/23 Range/Units 20:21 21:44 00:22 WBC 25.8 H (4.8-10.8) X10*3/uL RBC 3.90 L D (4.20-5.50) X10*6/uL Hgb 11.6 L D (12.0-16.0) g/dl Hct 36.5 L D (37.0-47.0) % MCV 93.6 (80.0-98.0) fL MCH 29.7 (27.0-33.0) pg MCHC 31.8 (31.0-35.0) g/dl RDW 15.8 (11.0-16.0) % Plt Count 482 H D (160-400) X10*3/uL MPV 9.9 (9.4-12.3) fL Immature Gran % (Auto) 1.3 H (0.0-0.4) % Neut % (Auto) 91.7 H (45-73) % Lymph % (Auto) 3.2 L (20-40) % Noble % (Auto) 3.6 (2-11) % Eos % (Auto) 0.0 (0-4) % Baso % (Auto) 0.2 (0-2) % Lymph # (Auto) 0.8 L (1.2-4.9) X10*3/uL Noble # (Auto) 0.9 (0.1-1.2) X10*3/uL Eos # (Auto) 0.0 (0.0-0.4) X10*3/uL Baso # (Auto) 0.1 (0.0-0.2) X10*3/uL Abs Immat Gran (auto) 0.34 H (0.00-0.03) X10*3/uL Absolute Neuts (auto) 23.7 H (2.0-8.3) x10*3/uL Absolute Nucleated RBC 0.000 (0.0-0.012) X10*3/uL Nucleated RBC % (auto) 0.0 (0.0-0.2) /100WBC Smear Tech's Comments VERIFIED PT (11.1-13.3) SEC INR (0.9-1.1) Sodium 138 (135-145) mmol/L Potassium 4.1 D (3.3-5.1) mmol/L Chloride 100 (96-108) mmol/L Carbon Dioxide 28 (22-29) mmol/L Anion Gap 14 (12-20) BUN 15 (9-16) mg/dL Creatinine 0.82 (0.5-1.4) mg/dL Estim Creat Clear Calc 43.3 Estimated GFR > 60 Random Glucose 127 H (60-115) mg/dL Lactic Acid 1.3 (0.5-2.0) mmol/L Calcium 8.6 (8.4-10.2) mg/dL Total Bilirubin 0.6 (0.0-1.0) mg/dL Direct Bilirubin 0.2 (0.0-0.5) mg/dL AST 13 (5-31) U/L ALT < 5 (0-31) U/L Alkaline Phosphatase 75 (39-117) U/L Total Protein 5.7 L (6.5-8.0) g/dL Albumin 2.7 L (3.5-5.0) g/dL Lipase 6 L (8-78) U/L Influenza Type A (PCR) NEGATIVE (Negative) Influenza Type B (PCR) NEGATIVE (Negative) RSV RNA Qual (PCR) NEGATIVE (Negative) SARS-CoV-2 RNA (RT-PCR) NEGATIVE (Negative) Blood Type O Positive Antibody Screen NEGATIVE 04/02/23 Range/Units 02:45 WBC (4.8-10.8) X10*3/uL RBC (4.20-5.50) X10*6/uL Hgb (12.0-16.0) g/dl Hct (37.0-47.0) % MCV (80.0-98.0) fL MCH (27.0-33.0) pg MCHC (31.0-35.0) g/dl RDW (11.0-16.0) % Plt Count (160-400) X10*3/uL MPV (9.4-12.3) fL Immature Gran % (Auto) (0.0-0.4) % Neut % (Auto) (45-73) % Lymph % (Auto) (20-40) % Noble % (Auto) (2-11) % Eos % (Auto) (0-4) % Baso % (Auto) (0-2) % Lymph # (Auto) (1.2-4.9) X10*3/uL Noble # (Auto) (0.1-1.2) X10*3/uL Eos # (Auto) (0.0-0.4) X10*3/uL Baso # (Auto) (0.0-0.2) X10*3/uL Abs Immat Gran (auto) (0.00-0.03) X10*3/uL Absolute Neuts (auto) (2.0-8.3) x10*3/uL Absolute Nucleated RBC (0.0-0.012) X10*3/uL Nucleated RBC % (auto) (0.0-0.2) /100WBC Smear Tech's Comments PT 19.8 H D (11.1-13.3) SEC INR 1.6 H (0.9-1.1) Sodium (135-145) mmol/L Potassium (3.3-5.1) mmol/L Chloride (96-108) mmol/L Carbon Dioxide (22-29) mmol/L Anion Gap (12-20) BUN (9-16) mg/dL Creatinine (0.5-1.4) mg/dL Estim Creat Clear Calc Estimated GFR Random Glucose (60-115) mg/dL Lactic Acid (0.5-2.0) mmol/L Calcium (8.4-10.2) mg/dL Total Bilirubin (0.0-1.0) mg/dL Direct Bilirubin (0.0-0.5) mg/dL AST (5-31) U/L ALT (0-31) U/L Alkaline Phosphatase (39-117) U/L Total Protein (6.5-8.0) g/dL Albumin (3.5-5.0) g/dL Lipase (8-78) U/L Influenza Type A (PCR) (Negative) Influenza Type B (PCR) (Negative) RSV RNA Qual (PCR) (Negative) SARS-CoV-2 RNA (RT-PCR) (Negative) Blood Type Antibody Screen Independent Interpretation I performed an independent interpretation of an: EKG, Plain X-Ray and CT Scan Interpretation: Normal sinus rhythm heart rate 86 beats per minute normal interval normal axis T inversion in lateral leads no acute ischemia Radiology Impression Discussion of test interpretation with radiology: I have reviewed the radiologist's reading. Radiologist Impression: CT/CT abdomen pelvis w IV con IMPRESSION: 1. Extraluminal air within the right mesentery adjacent to the right colon. The right colon is distended to 9 cm. The cecum is relatively medially oriented suggesting a cecal bascule. 2. There is notable circumferential thickening of the rectum which should be correlated with digital rectal exam. This may be on the basis of a mass lesion versus inflammation. 3. There is moderate distention of the small bowel which is fluid-filled measuring up to 2.5 cm. 4. Severe diverticular disease left colon. Medications Administered Discontinued Medications Generic Name Dose Route Start Last Admin Trade Name Freq PRN Reason Stop Dose Admin Albuterol/Ipratropium 3 ml 04/02/23 02:26 04/02/23 02:55 Albuterol/Iprat 2.5/0.5mg 3 Ml Ampul.Neb INHALE 04/02/23 02:27 3 ml ONCE ONE Administration Sodium Chloride 1,000 mls @ 999 mls/hr 04/01/23 21:23 04/01/23 22:45 Ns IV 04/01/23 22:23 Infused .Q1H1M ONE Infusion Piperacillin Sod/Tazobactam 50 mls @ 100 mls/hr 04/01/23 21:23 04/01/23 22:46 Sod 3.375 gm/ Sodium Chloride IV 04/01/23 21:52 Infused ONCE ONE Infusion Sodium Chloride 100 mls @ 100 mls/hr 04/02/23 00:11 04/02/23 02:50 Ns IV 04/02/23 01:10 Infused ONCE ONE Infusion Sodium Chloride 100 mls @ 100 mls/hr 04/02/23 00:11 04/02/23 02:50 Ns IV 04/02/23 01:10 100 mls/hr ONCE ONE Administration Phytonadione 5 mg/ Sodium 50.5 mls @ 50.5 mls/hr 04/02/23 00:11 04/02/23 01:42 Chloride IV 04/02/23 01:10 Infused ONCE ONE Infusion Sodium Chloride 1,000 mls @ 999 mls/hr 04/02/23 01:11 04/02/23 01:45 Ns IV 04/02/23 02:11 999 mls/hr .Q1H1M ONE Administration Iohexol 100 ml 04/01/23 22:28 04/01/23 22:28 Iohexol 350 Mg/Ml 100 Ml Infus..Btl IV 04/01/23 22:29 85 ml ONCE ONE Administration Morphine Sulfate 4 mg 04/01/23 21:30 04/01/23 21:51 Morphine Sulfate 4 Mg/Ml Cartridge IVPUSH 04/01/23 21:31 4 mg ONCE ONE Administration Protocol Ondansetron HCl 4 mg 04/01/23 21:30 04/01/23 21:51 Ondansetron Hcl 4 Mg/2 Ml Vial IVPUSH 04/01/23 21:31 4 mg ONCE ONE Administration Critical Care Time Critical Care Time Critical Care Time: Yes Total Critical Care Time: 60 Attestation: The patient was critically ill with a high probability of imminent or life threatening deterioration. I spent greater than 65 minutes of discontinuous time evaluating the patient,delivering critical care at the bedside, discussing and evaluating pertinent data with consultants. Critical care time does not include time spent performing separately billable procedures or teaching. Total time spent performing critical care was 60 minutes. Discharge Plan Discharge Clinical Impression: Nontraumatic perforation of large intestine Patient Disposition: Admitted As Inpatient
[2023-04-01] MEDS: 0.9 % Sodium Chloride 1,000 ML 999 ML IV (21:44)
[2023-04-01 21:51] VITALS: RESP 18
[2023-04-01] MEDS: Morphine Sulfate 4 MG/ML CARTRIDGE IVPUSH (21:51)
[2023-04-01] MEDS: ondansetron HCL 4 MG/2 ML VIAL IVPUSH (21:51)
[2023-04-01 21:59] LABS: Lactic Acid 1.3 mmol/L (0.5-2.0)
[2023-04-01] MEDS: Piperacillin Sodium/Tazobactam 3.375 GM in 0.9 % Sodium Chloride 50 ML IV (22:11)
[2023-04-01] MEDS: iohexoL 350 MG/ML 100 ML INFUS..BTL IV (22:28)
[2023-04-01 22:36] VITALS: BP 108/54; PULSE 93; RESP 18; TEMP 37.2; O2SAT 93
--- NOTE | 2023-04-01 23:23 | ECG_ITS ---
Test Reason : PRE-OP Blood Pressure : / mmHG Vent. Rate : 086 BPM Atrial Rate : 086 BPM P-R Int : 158 ms QRS Dur : 066 ms QT Int : 420 ms P-R-T Axes : 078 -36 -24 degrees QTc Int : 502 ms Normal sinus rhythm Left axis deviation T wave abnormality, consider anterolateral ischemia Abnormal ECG When compared with ECG of 20-MAR-2023 17:49, Nonspecific T wave abnormality, worse in Inferior leads T wave inversion less evident in Lateral leads Referred By: Percy Gillis Electronically Signed By:JOHN RECINOS MD
[2023-04-02] VITALS (39 sets, daily range): BP systolic 79–162; BP diastolic 45–93; PULSE 64–89; RESP 13–19; TEMP 34.4–37.7; O2SAT 00–100
--- NOTE | 2023-04-02 00:06 | P.HPGS_ITS ---
History of Present Illness History of Present Illness Date of Service: 04/05/23 Chief complaint: abdominal pain, nausea x2 weeks, 2L O2 Narrative: Blessing Nails is a 78 year old female here in the ED for abdominal pain. She says she has had this for 2-3 weeks. She has been in the NH and she felt today her abdominal pain had worsened. She therefore decided to come to the ED. She says she had been getting enemas in the NH and she blames this abdominal pain on the enema, stating that they have been overdoing this. She has a hx of lung cancer on both sides. She had robotic apical segmentectomy for Stage 1 lung cancer, and wedge resection for the left upper lobe in May 2020. She has chronic shortness of breath and is on O2 supplementation. She has a known hx of advanced COPD with emphysema secondary to many years of smoking. She states she has been in a halfway because she has been unable to walk for long periods of time because of her chronic foot pain, R>L from neuropathy. She is on anticoagulation with Coumadin due to a hx of DVT. Review of Systems Constitutional: Constitutional: Denies chills and Denies fever(s) Cardiovascular: Cardiovascular: Reports dyspnea, Reports dyspnea on exertion and Reports orthopnea Respiratory: Respiratory: Reports dyspnea and Reports dyspnea on exertion Gastrointestinal: Gastrointestinal: Reports constipation Genitourinary: Genitourinary: Denies difficulty voiding PMFSH Past Medical History Medical History (Updated 04/02/23 @ 01:00 by Leonardo Bai MD) Peripheral vascular disease Perforated viscus Shortness of breath Respiratory failure with hypoxia Anxiety Tubular adenoma of colon (~2014) Cancer of upper lobe of left lung (~2020) Osteoporosis (~2018) History of pulmonary embolism (~2011) History of left breast cancer (~2008) Current use of anticoagulant therapy (~2011) Chronic bronchitis COPD (chronic obstructive pulmonary disease) Cancer of upper lobe of right lung (~2019) Closed intertrochanteric fracture with routine healing (~2019) Surgical History Surgical History (Updated 04/03/23 @ 08:42 by Marquita Lopez PA-C) History of colonoscopy (~07/2014) History of tubal ligation History of lung surgery (~05/2020) History of tonsillectomy History of left breast biopsy (~03/2009) History of hip surgery (~11/2019) History of lumpectomy of left breast (~04/2009) History of appendectomy (~09/2012) History of lung surgery (~07/2019) Social History Social History Household Members: Unknown / Unable to assess Housing: Unknown / Unable to assess Do you presently have visiting nurse or other home services: Yes (VNA's every other day) Unable to assess alcohol history related to: Unable to respond Alcohol intake: never Comment: intubated/bilateral wrist restraints for airway safety Patient Tobacco Use Status: Former Tobacco user Quit Date: 1996 Years Smoked: 35pyh - quit 1997 Second Hand Smoke Exposure: No Advance Directives Date on File: 07/25/22 service: No Current occupational status: disabled [employer] Allergies Allergy/AdvReac Type Severity Reaction Status Date / Time No Known Allergies Allergy Verified 04/01/23 20:03 Home Medications Medication Instructions Recorded Confirmed Last Taken Type albuterol sulfate 90 mcg/actuation 2 puff PO Q6H PRN Shortness Of 07/23/22 04/02/23 Unknown History aerosol inhaler (Ventolin HFA) Breath Or Wheezing formoterol fumarate 20 mcg/2 mL 20 mcg inhalation BID@0900,1700 02/10/23 04/02/23 02/09/23 History solution for nebulization (Perforomist) ipratropium 0.5 mg-albuterol 3 mg 3 ml inhalation BID@1300,2100 for 02/10/23 04/02/23 02/09/23 History (2.5 mg base)/3 mL nebulization wheezing soln oxycodone 5 mg tablet 5 mg PO BID PRN pain (scale score 04/02/23 04/02/23 Unknown History 7-10) warfarin 2 mg tablet 2 mg PO DAILY 04/02/23 04/02/23 Unknown History Physical Exam Vital Signs: Vital Signs: Last Vital Signs Temp 98.9 F 04/01/23 22:36 Pulse 93 04/01/23 22:36 Resp 18 04/01/23 22:36 BP 108/54 L 04/01/23 22:36 Pulse Ox 93 04/01/23 22:36 O2 Del Method Nasal Cannula 04/01/23 22:36 O2 Flow Rate 2.5 04/01/23 22:36 BMI result Body Mass Index 22.2 Const: Other: short pf breath, with cough Resp: Other: short of breath Effort & Inspection: Actively coughing Auscultation: rhonchi and wheezes Cardio: Rate: regular rate GI: Palpation (GI): Soft to palpation and Tenderness to palpation present (GI) (very tender on right side) Results Results Labs: Short CBC 04/01/23 Range/Units 20:21 WBC 25.8 H (4.8-10.8) X10*3/uL Hgb 11.6 L D (12.0-16.0) g/dl Hct 36.5 L D (37.0-47.0) % Plt Count 482 H D (160-400) X10*3/uL BMP 04/01/23 20:21 Sodium 138 Potassium 4.1 D Chloride 100 Carbon Dioxide 28 BUN 15 Creatinine 0.82 Calcium 8.6 Liver Function 04/01/23 Range/Units 20:21 Total Bilirubin 0.6 (0.0-1.0) mg/dL Direct Bilirubin 0.2 (0.0-0.5) mg/dL AST 13 (5-31) U/L ALT < 5 (0-31) U/L Alkaline Phosphatase 75 (39-117) U/L Albumin 2.7 L (3.5-5.0) g/dL Assessment and Plan (1) Perforated viscus: Status: Acute She came in because of abdominal pain and her CT shows extraluminal area along the right colon. I had a long discussion with her about the need for emergency laparotomy possible resection and need for a stoma.I explained the technqiue of planned procedure. I reviewed the risks including but not limited to bleeding, infections, bowel injury, AK, pneumonia, stroke, as well as the benefits and alternatives. She understands she does present with signficant perioperative risks because of her advanced COPD, poor pulmonary reserve,and poor baseline level of function. She is aware that she may need to be on the ventilator for a prolonged period of time Her daughter Erlinda who is in [place] was involved with the discussion. She understands that her mother has significant perioperative risks, including the risk of from the procedure. However, with a perforation in the viscus, she may end up being septic and progressively worsen. We will have to correct her coagulopathy from Coumadin with Vit K and FFPs. She also has peripheral vascular disease and has had chronic pain on both lower legs. She is still able to ambulate with a cane although she mostly says in bed or on a chair nowadays. After multiple prolonged discussions, she says she wants to go ahead with surgery at this time. Etiology of her perforated viscus is uncertain, but she has a very distended cecum appearing like a bascule. Perforation may be secondary to increased intraluminal pressure in this area. The patient and her daughter understand that she has very poor pulmonary reserv e. Quality Stroke Does the patient have a stroke diagnosis?: No VTE Prior VTE?: No VTE Risk Level:: Medical - moderate - high VTE Device Contraindication: N/A - Device Ordered VTE Drug Contraindication: Treatment Not Indicated Procedures Date of Service Date of Service: 04/05/23
[2023-04-02] MEDS: Phytonadione (Vit K1) 5 MG in 0.9 % Sodium Chloride 50 ML 50.5 MG IV (00:32)
--- NOTE | 2023-04-02 00:40 | HO.ANESPROP2 ---
HPI - Anesthesia Eval Consult details Narrative: perforated bowel PMFSH Active Problems Active Problems: All Active Problems (Updated 04/02/23 @ 00:24 by Leonardo Bai MD) Perforated viscus (Acute) Nontraumatic perforation of large intestine (Acute) Sepsis (Acute) DVT (deep venous thrombosis) (Acute) Cellulitis (Acute) Trochanteric bursitis, left hip (Acute) Rotator cuff arthropathy of left shoulder (Acute) Rotator cuff arthropathy of right shoulder (Acute) Pubic ramus fracture (Acute) Respiratory failure with hypoxia (Acute) Cancer of upper lobe of left lung (Acute ~2020) Cancer of upper lobe of right lung (Acute ~2019) Pulmonary nodule (Acute) Chronic bronchitis (Acute) Current use of anticoagulant therapy (Acute ~2011) Anxiety (Acute) Past Medical History Medical History (Updated 04/02/23 @ 00:24 by Leonardo Bai MD) Perforated viscus Shortness of breath Respiratory failure with hypoxia Anxiety Tubular adenoma of colon (~2014) Cancer of upper lobe of left lung (~2020) Osteoporosis (~2018) History of pulmonary embolism (~2011) History of left breast cancer (~2008) Current use of anticoagulant therapy (~2011) Chronic bronchitis COPD (chronic obstructive pulmonary disease) Cancer of upper lobe of right lung (~2019) Closed intertrochanteric fracture with routine healing (~2019) Family History Family history of problems with anesthesia: No Surgical History Surgical History History of colonoscopy (~07/2014) History of tubal ligation History of lung surgery (~05/2020) History of tonsillectomy History of left breast biopsy (~03/2009) History of hip surgery (~11/2019) History of lumpectomy of left breast (~04/2009) History of appendectomy (~09/2012) History of lung surgery (~07/2019) History of Problems with Anesthesia: No Social History Social History Household Members: Children Housing: House Do you presently have visiting nurse or other home services: Yes (VNA's every other day) Alcohol intake: never Comment: rings appropriately Patient Tobacco Use Status: Former Tobacco user Quit Date: 1996 Years Smoked: 35pyh - quit 1997 Second Hand Smoke Exposure: No Advance Directives: Yes Advance Directives on File: Yes Advance Directives Date on File: 07/25/22 service: No Current occupational status: disabled Meds Allergies Allergy/AdvReac Type Severity Reaction Status Date / Time No Known Allergies Allergy Verified 04/01/23 20:03 Active Medications: Current Medications Sodium Chloride (Ns) 100 mls @ 100 mls/hr IV ONCE ONE Stop: 04/02/23 01:10 Sodium Chloride (Ns) 100 mls @ 100 mls/hr IV ONCE ONE Stop: 04/02/23 01:10 Phytonadione 5 mg/ Sodium (Chloride) 50.5 mls @ 50.5 mls/hr IV ONCE ONE Stop: 04/02/23 01:10 Home Medications Medication Instructions Recorded Confirmed Last Taken Type cholecalciferol (vitamin D3) 50 50 mcg PO DAILY 06/14/21 03/20/23 02/09/23 History mcg (2,000 unit) capsule albuterol sulfate 90 mcg/actuation 2 puff PO Q6H PRN Shortness Of 07/23/22 03/20/23 Unknown History aerosol inhaler (Ventolin HFA) Breath Or Wheezing formoterol fumarate 20 mcg/2 mL 20 mcg inhalation BID@0900,1700 02/10/23 03/20/23 02/09/23 History solution for nebulization (Perforomist) ipratropium 0.5 mg-albuterol 3 mg 3 ml inhalation BID@1300,2100 for 02/10/23 03/20/23 02/09/23 History (2.5 mg base)/3 mL nebulization wheezing soln prednisone 20 mg tablet 20 mg PO Q48H copd 03/20/23 03/20/23 Unknown History Exam Height,Weight and Vital Signs: Height 5 ft 2 in Weight 55 kg Last Vital Signs Temp 98.9 F 04/01/23 22:36 Pulse 93 04/01/23 22:36 Resp 18 04/01/23 22:36 BP 108/54 L 04/01/23 22:36 Pulse Ox 93 04/01/23 22:36 O2 Del Method Nasal Cannula 04/01/23 22:36 O2 Flow Rate 2.5 04/01/23 22:36 Pertinent Lab Results Pertinent Lab Results: Laboratory Tests 04/01/23 04/01/23 20:21 21:44 WBC 25.8 H RBC 3.90 L D Hgb 11.6 L D Hct 36.5 L D MCV 93.6 MCH 29.7 MCHC 31.8 RDW 15.8 Plt Count 482 H D MPV 9.9 Immature Gran % (Auto) 1.3 H Neut % (Auto) 91.7 H Lymph % (Auto) 3.2 L [place] % (Auto) 3.6 Eos % (Auto) 0.0 Baso % (Auto) 0.2 Lymph # (Auto) 0.8 L [place] # (Auto) 0.9 Eos # (Auto) 0.0 Baso # (Auto) 0.1 Abs Immat Gran (auto) 0.34 H Absolute Neuts (auto) 23.7 H Absolute Nucleated RBC 0.000 Nucleated RBC % (auto) 0.0 Smear Tech's Comments VERIFIED Sodium 138 Potassium 4.1 D Chloride 100 Carbon Dioxide 28 Anion Gap 14 BUN 15 Creatinine 0.82 Estim Creat Clear Calc 43.3 Estimated GFR > 60 Random Glucose 127 H Lactic Acid 1.3 Calcium 8.6 Total Bilirubin 0.6 Direct Bilirubin 0.2 AST 13 ALT < 5 Alkaline Phosphatase 75 Total Protein 5.7 L Albumin 2.7 L Lipase 6 L Influenza Type A (PCR) NEGATIVE Influenza Type B (PCR) NEGATIVE RSV RNA Qual (PCR) NEGATIVE SARS-CoV-2 RNA (RT-PCR) NEGATIVE Airway Mallampati Class: II TM Dist: >3cm Neck ROM: Full Assessment and Plan Assessment Anesthesia Assessment: Anesthesia Plan Discussed and Chart Reviewed Final Anesthetic Review Family History of Problems with Anesthesia: No History of Problems with Anesthesia: No NPO: No ASA Class: IV and Emergency Final Preanesthetic Review: No Changes in Pt Med Stat, Meds/Allgs Chart Reviewed, Consent Obtained/Reviewed and Anes Risks/Benef Reviewed Patient Risk: High Procedure Risk: High Anesthetic Plan Anesthetic Plan: GA Disposition: Inp. Admit - ICU
--- NOTE | 2023-04-02 01:30 | PC.NURSE ---
Pt A&Ox3, reports intermittent increasing right sided ABD pain x 2 weeks, reports last BM was 1 week ago and received enema and having BM today at 5:30 pm. Hypoactive bowel sounds, right quadrant tenderness, Pt has brown watery stool, Pt reports uncontrolled BM.
[2023-04-02] MEDS: 0.9 % Sodium Chloride 1,000 ML 999 ML IV (01:45)
[2023-04-02] MEDS: Albuterol/Iprat 2.5/0.5MG 3 ML AMPUL.NEB INHALE ×5 (02:55→18:48)
--- NOTE | 2023-04-02 02:56 | PC.NURSE ---
per Dr. Gillis FFP to be given at faster rate. Pt requesting breathing tx. RT at bedside.
[2023-04-02 03:00] LABS: INTERNATIONAL NORM RATIO 1.6 (0.9-1.1); Prothrombin Time 19.8 SEC (11.1-13.3)
--- NOTE | 2023-04-02 03:42 | PM.EVENT ---
Event Note Date of Service: 04/02/23 Event Note: INR now at 1.6 another unit of FFP running will proceed with laparotomy, likely bowel resection, stoma pt has DNR-DNI order in effect - to be suspended for surgery Time Spent With Patient Time: Total time managing care of this patient today ____ minutes.
[2023-04-02 04:39] LABS: Appearance Urine Turbid; Color Urine Dark Yellow; Glucose Urine UA Negative (Negative); Leukocyte Esterase Urine Trace (Negative); Nitrite Urine Negative (Negative); Specific Gravity - Urine >= 1.030 (1.005-1.025); UMIC TRIGGER UACC YES; Urine Blood Large (3+) (Negative); Urine Ketones Negative (Negative); Urine Protein 30 (1+) mg/dL (Neg-Trace)
--- NOTE | 2023-04-02 04:42 | PC.NURSE ---
Incontinent care provided, Pt had a total of five watery stool, coccyx red. Pt has very sensitive skin, multiple bruising all over body noted. Lower extremity redness with swelling to right leg. Upon taking bandage off, skin tear noted to left upper arm.
[2023-04-02 04:49] LABS: Bacteria Urine 4+ (None Seen); Hyaline Casts Urine 0-2 /LPF (0-2); RBC Urine >20 /HPF (0-2); UACC Culture Trigger YES; WBC Urine 21-50 /HPF (0-5)
--- NOTE | 2023-04-02 04:53 | PC.NURSE ---
RN to RN report given to Jamir Davila transported to OR.
--- NOTE | 2023-04-02 06:39 | W.PM.OPN ---
Operative Note Operative Note Date of Service: 04/02/23 Narrative: Preop diagnosis: perforated viscus, pneumoperitoneum Postop diagnosis: the same, with cecal bascule, markedly distended, with inflammatory changes, occasional diverticuli in right colon, unable to identify any obvious perforation Procedure: laparotomy, right colon resection up to proixmal transverse colon, end-ileostomy, mucus fistula from the transverse colon stump Surgeon: Leonardo Bai MD The patient is an 78-year-old female with multiple medical problems including advanced COPD, history of lung resection x2, okay for the ER last night because of worsening abdominal pain on the right side. She had a CAT scan showing extraluminal air along the right colon and its mesentery, along with what appeared to be a very distended cecum consistent with the cecal bascule. She also had significant leukocytosis. She was tender on the right side so I explained to her that it would be best to proceed with colon resection despite her multiple comorbidities. She understood the technique of the planned procedure including stoma, as well as the risks, benefits, and alternatives. She understood that she had significant perioperative risks including , and she wanted to proceed. Her daughter Erlinda was involved with the discussion. The patient was on Coumadin with an INR of 2.5 so she had to be given FFP and vitamin K before proceeding with surgery. She was then brought to the operating room placed supine under general anesthesia via endotracheal tube. Jaeger catheter reinserted. She was receiving Zosyn ordered as scheduled I made a generous incision using blade number 10. This was carried down through the full-thickness of the skin subcutaneous fat until the peritoneum was entered. Tractors were applied. The cecum was markedly distended and folded on itself consistent with a bascule. There was note of significant inflammatory changes on this entire cecum. There was no obvious stool spillage. I proceeded to mobilize the cecum and right colon by dividing the ligamentous attachments along the white line of Toldt. This part of the procedure was achieved with some difficulty in view of the very distended cecum. Eventually I was able to mobilize this right colon and exposed this to the transverse colon. There was note of significant inflammatory changes in the cecum and right colon. I examined this carefully but I could not identify any obvious perforation. I proceeded to examine this all way to the transverse colon. The proximal transverse colon appeared to be noninflamed, supple, without erythema. There was no evidence of any inflammatory process in the left colon or the pelvis. In view of this cecal bascule along with inflammatory changes and the free air seen on CT scan, I decided that it would be best to proceed with a right colon resection. I felt that in view of the uncertainty of the etiology, along with the long history of constipation, would best to just proceed with an ileostomy mucous fistula without and primary anastomosis I chose my point of transection in the distal ileum about 10 cm from the ileocecal valve. I created a mesenteric window and divided this with a SCOT 60 mm stapler. I proceeded to do the same on a healthy-looking segment of the proximal transverse colon. This was divided with a SCOT 60 mm stapler as well I then proceeded to mobilize more of the right colon by dividing more of the filamentous attachments until I was able to thin out the entire mesentery. I then used the LigaSure to divide the mesentery close to the colon wall from both proximal and distal until was able to narrow this down to the ileocecal pedicle. I used the LigaSure as well for the pedicle and this achieved good hemostasis The entire right colon was starting from the terminal ileum all the way to the hepatic flexure was sent as a specimen. Again, examination of this specimen did not show any obvious perforation. there were no other inflamed areas of the transverse colon nor the left colon on examination. The CT scan images did suggest that the undergoing process would be in the right colon or cecum as this is where the free air was seen. I then proceeded to create the stoma opening on right lower quadrant which I had previously marked. I excise that this could piece of skin using a blade 10. I dissected down to the fascia. I incised the fascia with electrocautery and did muscle-splitting of the rectus fibers. I pulled up the ileal stump through this opening.I transected the staple line and matured the stoma by placing a circumferential row of full-thickness Polysorb 3-0 sutures through the wall of the ileum to the subdermal layer I also created a mucous fistula from the stump of the proximal transverse colon. I excised a small discoid piece of skin did muscle-splitting and pulled up the apex of the staple line. I did an enterotomy on the apex of the staple line using Sawant scissors. I proceeded to apply full-thickness Polysorb 3-0 sutures the wall of the open area of the proximal transverse colon to the subdermal layer to create this mucous fistula. I then examined the peritoneal cavity. There was no twisting of the ileostomy. There was no bleeding nor any enteric contents Once hemostasis was confirmed, I proceeded to then copiously irrigate. We had changed gloves I closed the fascia with running Maxon 1 stitch. Skin closure was achieved with skin radha. I infiltrated all incisions with Marcaine 0.5% for most of a SCOT This stoma appliance as well as dressings were applied. The procedure was completed The patient tolerated the procedure well. There were no immediate complications. Initial final counts of sponges and instruments were correct. Estimated blood loss was about 50 cc The patient was then kept intubated and transferred
--- NOTE | 2023-04-02 07:04 | PM.EVENT ---
Event Note Date of Service: 04/02/23 Event Note: Patient now in ICU postop Remains on ventilator Hemodynamically stable Good urine output Dressings dry Daughter Erlinda updated at [phone]. She is on her way from [place] Case discussed with ICU staff Vent management Pain management Stoma care - she has an end ileostomy and mucous fistula from the proximal transverse colon Hold anticoagulation for now Time Spent With Patient Time: Total time managing care of this patient today ____ minutes.
[2023-04-02] MEDS: dexmedeTOMIDidine HCL/NS 400 MCG/100 ML INFUS..BTL 6.88 MCG IVCONT ×2 (07:10→17:09)
[2023-04-02] MEDS: Midazolam HCl/PF 2 MG/2 ML VIAL IVPUSH ×2 (07:10→22:50)
[2023-04-02] MEDS: KCl 20 mEq in 5% Dex/0.45% Sod 20 MEQ/1,000 ML IV.SOLN 100 MEQ IVCONT ×2 (07:30→17:34)
--- NOTE | 2023-04-02 07:37 | W.PM.CCCN ---
History of Present Illness Data of Consult Service Date: 04/02/23 Requesting physician: Leonardo Bai Primary Care Provider: Angel Montiel MD [facility] Reason for consult: perforated viscus status post right nakia colectomy and diverting ileostomy 78-year-old female oxygen dependent longstanding COPD and had bilateral wedge resections for lung carcinoma presents with acute onset of abdominal pain and hypotension takes Coumadin chronically at home for previous history of deep vein thrombosis and the elevated INR was treated here with 2 units of fresh frozen plasma plus the patient received a total of 3 L of fluid including intraoperative and found a distended cecum perforated with with minimal peritoneal soilage and had a right hemicolectomy with a diverting ileostomy bedside echo with approximately 50-55% ejection fraction but normal LV and RV dimension no primary valve or pericardial disease and no IVC distension chest x-ray with good endotracheal tube and NG tube placement end tidal CO2 curve morphology indicates active airway obstruction so her initiating albuterol treatments and keeping dexmedetomidine in the hope that we might start an early weaning of the ventilator Review of Systems Review of Systems: Yes Unobtainable due to mental status PMFSH Past Medical History Medical History (Updated 04/02/23 @ 01:00 by Leonardo Bai MD) Peripheral vascular disease Perforated viscus Shortness of breath Respiratory failure with hypoxia Anxiety Tubular adenoma of colon (~2014) Cancer of upper lobe of left lung (~2020) Osteoporosis (~2018) History of pulmonary embolism (~2011) History of left breast cancer (~2008) Current use of anticoagulant therapy (~2011) Chronic bronchitis COPD (chronic obstructive pulmonary disease) Cancer of upper lobe of right lung (~2019) Closed intertrochanteric fracture with routine healing (~2019) Surgical History Surgical History History of colonoscopy (~07/2014) History of tubal ligation History of lung surgery (~05/2020) History of tonsillectomy History of left breast biopsy (~03/2009) History of hip surgery (~11/2019) History of lumpectomy of left breast (~04/2009) History of appendectomy (~09/2012) History of lung surgery (~07/2019) Social History Social History Household Members: Unknown / Unable to assess Housing: Unknown / Unable to assess Do you presently have visiting nurse or other home services: Yes (VNA's every other day) Unable to assess alcohol history related to: Unable to respond Alcohol intake: never Comment: rings appropriately Patient Tobacco Use Status: Former Tobacco user Quit Date: 1996 Years Smoked: 35pyh - quit 1997 Second Hand Smoke Exposure: No Advance Directives Date on File: 07/25/22 service: No Current occupational status: disabled Meds Allergies Allergy/AdvReac Type Severity Reaction Status Date / Time No Known Allergies Allergy Verified 04/01/23 20:03 Active Medications: Current Medications Chlorhexidine Gluconate (Chlorhexidine Gluc Oral Rinse 15 Ml Mouthwash) 15 ml BUCCAL TID ANJELICA Famotidine (Famotidine/Pf 20 Mg/2 Ml Vial) 20 mg IVPUSH BID ANJELICA Heparin Sodium (Porcine) (Heparin Sodium,Porcine 5,000 Unit/Ml Vial) 5,000 unit SUBCUT Q8H ANJELICA Piperacillin Sod/Tazobactam (Sod 3.375 gm/ Sodium Chloride) 50 mls @ 100 mls/hr IV Q6H ANJELICA Dexmedetomidine HCl (Precedex) 400 mcg in 100 mls @ 0 mls/hr IVCONT .Q0M ANJELICA; Protocol Potassium Chloride/Dextrose/Sod Cl (Kcl 20 Meq In 5% Dex/0.45% Sod) 20 meq in 1,000 mls @ 100 mls/hr IVCONT .Q10H ANJELICA Midazolam HCl (Midazolam Hcl/Pf 2 Mg/2 Ml Vial) 2 mg IVPUSH Q15M PRN PRN Reason: anxiety/restlessness Sodium Chloride (0.9 % Sodium Chloride Flush 3 Ml Syringe) 3 ml IVFLUSH QSHIFT ANJELICA Home Medications Medication Instructions Recorded Confirmed Last Taken Type albuterol sulfate 90 mcg/actuation 2 puff PO Q6H PRN Shortness Of 07/23/22 04/02/23 Unknown History aerosol inhaler (Ventolin HFA) Breath Or Wheezing formoterol fumarate 20 mcg/2 mL 20 mcg inhalation BID@0900,1700 02/10/23 04/02/23 02/09/23 History solution for nebulization (Perforomist) ipratropium 0.5 mg-albuterol 3 mg 3 ml inhalation BID@1300,2100 for 02/10/23 04/02/23 02/09/23 History (2.5 mg base)/3 mL nebulization wheezing soln oxycodone 5 mg tablet 5 mg PO BID PRN pain (scale score 04/02/23 04/02/23 Unknown History 7-10) warfarin 2 mg tablet 2 mg PO DAILY 04/02/23 04/02/23 Unknown History Physical Exam Vital Signs: Vital Signs: Last Vital Signs Temp 98.8 F 04/02/23 03:57 Pulse 78 04/02/23 03:57 Resp 18 04/02/23 03:57 BP 127/66 04/02/23 03:57 Pulse Ox 93 04/01/23 22:36 O2 Del Method Nasal Cannula 04/01/23 22:36 O2 Flow Rate 2.5 04/01/23 22:36 BMI result Body Mass Index 22.2 vital signs were stable with then there was some drifting of systolic pressure into the 90s for which rather than increasing volume chose to put her on low dose of norepinephrine capable of awakening with appropriate cognitive function abdomen still relatively soft no bowel sounds diminished bilateral breath sounds with prolonged expiratory time cardiac exam by echo with LV function indicating 50-55% ejection fraction but no IVC distension Results Labs 04/01/23 20:21 04/01/23 20:21 Labs: Short CBC 04/01/23 Range/Units 20:21 WBC 25.8 H (4.8-10.8) X10*3/uL Hgb 11.6 L D (12.0-16.0) g/dl Hct 36.5 L D (37.0-47.0) % Plt Count 482 H D (160-400) X10*3/uL BMP 04/01/23 20:21 Sodium 138 Potassium 4.1 D Chloride 100 Carbon Dioxide 28 BUN 15 Creatinine 0.82 Calcium 8.6 Liver Function 04/01/23 Range/Units 20:21 Total Bilirubin 0.6 (0.0-1.0) mg/dL Direct Bilirubin 0.2 (0.0-0.5) mg/dL AST 13 (5-31) U/L ALT < 5 (0-31) U/L Alkaline Phosphatase 75 (39-117) U/L Albumin 2.7 L (3.5-5.0) g/dL Urine 04/02/23 Range/Units 04:33 Urine Color Dark Yellow Urine Appearance Turbid Urine pH 6.0 (5.0-9.0) Ur Specific [place] >= 1.030 H (1.005-1.025) Urine Protein 30 (1+) H (Neg-Trace) mg/dL Urine Glucose (UA) Negative (Negative) mg/dL Assessment and Plan (1) Peripheral vascular disease: Status: Acute (2) Perforated viscus: Status: Acute (3) Nontraumatic perforation of large intestine: Status: Acute (4) Sepsis: Status: Acute (5) DVT (deep venous thrombosis): Qualifiers: Affected thrombotic vein of extremity: popliteal Chronicity: acute DVT location: lower extremity Laterality: right Qualified Code(s): I82.431 - Acute embolism and thrombosis of right popliteal vein Status: Acute (6) Respiratory failure with hypoxia: Status: Acute (7) Cancer of upper lobe of left lung: Status: Acute (8) Cancer of upper lobe of right lung: Status: Acute (9) Anxiety: Status: Acute (10) Current use of anticoagulant therapy: Status: Acute (11) Chronic bronchitis: Status: Acute (12) Pulmonary nodule: Status: Acute Plan plan is to maintain ventilator status and add bronchodilator therapy fairly aggressively of maintenance volume which will be modest because of the mild reduction of overall systolic reserve with support provided by Levophed Total time managing care of this patient today: 45 minutes.
[2023-04-02] MEDS: 0.9 % Sodium Chloride Flush 3 ML SYRINGE IVFLUSH ×3 (07:42→23:14)
[2023-04-02] MEDS: Famotidine/PF 20 MG/2 ML VIAL IVPUSH ×2 (07:45→21:56)
[2023-04-02] MEDS: Piperacillin Sodium/Tazobactam 3.375 GM in 0.9 % Sodium Chloride 50 ML IV ×4 (07:45→23:20)
[2023-04-02] MEDS: Chlorhexidine Gluc Oral Rinse 15 ML MOUTHWASH BUCCAL ×3 (07:45→21:56)
[2023-04-02] MEDS: Heparin Sodium,Porcine 5,000 UNIT/ML VIAL 5000 UNIT SUBCUT ×3 (07:45→23:19)
--- NOTE | 2023-04-02 08:34 | PHA.MEDREC ---
Pharmacy Consult ? Medication Reconciliation Pharmacy has completed the medication reconciliation.
--- NOTE | 2023-04-02 11:06 | MHC.CM.PN ---
IMM ADDRESSED WITH SON/HCP GABBY. WHITE COPY TO BE MAILED PER SON'S REQUEST. CM UNSUCCESSFUL AT REACHING DAUGHTER/HCP DAVINA VIA TELEPHONE. PT IS CURRENTLY AT [facility] FOR STR. PER SON, PT WAS NOT HAPPY WITH THE CENTER AND THAT SHE MAY CHOOSE TO GO ELSEWHERE ON DC. +HCP ON FILE PCP DR. ROSEMARY HANCOCK. DP: POSSIBLE RETURN TO STR BEFORE HOME PENDING P.T. EVAL. PER SON, PT WAS NOT HAPPY AT [facility] HOWEVER CM DID SEND A RETURN REFERRAL SHOULD SHE CHOOSE TO RETURN. PT WILL REQUIRE BLS TRANSPORT. CM WILL CONTINUE TO FOLLOW FOR ANY CHANGE IN DC NEEDS/PLAN
[2023-04-02] MEDS: HYDROmorphone HCl 0.5 MG/0.5 ML SYRINGE IVPUSH ×2 (15:11→22:02)
--- NOTE | 2023-04-02 16:17 | PM.EVENT ---
Event Note Date of Service: 04/03/23 Event Note: pt sp exp lap and right colectomy with ileostomy - pt with copd hx and remains intubated but doing well on pressure support. vitals ok - BP a little soft so has levophed available making urine ostomy working icu team considering extubating cont with care as planned Time Spent With Patient Time: Total time managing care of this patient today ____ minutes.
[2023-04-02] MEDS: Norepinephrine Bitartrate/D5W 8 MG/250 ML PLAST..BAG 5.16 MG IV (16:24)
[2023-04-03] VITALS (42 sets, daily range): BP systolic 84–150; BP diastolic 45–88; PULSE 11–89; RESP 11–82; TEMP 34.8–37.1; O2SAT 91–100; BMI 23.8
[2023-04-03] MEDS: Midazolam HCl/PF 2 MG/2 ML VIAL IVPUSH ×2 (00:56→03:45)
[2023-04-03] MEDS: KCl 20 mEq in 5% Dex/0.45% Sod 20 MEQ/1,000 ML IV.SOLN 100 MEQ IVCONT ×3 (00:58→22:20)
[2023-04-03] MEDS: dexmedeTOMIDidine HCL/NS 400 MCG/100 ML INFUS..BTL 20.63 MCG IVCONT (02:08)
[2023-04-03 04:45] LABS: VBG Base Excess 3.8 mmol/L; VBG HCO3 27 mmol/L (22-26); VBG pCO2 38 mmHg; VBG pH 7.46 (7.32-7.43); VBG pO2 35 mmHg
[2023-04-03 05:21] LABS: MANUAL DIFF FLAG NO
[2023-04-03 05:22] LABS: Basophils Absolute Auto 0.1 X10*3/uL (0.0-0.2); Basophils Percent Auto 0.5 % (0-2); Eosinophils Absolute Auto 0.2 X10*3/uL (0.0-0.4); Hematocrit 26.8 % (37.0-47.0); Hemoglobin 8.2 g/dl (12.0-16.0); Imm Gran Abs Auto 0.29 X10*3/uL (0.00-0.03); Imm Gran Pct Auto 1.7 % (0.0-0.4); Lymphocytes Absolute Auto 0.9 X10*3/uL (1.2-4.9); Lymphocytes Percent Auto 4.8 % (20-40); Mean Corpuscular HGB Conc 30.6 g/dl (31.0-35.0); Mean Corpuscular Hemoglobin 30.3 pg (27.0-33.0); Mean Corpuscular Volume 98.9 fL (80.0-98.0); Mean Platelet Volume 10.6 fL (9.4-12.3); Monocytes Absolute Auto 0.9 X10*3/uL (0.1-1.2); Neutrophils Absolute Auto 15.3 x10*3/uL (2.0-8.3); Platelet Count 414 X10*3/uL (160-400); Red Blood Count 2.71 X10*6/uL (4.20-5.50); Red Cell Distribution Width 15.9 % (11.0-16.0); White Blood Count 17.5 X10*3/uL (4.8-10.8)
[2023-04-03 05:25] LABS: Venous Blood Gas Refer to POC result
[2023-04-03] MEDS: Piperacillin Sodium/Tazobactam 3.375 GM in 0.9 % Sodium Chloride 50 ML IV ×3 (05:30→18:09)
[2023-04-03 05:43] LABS: Albumin Level 2.2 g/dL (3.5-5.0); Magnesium 2.1 mg/dL (1.6-2.6); Phosphorus 2.3 mg/dL (2.7-4.5)
[2023-04-03 05:44] LABS: B Type Natriuretic Peptide 267 pg/mL (<100)
[2023-04-03 06:08] LABS: Anion Gap 13 (12-20); Blood Urea Nitrogen 11 mg/dL (9-16); Calcium 7.3 mg/dL (8.4-10.2); Carbon Dioxide 22 mmol/L (22-29); Chloride 105 mmol/L (96-108); Creatinine Clr Calc Pharmacy 46.1; Estimated Glomerular Filt Rate > 60; Glucose Random 168 mg/dL (60-115); Potassium 3.9 mmol/L (3.3-5.1); Sodium 136 mmol/L (135-145)
[2023-04-03] MEDS: HYDROmorphone HCl 0.5 MG/0.5 ML SYRINGE IVPUSH ×5 (06:30→19:59)
[2023-04-03] MEDS: 0.9 % Sodium Chloride Flush 3 ML SYRINGE IVFLUSH ×2 (07:21→15:13)
[2023-04-03] MEDS: Heparin Sodium,Porcine 5,000 UNIT/ML VIAL 5000 UNIT SUBCUT ×2 (07:21→15:12)
[2023-04-03] MEDS: Famotidine/PF 20 MG/2 ML VIAL IVPUSH ×2 (07:21→21:52)
[2023-04-03] MEDS: Chlorhexidine Gluc Oral Rinse 15 ML MOUTHWASH BUCCAL (07:21)
[2023-04-03] MEDS: Albuterol/Iprat 2.5/0.5MG 3 ML AMPUL.NEB INHALE ×4 (07:36→19:46)
--- NOTE | 2023-04-03 07:52 | HO.POSTANES ---
Post Anesthesia Evaluation Post Anesthesia Evaluation Date of Service: 04/02/23 Vital Signs: Vital Signs Temp Pulse Resp BP Pulse Ox O2 Del Method FiO2 04/03/23 07:39 21 04/03/23 07:38 67 12 04/03/23 07:36 68 106/55 L 04/03/23 07:00 68 13 123/71 95 Mechanical Ventilation 04/03/23 06:00 66 14 100/45 L 95 Mechanical Ventilation 04/03/23 05:37 68 140/88 H 04/03/23 05:00 68 18 137/77 95 21 04/03/23 04:33 21 04/03/23 03:52 72 14 140/79 H 94 Mechanical Ventilation 04/03/23 03:39 21 04/03/23 03:00 98.6 F 74 20 149/86 H 94 Mechanical Ventilation 04/03/23 02:08 70 150/81 H 04/03/23 02:06 70 150/81 H 04/03/23 02:00 98.7 F 74 14 150/71 H 94 Mechanical Ventilation 04/03/23 01:00 68 16 125/78 95 Mechanical Ventilation 04/03/23 00:15 21 04/03/23 00:00 21 04/03/23 00:00 98.8 F 74 14 143/77 H 92 Mechanical Ventilation 04/02/23 23:44 76 18 139/70 04/02/23 23:00 74 14 118/59 L 100 Mechanical Ventilation 04/02/23 22:52 82 18 118/59 L 04/02/23 22:00 76 18 141/68 H 99 Mechanical Ventilation 04/02/23 21:00 78 18 131/72 98 Mechanical Ventilation 30 04/02/23 20:00 30 04/02/23 20:00 78 18 127/63 98 Mechanical Ventilation 30 Anesthesia: General Endotracheal-GETA Mental Status: Sedated Pain Control: Satisfactory Nausea/Vomiting: None Hydration: Adequate Anesthesia-Related Issues: No Anes. Related Issues Comments: pt is intubated and stable . no apparent anesthetic-related complications.
--- NOTE | 2023-04-03 08:36 | P.PNGS_ITS ---
Subjective Subjective Date of Service: 04/03/23 <Marquita Lopez PA-C - Last Filed: 04/03/23 08:46> 04/03/23 <Leonardo Bai MD - Last Filed: 04/03/23 11:04> Interval history: Remains intubated. Off precedex. Remains on norepi. <Marquita Lopez PA-C - Last Filed: 04/03/23 08:46> Physical Exam 2 Vital Signs: Vital Signs: Last Vital Signs Temp 97.1 F 04/03/23 08:00 Pulse 80 04/03/23 08:00 Resp 18 04/03/23 08:00 BP 96/46 L 04/03/23 08:00 Pulse Ox 93 04/03/23 08:00 O2 Del Method Mechanical Ventil ation 04/03/23 08:00 O2 Flow Rate 30 04/02/23 14:54 FiO2 21 04/03/23 08:00 BMI result Body Mass Index 23.8 <Marquita Lopez PA-C - Last Filed: 04/03/23 08:46> Const: General: no acute distress <Marquita Lopez PA-C - Last Filed: 04/03/23 08:46> Resp: Other: intubated, on vent <Marquita Lopez PA-C - Last Filed: 04/03/23 08:46> Cardio: Rate: regular rate <Marquita Lopez PA-C - Last Filed: 04/03/23 08:46> GI: Other: mucuous fistula RUQ, incision clean end ileostomy with large amt of bilious drainage <Marquita Lopez PA-C - Last Filed: 04/03/23 08:46> Palpation (GI): Soft to palpation <Marquita Lopez PA-C - Last Filed: 04/03/23 08:46> Percussion: Yes normal to percussion <LEVI Jerome Last Filed: 04/03/23 08:46> Skin: General skin exam: no rashes or lesions noted and no jaundice < LEVI Jerome Last Filed: 04/03/23 08:46> Objective Data Active Medications Albuterol/Ipratropium (Albuterol/Iprat 2.5/0.5mg 3 Ml Ampul.Neb) 3 ml INHALE RQ4H WHILE AWAKE [facility], [facility] Last Admin: 04/03/23 07:36 Dose: 3 ml Documented By: GURU Chlorhexidine Gluconate (Chlorhexidine Gluc Oral Rinse 15 Ml Mouthwash) 15 ml BUCCAL TID [facility] Last Admin: 04/03/23 07:21 Dose: 15 ml Documented By: LOUISE Famotidine (Famotidine/Pf 20 Mg/2 Ml Vial) 20 mg IVPUSH BID [facility] Last Admin: 04/03/23 07:21 Dose: 20 mg Documented By: LOUISE Heparin Sodium (Porcine) (Heparin Sodium,Porcine 5,000 Unit/Ml Vial) 5,000 unit SUBCUT Q8H [facility] Last Admin: 04/03/23 07:21 Dose: 5,000 unit Documented By: LOUISE Hydromorphone HCl (Hydromorphone Hcl 0.5 Mg/0.5 Ml Syringe) 0.5 mg IVPUSH Q4H PRN; Protocol PRN Reason: Pain, Severe (Pain Scale 7-10) Last Admin: 04/03/23 06:30 Dose: 0.5 mg Documented By: ROSALIO Piperacillin Sod/Tazobactam (Sod 3.375 gm/ Sodium Chloride) 50 mls @ 100 mls/hr IV Q6H [facility] Last Infusion: 04/03/23 06:10 Dose: Infused Documented By: ROSALIO Dexmedetomidine HCl (Precedex) 400 mcg in 100 mls @ 0 mls/hr IVCONT .Q0M [facility]; Protocol Last Titration: 04/03/23 05:37 Dose: 0 mcg/kg/hr, 0 mls/hr Documented By: ROSALIO Potassium Chloride/Dextrose/Sod Cl (Kcl 20 Meq In 5% Dex/0.45% Sod) 20 meq in 1,000 mls @ 100 mls/hr IVCONT .Q10H [facility] Last Admin: 04/03/23 00:58 Dose: 100 mls/hr Documented By: ROSALIO Norepinephrine Bitartrate (Levophed) 8 mg in 250 mls @ 0 mls/hr IV .Q0M [facility]; Protocol Last Titration: 04/03/23 07:52 Dose: 0.05 mcg/kg/min, 5.16 mls/hr Documented By: LOUISE Midazolam HCl (Midazolam Hcl/Pf 2 Mg/2 Ml Vial) 2 mg IVPUSH Q15M PRN PRN Reason: anxiety/restlessness Last Admin: 04/03/23 03:45 Dose: 2 mg Documented By: ROSALIO Sodium Chloride (0.9 % Sodium Chloride Flush 3 Ml Syringe) 3 ml IVFLUSH QSHIFT [facility] Last Admin: 04/03/23 07:21 Dose: 3 ml Documented By: LOUISE <Marquita Lopez PA-C - Last Filed: 04/03/23 08:46> Labs CBC & Chem 7: 04/03/23 04:47 04/03/23 04:47 <Marquita Lopez PA-C - Last Filed: 04/03/23 08:46> Labs: Laboratory Results - last 24 hr 04/03/23 04/03/23 04:38 04:47 MCV 98.9 H D MCH 30.3 MCHC 30.6 L RDW 15.9 Plt Count 414 H MPV 10.6 Immature Gran % (Auto) 1.7 H Neut % (Auto) 87.0 H Lymph % (Auto) 4.8 L [place] % (Auto) 5.0 Eos % (Auto) 1.0 Baso % (Auto) 0.5 Lymph # (Auto) 0.9 L [place] # (Auto) 0.9 Eos # (Auto) 0.2 Baso # (Auto) 0.1 Abs Immat Gran (auto) 0.29 H Absolute Neuts (auto) 15.3 H Absolute Nucleated RBC 0.000 Nucleated RBC % (auto) 0.0 VBG pH 7.46 H VBG pCO2 38 VBG pO2 35 VBG HCO3 27 H VBG O2 Saturation 57.0 VBG Base Excess 3.8 Anion Gap 13 Estim Creat Clear Calc 46.1 Estimated GFR > 60 Random Glucose 168 H Calcium 7.3 L D Phosphorus 2.3 L Magnesium 2.1 B-Natriuretic Peptide 267 H Albumin 2.2 L <Marquita Lopez PA-C - Last Filed: 04/03/23 08:46> Microbiology Microbiology Results: Microbiology 12/25/23 Unknown Urine Culture - Final Urine clean catch - Urine luna top 04/01/23 22:10 Blood Culture - Preliminary Blood - Venous No growth after 24 hours. 04/01/23 21:44 Blood Culture - Preliminary Blood - Venous No growth after 24 hours. <Marquita Lopez PA-C - Last Filed: 04/03/23 08:46> Procedures Date of Service Date of Service: 04/03/23 <Marquita Lopez PA-C - Last Filed: 04/03/23 08:46> 04/03/23 <Leonardo Bai MD - Last Filed: 04/03/23 11:04> Progress Note: A&P Assessment and plan (1) Perforated viscus: Status: Acute <Marquita Lopez PA-C - Last Filed: 04/03/23 08:46> (2) S/P exploratory laparotomy: Status: Acute <Marquita Lopez PA-C - Last Filed: 04/03/23 08:46> Assessment and Plan: no events postop appears to be doing well may be extubated below by today stoma with output on low-dose pressors as per electronic systems technician - for extubation today seems to be overall doing well I have updated her daughter Erlinda by phone seen and examined independently <Leonardo Bai MD - Last Filed: 04/03/23 11:04> Assessment and Plan: Taken to OR for perforated viscus, pneumoperitoneum 04/02. S/p laparotomy, right colon resection up to proximal transverse colon, end-ileostomy, mucus fistula from the transverse colon stump. Found to have makedly distended cecal bascule with inflammatory changes, occasional diverticuli in right colon, unable to identify any obvious perforation. Weaned off sedation, remains intubated. Abd benign with clean incision, mucuous fistula and ileostomy viable with bilious output. Cont IV abx. Remainder of care per ICU. Possible extubation today. If remains intubated, can begin tube feeds. <Marquita Lopez PA-C - Last Filed: 04/03/23 08:46> Time Spent With Patient Time: Total time managing care of this patient today ____ minutes. <Marquita Lopez PA-C - Last Filed: 04/03/23 08:46> Quality Stroke Does the patient have a stroke diagnosis?: No <Marquita Lopez PA-C - Last Filed: 04/03/23 08:46> VTE Prior VTE?: Yes <Marquita Lopez PA-C - Last Filed: 04/03/23 08:46> VTE Risk Level:: Medical - moderate - high <Marquita Lopez PA-C - Last Filed: 04/03/23 08:46> VTE Device Contraindication: N/A - Device Ordered <Marquita Lopez PA-C - Last Filed: 04/03/23 08:46> VTE Drug Contraindication: Treatment Not Indicated <Marquita Lopez PA-C - Last Filed: 04/03/23 08:46>
--- NOTE | 2023-04-03 09:35 | PM.CCPN ---
Subjective Subjective Date of Service: 04/03/23 Interval History: 78-year-old female status post a laparotomy with right colon resection and creation of diverting ileostomy for perforated viscus doing very well extubated this morning without difficulty no distress preserved end-tidal CO2 but still has a degree of Levophed dependence with stable vital signs preservation of normal sinus rhythm and she woke up with excellent cognitive function and as a matter of fact elected to reinstate the DNR and DNI order Extensive history of COPD with bilateral lung carcinomas that were resected Critical Care Time (minutes): 45 Physical Exam Vital Signs: Vital Signs: Last Vital Signs Temp 97.1 F 04/03/23 08:00 Pulse 81 04/03/23 09:00 Resp 16 04/03/23 09:00 BP 95/55 L 04/03/23 09:00 Pulse Ox 92 04/03/23 09:00 O2 Del Method Mechanical Ventil ation 04/03/23 09:00 O2 Flow Rate 30 04/02/23 14:54 FiO2 21 04/03/23 09:00 BMI result Body Mass Index 23.8 Awake alert and nonfocal neurologically Bedside echo with 50-55% ejection fraction Good bilateral carotid upstrokes and no neck vein distension Chest without adventitious sounds no expiratory diaphragmatic effort just simply diminished bilateral breath sounds Abdomen is silent Objective Data Labs 04/03/23 04:47 04/03/23 04:47 Labs: Laboratory Results - last 24 hr 04/03/23 04/03/23 04:38 04:47 WBC 17.5 H RBC 2.71 L D Hgb 8.2 L D Hct 26.8 L D MCV 98.9 H D MCH 30.3 MCHC 30.6 L RDW 15.9 Plt Count 414 H MPV 10.6 Immature Gran % (Auto) 1.7 H Neut % (Auto) 87.0 H Lymph % (Auto) 4.8 L [place] % (Auto) 5.0 Eos % (Auto) 1.0 Baso % (Auto) 0.5 Lymph # (Auto) 0.9 L [place] # (Auto) 0.9 Eos # (Auto) 0.2 Baso # (Auto) 0.1 Abs Immat Gran (auto) 0.29 H Absolute Neuts (auto) 15.3 H Absolute Nucleated RBC 0.000 Nucleated RBC % (auto) 0.0 VBG pH 7.46 H VBG pCO2 38 VBG pO2 35 VBG HCO3 27 H VBG O2 Saturation 57.0 VBG Base Excess 3.8 Sodium 136 Potassium 3.9 Chloride 105 Carbon Dioxide 22 Anion Gap 13 BUN 11 Creatinine 0.77 Estim Creat Clear Calc 46.1 Estimated GFR > 60 Random Glucose 168 H Calcium 7.3 L D Phosphorus 2.3 L Magnesium 2.1 B-Natriuretic Peptide 267 H Albumin 2.2 L Microbiology Microbiology Results: Microbiology 04/02/23 Unknown Urine clean catch - Urine luna top Urine Culture - Final 04/01/23 22:10 Blood - Venous Blood Culture - Preliminary No growth after 24 hours. 04/01/23 21:44 Blood - Venous Blood Culture - Preliminary No growth after 24 hours. Progress Note: A&P Assessment and plan (1) S/P exploratory laparotomy: Status: Acute (2) Peripheral vascular disease: Status: Acute (3) Perforated viscus: Status: Acute (4) Nontraumatic perforation of large intestine: Status: Acute (5) Sepsis: Status: Acute (6) DVT (deep venous thrombosis): Status: Acute (7) Cellulitis: Status: Acute (8) Trochanteric bursitis, left hip: Status: Acute (9) Rotator cuff arthropathy of left shoulder: Status: Acute (10) Rotator cuff arthropathy of right shoulder: Status: Acute (11) Pubic ramus fracture: Status: Acute (12) Respiratory failure with hypoxia: Status: Acute (13) Cancer of upper lobe of left lung: Status: Acute (14) Cancer of upper lobe of right lung: Status: Acute (15) Pulmonary nodule: Status: Acute (16) Chronic bronchitis: Status: Acute (17) Current use of anticoagulant therapy: Status: Acute (18) Anxiety: Status: Acute Plan Plan is to work on the weaning process of the Levophed Quality Stroke Does the patient have a stroke diagnosis?: No VTE Prior VTE?: Yes VTE Risk Level:: Medical - moderate - high VTE Device Contraindication: N/A - Device Ordered VTE Drug Contraindication: Treatment Not Indicated
[2023-04-03] MEDS: LORazepam 2 MG/ML VIAL 0.25 MG IVPUSH ×2 (10:13→21:52)
--- NOTE | 2023-04-03 11:08 | MHC.CM.PN ---
Pt extubated today and on [place] N/C. Review of referrals notes [facility] is not taking pt back. Referrals to area facilities added for STR needs. CM to follow.
--- NOTE | 2023-04-03 11:43 | MHC.CLN ---
NUTRITION EXTUBATED TODAY. CURRENTLY NPO. ADVANCE DIET ABLE. STATED THAT EATS MOSTLY SOUP, ICE CREAM, JELLO AND PUDDING. PROVIDE SUPPLEMENTS WHEN DIET ADVANCES. SHOWS SIGNIFICANT WEIGHT GAIN X 3 WEEKS. SUSPECT WEIGHT GAIN DUE TO CHANGE IN FLUID STATUS POST SURGERY. REPORTED NAUSEA AND ABDOMINAL PAIN X 2 WEEKS PRIOR TO ADMISSION. SKIN WITH REDNESS TO COCCYX. MONITOR FOR DIET ADVANCEMENT AND NUTRITIONAL NEEDS. SEE CLINICAL NUTRITION ASSESSMENT 04/03/23.
[2023-04-03] MEDS: Acetaminophen 1,000 MG/100 ML PIGGYBACK 400 MG IV ×2 (13:23→19:11)
--- NOTE | 2023-04-03 14:10 | PM.EVENT ---
Event Note Date of Service: 04/03/23 Event Note: Extubated this morning Appears comfortable Complains of pain and asking for more pain medications Stoma functioning Good urine output Abdomen benign Will increase Dilaudid frequency to Q3 Ofirmev added Daughter at bedside Time Spent With Patient Time: Total time managing care of this patient today ____ minutes.
[2023-04-04] VITALS (27 sets, daily range): BP systolic 112–183; BP diastolic 54–88; PULSE 62–112; RESP 12–32; TEMP 36.2–37.2; O2SAT 85–100
[2023-04-04] MEDS: HYDROmorphone HCl 0.5 MG/0.5 ML SYRINGE IVPUSH ×3 (00:02→10:27)
[2023-04-04] MEDS: Heparin Sodium,Porcine 5,000 UNIT/ML VIAL 5000 UNIT SUBCUT ×2 (00:05→08:27)
[2023-04-04] MEDS: Piperacillin Sodium/Tazobactam 3.375 GM in 0.9 % Sodium Chloride 50 ML IV ×3 (00:11→13:30)
[2023-04-04] MEDS: 0.9 % Sodium Chloride Flush 3 ML SYRINGE IVFLUSH (01:16)
[2023-04-04] MEDS: Acetaminophen 1,000 MG/100 ML PIGGYBACK 400 MG IV ×2 (01:16→08:37)
[2023-04-04] MEDS: Albuterol Sulfate (0.083%) 2.5 MG/3 ML VIAL.NEB INHALE ×3 (01:40→06:43)
[2023-04-04 05:16] LABS: VBG Base Excess 0.3 mmol/L; VBG HCO3 25 mmol/L (22-26); VBG pCO2 41 mmHg; VBG pH 7.39 (7.32-7.43); VBG pO2 40 mmHg
[2023-04-04 05:19] LABS: MANUAL DIFF FLAG NO
[2023-04-04 05:20] LABS: Basophils Absolute Auto 0.1 X10*3/uL (0.0-0.2); Basophils Percent Auto 0.4 % (0-2); Eosinophils Absolute Auto 0.2 X10*3/uL (0.0-0.4); Eosinophils Percent Auto 1.7 % (0-4); Hematocrit 24.9 % (37.0-47.0); Hemoglobin 7.6 g/dl (12.0-16.0); Imm Gran Abs Auto 0.21 X10*3/uL (0.00-0.03); Imm Gran Pct Auto 1.7 % (0.0-0.4); Lymphocytes Absolute Auto 0.7 X10*3/uL (1.2-4.9); Lymphocytes Percent Auto 5.5 % (20-40); Mean Corpuscular HGB Conc 30.5 g/dl (31.0-35.0); Mean Corpuscular Hemoglobin 29.5 pg (27.0-33.0); Mean Corpuscular Volume 96.5 fL (80.0-98.0); Mean Platelet Volume 9.8 fL (9.4-12.3); Monocytes Absolute Auto 0.6 X10*3/uL (0.1-1.2); Neutrophils Absolute Auto 10.9 x10*3/uL (2.0-8.3); Neutrophils Percent Auto 85.7 % (45-73); Platelet Count 323 X10*3/uL (160-400); Red Blood Count 2.58 X10*6/uL (4.20-5.50); Red Cell Distribution Width 15.5 % (11.0-16.0); White Blood Count 12.7 X10*3/uL (4.8-10.8)
[2023-04-04 05:34] LABS: Albumin Level 2.1 g/dL (3.5-5.0); Anion Gap 9 (12-20); Blood Urea Nitrogen 7 mg/dL (9-16); Calcium 7.6 mg/dL (8.4-10.2); Carbon Dioxide 23 mmol/L (22-29); Chloride 107 mmol/L (96-108); Creatinine Clr Calc Pharmacy 47.3; Estimated Glomerular Filt Rate > 60; Glucose Random 92 mg/dL (60-115); Phosphorus 2.4 mg/dL (2.7-4.5); Potassium 4.6 mmol/L (3.3-5.1); Sodium 134 mmol/L (135-145)
[2023-04-04 05:43] LABS: Venous Blood Gas Refer to POC result
[2023-04-04] MEDS: Famotidine/PF 20 MG/2 ML VIAL IVPUSH (08:27)
[2023-04-04] MEDS: Albuterol/Iprat 2.5/0.5MG 3 ML AMPUL.NEB INHALE ×4 (08:41→19:49)
[2023-04-04] MEDS: Albumin Human 25 % 100 ML IV ×2 (08:47→10:44)
--- NOTE | 2023-04-04 10:13 | P.PNGS_ITS ---
Subjective Subjective Date of Service: 04/04/23 <Marquita Lopez PA-C - Last Filed: 04/04/23 10:38> 04/04/23 <Leonardo Bai MD - Last Filed: 04/04/23 15:10> Interval history: Extubated yesterday. Transferred from ICU. C/o incisional pain this morning. Improved with analgesics. Feels hungry. <Marquita Lopez PA-C - Last Filed: 04/04/23 10:38> Physical Exam 2 Vital Signs: Vital Signs: Last Vital Signs Temp 97.6 F 04/04/23 07:10 Pulse 88 04/04/23 08:43 Resp 18 04/04/23 08:43 BP 125/62 04/04/23 08:18 Pulse Ox 100 04/04/23 07:10 O2 Del Method Nasal Cannula 04/04/23 07:10 O2 Flow Rate 2 04/04/23 07:10 FiO2 21 04/03/23 09:00 BMI result Body Mass Index 23.8 <Marquita Lopez PA-C - Last Filed: 04/04/23 10:38> Const: General: comfortable, no acute distress and alert <Marquita Lopez PA-C - Last Filed: 04/04/23 10:38> Orientation/consciousness: patient oriented x3 <Marquita Lopez PA-C - Last Filed: 04/04/23 10:38> Resp: Effort & Inspection: normal respiratory effort and Actively coughing <Marquita Lopez PA-C - Last Filed: 04/04/23 10:38> Auscultation: crackles (bases) <Marquita Lopez PA-C - Last Filed: 04/04/23 10:38> GI: Other: ileostomy and mucous fistula viable, ostomy with bilious output <LEVI Jerome Last Filed: 04/04/23 10:38> Inspection: Yes distended (mild) and Yes incision (clean) <LEVI Jerome Last Filed: 04/04/23 10:38> Palpation (GI): Soft to palpation, Tenderness to palpation present (GI) (incisional), no guarding and not rigid <Marquita Lopez PA-C - Last Filed: 04/04/23 10:38> Skin: General skin exam: no rashes or lesions noted <Marquita Lopez PA-C - Last Filed: 04/04/23 10:38> Neuro: General: patient oriented x3 and moves all extremities <Marquita Lopez PA-C - Last Filed: 04/04/23 10:38> Objective Data Active Medications Albuterol Sulfate (Albuterol Sulfate (0.083%) 2.5 Mg/3 Ml Vial.Neb) 2.5 mg INHALE Q2H PRN PRN Reason: Shortness of Breath/Wheezing Last Admin: 04/04/23 06:43 Dose: 2.5 mg Documented By: VANESSA Albuterol/Ipratropium (Albuterol/Iprat 2.5/0.5mg 3 Ml Ampul.Neb) 3 ml INHALE RQ4H WHILE AWAKE [facility] Last Admin: 04/04/23 08:41 Dose: 3 ml Documented By: KAI Famotidine (Famotidine/Pf 20 Mg/2 Ml Vial) 20 mg IVPUSH BID [facility] Last Admin: 04/04/23 08:27 Dose: 20 mg Documented By: HANNA Heparin Sodium (Porcine) (Heparin Sodium,Porcine 5,000 Unit/Ml Vial) 5,000 unit SUBCUT Q8H [facility] Last Admin: 04/04/23 08:27 Dose: 5,000 unit Documented By: HANNA Hydromorphone HCl (Hydromorphone Hcl 0.5 Mg/0.5 Ml Syringe) 0.5 mg IVPUSH Q3H PRN; Protocol PRN Reason: Pain, Severe (Pain Scale 7-10) Last Admin: 04/04/23 04:23 Dose: 0.5 mg Documented By: CLAUDIA Hydroxyzine HCl (Hydroxyzine Hcl 25 Mg Tablet) 25 mg PO Q6H PRN PRN Reason: anxiety/restlessness Piperacillin Sod/Tazobactam (Sod 3.375 gm/ Sodium Chloride) 50 mls @ 100 mls/hr IV Q6H [facility] Last Infusion: 04/04/23 05:56 Dose: Infused Documented By: CLAUDIA Acetaminophen (Ofirmev) 1,000 mg in 100 mls @ 400 mls/hr IV Q6H [facility] Last Infusion: 04/04/23 09:01 Dose: Infused Documented By: HANNA Oxycodone HCl (Oxycodone Hcl Immed Release 5 Mg Tablet) 5 mg PO Q4H PRN PRN Reason: Pain, Moderate(Pain Scale 4-6) Oxycodone HCl (Oxycodone Hcl Immed Release 5 Mg Tablet) 10 mg PO Q4H PRN PRN Reason: Pain, Severe (Pain Scale 7-10) Sodium Chloride (0.9 % Sodium Chloride Flush 3 Ml Syringe) 3 ml IVFLUSH QSHIFT [facility] Last Admin: 04/04/23 08:59 Dose: Not Given Documented By: HANNA Non-Admin Reason: IV Running <Marquita Lopez PA-C - Last Filed: 04/04/23 10:38> Labs CBC & Chem 7: 04/04/23 05:11 04/04/23 05:11 <Marquita Lopez PA-C - Last Filed: 04/04/23 10:38> Labs: Laboratory Results - last 24 hr 04/02/23 04/04/23 04/04/23 00:22 05:10 05:11 MCV 96.5 MCH 29.5 MCHC 30.5 L RDW 15.5 Plt Count 323 MPV 9.8 Immature Gran % (Auto) 1.7 H Neut % (Auto) 85.7 H Lymph % (Auto) 5.5 L [place] % (Auto) 5.0 Eos % (Auto) 1.7 Baso % (Auto) 0.4 Lymph # (Auto) 0.7 L [place] # (Auto) 0.6 Eos # (Auto) 0.2 Baso # (Auto) 0.1 Abs Immat Gran (auto) 0.21 H Absolute Neuts (auto) 10.9 H Absolute Nucleated RBC 0.000 Nucleated RBC % (auto) 0.0 VBG pH 7.39 VBG pCO2 41 VBG pO2 40 VBG HCO3 25 VBG O2 Saturation 67.0 VBG Base Excess 0.3 Anion Gap 9 L Estim Creat Clear Calc 47.3 Estimated GFR > 60 Random Glucose 92 Calcium 7.6 L Phosphorus 2.4 L Magnesium 2.0 Albumin 2.1 L Blood Type O Positive Antibody Screen NEGATIVE Crossmatch See Detail <Marquita Lopez PA-C - Last Filed: 04/04/23 10:38> Microbiology Microbiology Results: Microbiology 04/01/23 22:10 Blood Culture - Preliminary Blood - Venous No growth after 48 hours. 04/01/23 21:44 Blood Culture - Preliminary Blood - Venous No growth after 48 hours. 04/02/23 Unknown Urine Culture - Final Urine clean catch - Urine luna top <Marquita Lopez PA-C - Last Filed: 04/04/23 10:38> Procedures Date of Service Date of Service: 04/04/23 <Marquita Lopez PA-C - Last Filed: 04/04/23 10:38> 04/04/23 <Leonardo Bai MD - Last Filed: 04/04/23 15:10> Progress Note: A&P Assessment and plan (1) S/P exploratory laparotomy: Status: Acute <LEVI Jerome Last Filed: 04/04/23 10:38> Assessment and Plan: Transferred to the [facility] unit early this morning Has some audible secretions on her throat Pain seems better controlled compared to yesterday Stoma functioning well Abdomen soft Okay to have clear liquids Hospice consulted Pain management Incentive spirometry Hemoglobin low - transfuse 1 unit Seen and examined independently Looks well overall <Leonardo Bai MD - Last Filed: 04/04/23 15:10> (2) Perforated viscus: Status: Acute <Marquita Lopez PA-C - Last Filed: 04/04/23 10:38> Assessment and Plan: POD #2 s/p laparotomy, right colon resection up to proximal transverse colon, end-ileostomy, mucus fistula from the transverse colon stump. Found to have makedly distended cecal bascule with inflammatory changes, occasional diverticuli in right colon, unable to identify any obvious perforation. Now on med/tele, doing fairly well post op. Abd benign with clean incision, mucuous fistula and ileostomy viable. H/H drifted down this am, will transfuse 1U PRBC. Leukocytosis improving, cont IV abx. Ostomy continues with bilious output. Will begin on clears. OOB/ambulation and IS use. PT consult. Hospitalists following for management of medical comorbidities. <LEVI Jerome Last Filed: 04/04/23 10:38> Time Spent With Patient Time: Total time managing care of this patient today ____ minutes. <Marquita Lopez PA-C - Last Filed: 04/04/23 10:38> Quality Stroke Does the patient have a stroke diagnosis?: No <Marquita Lopez PA-C - Last Filed: 04/04/23 10:38> VTE Prior VTE?: Yes <Marquita Lopez PA-C - Last Filed: 04/04/23 10:38> VTE Risk Level:: Medical - moderate - high <Marquita Lopez PA-C - Last Filed: 04/04/23 10:38> VTE Device Contraindication: N/A - Device Ordered <Marquita Lopez PA-C - Last Filed: 04/04/23 10:38> VTE Drug Contraindication: Treatment Not Indicated <Marqutia Lopez PA-C - Last Filed: 04/04/23 10:38>
[2023-04-04] MEDS: hydrOXYzine HCL 25 MG TABLET PO (10:27)
--- NOTE | 2023-04-04 12:31 | MHC.CLN ---
F/U EXTUBATED YESTERDAY AND TRANSFERRED TO MEDICAL FLOOR DIET ADVANCED TO C/L STATED THAT SHE PREFERS TO EAT MOSTLY SOUP, ICE CREAM, JELLO AND PUDDING RECOMMEND ADDING GELATEIN TO CURRENT DIET TO INCREASE PO PROTEIN MONITOR FOR DIET ADVANCEMENT, PO INTAKE AND NUTRITIONAL NEEDS
--- NOTE | 2023-04-04 14:34 | P.PNIM_ITS ---
Subjective Subjective Date of Service: 04/04/23 Interval History: doing well overall since transfer from ICU. Awake and interactive Review of Systems Denies chest pain Denies shortness of breath Admits to abdominal pain with movement but denies nausea vomiting Denies fever chills Physical Exam 2 Vital Signs: Vital Signs: Last Vital Signs Temp 97.3 F 04/04/23 11:32 Pulse 80 04/04/23 11:32 Resp 16 04/04/23 11:32 BP 143/68 H 04/04/23 11:32 Pulse Ox 100 04/04/23 07:10 O2 Del Method Nasal Cannula 04/04/23 07:10 O2 Flow Rate 2 04/04/23 07:10 FiO2 21 04/03/23 09:00 BMI result Body Mass Index 23.8 Objective Data Active Medications Albuterol Sulfate (Albuterol Sulfate (0.083%) 2.5 Mg/3 Ml Vial.Neb) 2.5 mg INHALE Q2H PRN PRN Reason: Shortness of Breath/Wheezing Last Admin: 04/04/23 06:43 Dose: 2.5 mg Documented By: VANESSA Albuterol/Ipratropium (Albuterol/Iprat 2.5/0.5mg 3 Ml Ampul.Neb) 3 ml INHALE RQ4H WHILE AWAKE [facility] Last Admin: 04/04/23 11:22 Dose: 3 ml Documented By: PAULINE Famotidine (Famotidine/Pf 20 Mg/2 Ml Vial) 20 mg IVPUSH BID [facility] Last Admin: 04/04/23 08:27 Dose: 20 mg Documented By: HANNA Heparin Sodium (Porcine) (Heparin Sodium,Porcine 5,000 Unit/Ml Vial) 5,000 unit SUBCUT Q8H [facility] Last Admin: 04/04/23 08:27 Dose: 5,000 unit Documented By: HANNA Hydromorphone HCl (Hydromorphone Hcl 0.5 Mg/0.5 Ml Syringe) 0.5 mg IVPUSH Q3H PRN; Protocol PRN Reason: Pain, Severe (Pain Scale 7-10) Last Admin: 04/04/23 10:27 Dose: 0.5 mg Documented By: HANNA Hydroxyzine HCl (Hydroxyzine Hcl 25 Mg Tablet) 25 mg PO Q6H PRN PRN Reason: anxiety/restlessness Last Admin: 04/04/23 10:27 Dose: 25 mg Documented By: HANNA Piperacillin Sod/Tazobactam (Sod 3.375 gm/ Sodium Chloride) 50 mls @ 100 mls/hr IV Q6H [facility] Last Admin: 04/04/23 13:30 Dose: 100 mls/hr Documented By: HANNA Acetaminophen (Ofirmev) 1,000 mg in 100 mls @ 400 mls/hr IV Q6H [facility] Last Infusion: 04/04/23 09:01 Dose: Infused Documented By: HANNA Lorazepam (Lorazepam 2 Mg/Ml Vial) 0.5 mg IVPUSH Q4H PRN PRN Reason: anxiety/restlessness Oxycodone HCl (Oxycodone Hcl Immed Release 5 Mg Tablet) 5 mg PO Q4H PRN PRN Reason: Pain, Moderate(Pain Scale 4-6) Oxycodone HCl (Oxycodone Hcl Immed Release 5 Mg Tablet) 10 mg PO Q4H PRN PRN Reason: Pain, Severe (Pain Scale 7-10) Sodium Chloride (0.9 % Sodium Chloride Flush 3 Ml Syringe) 3 ml IVFLUSH QSHIFT [facility] Last Admin: 04/04/23 08:59 Dose: Not Given Documented By: HANNA Non-Admin Reason: IV Running Labs 04/04/23 05:11 04/04/23 05:11 Labs: Laboratory Results - last 24 hr 04/02/23 04/04/23 04/04/23 00:22 05:10 05:11 MCV 96.5 MCH 29.5 MCHC 30.5 L RDW 15.5 Plt Count 323 MPV 9.8 Immature Gran % (Auto) 1.7 H Neut % (Auto) 85.7 H Lymph % (Auto) 5.[address] [place] % (Auto) 5.0 Eos % (Auto) 1.7 Baso % (Auto) 0.4 Lymph # (Auto) 0.[address] [place] # (Auto) 0.6 Eos # (Auto) 0.2 Baso # (Auto) 0.1 Abs Immat Gran (auto) 0.21 H Absolute Neuts (auto) 10.9 H Absolute Nucleated RBC 0.000 Nucleated RBC % (auto) 0.0 VBG pH 7.39 VBG pCO2 41 VBG pO2 40 VBG HCO3 25 VBG O2 Saturation 67.0 VBG Base Excess 0.3 Anion Gap 9 L Estim Creat Clear Calc 47.3 Estimated GFR > 60 Random Glucose 92 Calcium 7.6 L Phosphorus 2.4 L Magnesium 2.0 Albumin 2.1 L Blood Type O Positive Antibody Screen NEGATIVE Crossmatch See Detail Microbiology Microbiology Results: Microbiology 04/01/23 22:10 Blood Culture - Preliminary Blood - Venous No growth after 48 hours. 04/01/23 21:44 Blood Culture - Preliminary Blood - Venous No growth after 48 hours. Assessment and Plan (1) S/P exploratory laparotomy: Status: Acute (2) Cancer of upper lobe of left lung: Status: Acute (3) Anxiety: Status: Acute Plan 78-year-old female with history of bilateral lung cancer s/p multiple resections, chronic hypoxemic respiratory failure on 2-3 L supplemental O2 p.r.n., history of breast cancer s/p chemotherapy and radiation, COPD, history of recurrent pulmonary emboli anticoagulated with Coumadin, and osteoporosis admitted for cellulitis R foot with sepsis and recurrent VTE RLE; developed perforated viscus requiring laparotomy with right colon resection up to the proximal transverse colon and end ileostomy. Extubated and transferred out of ICU 04/03/2023. Doing well overall 1.Perforated viscus As per surgery; diet advanced to clear liquids - further recommendations as per surgery 2. AFib with RVR Currently examines in normal sinus rhythm; no anticoagulation secondary to surgery. -Continue on telemetry -continue only prophylactic Lovenox at this time until acceptable by surgery for restart DOAC - continue to monitor on telemetry 3. COPD /lung cancer O2 sats have been stable however anxiety remains and large factor and breathing - Ativan 1 mg IV q.4 hours p.r.n. - DuoNebs q.4 hours p.r.n. - titrate O2 to maintain sats greater than equal to 90% DNR DNI Lovenox Quality Stroke Does the patient have a stroke diagnosis?: No VTE Prior VTE?: Yes VTE Risk Level:: Medical - moderate - high VTE Device Contraindication: N/A - Device Ordered VTE Drug Contraindication: Treatment Not Indicated
[2023-04-04] MEDS: LORazepam 2 MG/ML VIAL 0.5 MG IVPUSH (14:42)
[2023-04-04] MEDS: oxyCODONE HCl Immed Release 5 MG TABLET PO (14:51)
[2023-04-04] MEDS: LORazepam 2 MG/ML VIAL 1 MG IVPUSH ×2 (14:58→19:31)
--- NOTE | 2023-04-04 15:09 | PM.EVENT ---
Event Note Date of Service: 04/04/23 Event Note: Seen on afternoon rounds Has better pain control Tolerating clear liquids Stoma functioning well Still with some shortness of breath I have instructed her incentive spirometry Transfusion ongoing Follow hemoglobin She looks stable otherwise Appreciate hospitalist follow-up Time Spent With Patient Time: Total time managing care of this patient today ____ minutes.
[2023-04-04] MEDS: Morphine Sulfate 4 MG/ML CARTRIDGE IVPUSH (15:21)
--- NOTE | 2023-04-04 18:10 | PM.EVENT ---
Event Note Date of Service: 04/04/23 Event Note: Patient has been placed on a morphine drip at the request of Dr. Devi who spoke to the patient's daughter, who is her healthcare proxy. She wishes patient to be made comfort measures only. Time Spent With Patient Time: Total time managing care of this patient today ____ minutes.
[2023-04-04] MEDS: Morphine Sulfate/NS 100 MG/100 ML PLAST..BAG IVCONT (18:42)
[2023-04-04] MEDS: Furosemide 20 MG/2 ML VIAL IVPUSH (18:42)
--- NOTE | 2023-04-04 19:40 | PC.NURSE ---
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
[2023-04-05 02:56] VITALS: RESP 18
[2023-04-05] MEDS: Morphine Sulfate 4 MG/ML CARTRIDGE IVPUSH (04:24)
[2023-04-05 05:42] VITALS: BMI 23.8
[2023-04-05 07:32] VITALS: RESP 12
--- NOTE | 2023-04-05 08:08 | PM.PNGS ---
Subjective Subjective Date of Service: 04/05/23 Interval history: family has decided last night that the patient will be on [employer] currently on Morphine drip Physical Exam Vital Signs: Vital Signs: Last Vital Signs Temp 97.2 F 04/04/23 15:54 Pulse 62 04/04/23 19:49 Resp 12 04/05/23 07:32 BP 147/85 H 04/04/23 15:54 Pulse Ox 98 04/04/23 15:54 O2 Del Method Nasal Cannula, Hu midified O2 04/04/23 15:54 O2 Flow Rate 2 04/04/23 15:54 FiO2 21 04/03/23 09:00 BMI result Body Mass Index 23.8 Const: Other: asleep with some shortness of breath audible secretions on upper airway Resp: Other: some SOB, audible secretions GI: Other: stoma with output Palpation (GI): Soft to palpation and not firm Objective Data Active Medications Albuterol Sulfate (Albuterol Sulfate (0.083%) 2.5 Mg/3 Ml Vial.Neb) 2.5 mg INHALE Q2H PRN PRN Reason: Shortness of Breath/Wheezing Last Admin: 04/04/23 06:43 Dose: 2.5 mg Documented By: VANESSA Albuterol/Ipratropium (Albuterol/Iprat 2.5/0.5mg 3 Ml Ampul.Neb) 3 ml INHALE RQ4H WHILE AWAKE [facility] Last Admin: 04/04/23 19:49 Dose: 3 ml Documented By: SHELDON Famotidine (Famotidine/Pf 20 Mg/2 Ml Vial) 20 mg IVPUSH BID [facility] Last Admin: 04/05/23 03:21 Dose: Not Given Documented By: ELVIN Non-Admin Reason: [employer] Heparin Sodium (Porcine) (Heparin Sodium,Porcine 5,000 Unit/Ml Vial) 5,000 unit SUBCUT Q8H [facility] Last Admin: 04/05/23 03:21 Dose: Not Given Documented By: ELVIN Non-Admin Reason: [employer] Hydromorphone HCl (Hydromorphone Hcl 0.5 Mg/0.5 Ml Syringe) 0.5 mg IVPUSH Q3H PRN; Protocol PRN Reason: Pain, Severe (Pain Scale 7-10) Last Admin: 04/04/23 10:27 Dose: 0.5 mg Documented By: HANNA Hydroxyzine HCl (Hydroxyzine Hcl 25 Mg Tablet) 25 mg PO Q6H PRN PRN Reason: anxiety/restlessness Last Admin: 04/04/23 10:27 Dose: 25 mg Documented By: HANNA Piperacillin Sod/Tazobactam (Sod 3.375 gm/ Sodium Chloride) 50 mls @ 100 mls/hr IV Q6H [facility] Last Admin: 04/05/23 03:21 Dose: Not Given Documented By: ELVIN Non-Admin Reason: [employer] Acetaminophen (Ofirmev) 1,000 mg in 100 mls @ 400 mls/hr IV Q6H [facility] Last Admin: 04/05/23 03:21 Dose: Not Given Documented By: ELVIN Non-Admin Reason: [employer] Morphine Sulfate (Morphine Sulfate/Ns) 100 mg in 100 mls @ 0 mls/hr IVCONT .Q0M [facility]; Protocol Last Infusion: 04/04/23 19:16 Dose: 3 mg/hr, 3 mls/hr Documented By: SOUTH Lorazepam (Lorazepam 2 Mg/Ml Vial) 1 mg IVPUSH Q4H PRN PRN Reason: anxiety/restlessness Last Admin: 04/04/23 19:31 Dose: 1 mg Documented By: SOUTH Morphine Sulfate (Morphine Sulfate 4 Mg/Ml Cartridge) 4 mg IVPUSH Q3H PRN; Protocol PRN Reason: anxiety/restlessness Last Admin: 04/05/23 04:24 Dose: 4 mg Documented By: ELVIN Oxycodone HCl (Oxycodone Hcl Immed Release 5 Mg Tablet) 5 mg PO Q4H PRN PRN Reason: Pain, Moderate(Pain Scale 4-6) Last Admin: 04/04/23 14:51 Dose: 5 mg Documented By: HANNA Oxycodone HCl (Oxycodone Hcl Immed Release 5 Mg Tablet) 10 mg PO Q4H PRN PRN Reason: Pain, Severe (Pain Scale 7-10) Sodium Chloride (0.9 % Sodium Chloride Flush 3 Ml Syringe) [facility] Last Admin: 04/05/23 03:21 Dose: Not Given Documented By: [email or web address] Non-Admin Reason: IV Running Labs 04/04/23 05:11 04/04/23 05:11 Labs: Laboratory Results - last 24 hr 04/02/23 00:22 Blood Type O Positive Antibody Screen NEGATIVE Crossmatch See Detail Procedures Date of Service Date of Service: 04/05/23 Progress Note: A&P Assessment and plan (1) Perforated viscus: Status: Acute Assessment and Plan: S/P laparotomy, right colon resection, ileostomy +mucus fistula stoma functioning, with output; abd benign now on [employer] as per family on Morphine drip also dw daughter Erlinda this AM Time Spent With Patient Time: Total time managing care of this patient today ____ minutes. Quality Stroke Does the patient have a stroke diagnosis?: No VTE Prior VTE?: Yes VTE Risk Level:: Medical - moderate - high VTE Device Contraindication: N/A - Device Ordered VTE Drug Contraindication: Treatment Not Indicated
--- NOTE | 2023-04-05 10:44 | P.CDIM_ITS ---
PROVIDER RESPONSE TEXT: To clarify, the appropriate diagnosis supported by the clinical indicators: Sepsis is/was present and is a clinical diagnosis based on QUERY TEXT: PHYSICIAN'S DOCUMENTATION REQUEST Date of Query: 04/04/2023 05:40 AM EST Patient Name: Blessing Nails Admit Date: 04/02/2023 Dear Leonardo Bai, A review of the medical record indicates additional documentation may be needed. Please review below and update the documentation accordingly. Clarity and consistency of a diagnosis documented within the medical record: ICU progress notes dated 04/02 & 04/03 - Assessment and plan: Sepsis WBC 25.8 LA 1.3 TEMP 97.9/100.6 HR 89/104/93 RR 20/18 BP 108/54 Zosyn Perforated viscus S/P Exploratory laparotomy Sepsis Systemic manifestations of infection, with 2 or more SIRS criteria which include: Fever > 100.4?F or hypothermia < 96.8?F Leukocytosis - WBC > 12,000 or leukopenia, WBC < 4,000, or > 10% bands Tachycardia- > 90 beats/minute Tachypnea- RR > 20 breaths/minute or PaCO2 < 32mmHg Based on the above information and the recognized standard for sepsis, could you please clarify if th is diagnoses is still accurate and reflective of the patient's condition to ensure quality of the medical record. Sepsis is/was present and is a clinical diagnosis based on After study (the condition) has been ruled out Other (explain) Clinically unable to determine (explain) Thank you, Maya Hollins, CCS, CDIS Use of terms such as suspected, likely, concern for, or probable (associated with a specific diagnosi s that is being evaluated, monitored, or treated as if it exists) are acceptable and can be coded in the inpatient se tting, when documented at the time of discharge. Please use your independent medical judgment in providing your response. THIS QUERY IS PART OF THE PERMANENT MEDICAL RECORD
--- NOTE | 2023-04-05 11:05 | P.CDIM_ITS ---
PROVIDER RESPONSE TEXT: To clarify, the appropriate diagnosis supported by the clinical indicators: Chronic respiratory failure QUERY TEXT: PHYSICIAN'S DOCUMENTATION REQUEST Date of Query: 04/04/2023 05:44 AM EST Patient Name: Blessing Nails Admit Date: 04/02/2023 Dear Leonardo Bai, A review of the medical record indicates additional documentation may be needed. Please review below and update the documentation accordingly. Clinical indicators: ED 04/01 - patient with history of bilateral lung cancer s/p multiple resections chronic hypoxemic re spiratory failure on supplemental oxygen. COPD Chronic shortness of breath Surgery H&P: She has chronic shortness of breath is on O2 supplementation. Known advanced [employer] with em physema secondary to many years of smoking. Risk because of her advanced COPD, poor pulmonary reserve, poor baseline level of function. RR 20/18 pulse ox 91L Mechanical vent/2L NC Based on the above information please specify the status of the respiratory failure: Chronic respiratory failure Acute on chronic respiratory failure Other Other (explain) Clinically unable to determine (explain) Thank you, Maya Hollins, CCS, CDIS Use of terms such as suspected, likely, concern for, or probable (associated with a specific diagnosi s that is being evaluated, monitored, or treated as if it exists) are acceptable and can be coded in the inpatient se tting, when documented at the time of discharge. Please use your independent medical judgment in providing your response. THIS QUERY IS PART OF THE PERMANENT MEDICAL RECORD
[2023-04-05] MEDS: Scopolamine 1.5 MG PATCH.TD.3 TRANSDERMA (12:19)
[2023-04-05] MEDS: LORazepam 2 MG/ML VIAL 1 MG IVPUSH (13:23)
--- NOTE | 2023-04-05 13:42 | MHC.CM.PN ---
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
--- NOTE | 2023-04-05 14:24 | HO.PM.IMPN ---
Subjective Subjective Date of Service: 04/05/23 Interval History: follow up medical consultation patient made HEAD OF INSIGHT yesterday on morphine drip, appears comfortable Physical Exam Vital Signs: Vital Signs: Last Vital Signs Temp 97.2 F 04/04/23 15:54 Pulse 62 04/04/23 19:49 Resp 12 04/05/23 07:32 BP 147/85 H 04/04/23 15:54 Pulse Ox 98 04/04/23 15:54 O2 Del Method Nasal Cannula, Hu midified O2 04/04/23 15:54 O2 Flow Rate 2 04/04/23 15:54 FiO2 21 04/03/23 09:00 BMI result Body Mass Index 23.8 Const: General: comfortable and no acute distress Objective Data Active Medications Albuterol Sulfate (Albuterol Sulfate (0.083%) 2.5 Mg/3 Ml Vial.Neb) 2.5 mg INHALE Q2H PRN PRN Reason: Shortness of Breath/Wheezing Last Admin: 04/04/23 06:43 Dose: 2.5 mg Documented By: VANESSA Albuterol/Ipratropium (Albuterol/Iprat 2.5/0.5mg 3 Ml Ampul.Neb) 3 ml INHALE RQ4H WHILE AWAKE [facility] Last Admin: 04/05/23 11:48 Dose: Not Given Documented By: GURU Non-Admin Reason: See Note Heparin Sodium (Porcine) (Heparin Sodium,Porcine 5,000 Unit/Ml Vial) 5,000 unit SUBCUT Q8H [facility] Last Admin: 04/05/23 10:55 Dose: Not Given Documented By: ELIVN Non-Admin Reason: HEAD OF INSIGHT Hydroxyzine HCl (Hydroxyzine Hcl 25 Mg Tablet) 25 mg PO Q6H PRN PRN Reason: anxiety/restlessness Last Admin: 04/04/23 10:27 Dose: 25 mg Documented By: HANNA Acetaminophen (Ofirmev) 1,000 mg in 100 mls @ 400 mls/hr IV Q6H [facility] Last Admin: 04/05/23 10:54 Dose: Not Given Documented By: ELVIN Non-Admin Reason: HEAD OF INSIGHT Morphine Sulfate (Morphine Sulfate/Ns) 100 mg in 100 mls @ 0 mls/hr IVCONT .Q0M [facility]; Protocol Last Infusion: 04/04/23 19:16 Dose: 3 mg/hr, 3 mls/hr Documented By: SOUTH Lorazepam (Lorazepam 2 Mg/Ml Vial) 1 mg IVPUSH Q4H PRN PRN Reason: anxiety/restlessness Last Admin: 04/05/23 13:23 Dose: 1 mg Documented By: ELVIN Morphine Sulfate (Morphine Sulfate 4 Mg/Ml Cartridge) 4 mg IVPUSH Q3H PRN; Protocol PRN Reason: anxiety/restlessness Last Admin: 04/05/23 04:24 Dose: 4 mg Documented By: ELVIN Oxycodone HCl (Oxycodone Hcl Immed Release 5 Mg Tablet) 5 mg PO Q4H PRN PRN Reason: Pain, Moderate(Pain Scale 4-6) Last Admin: 04/04/23 14:51 Dose: 5 mg Documented By: HANNA Oxycodone HCl (Oxycodone Hcl Immed Release 5 Mg Tablet) 10 mg PO Q4H PRN PRN Reason: Pain, Severe (Pain Scale 7-10) Scopolamine (Scopolamine 1.5 Mg Patch.Td.3) 1.5 mg TRANSDERMA Q72H [facility] Last Admin: 04/05/23 12:19 Dose: 1.5 mg Documented By: ELVIN Sodium Chloride (0.9 % Sodium Chloride Flush 3 Ml Syringe) 3 ml IVFLUSH QSHIFT [facility] Last Admin: 04/05/23 03:21 Dose: Not Given Documented By: ELVIN Non-Admin Reason: IV Running Labs 04/04/23 05:11 04/04/23 05:11 Labs: Laboratory Results - last 24 hr 04/02/23 00:22 Crossmatch See Detail Assessment and Plan (1) Perforated viscus: Status: Acute (2) S/P exploratory laparotomy: Status: Acute Plan 78-year-old female with history of bilateral lung cancer s/p multiple resections, chronic hypoxemic respiratory failure on 2-3 L supplemental O2 p.r.n., history of breast cancer s/p chemotherapy and radiation, COPD, history of recurrent pulmonary emboli anticoagulated with Coumadin, and osteoporosis admitted for cellulitis R foot with sepsis and recurrent VTE RLE. admitted 04/02 with perforated viscus requiring laparotomy with right colon resection up to the proximal transverse colon and end ileostomy. Extubated and transferred out of ICU 04/03/2023 and made HEAD OF INSIGHT 04/04 and currently on morphine drip. Perforated viscus s/p laparotomy with right colon resection and end ileostomy acute on chronic respiratory failure COPD /lung cancer h/o DVT continue with comfort medications, morphine, ativan, scopolamine attending - dr. garcia Quality Stroke Does the patient have a stroke diagnosis?: No VTE Prior VTE?: No VTE Risk Level:: Medical - moderate - high VTE Device Contraindication: N/A - Device Ordered VTE Drug Contraindication: Treatment Not Indicated
[2023-04-05 16:00] VITALS: RESP 12
--- NOTE | 2023-04-05 17:13 | P.EN_ITS ---
Event Note Date of Service: 04/05/23 Event Note: pt asleep with some SOB audible secretions dw daughter again - [employer] SCHO[employer] MANAGER in effect daughter is flying in from [place] tomorrow Time Spent With Patient Time: Total time managing care of this patient today ____ minutes.
--- NOTE | 2023-04-05 18:33 | PM.EVENT ---
Event Note Date of Service: 04/05/23 Event Note: Call by RN that patient is unresponsive with no pulse. Patient at 18:10 Patient noted to have no pulse, no respirations, pupils fixed and dilated. Called patients daughter and notified her. Time Spent With Patient Time: Total time managing care of this patient today ____ minutes.
--- NOTE | 2023-04-13 11:58 | PM.DS ---
DS: Providers Provider Date of Service: 04/05/23 Date of admission: 04/02/23 03:40 Primary care physician: Angel Montiel MD Consults: 04/04/23 08:10 Consult to Hospitalist Routine Comment: Consulting Provider: Hospitalist Reason For Exam: COPD, hx of DVT, on O2; anemia 04/04/23 16:22 Consult for Sitter Routine Reason for consultation: confusion Has provider been notified: No DS: Diagnosis Discharge Diagnosis (1) Perforated viscus: Status: Acute (2) S/P exploratory laparotomy: Status: Acute (3) Chronic bronchitis: Status: Acute DS: Summary Hospital Course Hospital Course: The patient is an 78-year-old female, with known long history of chronic bronchitis, COPD, history of lung cancer, peripheral vascular disease, DVT, on anticoagulation, who came to the emergency room on the night of April 01, 2023 because of small pain times 2-3 weeks with worsening. She had a CAT scan showing extraluminal air along the right side the colon and the mesentery. There was note of a very distended cecum consistent with a bascule. In view of the presence of free air along with her tenderness, was brought to the operating room for a laparotomy. The site of the perforation was not identified but there was note of edema and inflammatory changes on the cecum and the right colon. A right colon resection was done along with a mucous fistula from the hepatic flexure, and end ileostomy. She actually tolerated procedure well. She was brought to the ICU postop and remained on the ventilator. She was extubated the following day. She was also transferred to the [facility] unit. She was started on clear liquids on postop day 2. However, she had remained short of breath. She had good function of her ileostomy on her 1st postop day. She had no improvement with her shortness of breath which appeared to worsen some. Her daughter at that point had decided to place her on FOOD SAFETY MANAGER on her 3rd postop day. Her abdominal exam otherwise remained benign. The patient on the evening of 04/05/2023. Time Attestation Discharge coordination time: Less than 30 minutes Quality: Safe Use of Opioids Does Pt have an Active Cancer Diagnosis on the Problem List?: No Quality: Stroke Does the patient have a stroke diagnosis?: No Physical Exam Vital Signs: Vital Signs: Last Vital Signs Temp 97.2 F 04/04/23 15:54 Pulse 62 04/04/23 19:49 Resp 12 04/05/23 16:00 BP 147/85 H 04/04/23 15:54 Pulse Ox 98 04/04/23 15:54 O2 Del Method Nasal Cannula, Hu midified O2 04/04/23 15:54 O2 Flow Rate 2 04/04/23 15:54 FiO2 21 04/03/23 09:00 BMI result Body Mass Index 23.8 Patient had ; had been on FOOD SAFETY MANAGER as per the daughter DS: Data Data Completed and Pending Completed studies during hospitalization [Text1]: Pending at discharge 04/02/23 05:49 Surgical [PTH] Routine Procedures Bypass Ileum to Cutaneous, Open Approach (04/02/23) Bypass Transverse Colon to Cutaneous, Open Approach (04/02/23) Introduction of Vasopressor into Peripheral Vein, Percutaneous Approach (04/02/23) Resection of Right Large Intestine, Open Approach (04/02/23) Respiratory Ventilation, 24-96 Consecutive Hours (04/02/23) Transfusion of Nonautologous Frozen Plasma into Peripheral Vein, Percutaneous Approach (04/02/23) Transfusion of Nonautologous Red Blood Cells into Peripheral Vein, Percutaneous Approach (04/02/23) Pending studies at discharge: Laboratory Results WBC 12.7 X10*3/uL (4.8-10.8) H 04/04/23 05:11 RBC 2.58 X10*6/uL (4.20-5.50) L 04/04/23 05:11 Hgb 7.6 g/dl (12.0-16.0) L 04/04/23 05:11 Hct 24.9 % (37.0-47.0) L 04/04/23 05:11 MCV 96.5 fL (80.0-98.0) 04/04/23 05:11 MCH 29.5 pg (27.0-33.0) 04/04/23 05:11 MCHC 30.5 g/dl (31.0-35.0) L 04/04/23 05:11 RDW 15.5 % (11.0-16.0) 04/04/23 05:11 Plt Count 323 X10*3/uL (160-400) 04/04/23 05:11 MPV 9.8 fL (9.4-12.3) 04/04/23 05:11 Immature Gran % (Auto) 1.7 % (0.0-0.4) H 04/04/23 05:11 Neut % (Auto) 85.7 % (45-73) H 04/04/23 05:11 Lymph % (Auto) 5.5 % (20-40) L 04/04/23 05:11 Butts % (Auto) 5.0 % (2-11) 04/04/23 05:11 Eos % (Auto) 1.7 % (0-4) 04/04/23 05:11 Baso % (Auto) 0.4 % (0-2) 04/04/23 05:11 Lymph # (Auto) 0.7 X10*3/uL (1.2-4.9) L 04/04/23 05:11 Butts # (Auto) 0.6 X10*3/uL (0.1-1.2) 04/04/23 05:11 Eos # (Auto) 0.2 X10*3/uL (0.0-0.4) 04/04/23 05:11 Baso # (Auto) 0.1 X10*3/uL (0.0-0.2) 04/04/23 05:11 Abs Immat Gran (auto) 0.21 X10*3/uL (0.00-0.03) H 04/04/23 05:11 Absolute Neuts (auto) 10.9 x10*3/uL (2.0-8.3) H 04/04/23 05:11 Absolute Nucleated RBC 0.000 X10*3/uL (0.0-0.012) 04/04/23 05:11 Nucleated RBC % (auto) 0.0 /100WBC (0.0-0.2) 04/04/23 05:11 Smear Tech's Comments VERIFIED 04/01/23 20:21 PT 19.8 SEC (11.1-13.3) H D 04/02/23 02:45 INR 1.6 (0.9-1.1) H 04/02/23 02:45 VBG pH 7.39 (7.32-7.43) 04/04/23 05:10 VBG pCO2 41 mmHg 04/04/23 05:10 VBG pO2 40 mmHg 04/04/23 05:10 VBG HCO3 25 mmol/L (22-26) 04/04/23 05:10 VBG O2 Saturation 67.0 % 04/04/23 05:10 VBG Base Excess 0.3 mmol/L 04/04/23 05:10 Sodium 134 mmol/L (135-145) L 04/04/23 05:11 Potassium 4.6 mmol/L (3.3-5.1) 04/04/23 05:11 Chloride 107 mmol/L (96-108) 04/04/23 05:11 Carbon Dioxide 23 mmol/L (22-29) 04/04/23 05:11 Anion Gap 9 (12-20) L 04/04/23 05:11 BUN 7 mg/dL (9-16) L 04/04/23 05:11 Creatinine 0.75 mg/dL (0.5-1.4) 04/04/23 05:11 Estim Creat Clear Calc 47.3 04/04/23 05:11 Estimated GFR > 60 04/04/23 05:11 Random Glucose 92 mg/dL (60-115) 04/04/23 05:11 Lactic Acid 1.3 mmol/L (0.5-2.0) 04/01/23 21:44 Calcium 7.6 mg/dL (8.4-10.2) L 04/04/23 05:11 Phosphorus 2.4 mg/dL (2.7-4.5) L 04/04/23 05:11 Magnesium 2.0 mg/dL (1.6-2.6) 04/04/23 05:11 Total Bilirubin 0.6 mg/dL (0.0-1.0) 04/01/23 20:21 Direct Bilirubin 0.2 mg/dL (0.0-0.5) 04/01/23 20:21 AST 13 U/L (5-31) 04/01/23 20:21 ALT < 5 U/L (0-31) 04/01/23 20:21 Alkaline Phosphatase 75 U/L (39-117) 04/01/23 20:21 B-Natriuretic Peptide 267 pg/mL (<100) H 04/03/23 04:47 Total Protein 5.7 g/dL (6.5-8.0) L 04/01/23 20:21 Albumin 2.1 g/dL (3.5-5.0) L 04/04/23 05:11 Lipase 6 U/L (8-78) L 04/01/23 20:21 Urine Color Dark Yellow 04/02/23 04:33 Urine Appearance Turbid 04/02/23 04:33 Urine pH 6.0 (5.0-9.0) 04/02/23 04:33 Ur Specific [place] >= 1.030 (1.005-1.025) H 04/02/23 04:33 Urine Protein 30 (1+) mg/dL (Neg-Trace) H 04/02/23 04:33 Urine Glucose (UA) Negative mg/dL (Negative) 04/02/23 04:33 Urine Ketones Negative mg/dL (Negative) 04/02/23 04:33 Urine Blood Large (3+) (Negative) H 04/02/23 04:33 Urine Nitrite Negative (Negative) 04/02/23 04:33 Ur Leukocyte Esterase Trace (Negative) H 04/02/23 04:33 Urine RBC >20 /HPF (0-2) H 04/02/23 04:33 Urine WBC 21-50 /HPF (0-5) H 04/02/23 04:33 Ur Squamous Epith Cells 3-5 /HPF (0-2) 04/02/23 04:33 Urine Bacteria 4+ (None Seen) 04/02/23 04:33 Hyaline Casts 0-2 /LPF (0-2) 04/02/23 04:33 Influenza Type A (PCR) NEGATIVE (Negative) 04/01/23 20:21 Influenza Type B (PCR) NEGATIVE (Negative) 04/01/23 20:21 RSV RNA Qual (PCR) NEGATIVE (Negative) 04/01/23 20:21 SARS-CoV-2 RNA (RT-PCR) NEGATIVE (Negative) 04/01/23 20:21 Blood Type O Positive 04/02/23 00:22 Antibody Screen NEGATIVE 04/02/23 00:22 Crossmatch See Detail 04/02/23 00:22 Impressions Abdomen/Pelvis CT 04/01/23 22:29 IMPRESSION: 1. Extraluminal air within the right mesentery adjacent to the right colon. The right colon is distended to 9 cm. The cecum is relatively medially oriented suggesting a cecal bascule. 2. There is notable circumferential thickening of the rectum which should be correlated with digital rectal exam. This may be on the basis of a mass lesion versus inflammation. 3. There is moderate distention of the small bowel which is fluid-filled measuring up to 2.5 cm. 4. Severe diverticular disease left colon. Fleischner guidelines were followed. Results of extraluminal air called at approximately 1:07 PM on the date of exam. Chest X-Ray 04/04/23 15:41 IMPRESSION: Persistent bibasilar infiltrates. Discharge Plan Discharge Date/Time: 04/05/23 18:10 Patient Disposition: Discharge Diagnosis: Perforated viscus Referrals: Angel Montiel MD [Primary Care Provider] - 1 Week Discharge Medications: No Action lorazepam 0.5 mg tablet 0.5 mg PO TID PRN (Reason: anxiety) 30 Days Qty: 90 3RF azithromycin 250 mg tablet 250 mg PO Q OTHER DAY Qty: 45 2RF ipratropium-albuterol 0.5 mg-3 mg(2.5 mg base)/3 mL solution for nebulization 3 ml inhalation BID@1300,2100 formoterol fumarate [Perforomist] 20 mcg/2 mL solution for nebulization 20 mcg inhalation BID@0900,1700 warfarin 2 mg tablet 2 mg PO DAILY oxycodone 5 mg tablet 5 mg PO BID PRN (Reason: pain (scale score 7-10)) Rx Instructions: Partial Fill upon patient request. albuterol sulfate [Ventolin HFA] 90 mcg/actuation HFA aerosol inhaler 2 puff PO Q6H PRN (Reason: Shortness Of Breath Or Wheezing) Discharge Date/Time: 04/05/23 19:07
== END 2023-04-05 19:07 | disposition expired | DRG 853 ==
LOC: HO.ED 23:39 → HO.ICU 04-02 06:41 → HO.IMC 04-04 06:06
PROVIDERS: Nurse Practitioner Family; Admitting Provider Surgery; Emergency Provider Internal Medicine; PCP Internal Medicine; Visit Provider Surgery
PROC: 0D1B0Z4 Bypass Ileum to Cutaneous, Open Approach (ICD-10-PCS; CPT 49000; principal; 2023-04-02 12:00)
DX: A41.9 Sepsis, unspecified organism (principal); K56.2 Volvulus; J96.11 Chronic respiratory failure with hypoxia; K57.30 Diverticulosis of large intestine without perforation or abscess without bleeding; J44.9 Chronic obstructive pulmonary disease, unspecified; F41.9 Anxiety disorder, unspecified; Z51.5 Encounter for palliative care; I48.91 Unspecified atrial fibrillation; Z20.822 Contact with and (suspected) exposure to COVID-19; Z90.2 Acquired absence of lung [part of]; Z86.711 Personal history of pulmonary embolism; Z66 Do not resuscitate; Z85.3 Personal history of malignant neoplasm of breast; Z85.118 Personal history of other malignant neoplasm of bronchus and lung; Z99.81 Dependence on supplemental oxygen; Z86.718 Personal history of other venous thrombosis and embolism; Z87.891 Personal history of nicotine dependence; Z79.01 Long term (current) use of anticoagulants; Z79.899 Other long term (current) drug therapy
CPT/HCPCS: 0241U; 36415; 71045; 74177; 80048; 80076; 81001; 82040; 82803; 83605; 83690; 83735; 83880; 84100; 85025; 85610; 86850; 86900; 86901; 86923; 87040; 87086; 88307; 93005; 94002; 94003; 94640; 99024; 99285; J0131; J0665; J1170; J1644; J1940; J2060; J2250; J2270; J2371; J2405; J2543; J2704; J3430; J3480; P9016; P9017; P9047; Q9967

== ENCOUNTER → 2023-04-01 23:23 | Outpatient (BNV) | payer MEDICARE, SELFPAY | PROVIDERS: Admitting Provider Surgery; Emergency Provider Internal Medicine; PCP Internal Medicine; Visit Provider Internal Medicine Cardiovascular Disease | DX: R94.31 Abnormal electrocardiogram [ECG] [EKG] (principal) | CPT/HCPCS: 93010 ==

== ENCOUNTER → 2023-04-02 03:40 | Outpatient (BNV) | payer MEDICARE, SELFPAY | PROVIDERS: Admitting Provider Surgery; Emergency Provider Internal Medicine; PCP Internal Medicine; Visit Provider Surgery | DX: R19.8 Other specified symptoms and signs involving the digestive system and abdomen (principal); K66.8 Other specified disorders of peritoneum | CPT/HCPCS: 44144; 99024; 99223; 99232; 99499 ==

== ENCOUNTER → 2023-04-02 03:40 | Outpatient (BNV) | payer MEDICARE, SELFPAY | PROVIDERS: Admitting Provider Surgery; Emergency Provider Internal Medicine; PCP Internal Medicine; Visit Provider Hospitalist | DX: R19.8 Other specified symptoms and signs involving the digestive system and abdomen (principal); J96.11 Chronic respiratory failure with hypoxia | CPT/HCPCS: 99233; 99499 ==

== ENCOUNTER → 2023-04-02 03:40 | Outpatient (BNV) | payer MEDICARE, SELFPAY | PROVIDERS: Admitting Provider Surgery; Emergency Provider Internal Medicine; PCP Internal Medicine; Visit Provider Internal Medicine Cardiovascular Disease | DX: I73.9 Peripheral vascular disease, unspecified (principal); R19.8 Other specified symptoms and signs involving the digestive system and abdomen; K63.1 Perforation of intestine (nontraumatic); Z98.890 Other specified postprocedural states; A41.9 Sepsis, unspecified organism; I82.431 Acute embolism and thrombosis of right popliteal vein; L03.115 Cellulitis of right lower limb; M70.62 Trochanteric bursitis, left hip; M12.812 Other specific arthropathies, not elsewhere classified, left shoulder; M12.811 Other specific arthropathies, not elsewhere classified, right shoulder; S32.599A Other specified fracture of unspecified pubis, initial encounter for closed fracture; J96.91 Respiratory failure, unspecified with hypoxia | CPT/HCPCS: 99291 ==